=== PATIENT | female | born 1940 | race Caucasian/White ===

== ENCOUNTER 2017-12-12 12:18 | Emergency (ER) | payer MEDICARE, SELFPAY ==
[2017-12-12 12:20] VITALS: BP 191/78; PULSE 60; RESP 16; TEMP 36.7; O2SAT 98; BMI 26.1
--- NOTE | 2017-12-12 13:05 | EKG12_ITS ---
Test Reason : SOB Blood Pressure : / mmHG Vent. Rate : 060 BPM Atrial Rate : 051 BPM P-R Int : 000 ms QRS Dur : 158 ms QT Int : 474 ms P-R-T Axes : 000 -68 101 degrees QTc Int : 474 ms Ventricular-paced rhythm Abnormal ECG Confirmed by STEFANIE MOHR, SERGIO ([id number]), business editor PUSHPA MONTANO ([id number] on 12/14/2017 10:36:29 AM Referred By: VERONIKA Confirmed By:SERGIO WATTS MD
[2017-12-12 13:44] VITALS: BP 165/81; PULSE 60; RESP 16; O2SAT 96
[2017-12-12 13:48] LABS: Prothrombin Time (Protime)PT. 22.2 SECONDS (11.7-14.9)
--- NOTE | 2017-12-12 14:05 | RAD_ITS ---
STUDY: X-RAY CHEST REASON FOR EXAM: Female, 77 years old. Chest pain. Dyspnea on extrusion. TECHNIQUE: PA and lateral views of the chest. COMPARISON: None. FINDINGS: The lungs are clear and expanded. There is no demonstrated pleural abnormality. There is moderate cardiac enlargement. A left-sided dual-chamber pacemaker is seen. Normal mediastinum and luis. Normal visualized pulmonary arteries. There is atherosclerotic calcification of the aortic arch with tortuosity. There are diffuse degenerative changes of the visualized thoracic spine. There is degenerative osteoarthritis of the bilateral shoulders. There is no demonstrated abnormality of the visualized soft tissue structures of the upper abdomen. RAD/Chest PA and Lateral IMPRESSION: Moderate cardiomegaly. Electronically Signed: Trevin Montalvo MD at 14:27 EST Tel [phone], Service support ,
[2017-12-12 14:16] VITALS: BP 136/73; PULSE 60; RESP 16; O2SAT 96
[2017-12-12 15:05] VITALS: BP 163/67; PULSE 60; RESP 16; O2SAT 96
[2017-12-12 15:34] LABS: Anion Gap 10 (5-15); BUN 20 mg/dL (7-18); BUN/Creat Ratio 20.6 RATIO (10-20); Calcium,Total 9.4 mg/dL (8.5-10.1); Chloride 97 mmol/L (98-107); Creatinine, Serum 0.97 mg/dL (0.55-1.02); EST Glomerular Filtration Rate 59 mL/min (>60); Est Glom Filt Rate - Afr Amer 71 mL/min (>60); Estimated Creatinine Clearance 38.41 ml/min; Glucose 126 mg/dL (74-106); Potassium 4.2 mmol/L (3.5-5.1); Sodium Level 132 mmol/L (136-145)
[2017-12-12 15:36] LABS: BNP,B-Type NATRIURETIC PEPTIDE 225.5 pg/mL (0-100)
[2017-12-12 16:04] VITALS: BP 171/62; PULSE 60; RESP 16; O2SAT 96
--- NOTE | 2017-12-12 16:46 | ED.DCSUM_ITS ---
- ER Visit Summary Date of Service: 12/12/17 Chief Complaint: Increased shortness of breath, orthopnea and dyspnea on exertion History of Present Illness: The patient is a 77 F who has history of CHF, chronic atrial fibrillation on Coumadin, who presents with increasing dyspnea and orthopnea. She has chronic dyspnea on exertion. She also reported burning sensation in her chest since early this morning. The burning sensation was not made worse with walking or activity. She admits that she is not compliant with her diet and specifically salt. She states she is compliant with her medication , however. She was admitted to [facility] the end of last year and had 2 L of brown murky fluid drained from her pericardium. The fluid apparently was misplaced according to the patient and her granddaughter. She denies any fever, chills night sweats. She denies any visual, ocular or auditory symptoms. She denies any nausea, vomiting or diarrhea. She denies any urologic symptoms. She denies headache or weakness. She is on Coumadin but does not report bruising easily. Physical Examination: Vital signs are remarkable elevated blood pressure 191/ 78. Heart rate is 60 and paced on the rhythm, respiratory rate 16 and pulse ox 98% on room air. Head is atraumatic normocephalic. Pupils are equal round reactive. Extraocular muscles are intact. TMs are pearly white with landmarks noted. Nares patent with no drainage. Posterior pharynx without erythema or exudate. Uvula is midline. There is no dysphonia or dysphasia. Trachea is midline. There is no stridor with auscultation of the neck. Heart is regular without murmur, gallop or rub. S1 and S2 are normal. Lungs are clear to auscultation with good movement of air bilaterally. Abdomen soft nontender with no palpable subtle mass abdominal bruit. She has no reproducible chest pain. There is 2+ pitting edema of the lower extremities. Neuro exam is nonfocal. Test Results: She reveals a ventricular paced rhythm with a rate of 60. The underlying rhythm is a bed. Chest x-ray reveals cardiomegaly and mild CHF. Electrode panel is unremarkable. Troponin is less than 0.02 with hours of pain. BNP is 225. Emergency Department Course and Treatment: Will increase Lasix for the next 3-5 days and have her follow-up with her primary care physician Dr. Peñaloza. Stressed the importance of compliance with her diet. Treatment Plan: Diuresis as an outpatient with outpatient follow-up Disposition: Discharge to home Impression: 1. Exacerbation of CHF 2. History of atrial fibrillation on Coumadin 3. History of pericardial effusion secondary to pericarditis This note was generated with [employer] software. It may contain incorrect words, spelling, and punctuation that were not noted in review of the chart prior to signing ED Disposition - Plan for ED Patient: Disposition: Home or Assisted Living Chief Complaint: Shortness of Breath Instructions: ED CHF General Referrals: Rashad Peñaloza [Primary Care Provider] - 3-5 Days Additional Instructions: Take an additional Lasix pill at 3:00 for the next 3 days
[2017-12-12] MEDS: Furosemide 40 MG Tablet 80 MG PO (17:07)
[2017-12-12 17:10] VITALS: BP 178/90; PULSE 62; RESP 16; O2SAT 97
== END 2017-12-12 17:11 | disposition home or self-care (01) ==
PROVIDERS: Emergency Provider Emergency Medicine; Family Provider Family Medicine; PCP Family Medicine
DX: I50.9 Heart failure, unspecified (principal); I48.91 Unspecified atrial fibrillation; Z79.01 Long term (current) use of anticoagulants; I31.9 Disease of pericardium, unspecified; Z79.899 Other long term (current) drug therapy
CPT/HCPCS: 36415; 71046; 80048; 83880; 84484; 85610; 93005; 99283

== ENCOUNTER → 2020-06-02 12:55 | Outpatient (CLI) | payer MEDICARE, SELFPAY ==
[2020-01-20 14:40] VITALS: BMI 26.5
--- NOTE | 2020-06-02 12:58 | ECHOD_ITS ---
Reason For Study: PHTN Procedure This was a 2D Doppler, Color Flow transthoracic echocardiogram. The study was technically difficult. Exam performed in department. Left Ventricle Normal size and thickness. The estimated ejection fraction is 65 %. Unable to assess diastolic dysfunction due to arrhythmia. No regional wall motion abnormalities noted. Right Ventricle Normal size and thickness. ICD or pacer leads identified within the right ventricle. A moderator band is seen in the right ventricle. Normal systolic function. Atria The left atrium is moderately enlarged. Normal right atrium. Normal atrial septum. Mitral Valve Anterior leaflet diffuse mitral valve thickening. There is no mitral valve stenosis. Mild (1+) posteriorly directed mitral valve insufficiency. Tricuspid Valve Normal tricuspid valve. Mild (1+) tricuspid valve insufficiency. Right ventricular systolic pressure estimated to be 43 mmHg. Mild pulmonary hypertension. Aortic Valve Trisinus/trileaflet aortic valve. Moderate diffuse aortic valve thickening. Trivial aortic valve insufficiency. Pulmonic Valve Normal pulmonic valve. Trivial pulmonic valve insufficiency. Great Vessels Normal aortic root. Normal arch. The inferior vena cava is dilated. No collapse of the inferior vena cava. Pericardium/Pleural No pericardial effusion. MMode/2D Measurements & Calculations LVIDd: 4.4 cm IVSd: 1.3 cm LVOT diam: 2.1 cm LVIDs: 2.6 cm LVPWd: 0.96 cm LVOT area: 3.6 cm2 RVDd: 3.5 cm FS: 40.7 % Ao root diam: 3.2 cm LAV(MOD-bp): 103.6 ml LA A4 area: 29.3 cm2 LA dimension: 5.3 cm LAV(MOD-bp) Indexed: 61.8 ml/m2 LAV(MOD-sp2): 103.9 ml LAV(MOD-sp4): 100.4 ml RA A4 area: 18.2 cm2 Doppler Measurements & Calculations MV E max stephanie: 174.3 cm/sec Ao V2 max: 145.1 cm/sec AI max stephanie: 375.3 cm/sec Ao max P.5 mmHg AI max P.4 mmHg FRANCHESCA(V,D): 2.7 cm2 AI dec slope: 229.8 cm/sec2 AI P1/2t: 478.4 msec LV V1 max: 109.7 cm/sec MR max stephanie: 517.7 cm/sec PA V2 max: 75.8 cm/sec LV V1 max P.8 mmHg MR max P.2 mmHg TR max stephanie: 285.2 cm/sec TR max P.5 mmHg Interpretation Summary The estimated ejection fraction is 65 %. Unable to assess diastolic dysfunction due to arrhythmia. The left atrium is moderately enlarged. Mild (1+) posteriorly directed mitral valve insufficiency. Mild (1+) tricuspid valve insufficiency. Right ventricular systolic pressure estimated to be 43 mmHg. Mild pulmonary hypertension. Trivial aortic valve insufficiency. There is no comparison study available. Ordering Physician: Joseph Peterson Referring Physician: Rashad Peñaloza Performed By: Deborah Pandya RVT, RDCS and Student
== END ==
PROVIDERS: PCP Family Medicine; Referring Provider Internal Medicine Cardiovascular Disease; Visit Provider Internal Medicine Cardiovascular Disease
DX: I31.3 Pericardial effusion (noninflammatory) (principal)
CPT/HCPCS: 93306

== ENCOUNTER → 2021-01-04 09:36 | Outpatient (CLI) | payer MEDICARE, SELFPAY ==
[2020-12-15 15:11] VITALS: BMI 27.4
[2021-01-04 10:20] LABS: Absolute Lymphocyte Count 1.51 X10^3/uL (0.83-4.51); Absolute Neutrophil Count 5.5 X10^3/uL (2.0-7.7); Basophil# 0.06 X10^3/uL; Basophil% 0.8 % (0-1); Eosinophil# 0.17 X10^3/uL; Eosinophils% 2.2 % (0-5); Hematocrit 33.9 % (37-47); Hemoglobin 11.1 g/dL (12.0-15.0); Lymphocyte # 1.51 X10^3/ul (4.0); Lymphocyte % 19.1 % (19-41); Mean Corp Hgb Conc 32.7 g/dL (32-36); Mean Corpuscular Hgb 29.8 pg (27.0-32.0); Mean Corpuscular Volume 90.9 fL (81-99); Monocyte# 0.59 X10^3/uL; Monocyte% 7.5 % (0-10); NRBC Flagged by Analyzer 0 % (0-5); Neutrophil # 5.54 X10^3/uL (2.7-7.7); Neutrophil % 70.1 % (47-70); Platelet Count 326 K/mm3 (150-450); RBC Distribution Width CV 14.3 % (11.6-14.6); RBC Distribution Width SD 47.2 fl (35.1-43.9); Red Blood Count 3.73 M/mm3 (4.2-5.4); White Blood Count 7.9 K/mm3 (4.4-11.0)
[2021-01-04 10:44] LABS: BNP,B-Type NATRIURETIC PEPTIDE 411.5 pg/mL (0-100)
[2021-01-04 10:55] LABS: AST(SGOT) 26 U/L (15-37); Alanine Aminotransfer ALT/SGPT 29 U/L (13-56); Alkaline Phosphatase 106 U/L (45-117); Anion Gap 6 (5-15); BUN 12 mg/dL (7-18); BUN/Creat Ratio 14.4 RATIO (10-20); Calcium,Total 9.3 mg/dL (8.5-10.1); Chloride 98 mmol/L (98-107); Creatinine, Serum 0.83 mg/dL (0.55-1.02); EST Glomerular Filtration Rate 70 mL/min (>60); Est Glom Filt Rate - Afr Amer 85 mL/min (>60); Globulin 3.9 g/dL (2.2-4.2); Glucose 97 mg/dL (74-106); Potassium 3.4 mmol/L (3.5-5.1); Protein, Total 7.9 g/dL (6.4-8.2); Sodium Level 135 mmol/L (136-145); T4 Free Direct 1.45 ng/dL (0.76-1.46); Thyroid Stim Hormone (TSH) 0.29 uIU/mL (0.358-3.74)
== END ==
PROVIDERS: PCP Family Medicine; Referring Provider Nurse Practitioner Family; Visit Provider Nurse Practitioner Family
DX: I11.0 Hypertensive heart disease with heart failure (principal); I50.30 Unspecified diastolic (congestive) heart failure; I48.11 Longstanding persistent atrial fibrillation; R06.00 Dyspnea, unspecified; I31.3 Pericardial effusion (noninflammatory); Z95.0 Presence of cardiac pacemaker
CPT/HCPCS: 36415; 80053; 83880; 84439; 84443; 85025

== ENCOUNTER → 2021-01-06 12:51 | Outpatient (CLI) | payer MEDICARE, SELFPAY ==
[2020-12-15 15:11] VITALS: BMI 27.4
--- NOTE | 2021-01-06 13:18 | RAD_ITS ---
STUDY: X-RAY CHEST REASON FOR EXAM: Female, 80 years old. Shortness of breath, hx diastolic CHF -- Do prior to echo at 2pm today TECHNIQUE: 2 views COMPARISON: None. FINDINGS: Lung salsa are well-expanded without consolidation, focal atelectasis or a substantial pleural effusion. There is no demonstrated pleural abnormality. Cardiomegaly with right atrial pacemaker lead and 2 right ventricular pacemaker leads in good position. Normal mediastinum and luis. Normal visualized pulmonary arteries. There is atherosclerotic calcification of the aortic arch with tortuosity. Demineralized osseous structures with diffuse degenerative disc changes and a moderate increase in general kyphosis. Osteoarthritic changes of the glenohumeral joints and bilateral chronic rotator cuff changes, right greater than left. There is no demonstrated abnormality of the visualized soft tissue structures of the upper abdomen. RAD/Chest PA and Lateral IMPRESSION: Negative for consolidation, focal atelectasis or a substantial pleural effusion. Cardiomegaly. ICD in good position. Atherosclerotic changes in the aorta. Benign osseous findings as described above. Electronically Signed: Linh Castellanos MD at 16:34 EST , Service support ,
--- NOTE | 2021-01-06 13:35 | ECHOD_ITS ---
Reason For Study: MURMUR Procedure This was a 2D Doppler, Color Flow transthoracic echocardiogram. The study was technically difficult. Exam performed in department. Left Ventricle Normal LV size. Left ventricular systolic function is normal. The estimated ejection fraction is 65 %. Unable to assess diastolic dysfunction. No regional wall motion abnormalities noted. Right Ventricle Normal RV size. ICD or pacer leads identified within the right ventricle. Normal systolic function. Atria The left atrium is severely enlarged. Normal right atrium. ICD or pacer leads identified within the right atrium. No doppler evidence for ASD. Mitral Valve There is no mitral annular calcification. Moderate focal mitral valve calcification of the anterior leaflet. Moderately severe (3+) eccentric mitral valve insufficiency. Tricuspid Valve Normal tricuspid valve. Mild tricuspid valve insufficiency. Right ventricular systolic pressure estimated to be 42 mmHg. Aortic Valve Trisinus/trileaflet aortic valve. Mild diffuse aortic valve thickening. Mild focal aortic valve calcification. Mild (1+) aortic valve insufficiency. Pulmonic Valve The pulmonic valve is not well visualized. Trivial pulmonic valve insufficiency. Great Vessels Mildly dilated aortic root. Pericardium/Pleural No pericardial effusion. MMode/2D Measurements & Calculations LVIDd: 3.7 cm IVSd: 1.2 cm LVOT diam: 2.0 cm LVIDs: 2.2 cm LVPWd: 1.2 cm LVOT area: 3.3 cm2 RVDd: 3.1 cm FS: 39.3 % Ao root diam: 4.2 cm LAV(MOD-bp): 100.0 ml LVAd ap4: 24.1 cm2 LAV(MOD-bp) Indexed: 59.1 ml/m2 EDV(MOD-sp4): 66.2 ml LAV(MOD-sp2): 108.3 ml EDV(sp4-el): 68.2 ml LAV(MOD-sp4): 88.8 ml LVAs ap4: 13.9 cm2 ESV(MOD-sp4): 23.2 ml ESV(sp4-el): 24.3 ml EF(MOD-sp4): 64.9 % EF(sp4-el): 64.4 % SV(MOD-sp4): 43.0 ml SV(sp4-el): 43.9 ml LA A4 area: 28.0 cm2 LA dimension(2D): 4.8 cm RA A4 area: 11.0 cm2 Time Measurements MV dec time: 0.18 sec Doppler Measurements & Calculations MV E max stephanie: 156.5 cm/sec Ao V2 max: 199.8 cm/sec AI max stephanie: 488.4 cm/sec Ao max P.0 mmHg AI max P.6 mmHg Ao V2 mean: 137.1 cm/sec AI dec slope: 218.0 cm/sec2 Ao mean P.5 mmHg AI P1/2t: 656.2 msec Ao V2 VTI: 38.3 cm FRANCHESCA(I,D): 2.3 cm2 FRANCHESCA(V,D): 2.3 cm2 LV V1 max: 141.4 cm/sec SV(LVOT): 89.8 ml PA V2 max: 104.7 cm/sec LV V1 max P.0 mmHg LV V1 mean P.2 mmHg LV V1 mean: 95.9 cm/sec LV V1 VTI: 27.2 cm TR max stephanie: 301.6 cm/sec TR max P.8 mmHg Interpretation Summary The study was technically difficult. Left ventricular systolic function is normal. The estimated ejection fraction is 65 %. The left atrium is severely enlarged. Moderate focal mitral valve calcification of the anterior leaflet. Moderately severe (3+) eccentric mitral valve insufficiency. Mild tricuspid valve insufficiency. Mild diffuse aortic valve thickening. Mild focal aortic valve calcification. Mild (1+) aortic valve insufficiency. Trivial pulmonic valve insufficiency. Mildly dilated aortic root. Right ventricular systolic pressure estimated to be 42 mmHg. Unable to assess diastolic dysfunction. ICD or pacer leads identified within the right atrium ICD or pacer leads identified within the right ventricle. Ordering Physician: Anthony Donato Referring Physician: ANTHONY POWER Performed By: Basilia Dong, ALEXUS, RVT
[2021-01-06 15:29] LABS: Hemoglobin 10.4 g/dL (12.0-15.0); Mean Corp Hgb Conc 31.5 g/dL (32-36); Mean Corpuscular Volume 91.9 fL (81-99); Platelet Count 353 K/mm3 (150-450); RBC Distribution Width CV 14.3 % (11.6-14.6); RBC Distribution Width SD 48.2 fl (35.1-43.9); Red Blood Count 3.59 M/mm3 (4.2-5.4); White Blood Count 7.3 K/mm3 (4.4-11.0)
[2021-01-06 15:46] LABS: Anion Gap 8 (5-15); BUN 14 mg/dL (7-18); BUN/Creat Ratio 14.9 RATIO (10-20); Calcium,Total 9.3 mg/dL (8.5-10.1); Chloride 96 mmol/L (98-107); Creatinine, Serum 0.94 mg/dL (0.55-1.02); EST Glomerular Filtration Rate 61 mL/min (>60); Est Glom Filt Rate - Afr Amer 73 mL/min (>60); Glucose 99 mg/dL (74-106); Potassium 3.4 mmol/L (3.5-5.1); Sodium Level 135 mmol/L (136-145)
[2021-01-06 15:52] LABS: International Normalized Ratio 2.4; Prothrombin Time (Protime)PT. 25.4 SECONDS (11.7-14.9)
== END ==
PROVIDERS: PCP Family Medicine; Referring Provider Nurse Practitioner Family; Visit Provider Nurse Practitioner Family
DX: I50.32 Chronic diastolic (congestive) heart failure (principal); R06.02 Shortness of breath; E87.6 Hypokalemia; I48.11 Longstanding persistent atrial fibrillation; I31.3 Pericardial effusion (noninflammatory); I35.8 Other nonrheumatic aortic valve disorders; Z79.01 Long term (current) use of anticoagulants; Z95.0 Presence of cardiac pacemaker
CPT/HCPCS: 36415; 71046; 80048; 83880; 85027; 85610; 93306

== ENCOUNTER 2021-01-07 09:30 | Outpatient (RCR) | payer MEDICARE, SELFPAY ==
[2020-12-15 15:11] VITALS: BMI 27.4
--- NOTE | 2021-01-05 12:12 | HP.PTEVAL_ITS ---
Patient's Visit Information JEANINE JARAMILLO is a 80 year old F referred to Physical Therapy by Nilson Coleman PA-C with a diagnosis of BACK AND LEG PAIN. Date of Evaluation: 01/05/21 Physical Therapist: Nilda Ramirez PT, Cert MDT - Visit Plan Frequency: 2-3x /Week Duration: 4-6 Weeks Plan: *PACEMAKER*. NO ULTRASOUND OR E-STIM. POSTURE CORRECTION/STRENGTHENING, INSTRUCTION IN APPROPRIATE BODY MECHANICS AND ACTIVITY MODIFICATIONS. DLS STARTING WITH A NEUTRAL SPINE PROGRESSING ROM TOLERATED. YASMIN LE ROM, STRETCHING AND STRENGTHENING. HEP INSTRUCTION. - Subjective Work/Leisure: RETIRED. Present symptoms: YASMIN LOW BACK PAIN, YASMIN HIP PAIN, YASMIN THIGH PAIN, YASMIN LEG AND YASMIN FOOT PAIN. PATIENT DENIES YASMIN LE NUMBNESS AND TINGLING. Present since: CHRONIC LOW BACK PAIN BUT GOT WORSE LAST WEEK. Pain Scale: WORST 8/10, LEAST 6/10. Currently: 04/07. Commenced as a result of: NO APPARENT REASON. WOKE UP WITH IT AND COULDN'T STAND. Symptoms at onset: FROM THE WAIST DOWN. BUT RIGHT BUTTOCK STARTED HURTING MILDLY A FEW WEEKS AGO. THEN HAD THE SEVERE EPISODE LAST WEEK WHEN COULDN'T GET OUT OF BED. Worse: MVMT, TRYING TO GET OUT OF A CHAIR, BENDING OVER IS ALMOST IMPOSSIBLE, SITTING VERY LONG, LYING VERY LONG, STANDING, WALKING. REALLY SORE IN YASMIN BUTTOCK AREAS IN SITTING. Better: REST, FREQUENT CHANGE OF POSITION, LYING DOWN, ICE PACK, PROPPING LEGS UP WITH PILLOWS. Disturbed sleep: YES. Previous history/Previ ous treatment: NO BACK SURGERY, NO INJECTIONS. EPISODIC LOW BACK PAIN AND EPISODES OF BACK FREEZING UP FOR YEARS FOR NO APPARENT REASON AND TREATMENTS BY CHIROPRACTOR. PT OFF AND ON FOR 8-10 YEARS - SOMETIMES HELPS AND IT HAS BEEN PRETTY GOOD OVER-ALL UNTIL LAST WEEK. PATIENT REPORTS THAT AFTER SHE STARTED NOTICING INCREASED RIGHT BUTTOCK PAIN SHE WENT TO A MASSAGE THERPIST AND FELT BETTER DECEMBER 30 2019 BUT SHE THINKS IT WAS THE NEXT DAY THAT SHE COULDN'T GET OUT OF BED AND CANCELLED HER HEART ULTRASOUND. Treatment this episode: PT ORDER. Coughing/sneezing/straining: POSITIVE. Gait: PATIENT REPORTS SHE IS LIMPING AND IT IS VERY HARD TO WALK DUE TO THE PAIN SINCE LAST WEEK. GETTING A LITTLE BETTER. Difficulty initiating urinatin: NO. Accidents: NO. Unexplained weight loss: NO. Imaging: RECENT LOW BACK X-RAYS - PATIENT REPORTS RAY MAI REILLY TOLD HER IT IS BONE ON BONE IN HER BACK. PMH/Recent major surgery: H/O HAVING FLUID AROUND HEART. ARTHRITIS, CHRONIC PAIN PRETTY MUCH ALL OVER AND PAIN MEDICINE HELPS SOME. R TKR. YASMIN SHLD PAIN AND DYSFUNCTION - REVERSE TSR'S RECOMMENDED PER PATIENT REPORT. OTHER: HAVING US OF THE HEART TOMORROW FOR INCREASED LEG/FOOT SWELLING. HEART MEDICATION WAS INCREASED ABOUT 3 WEEKS AGO. INCREASED HER DIURETICS SUNDAY. *PACEMAKER* - Objective Sitting/Standing Posture: POOR. REDUCED LORDOSIS. SCOLIOSIS. INCREASED KYPHOSIS. Active Correction of posture: WORSE. Other Observations: SLOW ANTALGIC GAIT INTO PT WITHOUT ANY ASSISTIVE DEVICES AND STOPS OCCASSIONALLY TO CATCH HER BREATHE BUT REFUSES OFFERS TO SIT DOWN AND REST. PATIENT IS VERY UE DEPENDENT TO TRANSFER FROM SIT TO STAND AND HAS A HARD TIME TRYING TO GET ERECT (UNABLE TO STAND UP STRAIGHT) AND INITIATE GAIT. YASMIN LEG, ANKLE AND FOOT EDEMA L>R AND PATIENT REPORTS THIS IS NEW AND HER HEART DOCTOR IS AWARE. Motor deficit: YASMIN LE STRENGTH GROSSLY 4/5 WITH MMT'ING. Sensory deficit: YASMIN LE LIGHT TOUCH SENSATION INTACT AND SYMMETRICAL. ROM deficit: TIGHT YASMIN LE HIP FLEXORS, HS'S AND GASTROC-SOLEUS COMPLEX'S. Reflexes: NT. Dural Signs: POSITIVE YASMIN LE'S. Lumbar mvmt loss: flex - MOD. ext - ABA. R SG - ABA. L SG - ABA. Core strength: POOR. Palpation: TENDERNESS THROUGHOUT LOW BACK AND BUTTOCK AREAS WITH LIGHT PALPATION. TREATMENT: NEUROMUSCULAR REEDUCATION - RETRAINING OF MVMT AND POSTURE FOR SITTING, LYING AND STANDING ACTIVITIES. - Goals Goal 1:: DECREASE C/O LOW BACK AND YASMIN LE PAIN. Goal Time Frame: 4-6 Weeks Goal 2:: IMPROVE PERSONAL CARE, LIFTING, WALKING, SITTING, STANDING, SLEEP, SOCIAL LIFE, TRAVEL AND HOMEMAKING FUNCTION. Goal Time Frame: 4-6 Weeks Goal 3:: INSTRUCT IN PROPHYLAXIS Goal Time Frame: 4-6 Weeks - Anticipated Interventions Patient/Client Instruction: Educate patient on: Condition, Plan of Care, Risk Factors For the Purpose of:: To improve self management Therapeutic Exercise to Include: Strength training, Body mechanics, Postural training, Flexibilty training, Gait and locomotor training, Neuromotor development, Dynamic Lumbar Stabilization For the Purpose of:: To decrease pain, To improve muscle performance and motor function, To increase tolerance to activity/condition/position, To improve ability of physical actions for home/community/work/leisure, To improve gait and locomotor functions Thank you for the opportunity to evaluate your patient. For Medicare and Medicare HMO plans, please review the plan of care and approve it. It will need to be FAXED BACK to us at [phone] for Medicare purposes. For Medicare only, by signing this I certify the plan of care. Please let me know if there are questions or concerns regarding this plan of care. Physician S ignature: Date:
== END 2021-01-07 19:00 | disposition home or self-care (01) ==
LOC: PT 09:30
PROVIDERS: PCP Family Medicine; Referring Provider Physician Assistant Surgical; Visit Provider Physician Assistant Surgical
DX: M51.36 Other intervertebral disc degeneration, lumbar region (principal)
CPT/HCPCS: 97110; 97112; 97162

== ENCOUNTER → 2021-01-10 10:18 | Outpatient (CLI) | payer MEDICARE, SELFPAY ==
[2021-01-06 15:35] VITALS: BMI 26.2
[2021-01-10 11:43] LABS: Absolute Lymphocyte Count 1.58 X10^3/uL (0.83-4.51); Absolute Neutrophil Count 3.7 X10^3/uL (2.0-7.7); Basophil# 0.05 X10^3/uL; Basophil% 0.8 % (0-1); Eosinophil# 0.17 X10^3/uL; Eosinophils% 2.8 % (0-5); Hematocrit 34.1 % (37-47); Hemoglobin 10.7 g/dL (12.0-15.0); Lymphocyte # 1.58 X10^3/ul (4.0); Lymphocyte % 26.2 % (19-41); Mean Corp Hgb Conc 31.4 g/dL (32-36); Mean Corpuscular Hgb 28.7 pg (27.0-32.0); Mean Corpuscular Volume 91.4 fL (81-99); Mean Platelet Vol. 8.9 fl (6.2-12.0); Monocyte# 0.55 X10^3/uL; Monocyte% 9.1 % (0-10); NRBC Flagged by Analyzer 0 % (0-5); Neutrophil # 3.66 X10^3/uL (2.7-7.7); Neutrophil % 60.8 % (47-70); Platelet Count 321 K/mm3 (150-450); RBC Distribution Width CV 14.2 % (11.6-14.6); RBC Distribution Width SD 48.2 fl (35.1-43.9); Red Blood Count 3.73 M/mm3 (4.2-5.4)
[2021-01-10 12:01] LABS: Anion Gap 5 (5-15); BUN 21 mg/dL (7-18); Chloride 99 mmol/L (98-107); Creatinine, Serum 0.96 mg/dL (0.55-1.02); EST Glomerular Filtration Rate 60 mL/min (>60); Est Glom Filt Rate - Afr Amer 72 mL/min (>60); Glucose 81 mg/dL (74-106); Potassium 3.6 mmol/L (3.5-5.1); Sodium Level 135 mmol/L (136-145)
== END ==
PROVIDERS: PCP Family Medicine; Referring Provider Nurse Practitioner Family; Visit Provider Nurse Practitioner Family
DX: I11.0 Hypertensive heart disease with heart failure (principal); I50.32 Chronic diastolic (congestive) heart failure; I34.0 Nonrheumatic mitral (valve) insufficiency; I48.11 Longstanding persistent atrial fibrillation; I31.3 Pericardial effusion (noninflammatory); D64.9 Anemia, unspecified
CPT/HCPCS: 36415; 80048; 85025

== ENCOUNTER → 2021-06-22 14:52 | Outpatient (CLI) | payer MEDICARE, SELFPAY ==
[2021-06-03 13:13] VITALS: BMI 25.7
--- NOTE | 2021-06-22 14:55 | ECHOD_ITS ---
Reason For Study: Murmur Procedure This was a 2D Doppler, Color Flow transthoracic echocardiogram. Exam performed in department. Left Ventricle Normal LV size. Left ventricular systolic function is normal. The estimated ejection fraction is 65 %. Unable to assess diastolic dysfunction. No regional wall motion abnormalities noted. Right Ventricle Normal RV size. ICD or pacer leads identified within the right ventricle. Normal systolic function. Atria The left atrium is severely enlarged. The right atrium is mildly enlarged. ICD or pacer leads identified within the right atrium. No doppler evidence for ASD. Mitral Valve There is no mitral annular calcification. Moderate focal mitral valve calcification of the anterior leaflet. Moderate (2+) eccentric mitral valve insufficiency. Tricuspid Valve Normal tricuspid valve. Trivial tricuspid valve insufficiency. Right ventricular systolic pressure estimated to be 43 mmHg. Aortic Valve Trisinus/trileaflet aortic valve. Mild focal aortic valve calcification. Trivial aortic valve insufficiency. Pulmonic Valve The pulmonic valve is not well visualized. Trivial pulmonic valve insufficiency. Great Vessels Normal sized aortic root. Pericardium/Pleural No pericardial effusion. MMode/2D Measurements & Calculations LVIDd: 3.8 cm IVSd: 1.4 cm Ao root diam: 3.5 cm LVIDs: 2.1 cm LVPWd: 1.2 cm RVDd: 3.1 cm FS: 45.2 % LAV(MOD-bp): 134.6 ml LVAd ap4: 23.0 cm2 SV(MOD-sp4): 40.0 ml LAV(MOD-bp) Indexed: 83.2 ml/m2 LVLd ap4: 7.0 cm LAV(MOD-sp2): 118.1 ml EDV(MOD-sp4): 63.6 ml LAV(MOD-sp4): 153.6 ml EDV(sp4-el): 64.4 ml LVAs ap4: 13.1 cm2 LVLs ap4: 6.0 cm ESV(MOD-sp4): 23.7 ml ESV(sp4-el): 24.1 ml EF(MOD-sp4): 62.8 % EF(sp4-el): 62.6 % SV(sp4-el): 40.3 ml LA A4 area: 37.4 cm2 LA dimension(2D): 5.9 cm RA A4 area: 16.0 cm2 Doppler Measurements & Calculations MV E max stephanie: 173.6 cm/sec MV V2 max: 196.8 cm/sec Ao V2 max: 192.7 cm/sec MV max P.5 mmHg Ao max P.9 mmHg MV V2 mean: 74.5 cm/sec Ao V2 mean: 133.6 cm/sec MV mean P.5 mmHg Ao mean P.9 mmHg MV V2 VTI: 44.7 cm Ao V2 VTI: 39.0 cm AI max stephanie: 435.1 cm/sec LV V1 max: 144.5 cm/sec PA V2 max: 88.6 cm/sec AI max P.3 mmHg LV V1 max P.4 mmHg AI dec slope: 213.6 cm/sec2 AI P1/2t: 596.8 msec PI end-d stephanie: 107.9 cm/sec TR max stephanie: 317.3 cm/sec TR max P.3 mmHg ECHO/Echo Complete Interpretation Summary Left ventricular systolic function is normal. The estimated ejection fraction is 65 %. The left atrium is severely enlarged. The right atrium is mildly enlarged. Moderate focal mitral valve calcification of the anterior leaflet. Moderate (2+) eccentric mitral valve insufficiency. Trivial tricuspid valve insufficiency. Mild focal aortic valve calcification. Trivial aortic valve insufficiency. Trivial pulmonic valve insufficiency. Right ventricular systolic pressure estimated to be 43 mmHg. Unable to assess diastolic dysfunction. Ordering Physician: Garfield Purcell Referring Physician: Rashad Peñaloza Performed By: Nicole Donato, ALEXUS, RVT
== END ==
LOC: CVS 14:54
PROVIDERS: PCP Family Medicine; Referring Provider Internal Medicine Cardiovascular Disease; Visit Provider Internal Medicine Cardiovascular Disease
DX: I50.32 Chronic diastolic (congestive) heart failure (principal); I34.0 Nonrheumatic mitral (valve) insufficiency
CPT/HCPCS: 93306

== ENCOUNTER 2021-12-26 16:32 | Outpatient (CLI) | payer MEDICARE, SELFPAY ==
[2021-12-26 17:06] LABS: Absolute Lymphocyte Count 1.64 X10^3/uL (0.83-4.51); Absolute Neutrophil Count 4.4 X10^3/uL (2.0-7.7); Basophil# 0.05 X10^3/uL; Basophil% 0.7 % (0-1); Eosinophil# 0.37 X10^3/uL; Eosinophils% 5.1 % (0-5); Hematocrit 34.8 % (37-47); Hemoglobin 11.7 g/dL (12.0-15.0); Lymphocyte # 1.64 X10^3/ul (0.83-4.51); Lymphocyte % 22.5 % (19-41); Mean Corp Hgb Conc 33.6 g/dL (32-36); Mean Corpuscular Hgb 29.8 pg (27.0-32.0); Mean Corpuscular Volume 88.8 fL (81-99); Mean Platelet Vol. 9.1 fl (6.2-12.0); Monocyte# 0.76 X10^3/uL; Monocyte% 10.4 % (0-10); NRBC Flagged by Analyzer 0 % (0-5); Neutrophil # 4.44 X10^3/uL (2.7-7.7); Platelet Count 266 K/mm3 (150-450); RBC Distribution Width CV 14.3 % (11.6-14.6); RBC Distribution Width SD 46.3 fl (35.1-43.9); Red Blood Count 3.92 M/mm3 (4.2-5.4); White Blood Count 7.3 K/mm3 (4.4-11.0)
[2021-12-26 17:49] LABS: AST(SGOT) 23 U/L (15-37); Alanine Aminotransfer ALT/SGPT 22 U/L (13-56); Albumin, Serum 3.8 g/dL (3.2-5.0); Alkaline Phosphatase 91 U/L (45-117); Anion Gap 3 (5-15); BUN 15 mg/dL (7-18); BUN/Creat Ratio 16.5 RATIO (10-20); Bilirubin, Direct 0.12 mg/dL (0.00-0.30); Calcium,Total 9.4 mg/dL (8.5-10.1); Chloride 99 mmol/L (98-107); Cholesterol 203 mg/dL (200); Creatinine, Serum 0.91 mg/dL (0.55-1.02); EST Glomerular Filtration Rate 63 mL/min (>60); Est Glom Filt Rate - Afr Amer 76 mL/min (>60); Globulin 3.7 g/dL (2.2-4.2); Glucose 103 mg/dL (74-106); High Density Lipoprotein 79 mg/dL; Potassium 3.7 mmol/L (3.5-5.1); Protein, Total 7.5 g/dL (6.4-8.2); Sodium Level 134 mmol/L (136-145); T4 Free Direct 1.11 ng/dL (0.76-1.46); Thyroid Stim Hormone (TSH) 0.41 uIU/mL (0.358-3.74); Triglycerides 148 mg/dL; Very Low Density Lipoprotein 30 mg/dL (5-40)
== END 2021-12-26 23:59 | disposition home or self-care (01) ==
LOC: LAB 16:34
PROVIDERS: PCP Family Medicine; Visit Provider Nurse Practitioner Gerontology
DX: R53.83 Other fatigue (principal); E78.5 Hyperlipidemia, unspecified
CPT/HCPCS: 36415; 80048; 80061; 80076; 84439; 84443; 85025

== ENCOUNTER → 2022-02-17 | Outpatient (CLI) | payer MEDICARE, SELFPAY ==
--- NOTE | 2022-02-17 10:15 | RAD_ITS ---
INDICATION: SOB EXAMINATION/TECHNIQUE: X-RAY - XR Chest 2 Views COMPARISON: 01/06/2021. FINDINGS: LINES/DEVICES: AICD visualized in the left chest with leads in the heart. LUNGS: Peribronchial cuffing bilateral hilar prominence is seen that demonstrates no significant change in comparison to the prior study, calcification of ventricular infiltrate is seen. No consolidation, edema or effusion. No pneumothorax. MEDIASTINUM AND CARDIOVASCULAR STRUCTURES: Cardiac silhouette is unchanged in comparison to the prior study, tortuosity of the thoracic aorta is seen. BONES AND SOFT TISSUES: Degenerative bone changes.. RAD/Chest PA and Lateral IMPRESSION: Cardiomegaly and tortuosity of the thoracic aorta demonstrate no change.. No radiographic evidence of acute cardiopulmonary disease. Electronically Signed: Remberto Hernandez MD at 14:35 EDT ,
[2022-02-17 11:27] LABS: BNP,B-Type NATRIURETIC PEPTIDE 272.7 pg/mL (0-100)
[2022-02-17 11:32] LABS: Anion Gap 5 (5-15); BUN 19 mg/dL (7-18); BUN/Creat Ratio 22.4 RATIO (10-20); Chloride 98 mmol/L (98-107); Creatinine, Serum 0.85 mg/dL (0.55-1.02); EST Glomerular Filtration Rate 68 mL/min (>60); Est Glom Filt Rate - Afr Amer 82 mL/min (>60); Glucose 106 mg/dL (74-106); Potassium 4.1 mmol/L (3.5-5.1); Sodium Level 133 mmol/L (136-145)
== END | disposition home or self-care (01) ==
LOC: RAD 09:59
PROVIDERS: PCP Family Medicine; Referring Provider Nurse Practitioner Family; Visit Provider Nurse Practitioner Family
DX: I50.32 Chronic diastolic (congestive) heart failure (principal); R06.02 Shortness of breath
CPT/HCPCS: 36415; 71046; 80048; 83880

== ENCOUNTER → 2022-02-24 | Outpatient (CLI) | payer MEDICARE, SELFPAY ==
[2022-02-24 13:47] LABS: Anion Gap 4 (5-15); BUN 23 mg/dL (7-18); BUN/Creat Ratio 22.5 RATIO (10-20); Calcium,Total 9.2 mg/dL (8.5-10.1); Chloride 97 mmol/L (98-107); Creatinine, Serum 1.02 mg/dL (0.55-1.02); EST Glomerular Filtration Rate 55 mL/min (>60); Est Glom Filt Rate - Afr Amer 67 mL/min (>60); Glucose 129 mg/dL (74-106); Potassium 4.3 mmol/L (3.5-5.1); Sodium Level 131 mmol/L (136-145)
== END | disposition home or self-care (01) ==
LOC: LAB 12:18
PROVIDERS: PCP Family Medicine; Referring Provider Nurse Practitioner Family; Visit Provider Nurse Practitioner Family
DX: I11.0 Hypertensive heart disease with heart failure (principal); I50.32 Chronic diastolic (congestive) heart failure; R06.02 Shortness of breath; I34.0 Nonrheumatic mitral (valve) insufficiency
CPT/HCPCS: 36415; 80048

== ENCOUNTER → 2022-03-07 | Outpatient (CLI) | payer MEDICARE, SELFPAY ==
--- NOTE | 2022-03-07 13:12 | ECHOD_ITS ---
Reason For Study: Murmur Procedure This was a 2D Doppler, Color Flow transthoracic echocardiogram. Technically difficult study, patient refused to lay in the left lateral postion. Echo was done with patient sitting upright at an angle. After Definity was explained Contrast injection was deferred by patient for fear of allergic reaction . The study was technically difficult. Exam performed in department. Left Ventricle Normal LV size. Left ventricular systolic function is normal. The estimated ejection fraction is 60 %. Diastolic function is indeterminate. No regional wall motion abnormalities noted. Right Ventricle Normal RV size. ICD or pacer leads identified within the right ventricle. Normal systolic function. Atria The left atrium is severely enlarged. The right atrium is mildly enlarged. ICD or pacer leads identified within the right atrium. No doppler evidence for ASD. Mitral Valve There is no mitral annular calcification. Moderate focal mitral valve calcification of the anterior leaflet. Mild-Moderate (1-2+) eccentric mitral valve insufficiency. Tricuspid Valve Normal tricuspid valve. Mild tricuspid valve insufficiency. Unable to estimate RV systolic pressure/pulmonary artery pressure due to technically difficult study. Aortic Valve Trisinus/trileaflet aortic valve. Mild focal aortic valve calcification. Trivial aortic valve insufficiency. Pulmonic Valve The pulmonic valve is not well visualized. Great Vessels The aortic root is not well visualized. Pericardium/Pleural No pericardial effusion. MMode/2D Measurements & Calculations LVIDd: 4.2 cm IVSd: 1.1 cm LA dimension: 5.0 cm LVIDs: 2.3 cm LVPWd: 1.1 cm RVDd: 3.8 cm FS: 46.1 % LAV(MOD-bp): 69.2 ml LA A4 area: 28.6 cm2 LAV(MOD-bp) Indexed: 43.7 ml/m2 LAV(MOD-sp2): 31.1 ml LAV(MOD-sp4): 85.7 ml Time Measurements MV dec time: 0.20 sec Doppler Measurements & Calculations MV E max rojelio: 148.6 cm/sec Lat Peak E' Rojelio: 12.9 cm/sec Med Peak E' Rojelio: 8.8 cm/sec MV A max rojelio: 22.1 cm/sec E/E' lat: 11.5 E/E' med: 16.9 MV E/A: 6.7 MV V2 max: 162.6 cm/sec MV P1/2t max rojelio: 161.6 cm/sec Ao V2 max: 126.7 cm/sec MV max P.6 mmHg MV P1/2t: 98.3 msec Ao max P.4 mmHg MV V2 mean: 73.9 cm/sec MV dec slope: 481.5 cm/sec2 MV mean P.0 mmHg MVA(P1/2t): 2.2 cm2 MV V2 VTI: 44.9 cm LV V1 max: 122.0 cm/sec MR max rojelio: 514.2 cm/sec PA V2 max: 125.2 cm/sec LV V1 max P.0 mmHg MR max P.8 mmHg MR mean rojelio: 431.1 cm/sec MR mean P.7 mmHg MR VTI: 167.7 cm ECHO/Echo Complete Interpretation Summary The study was technically difficult. Left ventricular systolic function is normal. The estimated ejection fraction is 60 %. The left atrium is severely enlarged. The right atrium is mildly enlarged. Moderate focal mitral valve calcification of the anterior leaflet. Mild-Moderate (1-2+) eccentric mitral valve insufficiency. Mild tricuspid valve insufficiency. Mild focal aortic valve calcification. Trivial aortic valve insufficiency. Unable to estimate RV systolic pressure/pulmonary artery pressure due to techni gisel difficult study. Diastolic function is indeterminate. Ordering Physician: Orquidea Anderson Referring Physician: Rashad Peñaloza Performed By: Wilmer Travis RCS
[2022-03-07 15:17] LABS: Anion Gap 4 (5-15); BUN 19 mg/dL (7-18); Calcium,Total 9.1 mg/dL (8.5-10.1); Chloride 98 mmol/L (98-107); Creatinine, Serum 0.86 mg/dL (0.55-1.02); EST Glomerular Filtration Rate 67 mL/min (>60); Est Glom Filt Rate - Afr Amer 81 mL/min (>60); Glucose 97 mg/dL (74-106); Sodium Level 133 mmol/L (136-145)
== END | disposition home or self-care (01) ==
LOC: CVS 13:11
PROVIDERS: Nurse Practitioner Family; PCP Family Medicine; Referring Provider Physician Assistant Medical; Visit Provider Physician Assistant Medical
DX: E87.1 Hypo-osmolality and hyponatremia (principal); I50.32 Chronic diastolic (congestive) heart failure; I34.0 Nonrheumatic mitral (valve) insufficiency; I25.10 Atherosclerotic heart disease of native coronary artery without angina pectoris
CPT/HCPCS: 36415; 80048; 93306

== ENCOUNTER → 2022-05-31 | Outpatient (CLI) | payer MEDICARE, SELFPAY ==
[2022-05-31 13:43] LABS: PTHIN 63.9 pg/mL (18.4-80.1)
[2022-05-31 13:47] LABS: Vitamin D,25 Hydroxy 49.3 ng/mL
[2022-05-31 13:52] LABS: AST(SGOT) 23 U/L (15-37); Alanine Aminotransfer ALT/SGPT 23 U/L (13-56); Albumin, Serum 3.5 g/dL (3.2-5.0); Alkaline Phosphatase 87 U/L (45-117); Anion Gap 5 (5-15); BUN 12 mg/dL (7-18); BUN/Creat Ratio 14.3 RATIO (10-20); Calcium,Total 9.3 mg/dL (8.5-10.1); Chloride 99 mmol/L (98-107); Creatinine, Serum 0.84 mg/dL (0.55-1.02); EST Glomerular Filtration Rate 69 mL/min (>60); Est Glom Filt Rate - Afr Amer 83 mL/min (>60); Globulin 3.6 g/dL (2.2-4.2); Glucose 124 mg/dL (74-106); Potassium 4.2 mmol/L (3.5-5.1); Protein, Total 7.1 g/dL (6.4-8.2); Sodium Level 134 mmol/L (136-145)
== END | disposition home or self-care (01) ==
LOC: LAB 12:28
PROVIDERS: PCP Family Medicine; Referring Provider Nurse Practitioner Family; Visit Provider Nurse Practitioner Family
DX: E04.2 Nontoxic multinodular goiter (principal); N25.81 Secondary hyperparathyroidism of renal origin; E55.9 Vitamin D deficiency, unspecified
CPT/HCPCS: 36415; 80053; 82306; 83970; 84443

== ENCOUNTER → 2022-09-27 | Outpatient (CLI) | payer MEDICARE, SELFPAY ==
--- NOTE | 2022-09-27 13:00 | RAD_ITS ---
STUDY: X-RAY CHEST REASON FOR EXAM: Female, 82 years old. SOB, productive cough, ATB X 3 weeks TECHNIQUE: PA and lateral views of the chest. COMPARISON: 02/17/2022 FINDINGS: Left subclavian pacemaker which is unchanged. There is hyperinflation of the lungs consistent with chronic obstructive lung disease (COPD). There is no demonstrated pleural abnormality. There is moderate cardiac enlargement. Normal mediastinum and luis. Normal visualized pulmonary arteries. There is atherosclerotic tortuosity of the aortic arch and descending thoracic aorta. Normal visualized thoracic spine. Normal visualized ribs, clavicles, and shoulders. There is no demonstrated abnormality of the visualized soft tissue structures of the upper abdomen. RAD/Chest PA and Lateral IMPRESSION: Emphysema without pneumonia or atelectasis. Electronically Signed: Darius Perez MD at 18:05 EST ,
[2022-09-27 13:29] LABS: Hematocrit 34.9 % (37-47); Hemoglobin 11.2 g/dL (12.0-15.0); Mean Corp Hgb Conc 32.1 g/dL (32-36); Mean Corpuscular Hgb 29.6 pg (27.0-32.0); Mean Corpuscular Volume 92.1 fL (81-99); Mean Platelet Vol. 8.8 fl (6.2-12.0); Platelet Count 301 K/mm3 (150-450); RBC Distribution Width CV 15.5 % (11.6-14.6); RBC Distribution Width SD 52.3 fl (35.1-43.9); Red Blood Count 3.79 M/mm3 (4.2-5.4); White Blood Count 9.1 K/mm3 (4.4-11.0)
[2022-09-27 13:59] LABS: Anion Gap 6 (5-15); BUN 16 mg/dL (7-18); BUN/Creat Ratio 16.3 RATIO (10-20); Calcium,Total 9.1 mg/dL (8.5-10.1); Chloride 95 mmol/L (98-107); Creatinine, Serum 0.98 mg/dL (0.55-1.02); EST Glomerular Filtration Rate 58 mL/min (>60); Est Glom Filt Rate - Afr Amer 70 mL/min (>60); Glucose 92 mg/dL (74-106); Potassium 4.4 mmol/L (3.5-5.1); Sodium Level 132 mmol/L (136-145)
[2022-09-27 14:01] LABS: BNP,B-Type NATRIURETIC PEPTIDE 405.2 pg/mL (0-100)
== END | disposition home or self-care (01) ==
PROVIDERS: PCP Family Medicine; Referring Provider Nurse Practitioner Family; Visit Provider Nurse Practitioner Family
DX: R05.8 Other specified cough (principal); I50.32 Chronic diastolic (congestive) heart failure; R06.02 Shortness of breath
CPT/HCPCS: 36415; 71046; 80048; 83880; 85027

== ENCOUNTER → 2022-10-04 | Outpatient (CLI) | payer MEDICARE, SELFPAY ==
[2022-10-04 17:14] LABS: Absolute Lymphocyte Count 2.71 X10^3/uL (0.83-4.51); Absolute Neutrophil Count 4.8 X10^3/uL (2.0-7.7); Basophil# 0.04 X10^3/uL; Basophil% 0.5 % (0-1); Eosinophil# 0.27 X10^3/uL; Eosinophils% 3.1 % (0-5); Hematocrit 36.8 % (37-47); Hemoglobin 11.8 g/dL (12.0-15.0); Lymphocyte # 2.71 X10^3/ul (0.83-4.51); Lymphocyte % 31.4 % (19-41); Mean Corp Hgb Conc 32.1 g/dL (32-36); Mean Corpuscular Hgb 29.4 pg (27.0-32.0); Mean Corpuscular Volume 91.8 fL (81-99); Mean Platelet Vol. 8.6 fl (6.2-12.0); Monocyte# 0.76 X10^3/uL; Monocyte% 8.8 % (0-10); NRBC Flagged by Analyzer 0 % (0-5); Neutrophil # 4.82 X10^3/uL (2.7-7.7); Neutrophil % 55.9 % (47-70); Platelet Count 284 K/mm3 (150-450); RBC Distribution Width CV 15.2 % (11.6-14.6); RBC Distribution Width SD 50.5 fl (35.1-43.9); Red Blood Count 4.01 M/mm3 (4.2-5.4); White Blood Count 8.6 K/mm3 (4.4-11.0)
[2022-10-04 17:54] LABS: Anion Gap 5 (5-15); BUN 20 mg/dL (7-18); BUN/Creat Ratio 20.7 RATIO (10-20); Calcium,Total 9.5 mg/dL (8.5-10.1); Chloride 96 mmol/L (98-107); Creatinine, Serum 0.97 mg/dL (0.55-1.02); EST Glomerular Filtration Rate 59 mL/min (>60); Est Glom Filt Rate - Afr Amer 71 mL/min (>60); Glucose 97 mg/dL (74-106); Magnesium 2.2 mg/dL (1.6-2.6); Potassium 3.9 mmol/L (3.5-5.1); Sodium Level 132 mmol/L (136-145)
[2022-10-04 17:58] LABS: BNP,B-Type NATRIURETIC PEPTIDE 323.3 pg/mL (0-100)
== END | disposition home or self-care (01) ==
LOC: LAB 16:51
PROVIDERS: PCP Family Medicine; Visit Provider Nurse Practitioner Gerontology
DX: I50.32 Chronic diastolic (congestive) heart failure (principal); R53.83 Other fatigue
CPT/HCPCS: 36415; 80048; 83735; 83880; 85025

== ENCOUNTER → 2022-10-09 | Outpatient (CLI) | payer MEDICARE, SELFPAY ==
--- NOTE | 2022-10-09 14:15 | CDU_ITS ---
Reason For Study: DIZZINESS Rt. Velocities/BP Lt. Velocities/BP Prox CCA 56.0/10.7 cm/sec. Prox CCA 87.2/14.5 cm/sec. Mid CCA 69.2/13.5 cm/sec. Mid CCA 89.4/19.0 cm/sec. Dist CCA 60.7/9.7 cm/sec. Dist CCA 71.8/15.7 cm/sec. Prox ICA 47.6/8.9 cm/sec. Prox ICA 71.2/15.4 cm/sec. Mid ICA 81.5/18.2 cm/sec. Mid ICA 87.5/24.8 cm/sec. Dist ICA 62.6/15.4 cm/sec. Dist ICA 89.7/28.1 cm/sec. Rt. ICA/CCA = 1.2. Lt. ICA/CCA = 1.0. Prox ECA 64.5/4.1 cm/sec. Prox ECA 76.5/6.2 cm/sec. Rt. Vert. 42.8/6.0 cm/sec. Lt. Vert. 50.1/10.6 cm/sec. Right Extracranial There is intimal thickening but no significant atherosclerotic plaque noted in the right common carotid artery. There is heterogeneous, irregular atherosclerotic plaque noted in the right internal carotid artery. There is heterogeneous, irregular atherosclerotic plaque noted in the right external carotid artery. Antegrade flow is noted in the right vertebral artery. Left Extracranial There is intimal thickening but no significant atherosclerotic plaque noted in the left common carotid artery. There is heterogeneous, irregular atherosclerotic plaque noted in the left internal carotid artery. There is heterogeneous, irregular atherosclerotic plaque noted in the left external carotid artery. Antegrade flow is noted in the left vertebral artery. Procedure Carotid Duplex [id number]. This is a Carotid Duplex examination using B-mode, color flow and specral Doppler. The exam was diagnostic. Exam performed in department. VL/Carotid Duplex Ultrasound Interpretation Summary Irregular calcific plaque with some shadowing at the proximal right internal ca rotid artery with less than 50% stenosis Less than 50% stenosis right external carotid artery Irregular calcific plaque with shadowing at the proximal left internal carotid artery with less than 50% stenosis Less than 50% stenosis left external carotid artery Patent and antegrade vertebral arteries bilaterally Ordering Physician: Anastasiia Rubio Referring Physician: Rashad Peñaloza Performed By: Bret Fairbanks RVT
== END | disposition home or self-care (01) ==
LOC: CVS 14:13
PROVIDERS: PCP Family Medicine; Visit Provider Nurse Practitioner Gerontology
DX: R42 Dizziness and giddiness (principal)
CPT/HCPCS: 93880

== ENCOUNTER → 2022-10-16 | Outpatient (CLI) | payer MEDICARE, SELFPAY ==
[2022-10-16 18:06] LABS: Anion Gap 6 (5-15); BUN 20 mg/dL (7-18); BUN/Creat Ratio 24.5 RATIO (10-20); Calcium,Total 9.1 mg/dL (8.5-10.1); Chloride 95 mmol/L (98-107); Creatinine, Serum 0.82 mg/dL (0.55-1.02); EST Glomerular Filtration Rate 71 mL/min (>60); Est Glom Filt Rate - Afr Amer 86 mL/min (>60); Glucose 98 mg/dL (74-106); Potassium 3.5 mmol/L (3.5-5.1); Sodium Level 134 mmol/L (136-145)
== END | disposition home or self-care (01) ==
LOC: LAB 16:25
PROVIDERS: PCP Family Medicine; Visit Provider Nurse Practitioner Gerontology
DX: R06.02 Shortness of breath (principal)
CPT/HCPCS: 36415; 80048

== ENCOUNTER → 2023-04-27 | Outpatient (CLI) | payer MEDICARE, SELFPAY ==
[2023-04-27 11:22] LABS: Hematocrit 34.2 % (37-47); Hemoglobin 11.2 g/dL (12.0-15.0); Mean Corp Hgb Conc 32.7 g/dL (32-36); Mean Corpuscular Hgb 29.3 pg (27.0-32.0); Mean Corpuscular Volume 89.5 fL (81-99); Mean Platelet Vol. 8.5 fl (6.2-12.0); Platelet Count 273 K/mm3 (150-450); RBC Distribution Width CV 13.9 % (11.6-14.6); RBC Distribution Width SD 45.3 fl (35.1-43.9); Red Blood Count 3.82 M/mm3 (4.2-5.4); White Blood Count 6.7 K/mm3 (4.4-11.0)
[2023-04-27 12:01] LABS: International Normalized Ratio 1.9
== END | disposition home or self-care (01) ==
LOC: LAB 10:49
PROVIDERS: PCP Family Medicine; Referring Provider Nurse Practitioner Family; Visit Provider Nurse Practitioner Family
DX: I48.11 Longstanding persistent atrial fibrillation (principal); R23.3 Spontaneous ecchymoses; Z79.01 Long term (current) use of anticoagulants
CPT/HCPCS: 36415; 85027; 85610

== ENCOUNTER → 2023-05-25 | Outpatient (CLI) | payer MEDICARE, SELFPAY ==
--- NOTE | 2023-05-25 15:18 | RAD_ITS ---
STUDY: X-RAY CHEST REASON FOR EXAM: Female, 82 years old. evaluate recenting injury and device placement TECHNIQUE: PA and lateral views of the chest. COMPARISON: 09/27/2022 FINDINGS: Left subclavian pacemaker which is unchanged. The lungs are clear and expanded. There is no demonstrated pleural abnormality. There is moderate cardiac enlargement. Normal mediastinum and luis. Normal visualized pulmonary arteries. Normal visualized aortic arch and descending thoracic aorta. Normal visualized thoracic spine. There is degenerative osteoarthritis of the bilateral shoulders. There is no demonstrated abnormality of the visualized soft tissue structures of the upper abdomen. RAD/Chest PA and Lateral IMPRESSION: No active disease. Cardiomegaly. Electronically Signed: Darius Perez MD at 23:16 EDT ,
[2023-05-25 15:36] LABS: Absolute Lymphocyte Count 2.14 X10^3/uL (0.83-4.51); Absolute Neutrophil Count 4.9 X10^3/uL (2.0-7.7); Basophil# 0.04 X10^3/uL; Basophil% 0.5 % (0-1); Eosinophil# 0.15 X10^3/uL; Eosinophils% 1.9 % (0-5); Hematocrit 35.5 % (37-47); Hemoglobin 11.9 g/dL (12.0-15.0); Lymphocyte # 2.14 X10^3/ul (0.83-4.51); Lymphocyte % 27.1 % (19-41); Mean Corp Hgb Conc 33.5 g/dL (32-36); Mean Corpuscular Hgb 29.9 pg (27.0-32.0); Mean Corpuscular Volume 89.2 fL (81-99); Mean Platelet Vol. 8.5 fl (6.2-12.0); Monocyte# 0.65 X10^3/uL; Monocyte% 8.2 % (0-10); NRBC Flagged by Analyzer 0 % (0-5); Neutrophil # 4.91 X10^3/uL (2.7-7.7); Neutrophil % 62.2 % (47-70); Platelet Count 297 K/mm3 (150-450); RBC Distribution Width CV 13.9 % (11.6-14.6); RBC Distribution Width SD 45.3 fl (35.1-43.9); Red Blood Count 3.98 M/mm3 (4.2-5.4); White Blood Count 7.9 K/mm3 (4.4-11.0)
== END | disposition home or self-care (01) ==
PROVIDERS: PCP Family Medicine; Referring Provider Nurse Practitioner Family; Visit Provider Nurse Practitioner Family
DX: R23.3 Spontaneous ecchymoses (principal); S49.90XA Unspecified injury of shoulder and upper arm, unspecified arm, initial encounter
CPT/HCPCS: 36415; 71046; 85025

== ENCOUNTER → 2023-07-04 | Outpatient (CLI) | payer MEDICARE, SELFPAY ==
--- NOTE | 2023-07-04 15:52 | RAD_ITS ---
INDICATION: Shortness of breath, cough EXAMINATION/TECHNIQUE: X-RAY - XR Chest 2 Views COMPARISON: Prior study dated: 05/25/2023 FINDINGS: LINES/DEVICES: Left chest wall pacer is unchanged. LUNGS: The lungs are well expanded. Central vascular prominence without overt edema. No consolidation or effusion. No pneumothorax. MEDIASTINUM AND CARDIOVASCULAR STRUCTURES: Cardiac silhouette remains prominent, unchanged. Central airways and mediastinal contour are unremarkable. BONES AND SOFT TISSUES: Degenerative changes of both shoulders. Evidence of chronic rotator cuff disease. RAD/Chest PA and Lateral IMPRESSION: No consolidation. Central vascular prominence without overt edema. Electronically Signed: Adán Montes MD at 1:30 EDT ,
[2023-07-04 17:01] LABS: Hematocrit 35.5 % (37-47); Hemoglobin 11.4 g/dL (12.0-15.0); Mean Corp Hgb Conc 32.1 g/dL (32-36); Mean Corpuscular Volume 90.3 fL (81-99); Mean Platelet Vol. 8.7 fl (6.2-12.0); Platelet Count 321 K/mm3 (150-450); RBC Distribution Width CV 13.8 % (11.6-14.6); Red Blood Count 3.93 M/mm3 (4.2-5.4); White Blood Count 8.1 K/mm3 (4.4-11.0)
[2023-07-04 17:26] LABS: Anion Gap 7 (5-15); BUN 21 mg/dL (7-18); BUN/Creat Ratio 17.6 RATIO (10-20); Calcium,Total 9.3 mg/dL (8.5-10.1); Chloride 90 mmol/L (98-107); Creatinine, Serum 1.19 mg/dL (0.55-1.02); EST Glomerular Filtration Rate 46 mL/min (>60); Est Glom Filt Rate - Afr Amer 56 mL/min (>60); Glucose 135 mg/dL (74-106); Potassium 4.1 mmol/L (3.5-5.1); Sodium Level 126 mmol/L (136-145)
[2023-07-04 17:27] LABS: BNP,B-Type NATRIURETIC PEPTIDE 236.6 pg/mL (0-100)
== END | disposition home or self-care (01) ==
LOC: LAB 15:38
PROVIDERS: PCP Family Medicine; Referring Provider Nurse Practitioner Family; Visit Provider Nurse Practitioner Family
DX: R06.02 Shortness of breath (principal); I50.32 Chronic diastolic (congestive) heart failure; R05.8 Other specified cough
CPT/HCPCS: 36415; 71046; 80048; 83880; 85027

== ENCOUNTER → 2023-07-18 | Outpatient (CLI) | payer MEDICARE, SELFPAY ==
--- NOTE | 2023-07-18 14:04 | ECHOD_ITS ---
Reason For Study: SHORTNESS OF BREATH Procedure This was a 2D Doppler, Color Flow transthoracic echocardiogram. Exam performed in department. Left Ventricle Normal LV size. The estimated ejection fraction is 70 %. Unable to assess diastolic dysfunction. No regional wall motion abnormalities noted. Right Ventricle Normal RV size. ICD or pacer leads identified within the right ventricle. Normal systolic function. Atria The left atrium is severely enlarged. Normal right atrium. ICD or pacer leads identified within the right atrium. No doppler evidence for ASD. Mitral Valve There is no mitral valve stenosis. Mild (1+) mitral valve insufficiency. Tricuspid Valve There is no tricuspid stenosis. Mild tricuspid valve insufficiency. Pulmonary artery systolic pressure is 50-55 mmHg. Aortic Valve There is no aortic stenosis. Mild (1+) aortic valve insufficiency. Pulmonic Valve There is no pulmonic valvular stenosis. Trivial pulmonic valve insufficiency. Great Vessels Normal aortic root. Pericardium/Pleural No pericardial effusion. MMode/2D Measurements & Calculations LVIDd: 4.0 cm IVSd: 1.1 cm Ao root diam: 2.9 cm LVIDs: 2.7 cm LVPWd: 1.2 cm RVDd: 3.5 cm FS: 31.9 % LAV(MOD-bp): 116.7 ml LVAd ap2: 28.6 cm2 SV(MOD-sp2): 58.0 ml LAV(MOD-bp) Indexed: 72.6 ml/m2 LVLd ap2: 7.1 cm LAV(MOD-sp2): 113.4 ml EDV(MOD-sp2): 90.3 ml LAV(MOD-sp4): 116.9 ml EDV(sp2-el): 97.5 ml LVAs ap2: 15.8 cm2 LVLs ap2: 6.2 cm ESV(MOD-sp2): 32.2 ml ESV(sp2-el): 33.8 ml EF(MOD-sp2): 64.3 % LA A4 area: 33.8 cm2 LA dimension(2D): 5.0 cm RA A4 area: 23.3 cm2 Time Measurements MV dec time: 0.16 sec Doppler Measurements & Calculations MV E max rojelio: 179.7 cm/sec Lat Peak E' Rojelio: 7.4 cm/sec Med Peak E' Rojelio: 7.7 cm/sec MV A max rojelio: 22.8 cm/sec E/E' lat: 24.1 E/E' med: 23.3 MV E/A: 7.9 Ao V2 max: 182.3 cm/sec AI max rojelio: 466.0 cm/sec LV V1 max: 140.6 cm/sec Ao max P.3 mmHg AI max P.8 mmHg LV V1 max P.9 mmHg AI dec slope: 256.9 cm/sec2 AI P1/2t: 531.2 msec PA V2 max: 90.2 cm/sec TR max rojelio: 341.5 cm/sec TR max P.6 mmHg ECHO/Echo Complete Interpretation Summary The estimated ejection fraction is 70 %. Unable to assess diastolic dysfunction. The left atrium is severely enlarged. Mild (1+) mitral valve insufficiency. Mild (1+) aortic valve insufficiency. Ordering Physician: Terence Donato Referring Physician: ZOHRA SANTOS Performed By: Michelle Chvaira RDCS
== END | disposition home or self-care (01) ==
LOC: CVS 14:02
PROVIDERS: PCP Family Medicine; Referring Provider Nurse Practitioner Family; Visit Provider Nurse Practitioner Family
DX: R06.02 Shortness of breath (principal); I50.32 Chronic diastolic (congestive) heart failure
CPT/HCPCS: 93306

== ENCOUNTER 2023-08-11 16:52 | Emergency (ER) | payer MEDICARE, SELFPAY ==
[2023-08-11 16:56] VITALS: BP 127/112; PULSE 74; RESP 18; TEMP 36.5; O2SAT 91
[2023-08-11 17:12] VITALS: BMI 25.2
--- NOTE | 2023-08-11 17:28 | RAD_ITS ---
STUDY: X-RAY - PELVIS REASON FOR EXAM: Female, 83 years old. pelvic pain TECHNIQUE: One view of the pelvis was obtained. COMPARISON: None. FINDINGS: There is a non-specific bowel gas pattern. Normal visualized soft tissue structures. Normal bilateral iliac wings, sacroiliac joints and visualized sacrum. Normal visualized bilateral superior and inferior pubic rami. Normal pubic symphysis. Normal ischial tuberosities. Normal visualized right femoral head. Normal right acetabulum. Normal right hip joint. Normal visualized left femoral head. Normal left acetabulum. Normal left hip joint. RAD/Pelvis 1 or 2 Views IMPRESSION: Normal x-ray examination of the pelvis. Electronically Signed: Darius Perez MD at 18:19 EDT ,
--- NOTE | 2023-08-11 17:39 | EX.ED.GENINJ ---
HPI <MELBA Palomares - Last Filed: 08/11/23 21:00> History of Present Illness Chief Complaint: Fall Narrative Narrative: Patient presenting today due to mechanical fall that occurred this afternoon. She reports that she was bent over trying to pick something up off the floor when she fell forward onto her knees. She did hit her upper lip on her left hand but denies hitting her head on the ground. She reports pain and a laceration to her right knee, bilateral hip pain, and an abrasion to her left ring finger. She is on warfarin and last had her INR level checked on which was 3.1. She denies any headache, neck pain, nausea, vomiting. There was no loss of consciousness. Tetanus is up-to-date. She is able to ambulate. 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 Longstanding persistent atrial fibrillation Nonrheumatic mitral valve regurgitation Osteoarthrosis Pericardial effusion Pulmonary hypertension Tear of biceps muscle Home Medications cetirizine 10 mg capsule (Zyrtec) 10 mg PO DAILY PRN 06/08/20 [History Last Taken Unknown] calcium carb,cit ER 600 mg-vit D3 12.5 mcg (500 unit) tablet,ext.rel (Citracal-D3 Slow Release) 1 tab PO BID 06/03/21 [History Last Taken Unknown] docusate sodium 100 mg capsule (Stool Softener) 100 mg PO BID 06/03/21 [History Last Taken Unknown] albuterol sulfate 90 mcg/actuation aerosol inhaler 2 puff inhalation Q6H PRN 03/22/22 [History Last Taken Unknown] warfarin 1 mg tablet 1 mg PO .COMPLEX 03/22/22 [History Last Taken Unknown] warfarin 5 mg tablet 5 mg PO .COMPLEX 03/22/22 [History Last Taken Unknown] calcitriol 0.25 mcg capsule 0.25 mcg PO DAILY 06/05/22 [History Last Taken Unknown] Lactobacillus rhamnosus GG 5 billion cell chewable tablet ([employer] Probiotics) 1 tab PO DAILY PRN 02/20/23 [History Last Taken Unknown] carvedilol 6.25 mg tablet 6.25 mg PO BID #180 tabs 02/20/23 [Rx Last Taken Unknown] hydrocodone-acetaminophen 5-325mg 5mg-325mg 1 tab PO 4X/DAY PRN PRN Pain 02/20/23 [History Last Taken Unknown] hdqdlhqo-ktlp-rolw 8 mg-folic 400 mcg-K 50 mcg-lutein 300 mcg tablet 1 tab PO DAILY 02/20/23 [History Last Taken Unknown] gabapentin 100 mg capsule 200 mg PO TID for neuropathy 07/04/23 [History Last Taken Unknown] levomefolate Ca 3 mg-B6 35 mg-meB12 2 mg-algal oil 90.314 mg capsule (Metanx (algal oil)) 1 cap PO DAILY from [facility] 07/04/23 [History Last Taken Unknown] spironolactone 50 mg tablet 50 mg PO DAILY OK to take with Furosemide, dose increased today #90 tabs 07/04/23 [Rx Last Taken Unknown] amlodipine 5 mg tablet 5 mg PO BID #180 tabs 07/05/23 [Rx Last Taken Unknown] dapagliflozin propanediol 10 mg tablet (Farxiga) 10 mg PO DAILY #90 tabs 07/05/23 [Rx Last Taken Unknown] furosemide 40 mg tablet 40 mg PO DAILY edema, shortness of breath #90 tabs 07/05/23 [Rx Last Taken Unknown] Allergy/AdvReac Type Severity Reaction Status Date / Time Iodinated Contrast Media Allergy Rash Verified 08/11/23 16:55 [Iodinated Contrast- Oral and IV Dye] iodine Allergy Rash Verified 08/11/23 16:55 Penicillins [PCN] Allergy Rash Verified 08/11/23 16:55 ciprofloxacin [From Cipro] AdvReac Intermediate dizziness Verified 08/11/23 16:55 clindamycin AdvReac Intermediate nausea Verified 08/11/23 16:55 levofloxacin [From Levaquin] AdvReac Intermediate abdominal Verified 08/11/23 16:55 pain, nausea simvastatin AdvReac Intermediate Myalgias Verified 08/11/23 16:55 Family History Father , Age 82 CAD (coronary artery disease) Myocardial infarction CVA (cerebral vascular accident) Hypertension Mother , Age 94 Hypertension CVA (cerebral vascular accident) Sister Cancer Brother , Age 13 months from congenital heart defect Congenital heart defect Surgical History Cardiac pacemaker in situ History of appendectomy History of cardioversion (07/12/05) History of hysterectomy (1990) History of knee replacement (05/2018) History of left heart catheterization (09/09/03) History of radiofrequency ablation procedure for cardiac arrhythmia History of tilt table evaluation (06/02/04) Hx of atrioventricular node ablation Social History Smoking Status: Never smoker alcohol intake: never substance use type: does not use caffeine: No ROS <MELBA Palomares - Last Filed: 08/11/23 21:00> ROS ED Constitutional Constitutional ED: Denies chills or fever(s) Cardiovascular Cardiovascular: Denies chest pain Respiratory/Chest Respiratory/Chest: Denies cough or dyspnea Gastrointestinal Gastrointestinal: Denies abdominal pain, nausea or vomiting Musculoskeletal Musculoskeletal: Reports arthralgias; Denies myalgias Integumentary Reports laceration Neurologic Neurologic: Denies headache(s), paresthesias or weakness Hematologic/Lymphatic Hematologic/Lymphatic: Reports easy bleeding EXAM <MELBA Palomares - Last Filed: 08/11/23 21:00> Physical Exam Const Vital Signs: 08/11/23 16:56 08/11/23 17:12 08/11/23 20:02 Temperature 97.7 F L Temperature Source Temporal Pulse Rate 74 Respiratory Rate 18 18 Respiratory Effort Normal Respiratory Depth Normal Respiratory Pattern Normal Blood Pressure 127/112 H Blood Pressure Mean 117 Pulse Ox 91 Oxygen Delivery Method Room Air Room Air Positive well nourished, well developed and no apparent distress General Appearance ED: well developed HEENT Reports normocephalic and head/scalp atraumatic Mouth ED: Yes moist mucous membranes normal Eyes PERRL and EOMs intact bilaterally Neck full ROM and supple Chest Wall inspection of chest normal Resp normal respiratory effort and clear to auscultation bilaterally Cardio regular rate and regular rhythm GI soft to palpation, non-tender, non-distended and no masses Back/Spine normal ROM and normal to inspection Extremity normal to inspection and full ROM Extremity Narrative: Small abrasion over the MCP joints on the dorsal aspect of the left fourth finger, gaping laceration to the right knee that is about 15 cm in length and full-thickness. Extensor mechanism intact in the right knee. pain to palpation to the bilateral hips with negative logroll bilaterally, no length deformity, patient is able to bear weight onto her legs. No ecchymosis to the hips bilaterally. Neuro oriented x3, CN's II-XII intact bilaterally, moves all extremities, no focal motor deficits and no sensory deficits noted Sensorium / Orientation: awake and alert Psych mental status grossly normal and thought process normal <Dr. Goran Beatty MD - Last Filed: 08/11/23 22:04> Physical Exam Const Vital Signs: 08/11/23 16:56 08/11/23 17:12 08/11/23 20:02 Temperature 97.7 F L Temperature Source Temporal Pulse Rate 74 Respiratory Rate 18 18 Respiratory Effort Normal Respiratory Depth Normal Respiratory Pattern Normal Blood Pressure 127/112 H Blood Pressure Mean 117 Pulse Ox 91 Oxygen Delivery Method Room Air Room Air PROC <MELBA Palomares - Last Filed: 08/11/23 21:00> Procedures Lacerations Laceration: Length: 15 cm Depth: Sub Q Shape: Linear Prep: Chlorhexadine Laceration repair: Irrigated, Lidocaine with epi and Wound explored Irrigated (ml): 500 Number of Sutures/Guille: 16 Suture Information: Ethilon (4-0), Simple, Horizontal and Mattress MDM <MELBA Palomares - Last Filed: 08/11/23 21:00> [facility] MDM Narrative Medical decision making narrative: Patient presenting today due to a mechanical fall that occurred this evening. She is well-appearing and in no acute distress. 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 She had her right knee on the ground causing a laceration, she also reports having bilateral hip pain but did not think that she hit her hips on anything. She was able to ambulate in here without difficulty so I do have low suspicion for fracture, however pelvis x-ray will be obtained to rule out fracture and is negative. Knee x-ray hand does show the laceration without any fracture or dislocation, impression suspects that it could involve the patellar tendon, however patient does have intact extension and flexion to her right knee. Laceration was copiously irrigated with normal saline and cleaned with chlorhexidine. It was anesthetized with lidocaine and sutures were placed. Patient was then bandaged and put in a knee immobilizer. She is to have stitches removed in 7 to 10 days and has been given signs of infection to look out for and reasons to return. She was given a [place] here for pain. She will be discharged home in stable condition and is comfortable with plan. She can take Tylenol for her pain as needed. Radiography X-Ray: Read by ED Physician and Read by Radiologist Diagnostic Testing: Clinical Impression(s) from Imaging Studies Pelvis X-Ray 08/11/23 17:28 IMPRESSION: Normal x-ray examination of the pelvis. Electronically Signed: Darius Perez MD at 18:19 EDT , Knee X-Ray 08/11/23 17:50 IMPRESSION: 1. Suspect deep laceration of the anterior knee possibly involving the patellar tendon just inferior to the patella. 2. No acute fracture or dislocation. 3. Status post knee arthroplasty which is intact. Electronically Signed: Darius Perez MD at 18:10 EDT , <Dr. Goran Beatty MD - Last Filed: 08/11/23 22:04> MDM Radiography Diagnostic Testing: Clinical Impression(s) from Imaging Studies Pelvis X-Ray 08/11/23 17:28 IMPRESSION: Normal x-ray examination of the pelvis. Electronically Signed: Darius Perez MD at 18:19 EDT , Knee X-Ray 08/11/23 17:50 IMPRESSION: 1. Suspect deep laceration of the anterior knee possibly involving the patellar tendon just inferior to the patella. 2. No acute fracture or dislocation. 3. Status post knee arthroplasty which is intact. Electronically Signed: Darius Perez MD at 18:10 EDT , Treatment and Re-Evaluation Narrative: I have personally performed a face to face assessment of the patient and have reviewed the CINTHIA Note. I performed a substantive portion of the visit including all aspects of the following. 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 She landed on her right knee mostly. She has a little bit of discomfort in the right knee. She has some soreness in the hips. No back pain. But she has been up walking around. She did get a bruise on her lip but states she did not hit her head. She states this was from the ring of her left hand that hit her face. She is on Coumadin. But her INR was just checked about 2 days ago. Exam: Patient is awake alert and appropriate. There is a tiny area of hematoma about 3 mm round on the left lower lip but no overall swelling. No other sign of any trauma on the head or face. There is slight abrasion near the left hand and a little bit of blood near the ring on that hand. But no tenderness or pain. No pain with motion of the hips. Laceration rather large on the right anterior knee. Medical Decision Making: Patient will have imaging of her knees and hip. We will anesthetize and suture this area over her knee. My independent interpretation of the three-view x-ray of the right knee shows no acute fracture. She has had prior knee replacement. Final reading is similar. My independent interpretation the AP pelvis single view is negative for acute process. There is some arthritic changes. Final reading is similar. Patient will be placed in a knee immobilizer. The reason for this is not so much the knee discomfort or injury but its risk of the laceration. This is a transverse 15 cm laceration that is almost a skin tear. It is deep enough that suturing is appropriate but her thin skin would not hold back under tension if she accidentally bends the knee a lot. Because she has an artificial knee I do not think this knee immobilizer will promote stiffness. But I think she has a high chance of opening up this laceration if she accidentally bends that leg to any significant degree. Discharge Plan Triage Chief Complaint: Fall ED Midlevel Provider: Chanelle Adams ED Provider: Goran Beatty Dx/Rx/DC Orders Clinical Impression: Hip strain, Laceration, Abrasion of finger, Fall, Contusion of knee, right Instructions: ED Hip Strain, ED Laceration: All Closures Prescriptions: No Action Zyrtec 10 mg capsule 10 mg PO DAILY PRN warfarin 1 mg tablet 1 mg PO .COMPLEX Rx Instructions: 1 mg PO Daily or as directed; Current dose 9 mg on Mondays and Fridays, 6 mg all other days. Managed by [facility] calcium carb and citrate-vitD3 [Citracal-D3 Slow Release] 600 mg-12.5 mcg (500 unit) tablet extended release 1 tab PO BID docusate sodium [Stool Softener] 100 mg capsule 100 mg PO BID calcitriol 0.25 mcg capsule 0.25 mcg PO DAILY warfarin 5 mg tablet 5 mg PO .COMPLEX Rx Instructions: 5 mg PO daily or as directed; Current dose 9 mg on Mondays and Fridays, 6 mg all other days. Managed by [facility] albuterol sulfate 90 mcg/actuation HFA aerosol inhaler 2 puff inhalation Q6H PRN Patient Comments: inhale 2 puffs by mouth and INTO THE LUNGS every 6 hours if needed for wheezing [employer] Probiotics 5 billion cell tablet,chewable 1 tab PO DAILY PRN carvedilol 6.25 mg tablet 6.25 mg PO BID Qty: 180 3RF Rx Instructions: must administer with a meal/food amlodipine 5 mg tablet 5 mg PO BID Qty: 180 3RF furosemide 40 mg tablet 40 mg PO DAILY Qty: 90 3RF Farxiga 10 mg tablet 10 mg PO DAILY Qty: 90 3RF hydrocodone-acetaminophen 5-325 mg tablet 1 tab PO 4X/DAY PRN PRN (Reason: Pain) hfddzjtm-hdr-dtdu-FA-vit K-lut 8 mg iron-400 mcg-300 mcg tablet 1 tab PO DAILY spironolactone 50 mg tablet 50 mg PO DAILY Qty: 90 3RF gabapentin 100 mg capsule 200 mg PO TID [id number]-algal oil [Metanx (algal oil)] 3 mg-35 mg-2 mg -90.314 mg capsule 1 cap PO DAILY Primary Care Provider: Rashad Peñaloza Referrals: Rashad Peñaloza MD [Primary Care Provider] - 10 Day for suture removal Activity Restrictions/Additional Instructions: Please follow-up with your PCP to have stitches removed in 7 to 10 days. Return for any signs of infection, keep area clean and bandaged. Disposition Disposition: Home, Self Care Discharge Date/Time: 08/11/23 20:49
--- NOTE | 2023-08-11 17:50 | RAD_ITS ---
STUDY: X-RAY - RIGHT KNEE REASON FOR EXAM: Female, 83 years old. fall TECHNIQUE: 3 view(s) of the knee. COMPARISON: None. FINDINGS: Normal visualized distal femur. Normal visualized proximal tibia and fibula. Normal proximal tibiofibular articulation. Status post total knee arthroplasty. The prosthesis appears located. No ostial lysis to suggest loosening.. Radiolucency of the anterior soft tissues of the knee just inferior to the patella worrisome for a deep laceration possibly involving the patellar tendon. RAD/Knee 3 Views IMPRESSION: 1. Suspect deep laceration of the anterior knee possibly involving the patellar tendon just inferior to the patella. 2. No acute fracture or dislocation. 3. Status post knee arthroplasty which is intact. Electronically Signed: Darius Perez MD at 18:10 EDT ,
[2023-08-11 20:02] VITALS: RESP 18
[2023-08-11] MEDS: HYDROcodone Bitartrate/Apap 5/325 Tablet PO (20:43)
[2023-08-11] MEDS: Lidocaine 1% /Epi 1:100 (20ml) 20 ML Vial 10 ML INFILT (20:43)
== END 2023-08-11 20:49 | disposition home or self-care (01) ==
PROVIDERS: Emergency Provider Emergency Medicine; PCP Family Medicine; Visit Provider Emergency Medicine
DX: S81.011A Laceration without foreign body, right knee, initial encounter (principal); I50.32 Chronic diastolic (congestive) heart failure; S60.512A Abrasion of left hand, initial encounter; S76.011A Strain of muscle, fascia and tendon of right hip, initial encounter; S76.012A Strain of muscle, fascia and tendon of left hip, initial encounter; I25.10 Atherosclerotic heart disease of native coronary artery without angina pectoris; Z95.0 Presence of cardiac pacemaker; W19.XXXA Unspecified fall, initial encounter
CPT/HCPCS: 12005; 72170; 73562; 99283

== ENCOUNTER 2023-08-15 13:00 | Outpatient (RCR) | payer MEDICARE, SELFPAY ==
[2023-08-01 15:29] VITALS: BP 173/68; PULSE 82; RESP 18; TEMP 36; BMI 23.8
--- NOTE | 2023-08-01 16:42 | PCM.WC.HP ---
History of Present Illness Date of Service: 08/01/23 Chief Complaint: Right leg ulceration History of Wound: Right leg ulceration Progress of Wound: Mrs. Collazo is a 83-year-old female presenting to the wound care center today for second opinion to full-thickness ulceration to the right leg proximally. Patient was seen at [facility] [place] wound care center for a distal ulceration that is now healed. The patient and her were frustrated with the wound care center at [facility] [place] and are looking for a second opinion and treatment secondary to delayed healing of the right leg. Patient states that the new proximal ulceration is fairly new and has no real treatment at this time. She denies any trauma. She does wear compression wraps. She denies constitutional symptoms. No other pedal complaints at this time. 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 Longstanding persistent atrial fibrillation Nonrheumatic mitral valve regurgitation Osteoarthrosis Pericardial effusion Pulmonary hypertension Tear of biceps muscle Home Medications cetirizine 10 mg capsule (Zyrtec) 10 mg PO DAILY PRN 06/08/20 [History Last Taken Unknown] calcium carb,cit ER 600 mg-vit D3 12.5 mcg (500 unit) tablet,ext.rel (Citracal-D3 Slow Release) 1 tab PO BID 06/03/21 [History Last Taken Unknown] docusate sodium 100 mg capsule (Stool Softener) 100 mg PO BID 06/03/21 [History Last Taken Unknown] albuterol sulfate 90 mcg/actuation aerosol inhaler 2 puff inhalation Q6H PRN 03/22/22 [History Last Taken Unknown] warfarin 1 mg tablet 1 mg PO .COMPLEX 03/22/22 [History Last Taken Unknown] warfarin 5 mg tablet 5 mg PO .COMPLEX 03/22/22 [History Last Taken Unknown] calcitriol 0.25 mcg capsule 0.25 mcg PO DAILY 06/05/22 [History Last Taken Unknown] Lactobacillus rhamnosus GG 5 billion cell chewable tablet (Culturelle Kids Probiotics) 1 tab PO DAILY PRN 02/20/23 [History Last Taken Unknown] carvedilol 6.25 mg tablet 6.25 mg PO BID #180 tabs 02/20/23 [Rx Last Taken Unknown] hydrocodone-acetaminophen 5-325mg 5mg-325mg 1 tab PO 4X/DAY PRN PRN Pain 02/20/23 [History Last Taken Unknown] jwweylyc-pmyz-eeiu 8 mg-folic 400 mcg-K 50 mcg-lutein 300 mcg tablet 1 tab PO DAILY 02/20/23 [History Last Taken Unknown] gabapentin 100 mg capsule 100 mg PO TID for neuropathy 07/04/23 [History Last Taken Unknown] levomefolate Ca 3 mg-B6 35 mg-meB12 2 mg-algal oil 90.314 mg capsule (Metanx (algal oil)) 1 cap PO DAILY from Wound Center 07/04/23 [History Last Taken Unknown] spironolactone 50 mg tablet 50 mg PO DAILY OK to take with Furosemide, dose increased today #90 tabs 07/04/23 [Rx Last Taken Unknown] amlodipine 5 mg tablet 5 mg PO BID #180 tabs 07/05/23 [Rx Last Taken Unknown] dapagliflozin propanediol 10 mg tablet (Farxiga) 10 mg PO DAILY #90 tabs 07/05/23 [Rx Last Taken Unknown] furosemide 40 mg tablet 40 mg PO DAILY edema, shortness of breath #90 tabs 07/05/23 [Rx Last Taken Unknown] Allergy/AdvReac Type Severity Reaction Status Date / Time Iodinated Contrast Media Allergy Rash Verified 07/05/23 14:20 [Iodinated Contrast- Oral and IV Dye] iodine Allergy Rash Verified 07/05/23 14:20 Penicillins [PCN] Allergy Rash Verified 07/05/23 14:20 ciprofloxacin [From Cipro] AdvReac Intermediate dizziness Verified 07/05/23 14:20 clindamycin AdvReac Intermediate nausea Verified 07/05/23 14:20 levofloxacin [From Levaquin] AdvReac Intermediate abdominal Verified 07/05/23 14:20 pain, nausea simvastatin AdvReac Intermediate Myalgias Verified 07/05/23 14:20 Family History Father , Age 82 CAD (coronary artery disease) Myocardial infarction CVA (cerebral vascular accident) Hypertension Mother , Age 94 Hypertension CVA (cerebral vascular accident) Sister Cancer Brother , Age 13 months from congenital heart defect Congenital heart defect Surgical History Cardiac pacemaker in situ History of appendectomy History of cardioversion (07/12/05) History of hysterectomy (1990) History of knee replacement (05/2018) History of left heart catheterization (09/09/03) History of radiofrequency ablation procedure for cardiac arrhythmia History of tilt table evaluation (06/02/04) Hx of atrioventricular node ablation Social History Smoking Status: Never smoker alcohol intake: never substance use type: does not use caffeine: No Vital Signs Vital Signs Vital Signs: 08/01/23 15:29 Temperature 96.8 F L Temperature Source Temporal Pulse Rate 82 Respiratory Rate 18 Blood Pressure 173/68 H Blood Pressure Mean 103 Blood Pressure Source Monitor Blood Pressure Position Semi-Fowlers Blood Pressure Location Left Arm Oxygen Delivery Method Room Air Weight Weight: 58.967 kg Body Mass Index (BMI) 23.8 Physical Exam Narrative Vascular: DP and PT pulses are palpable. CFT is brisk. Skin temperature gradient is warm to warm from proximal ankle to distal digits bilateral. Nonpitting edema appreciated bilateral lower extremity with hemosiderin deposits. Neurological: Light touch and epicritic station is intact. Dermatological: Evidence of healed ulceration to the distal aspect of the right leg. Evidence of full-thickness ulceration to the proximal right leg measuring 0.9 x 0.6 x 0.2 cm. Wound base is 100% granular nature with no sign of infection. No drainage. No probe to bone. No erythema or proximal streaking. Excisional debridement down to and including subcutaneous tissue of the full-thickness ulceration to the proximal aspect of the right leg with a number 5 mm dermal curette without incident. Predebridement measurements were 0.8 x 0.5 x 0.1 cm. Postdebridement measurements are 0.9 x 0.6 x 0.2 cm. Musculoskeletal: Muscle strength 5 and 5 in all quadrants bilateral. Mild palpatory tenderness appreciated full-thickness ulceration to the proximal aspect of the right leg. Evidence of severe crossing over toe to the second digit right foot. No pain with calf compression. Debridement Note Debridement Note Debridement Free Text: Excisional debridement down to and including subcutaneous tissue of the full-thickness ulceration to the proximal aspect of the right leg with a number 5 mm dermal curette without incident. Predebridement measurements were 0.8 x 0.5 x 0.1 cm. Postdebridement measurements are 0.9 x 0.6 x 0.2 cm. Post-Debridement Measurements and Additional Note: Post-Debridement Measurements/Treatment WC - Nurse 1 - General Ulcer Assessment Start: 08/01/23 15:27 Freq: Status: Active Protocol: PAULETTE.LOWEXT Activity Type Activity Date Activity User E-sign Co-sign Detail Recorded Client Recorded Date Recorded By Document 08/01/23 15:29 KW Desktop 08/01/23 15:45 KW 08/01/23 15:29 - Today's Visit Information Type of service Initial Visit Arrival Mode Ambulatory Accompanied by Patient Identification Verified (Name & Yes ) Height and Weight Height 5 ft 2 in Weight 58.967 kg Weight in Pounds 130.0 lbs Weight Measurement Method Estimated by Patient Body Mass Index (BMI) 23.8 BMI Classification Normal BSA - [place]alry 1.59 Vital Signs Temperature (97.8 F-99.1 F) 96.8 F L Temperature Source Temporal Pulse Rate (60-100) 82 Pulse Location Monitor Respiratory Rate (12-18) 18 Respiratory rate source Observation Oxygen Delivery Method Room Air Blood Pressure (90/60-120/80) 173/68 H Blood Pressure Mean 103 Source Monitor Position Semi-Fowlers Blood Pressure Location Left Arm History Since Last Visit- (Skip if this is Patient's initial visit) Left Footwear Regular Shoe Right Footwear Regular Shoe Pain Scale: 0-10 Numeric Is Patient Pain Free? No RLE -Intensity 5 -Alleviating Factors/Interventions Medication Lower Extremity Assessment/ Foot Assessment/ Toe Nail Assessment Right -Posterior Tibial Palpable Yes -Posterior Tibial Doppler Monophasic -Dorsalis Pedis Palpable Yes -Dorsalis Pedis Doppler Multiphasic -Hair Growth on Legs No -Hair Growth on Toes No -Temperature of Extremity Cool -Capillary Refill Less than 3 Seconds -Thick Yes -Discolored Yes Communication Assessment Preferred language Italian Able to Read Yes Able to Write Yes Communication Tools None Right Hearing Abillity Normal Left Hearing Abillity Normal Visual Assistive Devices Glasses Teaching Assessment Preferences Verbal,Written, Demonstration Barriers to Learning None Readiness To Learn Excellent Willingness to Engage in Self Management High Activies Readiness to Engage in Self Management High Activities Anxiety Level Calm Cooperation Cooperative Perception Coherent Interest in Health Problem Asks Questions Education Importance Acknowledges Need Does Patient Smoke tobacco or other No substances Is Patient Diabetic No Functional Assessment Recent Decline in Ability to Perform Denies Any Declines Culture/Roman Catholic/Client Application Support Engineer Cultural/Roman Catholic Needs that may affect No Treatment Plan Would you allow our hospital stripper black and white to No meet you for the purpose of spiritual/ emotional support? Client Application Support Engineer to contact place of adventism No WC - Nurse 1 - General Ulcer Measurement Start: 08/01/23 15:27 Freq: Status: Active Protocol: Activity Type Activity Date Activity User E-sign Co-sign Detail Recorded Client Recorded Date Recorded By Document 08/01/23 15:29 KW Desktop 08/01/23 15:45 KW 08/01/23 15:29 Wound Center Nurse 1 #1 RT LE -Current Size (cm) - Length 1.2 -Current Size (cm) - Width 0.8 -Current Size (cm) - Depth 0.1 -Total Square Cm 0.96 -Tunneling No -Circular Undermining No -Exudate Amt Small -Exudate Type Serosanguineous -Wound Margin Distinct, Outline Attached -Granulation Amt Small (1-33%) -Granulation Quality Red -Texture (Nhung-wound Skin Appearance) Assessed -Moisture (Nhung-wound Skin Appearance) Assessed -Color (Nhung-wound Skin Appearance) Assessed -Temperature (Nhung-wound Skin No Abnormality Appearance) (Pt Warm) -Ulcer Cleansing Soap and Water -Foul Odor after Cleansing No -Anesthetic Used 5% Lidocaine Gel Right Calf (cm) 34.4 Right Ankle (cm) 21.7 WC - Nurse 2 - General Ulcer CM Notes Start: 08/01/23 15:27 Freq: Status: Active Protocol: Activity Type Activity Date Activity User E-sign Co-sign Detail Recorded Client Recorded Date Recorded By Document 08/01/23 16:19 JF Laptop 08/01/23 16:22 JF 08/01/23 16:19 Wound Center Nurse 2 #1 RT LE -Time 16:19 -Correct Patient Yes -Correct Side, Site, Position Yes -Correct Procedure Yes -Procedure Performed Yes -Type of Procedure Debridement -Clinical Debridement Subcutaneous -Tissue Removed Subcutaneous -Post Debridement (cm) - Length 0.9 -Post Debridement (cm) - Width 0.6 -Post Debridement (cm) - Depth 0.1 -Total Square (Post) (cm) 0.54 -Area of Debridement (cm) - Length 0.9 -Area of Debridement (cm) - Width 0.6 -Total Square (Area) (cm) 0.54 -Tunneling No -Undermining/Tunneling No -Circular Undermining No -Wound/Ulcer Outcome Not Healed -Ulcer Cleansing Rinsed/ Irrigated with Saline -Foul Odor after Cleansing No -Bioengineered Tissue No -Bleeding Controlled with Pressure -Treatment Response Procedure Tolerated Well -Offloading No -Debridement - Subq, 1st 20sq cm Yes Pain Scale: 0-10 Numeric Is Patient Pain Free? Yes WC - Nurse 3 - General Ulcer D/C NN Start: 08/01/23 15:27 Freq: Status: Active Protocol: Activity Type Activity Date Activity User E-sign Co-sign Detail Recorded Client Recorded Date Recorded By Document 08/01/23 16:35 KW Desktop 08/01/23 16:36 KW 08/01/23 16:35 Wound Care Center Nurse 3 #1 RT LE -Ulcer Cleansing Rinsed/ Irrigated with Saline -Primary Dressing Applied Mepilex Border, Promogran [place] Matter -Mepilex Border 3 -Promogran [place] Matter 1 RLE -Tubular Bandage Double Layer -Size of Tubigrip Used Size D -Size D ($) 2 Pain Scale: 0-10 Numeric Is Patient Pain Free? Yes WC - Visit Discharge Discharge Condition Stable Ambulatory Status Ambulatory Transportation Private Auto Medication Reconcilliation completed & No provided to patient/care provider Clinical Summary of Care Provided Yes Assessment/Plan Assessment/Plan (1) Ulcer of right lower extremity with fat layer exposed: CODE(S): L97.912 - Non-pressure chronic ulcer of unspecified part of right 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 PLAN: Patient was examined and evaluated. All findings were discussed with the patient. All the patient's satisfaction. Excisional debridement down to and including subcutaneous tissue of the full-thickness ulceration to the proximal aspect of the right leg with a number 5 mm dermal curette without incident. Predebridement measurements were 0.8 x 0.5 x 0.1 cm. Postdebridement measurements are 0.9 x 0.6 x 0.2 cm. Ulceration was dressed with [place], Betadine paint and border foam. Patient is to change dressing daily. She is given the okay to shower and wash the ulceration and making sure to dry and then repeat dressing changes as instructed. Follow-up in 1 week. (2) Venous (peripheral) insufficiency: CODE(S): I87.2 - Venous insufficiency (chronic) (peripheral) (3) Pain in right leg: CODE(S): M79.604 - Pain in right leg (4) Hammer toe of right foot: CODE(S): M20.41 - Other hammer toe(s) (acquired), right foot PLAN: Patient's show evidence of severe crossing over toe to the second digit right foot. Due to the patient's age it would be my recommendation for the patient to undergo right second digit amputation versus reconstruction.
[2023-08-08 15:27] VITALS: BP 166/69; PULSE 64; RESP 16; TEMP 36.3; BMI 23.8
--- NOTE | 2023-08-08 17:26 | PN.PCM_ITS ---
History of Present Illness Date of Service: 08/08/23 Chief Complaint: Right leg ulceration History of Wound: Right leg ulceration Progress of Wound: Mrs. Collazo is a 83-year-old female presenting to the wound care center today for second opinion to full-thickness ulceration to the right leg proximally. Patient was seen at [facility] for a distal ulceration that is now healed. The patient and her were frustrated with the wound care center at [facility] and are looking for a second opinion and treatment secondary to delayed healing of the right leg. Patient states that the new proximal ulceration is fairly new and has no real treatment at this time. She denies any trauma. She does wear compression wraps. She denies constitutional symptoms. No other pedal complaints at this time. Subjective Subjective Mrs. Aguirre is an 83-year-old female presenting to clinic today for follow-up of full-thickness ulceration to left anterior leg. She has released her medical information from [facility]. We will continue to review. She has been compliant with the wrappings. She admits to redness to the leg. She denies trauma. Denies constitutional symptoms. No other pedal complaints at this time. Objective Data Objective Data Vital Signs: Vital Signs Temp Pulse Resp BP O2 Del Method 97.4 F L 64 16 166/69 H Room Air 08/08/23 15:27 08/08/23 15:27 08/08/23 15:27 08/08/23 15:27 08/08/23 15:27 Oxygen Delivery Method Room Air Weight: 58.967 kg Body Mass Index (BMI) 23.8 Physical Exam Narrative Vascular: DP and PT pulses are palpable. CFT is brisk. Skin temperature gradient is warm to warm from proximal ankle to distal digits bilateral. Nonpitting edema appreciated bilateral lower extremity with hemosiderin deposits. Neurological: Light touch and epicritic station is intact. Dermatological: Evidence of healed ulceration to the distal aspect of the right leg. Evidence of full-thickness ulceration to the proximal right leg measuring 0.9 x 0.8 x 0.1 cm. Wound base is 100% granular nature with no sign of infection. No drainage. No probe to bone. No erythema or proximal streaking. Excisional debridement down to and including subcutaneous tissue of the full- thickness ulceration to the proximal aspect of the right leg with a number 5 mm dermal curette without incident. Predebridement measurements were 0.8 x 0.7 x 0.1 cm. Postdebridement measurements are 0.9 x 0.8 x 0.1 cm. Musculoskeletal: Muscle strength 5 and 5 in all quadrants bilateral. Mild palpatory tenderness appreciated full-thickness ulceration to the proximal aspect of the right leg. Evidence of severe crossing over toe to the second digit right foot. No pain with calf compression. Debridement Note Debridement Note Debridement Free Text: Excisional debridement down to and including subcutaneous tissue of the full-thickness ulceration to the proximal aspect of the right leg with a number 5 mm dermal curette without incident. Predebridement measurements were 0.8 x 0.7 x 0.1 cm. Postdebridement measurements are 0.9 x 0.8 x 0.1 cm Post-Debridement Measurements and Additional Note: Post-Debridement Measurements/Treatment - Nurse 1 - General Ulcer Assessment Start: 08/01/23 15:27 Freq: Status: Active Protocol: JAVAN Activity Type Activity Date Activity User E-sign Co-sign Detail Recorded Client Recorded Date Recorded By Document 08/01/23 15:29 [facility] Desktop 08/01/23 15:45 [facility] Document 08/08/23 15:27 [facility] Desktop 08/08/23 15:38 BMF 08/01/23 08/08/23 15:29 15:27 - Today's Visit Information Type of service Initial Visit Follow-up Visit (Physician/PERSONAL CARE SERVICE PROVIDER ) Arrival Mode Ambulatory Ambulatory Transfer Assistance None Accompanied by Patient Identification Verified (Name & Yes Yes ) Patient Requires Transmission-Based No Precautions Height and Weight Height 5 ft 2 in Weight 58.967 kg Weight in Pounds 130.0 lbs Weight Measurement Method Estimated by Patient Body Mass Index (BMI) 23.8 23.8 BMI Classification Normal Normal BSA - Charly 1.59 Vital Signs Temperature (97.8 F-99.1 F) 96.8 F L 97.4 F L Temperature Source Temporal Temporal Pulse Rate (60-100) 82 64 Pulse Location Monitor Monitor Respiratory Rate (12-18) 18 16 Respiratory rate source Observation Observation Oxygen Delivery Method Room Air Room Air Blood Pressure (90/60-120/80) 173/68 H 166/69 H Blood Pressure Mean (mm Hg) 103 101 Source Monitor Monitor Position Semi-Fowlers Sitting Blood Pressure Location Left Arm Left Arm History Since Last Visit- (Skip if this is Patient's initial visit) Have you changed medications since your Yes last visit? Any new allergies or adverse reactions No Had a fall/change in ADL's that may No increase risk of falls Signs or symptoms of abuse and/or No neglect since last visit Have you been in the hospital since your No last visit? Left Footwear Regular Shoe Regular Shoe Right Footwear Regular Shoe Regular Shoe Pain Scale: 0-10 Numeric Is Patient Pain Free? No Yes RLE -Intensity 5 -Alleviating Factors/Interventions Medication Lower Extremity Assessment/ Foot Assessment/ Toe Nail Assessment Right -Posterior Tibial Palpable Yes -Posterior Tibial Doppler Monophasic -Dorsalis Pedis Palpable Yes -Dorsalis Pedis Doppler Multiphasic -Hair Growth on Legs No -Hair Growth on Toes No -Temperature of Extremity Cool -Capillary Refill Less than 3 Seconds -Thick Yes -Discolored Yes Communication Assessment Preferred language [place] Able to Read Yes Able to Write Yes Communication Tools None Right Hearing Abillity Normal Left Hearing Abillity Normal Visual Assistive Devices Glasses Teaching Assessment Preferences Verbal,Written, Demonstration Barriers to Learning None Readiness To Learn Excellent Willingness to Engage in Self Management High Activies Readiness to Engage in Self Management High Activities Anxiety Level Calm Cooperation Cooperative Perception Coherent Interest in Health Problem Asks Questions Education Importance Acknowledges Need Does Patient Smoke tobacco or other No substances Is Patient Diabetic No Functional Assessment Recent Decline in Ability to Perform Denies Any Declines 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 Vulcanizer Operator to contact place of jehovah's witness No WC - Nurse 1 - General Ulcer Measurement Start: 08/01/23 15:27 Freq: Status: Active Protocol: Activity Type Activity Date Activity User E-sign Co-sign Detail Recorded Client Recorded Date Recorded By Document 08/01/23 15:29 KW Desktop 08/01/23 15:45 KW Document 08/08/23 15:27 [facility] Desktop 08/08/23 15:38 BMF 08/01/23 08/08/23 15:29 15:27 Wound Center Nurse 1 #1 RT LE -Combined with other wound No -Current Size (cm) - Length 1.2 0.9 -Current Size (cm) - Width 0.8 0.8 -Current Size (cm) - Depth 0.1 0.3 -Total Square Cm 0.96 0.72 -Date of Last Picture (Recall this 08/08/23 field) -Photo Taken Yes -Epithelialization Small 1-33% -Tunneling No No -Undermining/Tunneling No -Circular Undermining No No -Exudate Amt Small Medium -Exudate Type Serosanguineous Serosanguineous -Wound Margin Distinct, Distinct, Outline Outline Attached Attached -Granulation Amt Small (1-33%) Large (67-100%) -Granulation Quality Red Red -Slough/Fibrin No -Necrosis Amt None Present (0 %) -Texture (Nhung-wound Skin Appearance) Assessed Assessed, Scarring -Moisture ([place]-wound Skin Appearance) Assessed Assessed,Dry/ Scaly -Color ([place]-wound Skin Appearance) Assessed Assessed -Temperature ([place]-wound Skin No Abnormality No Abnormality Appearance) (Pt Warm) (Pt Warm) -Tenderness on Palpation (Nhung-wound No Skin Appearance) -Ulcer Cleansing Soap and Water Soap and Water -Foul Odor after Cleansing No No -Anesthetic Used 5% Lidocaine 5% Lidocaine Gel Gel Lower Limb Edema Present Yes Right Calf (cm) 34.4 33.3 Right Ankle (cm) 21.7 21.5 WC - Nurse 2 - General Ulcer CM Notes Start: 08/01/23 15:27 Freq: Status: Active Protocol: Activity Type Activity Date Activity User E-sign Co-sign Detail Recorded Client Recorded Date Recorded By Document 08/01/23 16:19 Laptop 08/01/23 16:22 Document 08/08/23 16:23 Laptop 08/08/23 16:28 08/01/23 08/08/23 16:19 16:23 Wound Center Nurse 2 #1 RT LE -Time 16:19 16:24 -Correct Patient Yes Yes -Correct Side, Site, Position Yes Yes -Correct Procedure Yes Yes -Procedure Performed Yes Yes -Type of Procedure Debridement Debridement -Clinical Debridement Subcutaneous Subcutaneous -Tissue Removed Subcutaneous Subcutaneous -Post Debridement (cm) - Length 0.9 0.9 -Post Debridement (cm) - Width 0.6 0.8 -Post Debridement (cm) - Depth 0.1 0.1 -Total Square (Post) (cm) 0.54 0.72 -Area of Debridement (cm) - Length 0.9 0.9 -Area of Debridement (cm) - Width 0.6 0.8 -Total Square (Area) (cm) 0.54 0.72 -Tunneling No No -Undermining/Tunneling No No -Circular Undermining No No -Wound/Ulcer Outcome Not Healed Not Healed -Ulcer Cleansing Rinsed/ Rinsed/ Irrigated with Irrigated with Saline Saline -Foul Odor after Cleansing No No -Bioengineered Tissue No No -Bleeding Controlled with Pressure Pressure -Treatment Response Procedure Procedure Tolerated Well Tolerated Well -Offloading No No -Debridement - Subq, 1st 20sq cm Yes Yes Pain Scale: 0-10 Numeric Is Patient Pain Free? Yes Yes - Nurse 3 - General Ulcer D/C NN Start: 08/01/23 15:27 Freq: Status: Active Protocol: Activity Type Activity Date Activity User E-sign Co-sign Detail Recorded Client Recorded Date Recorded By Document 08/01/23 16:35 KW Desktop 08/01/23 16:36 KW Document 08/08/23 16:40 KW Desktop 08/08/23 16:41 KW 08/01/23 08/08/23 16:35 16:40 Wound Care Center Nurse 3 #1 RT LE -Ulcer Cleansing Rinsed/ Rinsed/ Irrigated with Irrigated with Saline Saline -Primary Dressing Applied Mepilex Border, Mepilex Border, Promogran Promogran [place] Matter [place] Matter -Mepilex Border 3 1 -Promogran [place] Matter 1 1 RLE -Tubular Bandage Double Layer Double Layer -Size of Tubigrip Used Size D Size D -Size D ($) 2 2 Pain Scale: 0-10 Numeric Is Patient Pain Free? Yes Yes - Visit Discharge Discharge Condition Stable Stable Ambulatory Status Ambulatory Ambulatory Transportation Private Auto Private Auto Medication Reconcilliation completed & No No provided to patient/care provider Clinical Summary of Care Provided Yes Yes Assessment/Plan Assessment/Plan (1) Ulcer of right lower extremity with fat layer exposed: CODE(S): L97.912 - Non-pressure chronic ulcer of unspecified part of right 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 PLAN: Patient was examined evaluated. All findings were discussed with the patient. All questions were answered to the patient satisfaction. Excisional debridement down to and including subcutaneous tissue of the full- thickness ulceration to the proximal aspect of the right leg with a number 5 mm dermal curette without incident. Predebridement measurements were 0.8 x 0.7 x 0.1 cm. Postdebridement measurements are 0.9 x 0.8 x 0.1 cm. Ulceration was dressed with [place], Betadine paint, dry sterile dressing and a Tubigrip. Follow-up 1 week (2) Venous (peripheral) insufficiency: CODE(S): I87.2 - Venous insufficiency (chronic) (peripheral) (3) Pain in right leg: CODE(S): M79.604 - Pain in right leg
[2023-08-15 13:22] VITALS: BP 128/53; PULSE 60; RESP 18; TEMP 36.2; BMI 23.8
--- NOTE | 2023-08-15 15:16 | PCM.WC.PN ---
History of Present Illness Date of Service: 08/15/23 Chief Complaint: Right leg ulceration History of Wound: Right leg ulceration Progress of Wound: Mrs. Collazo is a 83-year-old female presenting to the wound care center today for second opinion to full-thickness ulceration to the right leg proximally. Patient was seen at [place] wound care center for a distal ulceration that is now healed. The patient and her were frustrated with the wound care center at [place] and are looking for a second opinion and treatment secondary to delayed healing of the right leg. Patient states that the new proximal ulceration is fairly new and has no real treatment at this time. She denies any trauma. She does wear compression wraps. She denies constitutional symptoms. No other pedal complaints at this time. Subjective Subjective Mrs. Collazo is a 83-year-old female presenting to the wound care center today [facility] for full-thickness ulceration to the right leg proximally. Patient states that she fell while at home and was seen at the emergency room and stitched up due to a laceration to her left knee. She was unable to wear compression secondary to pain. Overall she has been doing her wound care dressing changes every other day with [place], moist saline and a Band-Aid. She states the wound is granular with no sign of infection. She denies constitutional symptoms. Other pedal complaints at this time. Objective Data Objective Data Vital Signs: Vital Signs Temp Pulse Resp BP O2 Del Method 97.2 F L 60 18 128/53 H Room Air 08/15/23 13:22 08/15/23 13:22 08/15/23 13:22 08/15/23 13:22 08/15/23 13:22 Oxygen Delivery Method Room Air Weight: 58.967 kg Body Mass Index (BMI) 23.8 Physical Exam Narrative Vascular: DP and PT pulses are palpable. CFT is brisk. Skin temperature gradient is warm to warm from proximal ankle to distal digits bilateral. Nonpitting edema appreciated bilateral lower extremity with hemosiderin deposits. Neurological: Light touch and epicritic station is intact. Dermatological: Evidence of healed ulceration to the distal aspect of the right leg. Evidence of full-thickness ulceration to the proximal right leg measuring 1.0 x 1.0 x 0.1 cm. Wound base is 100% granular nature with no sign of infection. No drainage. No probe to bone. No erythema or proximal streaking. Ecchymosis appreciated to the proximal right leg. Excisional debridement down to and including subcutaneous tissue of the full-thickness ulceration to the proximal aspect of the right leg with a number 5 mm dermal curette without incident. Predebridement measurements were 0.9 x 0.9 x 0.1 cm. Postdebridement measurements are 1.0 x 1.0 x 0.1 cm. Musculoskeletal: Muscle strength 5 and 5 in all quadrants bilateral. Mild palpatory tenderness appreciated full-thickness ulceration to the proximal aspect of the right leg. Evidence of severe crossing over toe to the second digit right foot. No pain with calf compression. Debridement Note Debridement Note Debridement Free Text: Excisional debridement down to and including subcutaneous tissue of the full-thickness ulceration to the proximal aspect of the right leg with a number 5 mm dermal curette without incident. Predebridement measurements were 0.9 x 0.9 x 0.1 cm. Postdebridement measurements are 1.0 x 1.0 x 0.1 cm. Post-Debridement Measurements and Additional Note: Post-Debridement Measurements/Treatment - Nurse 1 - General Ulcer Assessment Start: 08/01/23 15:27 Freq: Status: Active Protocol: .LOWEXT Activity Type Activity Date Activity User E-sign Co-sign Detail Recorded Client Recorded Date Recorded By Document 08/01/23 15:29 KW Desktop 08/01/23 15:45 KW Document 08/08/23 15:27 [facility] Desktop 08/08/23 15:38 [facility] Document 08/15/23 13:22 KW Desktop 08/15/23 13:30 KW 08/01/23 08/08/23 08/15/23 15:29 15:27 13:22 - Today's Visit Information Type of service Initial Visit Follow-up Visit Follow-up Visit (Physician/PATTERN CUTTER (Physician/PATTERN CUTTER ) ) Arrival Mode Ambulatory Ambulatory Wheelchair Transfer Assistance None Accompanied by Patient Identification Verified (Name & Yes Yes Yes ) Patient Requires Transmission-Based No Precautions Height and Weight Height 5 ft 2 in Weight 58.967 kg Weight in Pounds 130.0 lbs Weight Measurement Method Estimated by Patient Body Mass Index (BMI) 23.8 23.8 23.8 BMI Classification Normal Normal Normal BSA - Charly 1.59 Vital Signs Temperature (97.8 F-99.1 F) 96.8 F L 97.4 F L 97.2 F L Temperature Source Temporal Temporal Temporal Pulse Rate (60-100) 82 64 60 Pulse Location Monitor Monitor Monitor Respiratory Rate (12-18) 18 16 18 Respiratory rate source Observation Observation Observation Oxygen Delivery Method Room Air Room Air Room Air Blood Pressure (90/60-120/80) 173/68 H 166/69 H 128/53 H Blood Pressure Mean (mm Hg) 103 101 78 Source Monitor Monitor Monitor Position Semi-Fowlers Sitting Sitting Blood Pressure Location Left Arm Left Arm Right Arm History Since Last Visit- (Skip if this is Patient's initial visit) Have you changed medications since your Yes No last visit? Any new allergies or adverse reactions No No Had a fall/change in ADL's that may No No increase risk of falls Signs or symptoms of abuse and/or No No neglect since last visit Have you been in the hospital since your No Yes last visit? Has dressing in place as prescribed Yes Left Footwear Regular Shoe Regular Shoe Regular Shoe Right Footwear Regular Shoe Regular Shoe Regular Shoe Pain Scale: 0-10 Numeric Is Patient Pain Free? No Yes Yes RLE -Intensity 5 -Alleviating Factors/Interventions Medication Lower Extremity Assessment/ Foot Assessment/ Toe Nail Assessment Right -Posterior Tibial Palpable Yes -Posterior Tibial Doppler Monophasic -Dorsalis Pedis Palpable Yes -Dorsalis Pedis Doppler Multiphasic -Hair Growth on Legs No -Hair Growth on Toes No -Temperature of Extremity Cool -Capillary Refill Less than 3 Seconds -Thick Yes -Discolored Yes Communication Assessment Preferred language Citizen Of [place] Able to Read Yes Able to Write Yes Communication Tools None Right Hearing Abillity Normal Left Hearing Abillity Normal Visual Assistive Devices Glasses Teaching Assessment Preferences Verbal,Written, Demonstration Barriers to Learning None Readiness To Learn Excellent Willingness to Engage in Self Management High Activies Readiness to Engage in Self Management High Activities Anxiety Level Calm Cooperation Cooperative Perception Coherent Interest in Health Problem Asks Questions Education Importance Acknowledges Need Does Patient Smoke tobacco or other No substances Is Patient Diabetic No Functional Assessment Recent Decline in Ability to Perform Denies Any Declines Culture/Scientology/Travel Clerk Cultural/Scientology Needs that may affect No Treatment Plan Would you allow our hospital general house worker to No meet you for the purpose of spiritual/ emotional support? Travel Clerk to contact place of gnosticism No WC - Nurse 1 - General Ulcer Measurement Start: 08/01/23 15:27 Freq: Status: Active Protocol: Activity Type Activity Date Activity User E-sign Co-sign Detail Recorded Client Recorded Date Recorded By Document 08/01/23 15:29 KW Desktop 08/01/23 15:45 KW Document 08/08/23 15:27 BM Desktop 08/08/23 15:38 BM[facility] Document 08/15/23 13:22 KW Desktop 08/15/23 13:30 KW 08/01/23 08/08/23 08/15/23 15:29 15:27 13:22 Wound Center Nurse 1 #1 RT LE -Combined with other wound No -Current Size (cm) - Length 1.2 0.9 0.8 -Current Size (cm) - Width 0.8 0.8 1.1 -Current Size (cm) - Depth 0.1 0.3 0.1 -Total Square Cm 0.96 0.72 0.88 -Date of Last Picture (Recall this 08/08/23 field) -Photo Taken Yes -Epithelialization Small 1-33% -Tunneling No No -Undermining/Tunneling No -Circular Undermining No No -Exudate Amt Small Medium Small -Exudate Type Serosanguineous Serosanguineous Serosanguineous -Wound Margin Distinct, Distinct, Distinct, Outline Outline Outline Attached Attached Attached -Granulation Amt Small (1-33%) Large (67-100%) Large (67-100%) -Granulation Quality Red Red Red -Slough/Fibrin No -Necrosis Amt None Present (0 %) -Texture (Nhung-wound Skin Appearance) Assessed Assessed, Assessed Scarring -Moisture (Nhung-wound Skin Appearance) Assessed Assessed,Dry/ Assessed Scaly -Color (Nhung-wound Skin Appearance) Assessed Assessed Assessed -Temperature ([place]-wound Skin No Abnormality No Abnormality No Abnormality Appearance) (Pt Warm) (Pt Warm) (Pt Warm) -Tenderness on Palpation (Nhung-wound No Skin Appearance) -Ulcer Cleansing Soap and Water Soap and Water Rinsed/ Irrigated with Saline -Foul Odor after Cleansing No No No -Anesthetic Used 5% Lidocaine 5% Lidocaine 5% Lidocaine Gel Gel Gel -Wound Comment(s) unable to measure calf d/ t brace. pt fell over weekend and has knee with sutures and brace. Lower Limb Edema Present Yes Right Calf (cm) 34.4 33.3 Right Ankle (cm) 21.7 21.5 22.8 - Nurse 2 - General Ulcer CM Notes Start: 08/01/23 15:27 Freq: Status: Active Protocol: Activity Type Activity Date Activity User E-sign Co-sign Detail Recorded Client Recorded Date Recorded By Document 08/01/23 16:19 Laptop 08/01/23 16:22 Document 08/08/23 16:23 Laptop 08/08/23 16:28 Document 08/15/23 13:47 Laptop 08/15/23 13:54 08/01/23 08/08/23 08/15/23 16:19 16:23 13:47 Wound Center Nurse 2 #1 RT LE -Time 16:19 16:24 13:47 -Correct Patient Yes Yes Yes -Correct Side, Site, Position Yes Yes Yes -Correct Procedure Yes Yes Yes -Procedure Performed Yes Yes Yes -Type of Procedure Debridement Debridement Debridement -Clinical Debridement Subcutaneous Subcutaneous Subcutaneous -Tissue Removed Subcutaneous Subcutaneous Subcutaneous -Post Debridement (cm) - Length 0.9 0.9 1.0 -Post Debridement (cm) - Width 0.6 0.8 1.0 -Post Debridement (cm) - Depth 0.1 0.1 0.1 -Total Square (Post) (cm) 0.54 0.72 1.00 -Area of Debridement (cm) - Length 0.9 0.9 1.0 -Area of Debridement (cm) - Width 0.6 0.8 1.0 -Total Square (Area) (cm) 0.54 0.72 1.00 -Tunneling No No No -Undermining/Tunneling No No No -Circular Undermining No No No -Wound/Ulcer Outcome Not Healed Not Healed Not Healed -Ulcer Cleansing Rinsed/ Rinsed/ Rinsed/ Irrigated with Irrigated with Irrigated with Saline Saline Saline -Foul Odor after Cleansing No No No -Bioengineered Tissue No No No -Bleeding Controlled with Pressure Pressure Pressure -Treatment Response Procedure Procedure Procedure Tolerated Well Tolerated Well Tolerated Well -Offloading No No No -Debridement - Subq, 1st 20sq cm Yes Yes Yes Pain Scale: 0-10 Numeric Is Patient Pain Free? Yes Yes Yes PAULETTE - Nurse 3 - General Ulcer D/C NN Start: 10/04/23 15:27 Freq: Status: Active Protocol: Activity Type Activity Date Activity User E-sign Co-sign Detail Recorded Client Recorded Date Recorded By Document 08/01/23 16:35 KW Desktop 08/01/23 16:36 KW Document 08/08/23 16:40 KW Desktop 08/08/23 16:41 KW Document 08/15/23 14:09 KW Desktop 08/15/23 14:10 KW 08/01/23 08/08/23 08/15/23 16:35 16:40 14:09 Wound Care Center Nurse 3 #1 RT LE -Ulcer Cleansing Rinsed/ Rinsed/ Rinsed/ Irrigated with Irrigated with Irrigated with Saline Saline Saline -Primary Dressing Applied Mepilex Border, Mepilex Border, Mepilex Border, Promogran Promogran Promogran [place] Matter [place] Matter [place] Matter -Mepilex Border 3 1 1 -Promogran [place] Matter 1 1 1 RLE -Compression Wrap Chriss Wrap -Tubular Bandage Double Layer Double Layer -Size of Tubigrip Used Size D Size D -Size D ($) 2 2 Pain Scale: 0-10 Numeric Is Patient Pain Free? Yes Yes Yes WC - Visit Discharge Discharge Condition Stable Stable Stable Ambulatory Status Ambulatory Ambulatory Wheelchair Transportation Private Auto Private Auto Private Auto Medication Reconcilliation completed & No No No provided to patient/care provider Clinical Summary of Care Provided Yes Yes Yes Assessment/Plan Assessment/Plan (1) Ulcer of right lower extremity with fat layer exposed: CODE(S): L97.912 - Non-pressure chronic ulcer of unspecified part of right 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 PLAN: Patient was examined evaluated. All findings were discussed with the patient. All questions were answered to the patient's satisfaction. Excisional debridement down to and including subcutaneous tissue of the full-thickness ulceration to the proximal aspect of the right leg with a number 5 mm dermal curette without incident. Predebridement measurements were 0.9 x 0.9 x 0.1 cm. Postdebridement measurements are 1.0 x 1.0 x 0.1 cm. Wound was dressed with [place] moist saline and a Band-Aid. Patient will continue to do dressing changes every 3 days at home. We will begin authorization for EpiFix due to the chronicity of the patient's wound. Patient was very understanding. Follow-up in 1 week. Patient will be following up with her primary care physician regarding the fall and laceration which was sutured together in the emergency department [facility] for evaluation. (2) Pain in right leg: CODE(S): M79.604 - Pain in right leg (3) Venous (peripheral) insufficiency: CODE(S): I87.2 - Venous insufficiency (chronic) (peripheral)
== END 2023-08-28 23:59 | disposition home or self-care (01) ==
LOC: WC 13:00
PROVIDERS: PCP Family Medicine; Referring Provider Family Medicine; Visit Provider Podiatrist Foot & Ankle Surgery
DX: I87.2 Venous insufficiency (chronic) (peripheral) (principal); L97.812 Non-pressure chronic ulcer of other part of right 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; I11.0 Hypertensive heart disease with heart failure; I50.32 Chronic diastolic (congestive) heart failure; I48.11 Longstanding persistent atrial fibrillation; I25.10 Atherosclerotic heart disease of native coronary artery without angina pectoris; Z79.01 Long term (current) use of anticoagulants; E78.5 Hyperlipidemia, unspecified; Z79.899 Other long term (current) drug therapy; M20.41 Other hammer toe(s) (acquired), right foot
CPT/HCPCS: 11042; 99213; G0463

== ENCOUNTER 2023-08-17 12:20 | Emergency (ER) | payer MEDICARE, SELFPAY ==
[2023-08-17 12:21] VITALS: BP 154/112; PULSE 64; RESP 18; TEMP 35.7; O2SAT 98
[2023-08-17 12:37] VITALS: BMI 25.0
--- NOTE | 2023-08-17 13:12 | EDS_ITS ---
HPI History of Present Illness Chief Complaint: Wound Check Informant: patient and spouse/S.O. Narrative Narrative: 83-year-old female presenting to the emergency room for wound check of the right leg. Patient states that she fell last week and sustained a laceration across her knee. According to the chart she is on Coumadin for atrial fibrillation. She tells me I am on it because I am on my fourth pacemaker. She tells me that she had stitches placed was placed in a knee immobilizer. She states the knee immobilizer was rubbing the sides of her knee and she was concerned that it may break the skin. She saw her doctor who gave her a neoprene sleeve but she did not like that because it was irritating the skin on the upper tibial region. She states that she has been in wound care for almost a year. She states that I was disgusted with the care she was receiving another hospital so she came to [facility] and is healed up but now when they took the dressing off another wound has opened up. She notes that she has very thin sk in. She states that her doctor put her on an antibiotic 2 days ago but is for make her nauseated and she does not want to take it. Patient denies any swelling of the foot but notes bruising around the knee and distal to it. She denies any pain in the calf. [facility] Medical History AV block, complete CAD (coronary artery disease) Diastolic congestive heart failure Diverticulitis Essential hypertension Hyperlipidemia senior care current use of anticoagulant Longstanding persistent atrial fibrillation Nonrheumatic mitral valve regurgitation Osteoarthrosis Pericardial effusion Pulmonary hypertension Tear of biceps muscle Home Medications cetirizine 10 mg capsule (Zyrtec) 10 mg PO DAILY PRN allergy symptoms 06/08/20 [History Last Taken Unknown] calcium carb,cit ER 600 mg-vit D3 12.5 mcg (500 unit) tablet,ext.rel (Citracal- D3 Slow Release) 1 tab PO BID 06/03/21 [History Last Taken Unknown] docusate sodium 100 mg capsule (Stool Softener) 100 mg PO BID 06/03/21 [History Last Taken Unknown] albuterol sulfate 90 mcg/actuation aerosol inhaler 2 puff inhalation Q6H PRN shortness of breath or wheezing 03/22/22 [History Last Taken Unknown] warfarin 1 mg tablet 1 mg PO .COMPLEX 03/22/22 [History Last Taken Unknown] warfarin 5 mg tablet 5 mg PO .COMPLEX 03/22/22 [History Last Taken Unknown] calcitriol 0.25 mcg capsule 0.25 mcg PO DAILY 06/05/22 [History Last Taken Unknown] Lactobacillus rhamnosus GG 5 billion cell chewable tablet ([employer] Probiotics) 1 tab PO DAILY PRN probiotic 02/20/23 [History Last Taken Unknown] carvedilol 6.25 mg tablet 6.25 mg PO BID #180 tabs 02/20/23 [Rx Last Taken Unkno wn] hydrocodone-acetaminophen 5-325mg 5mg-325mg 1 tab PO 4X/DAY PRN PRN Pain 02/20/23 [History Last Taken Unknown] dcafnjiu-tqdm-zbgh 8 mg-folic 400 mcg-K 50 mcg-lutein 300 mcg tablet 1 tab PO DAILY 02/20/23 [History Last Taken Unknown] levomefolate Ca 3 mg-B6 35 mg-meB12 2 mg-algal oil 90.314 mg capsule (Metanx (algal oil)) 1 cap PO DAILY from [facility] Center 07/04/23 [History Last Taken Unknown] spironolactone 50 mg tablet 50 mg PO DAILY OK to take with Furosemide, dose increased today #90 tabs 07/04/23 [Rx Last Taken Unknown] amlodipine 5 mg tablet 5 mg PO BID #180 tabs 07/05/23 [Rx Last Taken Unknown] dapagliflozin propanediol 10 mg tablet (Farxiga) 10 mg PO DAILY #90 tabs 07/05/23 [Rx Last Taken Unknown] furosemide 40 mg tablet 40 mg PO DAILY edema, shortness of breath #90 tabs 07/05/23 [Rx Last Taken Unknown] ondansetron 4 mg disintegrating tablet 4 mg PO Q6H PRN PRN Nausea #10 tabs 08/17/23 [Rx Last Taken Unknown] Allergy/AdvReac Type Severity Reaction Status Date / Time Iodinated Contrast Media Allergy Rash Verified 08/17/23 12:21 [Iodinated Contrast- Oral and IV Dye] iodine Allergy Rash Verified 08/17/23 12:21 Penicillins [PCN] Allergy Rash Verified 08/17/23 12:21 ciprofloxacin [From Cipro] AdvReac Intermediate dizziness Verified 08/17/23 12:21 clindamycin AdvReac Intermediate nausea Verified 08/17/23 12:21 levofloxacin [From Levaquin] AdvReac Intermediate abdominal Verified 08/17/23 12:21 pain, nausea simvastatin AdvReac Intermediate Myalgias Verified 08/17/23 12:21 Family History Father , Age 82 CAD (coronary artery disease) Myocardial infarction CVA (cerebral vascular accident) Hypertension Mother , Age 94 Hypertension CVA (cerebral vascular accident) Sister Cancer Brother , Age 13 months from congenital heart defect Congenital heart defect Surgical History Cardiac pacemaker in situ History of appendectomy History of cardioversion (07/12/05) History of hysterectomy (1990) History of knee replacement (05/2018) History of left heart catheterization (09/09/03) History of radiofrequency ablation procedure for cardiac arrhythmia History of tilt table evaluation (06/02/04) Hx of atrioventricular node ablation Social History household members: spouse Smoking Status: Never smoker alcohol intake: never substance use type: does not use caffeine: No ROS ROS ED Constitutional Constitutional ED: Denies chills or weight loss Eyes Eyes: Denies change in vision or diplopia ENT ENT ED: Denies ear pain, rhinorrhea or sore throat Cardiovascular Cardiovascular: Denies chest pain, orthopnea, palpitations or racing heartbeat Respiratory/Chest Respiratory/Chest: Denies cough, dyspnea or orthopnea Gastrointestinal Gastrointestinal: Denies abdominal pain, diarrhea, nausea or vomiting Genitourinary Genitourinary ED: Denies dysuria, hematuria or urinary frequency Musculoskeletal Musculoskeletal: Denies arthralgias or myalgias Integumentary Reports other Details: See history of present illness ; Denies abscess or rash Neurologic Neurologic: Denies headache(s) or weakness Psychiatric Psychiatric: Denies anxiety, depression, suicidal ideation or suicidal thoughts Endocrine Endocrinology: Denies polydipsia, polyphagia or polyuria Allergic/Immunologic Allergic/Immunologic ED: Denies mouth swelling, tongue swelling or urticaria EXAM Physical Exam Const Vital Signs: 08/17/23 12:21 Temperature 96.2 F L Temperature Source Temporal Pulse Rate 64 Respiratory Rate 18 Blood Pressure 154/112 H Blood Pressure Mean 126 Pulse Ox 98 Oxygen Delivery Method Room Air Positive well nourished and well developed General Appearance ED: well developed HEENT Reports normocephalic, head/scalp atraumatic and moist mucous membranes Eyes PERRL and EOMs intact bilaterally Neck no lymphadenopathy, supple and no JVD Resp normal respiratory effort and clear to auscultation bilaterally Cardio regular rate, regular rhythm and no murmurs GI normal to inspection, nondistended, normoactive bowel sounds and non-tender Palpation: soft Back/Spine no CVA tenderness and normal ROM Extremity Extremity Narrative: The patient has extensive ecchymosis around the knee and onto the posterior aspect of the thigh and circumferential on the upper leg. Anterior lower leg demonstrates a superficial wound where the skin appears to have been removed. Is maybe a dime in size. The anterior aspect of the left knee demonstrates laceration that is sutured. Laterally there is 1/2 cm area where there is a dark blood oozing from. There is a hematoma over the patellar region. Extensor mechanism is intact. There is a well-healed surgical incision from knee replacement present. General Extremety ED: Negative for edema General Extremity: Negative for edema Neuro oriented x3 and CN's II-XII intact bilaterally Sensorium / Orientation: alert Motor Exam: strength 5/5 throughout Psych mental status grossly normal Mood & Affect: Negative for depressed or tearful Skin no rashes or lesions noted and no wounds MDM MDM MDM Narrative Medical decision making narrative: Patient has very strong feelings about any type of suggestive treatment. She does not want to wear a neoprene sleeve. She does not wish to have a knee immobilizer. She does not want her antibiotic and is not sure what antibiotic she can take because all those medicines cause me problems. I explained to her sometimes the simplest treatment is the best. I think we should simply wrap the leg with a Telfa pad. She was given instructions on how to remove the Telfa if it appears coagulated to the wound. We can use simple gauze to wrap it. She was advised then then the skin to be up to her to remember not to do deeply/greatly bend the knee. I do not believe there is DVT present. She is on Coumadin and the foot itself is not swollen and the calf is nontender. I do not see evidence of infection at this time and I am worried that if I try to put her on antibiotic she will be unable to tolerate it as she is unable to tolerate that when she is on currently. wonders if there is any long-term sequela to this and I stated that it is hard to say. She certainly will have very delayed wound healing. She has very thin skin and from all evidence it takes months for her to heal a wound on the lower extremity due to her vascular insufficiency/thin skin. Nursing spoke with me and stated that the patient and her would be interested in going to a intermediate if she is unsure if she can take care of herself with this. Case management visited with the patient. She states she can definitely cook for herself but is just looking for some help around the house and changes her dressings and stuff. I do not think she needs admitted for the hospital for that and I do not think she needs to go to a intermediate. We consider up with resources for in-home care. Discharge Plan Triage Chief Complaint: Wound Check Other Complaint: Lower Extremity Injury ED Provider: Joseph Mackenzie Dx/Rx/DC Orders Clinical Impression: Hematoma of right knee region, Encounter for post-traumatic wound check, Anticoagulated on Coumadin, Nausea Instructions: ED Wound Check (No Infection) Prescriptions: New ondansetron [ondansetron] 4 mg tablet,disintegrating 4 mg PO Q6H PRN PRN (Reason: Nausea) Qty: 10 0RF No Action Zyrtec 10 mg capsule 10 mg PO DAILY PRN (Reason: allergy symptoms) warfarin 1 mg tablet 1 mg PO .COMPLEX Rx Instructions: 1 mg PO Daily or as directed; Current dose 9 mg on Mondays and Fridays, 6 mg all other days. Managed by [facility] calcium carb and citrate-vitD3 [Citracal-D3 Slow Release] 600 mg-12.5 mcg (500 unit) tablet extended release 1 tab PO BID docusate sodium [Stool Softener] 100 mg capsule 100 mg PO BID calcitriol 0.25 mcg capsule 0.25 mcg PO DAILY warfarin 5 mg tablet 5 mg PO .COMPLEX Rx Instructions: 5 mg PO daily or as directed; Current dose 9 mg on Mondays and Fridays, 6 mg all other days. Managed by [facility] albuterol sulfate 90 mcg/actuation HFA aerosol inhaler 2 puff inhalation Q6H PRN (Reason: shortness of breath or wheezing) Patient Comments: inhale 2 puffs by mouth and INTO THE LUNGS every 6 hours if needed for wheezing [employer] Probiotics 5 billion cell tablet,chewable 1 tab PO DAILY PRN (Reason: probiotic) carvedilol 6.25 mg tablet 6.25 mg PO BID Qty: 180 3RF Rx Instructions: must administer with a meal/food amlodipine 5 mg tablet 5 mg PO BID Qty: 180 3RF furosemide 40 mg tablet 40 mg PO DAILY Qty: 90 3RF Farxiga 10 mg tablet 10 mg PO DAILY Qty: 90 3RF hydrocodone-acetaminophen 5-325 mg tablet 1 tab PO 4X/DAY PRN PRN (Reason: Pain) tutvnquu-nlr-[id number]-FA-vit K-lut 8 mg iron-400 mcg-300 mcg tablet 1 tab PO DAILY spironolactone 50 mg tablet 50 mg PO DAILY Qty: 90 3RF [id number]-algal oil [Metanx (algal oil)] 3 mg-35 mg-2 mg -90.314 mg capsule 1 cap PO DAILY Primary Care Provider: Rashad Peñaloza Referrals: Rashad Peñaloza MD [Primary Care Provider] - 1 Week Activity Restrictions/Additional Instructions: I certainly would recommend following up with the wound care clinic. If you do not already have an appointment with them I would call them. Disposition Disposition: Home, Self Care
--- NOTE | 2023-08-17 14:15 | CM.ED ---
Social Work SW received referral due to patient asking about detention placement. SW introduced self and role to patient. SW reviewed patient's needs and concerns with being in the home. Pt reports she has been using a bedside commode because it has been really hard to get to the bathroom. Pt reports she can cook but she shouldn't stand that long. Pt reports it is too much for her spouse to help her. Pt reports when she had her knee replacement she went somewhere and it would just be easier if she could go to a detention. SW explained that physician did not find any medical necessity to admit pt. SW reviewed the ability to private pay and patient denies ability. Pt encouraged to get support from children who are local. Pt given private duty [facility] information, direction home info, and a place for mom information. Pt also encouraged to talk to primary care doctor for a home health order if she feels it is needed. Pt reports it would just be easier if she went somewhere and had people to care for her. Pt is ambulating but with some pain and does not present as needing skilled care. Pt denies any further SW needs at this time. Pt reports she needs something for nausea. SW notified medical staff. Abimbola Correia PHP PROGRAMMER, [employer]
[2023-08-17] MEDS: Ondansetron ODT 4 MG Tablet PO (15:32)
== END 2023-08-17 15:41 | disposition home or self-care (01) ==
PROVIDERS: Emergency Provider Emergency Medicine; PCP Family Medicine; Visit Provider Emergency Medicine
DX: S80.01XA Contusion of right knee, initial encounter (principal); I11.0 Hypertensive heart disease with heart failure; I50.32 Chronic diastolic (congestive) heart failure; I48.11 Longstanding persistent atrial fibrillation; Z51.89 Encounter for other specified aftercare; R11.0 Nausea; I25.10 Atherosclerotic heart disease of native coronary artery without angina pectoris; Z79.899 Other long term (current) drug therapy; Z79.01 Long term (current) use of anticoagulants; Z95.0 Presence of cardiac pacemaker; X58.XXXA Exposure to other specified factors, initial encounter
CPT/HCPCS: 99283

== ENCOUNTER 2023-12-07 15:13 | Emergency (ER) | payer MEDICARE, SELFPAY ==
[2023-12-07 15:14] VITALS: BP 149/79; PULSE 64; RESP 18; TEMP 36.9; O2SAT 97; BMI 24.1
--- NOTE | 2023-12-07 16:24 | EX.ED.DYSGE1 ---
HPI <MELBA Arteaga - Last Filed: 12/07/23 18:15> History of Present Illness Chief Complaint: Abn Labs Narrative Narrative: 83-year-old female with PMH of A-fib, SVT, pacemaker, mitral valve regurgitation, CHF, pulmonary hypertension, remote pericardial effusion s/p pericardiocentesis states her doctor told her to come in due to abnormal labs. About 2 weeks ago she was admitted [facility] for influenza and pneumonia. At discharge her sodium was 131. She had a follow-up with her PCP and repeat blood work showed sodium of 126. Her PCP told her to stop her diuretics (furosemide and Aldactone) and then she developed orthopnea and bilateral ankle swelling. She restarted the furosemide 40 mg once daily on 12/03 but still has persistent orthopnea and not much improvement in her ankle swelling. This afternoon she also restarted Aldactone. Her primary care said her labs showed signs of CHF and to go to the ED. She states she is still congested with a cough since having the flu. No recent fever or chills. No chest pain. PFSH <MELBA Arteaga - Last Filed: 12/07/23 18:15> PFSH Medical History AV block, complete CAD (coronary artery disease) Diastolic congestive heart failure Diverticulitis Essential hypertension Hyperlipidemia half-way current use of anticoagulant Longstanding persistent atrial fibrillation Nonrheumatic mitral valve regurgitation Osteoarthrosis Pericardial effusion Pulmonary hypertension Tear of biceps muscle Home Medications cetirizine 10 mg capsule (Zyrtec) 10 mg PO DAILY PRN allergy symptoms 06/08/20 [History Last Taken Unknown] calcium carb,cit ER 600 mg-vit D3 12.5 mcg (500 unit) tablet,ext.rel (Citracal-D3 Slow Release) 1 tab PO BID 06/03/21 [History Last Taken Unknown] docusate sodium 100 mg capsule (Stool Softener) 100 mg PO BID 06/03/21 [History Last Taken Unknown] albuterol sulfate 90 mcg/actuation aerosol inhaler 2 puff inhalation Q6H PRN shortness of breath or wheezing 03/22/22 [History Last Taken Unknown] warfarin 1 mg tablet 1 mg PO .COMPLEX 03/22/22 [History Last Taken Unknown] calcitriol 0.25 mcg capsule 0.25 mcg PO DAILY 06/05/22 [History Last Taken Unknown] Lactobacillus rhamnosus GG 5 billion cell chewable tablet ([employer] Probiotics) 1 tab PO DAILY PRN probiotic 02/20/23 [History Last Taken Unknown] carvedilol 6.25 mg tablet 6.25 mg PO BID #180 tabs 02/20/23 [Rx Last Taken Unknown] hydrocodone-acetaminophen 5-325mg 5mg-325mg 1 tab PO 4X/DAY PRN PRN Pain 02/20/23 [History Last Taken Unknown] ecptnpyt-oruc-bgeu 8 mg-folic 400 mcg-K 50 mcg-lutein 300 mcg tablet 1 tab PO DAILY 02/20/23 [History Last Taken Unknown] levomefolate Ca 3 mg-B6 35 mg-meB12 2 mg-algal oil 90.314 mg capsule (Metanx (algal oil)) 1 cap PO DAILY [facility] 07/04/23 [History Last Taken Unknown] spironolactone 50 mg tablet 50 mg PO DAILY OK to take with Furosemide, dose increased today #90 tabs 07/04/23 [Rx Last Taken Unknown] amlodipine 5 mg tablet 5 mg PO BID #180 tabs 07/05/23 [Rx Last Taken Unknown] furosemide 40 mg tablet 40 mg PO DAILY edema, shortness of breath #90 tabs 07/05/23 [Rx Last Taken Unknown] ondansetron 4 mg disintegrating tablet 4 mg PO Q6H PRN PRN Nausea #10 tabs 08/17/23 [Rx Last Taken Unknown] Allergy/AdvReac Type Severity Reaction Status Date / Time Iodinated Contrast Media Allergy Rash Verified 12/07/23 15:14 [Iodinated Contrast- Oral and IV Dye] iodine Allergy Rash Verified 12/07/23 15:14 Penicillins [PCN] Allergy Rash Verified 12/07/23 15:14 ciprofloxacin [From Cipro] AdvReac Intermediate dizziness Verified 12/07/23 15:14 clindamycin AdvReac Intermediate nausea Verified 12/07/23 15:14 levofloxacin [From Levaquin] AdvReac Intermediate abdominal Verified 12/07/23 15:14 pain, nausea simvastatin AdvReac Intermediate Myalgias Verified 12/07/23 15:14 Family History Father , Age 82 CAD (coronary artery disease) Myocardial infarction CVA (cerebral vascular accident) Hypertension Mother , Age 94 Hypertension CVA (cerebral vascular accident) Sister Cancer Brother , Age 13 months from congenital heart defect Congenital heart defect Surgical History Cardiac pacemaker in situ History of appendectomy History of cardioversion (07/12/05) History of hysterectomy (1990) History of knee replacement (05/2018) History of left heart catheterization (09/09/03) History of radiofrequency ablation procedure for cardiac arrhythmia History of tilt table evaluation (06/02/04) Hx of atrioventricular node ablation Social History household members: spouse Smoking Status: Never smoker alcohol intake: never substance use type: does not use caffeine: No ROS <MELBA Arteaga - Last Filed: 12/07/23 18:15> ROS ED ROS Narrative Constitutional: Negative for fever, chills, malaise. CVS: Negative for chest pain, syncope. Respiratory: Positive for cough, orthopnea. GI: Negative for abdominal pain, nausea, vomiting. Musc: Negative for joint pain. EXAM <MELBA Arteaga - Last Filed: 12/07/23 18:15> Physical Exam Narrative Exam Narrative: CONST: Patient sitting in no acute distress. EYES: Normal inspection. NECK: Normal inspection. RESP: No respiratory distress, CTAB. CVS: Regular rate and rhythm, no murmur, no gallop. ABD: Soft and nontender, no guarding or rebound, nondistended. SKIN: Color normal, no rash, warm, dry, intact. EXTREMITIES: Normal appearance, +1 bilateral ankle edema. NEURO: Alert and answering questions appropriately. PSYCH: Normal affect. Const Vital Signs: 12/07/23 15:14 12/07/23 16:43 12/07/23 18:32 Temperature 98.5 F Temperature Source Temporal Pulse Rate 64 64 Respiratory Rate 18 16 Respiratory Effort Short of Breath Blood Pressure 149/79 H 128/63 H Blood Pressure Mean 102 84 Pulse Ox 97 94 Oxygen Delivery Method Room Air Room Air 12/07/23 18:32 Temperature Temperature Source Pulse Rate 64 Respiratory Rate 16 Respiratory Effort Blood Pressure 128/63 H Blood Pressure Mean 84 Pulse Ox 94 Oxygen Delivery Method <Dr. Rios Del Valle, - Last Filed: 12/07/23 19:07> Physical Exam Const Vital Signs: 12/07/23 15:14 12/07/23 16:43 12/07/23 18:32 Temperature 98.5 F Temperature Source Temporal Pulse Rate 64 64 Respiratory Rate 18 16 Respiratory Effort Short of Breath Blood Pressure 149/79 H 128/63 H Blood Pressure Mean 102 84 Pulse Ox 97 94 Oxygen Delivery Method Room Air Room Air 12/07/23 18:32 Temperature Temperature Source Pulse Rate 64 Respiratory Rate 16 Respiratory Effort Blood Pressure 128/63 H Blood Pressure Mean 84 Pulse Ox 94 Oxygen Delivery Method MDM <MELBA Arteaga - Last Filed: 12/07/23 18:15> MDM MDM Narrative Medical decision making narrative: History gathered from: Patient and spouse Patient had recent downtrending hyponatremia and was told to discontinue her diuretics, then developed orthopnea and bilateral lower extremity swelling. She has history of CHF. She has restarted her diuretics but was told to come in due to abnormal outpatient labs showing CHF. She appears well and nontoxic. Vital signs stable. She is 97% on room air and speaking in full sentences in no distress. She has no evidence of JVD, lung sounds are clear, 1+ bilateral ankle edema. EKG shows ventricular paced rhythm. CBC is unremarkable. She has chronic anemia at 11.1. Sodium is 132. I do not have access to her outside records at [facility] but she states it was 126 earlier this week so it is trending up. Her renal function is normal. BNP is 287.9 and CXR shows no acute process. Ambulatory pulse ox is 92% or above so I feel she is appropriate for discharge home. She can continue furosemide and Aldactone. I recommended she see her PCP or document advisor within 1 week for further management and to recheck blood work. She was comfortable with this plan and discharged in stable condition. Differential: Hyponatremia, CHF exacerbation, residual pneumonia Lab Data Attestation: I reviewed the patient's lab results. Labs: Laboratory Results - last 24 hr 12/07/23 16:20 WBC 10.1 RBC 3.92 L Hgb 11.1 L Hct 34.2 L MCV 87.2 MCH 28.3 MCHC 32.5 RDW Std Deviation 50.2 H RDW Coeff of Donn 16.1 H Plt Count 252 MPV 8.8 Immature Gran % (Auto) 0.300 Neut % (Auto) 56.2 Lymph % (Auto) 30.7 Coke % (Auto) 8.7 Eos % (Auto) 3.6 Baso % (Auto) 0.5 Absolute Neuts (auto) 5.7 Absolute Lymphs (auto) 3.09 Nucleated RBC % 0 Sodium 132 L Potassium 4.0 Chloride 99 Carbon Dioxide 28.0 Anion Gap 5 BUN 20 H Creatinine 0.82 Estim Creat Clear Calc 41.11 Est GFR (MDRD) Af Amer 85 Est GFR (MDRD) Non-Af 71 BUN/Creatinine Ratio 24.3 H Glucose 102 Calcium 9.2 B-Natriuretic Peptide 287.9 H Radiography Diagnostic Testing: Clinical Impression(s) from Imaging Studies Chest X-Ray 12/07/23 17:38 IMPRESSION: No acute radiographic abnormalities. Electronically Signed: Garcia Magana MD at 17:54 EST , ED attending interpretation of 2-view chest x-ray shows normal heart size with pacemaker, no acute infiltrate, edema, or effusion. EKG Initial EKG: Attestation: I personally reviewed and interpreted this EKG as follows: Comments: Ventricular paced rhythm at 64 bpm with occasional PVCs <Dr. Rios Del Valle, DO - Last Filed: 12/07/23 19:07> [facility] Lab Data Labs: Laboratory Results - last 24 hr 12/07/23 16:20 WBC 10.1 RBC 3.92 L Hgb 11.1 L Hct 34.2 L MCV 87.2 MCH 28.3 MCHC 32.5 RDW Std Deviation 50.2 H RDW Coeff of Donn 16.1 H Plt Count 252 MPV 8.8 Immature Gran % (Auto) 0.300 Neut % (Auto) 56.2 Lymph % (Auto) 30.7 Coke % (Auto) 8.7 Eos % (Auto) 3.6 Baso % (Auto) 0.5 Absolute Neuts (auto) 5.7 Absolute Lymphs (auto) 3.09 Nucleated RBC % 0 Sodium 132 L Potassium 4.0 Chloride 99 Carbon Dioxide 28.0 Anion Gap 5 BUN 20 H Creatinine 0.82 Estim Creat Clear Calc 41.11 Est GFR (MDRD) Af Amer 85 Est GFR (MDRD) Non-Af 71 BUN/Creatinine Ratio 24.3 H Glucose 102 Calcium 9.2 B-Natriuretic Peptide 287.9 H Radiography Diagnostic Testing: Clinical Impression(s) from Imaging Studies Chest X-Ray 12/07/23 17:38 IMPRESSION: No acute radiographic abnormalities. Electronically Signed: Garcia Magana MD at 17:54 EST , Treatment and Re-Evaluation :: I have personally performed a face to face assessment of the patient and have reviewed the CINTHIA Note. I performed a substantive portion of the visit including all aspects of the following. My puentes findings include: History: Patient presents with congestive heart failure. Patient states that she was told to stop her diuretics recently. Patient states she started having more shortness of breath. Patient had outpatient labs and chest x-ray by her primary care physician. Patient states she was called today and told to come to the emergency department because her labs showed she was having some congestive heart failure. Patient restarted her diuretics recently. Patient denies any fevers or chills. Patient denies any chest pain. Patient states he has to sleep on 2 or 3 pillows. Exam: Vital signs are stable. Patient is afebrile. Patient is in no acute distress. Oral mucosa is pink and moist. Neck is supple. Trachea is midline. There is no JVD. Heart was regular rate and rhythm. There is a grade 2/6 systolic ejection murmur at the lower left sternal border. Lungs show few rales in the bases bilaterally. There is good respiratory effort noted. Abdomen is soft. Bowel sounds are normal. There is no tenderness. Cranial nerves II through XII are intact. There are no focal motor or sensory deficits noted. Remedies are intact. There is 2+ edema of the lower extremities bilaterally. Medical Decision Making: Differential diagnosis includes congestive heart failure, electrolyte abnormality, cardiac dysrhythmia, cardiac ischemia, and pneumonia. EKG will be obtained to assess for cardiac dysrhythmia and cardiac ischemia. Chest x-ray will be obtained to assess for congestive heart failure, pneumonia, pneumothorax. CBC will be obtained to assess for leukocytosis and anemia. Basic metabolic profile will be obtained to assess for electrolyte abnormality and renal function. BNP will be obtained to assess for congestive heart failure. EKG was obtained. On my interpretation, it shows a ventricular paced rhythm with occasional PVCs. There is a left bundle branch block pattern noted. There are no acute ST or T wave changes noted. CBC was reviewed. There is a mild anemia with a hemoglobin of 11.1 and hematocrit 34.2. Basic metabolic profile was reviewed. Sodium was slightly low at 132. BUN was 20. BNP was reviewed and was elevated at 287.9. PA and lateral chest x-ray was obtained. There are 2 views. On my independent interpretation, lung salas are clear. There is normal cardiac silhouette. Bony thorax is normal. There is no acute process noted. Radiologist also interpreted the x-ray and agrees. Patient was able to ambulate here in the emergency department on room air. Patient's oxygenation stayed at 92 or above. Patient feels better and wants to go home. Patient was instructed to follow-up with her primary care physician in 5 to 7 days. Patient was instructed return if worse in any way. Patient understood and was agreeable with the plan. All questions were answered. Discharge Plan Triage Chief Complaint: Abn Labs ED Midlevel Provider: Vicky Vieyra ED Provider: Rios Del Valle Dx/Rx/DC Orders Clinical Impression: History of chronic CHF, Acute hyponatremia Instructions: ED Hyponatremia Prescriptions: No Action Zyrtec 10 mg capsule 10 mg PO DAILY PRN (Reason: allergy symptoms) warfarin 1 mg tablet 1 mg PO .COMPLEX Rx Instructions: coumadin 4mg on sunday & , 6mg on sunday, sunday, sunday,sunday, sunday calcium carb and citrate-vitD3 [Citracal-D3 Slow Release] 600 mg-12.5 mcg (500 unit) tablet extended release 1 tab PO BID docusate sodium [Stool Softener] 100 mg capsule 100 mg PO BID calcitriol 0.25 mcg capsule 0.25 mcg PO DAILY albuterol sulfate 90 mcg/actuation HFA aerosol inhaler 2 puff inhalation Q6H PRN (Reason: shortness of breath or wheezing) Patient Comments: inhale 2 puffs by mouth and INTO THE LUNGS every 6 hours if needed for wheezing [employer] Pro[employer]otics 5 billion cell tablet,chewable 1 tab PO DAILY PRN (Reason: probiotic) carvedilol 6.25 mg tablet 6.25 mg PO BID Qty: 180 3RF Rx Instructions: must administer with a meal/food amlodipine 5 mg tablet 5 mg PO BID Qty: 180 3RF furosemide 40 mg tablet 40 mg PO DAILY Qty: 90 3RF hydrocodone-acetaminophen 5-325 mg tablet 1 tab PO 4X/DAY PRN PRN (Reason: Pain) [id number]-yol-[id number]-FA-vit K-lut 8 mg iron-400 mcg-300 mcg tablet 1 tab PO DAILY ondansetron [ondansetron] 4 mg tablet,disintegrating 4 mg PO Q6H PRN PRN (Reason: Nausea) Qty: 10 0RF spironolactone 50 mg tablet 50 mg PO DAILY Qty: 90 3RF [id number]-algal oil [Metanx (algal oil)] 3 mg-35 mg-2 mg -90.314 mg capsule 1 cap PO DAILY Primary Care Provider: Rashad Peñaloza Referrals: Rashad Peñaloza MD [Primary Care Provider] - Activity Restrictions/Additional Instructions: Today your sodium is 132. There is no signs of acute congestive heart failure. I think you can take your furosemide and Aldactone but it is very important that you follow-up with your PCP or document advisor within a week. Disposition Disposition: Home, Self Care Discharge Date/Time: 12/07/23 18:43
[2023-12-07 16:52] LABS: Absolute Lymphocyte Count 3.09 X10^3/uL (0.83-4.51); Absolute Neutrophil Count 5.7 X10^3/uL (2.0-7.7); Basophil# 0.05 X10^3/uL; Basophil% 0.5 % (0-1); Eosinophil# 0.36 X10^3/uL; Eosinophils% 3.6 % (0-5); Hematocrit 34.2 % (37-47); Hemoglobin 11.1 g/dL (12.0-15.0); Lymphocyte # 3.09 X10^3/ul (0.83-4.51); Lymphocyte % 30.7 % (19-41); Mean Corp Hgb Conc 32.5 g/dL (32-36); Mean Corpuscular Hgb 28.3 pg (27.0-32.0); Mean Corpuscular Volume 87.2 fL (81-99); Mean Platelet Vol. 8.8 fl (6.2-12.0); Monocyte# 0.88 X10^3/uL; Monocyte% 8.7 % (0-10); NRBC Flagged by Analyzer 0 % (0-5); Neutrophil # 5.66 X10^3/uL (2.7-7.7); Neutrophil % 56.2 % (47-70); Platelet Count 252 K/mm3 (150-450); RBC Distribution Width CV 16.1 % (11.6-14.6); RBC Distribution Width SD 50.2 fl (35.1-43.9); Red Blood Count 3.92 M/mm3 (4.2-5.4); White Blood Count 10.1 K/mm3 (4.4-11.0)
[2023-12-07 17:07] LABS: Anion Gap 5 (5-15); BUN 20 mg/dL (7-18); BUN/Creat Ratio 24.3 RATIO (10-20); Calcium,Total 9.2 mg/dL (8.5-10.1); Chloride 99 mmol/L (98-107); Creatinine, Serum 0.82 mg/dL (0.55-1.02); EST Glomerular Filtration Rate 71 mL/min (>60); Est Glom Filt Rate - Afr Amer 85 mL/min (>60); Estimated Creatinine Clearance 41.11 ml/min; Glucose 102 mg/dL (74-106); Sodium Level 132 mmol/L (136-145)
[2023-12-07 17:08] LABS: BNP,B-Type NATRIURETIC PEPTIDE 287.9 pg/mL (0-100)
--- NOTE | 2023-12-07 17:38 | RAD_ITS ---
INDICATION: cough EXAMINATION/TECHNIQUE: X-RAY - XR Chest 2 Views COMPARISON: 07/04/2023 FINDINGS: The lungs are clear. Tortuous and calcified thoracic aorta. The heart is mildly enlarged. Left-sided cardiac device. No pleural effusion or pneumothorax. Degenerative changes of both shoulders. Evidence of chronic rotator cuff disease. RAD/Chest PA and Lateral IMPRESSION: No acute radiographic abnormalities. Electronically Signed: Garcia Magana MD at 17:54 EST ,
[2023-12-07 17:48] VITALS: O2SAT 92
--- OUTSIDE RECORDS SUMMARY | 2023-12-07 18:11 | XMS RPT_ITS | CCD ---
Author Name Unknown Address [address] [place] [address] Organization [facility] Care Team Providers Care Frozen Pie Maker Name Role Phone KHETARPAL, RICHARD Unavailable Unavailable KHETARPAL, RICHARD Unavailable Unavailable ZOHRA PEÑALOZA Unavailable Unavailable ERNIE HARRIS Unavailable Unavailable ERNIE HARRIS Unavailable Unavailable ZOHRA PEÑALOZA Unavailable Unavailable Nehemias Bhandari Unavailable Unavailable Zohra Peñaloza Unavailable Unavailable Nehemias Bhandari Unavailable Unavailable Zohra Peñaloza Unavailable Unavailable ZOHRA PEÑALOZA MD Primary Care Physician Denita Menjivar Unavailable Unavailable Samples Green Plumber, Amy Unavailable Unavailable EmilyLorin L Unavailable Unavailable Na PT, Vicky Unavailable Unavailable Karen Orozco Unavailable Unavailable Yari Conley Unavailable Unavailable Kay Vogel Primary Care Provider KAY VOGEL Primary Care NICOLE Sargent Attending Unavailable ZOHRA PEÑALOZA MD Primary Care Unavailable CHERELLE BECERRA, GUERDA Pham Attending ZOHRA Samayoa MD Primary Care Unavailable CHERELLE BECERRA, GUERDA Pham Attending UnavailZOHRA Haider MD Primary Care Unavailable ASHLEY CROSS MD Attending Unavailable ZOHRA PEÑALOZA MD Primary Care Unavailable HALEY BECERRA, DR BRITTNY Infante Attending ZOHRA Wood MD Primary Care Unavailable CHERELLE BECERRA, GUERDA Pham Attending Unavailab jackie VILLARREAL DPM, GUERDA Pham Attending ZOHRA Samayoa MD Primary Care Unavailable CHERELLE BECERRA, GUERDA Pham Attending UnavailZOHRA Haider MD Primary Care Unavailable ZOHRA PEÑALOZA MD Primary Care Unavailable LASCOLA DPM, GUERDA Pham Attending Unavailab jackie RODRIGUEZ DO, DR AVERY Attending Unavailable DANIELLE MOHR, ZOHRA Oneil Primary Care Unavailable DANIELLE MOHR, ZOHRA Oneil Primary Care Unavailable MICHAEL MENJIVAR, DR AVERY Attending Unavailable DANIELLE MOHR, ZOHRA Oneil Primary Care Unavailable LASCOLA DPM, GUERDA Pham Attending Unavailab jackie PEÑALOZA MD, ZOHRA Oneil Primary Care Unavailable LASCOLA DPM, GUERDA Pahm Attending Unavailab jackie PEÑALOZA MD, ZOHRA Oneil Primary Care Unavailable LASCOLA DPM, GUERDA Pham Attending Unavailab jackie PEÑALOZA MD, ZOHRA Oneil Primary Care Unavailable LASCOLA DPM, GUERDA Pham Attending Unavailab jackie PEÑALOZA MD, ZOHRA Oneil Primary Care Unavailable LASCOLA DPM, GUERDA Pham Attending Unavailab jackie PEÑALOZA MD, ZOHRA Oneil Primary Care Unavailable NAFZIGER DPNils, DR BRITTNY Infante Attending Hans PEÑALOZA MD, ZOHRA Oneil Primary Care Unavailable ASHLEY CROSS MD Attending Unavailable DANIELLE MOHR, ZOHRA Oneil Primary Care Unavailable ASHLEY CROSS MD Attending Unavailable DANIELLE MOHR, ZOHRA Oneil Primary Care Unavailable LASCOLA DPM, GUERDA Pham Attending Unavailab jackie PEÑALOZA MD, ZOHRA Oneil Primary Care Unavailable NAFZIGER MARIAM, DR BRITTNY Infante Attending Unav eloise PEÑALOZA MD, ZOHRA Oneil Primary Care Unavailable ASHLEY CROSS MD Attending Unavailable DANIELLE MOHR, ZOHRA Oneil Primary Care Unavailable ASHLEY CROSS MD Attending Unavailable DANIELLE MOHR, ZOHRA Oneil Primary Care Unavailable ASHLEY CROSS MD Attending Unavailable ZOHRA PEÑALOZA MD Primary Care Unavailable ASHLEY CROSS MD Attending Unavailable DANIELLE MOHR, ZOHRA Oneil Primary Care Unavailable ASHLEY CROSS MD Attending Unavailable DANIELLE MOHR, ZOHRA Oneil Primary Care Unavailable ASHLEY CROSS MD Attending Unavailable DANIELLE MOHR, ZOHRA Oneil Primary Care Unavailable ASHLEY CROSS MD Attending Unavailable DANIELLE MOHR, ZOHRA Oneil Primary Care Unavailable ASHLEY CROSS MD Attending Unavailable CHERELLE MACIASM, GUERDA Pham Attending Unavailab jackie PEÑALOZA MD, ZOHRA Oneil Primary Care Unavailable ZOHRA PEÑALOZA MD Primary Care Unavailable MICHAEL MENJIVAR, DR AVERY Attending Unavailable ZOHRA PEÑALOZA MD Primary Care Unavailable DIDIERCOYORDY DPM, GUERDA Pham Attending Unavailab jackie PEÑALOZA MD, ZOHRA Oneil Primary Care Unavailable LASCOLA DPM, GUERDA Pham Attending UnavailZOHRA Haider MD Primary Care Unavailable ZOHRA PEÑALOZA MD Attending Unavailable DIDIERCOLA DPM, GUERDA Pham Attending Unavailab Karla MOHR, ZOHRA Oneil Primary Care Unavailable ZOHRA PEÑALOZA MD Primary Care Unavailable LASCOLA DPM, GUERDA Pham Attending Unavailab le LASCOLA DPM, GUERDA Pham Attending UnavailZOHRA Haider MD Primary Care Unavailable MICHAEL MENJIVAR, DR AVERY Attending Unavailable ZOHRA PEÑALOZA MD Primary Care Unavailable LASCOLA DPM, GUERDA Pham Attending Unavailab jackie PEÑALOZA MD, ZOHRA Oneil Primary Care Unavailable LASCOLA DPM, GUERDA Pham Attending Unavailab jackie PEÑALOZA MD, ZOHRA Oneil Primary Care Unavailable LASCOLA DPM, GUERDA Pham Attending Unavailab jackie PEÑALOZA MD, ZOHRA Oneil Primary Care Unavailable ZOHRA PEÑALOZA MD Primary Care Unavailable LASCOLA DPM, GUERDA Pham Attending Unavailab le LASCOLA DPM, GUERDA Pham Attending Unavailab jackie PEÑALOZA MD, ZOHRA Oneil Primary Care Unavailable LASCOLA DPM, GUERDA Pham Attending Unavailab jackie PEÑALOZA MD, ZOHRA Oneil Primary Care Unavailable LASCOLA DPM, GUERDA Pham Attending Unavailab jackie PEÑALOZA MD, ZOHRA Oneil Primary Care Unavailable ZOHRA PEÑALOZA MD Primary Care Unavailable STEPHON MOHR FACTu, GLORIA Lopez Consulting Unavail able ZOHRA PEÑALOZA MD Attending Unavailable ZOHRA PEÑALOZA MD Primary Care Unavailable LASCOLA DPM, GUERDA Pham Attending Unavailab Karla MOHR, ZOHRA Oneil Primary Care Unavailable ZOHRA PEÑALOZA MD Attending Unavailable ZOHRA PEÑALOZA MD Primary Care Unavailable ZOHRA PEÑALOZA MD Attending Unavailable ZOHRA PEÑALOZA MD Primary Care Unavailable TANESHA MENJIVAR, LETHA Attending Unavailable FOITH 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SHERRELL Referring Unavailab LETHA Balderrama DO Consulting Unavailable FOTIFFANY 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SHERRELL Admitting UnavailZOHRA Haider MD Primary Care Unavailable ANTHONY KANG CNP Attending Unavailable LACY MOHR, MANUEL Foley Attending Unavailable ZOHRA PEÑALOZA MD Primary Care Unavailable ZOHRA PEÑALOZA MD Primary Care Unavailable LACY MOHR, MANUEL Foley Attending Unavailable ZOHRA PEÑALOZA MD Primary Care Unavailable BRANDON MENJIVAR, DR KRYS Walton Attending Unavailalba PEÑALOZA MD, ZOHRA Oneil Primary Care Unavailable ZOHRA PEAÑLOZA MD Attending Unavailable ZOHRA PEÑALOZA MD Attending Unavailable ZOHRA PEÑALOZA MD Primary Care Unavailable GABY SR MD Attending Unavailable ZOHRA PEÑALOZA MD Primary Care Unavailable CHERELLE BECERRA, GUERDA Pham Attending Unavailab Karla MOHR, ZOHRA Oneil Primary Care Unavailable DANIELLE MOHR, ZOHRA Oneil Primary Care Unavailable DIDIERCOYORDY BECERRA, GUERDA Pham Attending Unavailab jackie PEÑALOZA MD, ZOHRA Oneil Primary Care Unavailable DIDIERCOYORDY BECERRA, GUERDA Pham Attending Unavailab Karla MOHR, ZOHRA Oneil Primary Care Unavailable ASHLEY CROSS MD Attending Unavailable CHERELLE BECERRA, GUERDA Pham Attending Unavailab Karla MOHR, ZOHRA Oneil Primary Care Unavailable DANIELLE MOHR, ZOHRA Oneil Primary Care Unavailable MICHAEL MENJIVAR, DR AVERY Attending Unavailable MICHAEL MENJIVAR, DR AVERY Attending Unavailable DANIELLE MOHR, ZOHRA Oneil Primary Care Unavailable DANIELLE MOHR, ZOHRA Oneil Primary Care Unavailable DIDIERCOYORDY BECERRA, GUERDA Pham Attending Unavailab Karla MOHR, ZOHRA Oneil Primary Care Unavailable ASHLEY CROSS MD Attending Unavailable DANIELLE MOHR, ZOHRA Oneil Primary Care Unavailable ASHLEY CROSS MD Attending Unavailable DANIELLE MOHR, ZOHRA Oneil Primary Care Unavailable ASHLEY CROSS MD Attending Unavailable Allergies Allergy Classification Reported Allergen(s) Allergy Type Date of Onset Reaction(s) Facility (20 sources) Ciprofloxacin; Translations: [ciprofloxacin] Drug Allergy 01-20-20 20 Dizziness (finding), GI Upset, Other: See Comments, Intolerance [facility] (20 sources) Clindamycin; Translations: [clindamycin] Drug Allergy 01-20-20 20 Nausea (finding), GI Upset [facility] (20 sources) Dicloxacillin; Translations: [dicloxacillin] Drug Allergy [facility] (20 sources) Iodine; Translations: [iodine topical] Drug Allergy 03-29-20 09 Eruption of skin (disorder), Rash, Hives [facility] (20 sources) levoFLOXacin; Translations: [levofloxacin] Drug Allergy 01-20-20 20 Insomnia (disorder), Nausea (finding), Abdominal pain (finding), GI Upset, Intolerance [facility] (20 sources) Penicillin; Translations: [penicillins] Drug Allergy 03-29-20 09 hives [facility] (20 sources) Penicillin V; Translations: [penicillin V potassium] Drug Allergy Eruption of skin (disorder) [facility] (20 sources) Simvastatin; Translations: [simvastatin] Drug Allergy 01-20-20 20 Muscle pain (finding), Myalgia [facility] (2 sources) Erythromycin Drug Allergy 08-21-19 98 [facility] Work Phone: (2 sources) Iodine Drug Allergy 08-21-19 98 [facility] Work Phone: (2 sources) Penicillin Drug Allergy 08-21-19 98 [facility] Work Phone: (2 sources) Vancomycin Drug Allergy 08-21-19 98 [facility] Work Phone: (2 sources) Dicoxacillin [Other] Propensity to adverse reactions 08-21-19 98 [facility] Work Phone: (1 source) OTHER; Translations: [OTHER] Propensity to adverse reactions (disorder) 08-21-19 98 [facility] (1 source) Penicillins Drug Allergy 05-08-20 18 [facility] Iodinated Contrast Media Drug Allergy 01-20-20 20 Rash [facility] (7 sources) Sulfamethoxazole / Trimethoprim; Translations: [sulfamethoxazole-t rimethoprim] Drug Allergy Nausea (finding) [facility] Medications Current Medications Medication Drug Class(es) Dates Sig (Normalized) Sig (Original) acetaminophen 325 mg / HYDROcodone bitartrate 5 mg oral tablet (20 sources) Opioid Agonist Start: 11-14-2023 End: 12-14-2023 take 1 tablet by mouth four times daily as needed for pain Pengilly 325- 5 mg oral tablet Dose = 1 tab(s), Oral, QID, PRN for pain, # 12 tab(s), 0 Refill(s), 57.1 Start Date: 11/24/23 Status: Ordered Completed/Discontinued Medications Medication Drug Class(es) Dates Sig (Normalized) Sig (Original) bacitracin 0.5 unt/mg topical ointment (6 sources) Start: 08-23-2023 bacitracin topical ointment Apply 1 aruna, Topical, Daily, 0 Refill(s), Ointment, 59.5 Start Date: 08/23/23 Status: Ordered calcium polycarbophil 625 mg oral tablet (2 sources) Start: 08-27-2002 FIBERCON 625MG TABLET take 1 tablet daily 30 0 08/27/2002 Active Problems Active Problems Problem Classification Problem Date Documented Date Episodic/Chronic Abdominal hernia (20 sources) Hernia of anterior abdominal wall 01-12-2022 Episodic Acquired foot deformities (20 sources) Hammer toe; Translations: [Other hammer toe(s) (acquired), unspecified foot] Onset: 03-21-2022 03-21-2022 Chronic Acute and unspecified renal failure (1 source) Acute renal failure syndrome; Translations: [Acute kidney failure, unspecified] Onset: 08-21-2023 Episodic Acute bronchitis (3 sources) Acute bronchitis; Translations: [Acute bronchitis, unspecified] Onset: 08-21-2023 Episodic Cardiac dysrhythmias (20 sources) Atrial fibrillation; Translations: [Permanent atrial fibrillation] Onset: 09-02-2003 10-07-2019 Chronic Cataract (20 sources) Cataract; Translations: [Cataract of left eye] Onset: 10-29-2020 01-12-2022 Chronic Chronic ulcer of skin (1 source) 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; Translations: [Non-pressure chronic ulcer of other part of right 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] Chronic Complications of surgical procedures or medical care (2 sources) Disruption of wound, unspecified, initial encounter; Translations: [Disruption of wound, unspecified, initial encounter] Onset: 09-28-2023 Episodic Conditions associated with dizziness or vertigo (20 sources) Labyrinthitis; Translations: [Vertigo] 09-08-2022 Episodic Conduction disorders (20 sources) Cardiac pacemaker in situ; 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] Onset: 09-02-2003 09-02-2021 Chronic Past or Other Problems Problem Classification Problem Date Documented Da te Episodic/Chronic Other connective tissue disease (2 sources) Other specified soft tissue disorders; Translations: [Other specified soft tissue disorders] Onset: 08-21-2023 Episodic Other infections; including parasitic (1 source) Disorder due to infection; Translations: [Unspecified infectious disease] Onset: 12-06-2021 Episodic Residual codes; unclassified (1 source) History of drug therapy; Translations: [Personal history of other drug therapy] Onset: 12-06-2021 Episodic Unclassified (1 source) [place]ON [place] Onset: 04-27-2017 Results Test Name Value Interpretation Reference Range Facil ity Vital Signs Date Time Vital Sign Value Performing Clinician Facility 11-26-2023 15:45-0500 Body temperature 97.52 [degF] SHERRELL SHAH 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 [facility] 11-26-2023 15:45-0500 Diastolic Blood Pressure Non-Invasive 85 mm[Hg] SHERRELL SHAH 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 [facility] 11-26-2023 15:45-0500 Heart rate 76 /min SHERRELL SHAH 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 [facility] 11-26-2023 15:45-0500 Reason For Taking VItal Signs SHERRELL SHAH APRN-YARDAGE CONTROL OPERATOR [employer] [facility] 11-26-2023 15:45-0500 Respiratory rate 18 /min SHERRELL SHAH 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 [facility] 11-26-2023 15:45-0500 Systolic Blood Pressure Non-Invasive 136 mm[Hg] SHERRELL SHAH 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 [facility] 11-26-2023 11:12-0500 Body temperature 97.34 [degF] SHERRELL SHAH 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 [facility] 11-26-2023 11:12-0500 Diastolic Blood Pressure Non-Invasive 85 mm[Hg] SHERRELL SHAH 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 [facility] 11-26-2023 11:12-0500 Heart rate 67 /min SHERRELL SHAH 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 [facility] 11-26-2023 11:12-0500 Reason For Taking VItal Signs SHERRELL SHAH 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 [facility] 11-26-2023 11:12-0500 Respiratory rate 18 /min SHERRELL SHAH 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 [facility] 11-26-2023 11:12-0500 Systolic Blood Pressure Non-Invasive 141 mm[Hg] SHERRELL SHAH 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 [facility] 11-26-2023 07:18-0500 Body temperature 98.24 [degF] SHERRELL SHAH 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 [facility] 11-26-2023 07:18-0500 Diastolic Blood Pressure Non-Invasive 75 mm[Hg] SHERRELL SHAH 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 [facility] 11-26-2023 07:18-0500 Heart rate 56 /min SHERRELL SHAH 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 [facility] 11-26-2023 07:18-0500 Reason For Taking VItal Signs SHERRELL SHAH 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 [facility] 11-26-2023 07:18-0500 Respiratory rate 16 /min SHERRELL SHAH 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 [facility] 11-26-2023 07:18-0500 Systolic Blood Pressure Non-Invasive 131 mm[Hg] SHERRELL SHAH 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 [facility] 11-26-2023 04:50-0500 Heart rate 65 /min SHERRELL SHAH 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 [facility] 11-26-2023 01:37-0500 Heart rate 66 /min SHERRELL SHAH 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 [facility] 11-25-2023 23:06-0500 Heart rate 64 /min SHERRELL SHAH 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 [facility] 11-24-2023 06:18-0500 Body height 157.5 cm SHERRELL SHAH 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 [facility] 11-24-2023 06:18-0500 Body weight 57.1 kg SHERRELL SHAH 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 [facility] 11-24-2023 06:18-0500 Body weight 23.02 kg/m2 SHERRELL SHAH 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 [facility] 08-23-2023 12:09-0400 Body temperature 98.06 [degF] SHERRELL SHAH 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 [facility] 08-23-2023 12:09-0400 Diastolic Blood Pressure Non-Invasive 78 1 SHERRELL SHAH 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 [facility] 08-23-2023 12:09-0400 Heart rate 65 /min SHERRELL SHAH 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 [facility] 08-23-2023 12:09-0400 Reason For Taking VItal Signs SHERRELL SHAH APRN-YARDAGE CONTROL OPERATOR [employer]MING [facility] 08-23-2023 12:09-0400 Respiratory rate 20 /min SHERRELL SHAH 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 [facility] 08-23-2023 12:09-0400 Systolic Blood Pressure Non-Invasive 143 1 SHERRELL SHAH 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 [facility] 08-23-2023 06:23-0400 Body temperature 98.06 [degF] SHERRELL SHAH 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 [facility] 08-23-2023 06:23-0400 Diastolic Blood Pressure Non-Invasive 64 1 SHERRELL SHAH 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 [facility] 08-23-2023 06:23-0400 Heart rate 56 /min SHERRELL SHAH 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 [facility] 08-23-2023 06:23-0400 Respiratory rate 20 /min SHERRELL SHAH 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 [facility] 08-23-2023 06:23-0400 Systolic Blood Pressure Non-Invasive 148 1 SHERRELL SHAH 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 [facility] 08-23-2023 02:49-0400 Body temperature 97.34 [degF] SHERRELL SHAH 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 [facility] 08-23-2023 02:49-0400 Diastolic Blood Pressure Non-Invasive 64 1 SHERRELL SHAH 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 [facility] 08-23-2023 02:49-0400 Heart rate 60 /min SHERRELL SHAH 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 [facility] 08-23-2023 02:49-0400 Reason For Taking VItal Signs SHERRELL SHAH 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 [facility] 08-23-2023 02:49-0400 Respiratory rate 18 /min SHERRELL FOITH 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 [facility] 08-23-2023 02:49-0400 Systolic Blood Pressure Non-Invasive 141 1 SHERRELL ALYSSA 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 [facility] 08-22-2023 23:41-0400 Heart rate 56 /min SHERRELL ALYSSA 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 [facility] 08-22-2023 23:41-0400 Reason For Taking VItal Signs SHERRELL SHAH 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 [facility] 08-22-2023 19:53-0400 Heart rate 61 /min SHERRELL YOSSIITH 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 [facility] 08-22-2023 16:07-0400 Heart rate 74 /min SHERRELL ALYSSA 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 [facility] 08-22-2023 12:03-0400 Heart rate 67 /min SHERRELL YOSSIITH 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 [facility] 08-21-2023 16:15-0400 Heart rate 59 /min SHERRELL YOSSIITH 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 [facility] 08-21-2023 11:30-0400 Heart rate 59 /min SHERRELL YOSSIITH 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 [facility] 08-21-2023 04:02-0400 Body height 157 cm SHERRELL YOSSIITH 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 [facility] 08-21-2023 04:02-0400 Body weight 59.5 kg SHERRELL YOSSIITH 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 [facility] 08-21-2023 04:02-0400 Body weight 24.14 kg/m2 SHERRELL ALYSSA 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 [facility] 08-21-2023 03:34-0400 Blood Pressure Cuff Size SHERRELL SYTIFFANY 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 [facility] 08-21-2023 03:34-0400 Blood Pressure Location SHERRELL ALYSSA 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 [facility] 08-21-2023 03:34-0400 Blood Pressure Method SHERRELL SHAH 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 [facility] 08-21-2023 00:01-0400 Body height 157 cm SHERRELL ALYSSA 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 [facility] 08-21-2023 00:01-0400 Body weight 59 kg SHERRELL ALYSSA 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 [facility] 11-18-2022 18:27-0500 Diastolic Blood Pressure Non-Invasive 77 1 ROSENDO REICHFIELD DO [facility] 11-18-2022 18:27-0500 Heart rate 59 /min ROSENDO REICHFIELD DO [facility] 11-18-2022 18:27-0500 Respiratory rate 19 /min ROSENDO REICHFIELD DO [facility] 11-18-2022 18:27-0500 Systolic Blood Pressure Non-Invasive 157 1 ROSENDO REICHFIELD DO [facility] 11-18-2022 16:57-0500 Blood Pressure Location ROSENDO REICHFIELD DO [facility] 11-18-2022 16:57-0500 Blood Pressure Method ROSENDO REICHFIELD D O [facility] 11-18-2022 16:57-0500 Body temperature 97.7 [degF] ROSENDO REICHFIELD DO [facility] 11-18-2022 16:57-0500 Diastolic Blood Pressure Non-Invasive 79 1 ROSENDO REICHFIELD DO [facility] 11-18-2022 16:57-0500 Heart rate 64 /min ROSENDO REICHFIELD DO [facility] 11-18-2022 16:57-0500 Respiratory rate 20 /min ROSENDO REICHFIELD DO [facility] 11-18-2022 16:57-0500 Systolic Blood Pressure Non-Invasive 154 1 ROSENDO REICHFIELD DO [facility] 08-08-2022 16:25-0400 Body temperature 97.5 [degF] Vicky Chisholm DO Work Phone: [facility] 08-08-2022 16:25-0400 Body weight 58.97 kg Vicky Chisholm DO Work Phone: [facility] 08-08-2022 16:25-0400 Diastolic blood pressure 82 mm[Hg] Vicky Chisholm DO Work Phone: [facility] 08-08-2022 16:25-0400 Heart rate 86 /min Vicky Chisholm DO Work Phone: [facility] 08-08-2022 16:25-0400 Respiratory rate 18 /min Vicky Chisholm DO Work Phone: [facility] 08-08-2022 16:25-0400 SaO2% (BldA) [Mass fraction] 97 % Vicky Chisholm DO Work Phone: [facility] 08-08-2022 16:25-0400 Systolic blood pressure 152 mm[Hg] Vicky Chisholm DO Work Phone: [facility] 08-03-2022 17:01-0400 Body weight 59.42 kg Nicole Link MD Work Phone: [facility] 08-03-2022 17:01-0400 Diastolic blood pressure 90 mm[Hg] Nicole Link MD Work Phone: [facility] 08-03-2022 17:01-0400 Heart rate 60 /min Nicole Link MD Work Phone: [facility] 08-03-2022 17:01-0400 Respiratory rate 16 /min Nicole Link MD Work Phone: [facility] 08-03-2022 17:01-0400 SaO2% (BldA) [Mass fraction] 96 % Nicole Link MD Work Phone: [facility] 08-03-2022 17:01-0400 Systolic blood pressure 130 mm[Hg] Nicole Link MD Work Phone: [facility] 04-03-2022 11:50-0400 Body temperature 98.42 [degF] RAYNE SALAS MD [facility] 04-03-2022 11:50-0400 Diastolic blood pressure 77 mm[Hg] RAYNE SALAS MD [facility] 04-03-2022 11:50-0400 Heart rate 61 /min RAYNE SALAS MD [facility] 04-03-2022 11:50-0400 Respiratory rate 18 /min RAYNE SALAS MD [facility] 04-03-2022 11:50-0400 Systolic blood pressure 160 mm[Hg] RAYNE SALAS MD [facility] 10-31-2021 18:38-0500 Diastolic blood pressure 52 mm[Hg] KURT BANEGAS MD [facility] 10-31-2021 18:38-0500 Heart rate 85 /min KURT BANEGAS MD [facility] 10-31-2021 18:38-0500 Respiratory rate 16 /min KURT BANEGAS MD [facility] 10-31-2021 18:38-0500 Systolic blood pressure 155 mm[Hg] KURT BANEGAS MD [facility] 10-31-2021 16:23-0500 Body temperature 98.78 [degF] KURT BANEGAS MD [facility] 10-31-2021 16:23-0500 Body weight 63.7 kg KURT BANEGAS MD [facility] 10-31-2021 16:23-0500 Diastolic blood pressure 98 mm[Hg] KURT BANEGAS MD [facility] 10-31-2021 16:23-0500 Heart rate 84 /min KURT BANEGAS MD [facility] 10-31-2021 16:23-0500 Respiratory rate 16 /min KURT BANEGAS MD [facility] 10-31-2021 16:23-0500 Systolic blood pressure 163 mm[Hg] KURT BANEGAS MD [facility] 10-18-2021 06:14-0500 Body temperature 98.78 [degF] DR RYAN MOYA MD [facility] 10-18-2021 06:14-0500 Diastolic blood pressure 86 mm[Hg] DR RYAN MOYA MD [facility] 10-18-2021 06:14-0500 Heart rate 77 /min DR RYAN MOYA MD [facility] 10-18-2021 06:14-0500 Respiratory rate 16 /min DR RYAN MOYA MD [facility] 10-18-2021 06:14-0500 Systolic blood pressure 177 mm[Hg] DR RYAN MOYA MD [facility] 09-12-2021 19:49-0500 Body height 157.5 cm PRABHU LINDSAY MD [facility] 09-12-2021 19:49-0500 Body temperature 98.42 [degF] PRABHU LINDSAY MD [facility] 09-12-2021 19:49-0500 Body weight 60.5 kg PRABHU LINDSAY MD [facility] 09-12-2021 19:49-0500 Diastolic blood pressure 90 mm[Hg] PRABHU LINDSAY MD [facility] 09-12-2021 19:49-0500 Heart rate 62 /min PRABHU LINDSAY MD [facility] 09-12-2021 19:49-0500 Mean blood pressure 110 mm[Hg] PRABHU LINDSAY MD [facility] 09-12-2021 19:49-0500 Respiratory rate 18 /min PRABHU LINDSAY MD [facility] 09-12-2021 19:49-0500 Systolic blood pressure 151 mm[Hg] PRABHU LINDSAY MD [facility] Encounters Encounter Date Encounter Type Care Provider Facility Start: 11-24-2023 End: 11-26-2023 Evaluation and management of inpatient SHERRELL SHAH 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 [facility] Start: 11-21-2023 ambulatory ZOHRA PEÑALOZA MD Faci lity:B Start: 11-21-2023 End: 11-25-2023 Outreach Lab ZOHRA PEÑALOZA MD [facility] Start: 11-21-2023 End: 11-22-2023 ambulatory ZOHRA PEÑALOZA MD Facility:A Start: 11-12-2023 End: 11-17-2023 ambulatory ZOHRA PEÑALOZA MD Facility:B Start: 11-12-2023 End: 11-16-[address] KRYS TAYLOR DO [facility] Start: 11-07-2023 End: 11-08-2023 ambulatory ZOHRA PEÑALOZA MD Facility:A Start: 11-07-2023 End: 11-07-2023 Wound Care Center ASHLEY CROSS MD [facility] Start: 11-06-2023 ambulatory ZOHRA PEÑALOZA MD Faci lity:B Start: 10-31-2023 End: 11-01-2023 ambulatory ZOHRA PEÑALOZA MD Facility:A Start: 10-24-2023 End: 10-25-2023 ambulatory ZOHRA PEÑALOZA MD Facility:A Start: 10-19-2023 End: 10-20-2023 ambulatory ZOHRA PEÑALOZA MD Facility:A Start: 10-19-2023 End: 10-19-2023 Wound Care Center ASHLEY CROSS MD [facility] Start: 10-16-2023 End: 10-17-2023 ambulatory ZOHRA PEÑALOZA MD Facility:A Start: 10-12-2023 End: 10-13-2023 ambulatory ZOHRA PEÑALOZA MD Facility:A Start: 10-10-2023 End: 10-11-2023 ambulatory ZOHRA PEÑALOZA MD Facility:B Start: 10-09-2023 End: 10-10-2023 ambulatory ZOHRA PEÑALOZA MD Facility:A Start: 10-08-2023 End: 11-08-2023 ambulatory ZOHRA PEÑALOZA MD Facility:A Start: 10-05-2023 End: 10-06-2023 ambulatory ZOHRA PEÑALOZA MD Facility:A Start: 10-02-2023 End: 10-03-2023 ambulatory ZOHRA PEÑALOZA MD Facility:A Start: 10-02-2023 End: 10-02-2023 Wound Care Center ASHLEY CROSS MD [facility] Start: 09-28-2023 End: 10-03-2023 ambulatory ZOHRA PEÑALOZA MD Facility:A Start: 09-28-2023 End: 09-29-2023 ambulatory ZOHRA PEÑALOZA MD Facility:A Start: 09-28-2023 End: 09-28-2023 Wound Care Center ASHLEY CROSS MD [facility] Start: 09-25-2023 End: 09-26-2023 ambulatory ZOHRA PEÑALOZA MD Facility:A Start: 09-19-2023 End: 09-20-2023 ambulatory ZOHRA PEÑALOZA MD Facility:A Start: 09-18-2023 End: 09-19-2023 ambulatory ZOHRA PEÑALOZA MD Facility:B Start: 09-12-2023 End: 09-13-2023 ambulatory ZOHRA PEÑALOZA MD Facility:A Start: 08-23-2023 ambulatory ZOHRA PEÑALOZA MD Faci lity:A Start: 08-21-2023 End: 08-23-2023 ambulatory ZOHRA PEÑALOZA MD Facility:B Start: 08-20-2023 End: 08-23-2023 Observation SHERRELL ALYSSA [facility] Start: 07-31-2023 End: 08-01-2023 ambulatory ZOHRA PEÑALOZA MD Facility:A Start: 07-31-2023 End: 07-31-2023 Wound Care Center GUERDA VELÁSQUEZCOLA DPM [facility] Start: 07-19-2023 End: 07-20-2023 ambulatory ZOHRA PEÑALOZA MD Facility:A Start: 07-19-2023 End: 07-19-2023 Wound Care Center GUERDA VELÁSQUEZCOLA DPM [facility] Start: 07-13-2023 End: 07-14-2023 ambulatory ZOHRA PEÑALOZA MD Facility:A Start: 07-13-2023 End: 07-13-2023 Wound Care Center GUERDA VELÁSQUEZCOLA DPM [facility] Start: 07-12-2023 End: 07-13-2023 ambulatory ZOHRA PEÑALOZA MD Facility:A Start: 07-12-2023 End: 07-12-2023 Wound Care Center GUERDA VELÁSQUEZCOLA DPM [facility] Start: 07-06-2023 End: 07-07-2023 ambulatory ZOHRA PEÑALOZA MD Facility:A Start: 07-06-2023 End: 07-06-[address] BRITTNY DE LEON [facility] Start: 07-03-2023 ambulatory ZOHRA PEÑALOZA MD Faci lity:A Start: 06-28-2023 End: 06-29-2023 ambulatory ZOHRA PEÑALOZA MD Facility:A Start: 06-28-2023 End: 06-28-2023 Wound Care Center GUERDA K DIDIERCOLA DPM [facility] Start: 06-21-2023 End: 06-22-2023 ambulatory ZOHRA PEÑALOZA MD Facility:A Start: 06-21-2023 End: 06-21-2023 Wound Care Center GUERDA K LASCOLA DPM [facility] Start: 06-14-2023 End: 06-15-2023 ambulatory ZOHRA PEÑALOZA MD Facility:A Start: 06-14-2023 End: 06-14-2023 Wound Care Center GUERDA K LASCOLA DPM [facility] Start: 06-07-2023 End: 06-07-2023 Patient encounter procedure GUERDA K LASCOLA DPM [facility] Start: 06-07-2023 End: 06-08-2023 ambulatory GUERDA K LASCOLA DPM Facility:A Start: 05-31-2023 End: 06-01-2023 ambulatory GUERDA K LASCOLA DPM Facility:A Start: 05-24-2023 End: 05-25-2023 ambulatory GUERDA K LASCOLA DPM Facility:A Start: 05-24-2023 End: 05-24-2023 Wound Care Center GUERDA K LASCOLA DPM [facility] Start: 05-18-2023 End: 05-19-2023 ambulatory GUERDA VILLARREAL DPM Facility:A Start: 05-15-2023 End: 05-16-2023 ambulatory GABY SR MD Facility:B Start: 05-15-2023 End: 05-15-2023 Patient encounter procedure GAYB SR MD [facility] Start: 05-14-2023 ambulatory GUERDA K DIDIERCOLA DPM F acility:A Start: 05-10-2023 End: 05-11-2023 ambulatory GUERDA Vero DIDIERCOYORDY DPM Facility:A Start: 05-07-2023 End: 06-15-2023 ambulatory ZOHRA PEÑALOZA MD Facility:A Start: 05-03-2023 End: 05-04-2023 ambulatory GUERDA VELÁSQUEZCOYORDY DPM Facility:A Start: 05-03-2023 End: 05-03-2023 Wound Care Center GUERDA CHILDERSYORDY DPM [facility] Start: 04-26-2023 End: 04-27-[address] BENNIE RODRIGUEZ DO Facility:A Start: 04-26-2023 End: 04-26-[address] BENNIE RODRIGUEZ DO [facility] Start: 04-25-2023 ambulatory GUERDA Vero DIDIERCOYORDY DPM F acility:A Start: 04-24-2023 End: 04-25-2023 ambulatory ZOHRA PEÑALOZA MD Facility:B Start: 04-24-2023 End: 04-24-2023 Patient encounter procedure ZOHRA PEÑALOZA MD [facility] Start: 04-19-2023 End: 04-20-2023 ambulatory GUERDA VELÁSQUEZCOLA DPM Facility:A Start: 04-19-2023 End: 04-19-2023 Wound Care Center GUERDA VELÁSQUEZCOLA DPM [facility] Start: 04-10-2023 End: 04-11-2023 ambulatory GUERDA VILLARREAL DPM Facility:A Start: 04-10-2023 End: 04-10-2023 Wound Care Center GUERDA VILLARREAL DPM [facility] Start: 04-09-2023 ambulatory GUERDA VILLARREAL DPM F acility:A Start: 04-04-2023 End: 04-05-2023 ambulatory ZOHRA PEÑALOZA MD Facility:A Start: 04-04-2023 End: 04-04-2023 Wound Care Center GUERDA VILLARREAL DPM [facility] Start: 03-30-2023 ambulatory ZHORA PÑEALOZA MD Faci lity:A Start: 03-29-2023 End: 03-30-2023 ambulatory ZOHRA PEÑALOZA MD Facility:A Start: 03-29-2023 End: 03-29-[address] BENNIE RODRIGUEZ DO [facility] Start: 03-23-2023 ambulatory GUERDA VELÁSQUEZCOYORDY DPM F acility:A Start: 03-22-2023 End: 03-23-2023 ambulatory GUERDA VILLARREAL DPM Facility:A Start: 03-16-[address] BENNIE RODRIGUEZ DO Faci lity:A Start: 03-15-2023 End: 03-16-[address] BENNIE RODRIGUEZ DO Facility:A Start: 03-09-2023 ambulatory ZOHRA PEÑALOZA MD Faci lity:A Start: 03-08-2023 End: 03-09-2023 ambulatory ZOHRA PEÑALOZA MD Facility:A Start: 03-08-2023 End: 03-08-[address] BENNIE RODRIGUEZ DO [facility] Start: 03-02-2023 ambulatory ZOHRA PEÑALOZA MD Faci lity:A Start: 03-01-2023 End: 03-02-2023 ambulatory ZOHRA PEÑALOZA MD Facility:A Start: 03-01-2023 End: 03-01-2023 Wound Care Center GUERDA VILLARREAL DPM [employer] [facility] Start: 02-28-2023 End: 03-01-2023 ambulatory MANUEL HOUSE MD Facility:B Start: 02-28-2023 End: 02-28-2023 Patient encounter procedure ANTHONY KANG YARDAGE CONTROL OPERATOR FORMING [facility] Start: 02-22-2023 End: 02-23-2023 ambulatory ZOHRA PEÑALOZA MD Facility:A Start: 02-22-2023 End: 02-22-2023 Wound Care Center GUERDA CHILDERSLA DPM [facility] Start: 02-15-2023 End: 02-16-2023 ambulatory ZOHRA PEÑALOZA MD Facility:A Start: 02-15-2023 End: 02-15-2023 Wound Care Center GUERDA VILLARREAL DPM [facility] Start: 02-08-2023 End: 02-09-2023 ambulatory ZOHRA PEÑALOZA MD Facility:A Start: 02-08-2023 End: 02-08-2023 Wound Care Center GUERDA VILLARREAL DPM [facility] Start: 02-01-2023 End: 02-02-2023 ambulatory ZOHRA PEÑALOZA MD Facility:A Start: 02-01-2023 End: 02-01-2023 Wound Care Center [facility]AL [facility] Start: 11-23-2022 End: 11-27-2022 Outreach Lab ZOHRA PEÑALOZA MD [facility] Start: 11-23-2022 End: 01-26-2023 Wound Care GUERDA VILLARREAL DPM [facility] Start: 11-18-2022 End: 11-18-2022 Emergency department patient visit ROSENDO OLIVARES DO [facility] Start: 09-16-2022 End: 09-16-2022 Patient encounter procedure SUJEY CURIEL 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 [facility] Start: 08-18-2022 End: 10-04-2022 Nutrition therapy DAYSI TRUONG 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 [facility] Start: 08-08-2022 End: 08-08-2022 Patient encounter procedure Vicky Maranda Chisholm DO Work Phone: [facility] [place] Procedures Date Procedure Procedure Detail Performing Clinician Start: 05-29-2018 Arthroplasty of knee ROSALIE LINDSAY MD Plan of Treatment Date Care Activity Detail Author Start: 11-10-2026 Urine microalbumin profile DTA P,TDAP,TD (2 - Td or Tdap) [facility] Start: 07-17-2022 COVID-19 VACCINE (5 - Booster for Moderna series) COVID-19 VACCINE (5 - Booster for Moderna series) [facility] Start: 10-29-2021 ADVANCE DIRECTIVE DISCUSSION ADVANCE DIRECTIVE DISCUSSION [facility] Start: 10-29-2021 DEPRESSION ASSESSMENT DEPRESSION ASS ESSMENT [facility] Start: 09-08-2006 DIABETES SCREEN DIABETES SCREEN [facility] Start: 2005 BONE DENSITY BONE DENSITY [facility] Start: 2005 PNEUMOCOCCAL: 65+ (1 - PCV) PNEUMOCOCCAL: 65+ (1 - PCV) [facility] Start: 1990 SHINGRIX VACCINE (1 of 2) LOPEZ GRIX VACCINE (1 of 2) [facility] Start: 1959 Urine microalbumin profile DTAP,TDAP ,TD (1 - Tdap) [facility] Immunizations Immunization Date Immunization Notes Care Provider Purnima matute 07-14-2023 influenza virus vaccine, unspecified formulation SHERRELL SHAH 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 [facility] 07-14-2023 RSV vaccine preF3, recombinant SHERRELL SHAH 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 [facility] 11-18-2022 tetanus toxoid, redu anita diphtheria toxoid, and acellular pertussis vaccine, adsorbed ROSENDO REICHFIELD DO [facility] 07-26-2022 influenza virus vaccine, unspecified formulation SUJEY CURIEL 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 [facility] 05-22-2022 COVID-19, mRNA, LNP- S, PF, 100 mcg or 50 mcg dose; Translations: [Moderna COVID-19 Vaccine] ZOHRA PEÑALOZA MD [facility] 09-30-2021 zoster vaccine recombinant MANFRED ROBLES 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 [facility] 09-07-2021 COVID-19, mRNA, LNP- S, PF, 100 mcg/ 0.5 mL dose; Translations: [Moderna COVID-19 Vaccine] PRABHU LINDSAY MD [facility] 08-16-2021 influenza virus vaccine, unspecified formulation RISHI SALES DO [facility] 04-08-2021 zoster vaccine recombinant RISHI SALES DO [facility] 12-31-2020 COVID-19, mRNA, LNP- S, PF, 100 mcg/ 0.5 mL dose; Translations: [Moderna COVID-19 Vaccine] PRABHU LINDSAY MD [facility] 12-03-2020 SARS-CoV-2 (COVID-19 ) mRNA-1273 vaccine PRABHU LINDSAY MD [facility] 07-05-2020 influenza virus vaccine, unspecified formulation PRABHU LINDSAY MD [facility] 07-08-2019 pneumococcal polysaccharide vaccine, 23 valent; Translations: [Pneumovax 23] PRABHU LINDSAY MD [facility] 07-08-2019 influenza, injectabl e, quadrivalent, preservative free; Translations: [Fluarix PF Quadrivalent ] PRABHU LINDSAY MD [facility] 07-25-2018 influenza virus vaccine, unspecified formulation PRABHU LINDSAY MD [facility] 08-20-2017 influenza virus vaccine, unspecified formulation PRABHU LINDSAY MD [facility] 08-20-2017 pneumococcal conjuga te vaccine, 13 valent PRABHU LINDSAY MD [facility] 11-10-2016 tetanus toxoid, redu anita diphtheria toxoid, and acellular pertussis vaccine, adsorbed PRABHU LINDSAY MD [facility] 07-26-2016 influenza virus vaccine, unspecified formulation PRABHU LINDSAY MD [facility] 08-17-2015 influenza virus vaccine, unspecified formulation PRABHU LINDSAY MD [facility] 08-11-2015 influenza virus vaccine, unspecified formulation PRABHU LINDSAY MD [facility] 07-29-2014 influenza virus vaccine, unspecified formulation PRABHU LINDSAY MD [facility] 08-15-2013 influenza virus vaccine, unspecified formulation PRABHU LINDSAY MD [facility] 10-29-2012 zoster vaccine, live PRABHU LINDSAY MD [facility] 09-27-2012 zoster vaccine, live PRABHU LINDSAY MD [facility] Payers Date Payer Category Payer Medicare AETNA MEDICARE A ETNA MEDICARE PPO [id number] 2021-Present [phone] [address] [place] [address] PPO [id number] 2020 Private Health Insurance [id number] 2014 Medicare [id number] 1940 Unknown [id number] 2..840.1.838157.3.579.2.6 1940 Unknown [id number] 2.16.840.1.329893.3.579.2.6 1940 Unknown [id number] 2.16.840.1.825509.3.579.2.6 1940 Unknown [id number] 2.16.840.1.065318.3.579.2.6 1940 Unknown [id number] 2.16.840.1.102414.3.579.2.6 1940 Unknown [id number] 2.16.840.1.704621.3.579.2.6 1940 Unknown [id number] 2.16.840.1.766680.3.579.2.6 1940 Unknown [id number] 2.16.840.1.681493.3.579.2.6 1940 Unknown [id number] 2.16.840.1.668094.3.579.2.6 1940 Unknown [id number] 2.16.840.1.950353.3.579.2.6 1940 Unknown [id number] 2.16.840.1.057376.3.579.2.6 1940 Unknown [id number] 2.16.840.1.445402.3.579.2.6 1940 Unknown [id number] 2.16.840.1.857345.3.579.2.6 1940 Unknown [id number] 2.16.840.1.329990.3.579.2.6 1940 Unknown [id number] 2.16.840.1.081004.3.579.2.6 1940 Unknown [id number] 2.16.840.1.311178.3.579.2.6 1940 Unknown [id number] 2.16.840.1.522722.3.579.2.6 1940 Unknown [id number] 2.16.840.1.925513.3.579.2.6 1940 Unknown [id number] 2.16.840.1.511309.3.579.2.6 1940 Unknown [id number] 2.16.840.1.641407.3.579.2.6 1940 Unknown [id number] 2.16.840.1.022778.3.579.2.6 1940 Unknown [id number] 2.16.840.1.755463.3.579.2.6 1940 Unknown [id number] 2.16.840.1.354064.3.579.2.6 1940 Unknown [id number] 2.16.840.1.014500.3.579.2.6 1940 Unknown [id number] 2.16.840.1.929011.3.579.2.6 1940 Unknown [id number] 2.16.840.1.348037.3.579.2.6 1940 Unknown [id number] 2.16.840.1.892946.3.579.2.6 1940 Unknown [id number] 2.16.840.1.106117.3.579.2.6 1940 Unknown [id number] 2.16.840.1.673806.3.579.2.6 1940 Unknown [id number] 2.16.840.1.392977.3.579.2.6 1940 Unknown [id number] 2.16.840.1.468528.3.579.2.6 1940 Unknown [id number] 2.16.840.1.914901.3.579.2.6 1940 Unknown [id number] 2.16.840.1.874676.3.579.2.6 1940 Unknown [id number] 2.16.840.1.952808.3.579.2.6 1940 Unknown [id number] 2.16.840.1.616634.3.579.2.6 1940 Unknown [id number] 2.16.840.1.657279.3.579.2.6 1940 Unknown [id number] 2.16.840.1.169420.3.579.2.6 1940 Unknown [id number] 2.16.840.1.762750.3.579.2.6 1940 Unknown [id number] 2.16.840.1.739728.3.579.2.6 1940 Unknown [id number] 2.16.840.1.212551.3.579.2.6 1940 Unknown [id number] 2.16.840.1.322105.3.579.2.6 1940 Unknown [id number] 2.16.840.1.334512.3.579.2.6 1940 Unknown [id number] 2.16.840.1.338976.3.579.2.6 1940 Unknown [id number] 2.16.840.1.640002.3.579.2.6 1940 Unknown [id number] 2.16.840.1.746512.3.579.2.6 1940 Unknown [id number] 2.16.840.1.494757.3.579.2.6 1940 Unknown [id number] 2.16.840.1.100469.3.579.2.6 1940 Unknown [id number] 2.16.840.1.241167.3.579.2.6 1940 Unknown [id number] 2.16.840.1.448239.3.579.2.6 1940 Unknown [id number] 2.16.840.1.105074.3.579.2.6 1940 Unknown [id number] 2.16.840.1.894929.3.579.2.6 1940 Unknown [id number] 2.16.840.1.774063.3.579.2.6 1940 Unknown [id number] 2.16.840.1.599065.3.579.2.6 1940 Unknown [id number] 2.16.840.1.475044.3.579.2.6 1940 Unknown [id number] 2.16.840.1.432011.3.579.2.6 1940 Unknown [id number] 2.16.840.1.150517.3.579.2.6 1940 Unknown [id number] 2.16.840.1.373493.3.579.2.6 1940 Unknown [id number] 2.16.840.1.960260.3.579.2.6 1940 Unknown [id number] 2.16.840.1.114645.3.579.2.6 1940 Unknown [id number] 2.16.840.1.757427.3.579.2.6 1940 Unknown [id number] 2.16.840.1.898176.3.579.2.6 1940 Unknown [id number] 2.16.840.1.477102.3.579.2.6 1940 Unknown [id number] 2.16.840.1.852232.3.579.2.6 1940 Unknown [id number] 2.16.840.1.751279.3.579.2.6 1940 Unknown [id number] 2.16.840.1.126730.3.579.2.6 1940 Unknown [id number] 2.16.840.1.424162.3.579.2.6 1940 Unknown [id number] 2.16.840.1.839806.3.579.2.6 27 Unknown [id number] 2.16.840.1.963794.3.579.2.2 73 Unknown [id number] 2.16.840.1.697520.3.579.2.2 73 Social History Date Type Detail Facility Start: 05-30-2019 End: 08-03-2022 Never smoked tobacco (finding) [facility] Sex Assigned At Female [facility] Start: 08-03-2022 Tobacco use and exposure Smokeless tobacco non-user [facility] Start: 1940 Sex Assigned At Not on file C [facility] Start: 07-24-2022 End: 08-08-2022 Exposure to SARS-CoV-2 (event) Not sure [facility] Functional Status Date Assessment Result Facility 11-26-2023 Functional Status Nurse Adair talavera q2hrs Performed Other: 7a-3pm [facility] 11-26-2023 Functional Status Lunch Percent 50 [facility] 11-26-2023 Functional Status Independent [facility] 11-26-2023 Functional Status [address] [facility] 11-26-2023 Functional Status Repositions self [facility] 11-26-2023 Functional Status Sequential Com pression Device bilateral knee high applied/on [facility] 11-26-[address] [facility] 11-26-[address] [facility] 11-25-[address]23 [address] [facility] 11-25-[address] [facility] 11-25-2023 Functional Status Multilevel home [facility] 11-25-2023 Functional Status Room check performed [facility] 11-25-[address] [facility] 11-24-2023 Functional Status Activity Dion tance Supervision [facility] 11-24-2023 Functional Status [facility] Kwan [facility] 11-24-2023 Functional Status Sensory Deficits None A [facility] 08-23-2023 Functional Status Nurse Adair talavera q2hrs Performed Other: 7AM-130PM [facility] 08-23-2023 Functional Status Refused [facility] 08-23-2023 Functional Status Min A [facility] 08-23-2023 Functional Status Identified as high risk, Fall ID band on, Door open, Non-Slip footwear, Room check performed [facility] 08-23-2023 Functional Status [facility] 08-23-2023 Functional Status [facility] 08-22-2023 Functional Status Up to Chair Returned to bed [facility] 08-22-2023 Functional Status [facility] 08-22-2023 Functional Status [facility] 08-22-2023 Functional Status [facility] 08-22-2023 Functional Status Breakfast Percent 50 [facility] 08-21-2023 Functional Status [facility]-21-2023 [facility] Status Lunch Percent 50 [facility] 08-21-2023 Functional Status Ambulation in Room, Up with assistance [facility] 08-21-2023 Functional Status Multilevel leydi e, 2nd floor bedroom, 2nd floor bathroom [facility] 08-21-2023 Functional Status Sensory Defici ts Hearing deficit, left ear, Hearing deficit, right ear [facility] 11-18-2022 [facility] Functional Status Standard Safet y ID band on, Call device within reach, Bed in low position, Wheels locked, Visitor at bedside, Safety level maintained [facility] 04-03-2022 Functional Status Assistive Device Cane [facility] 04-03-2022 Functional Status Standard Safet y ID band on, Call device within reach, Bed in low position, Wheels locked, Upper/Half-Length side-rails up, Bedside Cart Locked, Safety level maintained [facility] Mental Status Date Assessment Result Facility 11-26-2023 Mental Status Oriented x 4 [facility] 11-26-2023 Mental Status [facility] 11-25-2023 Mental Status [facility] 08-23-2023 Mental Status Oriented x 4 [facility] 08-22-2023 Mental Status [facility] 08-22-2023 Mental Status [facility] 08-21-2023 Mental Status [facility] 11-18-2022 Mental Status Orientation Oriented x 4 [facility] 11-18-2022 Mental Status [facility] 04-03-2022 Mental Status Orientation Oriented x 4 [facility] Clinical Notes 02-21-2021 to 11-26-2023 Note Date & Type Note Facility 11-26-2023 Hospital Discharg e instructions Patient Education 11/26/2023 12:30:02 Influenza, Adult, [id number] Influenza, Adult Influenza is also called the flu. It is an infection in the lungs, nose, and throat (respiratory tract). It is caused by a virus. The flu causes symptoms that are similar to symptoms of a cold. It also causes a high fever and body aches. The flu spreads easily from person to person (is contagious). Getting a flu shot (influenza vaccination) every year is the best way to prevent the flu. What are the causes? This condition is caused by the influenza virus. You can get the virus by: Breathing in droplets that are in the air from the cough or sneeze of a person who has the virus. Touching something that has the virus on it (is contaminated) and then touching your mouth, nose, or eyes. What increases the risk? Certain things may make you more likely to get the flu. These include: Not washing your hands often. Having close contact with many people during cold and flu season. Touching your mouth, eyes, or nose without first washing your hands. Not getting a flu shot every year. You may have a higher risk for the flu, along with serious problems such as a lung infection (pneumonia), if you: Are older than 65. Are . Have a weakened disease-fighting system (immune system) because of a disease or taking certain medicines. Have a long-term (chronic) illness, such as: ?Heart, kidney, or lung disease. ?Diabetes. ?Asthma. Have a liver disorder. Are very overweight (morbidly obese). Have anemia. This is a condition that affects your red blood cells. What are the signs or symptoms? Symptoms usually begin suddenly and last 4 14 days. They may include: Fever and chills. Headaches, body aches, or muscle aches. Sore throat. Cough. Runny or stuffy (congested) nose. Chest discomfort. Not wanting to eat as much as normal (poor appetite). Weakness or feeling tired (fatigue). Dizziness. Feeling sick to your stomach (nauseous) or throwing up (vomiting). How is this treated? If the flu is found early, you can be treated with medicine that can help reduce how bad the illness is and how long it lasts (antiviral medicine). This may be given by mouth (orally) or through an IV tube. Taking care of yourself at home can help your symptoms get better. Your doctor may suggest: Taking dvab-nvi-phtzcqk medicines. Drinking plenty of fluids. The flu often goes away on its own. If you have very bad symptoms or other problems, you may be treated in a hospital. Follow these instructions at home: Activity Rest as needed. Get plenty of sleep. Stay home from work or school as told by your doctor. ?Do not leave home until you do not have a fever for 24 hours without taking medicine. ?Leave home only to visit your doctor. Eating and drinking Take an ORS (oral rehydration solution). This is a drink that is sold at pharmacies and stores. Drink enough fluid to keep your pee (urine) pale yellow. Drink clear fluids in small amounts as you are able. Clear fluids include: ?Water. ?Ice chips. ?Fruit juice that has water added (diluted fruit juice). ?Low-calorie sports drinks. Eat bland, cdei-mg-nzrdaj foods in small amounts as you are able. These foods include: ?Bananas. ?Applesauce. ?Rice. ?Lean meats. ?[place]. ?Crackers. Do not eat or drink: ?Fluids that have a lot of sugar or caffeine. ?Alcohol. ?Spicy or fatty foods. General instructions Take wsim-lcb-rhlqsmf and prescription medicines only as told by your doctor. Use a cool mist humidifier to add moisture to the air in your home. This can make it easier for you to breathe. Cover your mouth and nose when you cough or sneeze. Wash your hands with soap and water often, especially after you cough or sneeze. If you cannot use soap and water, use alcohol-based hand kindergarten classroom teacher. Keep all follow-up visits as told by your doctor. This is important. How is this prevented? Get a flu shot every year. You may get the flu shot in late summer, fall, or winter. Ask your doctor when you should get your flu shot. Avoid contact with people who are sick during fall and winter (cold and flu season). Contact a doctor if: You get new symptoms. You have: ?Chest pain. ?Watery poop (diarrhea). ?A fever. Your cough gets worse. You start to have more mucus. You feel sick to your stomach. You throw up. Get help right away if you: Have shortness of breath. Have trouble breathing. Have skin or nails that turn a bluish color. Have very bad pain or stiffness in your neck. Get a sudden headache. Get sudden pain in your face or ear. Cannot eat or drink without throwing up. Summary Influenza ( the flu ) is an infection in the lungs, nose, and throat. It is caused by a virus. Take liah-jls-ekewngy and prescription medicines only as told by your doctor. Getting a flu shot every year is the best way to avoid getting the flu. This information is not intended to replace advice given to you by your health care provider. Make sure you discuss any questions you have with your health care provider. Document Released: 07/24/2009 Document Revised: 04/02/2019 Document Reviewed: 04/02/2019 [employer] Patient Education 2020 [employer]. 11/24/2023 04:31:59 Bronchitis, Antibiotic Treatment (Adult) Bronchitis, Antibiotic Treatment (Adult) Bronchitis is an infection of the air passages (bronchial tubes) in your lungs. It often occurs when you have a cold. This illness is contagious during the first few days and is spread through the air by coughing and sneezing, or by direct contact (touching the sick person and then touching your own eyes, nose, or mouth). Symptoms of bronchitis include cough with mucus (phlegm) and low-grade fever. Bronchitis usually lasts 7 to 14 days. Mild cases can be treated with simple home remedies. More severe infection is treated with an antibiotic. Home care Follow these guidelines when caring for yourself at home: If your symptoms are severe, rest at home for the first 2 to 3 days. When you go back to your usual activities, don't let yourself get too tired. Don't smoke. Also stay away from secondhand smoke. You may use uhct-onl-qwomhnv medicines to control fever or pain, unless another medicine was prescribed. If you have chronic liver or kidney disease or have ever had a stomach ulcer or gastrointestinal bleeding, talk with your healthcare provider before using these medicines. Also talk to your provider if you are taking medicine to prevent blood clots. Aspirin should never be given to anyone younger than 18 who is ill with a viral infection or fever. It may cause severe liver or brain damage. Your appetite may be low, so a light diet is fine. Stay well hydrated by drinking 6 to 8 glasses of fluids per day. This includes water, soft drinks, sports drinks, juices, tea, or soup. Extra fluids will help loosen mucus in your nose and lungs. Dtgf-gxv-ezmzryf cough, cold, and sore-throat medicines will not shorten the length of the illness, but they may be helpful to reduce your symptoms. Don't use decongestants if you have high blood pressure. Finish all antibiotic medicine. Do this even if you are feeling better after only a few days. Follow-up care Follow up with your healthcare provider, or as advised. If you had an X-ray or ECG (electrocardiogram), a specialist will review it. You will be told of any new test results that may affect your care. If you are age 65 or older, if you smoke, or if you have a chronic lung disease or condition that affects your immune system, ask your healthcare provider about getting a pneumococcal vaccine and a yearly flu shot (influenza vaccine). When to seek medical advice Call your healthcare provider right away if any of these occur: Fever of 100.4 F (38 C) or higher, or as directed by your healthcare provider Coughing up more sputum Weakness, drowsiness, headache, facial pain, ear pain, or a stiff neck Call 911 Call 911 if any of these occur. Coughing up blood Weakness, drowsiness, headache, or stiff neck that get worse Trouble breathing, wheezing, or pain with breathing [id number] [employer]. [address] [place] [address]. All rights reserved. This information is not intended as a substitute for professional medical care. Always follow your healthcare professional's instructions. Follow Up Care 11/24/2023 04:12:51 With:ZOHRA PEÑALOZA MD Address: [address] [place] [address]- When: Unknown With:ZOHRA PEÑALOZA MD Address: [address] [place] [address]- When:2-4 days Comments:Please call to schedule your post-hospital follow-up appointment. [facility] 11-26-2023 Note Discharge Instructions Thank you for allowing [facility] to assist you with your healthcare needs. The following is important discharge information regarding your hospital visit. Your Care Team Vicky Velasquez CNP Your Diagnosis Atrial fibrillation Hyperkalemia Hyponatremia Influenza A Pneumonia Weakness What to do next Instructions From Your Doctor You were admitted due to hyponatremia with a sodium of 126 on admission. You state that you have had low sodium for a while. It has improved today to 131. As we discussed, your medications can cause hyponatremia especially your diuretic. Low sodium can also make you feel weak. You were also diagnosed with influenza A in the ED. This diagnosis is mostly likely causing you to feel weak and tired. We started you on Tamiflu but it will just take time to get over the symptoms of influenza. You have had excellent oxygen saturations while you have been hospitalized so will be discharged home today. Please follow-up with Dr. Peñaloza in the next week or so for post-hospitalization visit. As we discussed, your urine culture (done at Dr. Peñaloza's office) does not show any sign of infection. I am unsure whether you were on the antibiotic for that or your sinus infection. You can call Dr. Peñaloza's office and ask if he wants you to continue the Cefdinir on discharge. Your INR has also been elevated. It was 3.9 today on labs. We have been holding your warfarin the last 2 days. We recommend that you hold it again today and ask the [facility] for further direction and when you need to get rechecked. It is fine to eat small, frequent meals while you are not feeling well. Make sure you are staying hydrated though. We suggest taking your water pitcher home with you so you can monitor your intake. Feel better soon! I sent in a prescription for tessalon perles. These help to control your cough. You can also buy Mucinex over the counter that helps to break up any secretions. Scheduled Follow-Up Appointments Appointment Type When With Where Contact InformationACC POC Established Patient 11/26/2023 02:30 PM [facility] [phone] ACC POC Established Patient 11/27/2023 02:00 PM [facility] [phone] PC OV Controlled Medication 02/05/2024 02:00 PM EDT ZOHRA PEÑALOZA MD [facility] Follow Up Appointments Follow Up with ZOHRA PEÑALOZA MD When Where: [address] [place] [address]- Follow Up with ZOHRA PEÑALOZA MD When Within 2-4 days Why: Please call to schedule your post-hospital follow-up appointment. Where: [address] [address]- The Following Activity and Diet Have Been Ordered for You Discharge Activity - Ordered -- Resume your pre-hospitalization activity, 11/26/23 12:25:00 EST Discharge Diet - Ordered -- No changes were made to your diet during your hospital stay. Please resume your pre hospitalization diet on discharge., 11/26/23 12:25:00 EST The Following Treatments Have Been Ordered for You Discharge Labs No qualifying data available. Discharge Radiology No qualifying data available. Other Therapies No qualifying data available. Post Acute Orders No qualifying data available. Allergies Bactrim (Nausea) Cipro (Dizziness) Dicloxacillin Sodium Iodine (hives) Levaquin (Insomnia, Nausea, Abdominal pain) ciprofloxacin (Dizziness) clindamycin (Nausea) iodine topical (Eruption) levoFLOXacin (Nausea, Abdominal pain) penicillin (hives) penicillin V potassium (Eruption) simvastatin (Muscle ache) Medications Please ask your primary doctor or pharmacist before taking any other medication not listed, including over the counter drugs, herbal medications, vitamins and or supplements as they may interact with your home medications. What How Much When Why Instructions Last Dose New oseltamivir (Tamiflu 30 mg oral capsule) 1 cap by mouth Once a day Pickup at [id number] Unchanged acetaminophen-hydrocodone (Pengilly 325- 5 mg oral tablet) 1 tab(s) by mouth Four (4) times a day as needed for for pain Unchanged amLODIPine (amLODIPine 5 mg oral tablet) 1 tab(s) by mouth Two (2) times a day Unchanged calcitriol (calcitriol 0.25 mcg oral capsule) 2 cap by mouth Sunday / Sunday / Sunday Unchanged carvedilol (carvedilol 6.25 mg oral tablet) take 1 tablet by mouth twice a day with food Unchanged docusate (Colace 100 mg oral capsule) 1 cap by mouth Two (2) times a day Unchanged fluticasone nasal (Flonase 50 mcg/ inh nasal spray) 1 spray(s) each nostril Two (2) times a day as needed for Congestion Unchanged furosemide (Lasix 40 mg oral tablet) 1 tab(s) by mouth Once a day Unchanged multivitamin with minerals (Centrum Silver oral tablet) 1 tab(s) by mouth Every day Unchanged warfarin (warfarin 5 mg oral tablet) 1 tab(s) by mouth Once a day Open knee wound Atrial fibrillation Pharmacy Information [id number]: [address] [place], [place] [id number] [phone] Please take this list to your next doctor s visit. Bring all medications you take, including over the counter medications, herbals and other supplements with you to your doctor s visit. Patients and families are reminded to discard old lists and to update any records with all medication providers or retail pharmacies. Medication Leaflets oseltamivir (os el SMITH ih veer) Tamiflu What is the most important information I should know about oseltamivir? Some people using oseltamivir have had sudden unusual changes in mood or behavior, most often in children. It is not certain that oseltamivir is the exact cause. Even without using oseltamivir, anyone with influenza can have neurologic or behavioral effects that may lead to confusion or hallucinations. Call your doctor right away if the person using this medicine has any signs of unusual thoughts or behavior. What is oseltamivir? Oseltamivir is an antiviral medication that blocks the actions of influenza virus types A and B in your body. Oseltamivir is used to treat flu symptoms caused by influenza virus in people who have had symptoms for less than 2 days. Oseltamivir may also be given to prevent influenza in people who may be exposed but do not yet have symptoms. Oseltamivir will not treat the common cold. Oseltamivir should not be used in place of getting a yearly flu shot. The Centers for Disease Control recommends an annual flu shot to help protect you each year from new strains of influenza virus. Oseltamivir may also be used for purposes not listed in this medication guide. What should I discuss with my healthcare provider before using oseltamivir? You should not use oseltamivir if you are allergic to it. Do not use oseltamivir to treat flu symptoms in a child younger than 2 weeks old. Children as young as 1 year old may use zanamivir to prevent flu symptoms. Tell your doctor if you have ever had: kidney disease (or if you are on dialysis); heart disease or chronic lung disease; a condition causing swelling or disorder of the brain; a weak immune system (caused by disease or by using certain medicine); hereditary fructose intolerance; or if you have used a nasal flu vaccine (FluMist) within the past 2 weeks. It is not known whether this medicine will harm an unborn baby. However, getting sick with influenza during can cause complications leading to defects, low weight, delivery, or stillbirth. Your doctor will decide whether you should receive oseltamivir if you are . The Centers for Disease Control and Prevention (CDC) recommends that women may receive a yearly flu vaccine to prevent influenza. Oseltamivir is not to be used in place of the yearly flu shot. It may not be safe to breast-feed while using this medicine. Ask your doctor about any risk. How should I take oseltamivir? Follow all directions on your prescription label and read all medication guides or instruction sheets. Use the medicine exactly as directed. Start taking oseltamivir as soon as possible after flu symptoms appear, such as fever, chills, muscle aches, sore throat, and runny or stuffy nose. Take the oseltamivir capsule with a full glass of water. Shake the oral suspension (liquid) before you measure a dose. Use the dosing syringe provided, or use a medicine dose-measuring device (not a kitchen spoon). Oseltamivir may be taken with food if it upsets your stomach. To treat flu symptoms: Take oseltamivir every 12 hours for 5 days. To prevent flu symptoms: Take oseltamivir every 24 hours for 10 days or as prescribed. Follow your doctor's instructions. Read and carefully follow any Instructions for Use provided with your medicine. Ask your doctor or pharmacist if you do not understand these instructions. Use this medicine for the full prescribed length of time, even if your symptoms quickly improve. Tell your doctor if your symptoms do not improve, or if they get worse. Store oseltamivir capsules at room temperature away from moisture and heat. Store oseltamivir liquid in the refrigerator but do not freeze. Throw away any unused liquid after 17 days. The liquid may also be stored at cool room temperature for up to 10 days What happens if I miss a dose? Use the medicine as soon as you can, but skip the missed dose if your next dose is due in less than 2 hours. Do not use two doses at one time. What happens if I overdose? Seek emergency medical attention or call the Poison Help line at . What should I avoid while taking oseltamivir? Do not use a nasal flu vaccine (FluMist) within 48 hours after taking oseltamivir. Oseltamivir may interfere with the drug action of FluMist, making the vaccine less effective. Follow your doctor's instructions. What are the possible side effects of oseltamivir? Get emergency medical help if you have signs of an allergic reaction (hives, difficult breathing, swelling in your face or throat) or a severe skin reaction (fever, sore throat, burning eyes, skin pain, red or purple skin rash with blistering and peeling). Some people using oseltamivir (especially children) have had sudden unusual changes in mood or behavior. It is not certain that oseltamivir is the exact cause of these symptoms. Even without using oseltamivir, anyone with influenza can have neurologic or behavioral symptoms. Call your doctor right away if the person using this medicine has: sudden confusion; tremors or shaking; unusual behavior; or hallucinations (hearing or seeing things that are not there). Common side effects may include: nausea, vomiting; headache; or pain. This is not a complete list of side effects and others may occur. Call your doctor for medical advice about side effects. You may report side effects to FDA at 1-339-ZAQ-6699. What other drugs will affect oseltamivir? Other drugs may affect oseltamivir, including prescription and whkq-ffo-cfczskt medicines, vitamins, and herbal products. Tell your doctor about all your current medicines and any medicine you start or stop using. Where can I get more information? Your pharmacist can provide more information about oseltamivir. Remember, keep this and all other medicines out of the reach of children, never share your medicines with others, and use this medication only for the indication prescribed. Every effort has been made to ensure that the information provided by [employer]. [employer]') is accurate, up-to-date, and complete, but no guarantee is made to that effect. Drug information contained herein may be time sensitive. [employer] information has been compiled for use by healthcare practitioners and consumers in the [place] and therefore [employer] does not warrant that uses outside of the [place] are appropriate, unless specifically indicated otherwise. [employer] drug information does not endorse drugs, diagnose patients or recommend therapy. [employer] drug information is an informational resource designed to assist licensed healthcare practitioners in caring for their patients and/or to serve consumers viewing this service as a supplement to, and not a substitute for, the expertise, skill, knowledge and judgment of healthcare practitioners. The absence of a warning for a given drug or drug combination in no way should be construed to indicate that the drug or drug combination is safe, effective or appropriate for any given patient. [facility] does not assume any responsibility for any aspect of healthcare administered with the aid of information [facility] provides. The information contained herein is not intended to cover all possible uses, directions, precautions, warnings, drug interactions, allergic reactions, or adverse effects. If you have questions about the drugs you are taking, check with your doctor, nurse or pharmacist. Copyright 6500-9327 [facility]. Version: 09.29. Revision Date: 07/23/2018. benzonatate (baljinder milton) What is the most important information I should know about benzonatate? Never suck or chew on a benzonatate capsule. Swallow the pill whole. Sucking or chewing the capsule may cause serious side effects. Benzonatate is not approved for use by anyone younger than 10 years old. An overdose of benzonatate can be fatal to a young child. What is benzonatate? Benzonatate is used to relieve coughing. Benzonatate is a non-narcotic cough medicine that numbs the throat and lungs, making the cough reflex less active. Benzonatate may also be used for purposes not listed in this medication guide. What should I discuss with my healthcare provider before taking benzonatate? You should not use this medicine if you are allergic to benzonatate or topical numbing medicines such as tetracaine or procaine (found in some insect bite and sunburn creams). Tell your doctor if you are or . Benzonatate is not approved for use by anyone younger than 10 years old. An overdose of benzonatate can be fatal, especially to a young child who has accidentally swallowed the medicine. How should I take benzonatate? Follow all directions on your prescription label and read all medication guides or instruction sheets. Use the medicine exactly as directed. Never suck or chew on a benzonatate capsule. Swallow the pill whole. Sucking or chewing the capsule may cause serious side effects. Store at room temperature away from moisture, heat, and light. What happens if I miss a dose? Skip the missed dose and use your next dose at the regular time. Do not use two doses at one time. What happens if I overdose? Seek emergency medical attention or call the Poison Help line at . An overdose of benzonatate can be fatal, especially to a child. Accidental has occurred in children under 10 years old. Overdose symptoms may include tremors, feeling restless, seizure (convulsions), slow heart rate, weak pulse, fainting, and slow breathing (breathing may stop). What should I avoid while taking benzonatate? Avoid eating or drinking anything while you feel numbness or tingling in your mouth or throat. What are the possible side effects of benzonatate? Stop taking this medicine and get emergency medical help if you have signs of an allergic reaction: hives; difficult breathing; swelling of your face, lips, tongue, or throat. Call your doctor at once if you have: severe drowsiness or dizziness; confusion, hallucinations. ongoing numbness or tingling in your mouth, throat, or face; numbness in your chest; a choking feeling; chills; or burning in your eyes. Some of these side effects may result from chewing or sucking on a benzonatate capsule. Common side effects may include: headache, dizziness; nausea, upset stomach; constipation; itching, rash; or stuffy nose. This is not a complete list of side effects and others may occur. Call your doctor for medical advice about side effects. You may report side effects to FDA at 6-153-TZE-8500. What other drugs will affect benzonatate? Using benzonatate with other drugs that make you drowsy can worsen this effect. Ask your doctor before using opioid medication, a sleeping pill, a muscle relaxer, or medicine for anxiety or seizures. Other drugs may affect benzonatate, including prescription and npqq-kuq-qkgpatp medicines, vitamins, and herbal products. Tell your doctor about all your current medicines and any medicine you start or stop using. Where can I get more information? Your pharmacist can provide more information about benzonatate. Remember, keep this and all other medicines out of the reach of children, never share your medicines with others, and use this medication only for the indication prescribed. Every effort has been made to ensure that the information provided by [employer]. ('[employer]') is accurate, up-to-date, and complete, but no guarantee is made to that effect. Drug information contained herein may be time sensitive. [employer] information has been compiled for use by healthcare practitioners and consumers in the [place] and therefore AKT does not warrant that uses outside of the [place] are appropriate, unless specifically indicated otherwise. Disconnect[employer] drug information does not endorse drugs, diagnose patients or recommend therapy. [employer] drug information is an informational resource designed to assist licensed healthcare practitioners in caring for their patients and/or to serve consumers viewing this service as a supplement to, and not a substitute for, the expertise, skill, knowledge and judgment of healthcare practitioners. The absence of a warning for a given drug or drug combination in no way should be construed to indicate that the drug or drug combination is safe, effective or appropriate for any given patient. [employer] does not assume any responsibility for any aspect of healthcare administered with the aid of information [employer] provides. The information contained herein is not intended to cover all possible uses, directions, precautions, warnings, drug interactions, allergic reactions, or adverse effects. If you have questions about the drugs you are taking, check with your doctor, nurse or pharmacist. Copyright 7460-2059 [facility] [employer]. Version: 08.29. Revision Date: 05/31/2023. Education Materials Influenza, Adult Influenza is also called the flu. It is an infection in the lungs, nose, and throat (respiratory tract). It is caused by a virus. The flu causes symptoms that are similar to symptoms of a cold. It also causes a high fever and body aches. The flu spreads easily from person to person (is contagious). Getting a flu shot (influenza vaccination) every year is the best way to prevent the flu. What are the causes? This condition is caused by the influenza virus. You can get the virus by: Breathing in droplets that are in the air from the cough or sneeze of a person who has the virus. Touching something that has the virus on it (is contaminated) and then touching your mouth, nose, or eyes. What increases the risk? Certain things may make you more likely to get the flu. These include: Not washing your hands often. Having close contact with many people during cold and flu season. Touching your mouth, eyes, or nose without first washing your hands. Not getting a flu shot every year. You may have a higher risk for the flu, along with serious problems such as a lung infection (pneumonia), if you: Are older than 65. Are . Have a weakened disease-fighting system (immune system) because of a disease or taking certain medicines. Have a long-term (chronic) illness, such as: ? Heart, kidney, or lung disease. ? Diabetes. ? Asthma. Have a liver disorder. Are very overweight (morbidly obese). Have anemia. This is a condition that affects your red blood cells. What are the signs or symptoms? Symptoms usually begin suddenly and last 4 14 days. They may include: Fever and chills. Headaches, body aches, or muscle aches. Sore throat. Cough. Runny or stuffy (congested) nose. Chest discomfort. Not wanting to eat as much as normal (poor appetite). Weakness or feeling tired (fatigue). Dizziness. Feeling sick to your stomach (nauseous) or throwing up (vomiting). How is this treated? If the flu is found early, you can be treated with medicine that can help reduce how bad the illness is and how long it lasts (antiviral medicine). This may be given by mouth (orally) or through an IV tube. Taking care of yourself at home can help your symptoms get better. Your doctor may suggest: Taking flkj-ydc-zlvuwdb medicines. Drinking plenty of fluids. The flu often goes away on its own. If you have very bad symptoms or other problems, you may be treated in a hospital. Follow these instructions at home: Activity Rest as needed. Get plenty of sleep. Stay home from work or school as told by your doctor. ? Do not leave home until you do not have a fever for 24 hours without taking medicine. ? Leave home only to visit your doctor. Eating and drinking Take an ORS (oral rehydration solution). This is a drink that is sold at pharmacies and stores. Drink enough fluid to keep your pee (urine) pale yellow. Drink clear fluids in small amounts as you are able. Clear fluids include: ? Water. ? Ice chips. ? Fruit juice that has water added (diluted fruit juice). ? Low-calorie sports drinks. Eat bland, elny-dh-zqjoso foods in small amounts as you are able. These foods include: ? Bananas. ? Applesauce. ? Rice. ? Lean meats. ? [place]. ? Crackers. Do not eat or drink: ? Fluids that have a lot of sugar or caffeine. ? Alcohol. ? Spicy or fatty foods. General instructions Take dtnn-kzx-ashppxx and prescription medicines only as told by your doctor. Use a cool mist humidifier to add moisture to the air in your home. This can make it easier for you to breathe. Cover your mouth and nose when you cough or sneeze. Wash your hands with soap and water often, especially after you cough or sneeze. If you cannot use soap and water, use alcohol-based hand kindergarten classroom teacher. Keep all follow-up visits as told by your doctor. This is important. How is this prevented? Get a flu shot every year. You may get the flu shot in late summer, fall, or winter. Ask your doctor when you should get your flu shot. Avoid contact with people who are sick during fall and winter (cold and flu season). Contact a doctor if: You get new symptoms. You have: ? Chest pain. ? Watery poop (diarrhea). ? A fever. Your cough gets worse. You start to have more mucus. You feel sick to your stomach. You throw up. Get help right away if you: Have shortness of breath. Have trouble breathing. Have skin or nails that turn a bluish color. Have very bad pain or stiffness in your neck. Get a sudden headache. Get sudden pain in your face or ear. Cannot eat or drink without throwing up. Summary Influenza ( the flu ) is an infection in the lungs, nose, and throat. It is caused by a virus. Take vyoy-trl-fgepahl and prescription medicines only as told by your doctor. Getting a flu shot every year is the best way to avoid getting the flu. This information is not intended to replace advice given to you by your health care provider. Make sure you discuss any questions you have with your health care provider. Document Released: 07/24/2009 Document Revised: 04/02/2019 Document Reviewed: 04/02/2019 [employer] Patient Education 2020 [employer] Bronchitis, Antibiotic Treatment (Adult) Bronchitis is an infection of the air passages (bronchial tubes) in your lungs. It often occurs when you have a cold. This illness is contagious during the first few days and is spread through the air by coughing and sneezing, or by direct contact (touching the sick person and then touching your own eyes, nose, or mouth). Symptoms of bronchitis include cough with mucus (phlegm) and low-grade fever. Bronchitis usually lasts 7 to 14 days. Mild cases can be treated with simple home remedies. More severe infection is treated with an antibiotic. Home care Follow these guidelines when caring for yourself at home: If your symptoms are severe, rest at home for the first 2 to 3 days. When you go back to your usual activities, don't let yourself get too tired. Don't smoke. Also stay away from secondhand smoke. You may use yjms-eub-fafnovy medicines to control fever or pain, unless another medicine was prescribed. If you have chronic liver or kidney disease or have ever had a stomach ulcer or gastrointestinal bleeding, talk with your healthcare provider before using these medicines. Also talk to your provider if you are taking medicine to prevent blood clots. Aspirin should never be given to anyone younger than 18 who is ill with a viral infection or fever. It may cause severe liver or brain damage. Your appetite may be low, so a light diet is fine. Stay well hydrated by drinking 6 to 8 glasses of fluids per day. This includes water, soft drinks, sports drinks, juices, tea, or soup. Extra fluids will help loosen mucus in your nose and lungs. Xmgt-ftj-aoyhwwr cough, cold, and sore-throat medicines will not shorten the length of the illness, but they may be helpful to reduce your symptoms. Don't use decongestants if you have high blood pressure. Finish all antibiotic medicine. Do this even if you are feeling better after only a few days. Follow-up care Follow up with your healthcare provider, or as advised. If you had an X-ray or ECG (electrocardiogram), a specialist will review it. You will be told of any new test results that may affect your care. If you are age 65 or older, if you smoke, or if you have a chronic lung disease or condition that affects your immune system, ask your healthcare provider about getting a pneumococcal vaccine and a yearly flu shot (influenza vaccine). When to seek medical advice Call your healthcare provider right away if any of these occur: Fever of 100.4 F (38 C) or higher, or as directed by your healthcare provider Coughing up more sputum Weakness, drowsiness, headache, facial pain, ear pain, or a stiff neck Call 911 Call 911 if any of these occur. Coughing up blood Weakness, drowsiness, headache, or stiff neck that get worse Trouble breathing, wheezing, or pain with breathing [id number] [employer]. [address] [place] [id number]. All rights reserved. This information is not intended as a substitute for professional medical care. Always follow your healthcare professional's instructions. Additional Information VACCINATE! IT SAVES LIVES! Members of the community who have not yet received the COVID-19 vaccine and would like to receive it can visit one of [facility] vaccine clinics. There are many vaccine clinic locations within the [facility]. For locations and available times, please visit https://gettheshot.coronavirus.[place].gov/. It is important to note that some COVID mobile vaccine clinics are held outdoors and may be canceled in rainy or stormy conditions. To learn more about pediatric vaccinations (ages 5-11), we invite you to visit the [facility] webpage. [email or web address].cns.org/p [email or web address]-Amosv-Ltgjefgjzac-Freq kidyjn-Ntqqk-Zfogbpiot.html To learn more about the COVID-19 vaccine, we invite you to visit the CDC website for a list of frequently asked questions.https://www.cdc.gov/co ronavirus/2019-ncov/vaccines/faq .html [employer] Patient Portal Access Instructions: Stay connected with your healthcare team and access your personal medical information anytime with the [employer] Patient Portal. Please follow the directions below to create your [employer] account: 1.Access the email account you provided upon registration to the hospital/physician office.2.Look for an invitation email from [facility].3.Open the email and access the invitation link: Accept Invitation to [employer].4.Fill in the required salas to create your account. To access your account, visit [email or web address]. Click the blue button labeled Access Patient Portal and then log in with the username and password that you created in the steps above. You will be able to view your test results, lab results, a summary of your visits, upcoming appointments and more. There is also a convenient messaging option where you can send secure messages to your provider. In addition, you will have the ability to download any documents or summaries to your computer and/or send the information securely to a physician. Remember that your healthcare information is confidential, so carefully consider who you will allow to register on the [facility] for access to your information. You can also access the [facility] on the [place] [employer] aruna. Simply click on Patient Portal and then log into your account. If you would like to receive a full copy of your medical records, please contact the [facility] Medical Records Department by calling [phone], Sunday through Sunday between 8 a.m. and 4:30 p.m. HOW TO SAFELY DISPOSE OF PRESCRIPTION MEDICATIONS Please use one of the following methods to safely dispose of your unused medications. 1.Use a drug disposal kit: the drug disposal pouch allows you to safely discard your old and unused drugs. Ask your nurse to give you one when you are discharged.2.Visit a local take-back location: Many local pharmacies and police departments have programs that collect old and unwanted prescription drugs. Call your local pharmacy or go to http://VitalsGuard.Hailo/3Y4Ps8z to find one close to you.3.Make use of household items: Use cat litter or old coffee grounds to dispose medications if other options are not available. Mix your drugs with these household products, seal them in an airtight container and throw it into the garbage. Call [facility]: [phone] to be sure your drugs can be disposed of in this way. Some medicines may require a different approach.4.Never flush your medications down the toilet. IF YOU HAVE BEEN PRESCRIBED AN OPIOID FOR PAIN If you have been prescribed an opioid (such as hydrocodone, oxycodone or morphine), it is critical to understand the possible side effects and risks of opioid pain medications. Even when taken as directed, opioids can have several side effects including: Tolerance, meaning you might need to take more of a medication for the same pain relief. Nausea, vomiting and/or constipation. Sleepiness, dizziness, dry mouth, confusion, depression or itching. Physical dependence, meaning you have withdrawal symptoms when a medication is stopped, can develop within a few days. KNOW YOUR RESPONSIBILITIES It is important to know exactly how much and how often to take the opioid pain medications you are prescribed. Never take opioids in higher amounts or more often than prescribed. Do not combine opioids with alcohol or other drugs that cause drowsiness, such as benzodiazepines, also known as benzos, including diazepam and alprazolam, muscle relaxants or sleep aids. Never sell or share prescription opioids. This is illegal. Store opioids in a secure place and out of reach of others (including children, family, friends and visitors). The last page of this document has been signed and retained as a CHART COPY. Signatures Patient Education Materials Influenza, Adult, Yhbv-gl-Bxys Bronchitis, Antibiotic Treatment (Adult) Medication Leaflets oseltamivir, benzonatate My discharge plan and instructions have been reviewed and explained to me and I,JEANINE COLLAZO understand my current condition and have read and understand these discharge instructions. I have received a written copy of the plan/instructions. If I have questions, I am aware that I should contact my doctor. Patient/Translator Interpreter Signature: Date/Time: Relationship to Patient: Witness Name/Signature: Date/Time: [facility] 11-25-2023 Note Date of Service 11/25/2023 Chief Complaint weakness, fatigue Subjective Patient seen and evaluated while sitting on the side of the bed. She states that she is feeling a little better today but reports that she feels very weak and tired. Patient reiterates that she is surprised how exhausted she feels. Patient updated that her sodium was much better today, 132. Low sodium can certainly contribute to a feeling of weakness added to influenza A infection. Patient states that her sodium always runs low but she does not remember feeling like this. Patient reminded that she has Flu A too so that is certainly contributing to the weakness. We will have PT and OT evaluate patient tomorrow. Anticipate patient will be ready for discharge home tomorrow. She denies any fever, chills, cough, shortness of breath, chest pain, abdominal pain, nausea or dysuria. All questions answered. Objective Vitals and Measurements T: 36.7 C (Oral) TMIN: 36.3 C (Oral) TMAX: 36.9 C (Oral) HR: 65 RR: 20 BP: 122/79 SpO2: 94% WT: 54.5 kg Intake and Output 7AM Yesterday to 7AM Today Intake and Output (Last 24 hours) Intake Oral Intake 840.00 Output Urine Count 6.00 Total Summary Total Intake 840.00 Total Output 0.00 Fluid Balance 840.00 Physical Exam General: No acute distress. Patient is alert, chronically ill-appearing. Skin: No rash. Skin is warm, dry and intact. HEENT: Head is normocephalic, atraumatic. Pupils are equal, round and reactive. Neck: Supple. No lymphadenopathy, thyromegaly. Lungs: Bilaterally clear but diminished without crepitation or wheeze. Unlabored. Heart: Heart is regular rhythm, S1, S2. No murmurs, gallops or rubs. Abdomen: Abdomen is soft, nontender. Bowels sounds present in all quadrants. Extremities: No clubbing, cyanosis, or edema. Peripheral pulses palpable. No calf tenderness. Neurological: Patient is awake and alert to person, place and time. Following simple commands, moving all extremities. Weight Current Weight Dosing Weight: 57.1 kg (11/24/23) Current Weight: 54.5 kg (11/25/23) Medications Medications (15) Active Scheduled: (6) amLODIPine 5 mg tablet 5 mg 1 tab(s), Oral, BID carvedilol 3.125 mg tablet 6.25 mg 2 tab(s), Oral, BIDM cefdinir 300 mg Capsule 300 mg 1 cap(s), Oral, q24h docusate sodium 100 mg Capsule 100 mg 1 cap(s), Oral, BID guaifenesin 600 mg ER 1,200 mg 2 tab(s), Oral, BID oseltamivir 30 mg capsule 30 mg 1 cap(s), Oral, qDay Continuous: (0) PRN: (9) acetaminophen 325 mg Tablet 650 mg 2 tab(s), Oral, q4h acetaminophen 325 mg Tablet 650 mg 2 tab(s), Oral, q4h acetaminophen-HYDROcodone 325-5 mg tablet 1 tab(s), Oral, QID albuterol - ipratropium 2.5 mg-0.5 mg/3 mL Inhal Loren UD 3 mL, Inhalation, q4hRT benzocaine-menthol (Cepacol Sore Throat) 15 mg-3.6mg lozenge 1 lozenge(s), Oral, q2h benzonatate 100 mg Capsule 100 mg 1 cap(s), Oral, TID calcium carbonate 500 mg Chewable 500 mg 1 tab(s), Chewed, TID melatonin 3 mg tablet 6 mg 2 tab(s), Oral, qHS ondansetron 2 mg/ 1 mL 2 mL INJ 4 mg 2 mL, IV Push, q4h Lab Results 11/25 06:00 WBC: 8.4 Hgb: 12.3 Hct: 36.4 L Platelet: 213 Neutrophil %: 64.0 Protime: 54.9 H PT International Ratio: 4.7 Glucose Level: 87 Sodium Level: 132 L Potassium Level: 4.9 BUN: 23 H Creatinine Lvl (s): 1.10 H 11/24 12:02 Protime: 55.4 H PT International Ratio: 4.7 11/24 04:37 WBC: 9.7 Hgb: 12.9 Hct: 37.3 Platelet: 259 Neutrophil %: 66.1 Glucose Level: 127 H Sodium Level: 126 L Potassium Level: 5.3 H BUN: 37 H Creatinine Lvl (s): 1.19 H Imaging Results and Diagnostics XR Chest 2 Views Result Date: November 24, 2023 Verified By: TRINITY REY MD CLINICAL STATEMENT: IMPRESSION: Mild bilateral interstitial prominence. Consider pulmonary edema versus infection/inflammation. I have personally reviewed the images of this examination and agree with the resident's findings and interpretation. EKG No qualifying data available. Assessment/Plan 1. Hyponatremia Acute, likely secondary to dehydration from poor intake, improved to 132 from 126. Patient states this is chronic. Will continue to hold diuretic. Patient administered 500 cc NS in the ED. Encourage fluid intake. Urine sodium (90) and urine osmolality (291). Serum osmolality (275). Repeat BMP in the am. 2. Weakness Acute, new onset, secondary to hyponatremia +/- Flu A. Consult placed to PT and OT to evaluate and treat. director client services following for discharge planning. 3. Hyperkalemia Acute, new onset, possibly secondary to dehydration - resolved. Repeat BMP in am. 4. Influenza A Acute, new onset. Start Tamiflu 30 mg PO qday - renally adjusted - for 5 days. Continue supportive care. 5. Pneumonia Ruled out. Patient without any leukocytosis. Fever likely secondary to influenza A. Will hold off on additional antibiotics at this point. Urine culture showing insignificant growth. Will d/c cefdinir. 6. Atrial fibrillation Chronic, persistent. Continue current home medications. Warfarin on hold due to INR 4.7. Repeat INR in am. Anticipate discharge tomorrow after PT/OT consult. DVT prophylaxis with warfarin (on hold due to INR 4.7). INR check daily. Labs, diagnostic test and progress notes reviewed as noted in HPI. Plan of care discussed with patient. All questions answered. Patient verbalizes understanding and is agreeable with plan of care. This case was discussed with collaborating physician, Dr. Amandeep Fonseca. Time Spent 35 minutes spent reviewing past diagnostic tests, reviewing lab results, vital sign trends, medical history, reviewing medications and ordering home medications, examining patient, discussed plan of care with nursing, collaborating with physician, and documenting in chart. Digitally Signed by VICKY VELASQUEZ on 11/25/2023 01:55 PM [facility] 1. Hyponatremia Acute, likely secondary to dehydration from poor intake. Patient administered 500 cc NS in the ED. Will hold off on additional IV fluids for now. Encourage PO intake. Check urine sodium and urine osmolality. Check serum osmolality. Repeat BMP in the am. 2. Hyperkalemia Acute, new onset, possibly secondary to dehydration. Repeat BMP in am. 3. Influenza A Acute, new onset. Start Tamiflu 30 mg PO BID - renally adjusted - for 5 days. Continue supportive care. 4. Pneumonia Ruled out. Patient without any leukocytosis. Fever likely secondary to influenza A. Will hold off on additional antibiotics at this point other than home Cefdinir. 5. Atrial fibrillation Chronic, persistent. Continue current home medications. Warfarin on hold due to INR 4.7. Repeat INR in am. DVT prophylaxis with warfarin. INR check daily. Code status: Full Code. Labs, diagnostic test and progress notes reviewed as noted in HPI. Plan of care discussed with patient. All questions answered. Patient verbalizes understanding and is agreeable with plan of care. This case was discussed with collaborating physician, Dr. Amandeep Fonseca. 75 minutes spent reviewing past diagnostic tests, reviewing lab results, vital sign trends, medical history, reviewing medications and ordering home medications, examining patient, discussed plan of care with nursing, collaborating with physician, and documenting in chart. Future Appointments Appointment Date:11/28/2023 02:00:00 PM Scheduled Provider: Location:[facility] Appointment Type:ACC POC Established Patient Appointment Date:02/05/2024 02:00:00 PM Scheduled Provider:ZOHRA PEÑALOZA MD Location:[facility] Appointment Type:PC OV Controlled Medication Future Scheduled Tests Radiology* CT Shoulder w/o Contrast Left 04/24/23 [facility] 01-27-2024 Note Date of Service 11/24/2023 Chief Complaint states being treated for sinus infection and bladder infectdion. last 2 evenings she cant sleep well due to excessive drainage and congestion when she lays down. She called her pcp this am and they toldher to go to the ER History of Present Illness Patient is an 83-year-old female, who follows with Dr. Zohra Peñaloza with a past medical history significant for atrial fibrillation, coronary artery disease, hypertension, pulmonary hypertension, diastolic heart failure and vertigo, presented to [facility] emergency department with the chief complaint of congestion, cough and throat pain. Patient states that she has been feeling unwell for about a week and has been on antibiotics from her PCP for about 5 days. Over the last few nights, patient has increased postnasal drip and cough productive of yellow sputum. She has been tired and has had a very poor intake. Yesterday, patient reports that she had a fever yesterday. Her PCP felt that she may have a UTI and started her on another antibiotic yesterday to cover UTI. Patientdenies any chills, shortness of breath, chest pain, abdominal pain, constipation and dysuria. In the emergency department, chest x-ray revealed mild bilateral interstitial prominence. Consider pulmonary edema versus infection/inflammation. EKG demonstrated ventricular-paced rhythm. CBC was unremarkable. BMP significant for glucose 127, sodium 126, potassium 5.3, BUN 37 and creatinine 1.19. BNP 843. Troponin negative. COVID-19, RSV and Flu B negative. Flu A positive. Patient was administered 500 cc NS, 1 gram Ceftriaxone IV and 500 mg Azithromycin IV in the ED. The case was discussed with the ED physician who recommended admission for hyponatremia and questionable pneumonia. Patient was transferred to telemetry for further evaluation and treatment. We will start Tamiflu 30 mg PO BID for 5 days to treat influenza A. We will hold off on further antibiotics for the time being as patient has no leukocytosis and is likely febrile from the Flu A. We will encourage fluid intake. Check urine sodium and urine osmolality. Check serum osmolality. Repeat CBC and BMP in the am. Patient seen and evaluated this morning while resting in bed. She states that she is very tired butcontinues to deny any shortness of breath. She is on room air this morning. Physical exam was unremarkable. She is agreeable with the current plan of care. All questions answered. Review of Systems Review of Systems: Reviewed in detail, including general health, HEENT, cardiovascular, respiratory, gastrointestinal, genitourinary, endocrine, musculoskeletal, neurologic, vascular, skin, and psychiatric. All are negative except for those listed in the History of Present Illness. Physical Exam Vitals and Measurements T: 37.1 C (Oral) TMIN: 36.3 C (Oral) TMAX: 37.9 C (Oral) HR: 76 RR: 20 BP: 142/73 SpO2: 93% HT: 157.5 cm WT: 57.1 kg BMI: 23.02 Weight Dosing Weight: 57.1 kg (11/24/23) General: No acute distress. Patient is alert, chronically ill-appearing. Skin: No rash. Skin is warm, dry and intact. HEENT: Head is normocephalic, atraumatic. Pupils are equal, round and reactive. Neck: Supple. No lymphadenopathy, thyromegaly. Lungs: Bilaterally clear but diminished without crepitation or wheeze. Unlabored. Heart: Heart is regular rhythm, S1, S2. No murmurs, gallops or rubs. Abdomen: Abdomen is soft, nontender. Bowels sounds present in all quadrants. Extremities: No clubbing, cyanosis; generalized edema noted in bilateral lower extremities. Peripheral pulses palpable. No calf tenderness. Neurological: Patient is awake and alert to person, place and time. Following simple commands, moving all extremities. Lab Results 11/24 12:02 Protime: 55.4 H PT International Ratio: 4.7 11/24 04:37 WBC: 9.7 Hgb: 12.9 Hct: 37.3 Platelet: 259 Neutrophil %: 66.1 Glucose Level: 127 H Sodium Level: 126 L Potassium Level: 5.3 H BUN: 37 H Creatinine Lvl (s): 1.19 H Imaging Results and Diagnostics XR Chest 2 Views Result Date: November 24, 2023 Verified By: TRINITY REY MD CLINICAL STATEMENT: IMPRESSION: Mild bilateral interstitial prominence. Consider pulmonary edema versus infection/inflammation. I have personally reviewed the images of this examination and agree with the resident's findings and interpretation. EKG EC11/24/23: Afib/flutter and ventricular-paced rhythm No further analysis attempted due to paced rhythm Electronic Signature: ROSENDO OLIVARES 11/24/2023 04:38:34 Assessment/Plan 1. Hyponatremia Acute, likely secondary to dehydration from poor intake. Patient administered 500 cc NS in the ED. Will hold off on additional IV fluids for now. Encourage PO intake. Check urine sodium and urine osmolality. Check serum osmolality. Repeat BMP in the am. 2. Hyperkalemia Acute, new onset, possibly secondary to dehydration. Repeat BMP in am. 3. Influenza A Acute, new onset. Start Tamiflu 30 mg PO BID - renally adjusted - for 5 days. Continue supportive care. 4. Pneumonia Ruled out. Patient without any leukocytosis. Fever likely secondary to influenza A. Will hold off on additional antibiotics at this point other than home Cefdinir. 5. Atrial fibrillation Chronic, persistent. Continue current home medications. Warfarin on hold due to INR 4.7. Repeat INRin am. DVT prophylaxis with warfarin. INR check daily. Code status: Full Code. Labs, diagnostic test and progress notes reviewed as noted in HPI. Plan of care discussed with patient. All questions answered. Patient verbalizes understanding and is agreeable with plan of care. This case was discussed with collaborating physician, Dr. Amandeep Fonseca. 75 minutes spent reviewing past diagnostic tests, reviewing lab results, vital sign trends, medicalhistory, reviewing medications and ordering home medications, examining patient, discussed plan of care with nursing, collaborating with physician, and documenting in chart. Problem List/Past Medical History Ongoing Acute bronchitis Acute sinusitis Age-related osteoporosis without current pathological fracture Anticoagulant long-term use Anticoagulated on Coumadin Arthralgia Arthralgia of multiple joints Atrial fibrillation CAD (coronary artery disease) CAD IN [place] ARTERY Cataract Cataract of left eye Cerumen impaction CHRONIC ANEMIA Chronic diastolic congestive heart failure COMPLETE HEART BLOCK Conjunctivitis DEGENERATIVE CERVICAL DISC DEGENERATIVE JOINT DISEASE DIASTOLIC HEART FAILURE OF UNKNOWN ETIOLOGY Difficulty bending to reach feet Diverticulitis DYSLIPIDEMIA Dysuria GERD (gastroesophageal reflux disease) Hammer toe Hematoma of right lower leg History of anticoagulant therapy HYPERTENSION, UNSPECIFIED (Renamed from ESSENTIAL (PRIMARY) HYPERTENSION) Hypocalcemia Infected skin tear Insomnia Knee laceration Labyrinthitis Left 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 Lower back pain Mixed hyperlipidemia Moderate mitral regurgitation Neuropathy OA (osteoarthritis) of knee Onychomycosis of toenails Open knee wound Osteoporosis PACEMAKER PARTIAL BOWEL OBSTRUCTION PERICARDITIS PERMANENT ATRIAL FIBRILLATION Post-traumatic wound infection PULMONARY HYPERTENSION Rheumatoid arthritis SHORTNESS OF BREATH Shoulder pain, right Sinusitis Skin tear of right lower leg without complication Skin tear of upper extremity SVT (supraventricular tachycardia) TEAR OF BICEPS MUSCLE (Renamed from BICEPS MUSCLE TEAR) Traumatic ecchymosis of left shoulder UNSTEADY GAIT QUESTIONABLE ETIOLOGY Upper back pain UTI (urinary tract infection) Vaginal candidiasis Valvular heart disease Ventral hernia Vertigo Historical Anemia Procedure/Surgical History Knee replacement: 05/2018 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 Hysterectomy: 1990 Pericardial effusion Insertion of programmable cardiac pacemaker Cardioversion Appendectomy Cardiac ablation using fluoroscopy guidance Medications Home Medications (9) Active amLODIPine 5 mg oral tablet 5 mg = 1 tab(s), Oral, BID calcitriol 0.25 mcg oral capsule 0.5 mcg = 2 cap(s), Oral, Sun/Sun/Sun carvedilol 6.25 mg oral tablet Centrum Silver oral tablet 1 tab(s), PO, Daily Colace 100 mg oral capsule 100 mg = 1 cap(s), Oral, BID Flonase 50 mcg/inh nasal spray 50 mcg = 1 spray(s), PRN, Nostril, each, BID Lasix 40 mg oral tablet 40 mg = 1 tab(s), Oral, qDay [place] 325- 5 mg oral tablet 1 tab(s), PRN, Oral, QID warfarin 5 mg oral tablet 5 mg = 1 tab(s), Oral, qDay Allergies Bactrim (Nausea) Cipro (Dizziness) Dicloxacillin Sodium Iodine (hives) Levaquin (Insomnia, Nausea, Abdominal pain) ciprofloxacin (Dizziness) clindamycin (Nausea) iodine topical (Eruption) levoFLOXacin (Nausea, Abdominal pain) penicillin (hives) penicillin V potassium (Eruption) simvastatin (Muscle ache) Social History Smoking Status - 12/21/2017 Never smoker Alcohol - Denies Alcohol Use, 09/06/2017 Use: Never., 03/13/2019 Employment/School Status: Retired., 07/08/2019 Home/Environment Domestic Concerns: Denies. Living situation: Home with assistance. 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 Lives In: Multilevel home. Current Home Treatments None. [facility] Financial concerns: No. Spouse Name: Michael. Marital Status: ., 01/11/2021 Nutrition/Health Type of diet: Low sodium. Appetite Good. Eating Difficulties Chewing. Enteral Feedings No. TPN Feedings No. Skin Breakdown No. Caffeine intake amount: Decaf only., 01/11/2021 Substance Abuse - Denies Substance Abuse, 09/06/2017 Use: Never., 03/13/2019 Tobacco - Denies Tobacco Use, 10/24/2018 Tobacco Use: Never (less than 100 in lifetime), Tobacco/Smoke Exposure., 05/30/2019 Family History Cancer: Mother. HTN - Hypertension: Mother and Father. Heart disease: Father. Stroke: Father. Immunizations pneumococcal 13-valent conjugate vaccine: 0 unknown unit (08/20/17) pneumococcal 23-valent vaccine(Pneumovax: 0.5 mL (07/08/19) SARS-CoV-2 (COVID-19) mRNA-1273 vaccine: 50 mcg (05/22/22) SARS-CoV-2 (COVID-19) mRNA-1273 vaccine: 50 mcg (09/07/21) SARS-CoV-2 (COVID-19) mRNA-1273 vaccine: 100 mcg (12/31/20) SARS-CoV-2 (COVID-19) mRNA-1273 vaccine: 0 unknown unit (12/03/20) tetanus/diphth/pertuss (Tdap) adult/adol: 0.5 mL (11/18/22) tetanus/diphth/pertuss (Tdap) adult/adol: 0 unknown unit (11/10/16) zoster vaccine live: 0 unknown unit (10/29/12) zoster vaccine live: 0 unknown unit (10/29/12) zoster vaccine live: 0 unknown unit (09/27/12) zoster vaccine, inactivated: 1 unknown unit (09/30/21) zoster vaccine, inactivated: 1 unknown unit (04/08/21) Code Status Code Status - Ordered -- 11/24/23 5:34:00 EST, Full Code, Constant Order Digitally Signed by VICKY VELASQUEZ on 11/24/2023 01:49 PM [facility]01-27-2024 Note ORIGINAL EXAMINATION: TWO XRAY VIEWS OF THE CHEST11/24/2023 5:04 am COMPARISON: 03/14/2022 HISTORY: ORDERING SYSTEM PROVIDED HISTORY: Reason for Exam: cough FINDINGS: Unchanged cardiac management device. Mild cardiomegaly, similar to before. No visible pneumothorax or significant pleural fluid. There is mild bilateral interstitial prominence. No large focal pulmonary consolidation. No acute osseous findings. A linear density on lateral view which extends beyond the patient is presumably external in location. IMPRESSION: Mild bilateral interstitial prominence. Consider pulmonary edema versus infection/inflammation. I have personally reviewed the images of this examination and agree with the resident's findings and interpretation. Interpreted by: Trinity Rey MD Preliminary Report By: Zelalem Ennis Electronically signed By Trinity Rey MD Dictated Date: 11/24/2023 5:07:28 AM Prelim Date: 11/24/2023 5:11:52 AM Sign Date: 11/24/2023 6:31:36 AM Ordering Provider[facility] NoteAfib/flutter and ventricular-paced rhythm No further analysis attempted due to paced rhythm Electronic Signature: ROSENDO OLIVARES DO 11/24/2023 04:38:[address] [place] [address] 01-25-2024 Note. MICRO - Microbiology PROCEDURE: Urine Culture [*1] SOURCE: Urine, Clean Catch BODY SITE: COLLECTED DATE/TIME: 11/21/2023 16:42 EST RECEIVED DATE/TIME: 11/21/2023 19:33 EST START DATE/TIME: 11/21/2023 19:33 EST FREE TEXT SOURCE: FINAL REPORTS Final Report [] Verified Date/Time/Personnel: 11/22/2023 16:05 EST <10,000 cfu/ml. No Significant growth. Sensitivity not indicated. Performing Locations *1: This test was performed at: [address], [facility] , [facility] ([place])11-14-2023 Note. MICRO - Microbiology PROCEDURE: Urine Culture [*1] SOURCE: Urine, Clean Catch BODY SITE: COLLECTED DATE/TIME: 11/12/2023 16:35 EST RECEIVED DATE/TIME: 11/12/2023 21:01 EST START DATE/TIME: 11/12/2023 21:01 EST FREE TEXT SOURCE: FINAL REPORTS Final Report [] Verified Date/Time/Personnel: 11/14/2023 07:39 EST <10,000 cfu/ml. No Significant growth. Sensitivity not indicated. PRELIMINARY REPORTS Preliminary Report [] Verified Date/Time/Personnel: 11/13/2023 09:05 EST No growth to date Performing Locations *1: This test was performed at: [address] ([place])09-30-2023 Note. MICRO - Microbiology PROCEDURE: Culture Wound Aerobic with Gram Stain [*1] SOURCE: Wound (surface) BODY SITE: Knee R COLLECTED DATE/TIME: 09/28/2023 14:20 EST RECEIVED DATE/TIME: 09/28/2023 17:33 EST START DATE/TIME: 09/28/2023 17:34 EST FREE TEXT SOURCE: FINAL REPORTS Final Report [] Verified Date/Time/Personnel: 09/30/2023 09:01 EST Moderate Staphylococcus aureus PRELIMINARY REPORTS Preliminary Report [] Verified Date/Time/Personnel: 09/29/2023 09:49 EST Moderate Staphylococcus aureus NICK to follow Final report to follow. STAINS GS [] Verified Date/Time/Personnel: 09/28/2023 18:21 EST Rare Epithelial cells 1+ Gram Positive Cocci SUSCEPTIBILITY RESULTS Staphylococcus aureus Antibiotic NICK Dilut NICK Inter Ampicillin >8 Beta Lactamase Positive Ampicillin/ <=8/4 Susceptible Sulbactam Azithromycin <=2 Susceptible Cefepime <=4 Susceptible Cefotaxime <=8 Susceptible Ceftaroline <=0.5 Susceptible Ceftriaxone <=4 Susceptible Ciprofloxacin <=1 Susceptible Clindamycin <=0.25 Susceptible Erythromycin <=0.25 Susceptible Imipenem <=4 Susceptible Levofloxacin <=1 Susceptible Meropenem <=2 Susceptible Oxacillin <=0.25 Susceptible Penicillin >2 Beta Lactamase Positive Piperacillin/ <=8 Susceptible Tazobactam Tetracycline <=4 Susceptible Trimethoprim/ <=0.5/9.5 Susceptible Sulfa Vancomycin 0.5 Susceptible Performing Locations *1: This test was performed at: [address], [facility] , [facility] ([place])08-23-2023 Hospital Discharge instructions Patient Education 08/23/2023 12:26:12 Cellulitis, Adult, [id number] Cellulitis, Adult Cellulitis is a skin infection. The infected area is often warm, red, swollen, and sore. It occurs most often in the arms and lower legs. It is very important to get treated for this condition. What are the causes? This condition is caused by bacteria. The bacteria enter through a break in the skin, such as a cut, burn, insect bite, open sore, or crack. What increases the risk? This condition is more likely to occur in people who: Have a weak body defense system (immune system). Have open cuts, hoang, bites, or scrapes on the skin. Are older than 60 years of age. Have a blood sugar problem (diabetes). Have a long-lasting (chronic) liver disease (cirrhosis) or kidney disease. Are very overweight (obese). Have a skin problem, such as: ?Itchy rash (eczema). ?Slow movement of blood in the veins (venous stasis). ?Fluid buildup below the skin (edema). Have been treated with high-energy rays (radiation). Use IV drugs. What are the signs or symptoms? Symptoms of this condition include: Skin that is: ?Red. ?Streaking. ?Spotting. ?Swollen. ?Sore or painful when you touch it. ?Warm. A fever. Chills. Blisters. How is this diagnosed? This condition is diagnosed based on: Medical history. Physical exam. Blood tests. Imaging tests. How is this treated? Treatment for this condition may include: Medicines to treat infections or allergies. Home care, such as: ?Rest. ?Placing cold or warm cloths (compresses) on the skin. Hospital care, if the condition is very bad. Follow these instructions at home: Medicines Take radb-cap-bcrkumt and prescription medicines only as told by your doctor. If you were prescribed an antibiotic medicine, take it as told by your doctor. Do not stop taking it even if you start to feel better. General instructions Drink enough fluid to keep your pee (urine) pale yellow. Do not touch or rub the infected area. Raise (elevate) the infected area above the level of your heart while you are sitting or lying down. Place cold or warm cloths on the area as told by your doctor. Keep all follow-up visits as told by your doctor. This is important. Contact a doctor if: You have a fever. You do not start to get better after 1 2 days of treatment. Your bone or joint under the infected area starts to hurt after the skin has healed. Your infection comes back. This can happen in the same area or another area. You have a swollen bump in the area. You have new symptoms. You feel ill and have muscle aches and pains. Get help right away if: Your symptoms get worse. You feel very sleepy. You throw up (vomit) or have watery poop (diarrhea) for a long time. You see red streaks coming from the area. Your red area gets larger. Your red area turns dark in color. These symptoms may represent a serious problem that is an emergency. Do not wait to see if the symptoms will go away. Get medical help right away. Call your local emergency services (911 in the [place] Do not drive yourself to the hospital. Summary Cellulitis is a skin infection. The area is often warm, red, swollen, and sore. This condition is treated with medicines, rest, and cold and warm cloths. Take all medicines only as told by your doctor. Tell your doctor if symptoms do not start to get better after 1 2 days of treatment. This information is not intended to replace advice given to you by your health care provider. Make sure you discuss any questions you have with your health care provider. Document Released: 04/02/2009 Document Revised: 03/06/2019 Document Reviewed: 03/06/2019 [employer] Patient Education 2020 [employer] TEAM. Follow Up Care 08/20/2023 23:47:23 With:ASHLEY CROSS MD, [facility], Wound Care, Wound Care Service Address: [address] [place] [phone] When: Unknown Comments:Please call to schedule patient for wound care. His office was closed and I wasn't able to schedulethis appointment for patient. [facility] 10-26-2023 Note Discharge Instructions Thank you for allowing [facility] to assist you with your healthcare needs. The following is importantdischarge information regarding your hospital visit. Your Care Team [facility] Your Diagnosis Acute bronchitis CHRIS (acute kidney injury) Chronic pain Hyponatremia Lower extremity cellulitis Wound reevaluation with or without suture removal What to do next Scheduled Follow-Up Appointments Appointment Type When Where Contact InformationACC POC Established Patient 08/24/2023 02:30 PM EDT [facility] [phone] Follow Up Appointments Follow Up with ASHLEY CROSS MD, [facility], Wound Care, Wound Care Service When Why: Please call to schedule patient for wound care. His office was closed and I wasn't able to schedule this appointment for patient. Where: [address] [place] [phone] The Following Activity and Diet Have Been Ordered for You Transfer of Care Activity - Ordered -- As instructed by therapy, 08/23/23 11:42:00 EDT Transfer of Care Diet - Ordered -- Type of Diet: Regular Diet, 08/23/23 11:42:00 EDT The Following Equipment Has Been Ordered for You Discharge Home Equipment Transfer of Care Wound Care - Ordered -- Knee, right, daily dressing changes with bacitracin and Adaptic., 08/23/23 11:42:00 EDT The Following Treatments Have Been Ordered for You Discharge Labs No qualifying data available. Discharge Radiology No qualifying data available. Other Therapies Transfer of Care OT - Ordered -- Reason for therapy: weakness, 08/23/23 11:42:00 EDT Transfer of Care PT - Ordered -- Reason for therapy: Weakness, 08/23/23 11:42:00 EDT Post Acute Orders Transfer of Care Admission Level of Care - Ordered -- Level of Care SNF, 08/23/23 11:42:40 EDT Transfer of Care Code Status - Ordered -- Full Code, Constant Order Transfer of Care Orders Electronically Signed By - Ordered -- 08/23/23 11:42:00 EDT, CORINA DELUNA APRN-ZURI Transfer of Care Prognosis - Ordered -- Fair, Patient Aware: Yes Transfer of Care Rehab Potential - Ordered -- Rehab potential fair, 08/23/23 11:42:40 EDT Allergies Cipro (Dizziness) Dicloxacillin Sodium Iodine (hives) Levaquin (Insomnia, Nausea, Abdominal pain) ciprofloxacin (Dizziness) clindamycin (Nausea) iodine topical (Eruption) levoFLOXacin (Nausea, Abdominal pain) penicillin (hives) penicillin V potassium (Eruption) simvastatin (Muscle ache) Medications Please ask your primary doctor or pharmacist before taking any other medication not listed, including over the counter drugs, herbal medications, vitamins and or supplements as they may interact withyour home medications. What How Much When Why Instructions Last Dose New bacitracin topical (bacitracin topical ointment) 1 application Topical Every day New cefuroxime (cefuroxime 500 mg oral tablet) 1 tab(s) by mouth Two (2) times a day Duration: 7 Days New loratadine (Claritin 10 mg oral tablet) 1 tab(s) by mouth Once a day Changed acetaminophen-hydrocodone (acetaminophen-hydrocodone 325 mg-5 mg oral tablet) 1 tab(s) by mouth Three (3) times a day Chronic pain Duration: 2 Days take 1 tablet by mouth every 6 hours Printed Prescription Changed amLODIPine (amLODIPine 5 mg oral tablet) 1 tab(s) by mouth Two (2) times a day Changed multivitamin (Metanx oral capsule) 1 tab(s) by mouth Every day Changed spironolactone (spironolactone 50 mg oral tablet) 1 tab(s) by mouth Once a day with a meal Changed warfarin (warfarin 3 mg oral tablet) 3 tab(s) by mouth Every Sunday Changed warfarin (warfarin 6 mg oral tablet) 1 tab(s) by mouth Every Sun/Sun//Sun//Sun Unchanged albuterol (albuterol MDI (90 mcg/ inh) CFC free inhalation aerosol) 2 puff(s) by inhalation Every 6 hours as needed for as needed for wheezing Unchanged calcitriol (calcitriol 0.25 mcg oral capsule) 1 cap by mouth Every Sun / / / Sun Unchanged calcitriol (calcitriol 0.25 mcg oral capsule) 2 cap by mouth Sunday / Sunday / Sunday Unchanged carvedilol (carvedilol 6.25 mg oral tablet) take 1 tablet by mouth twice a day with food Unchanged dapagliflozin (Farxiga 10 mg oral tablet) 1 tab(s) by mouth Once a day Unchanged docusate (Colace 100 mg oral capsule) 1 cap by mouth Two (2) times a day Unchanged fluticasone nasal (Flonase 50 mcg/ inh nasal spray) 2 spray(s) each nostril Two (2) times a day Acute bronchitis Unchanged furosemide (Lasix 40 mg oral tablet) 1 tab(s) by mouth Once a day Unchanged multivitamin with minerals (Centrum Silver oral tablet) 1 tab(s) by mouth Every day Unchanged ondansetron (Zofran 4 mg oral tablet) 1 tab(s) by mouth Every 6 hours as needed for Nausea/Vomiting What How Much When Why Comments Stop Taking diclofenac topical (Voltaren 1% topical gel) 4 gram(s) Topical Four (4) times a day as needed for Pain Osteoarthritis Duration: 30 Days Stop Taking sulfamethoxazole-trimethoprim (Bactrim DS 800 mg-160 mg oral tablet) 1 tab(s) by mouth Two (2) times a day Knee laceration Atrial fibrillation Arthralgia of multiple joints Duration: 10 Days Please take this list to your next doctor s visit. Bring all medications you take, including over the counter medications, herbals and other supplements with you to your doctor s visit. Patients and families are reminded to discard old lists and to update any records with all medication providers or retail pharmacies. Education Materials Cellulitis, Adult Cellulitis is a skin infection. The infected area is often warm, red, swollen, and sore. It occurs most often in the arms and lower legs. It is very important to get treated for this condition. What are the causes? This condition is caused by bacteria. The bacteria enter through a break in the skin, such as a cut, burn, insect bite, open sore, or crack. What increases the risk? This condition is more likely to occur in people who: Have a weak body defense system (immune system). Have open cuts, hoang, bites, or scrapes on the skin. Are older than 60 years of age. Have a blood sugar problem (diabetes). Have a long-lasting (chronic) liver disease (cirrhosis) or kidney disease. Are very overweight (obese). Have a skin problem, such as: ? Itchy rash (eczema). ? Slow movement of blood in the veins (venous stasis). ? Fluid buildup below the skin (edema). Have been treated with high-energy rays (radiation). Use IV drugs. What are the signs or symptoms? Symptoms of this condition include: Skin that is: ? Red. ? Streaking. ? Spotting. ? Swollen. ? Sore or painful when you touch it. ? Warm. A fever. Chills. Blisters. How is this diagnosed? This condition is diagnosed based on: Medical history. Physical exam. Blood tests. Imaging tests. How is this treated? Treatment for this condition may include: Medicines to treat infections or allergies. Home care, such as: ? Rest. ? Placing cold or warm cloths (compresses) on the skin. Hospital care, if the condition is very bad. Follow these instructions at home: Medicines Take czmj-bmy-[id number] and prescription medicines only as told by your doctor. If you were prescribed an antibiotic medicine, take it as told by your doctor. Do not stop taking it even if you start to feel better. General instructions Drink enough fluid to keep your pee (urine) pale yellow. Do not touch or rub the infected area. Raise (elevate) the infected area above the level of your heart while you are sitting or lying down. Place cold or warm cloths on the area as told by your doctor. Keep all follow-up visits as told by your doctor. This is important. Contact a doctor if: You have a fever. You do not start to get better after 1 2 days of treatment. Your bone or joint under the infected area starts to hurt after the skin has healed. Your infection comes back. This can happen in the same area or another area. You have a swollen bump in the area. You have new symptoms. You feel ill and have muscle aches and pains. Get help right away if: Your symptoms get worse. You feel very sleepy. You throw up (vomit) or have watery poop (diarrhea) for a long time. You see red streaks coming from the area. Your red area gets larger. Your red area turns dark in color. These symptoms may represent a serious problem that is an emergency. Do not wait to see if the symptoms will go away. Get medical help right away. Call your local emergency services (911 in the [place] Do not drive yourself to the hospital. Summary Cellulitis is a skin infection. The area is often warm, red, swollen, and sore. This condition is treated with medicines, rest, and cold and warm cloths. Take all medicines only as told by your doctor. Tell your doctor if symptoms do not start to get better after 1 2 days of treatment. This information is not intended to replace advice given to you by your health care provider. Make sure you discuss any questions you have with your health care provider. Document Released: 04/02/2009 Document Revised: 03/06/2019 Document Reviewed: 03/06/2019 [employer] Patient Education 2020 [employer] Additional Information VACCINATE! IT SAVES LIVES! Members of the community who have not yet received the COVID-19 vaccine and would like to receive it can visit one of [facility] vaccine clinics. There are many vaccine clinic locations within the [facility]. For locations and available times, please visit [email or web address] It is important to note that some COVID mobile vaccine clinics are held outdoors and may be canceled in rainy or stormy conditions. To learn more about pediatric vaccinations (ages 5-11), we invite you to visit the [facility] webpage. [email or web address] learn more about the COVID-19 vaccine, we invite you to visit the CDC website for a list of frequently asked questions.https://www.cdc.gov/coronavirus/2019-ncov/vaccines/faq.html [facility] Patient Portal Access Instructions: Stay connected with your healthcare team and access your personal medical information anytime with the [facility] Patient Portal. Please follow the directions below to create your [employer] account: 1.Access the email account you provided upon registration to the hospital/physician office.2.Look for an invitation email from [facility].3.Open the email and access the invitation link: AcceptInvitation to [employer].4.Fill in the required salas to create your account. To access your account, visit [email or web address]. Click the blue button labeled Access Patient Portal and then log in with the username and password that you created in the steps above. You will be able to view your test results, lab results, a summary of your visits, upcoming appointments and more. There is also a convenient messaging option where you can send secure messages to your p BTC Chinavider. In addition, you will have the ability to download any documents or summaries to your computer and/or send the information securely to a physician. Remember that your healthcare information is confidential, so carefully consider who you will allowto register on the [facility] Patient Portal for access to your information. You can also access the [facility] Patient Portal on the [facility] aruna. Simply click on Patient Portal and then log into your account. If you would like to receive a full copy of your medical records, please contact the [facility] Medical Records Department by calling [phone], Sunday through Sunday between 8 a.m. and 4:30 p.m. HOW TO SAFELY DISPOSE OF PRESCRIPTION MEDICATIONS Please use one of the following methods to safely dispose of your unused medications. 1.Use a drug disposal kit: the drug disposal pouch allows you to safely discard your old and unuseddrugs. Ask your nurse to give you one when you are discharged.2.Visit a local take-back location: Many local pharmacies and police departments have programs that collect old and unwanted prescriptiondrugs. Call your local pharmacy or go to http://VitalsGuard.Hailo/1V3De5s to find one close to you.3.Make use of household items: Use cat litter or old coffee grounds to dispose medications if other options arenot available. Mix your drugs with these household products, seal them in an airtight container andthrow it into the garbage. Call [facility]: [phone] to be sure your drugs can be disposed of in this way. Some medicines may require a different approach.4.Never flush your medications down the toilet. IF YOU HAVE BEEN PRESCRIBED AN OPIOID FOR PAIN If you have been prescribed an opioid (such as hydrocodone, oxycodone or morphine), it is critical to understand the possible side effects and risks of opioid pain medications. Even when taken as directed, opioids can have several side effects including: Tolerance, meaning you might need to take more of a medication for the same pain relief. Nausea, vomiting and/or constipation. Sleepiness, dizziness, dry mouth, confusion, depression or itching. Physical dependence, meaning you have withdrawal symptoms when a medication is stopped, can develop within a few days. KNOW YOUR RESPONSIBILITIES It is important to know exactly how much and how often to take the opioid pain medications you are prescribed. Never take opioids in higher amounts or more often than prescribed. Do not combine opioids with alcohol or other drugs that cause drowsiness, such as benzodiazepines, also known as benzos, including diazepam and alprazolam, muscle relaxants or sleep aids. Never sell or share prescription opioids. This is illegal. Store opioids in a secure place and out of reach of others (including children, family, friends and visitors). The last page of this document has been signed and retained as a CHART COPY. Signatures Patient Education Materials Cellulitis, Adult, Mycw-tg-Pexv Medication Leaflets My discharge plan and instructions have been reviewed and explained to me and ICLINT VELDA F understand my current condition and have read and understand these discharge instructions. I have received a written copy of the plan/instructions. If I have questions, I am aware that I should contact my doctor. 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 Presented to [facility] on 08/21/2023 with complaints of right knee swelling and pain. Approximately 10 days prior to admission, did have a mechanical fall landing on her knees. Did result in a right knee laceration, went to [facility] where several stitches were placed by the ER physician. Was offered antibiotics at that time but patient declined. Did follow-up with her PCP a few days after which she was placed on Bactrim, patient states she took this for approximately a day and a half but stopped due to nausea and vomiting. On presentation, CBC demonstrated hemoglobin of 10.3, INR 4.2, hyponatremia with sodium of 127, creatinine 1.33. Noted be hemodynamically stable tolerating room air. Knee/pelvis x-ray reviewed from [facility] done on 08/11/2023 that demonstrated no fracture. Was noted to have erythema and edema surrounding right lower extremity wound. Wound was approximated, however the surface was noted to be black. Placed on IV antibiotics for treatment of cellulitis. Coumadin held due to elevated INR. Case was discussed with wound care physician at [facility] who recommended bacitracin and Adaptic with outpatient follow-up with wound care. On exam, patient is sitting up in her chair. No chest pain or shortness of breath. Does endorse right lower extremity pain, however this is improved. No nausea, vomiting, diarrhea. Objective Vitals and Measurements T: 36.7 C (Oral) TMIN: 36.5 C (Oral) TMAX: 36.7 C (Oral) HR: 80(Apical) RR: 20 BP: 184/86 SpO2: 95%WT: 60.9 kg Intake and Output 7AM Yesterday to 7AM Today Intake and Output (Last 24 hours) Intake Output Stool Count 1.00 Urine Count 6.00 Total Summary Total Intake 0.00 Total Output 0.00 Fluid Balance 0.00 Physical Exam Physical Exam General: Alert, appropriate and awake, oriented to time, people and place Skin: No rash. Warm, Dry, Intact HEENT: Head is normocephalic and atraumatic. No lesions. Pupils equal in size. Extraocular movements within normal limits. Nose: No septal deviation. Mouth: Oropharynx mucosa is without lesion. Neck: Supple. No lymphadenopathy, thyromegaly noted. Lungs: Bilaterally clear/diminished breath sounds with no crepitation or wheeze. Unlabored Cardiovascular: Heart is regular rhythm, S1S2, No extra-audible heart tones Abdomen: Abdomen is soft, nontender. Bowel sounds positive all four quadrants. Extremities: Right lower extremity wound noted with black, dry wound bed. No drainage. Erythema andedema noted. Neurological: Following simple commands, moving all extremities. Weight Current Weight Dosing Weight: 59.5 kg (08/21/23) Current Weight: 60.9 kg (08/22/23) Dosing Weight: 59 kg (08/21/23) Medications Medications (20) Active Scheduled: (11) amLODIPine 5 mg tablet 5 mg 1 tab(s), Oral, BID bacitracin topical 500 units/g Ointment TUBE 1 aruna, Topical, Daily calcitriol 0.25 mcg Capsule 0.5 mcg 2 cap(s), Oral, Mon/Sun/Fri calcitriol 0.25 mcg Capsule 0.25 mcg 1 cap(s), Oral, Sun/Tues/Thurs/Sat carvedilol 3.125 mg tablet 6.25 mg 2 tab(s), Oral, BID cefTRIAXone 2 gram(s), IV Piggyback, qDay fluticasone nasal 0.05 mg/inh [place] 100 mcg 2 spray(s), Nostril, each, BID gabapentin 100 mg Capsule 200 mg 2 cap(s), Oral, TID loratadine 10 mg Tablet 10 mg 1 tab(s), Oral, qDay multivitamin (Myadec) with minerals Therapeutic Multiple Vitamins with Minerals Tablet 1 tab(s), Oral, Daily pantoprazole 20 mg EC tablet 40 mg 2 tab(s), Oral, BIDAC Continuous: (0) PRN: (9) acetaminophen 325 mg Tablet 650 mg 2 tab(s), Oral, q4h acetaminophen 325 mg Tablet 650 mg 2 tab(s), Oral, q4h acetaminophen-HYDROcodone 325-5 mg tablet 1 tab(s), Oral, q4h Al hydrox/Mg hydrox/simethicone 200-200-20 mg/5 mL Susp UD 15 mL, Oral, q4h albuterol - ipratropium 2.5 mg-0.5 mg/3 mL Inhal Loren UD 3 mL, Inhalation, q4hRT calcium carbonate 500 mg Chewable 500 mg 1 tab(s), Chewed, TID docusate sodium 100 mg Capsule 100 mg 1 cap(s), Oral, BID melatonin 3 mg tablet 6 mg 2 tab(s), Oral, qHS ondansetron 2 mg/ 1 mL 2 mL INJ 4 mg 2 mL, IV Push, q4h Lab Results 08/22 05:44 WBC: 6.1 Hgb: 9.8 L Hct: 28.7 L Platelet: 322 Neutrophil %: 59.8 Protime: 46.8 H PT International Ratio: 4.0 Glucose Level: 91 Sodium Level: 134 L Potassium Level: 4.2 BUN: 15 Creatinine Lvl (s): 0.98 08/21 06:21 Protime: 55.3 H PT International Ratio: 4.7 08/21 05:33 WBC: 8.2 Hgb: 10.2 L Hct: 29.8 L Platelet: 357 Neutrophil %: 59.1 Glucose Level: 98 Sodium Level: 129 L Potassium Level: 4.1 BUN: 24 H Creatinine Lvl (s): 1.22 H 08/21 00:26 WBC: 10.1 Hgb: 10.3 L Hct: 30.2 L Platelet: 376 Neutrophil %: 67.1 Protime: 48.8 H PT International Ratio: 4.2 Glucose Level: 121 H Sodium Level: 127 L Potassium Level: 4.7 BUN: 29 H Creatinine Lvl (s): 1.33 H EKG No qualifying data available. Assessment/Plan 1. Right lower extremity cellulitis 2. CHRIS 3. Hyponatremia 4. History of heart failure with preserved ejection fraction 5. History of AV block status post pacemaker 6. Hyperlipidemia 7. HTN Right lower extremity cellulitis status post fall and laceration. Continue daily dressing changes with bacitracin and Adaptic. Continue IV antibiotics with Rocephin. Wound is improved today but stillvery tender to touch with erythema and edema. CHRIS, resolved with IV fluids. Hyponatremia, resolved with IV fluids. History of heart failure with preserved ejection fraction, hold diuretics for today, stop IV fluids. History of AV block status post pacemaker, stable. Hyperlipidemia, continue statin. Hypertension, continue medications. Disposition: Anticipate discharge in the next 24 to 48 hours. Pre-CERT started, plan for discharge to [facility]. CODE STATUS: Full code Discussed with patient family at the bedside, discussed with Dr. Aguilar. Time Spent Total time spent reviewing labs, diagnostics, evaluating the patient, and medical decision makin minutes Digitally Signed by RISHI ALVARENGA on 08/22/2023 10:23 AM [facility]10-24-2023 Evaluation + Plan noteExtracted from: Title:History and Physical Author:ARABELLA ALVARENGA Date:08/21/23 1. Right lower extremity rajwinder lulitis 2. CHRIS 3. Hyponatremia 4. History of heart failure with preserved ejection fraction 5. History of AV block status post pacemaker 6. Hyperlipidemia 7. HTN Right lower extremity cellulitis status post fall and laceration. Has been sutured. Noted to be black, possibly necrotic tissue over the right knee. Discussed with wound care physician at [facility] who recommended outpatient follow-up with wound clinic. Continue Rocephin for treatment of cellulitis. Doppler pending. CHRIS, creatinine 1.33 on admission, baseline around 0.9. Continue IV fluids. Hyponatremia, patient did have some nausea/vomiting outpatient related to Bactrim. Appears to be hypovolemic. Sodium improved to 129 today, was 127 on admission. Continue IV fluids, BMP in the morning. History of heart failure with preserved ejection fraction, hold diuretics in the setting of CHRIS. History of AV block status post pacemaker, stable. Hyperlipidemia, continue statin. Hypertension, continue medications. CODE STATUS: Full code Discussed with patient family at the bedside, discussed with Dr. Aguilar. Future Appointments Appointment Date:08/24/2023 02:30:00 PM Scheduled Provider: Location:[facility] Appointment Type:ACC POC Established Patient Future Scheduled Tests Radiology* CT Shoulder w/o Contrast Left 04/24/23 [facility] 10-24-2023 Note ORIGINAL HISTORY: Fall, laceration, discoloration and swelling COMPARISON: 16 September 2022 FINDINGS: There are no acute fractures or dislocations. There is an arthroplasty in near anatomic alignment. There is no radiographic evidence of loosening or failure hardware. There is prominent soft tissue swelling below the patella. IMPRESSION: Interval arthroplasty. Soft tissue swelling. Interpreted by: Juma Dick MD Preliminary Report By: Juma Dick MD Electronically signed By Juma Dick MD Dictated Date: 08/21/2023 1:08:04 PM Prelim Date: 08/21/2023 1:09:44 PM Sign Date: 08/21/2023 1:09:44 PM [facility] Exam Date Time Procedure Performing Provider Status 08/21/23 10:57 AM VL Venous US/Doppler One Leg (DVT) AOH Auth (Verified) [facility] 10-24-2023 Note Date of Service 08/21/2023 Chief Complaint fell 10 days ago, has been to [facility] and family provider, was unable to take bactrim due to vomiting. History of Present Illness 83-year-old female with past medical history of heart failure with preserved ejection fraction, A-fib on Coumadin, AV block status post pacemaker, pulmonary hypertension, hyperlipidemia, pericardial effusion in the past status post pericardiocentesis. Presented to [facility] on 08/21/2023 with complaints of right knee swelling and pain. Approximately 10 days prior to admission, did have a mechanical fall landing on her knees. Did result in a right knee laceration, went to [facility] where several stitches were placed by the ER physician. Was offered antibiotics at that time but patient declined. Did follow-up with her PCP a few days after which she was placed on Bactrim, patient states she took this for approximately a day and a half but stopped due to nausea and vomiting. On presentation, CBC demonstrated hemoglobin of 10.3, INR 4.2, hyponatremia with sodium of 127, creatinine 1.33. Noted be hemodynamically stable tolerating room air. Knee/pelvis x-ray reviewed from [facility] done on 08/11/2023 that demonstrated no fracture. Was noted to have erythema and edema surrounding right lower extremity wound. Wound was approximated, however the surface was noted to be black. Placed on IV antibiotics for treatment of cellulitis. Coumadin held due to elevated INR. On exam, patient is sitting up in bed. Endorses right knee pain. No chest pain, shortness of breath, nausea, vomiting, diarrhea. Does endorse weakness at home and difficulty ambulating due to knee pain. No other complaints. Review of Systems Review of Systems: Reviewed in detail, including general health, HEENT, cardiovascular, respiratory, gastrointestinal, genitourinary, endocrine, musculoskeletal, neurologic, vascular, skin, and psychiatric. All are negative except for those listed in the History of Present Illness Physical Exam Vitals and Measurements T: 36.8 C (Oral) TMIN: 36.5 C (Oral) TMAX: 36.8 C (Oral) HR: 81(Monitored) RR: 18 BP: 122/59 SpO2: 97% HT: 157 cm WT: 59.5 kg BMI: 24.14 Weight Dosing Weight: 59.5 kg (08/21/23) Dosing Weight: 59 kg (08/21/23) Physical Exam General: Alert, appropriate and awake, oriented to time, people and place Skin: No rash. Warm, Dry, Intact HEENT: Head is normocephalic and atraumatic. No lesions. Pupils equal in size. Extraocular movements within normal limits. Nose: No septal deviation. Mouth: Oropharynx mucosa is without lesion. Neck: Supple. No lymphadenopathy, thyromegaly noted. Lungs: Bilaterally clear/diminished breath sounds with no crepitation or wheeze. Unlabored Cardiovascular: Heart is regular rhythm, S1S2, No extra-audible heart tones Abdomen: Abdomen is soft, nontender. Bowel sounds positive all four quadrants. Extremities: Right lower extremity wound noted, noted to be approximated. Skin overlying the wound noted to be black. Erythema and edema surrounding the right lower extremity. Neurological: Following simple commands, moving all extremities. Lab Results 08/21 06:21 Protime: 55.3 H PT International Ratio: 4.7 08/21 05:33 WBC: 8.2 Hgb: 10.2 L Hct: 29.8 L Platelet: 357 Neutrophil %: 59.1 Glucose Level: 98 Sodium Level: 129 L Potassium Level: 4.1 BUN: 24 H Creatinine Lvl (s): 1.22 H 08/21 00:26 WBC: 10.1 Hgb: 10.3 L Hct: 30.2 L Platelet: 376 Neutrophil %: 67.1 Protime: 48.8 H PT International Ratio: 4.2 Glucose Level: 121 H Sodium Level: 127 L Potassium Level: 4.7 BUN: 29 H Creatinine Lvl (s): 1.33 H Assessment/Plan 1. Right lower extremity cellulitis 2. CHRIS 3. Hyponatremia 4. History of heart failure with preserved ejection fraction 5. History of AV block status post pacemaker 6. Hyperlipidemia 7. HTN Right lower extremity cellulitis status post fall and laceration. Has been sutured. Noted to be black, possibly necrotic tissue over the right knee. Discussed with wound care physician at [facility] who recommended outpatient follow-up with wound clinic. Continue Rocephin for treatment of cell ulitis. Doppler pending. CHRIS, creatinine 1.33 on admission, baseline around 0.9. Continue IV fluids. Hyponatremia, patient did have some nausea/vomiting outpatient related to Bactrim. Appears to be hypovolemic. Sodium improved to 129 today, was 127 on admission. Continue IV fluids, BMP in the morning. History of heart failure with preserved ejection fraction, hold diuretics in the setting of CHRIS. History of AV block status post pacemaker, stable. Hyperlipidemia, continue statin. Hypertension, continue medications. CODE STATUS: Full code Discussed with patient family at the bedside, discussed with Dr. Aguilar. Problem List/Past Medical History Ongoing Age-related osteoporosis without current pathological fracture Anticoagulant long-term use Anticoagulated on Coumadin Arthralgia Arthralgia of multiple joints Atrial fibrillation CAD (coronary artery disease) CAD IN [place] ARTERY Cataract Cataract of left eye Cerumen impaction CHRONIC ANEMIA Chronic diastolic congestive heart failure COMPLETE HEART BLOCK Conjunctivitis DEGENERATIVE CERVICAL DISC DEGENERATIVE JOINT DISEASE DIASTOLIC HEART FAILURE OF UNKNOWN ETIOLOGY Difficulty bending to reach feet Diverticulitis DYSLIPIDEMIA GERD (gastroesophageal reflux disease) Hammer toe Hematoma of right lower leg History of anticoagulant therapy HYPERTENSION, UNSPECIFIED (Renamed from ESSENTIAL (PRIMARY) HYPERTENSION) Hypocalcemia Infected skin tear Insomnia Knee laceration Labyrinthitis Left 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 Lower back pain Mixed hyperlipidemia Moderate mitral regurgitation Neuropathy OA (osteoarthritis) of knee Onychomycosis of toenails Osteoporosis PACEMAKER PARTIAL BOWEL OBSTRUCTION PERICARDITIS PERMANENT ATRIAL FIBRILLATION Post-traumatic wound infection PULMONARY HYPERTENSION SHORTNESS OF BREATH Shoulder pain, right Sinusitis Skin tear of right lower leg without complication Skin tear of upper extremity SVT (supraventricular tachycardia) TEAR OF BICEPS MUSCLE (Renamed from BICEPS MUSCLE TEAR) Traumatic ecchymosis of left shoulder UNSTEADY GAIT QUESTIONABLE ETIOLOGY Upper back pain UTI (urinary tract infection) Valvular heart disease Ventral hernia Vertigo Historical Anemia Procedure/Surgical History Knee replacement: 05/2018 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 Hysterectomy: 1990 Pericardial effusion Insertion of programmable cardiac pacemaker Cardioversion Appendectomy Cardiac ablation using fluoroscopy guidance Medications Home Medications (19) Active acetaminophen-hydrocodone 325 mg-5 mg oral tablet 1 tab(s), Oral, q6hr albuterol MDI (90 mcg/inh) CFC free inhalation aerosol 2 puff(s), PRN, Inhalation, q6h amLODIPine 5 mg oral tablet 5 mg = 1 tab(s), Oral, BID Bactrim DS 800 mg-160 mg oral tablet 1 tab(s), Oral, BID calcitriol 0.25 mcg oral capsule 0.25 mcg = 1 cap(s), Oral, Sun///Sat calcitriol 0.25 mcg oral capsule 0.5 mcg = 2 cap(s), Oral, Sun/Sun/Fri carvedilol 6.25 mg oral tablet Centrum Silver oral tablet 1 tab(s), PO, Daily Colace 100 mg oral capsule 100 mg = 1 cap(s), Oral, BID Farxiga 10 mg oral tablet 10 mg = 1 tab(s), Oral, qDay Flonase 50 mcg/inh nasal spray 2 spray(s), Nostril, each, BID gabapentin 100 mg oral capsule 200 mg = 2 cap(s), Oral, TID Lasix 40 mg oral tablet 40 mg = 1 tab(s), Oral, qDay Metanx oral capsule 1 tab(s), Oral, Daily spironolactone 50 mg oral tablet 50 mg = 1 tab(s), Oral, qDayM Voltaren 1% topical gel 4 gram(s), PRN, Topical, QID warfarin 3 mg oral tablet 9 mg = 3 tab(s), Oral, Sunday warfarin 6 mg oral tablet 6 mg = 1 tab(s), Oral, Sun/Sun//Wed/urs/Sat Zofran 4 mg oral tablet 4 mg = 1 tab(s), PRN, Oral, q6h Allergies Cipro (Dizziness) Dicloxacillin Sodium Iodine (hives) Levaquin (Insomnia, Nausea, Abdominal pain) ciprofloxacin (Dizziness) clindamycin (Nausea) iodine topical (Eruption) levoFLOXacin (Nausea, Abdominal pain) penicillin (hives) penicillin V potassium (Eruption) simvastatin (Muscle ache) Social History Smoking Status - 12/21/2017 Never smoker Alcohol - Denies Alcohol Use, 09/06/2017 Use: Never., 03/13/2019 Employment/School Status: Retired., 07/08/2019 Home/Environment Domestic Concerns: Denies. Living situation: Home with assistance. 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 Lives In: Multilevel home. Current Home Treatments None. Professional Skilled [facility] Financial concerns: No. Spouse Name: Michael. Marital Status: ., 01/11/2021 Nutrition/Health Type of diet: Low sodium. Appetite Good. Eating Difficulties Chewing. Enteral Feedings No. TPN Feedings No. Skin Breakdown No. Caffeine intake amount: Decaf only., 01/11/2021 Substance Abuse - Denies Substance Abuse, 09/06/2017 Use: Never., 03/13/2019 Tobacco - Denies Tobacco Use, 10/24/2018 Tobacco Use: Never (less than 100 in lifetime), Tobacco/Smoke Exposure., 05/30/2019 Family History Cancer: Mother. HTN - Hypertension: Mother and Father. Heart disease: Father. Stroke: Father. Immunizations pneumococcal 13-valent conjugate vaccine: 0 unknown unit (08/20/17) pneumococcal 23-valent vaccine(Pneumovax: 0.5 mL (07/08/19) SARS-CoV-2 (COVID-19) mRNA-1273 vaccine: 50 mcg (05/22/22) SARS-CoV-2 (COVID-19) mRNA-1273 vaccine: 50 mcg (09/07/21) SARS-CoV-2 (COVID-19) mRNA-1273 vaccine: 100 mcg (12/31/20) SARS-CoV-2 (COVID-19) mRNA-1273 vaccine: 0 unknown unit (12/03/20) tetanus/diphth/pertuss (Tdap) adult/adol: 0.5 mL (11/18/22) tetanus/diphth/pertuss (Tdap) adult/adol: 0 unknown unit (11/10/16) zoster vaccine live: 0 unknown unit (10/29/12) zoster vaccine live: 0 unknown unit (10/29/12) zoster vaccine live: 0 unknown unit (09/27/12) zoster vaccine, inactivated: 1 unknown unit (09/30/21) zoster vaccine, inactivated: 1 unknown unit (04/08/21) Code Status Code Status - Ordered -- 08/21/23 1:58:00 EDT, Full Code, Constant Order Digitally Signed by RISHI ALVARENGA APRN-ZURI on 08/21/2023 11:56 AM [facility]08-10-2023 Note* Exam Date Time Procedure Performing Provider Status 06/07/23 10:13 AM VL - ABIs (ankles only) - CV Auth (Verified) [facility] 04-16-2023 Note. MICRO - Microbiology PROCEDURE: Culture Wound Aerobic with Gram Stain [*1] SOURCE: Wound (surface) BODY SITE: Leg R COLLECTED DATE/TIME: 02/08/2023 15:08 EDT RECEIVED DATE/TIME: 02/08/2023 16:21 EDT START DATE/TIME: 02/08/2023 16:21 EDT FREE TEXT SOURCE: Right Lower Extremity FINAL REPORTS Final Report [] Verified Date/Time/Personnel: 02/11/2023 09:02 EDT Few Staphylococcus aureus This staphylococci is presumed to be resistant to clindamycin based on the detection of inducible clindamycin resistance. Clindamycin may still be effective in some patients. PRELIMINARY REPORTS Preliminary Report [] Verified Date/Time/Personnel: 02/10/2023 09:06 EDT Few Staphylococcus aureus NICK to follow Preliminary Report [] Verified Date/Time/Personnel: 02/09/2023 14:05 EDT Culture results pending. STAINS GS [] Verified Date/Time/Personnel: 02/08/2023 17:01 EDT Rare Polymorphonuclear cells Rare Gram Positive Cocci SUSCEPTIBILITY RESULTS Staphylococcus aureus Antibiotic NICK Dilut NICK Inter Ampicillin >8 Beta Lactamase Positive Ampicillin/ <=8/4 Susceptible Sulbactam Azithromycin >4 Resistant Cefepime <=4 Susceptible Cefotaxime <=8 Susceptible Ceftaroline <=0.5 Susceptible Ceftriaxone <=4 Susceptible Ciprofloxacin <=1 Susceptible Clindamycin Resistant Erythromycin >4 Resistant Imipenem <=4 Susceptible Levofloxacin <=1 Susceptible Meropenem <=2 Susceptible Oxacillin 0.5 Susceptible Penicillin >2 Beta Lactamase Positive Piperacillin/ <=8 Susceptible Tazobactam Tetracycline <=4 Susceptible Trimethoprim/ <=0.5/9.5 Susceptible Sulfa Vancomycin 0.5 Susceptible Performing Locations *1: This test was performed at: [address], [facility] , [facility] ([place])12-14-2022 Note. MICRO - Microbiology PROCEDURE: Culture Wound Aerobic with Gram Stain [*1] SOURCE: Wound (surface) BODY SITE: Leg R COLLECTED DATE/TIME: 12/11/2022 16:11 EST RECEIVED DATE/TIME: 12/11/2022 16:54 EST START DATE/TIME: 12/11/2022 16:54 EST FREE TEXT SOURCE: FINAL REPORTS Final Report [] Verified Date/Time/Personnel: 12/14/2022 08:18 EST Heavy Staphylococcus aureus This staphylococci is presumed to be resistant to clindamycin based on the detection of inducible clindamycin resistance. Clindamycin may still be effective in some patients. Moderate normal skin marcela present. Sensitivity testing not indicated. PRELIMINARY REPORTS Preliminary Report [] Verified Date/Time/Personnel: 12/13/2022 08:29 EST Heavy Staphylococcus aureus NICK to follow Moderate normal skin marcela present. Sensitivity testing not indicated. Preliminary Report [] Verified Date/Time/Personnel: 12/12/2022 09:35 EST Culture results pending. STAINS GS [] Verified Date/Time/Personnel: 12/12/2022 00:24 EST 3+ Gram Positive Cocci SUSCEPTIBILITY RESULTS Staphylococcus aureus Antibiotic NICK Dilut NICK Inter Ampicillin >8 Beta Lactamase Positive Ampicillin/ <=8/4 Susceptible Sulbactam Azithromycin >4 Resistant Cefepime <=4 Susceptible Cefotaxime <=8 Susceptible Ceftaroline <=0.5 Susceptible Ceftriaxone <=4 Susceptible Ciprofloxacin <=1 Susceptible Clindamycin Resistant Erythromycin >4 Resistant Imipenem <=4 Susceptible Levofloxacin <=1 Susceptible Meropenem <=2 Susceptible Oxacillin 0.5 Susceptible Penicillin >2 Beta Lactamase Positive Piperacillin/ <=8 Susceptible Tazobactam Tetracycline <=4 Susceptible MICRO - Microbiology SUSCEPTIBILITY RESULTS Staphylococcus aureus Antibiotic NICK Dilut NICK Inter Trimethoprim/ <=0.5/9.5 Susceptible Sulfa Vancomycin 0.5 Susceptible Performing Locations *1: This test was performed at: [facility], [address] [place] [address], [id number] , [facility] ([place])11-18-2022 Hospital Discharge instructions Patient Education 11/18/2022 17:06:43 LACERATION, All Laceration (All Closures) A laceration is a cut through the skin. This will usually require stitches (sutures) or enid if it is deep. Minor cuts may be treated with a surgical tape closure or skin glue. Home care The following guidelines will help you care for your laceration at home: Extremity, face, or trunk wounds Keep the wound clean and dry. If a bandage was applied and it becomes wet or dirty, replace it. Otherwise, leave it in place for the first 24 hours. If stitches or enid were used, clean the wound daily. After removing the bandage, wash the area with soap and water. Use a wet cotton swab to loosen and remove any blood or crust that forms. The doctor may prescribe an antibiotic cream or ointment to prevent infection. Do not stop taking this medication until you have finished the prescribed course or the doctor tells you to stop. The doctor may also prescribe medications for pain. Follow the doctor s instructions for taking these medications. You may remove the bandage to shower as usual after the first 24 hours, but do not soak the area inwater (no swimming) until the stitches or enid are removed. If surgical tape was used, keep the area clean and dry. If it becomes wet, blot it dry with a towel. If skin glue was used, do not scratch, rub, or pick at the adhesive film. Do not place tape directly over the film. Do not apply liquid, ointment, or creams to the wound while the film is in place. Do not clean the wound with peroxide and do not apply ointments. Avoid activities that cause heavy sweating until the film has fallen off. Protect the wound from prolonged exposure to sunlight or tanning lamps. You may shower as usual but do not soak the wound in water (no baths or swimming). The film will fall off by itself in 5 10 days. Scalp wounds During the first two days, you may carefully rinse your hair in the shower to remove blood, glass or dirt particles. After two days, you may shower and shampoo your hair normally. Do not soak your scalp in the tub or go swimming until the stitches or enid have been removed. Talk with your doctorbefore applying any antibiotic ointment to the wound. Mouth wounds Eat soft foods to reduce pain. If the cut is inside of your mouth, clean by rinsing after each mealand at bedtime with a mixture of equal parts water and hydrogen peroxide (do not swallow!). Or, youcan use a cotton swab to directly apply hydrogen peroxide onto the cut. Mouth wounds can be painfulwhen eating. You may use an [id number] local numbing solution for pain relief. If this is notavailable, you may use any numbing solution for teething babies. You may apply this directly to thesores with a cotton-tip swab or with your finger. Follow-up care Follow up with your health care provider. Most skin wounds heal within ten days. Mouth and facial wounds heal within five days. However, even with proper treatment, a wound infection may sometimes occur. Therefore, you should check the wound daily for signs of infection listed below. Stitches should be removed from the face within five days; stitches and enid should be removed from other parts of the body within 7 14 days. If dissolving stitches were used in the mouth, these will fall out or dissolve without the need for removal. If tape closures were used, remove them yourself if they have not fallen off after 7 days. If skin glue was used, the film will fall off by itself in 5 10 days. When to seek medical advice Call your health care provider right away if any of these occur: Bleeding not controlled by direct pressure Signs of infection, including increasing pain in the wound, increasing wound redness or swelling, or pus coming from the wound Fever of 100.4 F (38 C) or higher, or as directed by your health care provider Stitches or enid come apart or fall out or surgical tape falls off before 7 days Wound edges re-open [id number] [employer]. [address] [place] [address], [place] [address]. All rights reserved. This information is not intended as a substitute for professional medical care. Always follow yourhealthcare professional's instructions. Follow Up Care 11/18/2022 16:43:38 With:Go to emergency room if symptoms worsen Address:Unknown When:2-4 days With:ZOHRA PEÑALOZA MD Address: [address] [place] [address]- When:2-4 days [facility] 01-21-2023 Note Discharge Instructions Thank you for allowing [facility] to assist you with your healthcare needs. The following is importantdischarge information regarding your hospital visit. Diagnosis from Today's Visit Laceration of leg Leg laceration What to Do Next Instructions from Your Care Team Follow-up with your primary care provider or return the emergency department in 8 to 10 days for possible suture removal. Take Keflex as prescribed. Keep wound clean and dry. Return emergency department immediately if you develop increased redness around wound, drainage, bleeding, fevers, or any other care concern. Your INR was 3.3 here follow-up with your primary care provider and Coumadin clinic. No qualifying data available. Post Acute Orders No qualifying data available. You Need to Schedule the Following Appointments Follow Up with Go to emergency room if symptoms worsen When Within 2-4 days Follow Up with ZOHRA PEÑALOZA MD When Within 2-4 days Where: [address] [place] [address]- Allergies Cipro (Dizziness) Dicloxacillin Sodium Iodine (hives) Levaquin (Insomnia, Nausea, Abdominal pain) ciprofloxacin (Dizziness) clindamycin (Nausea) iodine topical (Eruption) levoFLOXacin (Nausea, Abdominal pain) penicillin (hives) penicillin V potassium (Eruption) simvastatin (Muscle ache) Immunizations This Visit Given Vaccine Datetetanus/diphth/pertuss (Tdap) adult/adol 11/18/2022 Medications Please ask your primary doctor or pharmacist before taking any other medication not listed, including over the counter drugs, herbal medications, vitamins and or supplements as they may interact withyour home medications. What How Much When Why Instructions Last Dose New cephalexin (cephalexin 500 mg oral capsule) 1 cap by mouth Four (4) times a day Laceration of leg Duration: 7 Days Printed Prescription Unchanged acetaminophen-hydrocodone (acetaminophen-hydrocodone 325 mg-5 mg oral tablet) 1 tab(s) by mouth Every 6 hours Arthralgia of multiple joints OA (osteoarthritis) of knee Duration: 30 Days take 1 tablet by mouth every 6 hours Unchanged albuterol (albuterol MDI (90 mcg/ inh) CFC free inhalation aerosol) 2 puff(s) by inhalation Every 6 hours as needed for as needed for wheezing Unchanged amLODIPine (amLODIPine 5 mg oral tablet) 1 tab(s) by mouth Daily at bedtime Unchanged ammonium lactate topical (ammonium lactate 12% topical cream) Unchanged calcitriol (calcitriol 0.25 mcg oral capsule) 2 cap by mouth Sunday / Sunday / Sunday Unchanged calcitriol (calcitriol 0.25 mcg oral capsule) 1 cap by mouth Every Sun / / / Sun Unchanged carvedilol (carvedilol 12.5 mg oral tablet) 1 tab(s) by mouth Twice daily with meals Unchanged diclofenac topical (Voltaren 1% topical gel) 4 gram(s) Topical Four (4) times a day as needed for Pain Osteoarthritis Duration: 30 Days Unchanged DME (Spacer, inhaler) See instructions 1 spacer for inhaler Unchanged docusate (Colace 100 mg oral capsule) 1 cap by mouth Two (2) times a day Unchanged fluticasone nasal (Flonase 50 mcg/ inh nasal spray) 2 spray(s) each nostril Two (2) times a day Acute bronchitis Unchanged furosemide (Lasix 40 mg oral tablet) 1 tab(s) by mouth Once a day Unchanged ibandronate (ibandronate 150 mg oral tablet) by mouth Every Sunday and Unchanged loratadine (Claritin 10 mg oral tablet) 1 tab(s) by mouth Once a day Unchanged multivitamin with minerals (Centrum Silver oral tablet) 1 tab(s) by mouth Every day Unchanged warfarin (warfarin 1 mg oral tablet) 1 tab(s) by mouth As Directed as needed for Other (see order comments) Duration: 90 Days 1-4 pills daily as directed Unchanged warfarin (warfarin 5 mg oral tablet) 1 tab(s) by mouth Once a day Please take this list to your next doctor s visit. Bring all medications you take, including over the counter medications, herbals and other supplements with you to your doctor s visit. Patients and families are reminded to discard old lists and to update any records with all medication providers or retail pharmacies. Medication Leaflets cephalexin (sef a MICK in) Keflex What is the most important information I should know about cephalexin? You should not use this medicine if you are allergic to cephalexin or to similar antibiotics, such as Ceftin, Cefzil, Omnicef, and others. Tell your doctor if you are allergic to any drugs, especially penicillins or other antibiotics. What is cephalexin? Cephalexin is a cephalosporin (SEF a low spor in) antibiotic that is used to treat bacterial infections of the lungs, ear, skin, bones, bladder, and kidneys. Cephalexin is used to treat infections in adults and children who are at least 1 year old. Cephalexin may also be used for purposes not listed in this medication guide. What should I discuss with my healthcare provider before taking cephalexin? You should not use this medicine if you are allergic to cephalexin or any other cephalosporin antibiotic (cefdinir, cefadroxil, cefoxitin, cefprozil, ceftriaxone, cefuroxime, Omnicef, and others). Tell your doctor if you have ever had: an allergy to any drug (especially penicillin); liver or kidney disease; or intestinal problems, such as colitis. The liquid form of cephalexin may contain sugar. This may affect you if you have diabetes. Tell your doctor if you are or breast-feeding. How should I take cephalexin? Follow all directions on your prescription label and read all medication guides or instruction sheets. Use the medicine exactly as directed. Do not use cephalexin to treat any condition that has not been checked by your doctor. Measure liquid medicine carefully. Use the dosing syringe provided, or use a medicine dose-measuring device (not a kitchen spoon). Use this medicine for the full prescribed length of time, even if your symptoms quickly improve. Skipping doses can increase your risk of infection that is resistant to medication. Cephalexin will not treat a viral infection such as the flu or a common cold. Do not share cephalexin with another person, even if they have the same symptoms you have. This medicine can affect the results of certain medical tests. Tell any doctor who treats you that you are using cephalexin. Store the tablets and capsules at room temperature away from moisture, heat, and light. Store the liquid medicine in the refrigerator. Throw away any unused liquid after 14 days. What happens if I miss a dose? Take the medicine as soon as you can, but skip the missed dose if it is almost time for your next dose. Do not take two doses at one time. What happens if I overdose? Seek emergency medical attention or call the Poison Help line at . Overdose symptoms may include nausea, vomiting, stomach pain, diarrhea, and blood in your urine. What should I avoid while taking cephalexin? Antibiotic medicines can cause diarrhea, which may be a sign of a new infection. If you have diarrhea that is watery or bloody, call your doctor before using anti-diarrhea medicine. What are the possible side effects of cephalexin? Get emergency medical help if you have signs of an allergic reaction (hives, difficult breathing, swelling in your face or throat) or a severe skin reaction (fever, sore throat, burning eyes, skin pain, red or purple skin rash with blistering and peeling). Call your doctor at once if you have: severe stomach pain, diarrhea that is watery or bloody (even if it occurs months after your last dose); unusual tiredness, feeling light-headed or short of breath; easy bruising, unusual bleeding, purple or red spots under your skin; a seizure; pale skin, cold hands and feet; yellowed skin, dark colored urine; fever, weakness; or pain in your side or lower back, painful urination. Common side effects may include: diarrhea; nausea, vomiting; indigestion, stomach pain; or vaginal itching or discharge. This is not a complete list of side effects and others may occur. Call your doctor for medical advice about side effects. You may report side effects to FDA at 4-535-SCI-1670. What other drugs will affect cephalexin? Tell your doctor about all your other medicines, especially: metformin; or probenecid. This list is not complete. Other drugs may affect cephalexin, including prescription and pmid-ejb-dsxcswf medicines, vitamins, and herbal products. Not all possible drug interactions are listed here. Where can I get more information? Your pharmacist can provide more information about cephalexin. Remember, keep this and all other medicines out of the reach of children, never share your medicines with others, and use this medication only for the indication prescribed. Every effort has been made to ensure that the information provided by [employer]. ('[employer]') is accurate, up-to-date, and complete, but no guarantee is made to that effect. Drug information contained herein may be time sensitive. [employer] information has been compiled for use by healthcare practitioners and consumers in the [place] and therefore [employer] does not warrant that uses outside of the [place] are appropriate, unless specifically indicated otherwise. [employer] drug information does not endorse drugs, diagnose patients or recommend therapy. [employer] drug information isan informational resource designed to assist licensed healthcare practitioners in caring for their p atients and/or to serve consumers viewing this service as a supplement to, and not a substitute for, the expertise, skill, knowledge and judgment of healthcare practitioners. The absence of a warningfor a given drug or drug combination in no way should be construed to indicate that the drug or drug combination is safe, effective or appropriate for any given patient. [employer] does not assume any responsibility for any aspect of healthcare administered with the aid of information [employer] provides. The information contained herein is not intended to cover all possible uses, directions, precautions, warnings, drug interactions, allergic reactions, or adverse effects. If you have questions about the drugs you are taking, check with your doctor, nurse or pharmacist. Copyright 5982-8135 [employer]. Version: 10.03. Revision Date: 11/01/2020. Education Materials Laceration (All Closures) A laceration is a cut through the skin. This will usually require stitches (sutures) or enid if it is deep. Minor cuts may be treated with a surgical tape closure or skin glue. Home care The following guidelines will help you care for your laceration at home: Extremity, face, or trunk wounds Keep the wound clean and dry. If a bandage was applied and it becomes wet or dirty, replace it. Otherwise, leave it in place for the first 24 hours. If stitches or enid were used, clean the wound daily. After removing the bandage, wash the area with soap and water. Use a wet cotton swab to loosen and remove any blood or crust that forms. The doctor may prescribe an antibiotic cream or ointment to prevent infection. Do not stop taking this medication until you have finished the prescribed course or the doctor tells you to stop. The doctor may also prescribe medications for pain. Follow the doctor s instructions for taking these medications. You may remove the bandage to shower as usual after the first 24 hours, but do not soak the area inwater (no swimming) until the stitches or enid are removed. If surgical tape was used, keep the area clean and dry. If it becomes wet, blot it dry with a towel. If skin glue was used, do not scratch, rub, or pick at the adhesive film. Do not place tape directly over the film. Do not apply liquid, ointment, or creams to the wound while the film is in place. Do not clean the wound with peroxide and do not apply ointments. Avoid activities that cause heavy sweating until the film has fallen off. Protect the wound from prolonged exposure to sunlight or tanning lamps. You may shower as usual but do not soak the wound in water (no baths or swimming). The film will fall off by itself in 5 10 days. Scalp wounds During the first two days, you may carefully rinse your hair in the shower to remove blood, glass or dirt particles. After two days, you may shower and shampoo your hair normally. Do not soak your scalp in the tub or go swimming until the stitches or enid have been removed. Talk with your doctorbefore applying any antibiotic ointment to the wound. Mouth wounds Eat soft foods to reduce pain. If the cut is inside of your mouth, clean by rinsing after each mealand at bedtime with a mixture of equal parts water and hydrogen peroxide (do not swallow!). Or, youcan use a cotton swab to directly apply hydrogen peroxide onto the cut. Mouth wounds can be painfulwhen eating. You may use an [id number] local numbing solution for pain relief. If this is notavailable, you may use any numbing solution for teething babies. You may apply this directly to thesores with a cotton-tip swab or with your finger. Follow-up care Follow up with your health care provider. Most skin wounds heal within ten days. Mouth and facial wounds heal within five days. However, even with proper treatment, a wound infection may sometimes occur. Therefore, you should check the wound daily for signs of infection listed below. Stitches should be removed from the face within five days; stitches and enid should be removed from other parts of the body within 7 14 days. If dissolving stitches were used in the mouth, these will fall out or dissolve without the need for removal. If tape closures were used, remove them yourself if they have not fallen off after 7 days. If skin glue was used, the film will fall off by itself in 5 10 days. When to seek medical advice Call your health care provider right away if any of these occur: Bleeding not controlled by direct pressure Signs of infection, including increasing pain in the wound, increasing wound redness or swelling, or pus coming from the wound Fever of 100.4 F (38 C) or higher, or as directed by your health care provider Stitches or enid come apart or fall out or surgical tape falls off before 7 days Wound edges re-open [id number] [employer]. [address] [place] [address]. All rights reserved. This information is not intended as a substitute for professional medical care. Always follow yourhealthcare professional's instructions. Additional Information VACCINATE! IT SAVES LIVES! Members of the community who have not yet received the COVID-19 vaccine and would like to receive it can visit one of [facility] vaccine clinics. There are many vaccine clinic locations within the [facility]. For locations and available times, please visit [email or web address]. It is important to note that some COVID mobile vaccine clinics are held outdoors and may be canceled in rainy orstormy conditions. To learn more about pediatric vaccinations (ages 5-11), we invite you to visit the [facility] webpage. [email or web address] learn more about the COVID-19 vaccine, we invite you to visit the [employer] website for a list of frequently asked questions. [email or web address] [facility] Patient Portal Access Instructions: Stay connected with your healthcare team and access your personal medical information anytime with the [facility] Patient Portal. If you would like a full copy of your medical records please contact the [facility] Medical Records Department Sunday through Sunday between 8a.m. and 4:30p.m. Please follow the directions below to access the portal: 1.Access the email account you provided upon registration to the [facility].2.Look for an invitation email from [facility].3.Open the email and access the invitation link: Accept Invitation to [facility]4.Fill in the required salas to create your account. Sign into [email or web address] with your username and password that you created in the above steps to stay up to date. You can then view a summary of results, a summary of your visits, and the ability to download your summaries to your computer or send the information securely to a physician. Remember that your healthcare information is confidential, so carefully consider who you will allow to register on the [facility] Patient Portal for access to your information. You can also access the [facility] Patient Portal on the [employer] aruna. Simply click on Health Records under [email or web address] and then click on the Lucinda logo. HOW TO SAFELY DISPOSE OF PRESCRIPTION MEDICATIONS Please use one of the following methods to safely dispose of your unused medications. 1.Use a drug disposal kit: the drug disposal pouch allows you to safely discard your old and unuseddrugs. Ask your nurse to give you one when you are discharged.2.Visit a local take-back location: Many local pharmacies and police departments have programs that collect old and unwanted prescriptiondrugs. Call your local pharmacy or go to http://bit.Hailo/0H5Ms5e to find one close to you.3.Make use of household items: Use cat litter or old coffee grounds to dispose medications if other options arenot available. Mix your drugs with these household products, seal them in an airtight container andthrow it into the garbage. Call [facility]: [phone] to be sure your drugs can be disposed of in this way. Some medicines may require a different approach.4.Never flush your medications down the toilet. IF YOU HAVE BEEN PRESCRIBED AN OPIOIDS FOR PAIN If you have been prescribed an opioid (such as hydrocodone, oxycodone or morphine), it is critical to understand the possible side effects and risks of opioid pain medications. Even when taken as directed, opioids can have several side effects including: Tolerance, meaning you might need to take more of a medication for the same pain relief. Nausea, vomiting and/or constipation. Sleepiness, dizziness, dry mouth, confusion, depression or itching. Physical dependence, meaning you have withdrawal symptoms when a medication is stopped ? this can develop within a few days. KNOW YOUR RESPONSIBILITIES It is important to know exactly how much and how often to take the opioid pain medications you are prescribed. Never take opioids in higher amounts or more often than prescribed. Do not combine opioids with alcohol or other drugs that cause drowsiness, such as benzodiazepines, also known as benzos,including diazepam and alprazolam, muscle relaxants or sleep aids. Never sell or share prescriptionopioids. This is illegal. Store opioids in a secure place and out of reach of others (including children, family, friends and visitors). The last page(s) of this document has been signed and retained as a CHART COPY Signatures Patient Education Materials LACERATION, All Medication Leaflets cephalexin My discharge plan and instructions have been reviewed and explained to me and I,JEANINE COLLAZO understand my current condition and have read and understand these discharge instructions. I have received a written copy of the plan/instructions. If I have questions, I am aware that I should contact my doctor. 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 Right knee prosthesis appears unchanged. No acute fracture or dislocation. Superficial soft tissue density or edema measuring proximally 2 cm in craniocaudal dimension is seen anterior to the mid to distal tibia. There are vascular calcifications. No unexpected radiopaque foreign body. IMPRESSION: No acute fracture or dislocation. Superficial edema/soft tissue density, possibly hematoma, anterior to the mid to distal tibia. I have personally reviewed the images of this examination and agree with the resident's findings and interpretation. Interpreted by: Tea Marr MD Preliminary Report By: Zelalem Ennis Electronically signed By Tea Marr MD Dictated Date: 11/18/2022 5:43:29 PM Prelim Date: 11/18/2022 5:47:49 PM Sign Date: 11/18/2022 5:52:22 PM Ordering Provider: [facility]01-21-2023 Note ORIGINAL EXAMINATION: TWO XRAY VIEWS OF THE RIGHT TIBIA/FIBULA11/18/2022 5:40 pm COMPARISON: 10/31/2021 HISTORY: ORDERING SYSTEM PROVIDED HISTORY: Reason for Exam: laceration FINDINGS: Bones are demineralized. Right knee prosthesis appears unchanged. No acute fracture or dislocation. Superficial soft tissue density or edema measuring proximally 2 cm in craniocaudal dimension is seen anterior to the mid to distal tibia. There are vascular calcifications. No unexpected radiopaque foreign body. IMPRESSION: No acute fracture or dislocation. Superficial edema/soft tissue density, possibly hematoma, anterior to the mid to distal tibia. I have personally reviewed the images of this examination and agree with the resident's findings and interpretation. Interpreted by: Tea Marr MD Preliminary Report By: Zelalem Ennis Electronically signed By Tea Marr MD Dictated Date: 11/18/2022 5:43:29 PM Prelim Date: 11/18/2022 5:47:49 PM Sign Date: 11/18/2022 5:52:22 PM Ordering Provider: [facility]11-19-2022 Note ORIGINAL EXAMINATION: THREE XRAY VIEWS OF THE LEFT KNEE09/16/2022 12:13 pm COMPARISON: August 20, 2020 radiograph HISTORY: ORDERING SYSTEM PROVIDED HISTORY: Reason for Exam: left knee pain/swelling no known injury FINDINGS: No acute fracture or dislocation. There are minor arthritic changes throughout the knee with slight spurring. Possible small knee effusion. No aggressive osseous lesion. No radiopaque foreign body. IMPRESSION: No acute fracture or dislocation. Possible small knee effusion. Interpreted by: Michael Schulte DO Preliminary Report By: Michael Schulte DO Electronically signed By Michael Schulte DO Dictated Date: 09/16/2022 12:17:22 PM Prelim Date: 09/16/2022 12:19:25 PM Sign Date: 09/16/2022 12:19:25 PM Ordering Provider: [facility]11-19-2022 Note ORIGINAL EXAMINATION: THREE XRAY VIEWS OF THE LEFT KNEE09/16/2022 12:13 pm COMPARISON: August 20, 2020 radiograph HISTORY: ORDERING SYSTEM PROVIDED HISTORY: Reason for Exam: left knee pain/swelling no known injury FINDINGS: No acute fracture or dislocation. There are minor arthritic changes throughout the knee with slight spurring. Possible small knee effusion. No aggressive osseous lesion. No radiopaque foreign body. IMPRESSION: No acute fracture or dislocation. Possible small knee effusion. Interpreted by: Michael Schulte DO Preliminary Report By: Michael Schulte DO Electronically signed By Michael Schulte DO Dictated Date: 09/16/2022 12:17:22 PM Prelim Date: 09/16/2022 12:19:25 PM Sign Date: 09/16/2022 12:19:25 PM Ordering Provider: [facility]10-11-2022 History of Present illness Narrative* Vicky Chisholm DO - 08/08/2022 9:30 PM EDT Images from the original note were not included. Jeanine Collazo is a 82 year old FEMALE who presents with Derm Problem (Skin tear left arm hit shopping cart 8cm) HPI History reviewed. No pertinent past medical history. ACTIVE PROBLEM LIST Cardiac Pacemaker in Situ Atrioventricular Block, Unspecified Atrial Fibrillation (Hcc) Current Outpatient Medications Medication Sig Dispense Refill amLODIPine (NORVASC) 5 mg tablet 5 mg. calcitriol (ROCALTROL) 0.25 mcg capsule Take by mouth. clonazePAM (KLONOPIN) 0.5 mg tablet Take by mouth. colchicine 0.6 mg capsule Take by mouth. cyclobenzaprine (FLEXERIL) 5 mg tablet take 1 tablet by mouth three times a day for 7 days docusate sodium (COLACE) 100 mg capsule 100 mg. ergocalciferol, vitamin D2, 50 mcg (2,000 unit) tab Take by mouth. fluticasone (FLONASE) 50 mcg/actuation nasal spray Use in the nose. HYDROcodone-acetaminophen (NORCO) 5-325 mg per tablet Take 1 tablet by mouth. Ibandronate 150 mg tablet Take by mouth. Lactobacillus rhamnosus GG 5 billion cell chew Take by mouth. spironolactone (ALDACTONE) 25 mg tablet 25 mg. warfarin (COUMADIN) 6 mg tablet Take by mouth. warfarin (COUMADIN) 5 mg tablet Take 5 mg by mouth once daily. tiZANidine (ZANAFLEX) 4 mg tablet Take by mouth. carvedilol (COREG) 6.25 mg tablet Take by mouth. NADOLOL 20MG TABLET qd 0 AVAPRO 150MG TABLET qd 0 TAMBOCOR 150MG TABLET 1/2 tab bid 0 FISH OIL 1000MG CAPSULE qd 0 AUDIE 500MG CAPSULE qd 0 LASIX 40MG TABLET Take one(1) tablet twice daily. 30 0 FIBERCON 625MG TABLET take 1 tablet daily 30 0 CENTRUM SILVER TABLET take 1 tablet daily 30 0 MOBIC TABLET 7.5MG PO 1 QD 0 azithromycin (ZITHROMAX) 250 mg tablet Take two pills day one then one pill days 2-5. Take with food. 6 tablet 0 [] Estratest 1 milligram PO 1.0 tablet PO qd 0.0 0 No current facility-administered medications for this visit. Social History Tobacco Use Smoking status: Never Smokeless tobacco: Never Vaping Use Vaping Use: Never used Alcohol Use: Not on file Tobacco Use: Never History reviewed. No pertinent family history. Review of Systems Skin: Patient has a skin tear on her left forearm she was in a store and hit it against a coat metal ceiling hanger. This caused a skin tear and they bring her in for evaluation. Apparently she just had a skin tear the other day and had to have that repaired and she was hoping that this 1 could be fixed as easily as that 1 but it is a pretty torn up area of skin. The skin tear is approximately 8 cm long and approximately 6 cm wide. There are 2 strands of skin that are left it tore some of the skin off. All other systems reviewed and are negative. BP 152/82 Pulse 86 Temp 97.5 Resp 18 Wt 130 lb (59.0kg) SpO2 97% Physical Exam Vitals and nursing note reviewed. Constitutional: Appearance: Normal appearance. HENT: Head: Normocephalic. Skin: General: Skin is warm. Comments: There is an 8 cm x 6 cm skin tear on the left forearm. The skin left to cover this is notsufficient it is rolled dried and pulled away and is not going to be sufficient to cover this wound. Leaving the skin flap on is going to be a site or nidus for infection. So we need to actually remove the skin flap it did not go very deep it is right in the upper layers but that flap is not viable. The patient is not very happy with my choice but I think that we do need to remove these flaps. Thewound was properly cleansed with a little bit of baby shampoo and saline which the patient stated really burned and it was cleansed off and I clipped of the skin and patient tolerated that fairly well. The wound is now just open is very superficial. We did place a Xeroform gauze on it impregnated with the Vaseline and then wrapped and put a little bit of compression bandage on that she is on blood thinners were try to get this to stop bleeding the patient was advised to wash this wound twice daily. She is to use a gentle soap pat it dry and then apply her dressing. She is to follow with her family doctor. She is already updated on her tetanus which was in 2017. I did [address] the patient on anantibiotic. Patient's daughter was present in the room and I gave instruction to her as well. Neurological: Mental Status: She is alert. ASSESSMENT/PLAN: 1. Skin tear of forearm without complication, left, initial encounter - ICD9: 881.00, ICD10: S51.812A - AZITHROMYCIN 250 MG TABLET Vicky Chisholm [facility] NoteHNO ID: [id number] Author: Heather Lei LPN Service: ? Author Type: LICENSED NURSE Type: Progress Notes Filed: 08/03/2022 7:02 PM Note Text: Non adherant dressing applied, patient tolerated well.Heather Lei [facility]10-06-2022 NoteHNO ID: [id number] Author: Nicole Link MD Service: ? Author Type: Physician Type: Progress Notes Filed: 08/03/2022 5:17 PM Note Text: Jeanine Collazo is a 82 year old FEMALE who presents with Laceration (Cut to right arm, cut by metal door about 2 hours ago, 4.0cm , tetnus up to date) Hit by a heavy door on the right forearm at a restaurant She had a skin tear on the upper part of her right forearm Mild blood oozing Can move her elbow normally No other injury or the problem at this visit Patient stated that her tetanus vaccination status is up-to-date History reviewed. No pertinent past medical history. ACTIVE PROBLEM LIST Cardiac Pacemaker in Situ Atrioventricular Block, Unspecified Atrial Fibrillation (Hcc) Current Outpatient Medications Medication Sig Dispense Refill warfarin (COUMADIN) 5 mg tablet Take 5 mg by mouth once daily. tiZANidine (ZANAFLEX) 4 mg tablet Take by mouth. carvedilol (COREG) 6.25 mg tablet Take by mouth. NADOLOL 20MG TABLET qd 0 AVAPRO 150MG TABLET qd 0 TAMBOCOR 150MG TABLET 1/2 tab bid 0 FISH OIL 1000MG CAPSULE qd 0 AUDIE 500MG CAPSULE qd 0 LASIX 40MG TABLET Take one(1) tablet twice daily. 30 0 FIBERCON 625MG TABLET take 1 tablet daily 30 0 CENTRUM SILVER TABLET take 1 tablet daily 30 0 MOBIC TABLET 7.5MG PO 1 QD 0 [] Estratest 1 milligram PO 1.0 tablet PO qd 0.0 0 No current facility-administered medications for this visit. Social History Tobacco Use Smoking status: Never Smokeless tobacco: Never Vaping Use Vaping Use: Never used Alcohol Use: Not on file Tobacco Use: Never History reviewed. No pertinent family history. Review of Systems Musculoskeletal: Negative. Skin: Skin tear right forearm Neurological: Negative. All other systems reviewed and are negative. BP 130/90 Pulse 60 Resp 16 Wt 131 lb (59.4kg) SpO2 96% Physical Exam Vitals reviewed. Constitutional: General: She is not in acute distress. Appearance: Normal appearance. She is not ill-appearing or toxic-appearing. Cardiovascular: Rate and Rhythm: Normal rate and regular rhythm. Heart sounds: Normal heart sounds. Pulmonary: Effort: Pulmonary effort is normal. Breath sounds: Normal breath sounds. Musculoskeletal: General: No swelling or tenderness. Normal range of motion. Skin: Comments: She has 4 cm long superficial skin tear on the proximal part of the right forearm extensor area, very mild blood oozing no significant bleeding. The skin appears to rolled up. I gently used a Q-tip and put the skin back into its place and close the bed of the wound quite well, the skin approximation was back to its skin tear line. Wound cleaning and dressing was done Neurological: Mental Status: She is alert. ASSESSMENT/PLAN: 1. Skin tear of right forearm without complication, initial encounter - ICD9: 881.00, ICD10: S51.811A Explained to patient that this is a superficial skin tear and I have placed the skin back to its position and dressing has been applied. She has multiple antibiotic allergies so I decided not to prescribe her any the antibiotic right now, but if it is infected then in that case she will need antibiotic treatment return as needed or follow-up with her doctor. Patient understood - APPLICATION, RIGID DRESSING Home wound care as explained F/u PCP for further care recheck if any problem Patient has multiple antibiotic allergies So I decided not to give antibiotic right now He may return if there is any sign of inflammation or infection as I explained to her Nicole Link [facility]10-06-2022 History of Present illness Narrative* Heather Lei LPN - 08/03/2022 7:01 PM EDT Non adherant dressing applied, patient tolerated well.Heather Lei LPN * Nicole Link MD - 08/03/2022 5:09 PM EDT Jeanine Collazo is a 82 year old FEMALE who presents with Laceration (Cut to right arm, cut by metal door about 2 hours ago, 4.0cm , tetnus up to date) Hit by a heavy door on the right forearm at a restaurant She had a skin tear on the upper part of her right forearm Mild blood oozing Can move her elbow normally No other injury or the problem at this visit Patient stated that her tetanus vaccination status is up-to-date History reviewed. No pertinent past medical history. ACTIVE PROBLEM LIST Cardiac Pacemaker in Situ Atrioventricular Block, Unspecified Atrial Fibrillation (Hcc) Current Outpatient Medications Medication Sig Dispense Refill warfarin (COUMADIN) 5 mg tablet Take 5 mg by mouth once daily. tiZANidine (ZANAFLEX) 4 mg tablet Take by mouth. carvedilol (COREG) 6.25 mg tablet Take by mouth. NADOLOL 20MG TABLET qd 0 AVAPRO 150MG TABLET qd 0 TAMBOCOR 150MG TABLET 1/2 tab bid 0 FISH OIL 1000MG CAPSULE qd 0 AUDIE 500MG CAPSULE qd 0 LASIX 40MG TABLET Take one(1) tablet twice daily. 30 0 FIBERCON 625MG TABLET take 1 tablet daily 30 0 CENTRUM SILVER TABLET take 1 tablet daily 30 0 MOBIC TABLET 7.5MG PO 1 QD 0 [] Estratest 1 milligram PO 1.0 tablet PO qd 0.0 0 No current facility-administered medications for this visit. Social History Tobacco Use Smoking status: Never Smokeless tobacco: Never Vaping Use Vaping Use: Never used Alcohol Use: Not on file Tobacco Use: Never History reviewed. No pertinent family history. Review of Systems Musculoskeletal: Negative. Skin: Skin tear right forearm Neurological: Negative. All other systems reviewed and are negative. BP 130/90 Pulse 60 Resp 16 Wt 131 lb (59.4kg) SpO2 96% Physical Exam Vitals reviewed. Constitutional: General: She is not in acute distress. Appearance: Normal appearance. She is not ill-appearing or toxic-appearing. Cardiovascular: Rate and Rhythm: Normal rate and regular rhythm. Heart sounds: Normal heart sounds. Pulmonary: Effort: Pulmonary effort is normal. Breath sounds: Normal breath sounds. Musculoskeletal: General: No swelling or tenderness. Normal range of motion. Skin: Comments: She has 4 cm long superficial skin tear on the proximal part of the right forearm extensor area, very mild blood oozing no significant bleeding. The skin appears to rolled up. I gently useda Q-tip and put the skin back into its place and close the bed of the wound quite well, the skin approximation was back to its skin tear line. Wound cleaning and dressing was done Neurological: Mental Status: She is alert. ASSESSMENT/PLAN: 1. Skin tear of right forearm without complication, initial encounter - ICD9: 881.00, ICD10: S51.811A Explained to patient that this is a superficial skin tear and I have placed the skin back to its position and dressing has been applied. She has multiple antibiotic allergies so I decided not to prescribe her any the antibiotic right now, but if it is infected then in that case she will need antibiotic treatment return as needed or follow-up with her doctor. Patient understood - APPLICATION, RIGID DRESSING Home wound care as explained F/u PCP for further care recheck if any problem Patient has multiple antibiotic allergies So I decided not to give antibiotic right now He may return if there is any sign of inflammation or infection as I explained to her Nicole Link MD [facility] Instructions* Patient Instructions* Nicole Link MD - 08/03/2022 5:13 PM EDT Home wound care as explained F/u PCP for further care recheck if any problem Patient has multiple antibiotic allergies So I decided not to give antibiotic right now He may return if there is any sign of inflammation or infection as I explained to her documented [facility] SARS-CoV-2 (COVID-19) RNA NERY+probe Ql (Nph)Negative *NA* (07/06/22 3:42 PM)AO Auto Urine [id number] Hospital Discharge instructions Patient Education 04/03/2022 12:55:14 Hip Contusion Hip Contusion A contusion is another word for a bruise. It happens when small blood vessels break open and leak blood into the nearby area. A hip contusion can result from a bump, hit, or fall. Symptoms of a contusion often include changes in skin color (bruising), swelling, and pain. It may take several hours for a deep bruise to show up. If the injury is severe, you may need an X-ray to check for broken bones. Swelling should decrease in a few days. Bruising and pain may take several weeks to go away. Home care Unless another medicine was prescribed, you may take acetaminophen, ibuprofen, or naproxen to help relieve pain and swelling. If needed, stronger pain medicines may be prescribed. Take all medicines as directed. Ice the bruised area to help reduce pain and swelling. Wrap a cold source (ice pack or ice cubes amrit plastic bag) in a thin towel. Apply the cold source to the bruised area for 20 minutes every 1 to2 hours the first day. Continue this 3 to 4 times a day until the pain and swelling goes away. If walking causes pain, use crutches or a walker until you can walk without pain. These items can be rented at most pharmacies and orthopedic supply stores. If your injury is keeping you from moving around or caring for yourself properly, you may qualify for services such as home healthcare. Check with your doctor and insurance company to see if this type of care is covered. Follow-up Follow up with your healthcare provider as advised. When to seek medical advice Call your healthcare provider right away if any of these occur: Increased pain, bruising, or swelling near the injured area Decreased ability to bear weight on the injured side Pain or swelling develops below the knee Chest pain or shortness of breath [id number] [employer]. [address] [place] [address]. All rights reserved. This information is not intended as a substitute for professional medical care. Always follow yourhealthcare professional's instructions. Follow Up Care 04/03/2022 11:43:03 With:ZOHRA PEÑALOZA MD Address: [address] [facility] [place] [address]- When:2-4 days [facility] 01-03-2022 Hospital Discharge instructions Patient Education 10/31/2021 18:35:13 RAMA Wrap RAMA Wrap Minor muscle or joint injuries are often treated with an elastic bandage. The bandage provides support and compression to the injured area. An elastic bandage is a stretchy, rolled bandage. Elastic bandages range in width from 2 to 6 inches. They can be used for a variety of injuries. The bandages are often called RAMA bandages, after the most common brand name. If used correctly, elastic bandages help control swelling and ease pain. An elastic bandage is alsoa good reminder not to overuse the injured area. However, elastic bandages do not provide a lot of support and will not prevent reinjury. Home care To apply an elastic bandage: Check the skin before wrapping the injury. It should be clean, dry, and free of drainage. Start wrapping below the injury and work your way toward the body. For an ankle sprain, start wrapping around the foot and work up toward the calf. This will help control swelling. Overlap the edges of the bandage so it stays snuggly in place. Wrap the bandage firmly, but not too tightly. A tight bandage can increase swelling on either end of the bandage. Make sure the bandage is wrinkle free. Leave fingers and toes exposed. Secure ends of the bandage (even self-sticking ones) with clips or tape. Check often to be sure there is good circulation, especially in the fingers and toes. Loosen the bandage if there is local swelling, numbness, tingling, discomfort, coldness, or discoloration (skin pale or bluish in color). Rewrap the bandage as needed during the day. Reroll the bandage as you unwind it. Continue using the elastic bandage until the pain and swelling are gone or as your healthcare provider advises. If you have been told to ice the area, the ice can be secured in place with the elastic bandage. Wrap the ice pack with a thin towel to protect the skin. Don't put ice or an ice pack directly on the skin. Ice the area for no more than 20 minutes at a time. Follow-up care Follow up with your healthcare provider, or as advised. When to seek medical advice Call your healthcare provider for any of the following: Pain and swelling that doesn't get better or gets worse Trouble moving injured area Skin discoloration, numbness, or tingling that doesn t go away after bandage is removed [id number] [employer]. [address] [place] [address], [place] [address]. All rights reserved. This information is not intended as a substitute for professional medical care. Always follow [place] professional's instructions. 10/31/2021 18:18:01 Hematoma Hematoma A hematoma is a collection of blood trapped outside of a blood vessel. It is what we think of as a bruise or a contusion. It is usually seen under the skin as a black and blue spot on your arm or leg, or a bump on your head after an injury. It can be almost anywhere on or in your body. It can also occur in an internal organ where it can be more serious. A hematoma is caused by an injury with damage to small blood vessels. This causes blood to leak into the tissues. Blood forms a pocket under the skin that swells and looks like a purplish patch. Hematomas sometimes form under the skin from bleeding during childbirth and can be particularly serious.Another serious form of hematoma forms after a fall on the head, called a subdural hematoma. Gradually the blood in the hematoma is absorbed back into the body. The swelling and pain of the hematoma will go away. This takes from 1 to 4 weeks, depending on the size of the hematoma. The skin over the hematoma may turn bluish then brown and yellow as the blood is dissolved and absorbed. Usually, this only takes a couple of weeks but can last months. Home care Limit motion of the joints near the hematoma. If the hematoma is large and painful, avoid sports and other vigorous physical activity until the swelling and pain goes away. Apply an ice pack (ice cubes in a plastic bag, or a frozen bag of peas, wrapped in a thin towel) over the injured area for 20 minutes every 1 to 2 hours the first day. Continue with ice packs 3 to 4 times a day for the next 2 days. Continue the use of ice packs for relief of pain and swelling as needed. If you need anything for pain, you can take acetaminophen, unless you were given a different pain medicine to use. Talk with your healthcare provider before using this medicine if you have chronic liver or kidney disease. Also talk with your healthcare provider if you have had a stomach ulcer or digestive tract bleeding, or are taking blood-thinner medicines. Follow-up care Follow up with your healthcare provider, or as advised. If X-rays or a CT scan were done, you will be notified if there is a change in the reading, especially if it affects treatment. When to seek medical advice Call your healthcare provider right away if any of the following occur: Redness around the hematoma Increase in pain or warmth in the hematoma Increase in size of the hematoma Fever of 100.4 F (38 C) or higher, or as directed by your healthcare provider If the hematoma is on the arm or leg, watch for: oIncreased swelling or pain in the extremity oNumbness or tingling or blue color of the hand or foot [id number] [employer] [address] [place] [address]. All rights reserved. This information is not intended as a substitute for professional medical care. Always follow yourhealthcare professional's instructions. Follow Up Care 10/31/2021 16:09:50 With:ZOHRA PEÑALOZA MD Address: [address] [facility] [place] [address]- When:2-4 days With:Go to emergency room if symptoms worsen Address:Unknown When:2-4 days [facility] 12-21-2021 Hospital Discharge instructions Patient Education 10/18/2021 06:16:03 Self-Care for Sore Throats Self-Care for Sore Throats Sore throats happen for many reasons, such as colds, allergies, and infections caused by viruses orbacteria. In any case, your throat becomes red and sore. Your goal for self-care is to reduce your discomfort while giving your throat a chance to heal. Moisten and soothe your throat Tips include the following: Try a sip of water first thing after waking up. Keep your throat moist by drinking 6 or more glasses of clear liquids every day. Run a cool-air humidifier in your room overnight. Avoid cigarette smoke. Suck on throat lozenges, cough drops, hard candy, ice chips, or frozen fruit- juice bars. Use the sugar-free versions if your diet or medical condition requires them. Gargle to ease irritation Gargling every hour or 2 can ease irritation. Try gargling with 1 of these solutions: 1/4 teaspoon of salt in 1/2 cup of warm water An lwtm-ayy-tsomxxl anesthetic gargle Use medicine for more relief Izun-syy-pzxbmsd medicine can reduce sore throat symptoms. Ask your pharmacist if you have questions about which medicine to use: Ease pain with anesthetic sprays. Aspirin or an aspirin substitute also helps. Remember, never giveaspirin to anyone 18 or younger, or if you are already taking blood thinners. For sore throats caused by allergies, try antihistamines to block the allergic reaction. Remember: unless a sore throat is caused by a bacterial infection, antibiotics won t help you. Prevent future sore throats Prevention tips include the following: Stop smoking or reduce contact with secondhand smoke. Smoke irritates the tender throat lining. Limit contact with pets and with allergy-causing substances, such as pollen and mold. When you re around someone with a sore throat or cold, wash your hands often to keep viruses or bacteria from spreading. Don t strain your vocal cords. Contact your healthcare provider if you have: A temperature over 101 F (38.3 C) White spots on the throat Great difficulty swallowing Trouble breathing A skin rash Recent exposure to someone else with strep bacteria Severe hoarseness and swollen glands in the neck or jaw [id number] [employer] [place] [address]. All rights reserved. This information is not intended as a substitute for professional medical care. Always follow yourhealthcare professional's instructions. 10/18/2021 06:16:02 Laryngitis Laryngitis Laryngitis is a swelling of the tissues around the vocal cords. Symptoms include a hoarse (scratchy) voice. Or your voice may be gone for a few days or longer. This may be caused by a viral illness, such as a head or chest cold. It may also be due to overuse and strain of your voice. Smoking, drinking alcohol, acid reflux, allergies, or inhaling harsh chemicals may also lead to symptoms. This condition will usually go away in 1-2 weeks. Home care Rest your voice until it recovers. Talk as little as possible. If your symptoms are severe, rest athome for a day or so. Moist air may help your symptoms. Try breathing cool steam from a humidifier or vaporizer. Or breathe air from a steamy shower. Drink plenty of fluids to stay well hydrated. Do not smoke Follow-up care Follow up with your healthcare provider or this facility if you are not better after 1 week. If your hoarse voice lasts more than 2 weeks, you may need to see an partnership manager. This is a doctor who treats diseases and disorders of the ear, nose, and throat (ENT). Seeing this doctor is especiallyimportant if you have a history of alcohol or tobacco use. When to seek medical advice Contact your healthcare provider if you have any of the following: Symptoms that get worse Severe pain with swallowing Trouble opening your mouth Neck swelling, neck pain, or trouble moving your neck Noisy breathing or trouble breathing Fever of 100.4 F (38. C) or higher, or as directed by your healthcare provider Drooling Symptoms do not go away in 2 weeks [id number] [employer]. [address] [place] [address], [place] [address]. All rights reserved. This information is not intended as a substitute for professional medical care. Always follow yourhealthcare professional's instructions. Follow Up Care 10/18/2021 06:06:32 With:ZOHRA PEÑALOZA MD Address: When:2-4 days [facility] 11-22-2021 Evaluation + Plan note Diagnostic Tests Pending * Antinuclear Antibody Screen, Serum 09/19/21 * Rheumatoid Factor 09/19/21 * [facility] Lab Send out (Blood Specimens) 09/19/21 Future Scheduled Tests Radiology* CT Spine Lumbar w/o Contrast 02/21/21 [facility] 11-15-2021 Hospital Discharge instructions Patient Education 09/12/2021 20:29:03 Bladder Infection, Female (Adult) Bladder Infection, Female (Adult) Urine is normally doesn't have any bacteria in it. But bacteria can get into the urinary tract fromthe skin around the rectum. Or they can travel in the blood from elsewhere in the body. Once they are in your urinary tract, they can cause infection in the urethra (urethritis), the bladder (cystitis), or the kidneys (pyelonephritis). The most common place for an infection is in the bladder. This is called a bladder infection. This is one of the most common infections in women. Most bladder infections are easily treated. They are not serious unless the infection spreads to the kidney. The phrases bladder infection, UTI, and cystitis are often used to describe the same thing. But they are not always the same. Cystitis is an inflammation of the bladder. The most common cause of cystitis is an infection. Symptoms The infection causes inflammation in the urethra and bladder. This causes many of the symptoms. Themost common symptoms of a bladder infection are: Pain or burning when urinating Having to urinate more often than usual Urgent need to urinate Only a small amount of urine comes out Blood in urine Abdominal discomfort. This is usually in the lower abdomen above the pubic bone. Cloudy urine Strong- or bad-smelling urine Unable to urinate (urinary retention) Unable to hold urine in (urinary incontinence) Fever Loss of appetite Confusion (in older adults) Causes Bladder infections are not contagious. You can't get one from someone else, from a toilet seat, or from sharing a bath. The most common cause of bladder infections is bacteria from the bowels. The bacteria get onto the skin around the opening of the urethra. From there, they can get into the urine and travel up to thebladder, causing inflammation and infection. This usually happens because of: Wiping improperly after urinating. Always wipe from front to back. Bowel incontinence Procedures such as having a catheter inserted Older age Not emptying your bladder. This can allow bacteria a chance to grow in your urine. Dehydration Constipation Sex Use of a diaphragm for control Treatment Bladder infections are diagnosed by a urine test. They are treated with antibiotics and usually clear up quickly without complications. Treatment helps prevent a more serious kidney infection. Medicines Medicines can help in the treatment of a bladder infection: Take antibiotics until they are used up, even if you feel better. It is important to finish them tomake sure the infection has cleared. You can use acetaminophen or ibuprofen for pain, fever, or discomfort, unless another medicine was prescribed. If you have chronic liver or kidney disease, talk with your healthcare provider before using these medicines. Also talk with your provider if you've ever had a stomach ulcer or gastrointestinal bleeding, or are taking blood-thinner medicines. If you are given phenazopydridine to reduce burning with urination, it will cause your urine to become a bright orange color. This can stain clothing. Care and prevention These self-care steps can help prevent future infections: Drink plenty of fluids to prevent dehydration and flush out your bladder. Do this unless you must restrict fluids for other health reasons, or your doctor told you not to. Proper cleaning after going to the bathroom is important. Wipe from front to back after using the toilet to prevent the spread of bacteria. Urinate more often. Don't try to hold urine in for a long time. Wear loose-fitting clothes and cotton underwear. Avoid tight-fitting pants. Improve your diet and prevent constipation. Eat more fresh fruit and vegetables, and fiber, and less junk and fatty foods. Avoid sex until your symptoms are gone. Avoid caffeine, alcohol, and spicy foods. These can irritate your bladder. Urinate right after intercourse to flush out your bladder. If you use control pills and have frequent bladder infections, discuss it with your doctor. Follow-up care Call your healthcare provider if all symptoms are not gone after 3 days of treatment. This is especially important if you have repeat infections. If a culture was done, you will be told if your treatment needs to be changed. If directed, you cancall to find out the results. If X-rays were done, you will be told if the results will affect your treatment. Call 911 Call 911 if any of the following occur: Trouble breathing Hard to wake up or confusion Fainting or loss of consciousness Rapid heart rate When to seek medical advice Call your healthcare provider right away if any of these occur: Fever of 100.4 F (38.0 C) or higher, or as directed by your healthcare provider Symptoms are not better by the third day of treatment Back or belly (abdominal) pain that gets worse Repeated vomiting, or unable to keep medicine down Weakness or dizziness Vaginal discharge Pain, redness, or swelling in the outer vaginal area (labia) [id number] [employer] [address] [place] [address]. All rights reserved. This information is not intended as a substitute for professional medical care. Always follow yourhealthcare professional's instructions. Follow Up Care 09/12/2021 19:39:58 With:ZOHRA PEÑALOZA MD Address: When:2-4 days [facility] 11-15-2021 Evaluation + Plan note Diagnostic Tests Pending * Urine Culture 09/12/21 Future Scheduled Tests Radiology* CT Spine Lumbar w/o Contrast 02/21/21 [facility] 04-26-2021 Evaluation + Plan note Future Scheduled Tests Radiology* CT Spine Lumbar w/o Contrast 02/21/21 [facility] Evaluation + Plan note Future Appointments Appointment Date:10/19/2021 02:45:00 PM Scheduled Provider:ZOHRA PEÑALOZA MD Location:[facility] Appointment Type:PC OV Future Scheduled Tests Radiology* CT Spine Lumbar w/o Contrast 02/21/21 [facility] Evaluation + Plan note Future Appointments Appointment Date:11/03/2021 01:15:00 PM Scheduled Provider:ZOHRA PEÑALOZA MD Location:[facility] Appointment Type:PC OV ED Follow Up Diagnostic Tests Pending * PTH, Intact 10/31/21 Future Scheduled Tests Radiology* CT Spine Lumbar w/o Contrast 02/21/21 [facility] Evaluation + Plan note Future Appointments Appointment Date:11/03/2021 01:15:00 PM Scheduled Provider:ZOHRA PEÑALOZA MD Location:[facility] Appointment Type:PC OV ED Follow Up Future Scheduled Tests Radiology* CT Spine Lumbar w/o Contrast 02/21/21 [facility] evaluation + Plan note Future Appointments Appointment Date:03/29/2022 02:30:00 PM Scheduled Provider: Location:[facility] Appointment Type:ACC POC Established Patient Appointment Date:05/12/2022 02:30:00 PM Scheduled Provider:ZOHRA PEÑALOZA MD Location:[facility] Appointment Type:PC OV Controlled Medication Future Scheduled Tests Radiology* CT Abdomen/Pelvis w/Oral Contrast Only 01/12/22 * XR Chest 2 Views (PA & Lateral) 03/13/22 * XR Chest 2 Views (PA & Lateral) 03/08/22 * CT Abdomen and Pelvis w/ contrast 01/18/22 [facility] Evaluation + Plan note Future Appointments Appointment Date:04/17/2022 02:30:00 PM Scheduled Provider: Location:[facility] Appointment Type:ACC POC Established Patient Appointment Date:05/12/2022 02:30:00 PM Scheduled Provider:ZOHRA PEÑALOZA MD Location:[facility] Appointment Type:PC OV Controlled Medication Future Scheduled Tests Radiology* CT Abdomen/Pelvis w/Oral Contrast Only 01/12/22 * XR Chest 2 Views (PA & Lateral) 03/13/22 * XR Chest 2 Views (PA & Lateral) 03/08/22 * CT Abdomen and Pelvis w/ contrast 01/18/22 [facility] Evaluation + Plan note Future Appointments Appointment Date:05/05/2022 01:45:00 PM Scheduled Provider:[place] [id number] Location:[facility] Appointment Type:PT Outpatient Evaluation Appointment Date:05/12/2022 02:30:00 PM Scheduled Provider:ZOHRA PEÑALOZA MD Location:[facility] Appointment Type:PC OV Controlled Medication Future Scheduled Tests Radiology* XR Chest 2 Views (PA & Lateral) 03/13/22 * XR Chest 2 Views (PA & Lateral) 03/08/22 [facility] Evaluation + Plan note Future Appointments Appointment Date:07/12/2022 10:45:00 AM Scheduled Provider: Location:[facility] Appointment Type:PT Treatment - [place] Appointment Date:07/17/2022 11:00:00 AM Scheduled Provider: Location:[facility] Appointment Type:PT Treatment - [place] Appointment Date:07/18/2022 02:30:00 PM Scheduled Provider: Location:[facility] Appointment Type:ACC POC Established Patient Future Scheduled Tests Radiology* XR Chest 2 Views (PA & Lateral) 03/13/22 * XR Chest 2 Views (PA & Lateral) 03/08/22 [facility] Evaluation + Plan note Future Appointments Appointment Date:09/22/2022 02:45:00 PM Scheduled Provider: Location:[facility] Appointment Type:PC Nurse Protime Appointment Date:09/27/2022 02:30:00 PM Scheduled Provider: Location:[facility] Appointment Type:ACC POC Established Patient Future Scheduled Tests Radiology* XR Chest 2 Views (PA & Lateral) 03/13/22 * XR Chest 2 Views (PA & Lateral) 03/08/22 [facility] evaluation + Plan note Future Appointments Appointment Date:10/17/2022 02:30:00 PM Scheduled Provider: Location:[facility] Appointment Type:ACC POC Established Patient Future Scheduled Tests Radiology* XR Chest 2 Views (PA & Lateral) 03/13/22 * XR Chest 2 Views (PA & Lateral) 03/08/22 [facility] evaluation + Plan note Future Appointments Appointment Date:11/24/2022 02:00:00 PM Scheduled Provider: Location:[facility] Appointment Type:ACC POC Established Patient Future Scheduled Tests Radiology* XR Chest 2 Views (PA & Lateral) 03/13/22 * XR Chest 2 Views (PA & Lateral) 03/08/22 [facility] evaluation + Plan note Future Appointments Appointment Date:12/21/2022 02:30:00 PM Scheduled Provider: Location:[facility] Appointment Type:ACC POC Established Patient Future Scheduled Tests Radiology* XR Chest 2 Views (PA & Lateral) 03/13/22 * XR Chest 2 Views (PA & Lateral) 03/08/22 [facility] evalukwooh + Plan note Future Appointments Appointment Date:02/01/2023 01:30:00 PM Scheduled Provider: Location:[facility] Appointment Type:ACC POC Established Patient Future Scheduled Tests Radiology* XR Chest 2 Views (PA & Lateral) 03/13/22 * XR Chest 2 Views (PA & Lateral) 03/08/22 [facility] evaluation + Plan note Future Appointments Appointment Date:02/02/2023 02:30:00 PM Scheduled Provider: Location:[facility] Appointment Type:ACC POC Established Patient Future Scheduled Tests Radiology* XR Chest 2 Views (PA & Lateral) 03/13/22 * XR Chest 2 Views (PA & Lateral) 03/08/22 [facility] evaluation + Plan note Future Appointments Appointment Date:02/09/2023 03:30:00 PM Scheduled Provider:ZOHRA PEÑALOZA MD Location:[facility] Appointment Type:PC OV Controlled Medication Appointment Date:03/02/2023 01:00:00 PM Scheduled Provider: Location:[facility] Appointment Type:ACC POC Established Patient Future Scheduled Tests Radiology* XR Chest 2 Views (PA & Lateral) 03/13/22 * XR Chest 2 Views (PA & Lateral) 03/08/22 [facility] Evaluation + Plan note Future Appointments Appointment Date:03/02/2023 01:00:00 PM Scheduled Provider: Location:[facility] Appointment Type:ACC POC Established Patient Appointment Date:03/29/2023 02:30:00 PM Scheduled Provider:ZOHRA PEÑALOZA MD Location:[facility] Appointment Type:PC OV Future Scheduled Tests Laboratory* C-Reactive Protein 02/09/23 * Magnesium Level 02/09/23 * Thyroid Stimulating Hormone 02/09/23 * Free T4 02/09/23 * Uric Acid 02/09/23 * Complete Blood Count 02/09/23 * Lipid Profile 02/09/23 * Vitamin D Level 02/09/23 * Complete Metabolic Panel 02/09/23 * N-Terminal proBNP 02/09/23 Radiology* XR Chest 2 Views (PA & Lateral) 03/13/22 * XR Chest 2 Views (PA & Lateral) 03/08/22 [facility] Evaluation + Plan note Future Appointments Appointment Date:02/27/2023 03:00:00 PM Scheduled Provider: Location:[facility] Appointment Type:ACC POC Established Patient Appointment Date:03/29/2023 02:30:00 PM Scheduled Provider:ZOHRA PEÑALOZA MD Location:[facility] Appointment Type:PC OV Future Scheduled Tests Laboratory* C-Reactive Protein 02/09/23 * Magnesium Level 02/09/23 * Thyroid Stimulating Hormone 02/09/23 * Free T4 02/09/23 * Uric Acid 02/09/23 * Complete Blood Count 02/09/23 * Lipid Profile 02/09/23 * Vitamin D Level 02/09/23 * Complete Metabolic Panel 02/09/23 * N-Terminal proBNP 02/09/23 Radiology* XR Chest 2 Views (PA & Lateral) 03/13/22 * XR Chest 2 Views (PA & Lateral) 03/08/22 [facility] evaluation + Plan note Future Appointments Appointment Date:03/28/2023 02:00:00 PM Scheduled Provider: Location:[facility] Appointment Type:ACC POC Established Patient Appointment Date:03/29/2023 02:30:00 PM Scheduled Provider:ZOHRA PEÑALOZA MD Location:[facility] Appointment Type:PC OV Future Scheduled Tests Radiology* XR Chest 2 Views (PA & Lateral) 03/13/22 * XR Chest 2 Views (PA & Lateral) 03/08/22 [facility] evaluiqcim + Plan note Future Appointments Appointment Date:03/28/2023 02:00:00 PM Scheduled Provider: Location:[facility] Appointment Type:ACC POC Established Patient Appointment Date:03/29/2023 02:30:00 PM Scheduled Provider:ZOHRA PEÑALOZA MD Location:[facility] Appointment Type:PC OV Future Scheduled Tests Radiology* XR Chest 2 Views (PA & Lateral) 03/13/22 [facility] evaluation + Plan note Future Appointments Appointment Date:04/25/2023 02:30:00 PM Scheduled Provider: Location:[facility] Appointment Type:ACC POC Established Patient [facility] evaluation + Plan note Future Appointments Appointment Date:04/13/2023 01:00:00 PM Scheduled Provider:[place] [id number] Location:[facility] Appointment Type:PT Outpatient Evaluation Appointment Date:04/25/2023 02:30:00 PM Scheduled Provider: Location:[facility] Appointment Type:ACC POC Established Patient [facility] Evaluation + Plan note Future Appointments Appointment Date:04/24/2023 02:00:00 PM Scheduled Provider:ZOHRA PEÑALOZA MD Location:[facility] Appointment Type:PC OV Appointment Date:04/25/2023 02:30:00 PM Scheduled Provider: Location:[facility] Appointment Type:ACC POC Established Patient [facility] Evaluation + Plan note Future Appointments Appointment Date:05/22/2023 02:30:00 PM Scheduled Provider: Location:[facility] Appointment Type:ACC POC Established Patient Diagnostic Tests Pending * Rheumatoid Factor 04/24/23 * Antinuclear Antibody Screen, Serum 04/24/23 * Vitamin B12 Level 04/24/23 Future Scheduled Tests Radiology* CT Shoulder w/o Contrast Left 04/24/23 [facility] Evaluation + Plan note Future Appointments Appointment Date:05/07/2023 03:30:00 PM Scheduled Provider:[place] [id number] Location:[facility] Appointment Type:PT Outpatient Evaluation Appointment Date:05/22/2023 02:30:00 PM Scheduled Provider: Location:[facility] Appointment Type:ACC POC Established Patient Future Scheduled Tests Radiology* CT Shoulder w/o Contrast Left 04/24/23 [facility] Evaluation + Plan note Future Appointments Appointment Date:05/17/2023 03:00:00 PM Scheduled Provider: Location:[facility] Appointment Type:PT Treatment - [place] Appointment Date:05/22/2023 02:30:00 PM Scheduled Provider: Location:[facility] Appointment Type:ACC POC Established Patient Appointment Date:05/22/2023 03:45:00 PM Scheduled Provider: Location:[facility] Appointment Type:PT Treatment - [place] Appointment Date:05/24/2023 02:15:00 PM Scheduled Provider: Location:[facility] Appointment Type:PT Treatment - [place] Diagnostic Tests Pending * TOMA (serum) 05/15/23 * Methylmalonic Acid 05/15/23 * Rheumatoid Factor 05/15/23 * Cyclic Citrullinated Peptide 05/15/23 Future Scheduled Tests Radiology* CT Shoulder w/o Contrast Left 04/24/23 [facility] Evaluation + Plan note Future Appointments Appointment Date:05/28/2023 02:30:00 PM Scheduled Provider: Location:[facility] Appointment Type:PT Treatment - [place] Appointment Date:05/31/2023 11:30:00 AM Scheduled Provider: Location:[facility] Appointment Type:PT Treatment - [place] Appointment Date:06/06/2023 02:00:00 PM Scheduled Provider: Location:[facility] Appointment Type:ACC POC Established Patient Future Scheduled Tests Radiology* CT Shoulder w/o Contrast Left 04/24/23 [facility] evaluation + Plan note Future Appointments Appointment Date:06/13/2023 02:30:00 PM Scheduled Provider: Location:[facility] Appointment Type:PT Treatment - [place] Appointment Date:06/15/2023 01:45:00 PM Scheduled Provider:[place] [id number] Location:[facility] Appointment Type:PT Outpatient Re-Evaluation Appointment Date:06/28/2023 10:00:00 AM Scheduled Provider: Location:[facility] Appointment Type:ACC POC Established Patient Future Scheduled Tests Radiology* CT Shoulder w/o Contrast Left 04/24/23 [facility] evaluation + Plan note Future Appointments Appointment Date:06/15/2023 01:45:00 PM Scheduled Provider:[place] [id number] Location:[facility] Appointment Type:PT Outpatient Re-Evaluation Appointment Date:06/28/2023 10:00:00 AM Scheduled Provider: Location:[facility] Appointment Type:ACC POC Established Patient Future Scheduled Tests Radiology* CT Shoulder w/o Contrast Left 04/24/23 [facility] evaluation + Plan note Future Appointments Appointment Date:06/28/2023 10:00:00 AM Scheduled Provider: Location:[facility] Appointment Type:ACC POC Established Patient Future Scheduled Tests Radiology* CT Shoulder w/o Contrast Left 04/24/23 [facility] evaluation + Plan note Future Appointments Appointment Date:07/24/2023 02:00:00 PM Scheduled Provider: Location:[facility] Appointment Type:ACC POC Established Patient Future Scheduled Tests Radiology* CT Shoulder w/o Contrast Left 04/24/23 [facility] evaluation + Plan note Future Appointments Appointment Date:08/03/2023 03:00:00 PM Scheduled Provider: Location:[facility] Appointment Type:ACC POC Established Patient Future Scheduled Tests Radiology* CT Shoulder w/o Contrast Left 04/24/23 [facility] Evaluation + Plan note Future Appointments Appointment Date:10/05/2023 02:45:00 PM Scheduled Provider: Location:[facility] Appointment Type:ACC POC Established Patient Appointment Date:10/08/2023 03:30:00 PM Scheduled Provider:[place] [id number] Location:[facility] Appointment Type:PT Outpatient Evaluation Appointment Date:11/06/2023 02:00:00 PM Scheduled Provider:ZOHRA PEÑALOZA MD Location:[facility] Appointment Type:PC OV Controlled Medication Diagnostic Tests Pending * Culture Wound Aerobic with Gram Stain 09/28/23 Future Scheduled Tests Radiology* CT Shoulder w/o Contrast Left 04/24/23 [facility] Evaluation + Plan note Future Appointments Appointment Date:10/05/2023 02:45:00 PM Scheduled Provider: Location:[facility] Appointment Type:ACC POC Established Patient Appointment Date:10/08/2023 03:30:00 PM Scheduled Provider:[place] [id number] Location:[facility] Appointment Type:PT Outpatient Evaluation Appointment Date:11/06/2023 02:00:00 PM Scheduled Provider:ZOHRA PEÑALOZA MD Location:[facility] Appointment Type:PC OV Controlled Medication Future Scheduled Tests Radiology* CT Shoulder w/o Contrast Left 04/24/23 [facility] ev1-4 Allation + Plan note Future Appointments Appointment Date:10/24/2023 02:00:00 PM Scheduled Provider: Location:[facility] Appointment Type:ACC POC Established Patient Appointment Date:11/06/2023 02:00:00 PM Scheduled Provider:ZOHRA PEÑALOZA MD Location:[facility] Appointment Type:PC OV Controlled Medication Future Scheduled Tests Radiology* CT Shoulder w/o Contrast Left 04/24/23 [facility] evaluation + Plan note Future Appointments Appointment Date:11/27/2023 02:00:00 PM Scheduled Provider: Location:[facility] Appointment Type:ACC POC Established Patient Appointment Date:02/05/2024 02:00:00 PM Scheduled Provider:ZOHRA PEÑALOZA MD Location:[facility] Appointment Type:PC OV Controlled Medication Future Scheduled Tests Radiology* CT Shoulder w/o Contrast Left 04/24/23 [facility] Evaluation + Plan note Future Appointments Appointment Date:11/26/2023 02:30:00 PM Scheduled Provider: Location:[facility] Appointment Type:ACC POC Established Patient Appointment Date:11/27/2023 02:00:00 PM Scheduled Provider: Location:[facility] Appointment Type:ACC POC Established Patient Appointment Date:02/05/2024 02:00:00 PM Scheduled Provider:ZOHRA PEÑALOZA MD Location:[facility] Appointment Type:PC OV Controlled Medication Future Scheduled Tests Radiology* CT Shoulder w/o Contrast Left 04/24/23 [facility] Evaluation note* Diagnosis Skin tear of right forearm without complication, initial encounter- Primary documented in this encounter [facility] note* Diagnosis Skin tear of forearm without complication, left, initial encounter- Primary documented in this encounter [facility] course Narrative No data available for this section [facility] Discharge instructions No data available for this section [facility] Progress note No data available for this section [facility] Summary Purpose Family History No Family History Records FoundNo Family History Records FoundNo Family History Records Found No data available for this section No data available for this section No data available for this section No data available for this section No data available for this section No data available for this section No data available for this section No data available for this section No data available for this section No data available for this section No data available for this section No data available for this section No data available for this section No data available for this section No data available for this section No data available for this section No data available for this section No Family History Records Found No data available for this section No data available for this section Advance Directives No Advanced Directives Records FoundNo Advanced Directives Records FoundNo Advanced Directives Records FoundNo Advanced Directives Records Found Additional Source Comments INFORMATION SOURCE (unrecogn ized section and content) DATE CREATED AUTHOR AUTHOR'S ORGANIZ ATION 10/31/2018 [facility] Rena Salazar DATE CREATED AUTHOR AUTHOR'S ORGANIZ ATION 08/04/2022 [facility] Ce nter DATE CREATED AUTHOR AUTHOR'S ORGANIZ ATION 11/23/2023 [facility] ([place]) Care Team (unrecognized sect ion and content) Care Team Personnel Name: Holly Monzon PT Position: P3 Scheduling - Sorter/Assay Tech Advanced Member Role: Other Name: Yari Conley Position: P3 Scheduling - Sorter/Assay Tech Advanced Member Role: Other Name: ZOHRA PEÑALOZA MD Position: P4 Physician - Primary Care Member Role: Primary Care Physician Address: Address: [address] [facility] [address] Name: Sonam Andrade Green Plumber Position: P3 Scheduling - Sorter/Assay Tech Advanced Member Role: Other Care Team Related Persons Name: MICHAEL COLLAZO Address: Home [id number] [place] [phone] [employer]zen [employer] Relationship Specialty Start Date End Date Kay Vogel [address] [place] [address] [phone] PCP - General 02/05/01 Care Team (unrecognized sect ion and content) Care Team Personnel Name: Holly Monzon PT Position: P3 Scheduling - Sorter/Assay Tech Advanced Member Role: Other Name: Fam Orozco Sorter/Assay Techvero Jones Position: P3 Scheduling - Sorter/Assay Tech Advanced Member Role: Other Name: Yari Conley Position: P3 Scheduling - Sorter/Assay Tech Advanced Member Role: Other Name: Lorin Diaz Position: P3 Scheduling - Sorter/Assay Tech Advanced Member Role: Other Name: ZOHRA PEÑALOZA MD Position: P4 Physician - Primary Care Med Service: Active Provider Member Role: Primary Care Physician Address: Address: [address] [facility] [address] [place], [place] [id number] [place] [address] Name: Sonam Andrade Green Plumber Position: P3 Scheduling - Sorter/Assay Tech Advanced Member Role: Other Name: Fam Menjivar Sorter/Assay Techvero Arreaga Position: P3 Scheduling - Sorter/Assay Tech Advanced Member Role: Other Care Team Related Persons Name: MICHAEL COLLAZO Address: Home [address] [place], [place] [phone] [place] Care Team Personnel Name: [employer] Supervisor Vicky PT Position: P3 Scheduling - Sorter/Assay Tech Advanced Member Role: Other Name: Ernesto Therapy Sorter/Assay Tech Karen Position: P3 Scheduling - Sorter/Assay Tech Advanced Member Role: Other Name: Yari Conley Position: P3 Scheduling - Sorter/Assay Tech Advanced Member Role: Other Name: Lorin Diaz Position: P3 Scheduling - Sorter/Assay Tech Advanced Member Role: Other Name: ZOHRA PEÑALOZA MD Position: P4 Physician - Primary Care Med Service: Active Provider Member Role: Primary Care Physician Address: Address: [address] [place] [address] Name: Sonam Andrade Green Plumber Position: P3 Scheduling - Sorter/Assay Tech Advanced Member Role: Other Name: Otto Therapy Sorter/Assay Tech Denita Gibson Position: P3 Scheduling - Sorter/Assay Tech Advanced Member Role: Other Care Team Related Persons Name: MICHAEL COLLAZO Address: [id number] [place] [address] Care Team Personnel Name: Na [employer] Supervisor Vicky PT Position: P3 Scheduling - Sorter/Assay Tech Advanced Member Role: Other Name: Fam Orozco Sorter/Assay Tech Karen Position: P3 Scheduling - Sorter/Assay Tech Advanced Member Role: Other Name: Yari Conley Position: P3 Scheduling - Sorter/Assay Tech Advanced Member Role: Other Name: Lorin Diaz Position: P3 Scheduling - Sorter/Assay Tech Advanced Member Role: Other Name: ZOHRA PEÑALOZA MD Position: P4 Physician - Primary Care Member Role: Primary Care Physician Address: Address: [address] [place] [address] Name: Sonam Andrade Green Plumber Position: P3 Scheduling - Sorter/Assay Tech Advanced Member Role: Other Name: Otto Therapy Sorter/Assay Tech Denita L Position: P3 Scheduling - Sorter/Assay Tech Advanced Member Role: Other Care Team Related Persons Name: MICHAEL COLLAZO Address: Home [id number] [place] [address] Care Team Personnel Name: Na [employer] Supervisor Vicky PT Position: P3 Scheduling - Sorter/Assay Tech Advanced Member Role: Other Name: Yari Conley Position: P3 Scheduling - Sorter/Assay Tech Advanced Member Role: Other Name: Lorin Diaz Position: P3 Scheduling - Sorter/Assay Tech Advanced Member Role: Other Name: ZOHRA PEÑALOZA MD Position: P4 Physician - Primary Care Member Role: Primary Care Physician Address: Address: [address] [place] [address] Name: Sonam Andrade Green Plumber Position: P3 Scheduling - Sorter/Assay Tech Advanced Member Role: Other Name: Otto Therapy Sorter/Assay Tech Denita L Position: P3 Scheduling - Sorter/Assay Tech Advanced Member Role: Other Care Team Related Persons Name: MICHAEL COLLAZO Address: Home [id number] [place], [place] [id number] Care Team Personnel Name: Na, [employer] Supervisor Vicky PT Position: P3 Scheduling - Sorter/Assay Tech Advanced Member Role: Other Name: Yari Conley Position: P3 Scheduling - Sorter/Assay Tech Advanced Member Role: Other Name: Lorin Diaz Position: P3 Scheduling - Sorter/Assay Tech Advanced Member Role: Other Name: ZOHRA PEÑALOZA MD Position: P4 Physician - Primary Care Member Role: Primary Care Physician Address: Address: [address] [place] [address] Name: Sonam Andrade Green Plumber Position: P3 Scheduling - Sorter/Assay Tech Advanced Member Role: Other Name: Otto Therapy Sorter/Assay Tech Denita Gibson Position: P3 Scheduling - Sorter/Assay Tech Advanced Member Role: Other Name: ROSENDO OLIVARES DO Position: ED Physician Member Role: Attending Physician Address: Address: [address] [place] [id number] Care Team Related Persons Name: MICHAEL COLLAZO Address: Home [id number] [place], [place] [id number] Care Team Personnel Name: Na, [employer] Supervisor Vicky PT Position: P3 Scheduling - Sorter/Assay Tech Advanced Member Role: Other Name: Yari Conley Position: P3 Scheduling - Sorter/Assay Tech Advanced Member Role: Other Name: Lorin Diaz Position: P3 Scheduling - Sorter/Assay Tech Advanced Member Role: Other Name: ZOHRA PEÑALOZA MD Position: P4 Physician - Primary Care Member Role: Primary Care Physician Address: Address: [address] [place] [address] Name: Samples, Sonam Green Plumber Position: P3 Scheduling - Sorter/Assay Tech Advanced Member Role: Other Name: Fam Menjivar Sorter/Assay Tech Denita Arreaga Position: P3 Scheduling - Sorter/Assay Tech Advanced Member Role: Other Care Team Related Persons Name: MICHAEL COLLAZO Address: Home [address] [place], [place] [phone] Source Comments (unrecognize d section and content) In the event this informatio n is protected by the Federal Confidentiality of Alcohol and Drug Abuse Patient Records regulations: The Federal rules restrict any use of the information to criminally investigate or prosecute any alcohol or drug abuse patient.[facility] the event this information is protected by the Federal Confidentiality of Alcohol and Drug Abuse Patient Records regulations: The Federal rules restrict any use of the information to criminally investigate or prosecute any alcohol or drug abuse patient.[facility] Reason for Visit (unrecogniz ed section and content) Reason Comments Derm Problem Skin tear left arm h it shopping cart 8cm FOR RECORDS PERTAINING TO PATIENTS WHO ARE OR HAVE BEEN ENROLLED IN A CHEMICAL DEPENDENCY/SUBSTANCEABUSE PROGRAM, SOME INFORMATION MAY BE OMITTED. This clinical summary was aggregated from multiple sources. Caution should be exercised in using it in the provision of clinical care. This summary normalizes information from multiple sources, and as a consequence, information in this document may materially change the coding, format and clinical context of patient data. In addition, data may be omitted in some cases. CLINICAL DECISIONS SHOULD BE BASED ON THE PRIMARY CLINICAL RECORDS. [employer] [facility]. provides no warranty or guarantee of the accuracy or completeness of information in this document.
[2023-12-07 18:32] VITALS: BP 128/63; PULSE 64; RESP 16; O2SAT 94
== END 2023-12-07 18:43 | disposition home or self-care (01) ==
PROVIDERS: Physician Assistant; Emergency Provider Emergency Medicine; PCP Family Medicine; Visit Provider Emergency Medicine
DX: E87.1 Hypo-osmolality and hyponatremia (principal); I11.0 Hypertensive heart disease with heart failure; I50.9 Heart failure, unspecified; I25.10 Atherosclerotic heart disease of native coronary artery without angina pectoris; Z79.899 Other long term (current) drug therapy; Z79.51 Long term (current) use of inhaled steroids; Z79.01 Long term (current) use of anticoagulants; Z95.0 Presence of cardiac pacemaker
CPT/HCPCS: 71046; 80048; 83880; 85025; 93005; 99283

== ENCOUNTER 2023-12-17 05:34 | Inpatient (IN) | payer MEDICARE, SELFPAY ==
[2023-12-17] VITALS (7 sets, daily range): BP systolic 104–158; BP diastolic 66–96; PULSE 60–91; RESP 16–20; TEMP 36.3–36.7; O2SAT 93–98; BMI 24.5; BMI 23.5
--- NOTE | 2023-12-17 06:20 | EX.ED.DYSGE1 ---
HPI History of Present Illness Chief Complaint: Edema Onset/Context/Timing Onset: Yesterday Context: Gradual Onset Timing: Continuous Quality: Edema Location: Lower extremities Worsened by: Nothing Relieved by: Nothing Narrative Narrative: Patient presents with lower extremity edema that has been getting worse since yesterday. Patient states she had her diuretics discontinued recently. Patient states her legs started to swell up shortly after that. Patient was restarted on her Lasix and Aldactone. Patient states that she is still having some swelling in her feet and ankles. Patient admits to some 3 pillow orthopnea. Patient states this is typical for her. Patient states nothing makes her swelling better or worse. Patient is concerned that she may have some fluid around her heart which is causing her to have shortness of breath. [facility] Medical History AV block, complete CAD (coronary artery disease) Diastolic congestive heart failure Diverticulitis Essential hypertension Hyperlipidemia penitentiary current use of anticoagulant Longstanding persistent atrial fibrillation Nonrheumatic mitral valve regurgitation Osteoarthrosis Pericardial effusion Pneumonia Pulmonary hypertension Tear of biceps muscle Home Medications cetirizine 10 mg capsule (Zyrtec) 10 mg PO DAILY PRN allergy symptoms 06/08/20 [History Last Taken Unknown] docusate sodium 100 mg capsule (Stool Softener) 100 mg PO BID 06/03/21 [History Last Taken Unknown] albuterol sulfate 90 mcg/actuation aerosol inhaler 2 puff inhalation Q6H PRN shortness of breath or wheezing 03/22/22 [History Last Taken Unknown] warfarin 1 mg tablet 1 mg PO .COMPLEX 03/22/22 [History Last Taken Unknown] calcitriol 0.25 mcg capsule 0.25 mcg PO DAILY 06/05/22 [History Last Taken Unknown] Lactobacillus rhamnosus GG 5 billion cell chewable tablet ([employer]s Probiotics) 1 tab PO DAILY PRN probiotic 02/20/23 [History Last Taken Unknown] carvedilol 6.25 mg tablet 6.25 mg PO BID #180 tabs 02/20/23 [Rx Last Taken Unknown] hydrocodone-acetaminophen 5-325mg 5mg-325mg 1 tab PO 4X/DAY PRN PRN Pain 02/20/23 [History Last Taken Unknown] pclxbgly-vtxc-khzy 8 mg-folic 400 mcg-K 50 mcg-lutein 300 mcg tablet 1 tab PO DAILY 02/20/23 [History Last Taken Unknown] levomefolate Ca 3 mg-B6 35 mg-meB12 2 mg-algal oil 90.314 mg capsule (Metanx (algal oil)) 1 cap PO DAILY from [facility] 07/04/23 [History Last Taken Unknown] spironolactone 50 mg tablet 50 mg PO DAILY #90 tabs 07/04/23 [Rx Last Taken Unknown] amlodipine 5 mg tablet 5 mg PO BID #180 tabs 07/05/23 [Rx Last Taken Unknown] furosemide 40 mg tablet 40 mg PO DAILY edema, shortness of breath #90 tabs 07/05/23 [Rx Last Taken Unknown] ondansetron 4 mg disintegrating tablet 4 mg PO Q6H PRN PRN Nausea #10 tabs 08/17/23 [Rx Last Taken Unknown] polyethylene glycol 3350 17 gram/dose oral powder (Miralax) 17 g PO DAILY 12/10/23 [History Last Taken Unknown] Allergy/AdvReac Type Severity Reaction Status Date / Time Iodinated Contrast Media Allergy Rash Verified 12/17/23 05:36 [Iodinated Contrast- Oral and IV Dye] iodine Allergy Rash Verified 12/17/23 05:36 Penicillins [PCN] Allergy Rash Verified 12/17/23 05:36 ciprofloxacin [From Cipro] AdvReac Intermediate dizziness Verified 12/17/23 05:36 clindamycin AdvReac Intermediate nausea Verified 12/17/23 05:36 levofloxacin [From Levaquin] AdvReac Intermediate abdominal Verified 12/17/23 05:36 pain, nausea simvastatin AdvReac Intermediate Myalgias Verified 12/17/23 05:36 Family History Father , Age 82 CAD (coronary artery disease) Myocardial infarction CVA (cerebral vascular accident) Hypertension Mother , Age 94 Hypertension CVA (cerebral vascular accident) Sister Cancer Brother , Age 13 months from congenital heart defect Congenital heart defect Surgical History Cardiac pacemaker in situ History of appendectomy History of cardioversion (07/12/05) History of hysterectomy (1990) History of knee replacement (05/2018) History of left heart catheterization (09/09/03) History of radiofrequency ablation procedure for cardiac arrhythmia History of tilt table evaluation (06/02/04) Hx of atrioventricular node ablation Social History household members: spouse Smoking Status: Never smoker alcohol intake: never substance use type: does not use caffeine: No ROS ROS ED Constitutional Constitutional ED: Denies chills or fever(s) Eyes Eyes: Denies blurry vision or change in vision ENT ENT ED: Denies rhinorrhea or sore throat Cardiovascular Cardiovascular: Denies chest pain or palpitations Respiratory/Chest Respiratory/Chest: Reports dyspnea; Denies cough Gastrointestinal Gastrointestinal: Reports nausea; Denies vomiting Genitourinary Genitourinary ED: Denies dysuria or hematuria Musculoskeletal Musculoskeletal: Denies back pain or neck pain Integumentary Denies abscess or rash Neurologic Neurologic: Denies headache(s) or weakness Allergic/Immunologic Allergic/Immunologic ED: Denies mouth swelling or urticaria EXAM Physical Exam Const Vital Signs: 12/17/23 05:35 12/17/23 05:35 Temperature 97.4 F L Temperature Source Temporal Pulse Rate 66 Respiratory Rate 18 Respiratory Effort Normal Non-Labored Respiratory Pattern Normal Blood Pressure 121/96 H Blood Pressure Mean 104 Pulse Ox 94 Oxygen Delivery Method Room Air Positive well nourished and well developed General Appearance ED: well developed and NAD HEENT Reports moist mucous membranes Neck supple and no JVD Resp normal respiratory effort and clear to auscultation bilaterally Cardio regular rate and regular rhythm GI non-tender and non-distended Palpation: soft Extremity Extremity Narrative: There is 2+ edema of the lower legs and ankles bilaterally. There is no calf tenderness noted. General Extremety ED: Yes edema General Extremity: edema Neuro oriented x3, CN's II-XII intact bilaterally and no sensory deficits noted Sensorium / Orientation: alert Motor Exam: strength 5/5 throughout Psych mental status grossly normal MDM MDM MDM Narrative Medical decision making narrative: Differential diagnosis includes congestive heart failure, peripheral edema, cardiac dysrhythmia, cardiac ischemia, pleural effusion, and electrolyte abnormality. CBC will be obtained to assess for leukocytosis and anemia. Basic metabolic profile will be obtained to assess for electrolyte abnormality and renal function. High-sensitivity troponin will be obtained to assess for cardiac ischemia. Chest x-ray will be obtained to assess for congestive heart failure, pleural effusion, and pneumonia. EKG will be obtained to assess for cardiac dysrhythmia and cardiac ischemia. Lab Data Attestation: I reviewed the patient's lab results. Lab results narrative: CBC was reviewed. There is a mild anemia with a hemoglobin of 11.3 and hematocrit 34.6. Basic metabolic profile was reviewed. Sodium was low at 126. Chloride was low at 95. The remainder is within normal limits. BNP was reviewed and was 255.7. This is consistent with prior results. Urinalysis was reviewed. There is no evidence of urinary tract infection. Labs: Laboratory Results - last 24 hr 12/17/23 12/17/23 06:09 06:34 WBC 9.8 RBC 3.93 L Hgb 11.3 L Hct 34.6 L MCV 88.0 MCH 28.8 MCHC 32.7 RDW Std Deviation 52.4 H RDW Coeff of Donn 16.5 H Plt Count 293 MPV 8.5 Immature Gran % (Auto) 0.200 Neut % (Auto) 55.1 Lymph % (Auto) 34.5 [place] % (Auto) 7.6 Eos % (Auto) 2.1 Baso % (Auto) 0.5 Absolute Neuts (auto) 5.4 Absolute Lymphs (auto) 3.39 Nucleated RBC % 0 Sodium 126 L Potassium 4.8 Chloride 95 L Carbon Dioxide 24.0 Anion Gap 7 BUN 25 H Creatinine 0.83 Estim Creat Clear Calc 44.06 Est GFR (MDRD) Af Amer 84 Est GFR (MDRD) Non-Af 70 BUN/Creatinine Ratio 30.1 H Glucose 117 H Calcium 9.5 Troponin I High Sens 12 B-Natriuretic Peptide 255.7 H Urine Color Yellow Urine Clarity Clear Urine pH 6.5 Ur Specific [place] 1.010 Urine Protein 30 H Urine Glucose (UA) Normal Urine Ketones Negative Urine Occult Blood 10 H Urine Nitrite Negative Urine Bilirubin Negative Urine Urobilinogen Normal Ur Leukocyte Esterase Negative Radiography Chest X-Ray - ED: 1 View, Read by ED Physician, Read by Radiologist and No Acute Disease Diagnostic Testing: Clinical Impression(s) from Imaging Studies Chest X-Ray 12/17/23 06:26 IMPRESSION: No acute findings in the chest. Electronically Signed: Davey Dominguez MD at 6:47 EST , Portable 1 view chest x-ray was obtained. On my independent interpretation, lung salas are clear. There is cardiomegaly noted. Bony thorax is normal. There is no acute process noted. Radiologist also interpreted the x-ray and agrees. EKG Initial EKG: Attestation: I personally reviewed and interpreted this EKG as follows: Interpretation: Paced (60) and LBBB Comments: EKG was obtained. On my independent interpretation, it shows a paced rhythm with a rate of 60. QRS interval was prolonged at 156 ms. QTc interval was 432 ms. There is left axis deviation at -65. There is a left bundle branch block pattern noted. Prior EKG tracings: available for review Prior: Unchanged (12/07/2023) Management Discussion w/another healthcare provider: Hospitalist Additional Tests and Interventions Additional Tests or Interventions: Patient was concerned about her INR. Therefore PT with INR will be added on. Treatment and Re-Evaluation :: Patient was advised of her findings. Patient is concerned about her hyponatremia and if her diuretics are going to be worsening her hyponatremia. When patient sodium was 126 in the past they stopped her diuretics and that her legs began to become more edematous. Patient is agreeable to stay in the hospital to have further testing done to see if her diuretics can be adjusted. Case will be discussed with the hospitalist. He will admit the patient to his service. Patient and understood and were agreeable with the plan. All questions were answered. Discharge Plan Triage Chief Complaint: Edema ED Provider: Rios Del Valle Dx/Rx/DC Orders Clinical Impression: Shortness of breath, Hyponatremia Prescriptions: No Action Zyrtec 10 mg capsule 10 mg PO DAILY PRN (Reason: allergy symptoms) warfarin 1 mg tablet 1 mg PO .COMPLEX Rx Instructions: coumadin 4mg on sunday & , 6mg on sunday, sunday, sunday,sunday, sunday docusate sodium [Stool Softener] 100 mg capsule 100 mg PO BID calcitriol 0.25 mcg capsule 0.25 mcg PO DAILY albuterol sulfate 90 mcg/actuation HFA aerosol inhaler 2 puff inhalation Q6H PRN (Reason: shortness of breath or wheezing) Patient Comments: inhale 2 puffs by mouth and INTO THE LUNGS every 6 hours if needed for wheezing [employer] Probiotics 5 billion cell tablet,chewable 1 tab PO DAILY PRN (Reason: probiotic) carvedilol 6.25 mg tablet 6.25 mg PO BID Qty: 180 3RF Rx Instructions: must administer with a meal/food amlodipine 5 mg tablet 5 mg PO BID Qty: 180 3RF furosemide 40 mg tablet 40 mg PO DAILY Qty: 90 3RF polyethylene glycol 3350 [Miralax] 17 gram/dose powder 17 g PO DAILY hydrocodone-acetaminophen 5-325 mg tablet 1 tab PO 4X/DAY PRN PRN (Reason: Pain) [id number]-FA-vit K-lut 8 mg iron-400 mcg-300 mcg tablet 1 tab PO DAILY ondansetron [ondansetron] 4 mg tablet,disintegrating 4 mg PO Q6H PRN PRN (Reason: Nausea) Qty: 10 0RF spironolactone 50 mg tablet 50 mg PO DAILY Qty: 90 3RF [id number]-algal oil [Metanx (algal oil)] 3 mg-35 mg-2 mg -90.314 mg capsule 1 cap PO DAILY Primary Care Provider: Rashad Peñaloza Referrals: Rashad Peñaloza MD [Primary Care Provider] - Disposition Disposition: Acute Care [facility]
--- NOTE | 2023-12-17 06:26 | EKG12_ITS ---
Test Reason : Blood Pressure : / mmHG Vent. Rate : 060 BPM Atrial Rate : 300 BPM P-R Int : 000 ms QRS Dur : 156 ms QT Int : 432 ms P-R-T Axes : 000 -65 102 degrees QTc Int : 432 ms Ventricular-paced rhythm Abnormal ECG Confirmed by JEREMIAS MOHR, TASHI ([id number]), editor trade journal CLAIRE QUEEN ([id number]) on 12/18/2023 9:41:47 AM Referred By: Confirmed By:TASHI MCDOWELL MD
--- NOTE | 2023-12-17 06:26 | RAD_ITS ---
EXAM: XR CHEST, 1 VIEW CLINICAL INDICATION: Dyspnea TECHNIQUE: Frontal view of the chest. COMPARISON: Two-view chest 12/07/2023 FINDINGS: LUNGS AND PLEURAL SPACES: Unremarkable. No consolidation or edema. No pneumothorax. No effusion. HEART: Moderate enlargement of the cardiac silhouette. MEDIASTINUM: Central airways and mediastinal contour are unremarkable. BONES/JOINTS: Degenerative changes of the spine and shoulders. No acute fracture. SOFT TISSUES: Unremarkable. TUBES, LINES AND DEVICES: Left chest pacer. RAD/Chest 1 View (Portable) IMPRESSION: No acute findings in the chest. Electronically Signed: Davey Dominguez MD at 6:47 EST ,
[2023-12-17 06:38] LABS: Absolute Lymphocyte Count 3.39 X10^3/uL (0.83-4.51); Absolute Neutrophil Count 5.4 X10^3/uL (2.0-7.7); Basophil# 0.05 X10^3/uL; Basophil% 0.5 % (0-1); Eosinophil# 0.21 X10^3/uL; Eosinophils% 2.1 % (0-5); Hematocrit 34.6 % (37-47); Hemoglobin 11.3 g/dL (12.0-15.0); Lymphocyte # 3.39 X10^3/ul (0.83-4.51); Lymphocyte % 34.5 % (19-41); Mean Corp Hgb Conc 32.7 g/dL (32-36); Mean Corpuscular Hgb 28.8 pg (27.0-32.0); Mean Platelet Vol. 8.5 fl (6.2-12.0); Monocyte# 0.75 X10^3/uL; Monocyte% 7.6 % (0-10); NRBC Flagged by Analyzer 0 % (0-5); Neutrophil % 55.1 % (47-70); Platelet Count 293 K/mm3 (150-450); RBC Distribution Width CV 16.5 % (11.6-14.6); RBC Distribution Width SD 52.4 fl (35.1-43.9); Red Blood Count 3.93 M/mm3 (4.2-5.4); White Blood Count 9.8 K/mm3 (4.4-11.0)
[2023-12-17 06:54] LABS: Color, Urine Yellow (Yellow); Glucose, Dipstick Normal (Normal); Ketone-Dipstick Negative (Negative); Leukocyte Esterase-Dipstick Negative /ul (Negative); Nitrite-Dipstick Negative (Negative); Occult Blood-Urine 10 /ul (Negative); Protein-Dipstick 30 mg/dl (Negative); Urine Bilirubin Dipstick Negative (Negative); Urine Clarity Clear (Clear); Urine Urobilinogen Normal (Normal); Urine pH 6.5 (5.0 - 8.0)
[2023-12-17 06:54] LABS: Anion Gap 7 (5-15); BUN 25 mg/dL (7-18); BUN/Creat Ratio 30.1 RATIO (10-20); Calcium,Total 9.5 mg/dL (8.5-10.1); Chloride 95 mmol/L (98-107); Creatinine, Serum 0.83 mg/dL (0.55-1.02); EST Glomerular Filtration Rate 70 mL/min (>60); Est Glom Filt Rate - Afr Amer 84 mL/min (>60); Estimated Creatinine Clearance 44.06 ml/min; Glucose 117 mg/dL (74-106); Potassium 4.8 mmol/L (3.5-5.1); Sodium Level 126 mmol/L (136-145); Troponin-I HS 12 pg/mL (3.0-54.0)
--- OUTSIDE RECORDS SUMMARY | 2023-12-17 06:55 | XMS RPT_ITS | CCD ---
Author Name Unknown Address [address] [place] [address] Organization [facility] Care Team Providers Care Costumed Character Entertainer Name Role Phone LILIANA, RICHARD Unavailable Unavailable LILIANA, RICHARD Unavailable Unavailable ZOHRA PEÑALOZA Unavailable Unavailable ERNIE HARRIS Unavailable Unavailable ERNIE HARRIS Unavailable Unavailable ZOHRA PEÑALOZA Unavailable Unavailable Nehemias Bhandari Unavailable Unavailable Zohra Peñaloza Unavailable Unavailable Nehemias Bhandari Unavailable Unavailable Zohra Peñaloza Unavailable Unavailable ZOHRA PEÑALOZA MD Primary Care Physician Denita Menjivar Unavailable Unavailable Samples [employer] Bookkeeper, Sonam Unavailable Unavailable EmilyVerónicay L Unavailable Unavailable Na PT, Vicky Unavailable Unavailable Karen Orozco Unavailable Unavailable Yari Conley Unavailable Unavailable Kay Vogel Primary Care Provider KAY VOGEL Primary Care NICOLE Sargent Attending Unavailable DR BENNIE RODRIGUEZ DO Attending Unavailable ZOHRA PEÑALOZA MD Primary Care Unavailable GUERDA VILLARREAL Attending Unavailable ZOHRA PEÑALOZA MD Primary Care Unavailable GUERDA VILLARREAL Attending Unavailable ZOHRA PEÑALOZA MD Primary Care Unavailable ZOHAR PEÑALOZA MD Primary Care Unavailable GUERDA VILLARREAL Attending Unavailable ZOHRA PEÑALOZA MD Primary Care Unavailable ASHLEY CROSS MD Attending Unavailable DR BENNIE RODRIGUEZ DO Attending Unavailable ZOHRA PEÑALOZA MD Primary Care Unavailable ZOHRA PEÑALOZA MD Primary Care Unavailable ASHLEY CROSS MD Attending Unavailable GUERDA VILLARREAL Attending Unavailable ZOHRA PEÑALOZA MD Primary Care Unavailable ZOHRA PEÑALOZA MD Primary Care Unavailable ASHLEY CROSS MD Attending Unavailable ZOHRA PEÑALOZA MD Primary Care Unavailable HALEY BECERRA, DR BRITTNY Infante Attending ZOHRA Wood MD Primary Care Unavailable HALEY BECERRA, DR BRITTNY Infante Attending UnaZOHRA Berumen MD Primary Care Unavailable ASHLEY CROSS MD Attending Unavailable ZOHRA PEÑALOZA MD Primary Care Unavailable ASHLEY CROSS MD Attending Unavailable ZOHRA PEÑALOZA MD Primary Care Unavailable ASHLEY CROSS MD Attending Unavailable ZOHRA PEÑALOZA MD Primary Care Unavailable CHERELLE, GUERDA Attending Unavailable ZOHRA PEÑALOZA MD Primary Care Unavailable MICHAEL MENJIVAR, DR AVERY Attending Unavailable ZOHRA PEÑALOZA MD Primary Care Unavailable CHERELLE, GUERDA Attending Unavailable CHERELLE, GUERDA Attending Unavailable ZOHRA PEÑALOZA MD Primary Care Unavailable CHERELLE, GUERDA Attending Unavailable ZOHRA PEÑALOZA MD Primary Care Unavailable CHERELLE, GUERDA Attending Unavailable ZOHRA PEÑALOZA MD Primary Care Unavailable CHERELLE, GUERDA Attending Unavailable ZOHRA PEÑALOZA MD Primary Care Unavailable ALVARADOLA, GUERDA Attending Unavailable ZOHRA PEÑALOZA MD Primary Care Unavailable ALVARADOLA, GUERDA Attending Unavailable ZOHRA PEÑALOZA MD Primary Care Unavailable CHERELLE, GUERDA Attending Unavailable ZOHRA PEÑALOZA MD Primary Care Unavailable MICHAEL MENJIVAR, DR AVERY Attending Unavailable ZOHRA PEÑALOZA MD Primary Care Unavailable ALVARADOLA, GUERDA Attending Unavailable ZOHRA PEÑALOZA MD Primary Care Unavailable CHERELLE, GUERDA Attending Unavailable ZOHRA PEÑALOZA MD Primary Care Unavailable ZOHRA PEÑALOZA MD Attending Unavailable ZOHRA PEÑALOZA MD Primary Care Unavailable CHERELLE, GUERDA Attending Unavailable ZOHRA PEÑALOZA MD Primary Care Unavailable ZOHRA PEÑALOZA MD Primary Care Unavailable GUERDA VILLARREAL Attending Unavailable ZOHRA PEÑALOZA MD Primary Care Unavailable GUERDA VILLARREAL Attending Unavailable ZOHRA PEÑALOZA MD Primary Care Unavailable HALEY BECERRA, DR BRITTNY Infante Attending ZOHRA Wood MD Primary Care Unavailable ASHLEY CROSS MD [...] Unavailable MICHAEL MENJIVAR, DR AVERY Attending Unavailable GUERDA VILLARREAL Attending Unavailable ZOHRA PEÑALOZA MD Primary Care Unavailable GUERDA VILLARREAL Attending Unavailable ZOHRA PEÑALOZA MD Primary Care Unavailable ZOHRA PEÑALOZA MD Primary Care Unavailable ASHLEY CROSS MD Attending Unavailable ZOHRA PEÑALOZA MD Primary Care Unavailable ZOHRA PEÑALOZA MD Attending Unavailable GUERDA VILLARREAL Attending Unavailable ZOHRA PEÑALOZA MD Primary Care Unavailable MANUEL HOUSE MD Attending Unavailable ZOHRA PEÑALOZA MD Primary Care Unavailable JORGE LUIS KEATING, ANTHONY Attending Unavailable ZOHRA PEÑALOZA MD Primary Care Unavailable ZOHRA PEÑALOZA MD Attending Unavailable ZOHRA PEÑALOZA MD Primary Care Unavailable ZOHRA PEÑALOZA MD Primary Care Unavailable FOITH SPACER TYPE BAR AND SEGMENT-PENCIL SORTER, SHERRELL Admitting Unavailab jackie FONSECA DO, DR HERCULES Attending Unavailable ZOHRA PEÑALOZA MD Primary Care Unavailable TANESHA MENJIVAR, LETHA Attending Unavailable FOITH SPACER TYPE BAR AND SEGMENT-PENCIL SORTER, SHERRELL Referring Unavailab le FOITH SPACER TYPE BAR AND SEGMENT-PENCIL SORTER, SHERRELL Admitting Unavailab LETHA Balderrama DO Consulting Unavailable ZOHRA PEÑALOZA MD Primary Care Unavailable ZOHRA PEÑALOZA MD Attending Unavailable GABY SR MD Attending Unavailable ZOHRA PEÑALOZA MD Primary Care Unavailable ZOHRA PEÑALOZA MD Attending Unavailable ZOHRA PEÑALOZA MD Primary Care Unavailable ZOHRA PEÑALOZA MD Primary Care Unavailable ZOHRA PEÑALOZA MD Attending Unavailable ZOHRA PEÑALOZA MD Primary Care Unavailable MANUEL HOUSE MD Attending Unavailable ZOHRA PEÑALOZA MD Primary Care Unavailable GLORIA SZYMANSKI MD, FACP Consulting Unavail able ZOHRA PEÑALOZA MD Attending Unavailable ZOHRA PEÑALOZA MD Primary Care Unavailable BRANDON MENJIVAR, DR KRYS Walton Attending UnavailZOHRA New MD Primary Care Unavailable GUERDA VILLARREAL Attending Unavailable ZOHRA PEÑALOZA MD Primary Care Unavailable ASHLEY CROSS MD Attending Unavailable GUERDA VILLARREAL Attending Unavailable ZOHRA PEÑALOZA MD Primary Care Unavailable GUERDA VILLARREAL Attending Unavailable ZOHRA PEÑALOZA MD Primary Care Unavailable GUERDA VILLARREAL Attending Unavailable ZOHRA PEÑALOZA MD Primary Care Unavailable GUERDA VILLARREAL Attending Unavailable ZOHRA PEÑALOZA MD Primary Care Unavailable ZOHRA PEÑALOZA MD Primary Care Unavailable DR BENNIE RODRIGUEZ DO Attending Unavailable ZOHRA PEÑALOZA MD Primary Care Unavailable GUERDA VILLARREAL Attending Unavailable ZOHRA PEÑALOZA MD Primary Care Unavailable GUERDA VILLARREAL Attending Unavailable ZOHRA PEÑALOZA MD Primary Care Unavailable ASHLEY CROSS MD Attending Unavailable ZOHRA PEÑALOZA MD Primary Care Unavailable ASHLEY CROSS MD Attending Unavailable ZOHRA PEÑALOZA MD Primary Care Unavailable GUERDA VILLARREAL Attending Unavailable GUERDA VILLARREAL Attending Unavailable ZOHRA PEÑALOZA MD Primary Care Unavailable ZOHRA PEÑALOZA MD Primary Care Unavailable GUERDA VILLARREAL Attending Unavailable Allergies Allergy Classification Reported Allergen(s) Allergy Type Date of Onset Reaction(s) Facility (20 sources) Ciprofloxacin; Translations: [ciprofloxacin] Drug Allergy 01-20-20 Dizziness (finding), GI Upset, Other: See Comments, Intolerance [facility] (20 sources) Clindamycin; Translations: [clindamycin] Drug Allergy 01-20-20 Nausea (finding), GI Upset [facility] (20 sources) Dicloxacillin; Translations: [dicloxacillin] Drug Allergy [facility] (20 sources) Iodine; Translations: [iodine topical] Drug Allergy 03-29-20 09 Eruption of skin (disorder), Rash, [facility] (20 sources) levoFLOXacin; Translations: [levofloxacin] Drug Allergy 01-20-20 20 Insomnia (disorder), Nausea (finding), Abdominal pain (finding), GI Upset, Intolerance [facility] (20 sources) Penicillin; Translations: [penicillins] Drug Allergy 03-29-20 09 [facility] (20 sources) Penicillin V; Translations: [penicillin V potassium] Drug Allergy Eruption of skin (disorder) [facility] (20 sources) Simvastatin; Translations: [simvastatin] Drug Allergy 01-20-20 20 Muscle pain (finding), Myalgia [facility] (2 sources) Erythromycin Drug Allergy 08-21-19 98 [facility] Work Phone: (2 sources) Iodine Drug Allergy 08-21-19 98 [facility] Work Phone: (2 sources) Penicillin Drug Allergy 08-21-19 98 [facility] Work Phone: (2 sources) Vancomycin Drug Allergy 08-21-19 98 [facility] Work Phone: (2 sources) Dicoxacillin [Other] Propensity to adverse reactions 08-21-19 98 [facility] Work Phone: (1 source) OTHER; Translations: [OTHER] Propensity to adverse reactions (disorder) 08-21-[address] [facility] (1 source) Penicillins Drug Allergy 05-08-20 18 Rash, Hives [facility] (1 source) Iodinated Contrast Media Drug Allergy 01-20-20 20 Rash [facility] (7 sources) Sulfamethoxazole / Trimethoprim; Translations: [sulfamethoxazole-t rimethoprim] Drug Allergy Nausea (finding) [facility] Medications Current Medications Medication Drug Class(es) Dates Sig (Normalized) Sig (Original) acetaminophen 325 mg / HYDROcodone bitartrate 5 mg oral tablet (20 sources) Opioid Agonist Start: 11-14-2023 End: 12-14-2023 take 1 tablet by mouth four times daily as needed for pain [place] 325- 5 mg oral tablet Dose = [...] 15:45-0500 Body temperature 97.52 [degF] SHERRELL SHAH SPACER TYPE BAR AND SEGMENT-PENCIL SORTER [facility] 11-26-2023 15:45-0500 Diastolic Blood Pressure Non-Invasive 85 mm[Hg] SHERRELL SHAH SPACER TYPE BAR AND SEGMENT-PENCIL SORTER [facility] 11-26-2023 15:45-0500 Heart rate 76 /min SHERRELL SHAH SPACER TYPE BAR AND SEGMENT-PENCIL SORTER [facility] 11-26-2023 15:45-0500 Reason For Taking VItal Signs SHERRELL SHAH SPACER TYPE BAR AND SEGMENT-PENCIL SORTER [facility] 11-26-2023 15:45-0500 Respiratory rate 18 /min SHERRELL SHAH SPACER TYPE BAR AND SEGMENT-PENCIL SORTER [facility] 11-26-2023 15:45-0500 Systolic Blood Pressure Non-Invasive 136 mm[Hg] SHERRELL SHAH SPACER TYPE BAR AND SEGMENT-PENCIL SORTER [facility] 11-26-2023 11:12-0500 Body temperature 97.34 [degF] SHERRELL SHAH SPACER TYPE BAR AND SEGMENT-PENCIL SORTER [facility] 11-26-2023 11:12-0500 Diastolic Blood Pressure Non-Invasive 85 mm[Hg] SHERRELL SHAH SPACER TYPE BAR AND SEGMENT-PENCIL SORTER [facility] 11-26-2023 11:12-0500 Heart rate 67 /min SHERRELL SHAH SPACER TYPE BAR AND SEGMENT-PENCIL SORTER [facility] 11-26-2023 11:12-0500 Reason For Taking VItal Signs SHERRELL SHAH SPACER TYPE BAR AND SEGMENT-PENCIL SORTER [facility] 11-26-2023 11:12-0500 Respiratory rate 18 /min SHERRELL SHAH SPACER TYPE BAR AND SEGMENT-PENCIL SORTER [facility] 11-26-2023 11:12-0500 Systolic Blood Pressure Non-Invasive 141 mm[Hg] SHERRELL SHAH SPACER TYPE BAR AND SEGMENT-PENCIL SORTER [facility] 11-26-2023 07:18-0500 Body temperature 98.24 [degF] SHERRELL SHAH SPACER TYPE BAR AND SEGMENT-PENCIL SORTER [facility] 11-26-2023 07:18-0500 Diastolic Blood Pressure Non-Invasive 75 mm[Hg] SHRERELL SHAH SPACER TYPE BAR AND SEGMENT-PENCIL SORTER [facility] 11-26-2023 07:18-0500 Heart rate 56 /min SHERRELL SHAH SPACER TYPE BAR AND SEGMENT-PENCIL SORTER [facility] 11-26-2023 07:18-0500 Reason For Taking VItal Signs SHERRELL SHAH SPACER TYPE BAR AND SEGMENT-PENCIL SORTER [facility] 11-26-2023 07:18-0500 Respiratory rate 16 /min SHERRELL SHAH SPACER TYPE BAR AND SEGMENT-PENCIL SORTER [facility] 11-26-2023 07:18-0500 Systolic Blood Pressure Non-Invasive 131 mm[Hg] SHERRELL SHAH SPACER TYPE BAR AND SEGMENT-PENCIL SORTER [facility] 11-26-2023 04:50-0500 Heart rate 65 /min SHERRELL SHAH SPACER TYPE BAR AND SEGMENT-PENCIL SORTER [facility] 11-26-2023 01:37-0500 Heart rate 66 /min SHERRELL SHAH SPACER TYPE BAR AND SEGMENT-PENCIL SORTER [facility] 11-25-2023 23:06-0500 Heart rate 64 /min SHERRELL ALYSSA SPACER TYPE BAR AND SEGMENT-PENCIL SORTER [facility] 11-24-2023 06:18-0500 Body height 157.5 cm SHERRELL ALYSSA SPACER TYPE BAR AND SEGMENT-PENCIL SORTER [facility] 11-24-2023 06:18-0500 Body weight 57.1 kg SHERRELL SHAH SPACER TYPE BAR AND SEGMENT-PENCIL SORTER [facility] 11-24-2023 06:18-0500 Body weight 23.02 kg/m2 SHERRELL ALYSSA SPACER TYPE BAR AND SEGMENT-PENCIL SORTER [facility] 08-23-2023 12:09-0400 Body temperature 98.06 [degF] SHERRELL ALYSSA SPACER TYPE BAR AND SEGMENT-PENCIL SORTER [facility] 08-23-2023 12:09-0400 Diastolic Blood Pressure Non-Invasive 78 1 SHERRELL ALYSSA SPACER TYPE BAR AND SEGMENT-PENCIL SORTER [facility] 08-23-2023 12:09-0400 Heart rate 65 /min SHERRELL ALYSSA SPACER TYPE BAR AND SEGMENT-PENCIL SORTER [facility] 08-23-2023 12:09-0400 Reason For Taking VItal Signs SHERRELL SHAH SPACER TYPE BAR AND SEGMENT-PENCIL SORTER [facility] 08-23-2023 12:09-0400 Respiratory rate 20 /min SHERRELL SHAH SPACER TYPE BAR AND SEGMENT-PENCIL SORTER [facility] 08-23-2023 12:09-0400 Systolic Blood Pressure Non-Invasive 143 1 SHERRELL ALYSSA SPACER TYPE BAR AND SEGMENT-PENCIL SORTER [facility] 08-23-2023 06:23-0400 Body temperature 98.06 [degF] SHERRELL SHAH SPACER TYPE BAR AND SEGMENT-PENCIL SORTER [facility] 08-23-2023 06:23-0400 Diastolic Blood Pressure Non-Invasive 64 1 SHERRELL ALYSSA SPACER TYPE BAR AND SEGMENT-PENCIL SORTER [facility] 08-23-2023 06:23-0400 Heart rate 56 /min SHERRELL SHAH SPACER TYPE BAR AND SEGMENT-PENCIL SORTER [facility] 08-23-2023 06:23-0400 Respiratory rate 20 /min SHERRELL SHAH SPACER TYPE BAR AND SEGMENT-PENCIL SORTER [facility] 08-23-2023 06:23-0400 Systolic Blood Pressure Non-Invasive 148 1 SHERRELLRENATO SHAH SPACER TYPE BAR AND SEGMENT-PENCIL SORTER [facility] 08-23-2023 02:49-0400 Body temperature 97.34 [degF] SHERRELL SHAH SPACER TYPE BAR AND SEGMENT-PENCIL SORTER [facility] 08-23-2023 02:49-0400 Diastolic Blood Pressure Non-Invasive 64 1 SHERRELL SHAH SPACER TYPE BAR AND SEGMENT-PENCIL SORTER [facility] 08-23-2023 02:49-0400 Heart rate 60 /min SHERRELL SHAH SPACER TYPE BAR AND SEGMENT-PENCIL SORTER [facility] 08-23-2023 02:49-0400 Reason For Taking VItal Signs SHERRELL SHAH SPACER TYPE BAR AND SEGMENT-PENCIL SORTER [facility] 08-23-2023 02:49-0400 Respiratory rate 18 /min SHERRELL SHAH SPACER TYPE BAR AND SEGMENT-PENCIL SORTER [facility] 08-23-2023 02:49-0400 Systolic Blood Pressure Non-Invasive 141 1 SHERRELL SHAH SPACER TYPE BAR AND SEGMENT-PENCIL SORTER [facility] 08-22-2023 23:41-0400 Heart rate 56 /min SHERRELL SHAH SPACER TYPE BAR AND SEGMENT-PENCIL SORTER [facility] 08-22-2023 23:41-0400 Reason For Taking VItal Signs SHERRELL SHAH SPACER TYPE BAR AND SEGMENT-PENCIL SORTER [facility] 08-22-2023 19:53-0400 Heart rate 61 /min SHERRELLRENATO SYITH SPACER TYPE BAR AND SEGMENT-PENCIL SORTER [facility] 08-22-2023 16:07-0400 Heart rate 74 /min SHERRELL SYITH SPACER TYPE BAR AND SEGMENT-PENCIL SORTER [facility] 08-22-2023 12:03-0400 Heart rate 67 /min SHERRELLRENATO SYITH SPACER TYPE BAR AND SEGMENT-PENCIL SORTER [facility] 08-21-2023 16:15-0400 Heart rate 59 /min SHERRELL SYITH SPACER TYPE BAR AND SEGMENT-PENCIL SORTER [facility] 08-21-2023 11:30-0400 Heart rate 59 /min SHERRELL SHAH SPACER TYPE BAR AND SEGMENT-PENCIL SORTER [facility] 08-21-2023 04:02-0400 Body height 157 cm SHERRELL SHAH SPACER TYPE BAR AND SEGMENT-PENCIL SORTER [facility] 08-21-2023 04:02-0400 Body weight 59.5 kg SHERRELL SYITH SPACER TYPE BAR AND SEGMENT-PENCIL SORTER [facility] 08-21-2023 04:02-0400 Body weight 24.14 kg/m2 SHERRELLRENATO SYITH SPACER TYPE BAR AND SEGMENT-PENCIL SORTER [facility] 08-21-2023 03:34-0400 Blood Pressure Cuff Size SHERRELL SHAH SPACER TYPE BAR AND SEGMENT-PENCIL SORTER [facility] 08-21-2023 03:34-0400 Blood Pressure Location SHERRELL SHAH SPACER TYPE BAR AND SEGMENT-PENCIL SORTER [facility] 08-21-2023 03:34-0400 Blood Pressure Method SHERRELL SHAH SPACER TYPE BAR AND SEGMENT-PENCIL SORTER [facility] 08-21-2023 00:01-0400 Body height 157 cm SHERRELL SHAH SPACER TYPE BAR AND SEGMENT-PENCIL SORTER [facility] 08-21-2023 00:01-0400 Body weight 59 kg SHERRELL SHAH SPACER TYPE BAR AND SEGMENT-PENCIL SORTER [facility] 11-18-2022 18:27-0500 Diastolic Blood Pressure Non-Invasive 77 1 ROSENDO REICHFIELD DO [facility] 11-18-2022 18:27-0500 Heart rate 59 /min ROSENDO REICHFIELD DO [facility] 11-18-2022 18:27-0500 Respiratory rate 19 /min ROSENDO REICHFIELD DO [facility] 11-18-2022 18:27-0500 Systolic Blood Pressure Non-Invasive 157 1 ROSENDO REICHFIELD DO [facility] 11-18-2022 16:57-0500 Blood Pressure Location ROSENDO REICHFIELD DO [facility] 11-18-2022 16:57-0500 Blood Pressure Method ROSENDO REICHFIELD D O [facility] 11-18-2022 16:57-0500 Body temperature 97.7 [degF] ROSENDO REICHFIELD DO [facility] 11-18-2022 16:57-0500 Diastolic Blood Pressure Non-Invasive 79 1 ROSENDO REICHFIELD DO [facility] 11-18-2022 16:57-0500 Heart rate 64 /min ROSENDO OLIVARES DO [facility] 11-18-2022 16:57-0500 Respiratory rate 20 /min ROSENDO OLIVARES DO [facility] 11-18-2022 16:57-0500 Systolic Blood Pressure Non-Invasive 154 1 ROSENDO OLIVARES DO [facility] 08-08-2022 16:25-0400 Body temperature 97.5 [degF] Vicky Chisholm DO Work Phone: [facility] 08-08-2022 16:25-0400 Body weight 58.97 kg Vicky Chisholm DO Work Phone: [facility] 08-08-2022 16:25-0400 Diastolic blood pressure 82 mm[Hg] Vicky Chisholm DO Work Phone: [facility] 08-08-2022 16:25-0400 Heart rate 86 /min Vicky Chisholm DO Work Phone: [facility] 08-08-2022 16:25-0400 Respiratory rate 18 /min Vicky Chisholm DO Work Phone: [facility] 08-08-2022 16:25-0400 SaO2% (BldA) [Mass fraction] 97 % Vicky Chisholm DO Work Phone: [facility] 08-08-2022 16:25-0400 Systolic blood pressure 152 mm[Hg] Vicky Chisholm DO Work Phone: [facility] 08-03-2022 17:01-0400 Body weight 59.42 kg Nicole Link MD Work Phone: [facility] 08-03-2022 17:01-0400 Diastolic blood pressure 90 mm[Hg] Nicole Link MD Work Phone: [facility] 08-03-2022 17:01-0400 Heart rate 60 /min Nicole Link MD Work Phone: [facility] 08-03-2022 17:01-0400 Respiratory rate 16 /min Nicole Link MD Work Phone: [facility] 08-03-2022 17:01-0400 SaO2% (BldA) [Mass fraction] 96 % Nicole Link MD Work Phone: [facility] 08-03-2022 17:01-0400 Systolic blood pressure 130 mm[Hg] Nicole Link MD Work Phone: [facility] 04-03-2022 11:50-0400 Body temperature 98.42 [degF] RAYNE SALAS MD [facility] 04-03-2022 11:50-0400 Diastolic blood pressure 77 mm[Hg] RAYNE SALAS MD [facility] 04-03-2022 11:50-0400 Heart rate 61 /min RAYNE SALAS MD [facility] 04-03-2022 11:50-0400 Respiratory rate 18 /min RAYNE SALAS MD [facility] 04-03-2022 11:50-0400 Systolic blood pressure 160 mm[Hg] RAYNE SALAS MD [facility] 10-31-2021 18:38-0500 Diastolic blood pressure 52 mm[Hg] KURT BANEGAS MD [facility] 10-31-2021 18:38-0500 Heart rate 85 /min KURT BANEGAS MD [facility] 10-31-2021 18:38-0500 Respiratory rate 16 /min KURT BANEGAS MD [facility] 10-31-2021 18:38-0500 Systolic blood pressure 155 mm[Hg] KURT BANEGAS MD [facility] 10-31-2021 16:23-0500 Body temperature 98.78 [degF] KURT BANEGAS MD [facility] 10-31-2021 16:23-0500 Body weight 63.7 kg KURT BANEGAS MD [facility] 10-31-2021 16:23-0500 Diastolic blood pressure 98 mm[Hg] KURT BANEGAS MD [facility] 10-31-2021 16:23-0500 Heart rate 84 /min KURT BANEGAS MD [facility] 10-31-2021 16:23-0500 Respiratory rate 16 /min KURT BANEGAS MD [facility] 10-31-2021 16:23-0500 Systolic blood pressure 163 mm[Hg] KURT BANEGAS MD [facility] 10-18-2021 06:14-0500 Body temperature 98.78 [degF] DR RYAN MOYA MD [facility] 10-18-2021 06:14-0500 Diastolic blood pressure 86 mm[Hg] DR RYAN MOYA MD [facility] 10-18-2021 06:14-0500 Heart rate 77 /min DR RYAN MOYA MD [facility] 10-18-2021 06:14-0500 Respiratory rate 16 /min DR RYAN MOYA MD [facility] 10-18-2021 06:14-0500 Systolic blood pressure 177 mm[Hg] DR RYAN MOYA MD [facility] 09-12-2021 19:49-0500 Body height 157.5 cm PRABHU LINDSAY MD [facility] 09-12-2021 19:49-0500 Body temperature 98.42 [degF] PRABHU LINDSAY MD [facility] 09-12-2021 19:49-0500 Body weight 60.5 kg PRABHU LINDSAY MD [facility] 09-12-2021 19:49-0500 Diastolic blood pressure 90 mm[Hg] PRABHU LINDSAY MD [facility] 09-12-2021 19:49-0500 Heart rate 62 /min PRABHU LINDSAY MD [facility] 09-12-2021 19:49-0500 Mean blood pressure 110 mm[Hg] PRABHU LINDSAY MD [facility] 09-12-2021 19:49-0500 Respiratory rate 18 /min PRABHU LINDSAY MD [facility] 09-12-2021 19:49-0500 Systolic blood pressure 151 mm[Hg] PRABHU LINDSAY MD [facility] Encounters Encounter Date Encounter Type Care Provider Facility Start: 12-12-2023 ambulatory ZOHRA PEÑALOZA MD Faci lity:B Start: 12-06-2023 End: 12-07-2023 ambulatory ZOHRA PEÑALOZA MD Facility:B Start: 12-05-2023 End: 12-06-2023 ambulatory ZOHRA PEÑALOZA MD Facility:A Start: 11-24-2023 End: 11-26-2023 Evaluation and management of inpatient ZOHRA PEÑALOZA MD Facility:B Start: 11-24-2023 End: 11-26-2023 Evaluation and management of inpatient SHERRELL SHAH SPACER TYPE BAR AND SEGMENT-PENCIL SORTER [facility] Start: 11-21-2023 End: 11-26-2023 ambulatory ZOHRA PEÑALOZA MD Facility:B Start: 11-21-2023 End: 11-25-2023 Outreach Lab ZOHRA PEÑALOZA MD [facility] Start: 11-21-2023 End: 11-22-2023 ambulatory ZOHRA PEÑALOZA MD Facility:A Start: 11-12-2023 End: 11-17-2023 ambulatory ZOHRA PEÑALOZA MD Facility:B Start: 11-12-2023 End: 11-16-[address] KRYS TAYLOR DO [facility] Start: 11-07-2023 End: 11-08-2023 ambulatory ZOHRA PEÑALOZA MD Facility:A Start: 11-07-2023 End: 11-07-2023 Wound Care Center ASHLEY CROSS MD [facility] Start: 10-31-2023 End: 11-01-2023 ambulatory ZOHRA PEÑALOZA MD Facility:A Start: 10-24-2023 End: 10-25-2023 ambulatory ZOHRA PEÑALOZA MD Facility:A Start: 10-19-2023 End: 10-20-2023 ambulatory ZOHRA PEÑALOZA MD Facility:A Start: 10-19-2023 End: 10-19-2023 Wound Care Center ASHLEY CROSS MD [facility] Start: 10-16-2023 End: 10-17-2023 ambulatory ZOHRA PEÑALOZA [...] 10-02-2023 Wound Care Center ASHLEY CROSS MD [facility] Start: 09-28-2023 End: 10-03-2023 ambulatory ZOHRA PEÑALOZA MD Facility:A Start: 09-28-2023 End: 09-29-2023 ambulatory ZOHRA PEÑALOZA MD Facility:A Start: 09-28-2023 End: 09-28-2023 Wound Care Center ASHLEY CROSS MD [facility] Start: 09-25-2023 End: 09-26-2023 ambulatory ZOHRA PEÑALOZA MD Facility:A Start: 09-19-2023 End: 09-20-2023 ambulatory ZOHRA PEÑALOZA MD Facility:A Start: 09-18-2023 End: 09-19-2023 ambulatory ZOHRA PEÑALOZA MD Facility:B Start: 09-12-2023 End: 09-13-2023 ambulatory ZOHRA PEÑALOZA MD Facility:A Start: 08-23-2023 ambulatory ZOHRA PEÑALOZA MD Faci lity:A Start: 08-21-2023 End: 08-23-2023 ambulatory ZOHRA PEÑALOZA MD Facility:B Start: 08-20-2023 End: 08-23-2023 Observation SHERRELL SHAH [facility] Start: 07-31-2023 End: 08-01-2023 ambulatory ZHORA PEÑALOZA MD Facility:A Start: 07-31-2023 End: 07-31-2023 Wound Care Center GUERDA VELÁSQUEZCOLA DPM [facility] Start: 07-19-2023 End: 07-20-2023 ambulatory ZOHRA PEÑALOZA MD Facility:A Start: 07-19-2023 End: 07-19-2023 Wound Care Center GUERDA VELÁSQUEZCOLA DPM [facility] Start: 07-13-2023 End: 07-14-2023 ambulatory ZOHRA PEÑALOZA MD Facility:A Start: 07-13-2023 End: 07-13-2023 Wound Care Center GUERDA VELÁSQUEZCOLA DPM [facility] Start: 07-12-2023 End: 07-13-2023 ambulatory ZOHRA PEÑALOZA MD Facility:A Start: 07-12-2023 End: 07-12-2023 Wound Care Center GUERDA VELÁSQUEZCOLA DPM [facility] Start: 07-06-2023 End: 07-07-2023 ambulatory ZOHRA PEÑALOZA MD Facility:A Start: 07-06-2023 End: 07-06-[address] BRITTNY DE LEON DPM [facility] Start: 07-03-2023 ambulatory ZOHRA PEÑALOZA MD Faci lity:A Start: 06-28-2023 End: 06-29-2023 ambulatory ZOHRA PEÑALOZA MD Facility:A Start: 06-28-2023 End: 06-28-2023 Wound Care Center GUERDA VELÁSQUEZCOLA DPM [facility] Start: 06-21-2023 End: 06-22-2023 ambulatory ZOHRA PEÑALOZA MD Facility:A Start: 06-21-2023 End: 06-21-2023 Wound Care Center GUERDA VELÁSQUEZCOLA DPM [facility] Start: 06-14-2023 End: 06-15-2023 ambulatory GUERDA VELÁSQUEZCOLA Facility:A Start: 06-14-2023 End: 06-14-2023 Wound Care Center GUERDA VELÁSQUEZCOLA DPM [facility] Start: 06-07-2023 End: 06-07-2023 Patient encounter procedure GUERDA VELÁSQUEZCOLA DPM [facility] Start: 06-07-2023 End: 06-08-2023 ambulatory GUERDA LASCOLA Facility:A Start: 05-31-2023 End: 06-01-2023 ambulatory GUERDA LASCOLA Facility:A Start: 05-24-2023 End: 05-25-2023 ambulatory GUERDA LASCOLA Facility:A Start: 05-24-2023 End: 05-24-2023 Wound Care Center GUERDA K LASCOLA DPM [facility] Start: 05-18-2023 End: 05-19-2023 ambulatory GUERDA VILLARREAL Facility:A Start: 05-15-2023 End: 05-16-2023 ambulatory GABY SR MD Facility:B Start: 05-15-2023 End: 05-15-2023 Patient encounter procedure GABY SR MD [facility] Start: 05-14-2023 ambulatory GUERDA VELÁSQUEZCOLA Facilit y:A Start: 05-10-2023 End: 05-11-2023 ambulatory GUERDA VELÁSQUEZROBERTO Facility:A Start: 05-07-2023 End: 06-15-2023 ambulatory ZOHRA PEÑALOZA MD Facility:A Start: 05-03-2023 End: 05-04-2023 ambulatory GUERDA VELÁSQUEZROBERTO Facility:A Start: 05-03-2023 End: 05-03-2023 Wound Care Center GUERDA VILLARREAL DPM [facility] Start: 04-26-2023 End: 04-27-[address] BENNIE RODRIGUEZ DO Facility:A Start: 04-26-2023 End: 04-26-[address] BENNIE RODRIGUEZ DO [facility] Start: 04-25-2023 ambulatory GUERDA VELÁSQUEZROBERTO Facilit y:A Start: 04-24-2023 End: 04-25-2023 ambulatory ZOHRA PEÑALOZA MD Facility:B Start: 04-24-2023 End: 04-24-2023 Patient encounter procedure ZOHRA PEÑALOZA MD [facility] Start: 04-19-2023 End: 04-20-2023 ambulatory GUERDA VELÁSQUEZROBERTO Facility:A Start: 04-19-2023 End: 04-19-2023 Wound Care Center GUERDA VILLARREAL DPM [facility] Start: 04-10-2023 End: 04-11-2023 ambulatory GUERDA VELÁSQUEZCOYORDY Facility:A Start: 04-10-2023 End: 04-10-2023 Wound Care Center GUERDA VILLARREAL DPM [facility] Start: 04-09-2023 ambulatory GUERDA LASCOLA Facilit y:A Start: 04-04-2023 End: 04-05-2023 ambulatory GUERDA LASCOLA Facility:A Start: 04-04-2023 End: 04-04-2023 Wound Care Center GUERDA VILLARREAL DPM [facility] Start: 03-30-2023 ambulatory GUERDA VELÁSQUEZCOLA Facilit y:A Start: 03-29-2023 End: 03-30-2023 ambulatory ZOHRA PEÑALOZA MD Facility:A Start: 03-29-2023 End: 03-29-[address] BENNIE RODRIGUEZ DO [facility] Start: 03-23-2023 ambulatory GUERDA LASCOLA Facilit y:A Start: 03-22-2023 End: 03-23-2023 ambulatory GUERDA LASCOLA Facility:A Start: 03-16-[address] BENNIE RODRIGUEZ DO Faci lity:A Start: 03-15-2023 End: 03-16-[address] BENNIE RODRIGUEZ DO Facility:A Start: 03-09-2023 ambulatory GUERDA LASCOLA Facilit y:A Start: 03-08-2023 End: 03-09-2023 ambulatory ZOHRA PEÑALOZA MD Facility:A Start: 03-08-2023 End: 03-08-[address] BENNIE RODRIGUEZ DO [facility] Start: 03-02-2023 ambulatory GUERDA LASCOLA Facilit y:A Start: 03-01-2023 End: 03-02-2023 ambulatory GUERDA LASCOLA Facility:A Start: 03-01-2023 End: 03-01-2023 Wound Care Center GUERDA VELÁSQUEZCOLA DPM [facility] Start: 02-28-2023 End: 03-01-2023 ambulatory MANUEL HOUSE MD Facility:B Start: 02-28-2023 End: 02-28-2023 Patient encounter procedure ANTHONY KANG PENCIL SORTER [facility] Start: 02-22-2023 End: 02-23-2023 ambulatory GUERDA VILLARREAL Facility:A Start: 02-22-2023 End: 02-22-2023 Wound Care Center GUERDA VELÁSQUEZCOLA DPM [facility] Start: 02-15-2023 End: 02-16-2023 ambulatory ZOHRA PEÑALOZA MD Facility:A Start: 02-15-2023 End: 02-15-2023 Wound Care Center GUERDA VELÁSQUEZCOLA DPM [facility] Start: 02-08-2023 End: 02-09-2023 ambulatory ZOHRA PEÑALOZA MD Facility:A Start: 02-08-2023 End: 02-08-2023 Wound Care Center GUERDA VELÁSQUEZCOLA DPM [facility] Start: 02-01-2023 End: 02-02-2023 ambulatory ZOHRA PEÑALOZA MD Facility:A Start: 02-01-2023 End: 02-01-2023 Wound Care Center GUERDA VELÁSQUEZCOLA DPM [facility] Start: 11-23-2022 End: 11-27-2022 Outreach Lab ZOHRA PEÑALOZA MD [facility] Start: 11-23-2022 End: 01-26-2023 Wound Care GUERDA VILLARREAL DPM [facility] Start: 11-18-2022 End: 11-18-2022 Emergency department patient visit ROSENDO OLIVARES DO [facility] Start: 09-16-2022 End: 09-16-2022 Patient encounter procedure SUJEY CURIEL SPACER TYPE BAR AND SEGMENT-PENCIL SORTER [facility] Start: 08-18-2022 End: 10-04-2022 Nutrition therapy DAYSI ALEXI SPACER TYPE BAR AND SEGMENT-PENCIL SORTER [facility] Start: 08-08-2022 End: 08-08-2022 Patient encounter procedure Vicky Maranda Chisholm DO Work Phone: [facility] [place] Procedures Date Procedure Procedure Detail Performing Clinician Start: 05-29-2018 Arthroplasty of knee ROSALIE LINDSAY MD Plan of Treatment Date Care Activity Detail Author Start: 11-10-2026 Urine microalbumin profile DTA P,TDAP,TD (2 - Td or Tdap) [facility] Start: 07-17-2022 COVID-19 VACCINE (5 - Booster for Moderna series) COVID-19 VACCINE (5 - Booster for Moderna series) [facility] Start: 10-29-2021 ADVANCE DIRECTIVE DISCUSSION ADVANCE DIRECTIVE DISCUSSION [facility] Start: 10-29-2021 DEPRESSION ASSESSMENT DEPRESSION ASS ESSMENT [facility] Start: 09-08-2006 DIABETES SCREEN [facility]ABET[facility] SCREEN [facility] Start: 2005 BONE DENSITY BONE DENSITY [facility] Start: 2005 PNEUMOCOCCAL: 65+ (1 - PCV) PNEUMOCOCCAL: 65+ (1 - PCV) [facility] Start: 1990 SHINGRIX VACCINE (1 of 2) LOPEZ GRIX VACCINE (1 of 2) [facility] Start: 1959 Urine microalbumin profile DTAP,TDAP ,TD (1 - Tdap) [facility] Immunizations Immunization Date Immunization Notes Care Provider Fa juju 07-14-2023 influenza virus vaccine, unspecified formulation SHERRELL SHAH SPACER TYPE BAR AND SEGMENT-PENCIL SORTER [facility] 07-14-2023 RSV vaccine preF3, recombinant SHERRELL SHAH SPACER TYPE BAR AND SEGMENT-PENCIL SORTER [facility] 11-18-2022 tetanus toxoid, redu anita diphtheria toxoid, and acellular pertussis vaccine, adsorbed ROSENDO [facility] DO [facility] 07-26-2022 influenza virus vaccine, unspecified formulation SUJEYMelvi CURIEL SPACER TYPE BAR AND SEGMENT-PENCIL SORTER [facility] 05-22-2022 COVID-19, mRNA, LNP- S, PF, 100 mcg or 50 mcg dose; Translations: [Moderna COVID-19 Vaccine] ZOHRA PEÑALOZA MD [facility] 09-30-2021 zoster vaccine recombinant MANFRED ROBLES SPACER TYPE BAR AND SEGMENT-PENCIL SORTER [facility] 09-07-2021 COVID-19, mRNA, LNP- S, PF, 100 mcg/ 0.5 mL dose; Translations: [Moderna COVID-19 Vaccine] PRABHU LINDSAY MD [facility] 08-16-2021 influenza virus vaccine, unspecified formulation RISHI SALES DO [facility] 04-08-2021 zoster vaccine recombinant RISHI SALES DO [facility] 12-31-2020 COVID-19, mRNA, LNP- S, PF, 100 mcg/ 0.5 mL dose; Translations: [Moderna COVID-19 Vaccine] PRABHU LINDSAY MD [facility] 12-03-2020 SARS-CoV-2 (COVID-19 ) [id number] vaccine PRABHU LINDSAY MD [facility] 07-05-2020 influenza virus vaccine, unspecified formulation PRABHU LINDSAY MD [facility] 07-08-2019 pneumococcal polysaccharide vaccine, 23 valent; Translations: [Pneumovax 23] PRABHU LINDSAY MD [facility] 07-08-2019 influenza, injectabl e, quadrivalent, preservative free; Translations: [Fluarix PF Quadrivalent ] PRABHU LINDSAY MD [facility] 07-25-2018 influenza virus vaccine, unspecified formulation PRABHU LINDSAY MD [facility] 08-20-2017 influenza virus vaccine, unspecified formulation PRABHU LINDSAY MD [facility] 08-20-2017 pneumococcal conjuga te vaccine, 13 valent PRABHU LINDSAY MD [facility] 11-10-2016 tetanus toxoid, redu anita diphtheria toxoid, and acellular pertussis vaccine, adsorbed PRABHU LINDSAY MD [facility] 07-26-2016 influenza virus vaccine, unspecified formulation PRABHU LINDSAY MD [facility] 08-17-2015 influenza virus vaccine, unspecified formulation PRABHU LINDSAY MD [facility] 08-11-2015 influenza virus vaccine, unspecified formulation PRABHU LINDSAY MD [facility] 07-29-2014 influenza virus vaccine, unspecified formulation PRABHU LINDSAY MD [facility] 08-15-2013 influenza virus vaccine, unspecified formulation PRABHU LINDSAY MD [facility] 10-29-2012 zoster vaccine, live PRABHU LINDSAY MD [facility] 09-27-2012 zoster vaccine, live PRABHU LINDSAY MD [facility] Payers Date Payer Category Payer Medicare [id number] 2021 Medicare AETNA MEDICARE A ETNA MEDICARE PPO [id number] 2021-Present [phone] [address] [place] [address] PPO [id number] 2020 Private Health Insurance [id number] 2014 Medicare [id number] 1940 Unknown [id number] 2.16.840.1.195883.3.579.2.6 1940 Unknown [id number] 2.16.840.1.808475.3.579.2.6 1940 Unknown [id number] 2.16.840.1.098698.3.579.2.6 1940 Unknown [id number] 2.16.840.1.799432.3.579.2.6 1940 Unknown [id number] 2.16.840.1.801241.3.579.2.6 1940 Unknown [id number] 2.16.840.1.418915.3.579.2.6 1940 Unknown [id number] 2.16.840.1.459032.3.579.2.6 1940 Unknown [id number] 2.16.840.1.959400.3.579.2.6 1940 Unknown [id number] 2.16.840.1.109499.3.579.2.6 1940 Unknown [id number] 2.16.840.1.537971.3.579.2.6 1940 Unknown [id number] 2.16.840.1.719272.3.579.2.6 1940 Unknown [id number] 2.16.840.1.631117.3.579.2.6 1940 Unknown [id number] 2.16.840.1.395172.3.579.2.6 1940 Unknown [id number] 2.16.840.1.086761.3.579.2.6 1940 Unknown [id number] 2.16.840.1.428091.3.579.2.6 1940 Unknown [id number] 2.16.840.1.818374.3.579.2.6 1940 Unknown [id number] 2.16.840.1.084585.3.579.2.6 1940 Unknown [id number] 2.16.840.1.725446.3.579.2.6 1940 Unknown [id number] 2.16.840.1.782334.3.579.2.6 1940 Unknown [id number] 2.16.840.1.666520.3.579.2.6 1940 Unknown [id number] 2.16.840.1.749911.3.579.2.6 1940 Unknown [id number] 2.16.840.1.078161.3.579.2.6 1940 Unknown [id number] 2.16.840.1.074481.3.579.2.6 1940 Unknown [id number] 2.16.840.1.466565.3.579.2.6 1940 Unknown [id number] 2.16.840.1.635287.3.579.2.6 1940 Unknown [id number] 2.16.840.1.460678.3.579.2.6 1940 Unknown [id number] 2.16.840.1.329470.3.579.2.6 1940 Unknown [id number] 2.16.840.1.453241.3.579.2.6 1940 Unknown [id number] 2.16.840.1.506141.3.579.2.6 1940 Unknown [id number] 2.16.840.1.402489.3.579.2.6 1940 Unknown [id number] 2.16.840.1.891851.3.579.2.6 1940 Unknown [id number] 2.16.840.1.227488.3.579.2.6 1940 Unknown [id number] 2.16.840.1.117043.3.579.2.6 1940 Unknown [id number] 2.16.840.1.068256.3.579.2.6 1940 Unknown [id number] 2.16.840.1.094693.3.579.2.6 1940 Unknown [id number] 2.16.840.1.091172.3.579.2.6 1940 Unknown [id number] 2.16.840.1.918401.3.579.2.6 1940 Unknown [id number] 2.16.840.1.774395.3.579.2.6 1940 Unknown [id number] 2.16.840.1.205068.3.579.2.6 1940 Unknown [id number] 2.16.840.1.111040.3.579.2.6 1940 Unknown [id number] 2.16.840.1.951902.3.579.2.6 1940 Unknown [id number] 2.16.840.1.129728.3.579.2.6 1940 Unknown [id number] 2.16.840.1.272021.3.579.2.6 1940 Unknown [id number] 2.16.840.1.988488.3.579.2.6 1940 Unknown [id number] 2.16.840.1.102077.3.579.2.6 1940 Unknown [id number] 2.16.840.1.364710.3.579.2.6 1940 Unknown [id number] 2.16.840.1.818102.3.579.2.6 1940 Unknown [id number] 2.16.840.1.768443.3.579.2.6 1940 Unknown [id number] 2.16.840.1.589754.3.579.2.6 1940 Unknown [id number] 2.16.840.1.682505.3.579.2.6 1940 Unknown [id number] 2.16.840.1.610743.3.579.2.6 1940 Unknown [id number] 2.16.840.1.427709.3.579.2.6 1940 Unknown [id number] 2.16.840.1.933996.3.579.2.6 1940 Unknown [id number] 2.16.840.1.859291.3.579.2.6 1940 Unknown [id number] 2.16.840.1.898750.3.579.2.6 1940 Unknown [id number] 2.16.840.1.832207.3.579.2.6 1940 Unknown [id number] 2.16.840.1.007069.3.579.2.6 1940 Unknown [id number] 2.16.840.1.135477.3.579.2.6 1940 Unknown [id number] 2.16.840.1.327985.3.579.2.6 1940 Unknown [id number] 2.16.840.1.315138.3.579.2.6 1940 Unknown [id number] 2.16.840.1.204704.3.579.2.6 1940 Unknown [id number] 2.16.840.1.160482.3.579.2.6 1940 Unknown [id number] 2.16.840.1.134560.3.579.2.6 1940 Unknown [id number] 2.16.840.1.731858.3.579.2.6 1940 Unknown [id number] 2.16.840.1.459358.3.579.2.6 1940 Unknown [id number] 2.16.840.1.497405.3.579.2.6 1940 Unknown [id number] 2.16.840.1.762103.3.579.2.6 1940 Unknown [id number] 2.16.840.1.764513.3.579.2.6 1940 Unknown [id number] 2.16.840.1.728402.3.579.2.6 27 1940 Unknown [id number] 2.16.840.1.997478.3.579.2.6 27 Unknown [id number] 2.16.840.1.518524.3.579.2.2 73 Unknown [id number] 2.16.840.1.652834.3.579.2.2 73 Social History Date Type Detail Facility Start: 05-30-2019 End: 08-03-2022 Never smoked tobacco (finding) [facility] Sex Assigned At Female [facility] Start: 08-03-2022 Tobacco use and exposure Smokeless tobacco non-user [facility] Start: 1940 Sex Assigned At Not on file [facility] Start: 07-24-2022 End: 08-08-2022 Exposure to SARS-CoV-2 (event) Not sure [facility] Functional Status Date Assessment Result Facility 11-26-2023 Functional Status Nurse Adair talavera q2hrs Performed Other: 7a-3pm [facility] 11-26-2023 Functional Status Lunch Percent 50 [facility] 11-26-2023 Functional Status Independent [facility] 11-26-2023 Functional Status 35 [facility] 11-26-2023 Functional Status Repositions self [facility] 11-26-2023 Functional Status Sequential Com pression Device bilateral knee high applied/on [facility] 11-26-2023 Functional Status [facility] 11-26-2023 Functional Status [facility] 11-25-2023 Functional Status [facility] 11-25-2023 Functional Status [facility] 11-25-2023 Functional Status Multilevel home [facility] 11-25-2023 Functional Status Room check performed [facility] 11-25-2023 Functional Status Diane Kwan [facility] 11-24-2023 Functional Status Activity Dion tance Supervision [facility] 11-24-2023 Functional Status Diane Kwan [facility] 11-24-2023 Functional Status Sensory Deficits None [facility] 08-23-2023 Functional Status Nurse Adair talavera q2hrs Performed Other: 7AM-130PM [facility] 08-23-2023 Functional Status Refused Diane Kwan [facility] 08-23-2023 Functional Status Min A Diane [facility] 08-23-2023 Functional Status Identified as high risk, Fall ID band on, Door open, Non-Slip footwear, Room check performed [facility] 08-23-2023 Functional Status Diane Kwan [facility] 08-23-2023 Functional Status Diane Kwan [facility] 08-22-2023 Functional Status Up to Chair Returned to bed [facility] 08-22-2023 Functional Status Diane Kwan [facility] 08-22-2023 Functional Status Diane Kwan [facility] 08-22-2023 Functional Status Diane Kwan [facility] 08-22-2023 Functional Status Breakfast Percent 50 [facility] 08-21-2023 Functional Status Diane Kwan [facility] 08-21-2023 Functional Status Diane Kwan [facility] 08-21-2023 Functional Status Lunch Percent 50 [facility] 08-21-2023 Functional Status Ambulation in Room, Up with assistance [facility] 08-21-2023 Functional Status Multilevel leydi e, 2nd floor bedroom, 2nd floor bathroom [facility] 08-21-2023 Functional Status Sensory Defici ts Hearing deficit, left ear, Hearing deficit, right ear [facility] 11-18-2022 Functional Status Independent [facility] 11-18-2022 Functional Status Standard Safet y ID band on, Call device within reach, Bed in low position, Wheels locked, Visitor at bedside, Safety level maintained [facility] 04-03-2022 Functional Status Assistive Device Cane A [facility] 04-03-2022 Functional Status Standard Safet y ID band on, Call device within reach, Bed in low position, Wheels locked, Upper/Half-Length side-rails up, Bedside Cart Locked, Safety level maintained [facility] Mental Status Date Assessment Result Facility 11-26-2023 Mental Status Oriented x 4 [facility] 11-26-2023 Mental Status [facility] 11-25-2023 Mental Status [facility] 08-23-2023 Mental Status Oriented x 4 [facility] 08-22-2023 Mental Status [facility] 08-22-2023 Mental Status [facility] 08-21-2023 Mental Status [facility] 11-18-2022 Mental Status Orientation Oriented x 4 [facility] 11-18-2022 Mental Status [facility] 04-03-2022 Mental Status Orientation Oriented x 4 [facility] Clinical Notes 02-21-2021 to 11-26-2023 Note Date & Type Note Facility 11-26-2023 Hospital Discharg e instructions Patient Education 11/26/2023 12:30:02 Influenza, Adult, Tluh-nm-Spin Influenza, Adult Influenza is also called the [...] get better. Your doctor may suggest: Taking btyx-err-ciqkzqi medicines. Drinking plenty of fluids. The flu [...] fruit juice). ?Low-calorie sports drinks. Eat bland, rmub-nf-oapebl foods in small amounts as you are able. These foods include: ?Bananas. ?Applesauce. ?Rice. ?Lean meats. ?Heber-Overgaard. ?Crackers. Do not eat or drink: ?Fluids that have a lot of sugar or caffeine. ?Alcohol. ?Spicy or fatty foods. General instructions Take fkqe-ise-iwwoupg and prescription medicines only as told by [...] use soap and water, use alcohol-based hand foundation digger. Keep all follow-up visits as told by [...] It is caused by a virus. Take fvwl-hqd-eleyftf and prescription medicines only as told by your doctor. Getting a flu shot every year is the best way to avoid getting the flu. This information is not intended to replace advice given to you by your health care provider. Make sure you discuss any questions you have with your health care provider. Document Released: 07/24/2009 Document Revised: 04/02/2019 Document Reviewed: 04/02/2019 [employer] Patient Education 2020 [employer] [place] [employer]. 11/24/2023 04:31:59 Bronchitis, Antibiotic Treatment (Adult) Bronchitis, [...] away from secondhand smoke. You may use djej-njz-utmnczr medicines to control fever or pain, unless [...] loosen mucus in your nose and lungs. Zgil-rwr-qbzdsxt cough, cold, and sore-throat medicines will not [...] Trouble breathing, wheezing, or pain with breathing 1973-1870 [employer]. [address] [place] [address]. All rights reserved. This information is not intended as a substitute for professional medical care. Always follow your healthcare professional's instructions. Follow Up Care 11/24/2023 04:12:51 With:ZOHRA PEÑALOZA MD Address: [address] [place] [address]- When: Unknown With:ZOHRA PEÑALOZA MD Address: [address] [place] [address]- When:2-4 days Comments:Please call to schedule your post-hospital follow-up appointment. [facility] 11-26-2023 Note Discharge Instructions Thank you for allowing [facility] to assist you with your healthcare needs. The following is important discharge information regarding your hospital visit. Your Care Team Vicky Velasquez PENCIL SORTER Your Diagnosis Atrial fibrillation Hyperkalemia Hyponatremia Influenza [...] InformationACC POC Established Patient 11/26/2023 02:30 PM [facility] [phone] ACC POC Established Patient 11/27/2023 02:00 PM [facility] [phone] PC OV Controlled Medication 02/05/2024 02:00 PM EDT ZOHRA PEÑALOZA MD [facility] Follow Up Appointments Follow Up with ZORHA PEÑALOZA MD When Where: [address] [place] [address]- Follow Up with ZOHRA PEÑALOZA MD When Within 2-4 days Why: Please call to schedule your post-hospital follow-up appointment. Where: [place] [place] [address]- The Following Activity and Diet Have Been [...] by mouth Once a day Pickup at [id number] Unchanged acetaminophen-hydrocodone ([place] 325- 5 mg oral tablet) 1 tab(s) [...] wound Atrial fibrillation Pharmacy Information [id number]: [address] [place], [place] [id number] [phone] Please take this list to your next [...] may report side effects to FDA at 1-464-BOE-0005. What other drugs will affect oseltamivir? Other drugs may affect oseltamivir, including prescription and ytza-shu-fjkopvf medicines, vitamins, and herbal products. Tell your [...] to ensure that the information provided by [employer] ('[employer]') is accurate, up-to-date, and complete, but no guarantee is made to that effect. Drug information contained herein may be time sensitive. [employer] information has been compiled for use by healthcare practitioners and consumers in the [place] and therefore [employer] does not warrant that uses outside of the [place] are appropriate, unless specifically indicated otherwise. [employer]'s drug information does not endorse drugs, diagnose patients or recommend therapy. [employer] drug information is an informational resource designed [...] effective or appropriate for any given patient. [facility] does not assume any responsibility for any aspect of healthcare administered with the aid of information [facility] provides. The information contained herein is not intended to cover all possible uses, directions, precautions, warnings, drug interactions, allergic reactions, or adverse effects. If you have questions about the drugs you are taking, check with your doctor, nurse or pharmacist. Copyright 0656-6074 6sicuro.it. Version: 12.. Revision Date: 07/23/2018. benzonatate (baljinder milton) What [...] may report side effects to FDA at 4-884-TSP-5778. What other drugs will affect benzonatate? Using benzonatate with other drugs that make you drowsy can worsen this effect. Ask your doctor before using opioid medication, a sleeping pill, a muscle relaxer, or medicine for anxiety or seizures. Other drugs may affect benzonatate, including prescription and ptay-lfa-bxvccrk medicines, vitamins, and herbal products. Tell your [...] to ensure that the information provided by 6sicuro.it. ('Multum') is accurate, up-to-date, and complete, but no guarantee is made to that effect. Drug information contained herein may be time sensitive. Parkya information has been compiled for use by healthcare practitioners and consumers in the [place] and therefore Parkya does not warrant that uses outside of the [place] are appropriate, unless specifically indicated otherwise. Interactivos drug information does not endorse drugs, diagnose patients or recommend therapy. Internet Gold - Golden Lines drug information is an informational resource designed [...] effective or appropriate for any given patient. Parkya does not assume any responsibility for any aspect of healthcare administered with the aid of information Parkya provides. The information contained herein is not intended to cover all possible uses, directions, precautions, warnings, drug interactions, allergic reactions, or adverse effects. If you have questions about the drugs you are taking, check with your doctor, nurse or pharmacist. Copyright 5543-3386 6sicuro.it. Version: 08.29. Revision Date: 05/31/2023. Education Materials [...] get better. Your doctor may suggest: Taking anpp-mne-lnxlxjf medicines. Drinking plenty of fluids. The flu [...] juice). ? Low-calorie sports drinks. Eat bland, mwnv-ru-bflbjm foods in small amounts as you are able. These foods include: ? Bananas. ? Applesauce. ? Rice. ? Lean meats. ? Heber-Overgaard. ? Crackers. Do not eat or drink: ? Fluids that have a lot of sugar or caffeine. ? Alcohol. ? Spicy or fatty foods. General instructions Take vrdx-ezw-fadqipd and prescription medicines only as told by [...] use soap and water, use alcohol-based hand foundation digger. Keep all follow-up visits as told by [...] It is caused by a virus. Take zcru-adw-vfwtvue and prescription medicines only as told by your doctor. Getting a flu shot every year is the best way to avoid getting the flu. This information is not intended to replace advice given to you by your health care provider. Make sure you discuss any questions you have with your health care provider. Document Released: 07/24/2009 Document Revised: 04/02/2019 Document Reviewed: 04/02/2019 [employer] Patient Education 2020 Elsevier Inc. Bronchitis, Antibiotic Treatment (Adult) Bronchitis is [...] away from secondhand smoke. You may use ujne-qvy-zvieoec medicines to control fever or pain, unless [...] loosen mucus in your nose and lungs. Scnp-ahh-nnulmce cough, cold, and sore-throat medicines will not [...] Trouble breathing, wheezing, or pain with breathing 5571-6912 [employer]. [address] [place] [address] 07483. All rights reserved. This information is not intended as a substitute for professional medical care. Always follow your healthcare professional's instructions. Additional Information VACCINATE! IT SAVES LIVES! Members of the community who have not yet received the COVID-19 vaccine and would like to receive it can visit one of [facility] vaccine clinics. There are many vaccine clinic locations within the [facility]. For locations and available times, please visit https://gettheshot.coronavirus.[place].gov/. It is important to note that some COVID mobile vaccine clinics are held outdoors and may be canceled in rainy or stormy conditions. To learn more about pediatric vaccinations (ages 5-11), we invite you to visit the [facility] webpage. https://www.[facility].org/p ages/3800-Pfgiw-Fqjjscbgwai-Freq pofphw-Npipi-Lvcbipcsu.html To learn more about the COVID-19 vaccine, we invite you to visit the CDC website for a list of frequently asked questions.https://www.cdc.gov/co ronavirus/2019-ncov/vaccines/faq .html [facility] Patient Portal Access Instructions: Stay connected with your healthcare team and access your personal medical information anytime with the [facility] Patient Portal. Please follow the directions below to create your [facility] account: 1.Access the email account you provided upon registration to the hospital/physician office.2.Look for an invitation email from [facility].3.Open the email and access the invitation link: Accept Invitation to [facility].4.Fill in the required salas to create your account. To access your account, visit [email or web address]. Click the blue button labeled Access Patient [...] you will allow to register on the [facility] Patient Portal for access to your information. You can also access the [facility] Patient Portal on the [facility] aruna. Simply click on Patient Portal and then log into your account. If you would like to receive a full copy of your medical records, please contact the [facility] Medical Records Department by calling [phone], Sunday through Sunday between 8 a.m. and [...] Call your local pharmacy or go to [email or web address] [email or web address] to find one close to you.3.Make use of household items: Use cat litter or old coffee grounds to dispose medications if other options are not available. Mix your drugs with these household products, seal them in an airtight container and throw it into the garbage. Call [facility]: [phone] to be sure your drugs can be [...] COPY. Signatures Patient Education Materials Influenza, Adult, Sfbu-oq-Gpfp Bronchitis, Antibiotic Treatment (Adult) Medication Leaflets oseltamivir, benzonatate My discharge plan and instructions have been reviewed and explained to me and I,JEANINE COLLAZO understand my current condition and have read and understand these discharge instructions. I have received a written copy of the plan/instructions. If I have questions, I am aware that I should contact my doctor. Patient/Clinical Trial Data Manager Signature: Date/Time: Relationship to Patient: Witness Name/Signature: Date/Time: [facility] 11-25-2023 Note Date of Service 11/25/2023 Chief [...] PT and OT to evaluate and treat. environmental services associate following for discharge planning. 3. Hyperkalemia Acute, [...] by VICKY VELASQUEZ on 11/25/2023 01:55 PM [facility] 1. Hyponatremia Acute, likely secondary to dehydration [...] Appointments Appointment Date:11/28/2023 02:00:00 PM Scheduled Provider: Location:[facility] Appointment Type:ACC POC Established Patient Appointment Date:02/05/2024 02:00:00 PM Scheduled Provider:ZOHRA PEÑALOZA MD Location:[facility] Appointment Type:PC OV Controlled Medication Future Scheduled Tests Radiology* CT Shoulder w/o Contrast Left 04/24/23 [facility] 01-27-2024 Note Date of Service 11/24/2023 Chief [...] diastolic heart failure and vertigo, presented to [facility] emergency department with the chief complaint [...] 126, potassium 5.3, BUN 37 and creatinine 1.19.BNP 843. Troponin negative. COVID-19, RSV and Flu B negative. Flu A positive. Patient was administered 500 cc NS, 1 gram Ceftriaxone IV and 500 mg Azithromycin IV in the ED. The case was discussed with the ED physician who recommended admission for hyponatremia and questionable pneumonia. Patient was transferred to telemetry for further evaluation and treatment. We will start Tamiflu 30 mg PO BIDfor 5 days to treat influenza A. We [...] attempted due to paced rhythm Electronic Signature: MARSHALL ROSENDO DO 11/24/2023 04:38:34 Assessment/Plan 1. Hyponatremia Acute, likely [...] fibrillation CAD (coronary artery disease) CAD IN [place] Cataract Cataract of left eye Cerumen [...] Insomnia Knee laceration Labyrinthitis Left shoulder pain shelter prescription opiate use Lower back pain Mixed [...] capsule 0.5 mcg = 2 cap(s), Oral, Mon/Sun/Sun carvedilol 6.25 mg oral tablet Centrum Silver oral tablet 1 tab(s), PO, Daily Colace 100 mg oral capsule 100 mg = 1 cap(s), Oral, BID Flonase 50 mcg/inh nasal spray 50 mcg = 1 spray(s), PRN, Nostril, each, BID Lasix 40 mg oral tablet 40 mg = 1 tab(s), Oral, qDay Harlem 325- 5 mg oral tablet 1 tab(s), [...] Denies. Living situation: Home with assistance. Primary Supervisor Unloading: Self, . Lives In: [facility] home. Current Home Treatments None. Professional Skilled [...] by VICKY VELASQUEZ on 11/24/2023 01:49 PM [facility]01-27-2024 Note ORIGINAL EXAMINATION: TWO XRAY VIEWS OF [...] Date: 11/24/2023 6:31:36 AM Ordering Provider: [facility] NoteAfib/flutter and ventricular-paced rhythm No further analysis attempted due to paced rhythm Electronic Signature: ROSENDO OLIVARES DO 11/24/2023 04:38:[address] [place] [address] [facility] 10-26-2023 Hospital Discharge instructions Patient Education 08/23/2023 12:26:12 Cellulitis, Adult, Ceqc-jp-Jaad Cellulitis, Adult Cellulitis is a skin infection. [...] Follow these instructions at home: Medicines Take imox-quc-zeflznj and prescription medicines only as told by [...] 04/02/2009 Document Revised: 03/06/2019 Document Reviewed: 03/06/2019 [employer] Patient Education 2020 [employer]. Follow Up Care 08/20/2023 23:47:23 With:ASHLEY CROSS MD, [facility], Wound Care, Wound Care Service Address: [address] [place] [phone] When: Unknown Comments:Please call to schedule patient for wound care. His office was closed and I wasn't able to schedulethis appointment for patient. [facility] 10-26-2023 Note Discharge Instructions Thank you for allowing [facility] to assist you with your healthcare needs. The following is importantdischarge information regarding your hospital visit. Your Care Team [facility] Your Diagnosis Acute bronchitis CHRIS (acute kidney injury) Chronic pain Hyponatremia Lower extremity cellulitis Wound reevaluation with or without suture removal What to do next Scheduled Follow-Up Appointments Appointment Type When Where Contact InformationACC POC Established Patient 08/24/2023 02:30 PM [phone] Follow Up Appointments Follow Up with ASHLEY CROSS MD, [facility], Wound Care, Wound Care Service When Why: Please call to schedule patient for wound care. His office was closed and I wasn't able to schedule this appointment for patient. Where: [address] [place] [phone] The Following Activity and Diet Have Been [...] Signed By - Ordered -- 08/23/23 11:42:00 EDTMIKIE RACHEL L APRN-ZURI Transfer of Care Prognosis - Ordered [...] oral tablet) 1 tab(s) by mouth Every Sun/Sun//Sun//Sat Unchanged albuterol (albuterol MDI (90 mcg/ inh) CFC free inhalation aerosol) 2 puff(s) by inhalation Every 6 hours as needed for as needed for wheezing Unchanged calcitriol (calcitriol 0.25 mcg oral capsule) 1 cap by mouth Every Sun / / / Sat Unchanged calcitriol (calcitriol 0.25 mcg oral capsule) [...] Follow these instructions at home: Medicines Take rhus-cpf-jkczsxl and prescription medicines only as told by [...] 04/02/2009 Document Revised: 03/06/2019 Document Reviewed: 03/06/2019 [employer] Patient Education 2020 [employer] [place] [employer]. Additional Information VACCINATE! IT SAVES LIVES! Members of the community who have not yet received the COVID-19 vaccine and would like to receive it can visit one of [facility] vaccine clinics. There are many vaccine clinic locations within the [facility]. For locations and available times, please visit https://[email or web address]/. It is important to note that some COVID mobile vaccine clinics are held outdoors and may be canceled in rainy or stormy conditions. To learn more about pediatric vaccinations (ages 5-11), we invite you to visit the [facility] webpage. https://www.[employer].org/pages/6976-Pgadl-Ahwfpoqzank-Rkkqvppkfh-Xzesk-Kko stions.htmlTo learn more about the COVID-19 vaccine, we invite you to visit the CDC website for a list of frequently asked questions.https://www.cdc.gov/coronavirus/2019-ncov/vaccines/faq.html [facility] Patient Portal Access Instructions: Stay connected with your healthcare team and access your personal medical information anytime with the [facility] Patient Portal. Please follow the directions below to create your [facility] account: 1.Access the email account you provided upon registration to the hospital/physician office.2.Look for an invitation email from [facility].3.Open the email and access the invitation link: AcceptInvitation to [facility].4.Fill in the required salas to create your account. To access your account, visit [employer]/[email or web address]. Click the blue button labeled Access Patient Portal and then log in with the username and password that you created in the steps above. You will be able to view your test results, lab results, a summary of your visits, upcoming appointments and more. There is also a convenient messaging option where you can send secure messages to your p rovider. In addition, you will have the ability to download any documents or summaries to your computer and/or send the information securely to a physician. Remember that your healthcare information is confidential, so carefully consider who you will allowto register on the [facility] for access to your information. You can also access the [facility] on the [facility] aruna. Simply click on Patient Portal and then log into your account. If you would like to receive a full copy of your medical records, please contact the [facility] Medical Records Department by calling [phone], Sunday through Sunday between 8 a.m. and [...] Call your local pharmacy or go to [email or web address] Therapeutics/[email or web address] to find one close to you.3.Make use of household items: Use cat litter or old coffee grounds to dispose medications if other options arenot available. Mix your drugs with these household products, seal them in an airtight container andthrow it into the garbage. Call [facility]: [phone] to be sure your drugs can be [...] COPY. Signatures Patient Education Materials Cellulitis, Adult, Cbcg-fy-Asyd Medication Leaflets My discharge plan and instructions have been reviewed and explained to me and I,JEANINE COLLAZO understand my current condition and have read and understand these discharge instructions. I have received a written copy of the plan/instructions. If I have questions, I am aware that I should contact my doctor. Patient/Clinical Trial Data Manager Signature: Date/Time: Relationship to Patient: Witness Name/Signature: Date/Time: [facility]10-25-2023 Note Date of Service 08/22/2023 Chief Complaint Right knee pain Subjective 83-year-old female with past medical history of heart failure with preserved ejection fraction, A-fib on Coumadin, AV block status post pacemaker, pulmonary hypertension, hyperlipidemia, pericardial effusion in the past status post pericardiocentesis. Presented to [facility] on 08/21/2023 with complaints of right knee swelling and pain. Approximately 10 days prior to admission, did have a mechanical fall landing on her knees. Did result in a right knee laceration, went to [facility] where several stitches were placed by [...] tolerating room air. Knee/pelvis x-ray reviewed from [facility] done on 08/11/2023 that demonstrated no fracture. Was noted to have erythema and edema surrounding right lower extremity wound. Wound was approximated, however the surface was noted to be black. Placed on IV antibiotics for treatment of cellulitis. Coumadin held due to elevated INR. Case was discussed with wound care physician at [facility] who recommended bacitracin and Adaptic with outpatient [...] mcg Capsule 0.5 mcg 2 cap(s), Oral, Sun/Sun/Sun calcitriol 0.25 mcg Capsule 0.25 mcg 1 cap(s), Oral, Sun/Tues/Thurs/Sat carvedilol 3.125 mg tablet 6.25 mg 2 tab(s), Oral, BID cefTRIAXone 2 gram(s), IV Piggyback, qDay fluticasone nasal 0.05 mg/inh Crescent 100 mcg 2 spray(s), Nostril, each, BID [...] hours. Pre-CERT started, plan for discharge to [facility]. CODE STATUS: Full code Discussed with patient family at the bedside, discussed with Dr. Aguilar. Time Spent Total time spent reviewing labs, diagnostics, evaluating the patient, and medical decision makin minutes Digitally Signed by RISHI ALVARENGA on 08/22/2023 10:23 AM [facility]10-24-2023 Evaluation + Plan noteExtracted from: Title:History and [...] knee. Discussed with wound care physician at [facility] who recommended outpatient follow-up with wound clinic. [...] Appointments Appointment Date:08/24/2023 02:30:00 PM Scheduled Provider: Location:[facility] Appointment Type:ACC POC Established Patient Future Scheduled Tests Radiology* CT Shoulder w/o Contrast Left 04/24/23 [facility] 10-24-2023 Note ORIGINAL HISTORY: Fall, laceration, discoloration [...] Date: 08/21/2023 1:09:44 PM Ordering Provider[facility]* Exam Date Time Procedure Performing Provider Status 08/21/23 10:57 AM VL Venous US/Doppler One Leg (DVT) AOH Auth (Verified) [facility] 10-24-2023 Note Date of Service 08/21/2023 Chief Complaint fell 10 days ago, has been to [facility] and family provider, was unable to take bactrim due to vomiting. History of Present Illness 83-year-old female with past medical history of heart failure with preserved ejection fraction, A-fib on Coumadin, AV block status post pacemaker, pulmonary hypertension, hyperlipidemia, pericardial effusion in the past status post pericardiocentesis. Presented to [facility] on 08/21/2023 with complaints of right knee swelling and pain. Approximately 10 days prior to admission, did have a mechanical fall landing on her knees. Did result in a right knee laceration, went to [facility] where several stitches were placed by [...] tolerating room air. Knee/pelvis x-ray reviewed from [facility] done on 08/11/2023 that demonstrated no fracture. [...] knee. Discussed with wound care physician at [facility] who recommended outpatient follow-up with wound clinic. [...] fibrillation CAD (coronary artery disease) CAD IN [place] Cataract Cataract of left eye Cerumen [...] Insomnia Knee laceration Labyrinthitis Left shoulder pain shelter prescription opiate use Lower back pain Mixed [...] tablet 6 mg = 1 tab(s), Oral, Sun/Sun//Sun//Sat Zofran 4 mg oral tablet 4 mg [...] Denies. Living situation: Home with assistance. Primary Supervisor Unloading: Self, . Lives In: Multilevel home. Current [...] RISHI ALVARENGA APRN-ZURI on 08/21/2023 11:56 AM [facility]08-10-2023 Note* Exam Date Time Procedure Performing Provider Status 06/07/23 10:13 AM VL - ABIs (ankles only) - CV Auth (Verified) [facility] 01-21-2023 Hospital Discharge instructions Patient Education 11/18/2022 17:06:43 [...] be painfulwhen eating. You may use an zvek-suw-ufhefua local numbing solution for pain relief. If [...] off before 7 days Wound edges re-open [phone] [employer]. [address] [place] [address], [place] [id number]. All rights reserved. This information is not intended as a substitute for professional medical care. Always follow yourhealthcare professional's instructions. Follow Up Care 11/18/2022 16:43:38 With:Go to emergency room if symptoms worsen Address:Unknown When:2-4 days With:ZOHRA PEÑALOZA MD Address: [address] [place] [address] [place] [address]- When:2-4 days [facility] 01-21-2023 Note Discharge Instructions Thank you for allowing [facility] to assist you with your healthcare needs. [...] When Within 2-4 days Where: [address] [facility] [place] [address]- Allergies Cipro (Dizziness) Dicloxacillin Sodium Iodine (hives) [...] may report side effects to FDA at 1-852-KEX-8335. What other drugs will affect cephalexin? Tell your doctor about all your other medicines, especially: metformin; or probenecid. This list is not complete. Other drugs may affect cephalexin, including prescription and iayg-oxy-tjywjze medicines, vitamins, and herbal products. Not all [...] to ensure that the information provided by 6sicuro.it. ('Multum') is accurate, up-to-date, and complete, but no guarantee is made to that effect. Drug information contained herein may be time sensitive. Parkya information has been compiled for use by healthcare practitioners and consumers in the [place] and therefore Parkya does not warrant that uses outside of the [place] are appropriate, unless specifically indicated otherwise. Interactivos drug information does not endorse drugs, diagnose patients or recommend therapy. Interactivos drug information isan informational resource designed to [...] effective or appropriate for any given patient. Parkya does not assume any responsibility for any aspect of healthcare administered with the aid of information Parkya provides. The information contained herein is not intended to cover all possible uses, directions, precautions, warnings, drug interactions, allergic reactions, or adverse effects. If you have questions about the drugs you are taking, check with your doctor, nurse or pharmacist. Copyright 3476-0219 [facility] [employer]. Version: 10.03. Revision Date: 11/01/2020. Education Materials [...] be painfulwhen eating. You may use an wqsc-asi-hetogrw local numbing solution for pain relief. If [...] off before 7 days Wound edges re-open [phone] [employer]. [address] [place] [address]. All rights reserved. This information is not intended as a substitute for professional medical care. Always follow yourhealthcare professional's instructions. Additional Information VACCINATE! IT SAVES LIVES! Members of the community who have not yet received the COVID-19 vaccine and would like to receive it can visit one of [facility] vaccine clinics. There are many vaccine clinic locations within the [facility]. For locations and available times, please visit www.gettheshot.coronavirus.[place].org. It is important to note that some COVID mobile vaccine clinics are held outdoors and may be canceled in rainy orstormy conditions. To learn more about pediatric vaccinations (ages 5-11), we invite you to visit the [facility] webpage. https://www.[facility].org/pages/4483-Ffpbj-Lgejnqonahd-Ewseilokcq-Cmekl-Tlp stions.htmlTo learn more about the COVID-19 vaccine, we invite you to visit the [facility] website for a list of frequently asked questions. https://arp.[facility]/assets/Ltkovdtb-lkv-Irlrgfgf/qbbkr-Zbpsfgf-Cexcucrapu _Asked-Questions.pdf [facility] Patient Portal Access Instructions: Stay connected with your healthcare team and access your personal medical information anytime with the [facility] Patient Portal. If you would like a full copy of your medical records please contact the [facility] Medical Records Department Sunday through Sunday between 8a.m. and 4:30p.m. Please follow the directions below to access the portal: 1.Access the email account you provided upon registration to the [facility].2.Look for an invitation email from [facility].3.Open the email and access the invitation link: Accept Invitation to [employer]4.Fill in the required salas to create your account. Sign into [email or web address].[email or web address] with your username and password that you [...] you will allow to register on the [employer] Patient Portal for access to your information. You can also access the [employer] Patient Portal on the [employer]. Simply click on Health Records under [employer] and then click on the [employer] logo. HOW TO SAFELY DISPOSE OF PRESCRIPTION [...] Call your local pharmacy or go to [email or web address] to find one close to you.3.Make use of household items: Use cat litter or old coffee grounds to dispose medications if other options arenot available. Mix your drugs with these household products, seal them in an airtight container andthrow it into the garbage. Call [facility]: [phone] to be sure your drugs can be [...] aware that I should contact my doctor. Patient/Clinical Trial Data Manager Signature: Date/Time: Relationship to Patient: Witness Name/Signature: Date/Time: [facility]01-21-2023 Note ORIGINAL EXAMINATION: TWO XRAY VIEWS OF [...] Sign Date: 11/18/2022 5:52:22 PM Ordering Provider: [facility]01-21-2023 Note ORIGINAL EXAMINATION: TWO XRAY VIEWS [...] Sign Date: 11/18/2022 5:52:22 PM Ordering Provider: [facility]11-19-2022 Note ORIGINAL EXAMINATION: THREE XRAY VIEWS OF [...] Sign Date: 09/16/2022 12:19:25 PM Ordering Provider: SUJEY [facility]11-19-2022 Note ORIGINAL EXAMINATION: THREE XRAY VIEWS OF [...] Sign Date: 09/16/2022 12:19:25 PM Ordering Provider: SUJEY [facility]10-11-2022 History of Present illness Narrative* Vicky Chisholm [...] store and hit it against a coat gutter hanger. This caused a skin tear and [...] MG TABLET Vicky Chisholm [facility]22 NoteHNO ID: [id number] Author: Heather Lei LPN Service: ? Author Type: LICENSED NURSE Type: Progress Notes Filed: 08/03/2022 7:02 PM Note Text: Non adherant dressing applied, patient tolerated well.Heather Lei [facility]10-06-2022 NoteHNO ID: [id number] Author: Nicole Link MD Service: ? Author [...] as I explained to her Nicole Link [facility]10-06-2022 History of Present illness Narrative* [...] her Nicole Link MD [facility] in [facility]22 Instructions* Patient Instructions* Nicole Link MD - 08/03/2022 5:13 PM EDT Home wound care as explained F/u PCP for further care recheck if any problem Patient has multiple antibiotic allergies So I decided not to give antibiotic right now He may return if there is any sign of inflammation or infection as I explained to her documented in this [facility]White [facility]09-08-2022 SARS-CoV-2 (COVID-19) RNA NERY+probe Ql (Nph)Negative *NA* (07/06/22 3:42 PM)AO Auto Urine [id number] Hospital Discharge instructions Patient Education 04/03/2022 12:55:14 [...] knee Chest pain or shortness of breath [phone] [employer]. [address] [place] [address]. All rights reserved. This information is not intended as a substitute for professional medical care. Always follow yourhealthcare professional's instructions. Follow Up Care 04/03/2022 11:43:03 With:ZOHRA PEÑALOZA MD Address: [address] [facility] [place] [address]- When:2-4 days [facility] 01-03-2022 Hospital Discharge instructions Patient Education 10/31/2021 [...] t go away after bandage is removed [phone] [employer]. [address] [place] [address]. All rights reserved. This information is not intended as a substitute for professional medical care. Always follow yourhealthcare professional's instructions. 10/31/2021 18:18:01 Hematoma Hematoma A [...] blue color of the hand or foot [phone] [employer]. [address] [place] [address], [place] [address]. All rights reserved. This information is not intended as a substitute for professional medical care. Always follow yourhealthcare professional's instructions. Follow Up Care 10/31/2021 16:09:50 With:ZOHRA PEÑALOZA MD Address: [address] [facility] [place] [address]- When:2-4 days With:Go to emergency room if symptoms worsen Address:Unknown When:2-4 days [facility] 12-21-2021 Hospital Discharge instructions Patient Education 10/18/2021 [...] in 1/2 cup of warm water An bvti-rci-ffsgcqi anesthetic gargle Use medicine for more relief Kqgw-zpn-beyiuug medicine can reduce sore throat symptoms. Ask [...] swollen glands in the neck or jaw [phone] [employer]. [address] [place] [address]. All rights reserved. This information is not [...] weeks, you may need to see an roll sheeting cutter. This is a doctor who treats diseases [...] do not go away in 2 weeks [phone] [employer]. [address] [place] [address], [place] [address]. All rights reserved. This information is not intended as a substitute for professional medical care. Always follow yourhealthcare professional's instructions. Follow Up Care 10/18/2021 06:06:32 With:ZOHRA PEÑALOZA MD Address: When:2-4 days [facility] 11-22-2021 Evaluation + Plan note Diagnostic Tests Pending * Antinuclear Antibody Screen, Serum 09/19/21 * Rheumatoid Factor 09/19/21 * [facility] Send out (Blood Specimens) 09/19/21 Future Scheduled Tests Radiology* CT Spine Lumbar w/o Contrast 02/21/21 [facility] 11-15-2021 Hospital Discharge instructions Patient Education 09/12/2021 [...] swelling in the outer vaginal area (labia) [phone] [employer]. [address] [place] [address]. All rights reserved. This information is not intended as a substitute for professional medical care. Always follow yourhealthcare professional's instructions. Follow Up Care 09/12/2021 19:39:58 With:ZOHRA PEÑALOZA MD Address: When:2-4 days [facility] 11-15-2021 Evaluation + Plan note Diagnostic Tests Pending * Urine Culture 09/12/21 Future Scheduled Tests Radiology* CT Spine Lumbar w/o Contrast 02/21/21 [facility] 04-26-2021 Evaluation + Plan note Future Scheduled Tests Radiology* CT Spine Lumbar w/o Contrast 02/21/21 [facility] Evaluation + Plan note Future Appointments Appointment Date:10/19/2021 02:45:00 PM Scheduled Provider:ZOHRA PEÑALOZA MD Location:[facility] Appointment Type:PC OV Future Scheduled Tests Radiology* CT Spine Lumbar w/o Contrast 02/21/21 [facility] Evaluation + Plan note Future Appointments Appointment Date:11/03/2021 01:15:00 PM Scheduled Provider:ZOHRA PEÑALOZA MD Location:[facility] Appointment Type:PC OV ED Follow Up Diagnostic Tests Pending * PTH, Intact 10/31/21 Future Scheduled Tests Radiology* CT Spine Lumbar w/o Contrast 02/21/21 [facility] Evaluation + Plan note Future Appointments Appointment Date:11/03/2021 01:15:00 PM Scheduled Provider:ZOHRA PEÑALOZA MD Location:[facility] Appointment Type:PC OV ED Follow Up Future Scheduled Tests Radiology* CT Spine Lumbar w/o Contrast 02/21/21 [facility] [employer]aluation + Plan note Future Appointments Appointment Date:03/29/2022 02:30:00 PM Scheduled Provider: Location:[facility] Appointment Type:ACC POC Established Patient Appointment Date:05/12/2022 02:30:00 PM Scheduled Provider:ZOHRA PEÑALOZA MD Location:[facility] Appointment Type:PC OV Controlled Medication Future Scheduled Tests Radiology* CT Abdomen/Pelvis w/Oral Contrast Only 01/12/22 * XR Chest 2 Views (PA & Lateral) 03/13/22 * XR Chest 2 Views (PA & Lateral) 03/08/22 * CT Abdomen and Pelvis w/ contrast 01/18/22 [facility] Evaluation + Plan note Future Appointments Appointment Date:04/17/2022 02:30:00 PM Scheduled Provider: Location:[facility] Appointment Type:ACC POC Established Patient Appointment Date:05/12/2022 02:30:00 PM Scheduled Provider:ZOHRA PEÑALOZA MD Location:[facility] Appointment Type:PC OV Controlled Medication Future Scheduled Tests Radiology* CT Abdomen/Pelvis w/Oral Contrast Only 01/12/22 * XR Chest 2 Views (PA & Lateral) 03/13/22 * XR Chest 2 Views (PA & Lateral) 03/08/22 * CT Abdomen and Pelvis w/ contrast 01/18/22 [facility] Evaluation + Plan note Future Appointments Appointment Date:05/05/2022 01:45:00 PM Scheduled Provider:[place] [id number] Location:[facility] Appointment Type:PT Outpatient Evaluation Appointment Date:05/12/2022 02:30:00 PM Scheduled Provider:ZOHRA PEÑALOZA MD Location:[facility] Appointment Type:PC OV Controlled Medication Future Scheduled Tests Radiology* XR Chest 2 Views (PA & Lateral) 03/13/22 * XR Chest 2 Views (PA & Lateral) 03/08/22 [facility] evaluation + Plan note Future Appointments Appointment Date:07/12/2022 10:45:00 AM Scheduled Provider: Location:[facility] Appointment Type:PT Treatment - [place] Appointment Date:07/17/2022 11:00:00 AM Scheduled Provider: Location:[facility] Appointment Type:PT Treatment - [place] Appointment Date:07/18/2022 02:30:00 PM Scheduled Provider: Location:[facility] Appointment Type:ACC POC Established Patient Future Scheduled Tests Radiology* XR Chest 2 Views (PA & Lateral) 03/13/22 * XR Chest 2 Views (PA & Lateral) 03/08/22 [facility] Evaluation + Plan note Future Appointments Appointment Date:09/22/2022 02:45:00 PM Scheduled Provider: Location:[facility] Appointment Type:PC Nurse Protime Appointment Date:09/27/2022 02:30:00 PM Scheduled Provider: Location:[facility] Appointment Type:ACC POC Established Patient Future Scheduled Tests Radiology* XR Chest 2 Views (PA & Lateral) 03/13/22 * XR Chest 2 Views (PA & Lateral) 03/08/22 [facility] evaluation + Plan note Future Appointments Appointment Date:10/17/2022 02:30:00 PM Scheduled Provider: Location:[facility] Appointment Type:ACC POC Established Patient Future Scheduled Tests Radiology* XR Chest 2 Views (PA & Lateral) 03/13/22 * XR Chest 2 Views (PA & Lateral) 03/08/22 [facility] evaluation + Plan note Future Appointments Appointment Date:11/24/2022 02:00:00 PM Scheduled Provider: Location:[facility] Appointment Type:ACC POC Established Patient Future Scheduled Tests Radiology* XR Chest 2 Views (PA & Lateral) 03/13/22 * XR Chest 2 Views (PA & Lateral) 03/08/22 [facility] evaluation + Plan note Future Appointments Appointment Date:12/21/2022 02:30:00 PM Scheduled Provider: Location:[facility] Appointment Type:ACC POC Established Patient Future Scheduled Tests Radiology* XR Chest 2 Views (PA & Lateral) 03/13/22 * XR Chest 2 Views (PA & Lateral) 03/08/22 [facility] evaluation + Plan note Future Appointments Appointment Date:02/01/2023 01:30:00 PM Scheduled Provider: Location:[facility] Appointment Type:ACC POC Established Patient Future Scheduled Tests Radiology* XR Chest 2 Views (PA & Lateral) 03/13/22 * XR Chest 2 Views (PA & Lateral) 03/08/22 [facility] evaluation + Plan note Future Appointments Appointment Date:02/02/2023 02:30:00 PM Scheduled Provider: Location:[facility] Appointment Type:ACC POC Established Patient Future Scheduled Tests Radiology* XR Chest 2 Views (PA & Lateral) 03/13/22 * XR Chest 2 Views (PA & Lateral) 03/08/22 [facility] evaluation + Plan note Future Appointments Appointment Date:02/09/2023 03:30:00 PM Scheduled Provider:ZOHRA PEÑALOZA MD Location:[facility] Appointment Type:PC OV Controlled Medication Appointment Date:03/02/2023 01:00:00 PM Scheduled Provider: Location:[facility] Appointment Type:ACC POC Established Patient Future Scheduled Tests Radiology* XR Chest 2 Views (PA & Lateral) 03/13/22 * XR Chest 2 Views (PA & Lateral) 03/08/22 [facility] evaluation + Plan note Future Appointments Appointment Date:03/02/2023 01:00:00 PM Scheduled Provider: Location:[facility] Appointment Type:ACC POC Established Patient Appointment Date:03/29/2023 02:30:00 PM Scheduled Provider:ZOHRA PEÑALOZA MD Location:[facility] Appointment Type:PC OV Future Scheduled Tests Laboratory* [...] Chest 2 Views (PA & Lateral) 03/08/22 [facility] Evaluation + Plan note Future Appointments Appointment Date:02/27/2023 03:00:00 PM Scheduled Provider: Location:[facility] Appointment Type:ACC POC Established Patient Appointment Date:03/29/2023 02:30:00 PM Scheduled Provider:ZOHRA PEÑALOZA MD Location:[facility] Appointment Type: OV Future Scheduled Tests Laboratory* C-Reactive Protein [...] Chest 2 Views (PA & Lateral) 03/08/22 [facility] Evaluation + Plan note Future Appointments Appointment Date:03/28/2023 02:00:00 PM Scheduled Provider: Location:[facility] Appointment Type:ACC POC Established Patient Appointment Date:03/29/2023 02:30:00 PM Scheduled Provider:ZOHRA PEÑALOZA MD Location:[facility] Appointment Type:PC OV Future Scheduled Tests Radiology* XR Chest 2 Views (PA & Lateral) 03/13/22 * XR Chest 2 Views (PA & Lateral) 03/08/22 [facility] Evaluation + Plan note Future Appointments Appointment Date:03/28/2023 02:00:00 PM Scheduled Provider: Location:[facility] Appointment Type:ACC POC Established Patient Appointment Date:03/29/2023 02:30:00 PM Scheduled Provider:ZOHRA PEÑALOZA MD Location:[facility] Appointment Type:PC OV Future Scheduled Tests Radiology* XR Chest 2 Views (PA & Lateral) 03/13/22 [facility] Evaluation + Plan note Future Appointments Appointment Date:04/25/2023 02:30:00 PM Scheduled Provider: Location:[facility] Appointment Type:ACC POC Established Patient [facility] [employer]aluation + Plan note Future Appointments Appointment Date:04/13/2023 01:00:00 PM Scheduled Provider:[place] [id number] Location:[facility] Appointment Type:PT Outpatient Evaluation Appointment Date:04/25/2023 02:30:00 PM Scheduled Provider: Location:[facility] Appointment Type:ACC POC Established Patient [facility] Evaluation + Plan note Future Appointments Appointment Date:04/24/2023 02:00:00 PM Scheduled Provider:ZOHRA PEÑALOZA MD Location:[facility] Appointment Type:PC OV Appointment Date:04/25/2023 02:30:00 PM Scheduled Provider: Location:[facility] Appointment Type:ACC POC Established Patient [facility] Evaluation + Plan note Future Appointments Appointment Date:05/22/2023 02:30:00 PM Scheduled Provider: Location:[facility] Appointment Type:ACC POC Established Patient Diagnostic Tests Pending * Rheumatoid Factor 04/24/23 * Antinuclear Antibody Screen, Serum 04/24/23 * Vitamin B12 Level 04/24/23 Future Scheduled Tests Radiology* CT Shoulder w/o Contrast Left 04/24/23 [facility] Evaluation + Plan note Future Appointments Appointment Date:05/07/2023 03:30:00 PM Scheduled Provider:[place] [id number] Location:[facility] Appointment Type:PT Outpatient Evaluation Appointment Date:05/22/2023 02:30:00 PM Scheduled Provider: Location:[facility] Appointment Type:ACC POC Established Patient Future Scheduled Tests Radiology* CT Shoulder w/o Contrast Left 04/24/23 [facility] Evaluation + Plan note Future Appointments Appointment Date:05/17/2023 03:00:00 PM Scheduled Provider: Location:[facility] Appointment Type:PT Treatment - [place] Appointment Date:05/22/2023 02:30:00 PM Scheduled Provider: Location:[facility] Appointment Type:ACC POC Established Patient Appointment Date:05/22/2023 03:45:00 PM Scheduled Provider: Location:[facility] Appointment Type:PT Treatment - [place] Appointment Date:05/24/2023 02:15:00 PM Scheduled Provider: Location:[facility] Appointment Type:PT Treatment - [place] Diagnostic Tests Pending * TOMA (serum) 05/15/23 * Methylmalonic Acid 05/15/23 * Rheumatoid Factor 05/15/23 * Cyclic Citrullinated Peptide 05/15/23 Future Scheduled Tests Radiology* CT Shoulder w/o Contrast Left 04/24/23 [facility] Evaluation + Plan note Future Appointments Appointment Date:05/28/2023 02:30:00 PM Scheduled Provider: Location:[facility] Appointment Type:PT Treatment - [place] Appointment Date:05/31/2023 11:30:00 AM Scheduled Provider: Location:[facility] Appointment Type:PT Treatment - [place] Appointment Date:06/06/2023 02:00:00 PM Scheduled Provider: Location:[facility] Appointment Type:ACC POC Established Patient Future Scheduled Tests Radiology* CT Shoulder w/o Contrast Left 04/24/23 [facility] Evaluation + Plan note Future Appointments Appointment Date:06/13/2023 02:30:00 PM Scheduled Provider: Location:[facility] Appointment Type:PT Treatment - [place] Appointment Date:06/15/2023 01:45:00 PM Scheduled Provider:[place] [id number] Location:[facility] Appointment Type:PT Outpatient Re-Evaluation Appointment Date:06/28/2023 10:00:00 AM Scheduled Provider: Location:[facility] Appointment Type:ACC POC Established Patient Future Scheduled Tests Radiology* CT Shoulder w/o Contrast Left 04/24/23 [facility] evaluation + Plan note Future Appointments Appointment Date:06/15/2023 01:45:00 PM Scheduled Provider:[place] [id number] Location:[facility] Appointment Type:PT Outpatient Re-Evaluation Appointment Date:06/28/2023 10:00:00 AM Scheduled Provider: Location:[facility] Appointment Type:ACC POC Established Patient Future Scheduled Tests Radiology* CT Shoulder w/o Contrast Left 04/24/23 [facility] evaluation + Plan note Future Appointments Appointment Date:06/28/2023 10:00:00 AM Scheduled Provider: Location:[facility] Appointment Type:ACC POC Established Patient Future Scheduled Tests Radiology* CT Shoulder w/o Contrast Left 04/24/23 [facility] evaluation + Plan note Future Appointments Appointment Date:07/24/2023 02:00:00 PM Scheduled Provider: Location:[facility] Appointment Type:ACC POC Established Patient Future Scheduled Tests Radiology* CT Shoulder w/o Contrast Left 04/24/23 [facility] evaluation + Plan note Future Appointments Appointment Date:08/03/2023 03:00:00 PM Scheduled Provider: Location:[facility] Appointment Type:ACC POC Established Patient Future Scheduled Tests Radiology* CT Shoulder w/o Contrast Left 04/24/23 [facility] evaluation + Plan note Future Appointments Appointment Date:10/05/2023 02:45:00 PM Scheduled Provider: Location:[facility] Appointment Type:ACC POC Established Patient Appointment Date:10/08/2023 03:30:00 PM Scheduled Provider:[place] [id number] Location:[facility] Appointment Type:PT Outpatient Evaluation Appointment Date:11/06/2023 02:00:00 PM Scheduled Provider:ZOHRA PEÑALOZA MD Location:[facility] Appointment Type: OV Controlled Medication Diagnostic Tests Pending * Culture Wound Aerobic with Gram Stain 09/28/23 Future Scheduled Tests Radiology* CT Shoulder w/o Contrast Left 04/24/23 [facility] evaluation + Plan note Future Appointments Appointment Date:10/05/2023 02:45:00 PM Scheduled Provider: Location:[facility] Appointment Type:ACC POC Established Patient Appointment Date:10/08/2023 03:30:00 PM Scheduled Provider:[place] [id number] Location:[facility] Appointment Type:PT Outpatient Evaluation Appointment Date:11/06/2023 02:00:00 PM Scheduled Provider:ZOHRA PEÑALOZA MD Location:[facility] Appointment Type:PC OV Controlled Medication Future Scheduled Tests Radiology* CT Shoulder w/o Contrast Left 04/24/23 [facility] [employer]vWise + Plan note Future Appointments Appointment Date:10/24/2023 02:00:00 PM Scheduled Provider: Location:[facility] Appointment Type:ACC POC Established Patient Appointment Date:11/06/2023 02:00:00 PM Scheduled Provider:ZOHRA PEÑALOZA MD Location:[facility] Appointment Type:PC OV Controlled Medication Future Scheduled Tests Radiology* CT Shoulder w/o Contrast Left 04/24/23 [facility] [employer] + Plan note Future Appointments Appointment Date:11/27/2023 02:00:00 PM Scheduled Provider: Location:[facility] Appointment Type:ACC POC Established Patient Appointment Date:02/05/2024 02:00:00 PM Scheduled Provider:ZOHRA PEÑALOZA MD Location:[facility] Appointment Type:PC OV Controlled Medication Future Scheduled Tests Radiology* CT Shoulder w/o Contrast Left 04/24/23 [facility] evaluation + Plan note Future Appointments Appointment Date:11/26/2023 02:30:00 PM Scheduled Provider: Location:[facility] Appointment Type:ACC POC Established Patient Appointment Date:11/27/2023 02:00:00 PM Scheduled Provider: Location:[facility] Appointment Type:ACC POC Established Patient Appointment Date:02/05/2024 02:00:00 PM Scheduled Provider:ZOHRA PEÑALOZA MD Location:[facility] Appointment Type:PC OV Controlled Medication Future Scheduled Tests Radiology* CT Shoulder w/o Contrast Left 04/24/23 [facility] Evaluation note* Diagnosis Skin tear of right forearm without complication, initial encounter- Primary [facility] Diagnosis Skin tear of forearm without complication, left, initial encounter- Primary [facility] Narrative No data available for this section [facility] Hospital Discharge instructions No data available for this section [facility] Progress note No data available for this section [facility] Summary Purpose Family History No Family History [...] this section No Family History Records Found Advance Directives No Advanced Directives Records FoundNo Advanced Directives Records FoundNo Advanced Directives Records FoundNo Advanced Directives Records Found Additional Source Comments INFORMATION SOURCE (unrecogn ized section and content) DATE CREATED AUTHOR AUTHOR'S ORGANIZ ATION 10/31/2018 [facility] [place] DATE CREATED AUTHOR AUTHOR'S ORGANIZ ATION 08/04/2022 [facility] DATE CREATED AUTHOR AUTHOR'S ORGANIZ ATION 12/13/2023 [facility] ([place]) Care Team (unrecognized sect ion and content) Costumed Character Entertainer Relationship Specialty Start Date End Date Kay Vogel [address] [employer] [place] [phone] PCP - General 02/05/01 Care Team (unrecognized sect ion and content) Care Team Personnel Name: [employer] Director Vicky PT Position: P3 Scheduling - Engineering Design Manager Advanced Member Role: Other Name: Fam Orozco Engineering Design Manager Karen Position: P3 Scheduling - Engineering Design Manager Advanced Member Role: Other Name: Yari Conley Position: P3 Scheduling - Engineering Design Manager Advanced Member Role: Other Name: Lorin Diaz Position: P3 Scheduling - Engineering Design Manager Advanced Member Role: Other Name: ZOHRA PEÑALOZA MD Position: P4 Physician - Primary Care Med Service: Active Provider Member Role: Primary Care Physician Address: Address: [address] [place] [address] Name: Sonam Andrade [employer] Bookkeeper Position: P3 Scheduling - Engineering Design Manager Advanced Member Role: Other Name: Fam Menjivar Engineering Design Manager Denita Gibson Position: P3 Scheduling - Engineering Design Manager Advanced Member Role: Other Care Team Related Persons Name: MICHAEL COLLAZO Address: Home [id number] [place] [address] Care Team Personnel Name: Holly Monzon Clerk Vicky PT Position: P3 Scheduling - Engineering Design Manager Advanced Member Role: Other Name: Fam Orozco Engineering Design Managergardenia Jones Position: P3 Scheduling - Engineering Design Manager Advanced Member Role: Other Name: Yari Conley Position: P3 Scheduling - Engineering Design Manager Advanced Member Role: Other Name: Lorin Diaz Position: P3 Scheduling - Engineering Design Manager Advanced Member Role: Other Name: ZOHRA PEÑALOZA MD Position: P4 Physician - Primary Care Med Service: Active Provider Member Role: Primary Care Physician Address: Address: [address] [place] [address] Name: Sonam Andrade Quick[employer] Bookkeeper Position: P3 Scheduling - Engineering Design Manager Advanced Member Role: Other Name: [facility] Engineering Design Manager Denita L Position: P3 Scheduling - Engineering Design Manager Advanced Member Role: Other Care Team Related Persons Name: MICHAEL COLLAZO Address: Home [id number] Care Team Personnel Name: Na Funeral Home Director Vicky PT Position: P3 Scheduling - Engineering Design Manager Advanced Member Role: Other Name: Fam Orozco Engineering Design Manager Karen Position: P3 Scheduling - Engineering Design Manager Advanced Member Role: Other Name: Yari Conley Position: P3 Scheduling - Engineering Design Manager Advanced Member Role: Other Name: Lorin Diaz Position: P3 Scheduling - Engineering Design Manager Advanced Member Role: Other Name: ZOHRA PEÑALOZA MD Position: P4 Physician - Primary Care Member Role: Primary Care Physician Address: Address: [address] [place] [address] Name: Sonam Andrade [employer] Bookkeeper Position: P3 Scheduling - Engineering Design Manager Advanced Member Role: Other Name: [facility] Engineering Design Manager Denita L Position: P3 Scheduling - Engineering Design Manager Advanced Member Role: Other Care Team Related Persons Name: MICHAEL COLLAZO Address: Home [id number] [place] [address] Care Team Personnel Name: Na [employer] Home Director Vicky PT Position: P3 Scheduling - Engineering Design Manager Advanced Member Role: Other Name: Yari Conley Position: P3 Scheduling - Engineering Design Manager Advanced Member Role: Other Name: Lorin Diaz Position: P3 Scheduling - Engineering Design Manager Advanced Member Role: Other Name: ZOHRA PEÑALOZA MD Position: P4 Physician - Primary Care Member Role: Primary Care Physician Address: Address: [address] [place] [address] Name: Sonam Andrade Clerk Position: P3 Scheduling - Engineering Design Manager Advanced Member Role: Other Name: [facility] Engineering Design Manager Denita L Position: P3 Scheduling - Engineering Design Manager Advanced Member Role: Other Care Team Related Persons Name: MICHAEL COLLAZO Address: Home [id number] [place] [address] Care Team Personnel Name: Na [employer] Home Director Vicky PT Position: P3 Scheduling - Engineering Design Manager Advanced Member Role: Other Name: Yari Conley Position: P3 Scheduling - Engineering Design Manager Advanced Member Role: Other Name: Lorin Diaz Position: P3 Scheduling - Engineering Design Manager Advanced Member Role: Other Name: ZOHRA PEÑALOZA MD Position: P4 Physician - Primary Care Member Role: Primary Care Physician Address: Address: [address] Name: Sonam Andrade [employer] Bookkeeper Position: P3 Scheduling - Engineering Design Manager Advanced Member Role: Other Name: [facility] Engineering Design Manager Denita L Position: P3 Scheduling - Engineering Design Manager Advanced Member Role: Other Name: ROSENDO OLIVARES DO Position: ED Physician Member Role: Attending Physician Address: Address: [address] [place] [id number] Care Team Related Persons Name: MICHAEL COLLAZO Address: Home [address] [place], [place] [id number] Care Team Personnel Name: Holly Monzon Clergardenia Perry PT Position: P3 Scheduling - Engineering Design Manager Advanced Member Role: Other Name: Yari Conley Position: P3 Scheduling - Engineering Design Manager Advanced Member Role: Other Name: Lorin Diaz Position: P3 Scheduling - Engineering Design Manager Advanced Member Role: Other Name: ZOHRA PEÑALOZA MD Position: P4 Physician - Primary Care Member Role: Primary Care Physician Address: Address: [address] [place] [address] Name: Sonam Andrade Clerk Position: P3 Scheduling - Engineering Design Manager Advanced Member Role: Other Name: [facility] Engineering Design Manager Denita L Position: P3 Scheduling - Engineering Design Manager Advanced Member Role: Other Care Team Related Persons Name: MICHAEL COLLAZO Address: Home [id number] [place] [phone] [place] Source Comments (unrecognize d section and content) In the event this informatio n is protected by the Federal Confidentiality of Alcohol and Drug Abuse Patient Records regulations: The Federal rules restrict any use of the information to criminally investigate or prosecute any alcohol or drug abuse patient.[facility] the event this information is protected by the Federal Confidentiality of Alcohol and Drug Abuse Patient Records regulations: The Federal rules restrict any use of the information to criminally investigate or prosecute any alcohol or drug abuse patient.[facility] Reason for Visit (unrecogniz ed section and [...] BE BASED ON THE PRIMARY CLINICAL RECORDS. [facility]. provides no warranty or guarantee of the accuracy or completeness of information in this document.
[2023-12-17 07:19] LABS: BNP,B-Type NATRIURETIC PEPTIDE 255.7 pg/mL (0-100)
--- NOTE | 2023-12-17 08:11 | PCM.HP.STD ---
[facility] - General General Date of Admission: 12/17/23 Date of Service: 12/17/23 Chief Complaint: Leg swelling worse for 3 to 4 days, dyspnea on exertion/orthopnea for 1 day prior to admission HPI Kuldeep COLLAZO, is a 83 F with multiple cardiac conditions including chronic HFpEF on Lasix came to ED patient not able to breathe or sleep even with 3-4 pillows yesterday. Prior to that, she had low sodium to about 126 and she was told to hold the spironolactone and furosemide for 1 week but she had to start it 4 days ago as her leg swelling was getting worse. Leg swelling did not improve much. Patient also has wound on the right leg near calf region and foot area. Denies chest pain pressure or tightness. Patient also has history of chronic A-fib and had ablation twice. She has a pacemaker which has been changed 4 times. She also complains of mild cough with sputum production and completed 4 days of Zithromax as an outpatient from 12/12 to 12/16. Denies fever or chills. Mild nasal congestion URI symptoms. Chest x-ray did not reviewed and does not show acute abnormality of consolation/infiltrate or pulmonary edema. Twelve-lead EKG shows a paced rhythm with rate of 60 pulmonate. QRS 156 milliseconds, prolonged from pacemaker, LAD and LBBB pattern. Previous EKG of 07 December 2023 shows ventricular paced rhythm with occasional PVC and A-fib. 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 Longstanding persistent atrial fibrillation Nonrheumatic mitral valve regurgitation Osteoarthrosis Pericardial effusion Pneumonia Pulmonary hypertension Tear of biceps muscle Home Medications cetirizine 10 mg capsule (Zyrtec) 10 mg PO DAILY PRN allergy symptoms 06/08/20 [History Last Taken 12/15/23] docusate sodium 100 mg capsule (Stool Softener) 100 mg PO BID constipation 06/03/21 [History Last Taken 12/16/23] albuterol sulfate 90 mcg/actuation aerosol inhaler 2 puff inhalation Q6H PRN shortness of breath or wheezing 03/22/22 [History Last Taken Unknown] warfarin 1 mg tablet 1 mg PO .COMPLEX anticoagulation 03/22/22 [History Last Taken 12/16/23] calcitriol 0.25 mcg capsule 0.25 mcg PO DAILY see mar 06/05/22 [History Last Taken 12/16/23] Lactobacillus rhamnosus GG 5 billion cell chewable tablet ([employer]otics) 1 tab PO DAILY PRN probiotic 02/20/23 [History Last Taken Unknown] carvedilol 6.25 mg tablet 6.25 mg PO BID htn #180 tabs 02/20/23 [Rx Last Taken 12/16/23] hydrocodone-acetaminophen 5-325mg 5mg-325mg 1 tab PO 4X/DAY PRN PRN Pain 02/20/23 [History Last Taken Unknown] kmdsnlkz-xqso-arhm 8 mg-folic 400 mcg-K 50 mcg-lutein 300 mcg tablet 1 tab PO DAILY health maintenance 02/20/23 [History Last Taken 12/16/23] spironolactone 50 mg tablet 50 mg PO DAILY #90 tabs 07/04/23 [Rx Last Taken 12/16/23] amlodipine 5 mg tablet 5 mg PO BID hypertension #180 tabs 07/05/23 [Rx Last Taken 12/16/23] furosemide 40 mg tablet 40 mg PO DAILY edema, shortness of breath #90 tabs 07/05/23 [Rx Last Taken 12/16/23] ondansetron 4 mg disintegrating tablet 4 mg PO Q6H PRN PRN Nausea #10 tabs 08/17/23 [Rx Last Taken 12/16/23] polyethylene glycol 3350 17 gram/dose oral powder (Miralax) 17 g PO DAILY constipation 12/10/23 [History Last Taken Unknown] azithromycin 500 mg tablet 500 mg PO DAILY cough 12/17/23 [History Last Taken 12/16/23] nitrofurantoin macrocrystal 100 mg capsule 100 mg PO Q12H uti 12/17/23 [History Last Taken 12/16/23] Allergy/AdvReac Type Severity Reaction Status Date / Time Iodinated Contrast Media Allergy Rash Verified 12/17/23 05:36 [Iodinated Contrast- Oral and IV Dye] iodine Allergy Rash Verified 12/17/23 05:36 Penicillins [PCN] Allergy Rash Verified 12/17/23 05:36 ciprofloxacin [From Cipro] AdvReac Intermediate dizziness Verified 12/17/23 05:36 clindamycin AdvReac Intermediate nausea Verified 12/17/23 05:36 levofloxacin [From Levaquin] AdvReac Intermediate abdominal Verified 12/17/23 05:36 pain, nausea simvastatin AdvReac Intermediate Myalgias Verified 12/17/23 05:36 Family History Father , Age 82 CAD (coronary artery disease) Myocardial infarction CVA (cerebral vascular accident) Hypertension Mother , Age 94 Hypertension CVA (cerebral vascular accident) Sister Cancer Brother , Age 13 months from congenital heart defect Congenital heart defect Surgical History Cardiac pacemaker in situ H/O colectomy History of appendectomy History of bunionectomy History of cardioversion (07/12/05) History of hysterectomy (1990) History of knee replacement (05/2018) History of left heart catheterization (09/09/03) History of radiofrequency ablation procedure for cardiac arrhythmia History of tilt table evaluation (06/02/04) Hx of atrioventricular node ablation Social History household members: spouse Smoking Status: Never smoker alcohol intake: never substance use type: does not use caffeine: No ROS ROS Narrative Constitutional: Reports fatigue and weakness. No fever. HEENT: Mild URI symptoms. Reports systems reviewed and no addt'l complaints, except as documented Respiratory/Chest: Dyspnea on exertion and orthopnea. CVS: History of cardiac ablation for A-fib. Pacemaker. Cardiac murmur. No chest pressure. Gastrointestinal: Denies coffee ground emesis, hematemesis or vomiting Genitourinary: Denies burning urination or new urinary tract symptoms Musculoskeletal: Leg swelling. Denies acute joint pain or limited range of motion. No acute injury Neurologic: Denies seizure-like symptoms. skin: Wound on the right lower leg. Endocrinology: Reports systems reviewed and no addt'l complaints, except as documented Hematologic/Lymphatic: Reports systems reviewed and no addt'l complaints, except as documented Rest 14 ROS are negative except as mentioned in HPI Vital Signs Vital Signs Vital Signs: 12/17/23 05:35 12/17/23 05:35 12/17/23 07:54 Temperature 97.4 F L Temperature Source Temporal Pulse Rate 66 64 Respiratory Rate 18 20 H Respiratory Effort Normal Non-Labored Respiratory Pattern Normal Blood Pressure 121/96 H 158/78 H Blood Pressure Mean 104 104 Pulse Ox 94 94 Oxygen Delivery Method Room Air Room Air Weight Weight: 133 lb 13.129 oz Body Mass Index (BMI) 24.5 Physical Exam Narrative General: Alert, Oriented x3, Cooperative HEENT: Atraumatic, PERRLA, EOMI, Normocephalic Oral: No Gingival or Mucosal Lesions/ Ulcerations Neck: Supple, No JVD, Negative Carotid Bruits Chest wall/Lungs: Air entry diminished in bilateral lung bases. No crepitation/rhonchi Cardiovascular: Paced rhythm, r Normal S1, Normal S2, loud 4/6, early diastolic murmur over right second ICS with no carotid radiation. Apical systolic murmur present. Abdomen: Bowel Sounds Present, Soft, Non Tender, Non-Distended : No dysuria. No renal angle tenderness. No suprapubic tenderness. Extremities: Bilateral legedema, Capillary Refill Less than 3 Seconds Skin: Chronic dry, open wound over right leg and foot region. No significant discharge. Musculoskeletal: No Tenderness to Palpation of Joints or Extremities. ROM restricted. Neurological: Cranial nerves II-XII grossly intact, DTR 2+/4. No acute focal neurological deficit. Psych/Mental Status: Flat affect. Results Lab / Micro Data 12/17/23 06:09 12/17/23 06:09 Labs: Laboratory Results - last 24 hr 12/17/23 06:09: WBC 9.8, RBC 3.93 L, Hgb 11.3 L, Hct 34.6 L, MCV 88.0, MCH 28.8, MCHC 32.7, RDW Std Deviation 52.4 H, RDW Coeff of Donn 16.5 H, Plt Count 293, MPV 8.5, Immature Gran % (Auto) 0.200, Neut % (Auto) 55.1, Lymph % (Auto) 34.5, [place] % (Auto) 7.6, Eos % (Auto) 2.1, Baso % (Auto) 0.5, Absolute Neuts (auto) 5.4, Absolute Lymphs (auto) 3.39, Nucleated RBC % 0, Sodium 126 L, Potassium 4.8, Chloride 95 L, Carbon Dioxide 24.0, Anion Gap 7, BUN 25 H, Creatinine 0.83, Estim Creat Clear Calc 44.06, Est GFR (MDRD) Af Amer 84, Est GFR (MDRD) Non-Af 70, BUN/Creatinine Ratio 30.1 H, Glucose 117 H, Calcium 9.5, Troponin I High Sens 12, B-Natriuretic Peptide 255.7 H 12/17/23 06:34: Urine Color Yellow, Urine Clarity Clear, Urine pH 6.5, Ur Specific [employer] 1.010, Urine Protein 30 H, Urine Glucose (UA) Normal, Urine Ketones Negative, Urine Occult Blood 10 H, Urine Nitrite Negative, Urine Bilirubin Negative, Urine Urobilinogen Normal, Ur Leukocyte Esterase Negative Imaging Radiology Impression Chest X-Ray 12/17/23 06:26 IMPRESSION: No acute findings in the chest. Electronically Signed: Davey Dominguez MD at 6:47 EST , Assessment & Plan Assessment/Plan (1) Hyponatremia: (2) Acute on chronic heart failure with preserved ejection fraction (HFpEF): PLAN: Plan This is a 83-year-old female being admitted for acute on chronic shortness of breath, orthopnea and bilateral leg swelling consistent with acute on chronic HFpEF. 1. Acute on chronic HFpEF: Chest x-ray initially read ingestional also acute finding but BNP elevated and patient has dyspnea on exertion and orthopnea consistent with heart failure exacerbation. 2D echo from June 2023 reviewed shows EF 70% with mild MR and mild AI. Furosemide 40 mg IV daily. Heart failure core measures including intake and output, fluid restriction less than 1500 mL, daily weight monitoring, kidney and electrolytes monitoring. Will treat URI with a Mucinex DM and loratadine. She completed antibiotic for bronchitis and chest x-ray does not show acute finding/pneumonia. Does not have chest pain and to serial troponins are negative. 2. Subacute/chronic hyponatremia due to furosemide/hypotonic, hypervolemic hyponatremia: Discussed with the certified surgical technologist and same is consulted. Serum sodium is 126. Urine studies including urine electrolytes ordered. Restaurant Line Server will discuss forms for tolvaptan. No indication for IV fluid. 3. Mild CAD, chronic A-fib status post ablation, AV block complete status post pacemaker, MR, aortic incompetence and pulmonary hypertension: Patient was seen in cardiology clinic on 12/10/2023. She has mild coronary artery disease with LAD 20% and did not require PCI, EF 60% in 08/2003. On carvedilol and warfarin resumed. 4. Chronic wound in the right leg status post debridement on 08/15/2023. Patient follows with Dr. Wild Gallego, materials development engineer last seen in wound center on 08/15/2023. Wound nurse consulted. Wound is dry. 5. Other comorbidities include essential hypertension, dyslipidemia, degenerative osteoarthritis: Blood pressure in ED is controlled heart rate controlled. Home medication reconciliation done. Living will/advanced directive/end of life care: Patient does have living will or advanced directive. Her power of chief revenue officer for health is her Mr. Gabriel Collazo. After discussion of benefits/risks procedures involved with full code, DNR CC arrest and DNR CC, the patient opted for full code. Patient does want artificial life support including intubation, tube feed, ventilator and/chest compression, central venous catheter, vasopressor and DC shock if needed Total time spent in [id number] encounter in discussion of advanced directive 17 minutes. Laboratory Results 12/17/23 06:09: WBC 9.8, RBC 3.93 L, Hgb 11.3 L, Hct 34.6 L, MCV 88.0, MCH 28.8, MCHC 32.7, RDW Std Deviation 52.4 H, RDW Coeff of Donn 16.5 H, Plt Count 293, MPV 8.5, Immature Gran % (Auto) 0.200, Neut % (Auto) 55.1, Lymph % (Auto) 34.5, [place] % (Auto) 7.6, Eos % (Auto) 2.1, Baso % (Auto) 0.5, Absolute Neuts (auto) 5.4, Absolute Lymphs (auto) 3.39, Nucleated RBC % 0, PT 26.5 H, INR 2.4, Sodium 126 L, Potassium 4.8, Chloride 95 L, Carbon Dioxide 24.0, Anion Gap 7, BUN 25 H, Creatinine 0.83, Estim Creat Clear Calc 44.06, Est GFR (MDRD) Af Amer 84, Est GFR (MDRD) Non-Af 70, BUN/Creatinine Ratio 30.1 H, Glucose 117 H, Calcium 9.5, Phosphorus 2.8, Magnesium 2.4, Troponin I High Sens 12, B-Natriuretic Peptide 255.7 H 12/17/23 06:34: Urine Color Yellow, Urine Clarity Clear, Urine pH 6.5, Ur Specific [employer] 1.010, Urine Protein 30 H, Urine Glucose (UA) Normal, Urine Ketones Negative, Urine Occult Blood 10 H, Urine Nitrite Negative, Urine Bilirubin Negative, Urine Urobilinogen Normal, Ur Leukocyte Esterase Negative 12/17/23 09:27: Troponin I High Sens 14 Clinical Impression(s) from Imaging Studies Chest X-Ray 12/17/23 06:26 IMPRESSION: No acute findings in the chest. 2D echo June 2023 Interpretation Summary The estimated ejection fraction is 70 %. Unable to assess diastolic dysfunction. The left atrium is severely enlarged. Mild (1+) mitral valve insufficiency. Mild (1+) aortic valve insufficiency. Charges/Coding Visit Charges Inpatient E&M: 69233 Init Hosp L3 Procedures Hospitalists Procedures: 24977 Advncd Care Plan 30 Min
[2023-12-17 08:55] LABS: Magnesium 2.4 mg/dL (1.6-2.6); Phosphorus 2.8 mg/dL (2.5-4.9)
[2023-12-17 09:58] LABS: Troponin-I HS 14 pg/mL (3.0-54.0)
[2023-12-17 10:07] LABS: International Normalized Ratio 2.4; Prothrombin Time (Protime)PT. 26.5 SECONDS (11.7-14.9)
[2023-12-17] MEDS: Carvedilol 6.25 MG Tablet PO ×2 (11:42→22:36)
[2023-12-17] MEDS: Polyethylene Glycol 3350 17 GM PACKET PO (11:42)
[2023-12-17] MEDS: Spironolactone 50 MG Tablet PO (11:42)
[2023-12-17] MEDS: Calcitriol 0.25 MCG Capsule PO (11:43)
--- NOTE | 2023-12-17 11:47 | WOUNDNOTE ---
wound photo: right leg
[2023-12-17] MEDS: Furosemide 40 MG/4 ML Vial IV (11:51)
[2023-12-17] MEDS: Loratadine 10 MG Tablet PO (11:52)
[2023-12-17] MEDS: guaiFENesin/D-Methorphan TAB.SR.12H 2 TABLET PO ×2 (11:52→22:36)
--- NOTE | 2023-12-17 15:54 | PCM.CONS.R ---
Assessment & Plan Assessment/Plan (1) Hyponatremia: PLAN: sodium of 126. Hypervolemic hyponatremia. echo reviewed from before. BNP elevated. continue lasix. will give a dose of samsca. HPI Consult Data Date of Consult: 12/17/23 HPI Narrative Reason for Consultation: Hyponatremia HPI Narrative: JEANINE JARAMILLO, is a 83 F who presents to the hospital with worsening shortness of breath and extremity edema. Nephrology on consultation for hyponatremia. She was recently admitted at [facility] with similar complaints. She was told her sodium was low, improved by the time of discharge. She was supposed to be on Lasix and spironolactone. Diuretics were held due to hyponatremia. With swelling, she was asked to start back Lasix. She had worsening lower extremity edema. 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 Longstanding persistent atrial fibrillation Nonrheumatic mitral valve regurgitation Osteoarthrosis Pericardial effusion Pneumonia Pulmonary hypertension Tear of biceps muscle Home Medications cetirizine 10 mg capsule (Zyrtec) 10 mg PO DAILY PRN allergy symptoms 06/08/20 [History Last Taken 12/15/23] docusate sodium 100 mg capsule (Stool Softener) 100 mg PO BID constipation 06/03/21 [History Last Taken 12/16/23] albuterol sulfate 90 mcg/actuation aerosol inhaler 2 puff inhalation Q6H PRN shortness of breath or wheezing 03/22/22 [History Last Taken Unknown] warfarin 1 mg tablet 1 mg PO .COMPLEX anticoagulation 03/22/22 [History Last Taken 12/16/23] calcitriol 0.25 mcg capsule 0.25 mcg PO DAILY see mar 06/05/22 [History Last Taken 12/16/23] Lactobacillus rhamnosus GG 5 billion cell chewable tablet ([employer] Probiotics) 1 tab PO DAILY PRN probiotic 02/20/23 [History Last Taken Unknown] carvedilol 6.25 mg tablet 6.25 mg PO BID htn #180 tabs 02/20/23 [Rx Last Taken 12/16/23] hydrocodone-acetaminophen 5-325mg 5mg-325mg 1 tab PO 4X/DAY PRN PRN Pain 02/20/23 [History Last Taken Unknown] qnlljxjf-ahwd-gaqv 8 mg-folic 400 mcg-K 50 mcg-lutein 300 mcg tablet 1 tab PO DAILY health maintenance 02/20/23 [History Last Taken 12/16/23] spironolactone 50 mg tablet 50 mg PO DAILY #90 tabs 07/04/23 [Rx Last Taken 12/16/23] amlodipine 5 mg tablet 5 mg PO BID hypertension #180 tabs 07/05/23 [Rx Last Taken 12/16/23] furosemide 40 mg tablet 40 mg PO DAILY edema, shortness of breath #90 tabs 07/05/23 [Rx Last Taken 12/16/23] ondansetron 4 mg disintegrating tablet 4 mg PO Q6H PRN PRN Nausea #10 tabs 08/17/23 [Rx Last Taken 12/16/23] polyethylene glycol 3350 17 gram/dose oral powder (Miralax) 17 g PO DAILY constipation 12/10/23 [History Last Taken Unknown] azithromycin 500 mg tablet 500 mg PO DAILY cough 12/17/23 [History Last Taken 12/16/23] nitrofurantoin macrocrystal 100 mg capsule 100 mg PO Q12H uti 12/17/23 [History Last Taken 12/16/23] Allergy/AdvReac Type Severity Reaction Status Date / Time Iodinated Contrast Media Allergy Rash Verified 12/17/23 05:36 [Iodinated Contrast- Oral and IV Dye] iodine Allergy Rash Verified 12/17/23 05:36 Penicillins [PCN] Allergy Rash Verified 12/17/23 05:36 ciprofloxacin [From Cipro] AdvReac Intermediate dizziness Verified 12/17/23 05:36 clindamycin AdvReac Intermediate nausea Verified 12/17/23 05:36 levofloxacin [From Levaquin] AdvReac Intermediate abdominal Verified 12/17/23 05:36 pain, nausea simvastatin AdvReac Intermediate Myalgias Verified 12/17/23 05:36 Family History Father , Age 82 CAD (coronary artery disease) Myocardial infarction CVA (cerebral vascular accident) Hypertension Mother , Age 94 Hypertension CVA (cerebral vascular accident) Sister Cancer Brother , Age 13 months from congenital heart defect Congenital heart defect Surgical History Cardiac pacemaker in situ H/O colectomy History of appendectomy History of bunionectomy History of cardioversion (07/12/05) History of hysterectomy (1990) History of knee replacement (05/2018) History of left heart catheterization (09/09/03) History of radiofrequency ablation procedure for cardiac arrhythmia History of tilt table evaluation (06/02/04) Hx of atrioventricular node ablation Social History household members: spouse Smoking Status: Never smoker alcohol intake: never substance use type: does not use caffeine: No ROS ROS Narrative Negative except above Physical Exam Narrative Alert awake oriented x 3 no obvious distress no pallor no icterus no JVD s1s2 no murmurs lungs clear abdomen soft no organomegaly no edema no cyanosis Lab / Micro Data 12/17/23 06:09 12/17/23 06:09 Labs: Laboratory Results - last 24 hr 12/17/23 06:09: WBC 9.8, RBC 3.93 L, Hgb 11.3 L, Hct 34.6 L, MCV 88.0, MCH 28.8, MCHC 32.7, RDW Std Deviation 52.4 H, RDW Coeff of Donn 16.5 H, Plt Count 293, MPV 8.5, Immature Gran % (Auto) 0.200, Neut % (Auto) 55.1, Lymph % (Auto) 34.5, [place] % (Auto) 7.6, Eos % (Auto) 2.1, Baso % (Auto) 0.5, Absolute Neuts (auto) 5.4, Absolute Lymphs (auto) 3.39, Nucleated RBC % 0, PT 26.5 H, INR 2.4, Sodium 126 L, Potassium 4.8, Chloride 95 L, Carbon Dioxide 24.0, Anion Gap 7, BUN 25 H, Creatinine 0.83, Estim Creat Clear Calc 44.06, Est GFR (MDRD) Af Amer 84, Est GFR (MDRD) Non-Af 70, BUN/Creatinine Ratio 30.1 H, Glucose 117 H, Calcium 9.5, Phosphorus 2.8, Magnesium 2.4, Troponin I High Sens 12, B-Natriuretic Peptide 255.7 H 12/17/23 06:34: Urine Color Yellow, Urine Clarity Clear, Urine pH 6.5, Ur Specific [place] 1.010, Urine Protein 30 H, Urine Glucose (UA) Normal, Urine Ketones Negative, Urine Occult Blood 10 H, Urine Nitrite Negative, Urine Bilirubin Negative, Urine Urobilinogen Normal, Ur Leukocyte Esterase Negative 12/17/23 09:27: Troponin I High Sens 14 Imaging Radiology Impression Chest X-Ray 12/17/23 06:26 IMPRESSION: No acute findings in the chest. Electronically Signed: Davey Dominguez MD at 6:47 EST ,
--- NOTE | 2023-12-17 17:17 | CHAPLAIN ---
Type of Pastoral Visit ___ Initial Visit ___ Follow-up Visit ___ On-call Visit ___ General Patient Visit ___ Spiritual Assessment ___ Family Conference ___ Bereavement ___ Rapid Response ___ Code Blue ___ Other (describe below) Pastoral Care Referral From ___ Patient ___ Family ___ Nurse ___ Physician ___ Refinery Operator Vapor Recovery Unit ___ Department Helper ___ Other (describe below) Sacrament/Intervention ___ Active listening ___ Anointing ___ Rastafarian ___ Bereavement ___ Communion ___ Lily exploration ___ ___ Life review ___ Prayer ___ Reconciliation ___ Sacrament of Sick ___ Supportive presence ___ Wedding ___ Other (describe below) Pastoral Comments door is closed, curtains are pulled shut, and room is dark; gently announced presence and offer to come in but to no response
[2023-12-17] MEDS: TOLVAPTAN 15 MG TABLET PO (17:59)
[2023-12-17] MEDS: Nitrofurantoin Macrocrystals 100 MG Capsule PO (22:35)
[2023-12-17] MEDS: Acetaminophen 325 MG Tablet 650 MG PO (22:37)
[2023-12-17] MEDS: oxyCODONE 5 MG Tablet PO (22:37)
[2023-12-18] VITALS (8 sets, daily range): BP systolic 106–145; BP diastolic 67–76; PULSE 60–78; RESP 16; TEMP 36.4–36.8; O2SAT 94–99; BMI 22.8
[2023-12-18 07:08] LABS: Absolute Lymphocyte Count 3.18 X10^3/uL (0.83-4.51); Basophil# 0.05 X10^3/uL; Basophil% 0.6 % (0-1); Eosinophil# 0.21 X10^3/uL; Eosinophils% 2.6 % (0-5); Hematocrit 33.9 % (37-47); Hemoglobin 11.4 g/dL (12.0-15.0); Lymphocyte # 3.18 X10^3/ul (0.83-4.51); Lymphocyte % 38.9 % (19-41); Mean Corp Hgb Conc 33.6 g/dL (32-36); Mean Corpuscular Hgb 29.5 pg (27.0-32.0); Mean Corpuscular Volume 87.8 fL (81-99); Mean Platelet Vol. 8.3 fl (6.2-12.0); Monocyte# 0.72 X10^3/uL; Monocyte% 8.8 % (0-10); NRBC Flagged by Analyzer 0 % (0-5); Platelet Count 270 K/mm3 (150-450); RBC Distribution Width CV 17.1 % (11.6-14.6); RBC Distribution Width SD 53.5 fl (35.1-43.9); Red Blood Count 3.86 M/mm3 (4.2-5.4); White Blood Count 8.2 K/mm3 (4.4-11.0)
[2023-12-18 07:18] LABS: International Normalized Ratio 2.5; Prothrombin Time (Protime)PT. 26.9 SECONDS (11.7-14.9)
[2023-12-18 07:46] LABS: Anion Gap 4 (5-15); BUN 19 mg/dL (7-18); BUN/Creat Ratio 21.8 RATIO (10-20); Calcium,Total 9.2 mg/dL (8.5-10.1); Chloride 102 mmol/L (98-107); Creatinine, Serum 0.87 mg/dL (0.55-1.02); EST Glomerular Filtration Rate 66 mL/min (>60); Est Glom Filt Rate - Afr Amer 80 mL/min (>60); Estimated Creatinine Clearance 38.75 ml/min; Glucose 94 mg/dL (74-106); Potassium 4.4 mmol/L (3.5-5.1); Sodium Level 134 mmol/L (136-145); Thyroid Stim Hormone (TSH) 0.37 uIU/mL (0.358-3.74)
--- NOTE | 2023-12-18 08:12 | PCM.PN.HOSP ---
Reason for Visit Reason for Visit: Diagnoses Hypo-osmolality and hyponatremia (12/17/23) Acute on chronic diastolic (congestive) heart failure (12/17/23) Objective Data Objective Data Vital Signs: Vital Signs Temp Pulse Resp BP Pulse Ox O2 Del Method 97.9 F 60 16 133/76 H 94 Room Air 12/18/23 07:35 12/18/23 07:35 12/18/23 07:35 12/18/23 07:35 12/18/23 07:35 12/18/23 08:04 Oxygen Delivery Method Room Air Weight: 125 lb 3.561 oz Body Mass Index (BMI) 22.8 Intake & Output: Intake and Output for Last 24 Hours 12/16/23 12/17/23 12/18/23 23:59 23:59 23:59 Intake Total 100 / 100 Output Total 0 / 0 Balance 100 / 100 Lab / Micro Data 12/18/23 06:50 12/18/23 06:50 Labs: Laboratory Results - last 24 hr 12/17/23 06:09: PT 26.5 H, INR 2.4, Phosphorus 2.8, Magnesium 2.4 12/17/23 09:27: Troponin I High Sens 14 12/18/23 06:50: WBC 8.2, RBC 3.86 L, Hgb 11.4 L, Hct 33.9 L, MCV 87.8, MCH 29.5, MCHC 33.6, RDW Std Deviation 53.5 H, RDW Coeff of Donn 17.1 H, Plt Count 270, MPV 8.3, Immature Gran % (Auto) 0.100, Neut % (Auto) 49.0, Lymph % (Auto) 38.9, [place] % (Auto) 8.8, Eos % (Auto) 2.6, Baso % (Auto) 0.6, Absolute Neuts (auto) 4.0, Absolute Lymphs (auto) 3.18, Nucleated RBC % 0, PT 26.9 H, INR 2.5, Sodium 134 L, Potassium 4.4, Chloride 102, Carbon Dioxide 28.0, Anion Gap 4 L, BUN 19 H, Creatinine 0.87, Estim Creat Clear Calc 38.75, Est GFR (MDRD) Af Amer 80, Est GFR (MDRD) Non-Af 66, BUN/Creatinine Ratio 21.8 H, Glucose 94, Calcium 9.2, TSH 0.37 Physical Exam Narrative Seen and examined. Patient leg swelling is better. Sodium also improved. No chest pain. General: Alert, Oriented x3, Cooperative HEENT: Atraumatic, PERRLA, EOMI, Normocephalic Oral: Oral mucosa moist. No Gingival or Mucosal Lesions/ Ulcerations Neck: Supple, No JVD, Negative Carotid Bruits Chest wall/Lungs: Air entry diminished in bilateral lung bases. No crepitation/rhonchi Cardiovascular: Paced rhythm, r Normal S1, Normal S2, loud 4/6, early diastolic murmur over right second ICS with no carotid radiation. Apical systolic murmur present. Abdomen: Bowel Sounds Present, Soft, Non Tender, Non-Distended : No dysuria. No renal angle tenderness. No suprapubic tenderness. Extremities: Bilateral legedema, Capillary Refill Less than 3 Seconds Skin: Chronic dry, open wound over right leg and foot region. No significant discharge. Musculoskeletal: No Tenderness to Palpation of Joints or Extremities. ROM restricted. Neurological: Cranial nerves II-XII grossly intact, DTR 2+/4. No acute focal neurological deficit. Psych/Mental Status: Flat affect. Assessment & Plan Assessment/Plan (1) Hyponatremia: (2) Acute on chronic heart failure with preserved ejection fraction (HFpEF): PLAN: Plan This is a 83-year-old female being admitted for acute on chronic shortness of breath, orthopnea and bilateral leg swelling consistent with acute on chronic HFpEF. 1. Acute on chronic HFpEF: Chest x-ray individually read which shows no acute finding like pulmonary edema but BNP elevated and patient has dyspnea on exertion and orthopnea consistent with heart failure exacerbation. 2D echo from June 2023 reviewed shows EF 70% with mild MR and mild AI. Furosemide 40 mg IV daily. Heart failure core measures including intake and output, fluid restriction less than 1500 mL, daily weight monitoring, kidney and electrolytes monitoring. Conservative management of URI with a Mucinex DM and loratadine. She completed antibiotic for bronchitis and chest x-ray does not show acute finding/pneumonia. Does not have chest pain and to serial troponins are negative. 2. Subacute/chronic hyponatremia due to furosemide/hypotonic, hypervolemic hyponatremia: Discussed with the first assistant manager and same is consulted. Serum sodium is 126. Urine studies including urine electrolytes ordered. Tolvaptan 15 mg, 1 dose was given. No indication for IV fluid. 12/18: The first assistant manager discussed with the pharmacist and patient was given the dose of tolvaptan.Serum sodium increased to 134. Continue fluid restriction. 3. Mild CAD, chronic A-fib status post ablation, AV block complete status post pacemaker, MR, aortic incompetence and pulmonary hypertension: Patient was seen in cardiology clinic on 12/10/2023. She has mild coronary artery disease with LAD 20% and did not require PCI, EF 60% in 08/2003. On carvedilol and warfarin resumed. 4. Chronic wound in the right leg status post debridement on 08/15/2023. Patient follows with Dr. Wild Gallego, hygiene coordinator last seen in wound center on 08/15/2023. Wound nurse consulted. Wound is dry. 12/18 patient was evaluated by wound nurse. 5. Other comorbidities include essential hypertension, dyslipidemia, degenerative osteoarthritis: Blood pressure in ED is controlled heart rate controlled. Home medication reconciliation done. Living will/advanced directive/end of life care: Patient does have living will or advanced directive. Her power of can top setter for health is her Mr. Gabriel Collazo. After discussion of benefits/risks procedures involved with full code, DNR CC arrest and DNR CC, the patient opted for full code. Patient does want artificial life support including intubation, tube feed, ventilator and/chest compression, central venous catheter, vasopressor and DC shock if needed Total time spent in [id number] encounter in discussion of advanced directive 17 minutes. Laboratory Results 12/17/23 06:09: WBC 9.8, RBC 3.93 L, Hgb 11.3 L, Hct 34.6 L, MCV 88.0, MCH 28.8, MCHC 32.7, RDW Std Deviation 52.4 H, RDW Coeff of Donn 16.5 H, Plt Count 293, MPV 8.5, Immature Gran % (Auto) 0.200, Neut % (Auto) 55.1, Lymph % (Auto) 34.5, [place] % (Auto) 7.6, Eos % (Auto) 2.1, Baso % (Auto) 0.5, Absolute Neuts (auto) 5.4, Absolute Lymphs (auto) 3.39, Nucleated RBC % 0, PT 26.5 H, INR 2.4, Sodium 126 L, Potassium 4.8, Chloride 95 L, Carbon Dioxide 24.0, Anion Gap 7, BUN 25 H, Creatinine 0.83, Estim Creat Clear Calc 44.06, Est GFR (MDRD) Af Amer 84, Est GFR (MDRD) Non-Af 70, BUN/Creatinine Ratio 30.1 H, Glucose 117 H, Calcium 9.5, Phosphorus 2.8, Magnesium 2.4, Troponin I High Sens 12, B-Natriuretic Peptide 255.7 H 12/17/23 06:34: Urine Color Yellow, Urine Clarity Clear, Urine pH 6.5, Ur Specific [place] 1.010, Urine Protein 30 H, Urine Glucose (UA) Normal, Urine Ketones Negative, Urine Occult Blood 10 H, Urine Nitrite Negative, Urine Bilirubin Negative, Urine Urobilinogen Normal, Ur Leukocyte Esterase Negative 12/17/23 09:27: Troponin I High Sens 14 Clinical Impression(s) from Imaging Studies Chest X-Ray 12/17/23 06:26 IMPRESSION: No acute findings in the chest. 2D echo June 2023 Interpretation Summary The estimated ejection fraction is 70 %. Unable to assess diastolic dysfunction. The left atrium is severely enlarged. Mild (1+) mitral valve insufficiency. Mild (1+) aortic valve insufficiency. Charges/Coding Visit Charges Inpatient E&M: 52717 Subs Hosp L2
[2023-12-18] MEDS: Calcitriol 0.25 MCG Capsule PO (08:44)
[2023-12-18] MEDS: Furosemide 40 MG/4 ML Vial IV (08:44)
[2023-12-18] MEDS: Loratadine 10 MG Tablet PO (08:44)
[2023-12-18] MEDS: Polyethylene Glycol 3350 17 GM PACKET PO (08:45)
[2023-12-18] MEDS: guaiFENesin/D-Methorphan TAB.SR.12H 2 TABLET PO ×2 (08:45→22:48)
[2023-12-18] MEDS: Carvedilol 6.25 MG Tablet PO ×2 (08:45→22:47)
[2023-12-18] MEDS: Nitrofurantoin Macrocrystals 100 MG Capsule PO ×2 (08:45→22:48)
[2023-12-18] MEDS: Sodium Chloride 0.65% 1 SPRAY SPRAY.BTL 2 SPRAY NASAL (08:45)
[2023-12-18] MEDS: Spironolactone 50 MG Tablet PO (08:45)
[2023-12-18] MEDS: oxyCODONE 5 MG Tablet PO ×2 (08:49→22:48)
[2023-12-18] MEDS: Acetaminophen 325 MG Tablet 650 MG PO ×2 (08:49→22:48)
--- NOTE | 2023-12-18 11:18 | PCM.PN.REN ---
Subjective Subjective Sitting in chair. No overnight events. Denies any complaints. Denies any headaches, vision changes or feeling thirsty. Objective Data Objective Data Vital Signs: Vital Signs Temp Pulse Resp BP Pulse Ox O2 Del Method 97.7 F L 63 16 128/69 H 97 Room Air 12/18/23 11:00 12/18/23 11:00 12/18/23 11:00 12/18/23 11:00 12/18/23 11:00 12/18/23 11:00 Oxygen Delivery Method Room Air Weight: 56.8 kg Body Mass Index (BMI) 22.8 Intake & Output: Intake and Output for Last 24 Hours 12/16/23 12/17/23 12/18/23 23:59 23:59 23:59 Intake Total 580 / 580 Output Total 0 / 0 Balance 580 / 580 Lab / Micro Data 12/18/23 06:50 12/18/23 06:50 Labs: Laboratory Results - last 24 hr 12/18/23 06:50: WBC 8.2, RBC 3.86 L, Hgb 11.4 L, Hct 33.9 L, MCV 87.8, MCH 29.5, MCHC 33.6, RDW Std Deviation 53.5 H, RDW Coeff of Donn 17.1 H, Plt Count 270, MPV 8.3, Immature Gran % (Auto) 0.100, Neut % (Auto) 49.0, Lymph % (Auto) 38.9, [place] % (Auto) 8.8, Eos % (Auto) 2.6, Baso % (Auto) 0.6, Absolute Neuts (auto) 4.0, Absolute Lymphs (auto) 3.18, Nucleated RBC % 0, PT 26.9 H, INR 2.5, Sodium 134 L, Potassium 4.4, Chloride 102, Carbon Dioxide 28.0, Anion Gap 4 L, BUN 19 H, Creatinine 0.87, Estim Creat Clear Calc 38.75, Est GFR (MDRD) Af Amer 80, Est GFR (MDRD) Non-Af 66, BUN/Creatinine Ratio 21.8 H, Glucose 94, Calcium 9.2, TSH 0.37 Physical Exam Narrative Alert awake oriented x 3 no obvious distress s1s2 no murmurs lungs clear abdomen soft, nontender Bilateral Chriss wraps intact in legs from feet to knees. Assessment & Plan Assessment/Plan (1) Hyponatremia: PLAN: Acute on chronic hyponatremia. Chronic hyponatremia dating back to at least 2018 with Baseline sodium is ranging around 132-134. On admission sodium was 126. Hypervolemic hyponatremia. BNP elevated. Echo from 06/2023 EF 70%, Mild Mitral valve and aortic valve insufficiency. Continue lasix 40mg IV daily. Patient received Samsca 15mg yesterday, will hold off on Samsca for today. Today sodium is 134, near patient's baseline. Will continue on fluid restriction. Reviewed home-going fluid restriction with patient.
--- NOTE | 2023-12-18 12:09 | CASEMGMT ---
OR[place]O REYES Assessment Face to Face with patient for initial transition planning/care coordination assessment. ORLANDO REYES introduced self and role at [facility], pt voices understanding. Pt is A&Ox4 and is resting comfortably in bed and is calm. Care providers, pharmacy, and demographics verified. Admitting dx: BL LE Edema with Hyponatremia, CHF Exacerbation PCP: Rashad Peñaloza Specialists: [facility]. Pt states she sees an Dehydrogenation Converter Operator in [facility] Pharmacy:Miriam Lambert Insurance: [employer] [facility] Prescription Benefit: Yes LNOK: Gabriel Collazo (H). Calista Rhoades (CAT) Living Arrangements: Pt lives with her in a 2 story home with a BM and HR throughout. Pt states there are 2 steps to enter the home with HR. Pt states that she bent over to pick something up off the stair and fell about 3 months ago and injured her Rt knee. See below for further details. ADLs/IADLs: Ind Transportation: Pt drives. Py drives and will be the pt ride home from the hospital. DME: Cane and walker at home. Pt states she uses these occasionally. Walk-in shower with GB and seat. Raised toilet seat with GB. HHC/SNF: Pt states that she had a knee replacement 3 years ago and was sent to [facility] for further rehab. Pt states that after her recent fall she was sent to [facility] again. Pt denies C history or needs but states she is active with wound care at [facility]. Pt states she is seen once per week for her wound to her Rt knee. Pt states that she has a history at [facility] and would like to receive therapy there after DC. Pt?s goal: Home with OP Therapy Plan: PT/OT eval pending. Pt denies the need for SNF or HHC at this time. Pt states that she would like a new order for OP therapy and that she will set this up on her own time once DC from the hospital. Denies further needs. Win Bond RN, CM
--- NOTE | 2023-12-18 15:18 | CHAPLAIN ---
Type of Pastoral Visit _x__ Initial Visit ___ Follow-up Visit ___ On-call Visit ___ General Patient Visit ___ Spiritual Assessment ___ Family Conference ___ Bereavement ___ Rapid Response ___ Code Blue ___ Other (describe below) Pastoral Care Referral From _x__ Patient ___ Family ___ Nurse ___ Physician ___ Manual Tester ___ Bonding Molder ___ Other (describe below) Sacrament/Intervention _x__ Active listening ___ Anointing ___ Mormonism ___ Bereavement ___ Communion ___ Lily exploration ___ _x__ Life review _x__ Prayer ___ Reconciliation ___ Sacrament of Sick _x__ Supportive presence ___ Wedding ___ Other (describe below) Pastoral Comments patient is given time to explain her health concerns and that she is frustrated and that she is looking for better answers; pt gives lots of life review with specifics on her family and their needs; pt feels like she is still being an active parent to her adult children and her grandchildren; pt is given supportive listening and prayer
[2023-12-19 02:14] VITALS: BP 140/90; PULSE 60; RESP 16; TEMP 36.4; O2SAT 96
[2023-12-19 02:23] VITALS: BMI 22.6
[2023-12-19 07:50] LABS: Absolute Neutrophil Count 4.1 X10^3/uL (2.0-7.7); Basophil# 0.06 X10^3/uL; Basophil% 0.7 % (0-1); Eosinophil# 0.31 X10^3/uL; Eosinophils% 3.6 % (0-5); Hematocrit 37.1 % (37-47); Hemoglobin 11.9 g/dL (12.0-15.0); Lymphocyte % 37.3 % (19-41); Mean Corp Hgb Conc 32.1 g/dL (32-36); Mean Corpuscular Hgb 28.6 pg (27.0-32.0); Mean Corpuscular Volume 89.2 fL (81-99); Mean Platelet Vol. 8.3 fl (6.2-12.0); Monocyte# 0.84 X10^3/uL; Monocyte% 9.8 % (0-10); NRBC Flagged by Analyzer 0 % (0-5); Neutrophil # 4.13 X10^3/uL (2.7-7.7); Neutrophil % 48.2 % (47-70); Platelet Count 268 K/mm3 (150-450); RBC Distribution Width CV 17.2 % (11.6-14.6); RBC Distribution Width SD 55.5 fl (35.1-43.9); Red Blood Count 4.16 M/mm3 (4.2-5.4); White Blood Count 8.6 K/mm3 (4.4-11.0)
[2023-12-19 08:06] LABS: Anion Gap 3 (5-15); BUN 19 mg/dL (7-18); BUN/Creat Ratio 20.5 RATIO (10-20); Chloride 101 mmol/L (98-107); Creatinine, Serum 0.93 mg/dL (0.55-1.02); EST Glomerular Filtration Rate 61 mL/min (>60); Est Glom Filt Rate - Afr Amer 74 mL/min (>60); Estimated Creatinine Clearance 36.25 ml/min; Glucose 96 mg/dL (74-106); International Normalized Ratio 2.9; Potassium 4.5 mmol/L (3.5-5.1); Prothrombin Time (Protime)PT. 30.5 SECONDS (11.7-14.9); Sodium Level 132 mmol/L (136-145)
[2023-12-19 08:56] VITALS: BP 130/77; PULSE 97; RESP 18; TEMP 36.3; O2SAT 96
[2023-12-19] MEDS: Loratadine 10 MG Tablet PO (09:17)
[2023-12-19] MEDS: Spironolactone 50 MG Tablet PO (09:17)
[2023-12-19] MEDS: Nitrofurantoin Macrocrystals 100 MG Capsule PO (09:17)
[2023-12-19] MEDS: Calcitriol 0.25 MCG Capsule PO (09:17)
[2023-12-19] MEDS: Carvedilol 6.25 MG Tablet PO (09:18)
[2023-12-19] MEDS: guaiFENesin/D-Methorphan TAB.SR.12H 2 TABLET PO (09:18)
[2023-12-19] MEDS: Polyethylene Glycol 3350 17 GM PACKET PO (09:18)
[2023-12-19] MEDS: Furosemide 40 MG/4 ML Vial IV (09:19)
[2023-12-19 09:30] VITALS: PULSE 97; RESP 18; O2SAT 96
[2023-12-19 09:47] VITALS: O2SAT 96; O2SAT 97
--- NOTE | 2023-12-19 11:04 | DCINST_ITS ---
Discharge Instructions Diet Discharge Diet: Low fat / Low cholesterol, 6 Cup Fluid Restriction and 2000 mg Sodium Diet Activity Discharge Activity: Return to Normal Activity Weight Bearing Status: Weight bearing as tolerated Dressing / Incision Call your doctor if you observe: Fever of 101 or Higher, Coldness, Increased Pain, Numbness or Tingling, Change in Color, Inability to urinate, Inability to have a bowel movement, Shortness of breath, Dizziness, Fainting spells, Swelling in the ankles, Chest pain, Prolonged hiccupping, Increased palpitations (irregular heartbeat) and Calf discomfort Follow Up Care When: IN 2 WEEKS Test Results: Test results from this visit will be discussed in further detail at your follow- up appointment, if applicable. Discharge Plan Admission Admit Date/Time: 12/17/23 08:02 Primary Reason for Your Visit: Acute on chronic HFpEF, hyponatremia Attending Provider: James John Primary Care Provider: Rashad Peñaloza Consulting Providers: Sharri Major Instructions Additional Instructions / Restrictions: Advised repeat BMP in 1 week and follow-up with PCP. Discharge Orders/Prescriptions Prescriptions: Continued Zyrtec 10 mg capsule 10 mg PO DAILY PRN (Reason: allergy symptoms) docusate sodium [Stool Softener] 100 mg capsule 100 mg PO BID calcitriol 0.25 mcg capsule 0.25 mcg PO DAILY albuterol sulfate 90 mcg/actuation HFA aerosol inhaler 2 puff inhalation Q6H PRN (Reason: shortness of breath or wheezing) Patient Comments: inhale 2 puffs by mouth and INTO THE LUNGS every 6 hours if needed for wheezing [employer] Probiotics 5 billion cell tablet,chewable 1 tab PO DAILY PRN (Reason: probiotic) carvedilol 6.25 mg tablet 6.25 mg PO BID Qty: 180 3RF Rx Instructions: must administer with a meal/food amlodipine 5 mg tablet 5 mg PO BID Qty: 180 3RF furosemide 40 mg tablet 40 mg PO DAILY Qty: 90 3RF polyethylene glycol 3350 [Miralax] 17 gram/dose powder 17 g PO DAILY hydrocodone-acetaminophen 5-325 mg tablet 1 tab PO 4X/DAY PRN PRN (Reason: Pain) gdpblocp-tum-afxs-FA-vit K-lut 8 mg iron-400 mcg-300 mcg tablet 1 tab PO DAILY ondansetron 4 mg tablet,disintegrating 4 mg PO Q6H PRN PRN (Reason: Nausea) Qty: 10 0RF nitrofurantoin macrocrystal 100 mg capsule 100 mg PO Q12H Patient Comments: take 1 capsule by mouth twice a day for 10 days spironolactone 50 mg tablet 50 mg PO DAILY Qty: 90 3RF Changed warfarin 1 mg tablet 1 mg PO .COMPLEX 30 Days Qty: 0 0RF Rx Instructions: coumadin 4mg on sunday & , 5 mg on sunday, sunday, sunday, sunday, sunday Start warfarin from tomorrow, 12/20/2023 Discontinued azithromycin 500 mg tablet 500 mg PO DAILY Patient Comments: take 1 tablet by mouth once daily for 10 days Referrals / Follow Up: Sharri Major MD [Med Staff - Consulting] - Within 1 Month Paulo Carrasco MD [Med Staff - Active Staff] - 01/07/24 2:00 pm Rashad Peñaloza MD [Primary Care Provider] - Disposition Disposition (needs filled in before D/C Order can be placed): Home, Self Care
--- NOTE | 2023-12-19 11:10 | DS.PCM_ITS ---
Providers Date of Admission: 12/17/23 Date of Discharge: 12/19/23 Primary Care Physician: Dr. Rashad Peñaloza MD Consultations 12/17/23 08:11 Consult: Nephrology Routine Consulting Provider: Sharri Major Reason for Consult: Hyponatremia with CHF exa EMERGENT Consult: No MD Notified: Yes Date Notified: 12/17/23 Time Notified: 08:11 Method of Notification: ED Physician Initiated 12/17/23 11:33 Consult: Onc/Wound/mothers helper Routine Comment: Reason for Consult:: right leg wounds Reason For Visit: B/L LE EDEMA W/ HYPONATREMIA, CHFEXA Diagnosis Discharge Diagnosis (1) Hyponatremia: Status: Acute Code(s): E87.1 - Hypo-osmolality and hyponatremia (2) Acute on chronic heart failure with preserved ejection fraction (HFpEF): Status: Acute Code(s): I50.33 - Acute on chronic diastolic (congestive) heart failure Plan This is a 83-year-old female being admitted for acute on chronic shortness of breath, orthopnea and bilateral leg swelling consistent with acute on chronic HFpEF. 1. Acute on chronic HFpEF: Chest x-ray individually read which shows no acute finding like pulmonary edema but BNP elevated and patient has dyspnea on exertion and orthopnea consistent with heart failure exacerbation. 2D echo from June 2023 reviewed shows EF 70% with mild MR and mild AI. Furosemide 40 mg IV daily. Heart failure core measures including intake and output, fluid restriction less than 1500 mL, daily weight monitoring, kidney and electrolytes monitoring. Conservative management of URI with a Mucinex DM and loratadine. She completed antibiotic for bronchitis and chest x-ray does not show acute finding/pneumonia. Does not have chest pain and to serial troponins are negative. 12/19: Patient overall doing good. Advised fluid restriction 1500 mill per day, Chriss wrap bandage and other conservative methods to restrict swelling. I think patient might have varicose vein too. Discharge on furosemide 40 mg daily and spironolactone 50 mg daily. 2. Subacute/chronic hyponatremia due to furosemide/hypotonic, hypervolemic hyponatremia: Discussed with the manager retail store and same is consulted. Serum sodium is 126. Urine studies including urine electrolytes ordered. Tolvaptan 15 mg, 1 dose was given. No indication for IV fluid. 12/18: The manager retail store discussed with the pharmacist and patient was given the dose of tolvaptan.Serum sodium increased to 134. Continue fluid restriction. 12/19: [employer] Treat[employer] okay with discharge. Fluid restriction 1500 mill per day including all beverages. 3. Mild CAD, chronic A-fib status post ablation, AV block complete status post pacemaker, MR, aortic incompetence and pulmonary hypertension: Patient was seen in cardiology clinic on 12/10/2023. She has mild coronary artery disease with LAD 20% and did not require PCI, EF 60% in 08/2003. On carvedilol and warfarin resumed. 12/19 INR 2.9 high normal. Skip the dose today and start lower dose from tomorrow AM as described in discharge instruction. 4. Chronic wound in the right leg status post debridement on 08/15/2023. Patient follows with Dr. Wild Gallego, online marketing analyst last seen in wound center on 08/15/2023. Wound nurse consulted. Wound is dry. 12/18 patient was evaluated by wound nurse. 5. Other comorbidities include essential hypertension, dyslipidemia, degenerative osteoarthritis: Blood pressure in ED is controlled heart rate controlled. Home medication reconciliation done. Living will/advanced directive/end of life care: Patient does have living will or advanced directive. Her power of attorney law clerk for health is her Mr. Gabriel Collazo. After discussion of benefits/risks procedures involved with full code, DNR CC arrest and DNR CC, the patient opted for full code. Patient does want artificial life support including intubation, tube feed, ventilator and/chest compression, central venous catheter, vasopressor and DC shock if needed Discharge medication reconciliation done. Discharge follow-up instructions completed. Discharge process discussed with the patient and all questions were answered to patient's satisfaction. Follow with PCP in 1 to 2 weeks Total time spent, exact 35 minutes on discharge meds reconciliation, examination, coordination of care with nurses and ancillary staff, review of imaging and blood test and discussion with the patient on follow-up instructions. Laboratory Results 12/19/23 07:20: WBC 8.6, RBC 4.16 L, Hgb 11.9 L, Hct 37.1, MCV 89.2, MCH 28.6, MCHC 32.1, RDW Std Deviation 55.5 H, RDW Coeff of Donn 17.2 H, Plt Count 268, MPV 8.3, Immature Gran % (Auto) 0.400, Neut % (Auto) 48.2, Lymph % (Auto) 37.3, Lynn % (Auto) 9.8, Eos % (Auto) 3.6, Baso % (Auto) 0.7, Absolute Neuts (auto) 4.1, Absolute Lymphs (auto) 3.20, Nucleated RBC % 0, PT 30.5 H, INR 2.9, Sodium 132 L , Potassium 4.5, Chloride 101, Carbon Dioxide 28.0, Anion Gap 3 L, BUN 19 H, Creatinine 0.93, Estim Creat Clear Calc 36.25, Est GFR (MDRD) Af Amer 74, Est GFR (MDRD) Non-Af 61, BUN/Creatinine Ratio 20.5 H, Glucose 96, Calcium 9.0 Clinical Impression(s) from Imaging Studies Chest X-Ray 12/17/23 06:26 IMPRESSION: No acute findings in the chest. Electronically Signed: Davey Dominguez MD at 6:47 EST , Clinical Impression(s) from Imaging Studies Chest X-Ray 12/17/23 06:26 IMPRESSION: No acute findings in the chest. 2D echo June 2023 Interpretation Summary The estimated ejection fraction is 70 %. Unable to assess diastolic dysfunction. The left atrium is severely enlarged. Mild (1+) mitral valve insufficiency. Mild (1+) aortic valve insufficiency. Medications at Discharge Home Medications cetirizine 10 mg capsule (Zyrtec) 10 mg PO DAILY PRN allergy symptoms 06/08/20 docusate sodium 100 mg capsule (Stool Softener) 100 mg PO BID constipation 06/03/21 albuterol sulfate 90 mcg/actuation aerosol inhaler 2 puff inhalation Q6H PRN shortness of breath or wheezing 03/22/22 calcitriol 0.25 mcg capsule 0.25 mcg PO DAILY see 06/05/22 Lactobacillus rhamnosus GG 5 billion cell chewable tablet ([employer]) 1 tab PO DAILY PRN probiotic 02/20/23 carvedilol 6.25 mg tablet 6.25 mg PO BID htn #180 tabs 02/20/23 hydrocodone-acetaminophen 5-325mg 5mg-325mg 1 tab PO 4X/DAY PRN PRN Pain 02/20/23 hukuezdo-hoab-jzib 8 mg-folic 400 mcg-K 50 mcg-lutein 300 mcg tablet 1 tab PO D AILY health maintenance 02/20/23 spironolactone 50 mg tablet 50 mg PO DAILY #90 tabs 07/04/23 amlodipine 5 mg tablet 5 mg PO BID hypertension #180 tabs 07/05/23 furosemide 40 mg tablet 40 mg PO DAILY edema, shortness of breath #90 tabs 07/05/23 ondansetron 4 mg disintegrating tablet 4 mg PO Q6H PRN PRN Nausea #10 tabs 08/17/23 polyethylene glycol 3350 17 gram/dose oral powder (Miralax) 17 g PO DAILY constipation 12/10/23 nitrofurantoin macrocrystal 100 mg capsule 100 mg PO Q12H uti 12/17/23 warfarin 1 mg tablet 1 mg PO .COMPLEX anticoagulation 30 days #0 tabs 12/19/23 Physical Exam Narrative Seen and examined. Patient leg swelling has much better. She states she was using SADIE hose before and not helping Advised Chriss wrap bandage at home during daytime. Sodium also improved. No chest pain. General: Alert, Oriented x3, Cooperative HEENT: Atraumatic, PERRLA, EOMI, Normocephalic Oral: Oral mucosa moist. No Gingival or Mucosal Lesions/ Ulcerations Neck: Supple, No JVD, Negative Carotid Bruits Chest wall/Lungs: Air entry diminished in bilateral lung bases. No crepitation/rhonchi Cardiovascular: Paced rhythm, Normal S1, Normal S2, loud 4/6, early diastolic murmur over right second ICS with no carotid radiation. Apical systolic murmur present. Abdomen: Bowel Sounds Present, Soft, Non Tender, Non-Distended : No dysuria. No renal angle tenderness. No suprapubic tenderness. Extremities: Leg edema is improved. Capillary Refill Less than 3 Seconds Skin: Chronic dry, open wound over right leg and foot region. No significant discharge. Dressing completed by wound nurse. Musculoskeletal: No Tenderness to Palpation of Joints or Extremities. ROM restricted. Neurological: Cranial nerves II-XII grossly intact, DTR 2+/4. No acute focal neurological deficit. Psych/Mental Status: Flat affect. Weight / BMI Weight Weight: 123 lb 7.342 oz Body Mass Index (BMI) 22.6 ABG / Lab / Microbiology Data 12/19/23 07:20 12/19/23 07:20 Laboratory: Laboratory Results - last 24 hr 12/19/23 07:20: WBC 8.6, RBC 4.16 L, Hgb 11.9 L, Hct 37.1, MCV 89.2, MCH 28.6, MCHC 32.1, RDW Std Deviation 55.5 H, RDW Coeff of Donn 17.2 H, Plt Count 268, MPV 8.3, Immature Gran % (Auto) 0.400, Neut % (Auto) 48.2, Lymph % (Auto) 37.3, Lynn % (Auto) 9.8, Eos % (Auto) 3.6, Baso % (Auto) 0.7, Absolute Neuts (auto) 4.1, Absolute Lymphs (auto) 3.20, Nucleated RBC % 0, PT 30.5 H, INR 2.9, Sodium 132 L , Potassium 4.5, Chloride 101, Carbon Dioxide 28.0, Anion Gap 3 L, BUN 19 H, Creatinine 0.93, Estim Creat Clear Calc 36.25, Est GFR (MDRD) Af Amer 74, Est GFR (MDRD) Non-Af 61, BUN/Creatinine Ratio 20.5 H, Glucose 96, Calcium 9.0 D/C Instructions Discharge Diet: Low fat / Low cholesterol, 6 Cup Fluid Restriction and 2000 mg Sodium Diet Weight Bearing Status: Weight bearing as tolerated Call your doctor if you observe: Fever of 101 or Higher, Coldness, Increased Pain, Numbness or Tingling, Change in Color, Inability to urinate, Inability to have a bowel movement, Shortness of breath, Dizziness, Fainting spells, Swelling in the ankles, Chest pain, Prolonged hiccupping, Increased palpitations (irregular heartbeat) and Calf discomfort When: IN 2 WEEKS Meaningful Use Info Meaningful Use Diagnoses (Choose all that apply): None applicable Discharge Plan Admission Admit Date/Time: 12/17/23 08:02 Primary Reason for Your Visit: Acute on chronic HFpEF, hyponatremia Attending Provider: James John Primary Care Provider: Rashad Peñaloza Consulting Providers: Sharri Major Instructions Additional Instructions / Restrictions: Advised repeat BMP in 1 week and follow-up with PCP. Discharge Orders/Prescriptions Prescriptions: Continued Zyrtec 10 mg capsule 10 mg PO DAILY PRN (Reason: allergy symptoms) docusate sodium [Stool Softener] 100 mg capsule 100 mg PO BID calcitriol 0.25 mcg capsule 0.25 mcg PO DAILY albuterol sulfate 90 mcg/actuation HFA aerosol inhaler 2 puff inhalation Q6H PRN (Reason: shortness of breath or wheezing) Patient Comments: inhale 2 puffs by mouth and INTO THE LUNGS every 6 hours if needed for wheezing [employer] 5 billion cell tablet,chewable 1 tab PO DAILY PRN (Reason: probiotic) carvedilol 6.25 mg tablet 6.25 mg PO BID Qty: 180 3RF Rx Instructions: must administer with a meal/food amlodipine 5 mg tablet 5 mg PO BID Qty: 180 3RF furosemide 40 mg tablet 40 mg PO DAILY Qty: 90 3RF polyethylene glycol 3350 [Miralax] 17 gram/dose powder 17 g PO DAILY hydrocodone-acetaminophen 5-325 mg tablet 1 tab PO 4X/DAY PRN PRN (Reason: Pain) cpdvtzpy-jrt-egzw-FA-vit K-lut 8 mg iron-400 mcg-300 mcg tablet 1 tab PO DAILY ondansetron 4 mg tablet,disintegrating 4 mg PO Q6H PRN PRN (Reason: Nausea) Qty: 10 0RF nitrofurantoin macrocrystal 100 mg capsule 100 mg PO Q12H Patient Comments: take 1 capsule by mouth twice a day for 10 days spironolactone 50 mg tablet 50 mg PO DAILY Qty: 90 3RF Changed warfarin 1 mg tablet 1 mg PO .COMPLEX 30 Days Qty: 0 0RF Rx Instructions: coumadin 4mg on sunday & , 5 mg on sunday, sunday, sunday, sunday, sunday Start warfarin from tomorrow, 12/20/2023 Discontinued azithromycin 500 mg tablet 500 mg PO DAILY Patient Comments: take 1 tablet by mouth once daily for 10 days Referrals / Follow Up: Sharri Major MD [Med Staff - Consulting] - Within 1 Month Paulo Carrasco MD [Med Staff - Active Staff] - 01/07/24 2:00 pm Rashad Peñaloza MD [Primary Care Provider] - Disposition Disposition (needs filled in before D/C Order can be placed): Home, Self Care Charges/Coding Visit Charges Inpatient E&M: 83822 Disch Hosp >30min
--- NOTE | 2023-12-19 11:39 | PCM.PN.REN ---
Documented by User: CHARISSE Dos Santos 12/19/23 11:47 Subjective Subjective Sitting in chair. No overnight events. Denies any complaints. Objective Data Objective Data Vital Signs: Vital Signs Temp Pulse Resp BP Pulse Ox O2 Del Method O2 Flow Rate 97.4 F L 97 18 130/77 H 97 Room Air 0 12/19/23 08:56 12/19/23 09:30 12/19/23 09:30 12/19/23 08:56 12/19/23 09:47 12/19/23 09:30 12/19/23 09:47 Oxygen Flow Rate (L/min) [ 0 AMBULATING on Room Air] Oxygen Flow Rate (L/min) [At 0 REST on Room Air] Oxygen Delivery Method Room Air Weight: 56 kg Body Mass Index (BMI) 22.6 Intake & Output: Intake and Output for Last 24 Hours 12/17/23 12/18/23 12/19/23 23:59 23:59 23:59 Intake Total 1160 / 1160 0 / 0 Output Total 0 / 0 0 / 0 Balance 1160 / 1160 0 / 0 Lab / Micro Data 12/19/23 07:20 12/19/23 07:20 Labs: Laboratory Results - last 24 hr 12/19/23 07:20: WBC 8.6, RBC 4.16 L, Hgb 11.9 L, Hct 37.1, MCV 89.2, MCH 28.6, MCHC 32.1, RDW Std Deviation 55.5 H, RDW Coeff of Donn 17.2 H, Plt Count 268, MPV 8.3, Immature Gran % (Auto) 0.400, Neut % (Auto) 48.2, Lymph % (Auto) 37.3, [place] % (Auto) 9.8, Eos % (Auto) 3.6, Baso % (Auto) 0.7, Absolute Neuts (auto) 4.1, Absolute Lymphs (auto) 3.20, Nucleated RBC % 0, PT 30.5 H, INR 2.9, Sodium 132 L, Potassium 4.5, Chloride 101, Carbon Dioxide 28.0, Anion Gap 3 L, BUN 19 H, Creatinine 0.93, Estim Creat Clear Calc 36.25, Est GFR (MDRD) Af Amer 74, Est GFR (MDRD) Non-Af 61, BUN/Creatinine Ratio 20.5 H, Glucose 96, Calcium 9.0 Physical Exam Narrative Alert awake oriented x 3 no obvious distress s1s2 no murmurs lungs clear abdomen soft, nontender Bilateral Chriss wraps intact in legs from feet to knees. Assessment & Plan Assessment/Plan (1) Hyponatremia: PLAN: Acute on chronic hyponatremia. Chronic hyponatremia dating back to at least 2018 with baseline sodium is ranging around 132-134. On admission sodium was 126 (received Samsca x1)--> sodium 134 and today sodium 132. Hypervolemic hyponatremia. BNP elevated. Echo from 06/2023 EF 70%, Mild Mitral valve and aortic valve insufficiency. Currently on lasix 40mg IV daily. Patient received Samsca 15mg 12/17, will hold off on Samsca for today. Today sodium near patient's baseline. Will continue on fluid restriction. Reviewed home-going fluid restriction with patient again today. Discussed with Dr. Chand. Chin for discharge per renal when cleared by primary team and to continue lasix 40mg daily, aldactone 50mg daily. Will arrange for hospital follow up in [place]. Documented by User: Dr. Sharri Major MD 12/19/23 14:57 Objective Data Lab / Micro Data 12/19/23 07:20 12/19/23 07:20 Assessment & Plan Assessment/Plan (1) Hyponatremia: PLAN: Acute on chronic hyponatremia. Chronic hyponatremia dating back to at least 2018 with baseline sodium is ranging around 132-134. On admission sodium was 126 (received Samsca x1)--> sodium 134 and today sodium 132. Hypervolemic hyponatremia. BNP elevated. Echo from 06/2023 EF 70%, Mild Mitral valve and aortic valve insufficiency. Currently on lasix 40mg IV daily. Patient received Samsca 15mg 12/17, will hold off on Samsca for today. Today sodium near patient's baseline. Will continue on fluid restriction. Reviewed home-going fluid restriction with patient again today. Discussed with Dr. Alvaro. Ok for discharge per renal when cleared by primary team and to continue lasix 40mg daily, aldactone 50mg daily. Will arrange for hospital follow up in [place]. Agree with above. Discussed with hospitalist. Discharge today. We will arrange follow-up
--- NOTE | 2023-12-19 14:27 | PHA.DC.MR.R ---
Pharmacy [place] Med Reconciliation Pharmacy Service has performed discharge medication reconciliation for this patient. Macrobid filled 12/14, written for 10 days The patient's discharge medication list was reviewed for discrepancies and discrepancies were resolved. Medications at Discharge Home Medications cetirizine 10 mg capsule (Zyrtec) 10 mg PO DAILY PRN allergy symptoms 06/08/20 docusate sodium 100 mg capsule (Stool Softener) 100 mg PO BID constipation 06/03/21 albuterol sulfate 90 mcg/actuation aerosol inhaler 2 puff inhalation Q6H PRN shortness of breath or wheezing 03/22/22 calcitriol 0.25 mcg capsule 0.25 mcg PO DAILY see mar 06/05/22 Lactobacillus rhamnosus GG 5 billion cell chewable tablet ([employer]) 1 tab PO DAILY PRN probiotic 02/20/23 carvedilol 6.25 mg tablet 6.25 mg PO BID htn #180 tabs 02/20/23 hydrocodone-acetaminophen 5-325mg 5mg-325mg 1 tab PO 4X/DAY PRN PRN Pain 02/20/23 irwocdlt-dlqk-hxkn 8 mg-folic 400 mcg-K 50 mcg-lutein 300 mcg tablet 1 tab PO DAILY health maintenance 02/20/23 spironolactone 50 mg tablet 50 mg PO DAILY #90 tabs 07/04/23 amlodipine 5 mg tablet 5 mg PO BID hypertension #180 tabs 07/05/23 furosemide 40 mg tablet 40 mg PO DAILY edema, shortness of breath #90 tabs 07/05/23 ondansetron 4 mg disintegrating tablet 4 mg PO Q6H PRN PRN Nausea #10 tabs 08/17/23 polyethylene glycol 3350 17 gram/dose oral powder (Miralax) 17 g PO DAILY constipation 12/10/23 nitrofurantoin macrocrystal 100 mg capsule 100 mg PO Q12H uti 12/17/23 warfarin 1 mg tablet 1 mg PO .COMPLEX anticoagulation 30 days #0 tabs 12/19/23
[2023-12-19 14:29] VITALS: BP 122/79; PULSE 67; RESP 16; TEMP 36.7; O2SAT 99
[2023-12-19] MEDS: oxyCODONE 5 MG Tablet PO (14:38)
[2023-12-19] MEDS: Acetaminophen 325 MG Tablet 650 MG PO (14:40)
--- NOTE | 2023-12-19 15:00 | CASEMGMT ---
Patient has order for discharge. RN CM in to discuss needs. Patient wishes to discharge home with outpatient therapy. Patient wishes to schedule therapy herself. Patient had no further questions or concerns. Hospitalist udpated and script received and provided in discharge packet.
== END 2023-12-19 16:26 | disposition home or self-care (01) | DRG 291 ==
LOC: ED 08:04 → PCU 08:15
PROVIDERS: Admitting Provider Internal Medicine; Emergency Provider Emergency Medicine; PCP Family Medicine; Visit Provider Internal Medicine
DX: I11.0 Hypertensive heart disease with heart failure (principal); I50.33 Acute on chronic diastolic (congestive) heart failure; I44.2 Atrioventricular block, complete; E87.1 Hypo-osmolality and hyponatremia; I48.11 Longstanding persistent atrial fibrillation; I27.20 Pulmonary hypertension, unspecified; Z79.01 Long term (current) use of anticoagulants; E78.5 Hyperlipidemia, unspecified; I25.10 Atherosclerotic heart disease of native coronary artery without angina pectoris; M19.90 Unspecified osteoarthritis, unspecified site; T50.1X5A Adverse effect of loop [high-ceiling] diuretics, initial encounter; Z79.51 Long term (current) use of inhaled steroids; Z79.899 Other long term (current) drug therapy; Z95.0 Presence of cardiac pacemaker
CPT/HCPCS: 36415; 71045; 80048; 81002; 83735; 83880; 84100; 84443; 84484; 85025; 85610; 93005; 94668; 97161; 97166; 99252; 99284; A4216; G0463; J1940

== ENCOUNTER → 2024-01-21 | Outpatient (CLI) | payer MEDICARE, SELFPAY ==
[2024-01-21 16:01] LABS: Anion Gap 6 (5-15); BUN 25 mg/dL (7-18); BUN/Creat Ratio 22.1 RATIO (10-20); Calcium,Total 9.4 mg/dL (8.5-10.1); Chloride 92 mmol/L (98-107); Creatinine, Serum 1.13 mg/dL (0.55-1.02); EST Glomerular Filtration Rate 49 mL/min (>60); Est Glom Filt Rate - Afr Amer 59 mL/min (>60); Glucose 103 mg/dL (74-106); Potassium 5.1 mmol/L (3.5-5.1); Sodium Level 125 mmol/L (136-145)
[2024-01-21 16:04] LABS: BNP,B-Type NATRIURETIC PEPTIDE 204.1 pg/mL (0-100)
== END | disposition home or self-care (01) ==
LOC: LAB 14:45
PROVIDERS: PCP Family Medicine; Referring Provider Internal Medicine Cardiovascular Disease; Visit Provider Internal Medicine Cardiovascular Disease
DX: R06.02 Shortness of breath (principal)
CPT/HCPCS: 36415; 80048; 83880

== ENCOUNTER → 2024-01-25 | Outpatient (CLI) | payer MEDICARE, SELFPAY ==
[2024-01-25 14:13] LABS: Anion Gap 6 (5-15); BUN 23 mg/dL (7-18); BUN/Creat Ratio 27.3 RATIO (10-20); Calcium,Total 9.5 mg/dL (8.5-10.1); Chloride 93 mmol/L (98-107); Creatinine, Serum 0.84 mg/dL (0.55-1.02); EST Glomerular Filtration Rate 68 mL/min (>60); Est Glom Filt Rate - Afr Amer 83 mL/min (>60); Glucose 126 mg/dL (74-106); Potassium 4.7 mmol/L (3.5-5.1); Sodium Level 126 mmol/L (136-145)
== END | disposition home or self-care (01) ==
LOC: LAB 12:35
PROVIDERS: PCP Family Medicine; Referring Provider Physician Assistant Medical; Visit Provider Physician Assistant Medical
DX: E87.1 Hypo-osmolality and hyponatremia (principal)
CPT/HCPCS: 36415; 80048

== ENCOUNTER → 2024-02-06 | Outpatient (CLI) | payer MEDICARE, SELFPAY ==
[2024-02-06 11:42] LABS: Absolute Neutrophil Count 4.5 X10^3/uL (2.0-7.7); Basophil# 0.04 X10^3/uL; Basophil% 0.6 % (0-1); Eosinophil# 0.23 X10^3/uL; Eosinophils% 3.4 % (0-5); Hematocrit 32.6 % (37-47); Hemoglobin 10.8 g/dL (12.0-15.0); Mean Corp Hgb Conc 33.1 g/dL (32-36); Mean Corpuscular Hgb 30.9 pg (27.0-32.0); Mean Corpuscular Volume 93.1 fL (81-99); Mean Platelet Vol. 8.6 fl (6.2-12.0); Monocyte# 0.51 X10^3/uL; Monocyte% 7.5 % (0-10); NRBC Flagged by Analyzer 0 % (0-5); Neutrophil # 4.54 X10^3/uL (2.7-7.7); Neutrophil % 66.4 % (47-70); Platelet Count 255 K/mm3 (150-450); RBC Distribution Width CV 15.5 % (11.6-14.6); White Blood Count 6.8 K/mm3 (4.4-11.0)
[2024-02-06 11:55] LABS: Anion Gap 5 (5-15); BUN 20 mg/dL (7-18); BUN/Creat Ratio 24.8 RATIO (10-20); Calcium,Total 8.8 mg/dL (8.5-10.1); Chloride 98 mmol/L (98-107); Creatinine, Serum 0.81 mg/dL (0.55-1.02); EST Glomerular Filtration Rate 72 mL/min (>60); Est Glom Filt Rate - Afr Amer 87 mL/min (>60); Glucose 99 mg/dL (74-106); Potassium 3.7 mmol/L (3.5-5.1); Sodium Level 132 mmol/L (136-145)
[2024-02-06 11:56] LABS: BNP,B-Type NATRIURETIC PEPTIDE 387.9 pg/mL (0-100)
== END | disposition home or self-care (01) ==
PROVIDERS: PCP Family Medicine; Referring Provider Nurse Practitioner Family; Visit Provider Nurse Practitioner Family
DX: E87.1 Hypo-osmolality and hyponatremia (principal); R42 Dizziness and giddiness; R06.02 Shortness of breath; I25.10 Atherosclerotic heart disease of native coronary artery without angina pectoris; Z79.01 Long term (current) use of anticoagulants
CPT/HCPCS: 36415; 80048; 83880; 85025

== ENCOUNTER → 2024-02-18 | Outpatient (CLI) | payer MEDICARE, SELFPAY ==
[2024-02-18 13:47] LABS: Absolute Lymphocyte Count 2.42 X10^3/uL (0.83-4.51); Absolute Neutrophil Count 5.1 X10^3/uL (2.0-7.7); Basophil# 0.07 X10^3/uL; Basophil% 0.8 % (0-1); Eosinophil# 0.24 X10^3/uL; Eosinophils% 2.8 % (0-5); Hematocrit 34.3 % (37-47); Lymphocyte # 2.42 X10^3/ul (0.83-4.51); Lymphocyte % 28.6 % (19-41); Mean Corp Hgb Conc 32.1 g/dL (32-36); Mean Corpuscular Hgb 29.8 pg (27.0-32.0); Monocyte# 0.65 X10^3/uL; Monocyte% 7.7 % (0-10); NRBC Flagged by Analyzer 0 % (0-5); Neutrophil # 5.06 X10^3/uL (2.7-7.7); Neutrophil % 59.9 % (47-70); Platelet Count 350 K/mm3 (150-450); RBC Distribution Width CV 14.6 % (11.6-14.6); RBC Distribution Width SD 49.4 fl (35.1-43.9); Red Blood Count 3.69 M/mm3 (4.2-5.4); White Blood Count 8.5 K/mm3 (4.4-11.0)
[2024-02-18 14:07] LABS: BNP,B-Type NATRIURETIC PEPTIDE 268.4 pg/mL (0-100)
[2024-02-18 14:09] LABS: AST(SGOT) 29 U/L (15-37); Alanine Aminotransfer ALT/SGPT 27 U/L (13-56); Albumin, Serum 3.8 g/dL (3.2-5.0); Alkaline Phosphatase 120 U/L (45-117); Anion Gap 7 (5-15); BUN 21 mg/dL (7-18); BUN/Creat Ratio 24.3 RATIO (10-20); Calcium,Total 9.5 mg/dL (8.5-10.1); Chloride 96 mmol/L (98-107); Creatinine, Serum 0.86 mg/dL (0.55-1.02); EST Glomerular Filtration Rate 66 mL/min (>60); Est Glom Filt Rate - Afr Amer 80 mL/min (>60); Globulin 3.9 g/dL (2.2-4.2); Glucose 116 mg/dL (74-106); Magnesium 2.3 mg/dL (1.6-2.6); Potassium 4.2 mmol/L (3.5-5.1); Protein, Total 7.7 g/dL (6.4-8.2); Sodium Level 132 mmol/L (136-145)
== END | disposition home or self-care (01) ==
LOC: LAB 13:09
PROVIDERS: PCP Family Medicine; Referring Provider Nurse Practitioner Family; Visit Provider Nurse Practitioner Family
DX: E87.1 Hypo-osmolality and hyponatremia (principal); I48.11 Longstanding persistent atrial fibrillation; R06.02 Shortness of breath; I10 Essential (primary) hypertension
CPT/HCPCS: 36415; 80053; 83735; 83880; 85025

== ENCOUNTER → 2024-03-10 | Outpatient (CLI) | payer MEDICARE, SELFPAY ==
[2024-03-10 16:27] LABS: Anion Gap 7 (5-15); BUN 31 mg/dL (7-18); BUN/Creat Ratio 25.2 RATIO (10-20); Calcium,Total 8.7 mg/dL (8.5-10.1); Chloride 93 mmol/L (98-107); Creatinine, Serum 1.23 mg/dL (0.55-1.02); EST Glomerular Filtration Rate 44 mL/min (>60); Est Glom Filt Rate - Afr Amer 54 mL/min (>60); Glucose 129 mg/dL (74-106); Potassium 4.5 mmol/L (3.5-5.1); Sodium Level 129 mmol/L (136-145)
== END | disposition home or self-care (01) ==
LOC: LAB 15:35
PROVIDERS: PCP Family Medicine; Referring Provider Nurse Practitioner Family; Visit Provider Nurse Practitioner Family
DX: E87.1 Hypo-osmolality and hyponatremia (principal); I11.0 Hypertensive heart disease with heart failure; I50.32 Chronic diastolic (congestive) heart failure; I27.20 Pulmonary hypertension, unspecified
CPT/HCPCS: 36415; 80048

== ENCOUNTER → 2024-03-27 | Outpatient (CLI) | payer MEDICARE, SELFPAY ==
[2024-03-27 09:54] LABS: Absolute Neutrophil Count 3.2 X10^3/uL (2.0-7.7); Basophil# 0.04 X10^3/uL; Basophil% 0.7 % (0-1); Eosinophil# 0.22 X10^3/uL; Eosinophils% 3.6 % (0-5); Hematocrit 33.3 % (37-47); Hemoglobin 10.5 g/dL (12.0-15.0); Lymphocyte % 32.9 % (19-41); Mean Corp Hgb Conc 31.5 g/dL (32-36); Mean Corpuscular Hgb 28.8 pg (27.0-32.0); Mean Corpuscular Volume 91.5 fL (81-99); Mean Platelet Vol. 8.9 fl (6.2-12.0); Monocyte# 0.58 X10^3/uL; Monocyte% 9.5 % (0-10); NRBC Flagged by Analyzer 0 % (0-5); Neutrophil # 3.23 X10^3/uL (2.7-7.7); Neutrophil % 53.1 % (47-70); Platelet Count 255 K/mm3 (150-450); RBC Distribution Width CV 13.8 % (11.6-14.6); RBC Distribution Width SD 46.6 fl (35.1-43.9); Red Blood Count 3.64 M/mm3 (4.2-5.4); White Blood Count 6.1 K/mm3 (4.4-11.0)
[2024-03-27 10:40] LABS: BNP,B-Type NATRIURETIC PEPTIDE 387.2 pg/mL (0-100)
[2024-03-27 11:13] LABS: Anion Gap 5 (5-15); BUN 23 mg/dL (7-18); BUN/Creat Ratio 25.2 RATIO (10-20); Calcium,Total 9.6 mg/dL (8.5-10.1); Chloride 93 mmol/L (98-107); Creatinine, Serum 0.91 mg/dL (0.55-1.02); EST Glomerular Filtration Rate 62 mL/min (>60); Est Glom Filt Rate - Afr Amer 76 mL/min (>60); Glucose 137 mg/dL (74-106); Potassium 4.7 mmol/L (3.5-5.1); Sodium Level 128 mmol/L (136-145); T4 Free Direct 1.16 ng/dL (0.76-1.46)
== END | disposition home or self-care (01) ==
PROVIDERS: PCP Family Medicine; Referring Provider Nurse Practitioner Family; Visit Provider Nurse Practitioner Family
DX: E87.1 Hypo-osmolality and hyponatremia (principal); I48.91 Unspecified atrial fibrillation; I10 Essential (primary) hypertension; R06.02 Shortness of breath
CPT/HCPCS: 36415; 80048; 83735; 83880; 84439; 84443; 85025

== ENCOUNTER 2024-04-23 11:00 | Outpatient (RCR) | payer MEDICARE, SELFPAY ==
[2024-04-09 10:25] VITALS: BP 204/112; PULSE 92; RESP 18; TEMP 36.2; BMI 24.8
--- NOTE | 2024-04-09 11:42 | WC ---
04/09/2024 (I) LT LATERAL LOWER EXT
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
[2024-04-16 10:28] VITALS: BMI 24.8
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
--- NOTE | 2024-04-21 12:08 | WC ---
CULTURE RESULTS REVIEWED BY RONNY REZA. N.O.'S RECEIVED FOR PT TO START METRONIDAZOLE AND LINEZOLID. CALLED PT W/ UPDATE, RX CALLED TO PHARMACY OF PREFERENCE ([place]ANTELL IN [place]), ALLERGIES REVIEWED.
[2024-04-23 11:33] VITALS: BP 171/89; PULSE 70; RESP 18; BMI 24.8
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
== END 2024-04-27 23:59 | disposition home or self-care (01) ==
LOC: WC 11:00
PROVIDERS: PCP Family Medicine; Referring Provider Nurse Practitioner Family; Visit Provider Nurse Practitioner
DX: S81.812A Laceration without foreign body, left lower leg, initial encounter (principal); I11.0 Hypertensive heart disease with heart failure; I50.32 Chronic diastolic (congestive) heart failure; I48.11 Longstanding persistent atrial fibrillation; I25.10 Atherosclerotic heart disease of native coronary artery without angina pectoris; Z79.01 Long term (current) use of anticoagulants; E78.5 Hyperlipidemia, unspecified; R41.0 Disorientation, unspecified; W22.8XXA Striking against or struck by other objects, initial encounter; Z79.899 Other long term (current) drug therapy
CPT/HCPCS: 11042; 87070; 87075; 87077; 87186; 87205; 99213; G0463

== ENCOUNTER 2024-04-28 21:27 | Emergency (ER) | payer MEDICARE, SELFPAY ==
[2024-04-28 21:27] VITALS: BP 162/81; PULSE 63; RESP 16; TEMP 36.1; O2SAT 99
--- NOTE | 2024-04-29 | RAD_ITS ---
EXAM: XR LEFT KNEE, 3 VIEWS CLINICAL INDICATION: INJURY TECHNIQUE: Three views of the left knee. COMPARISON: No relevant prior studies available. FINDINGS: BONES/JOINTS: Marked medial compartment joint space narrowing with marginal osteophytes. Marginal osteophytes and patellofemoral joint. Chondrocalcinosis involving the medial meniscus. No acute fracture. No subluxation. Normal alignment. No sclerotic or destructive changes observed. SOFT TISSUES: Unremarkable. No soft tissue swelling or gas. No radiopaque foreign body. RAD/Knee 3 Views IMPRESSION: Moderate arthrosis left knee. No fracture. Electronically Signed: Paulo Mazariegos MD at 1:25 EDT ,
--- NOTE | 2024-04-29 | RAD_ITS ---
EXAM: XR RIGHT KNEE, 3 VIEWS CLINICAL INDICATION: injury TECHNIQUE: Three views of the right knee. COMPARISON: No relevant prior studies available. FINDINGS: BONES/JOINTS: Right total knee arthroplasty. Components appear well seated. No acute fracture. No subluxation. Normal alignment. No sclerotic or destructive changes observed. SOFT TISSUES: Unremarkable. No soft tissue swelling or gas. No radiopaque foreign body. RAD/Knee 3 Views IMPRESSION: No acute fracture. Electronically Signed: Paulo Mazariegos MD at 1:04 EDT ,
--- NOTE | 2024-04-29 | RAD_ITS ---
EXAM: XR LEFT ELBOW COMPLETE, 3 OR MORE VIEWS CLINICAL INDICATION: injury TECHNIQUE: Frontal, lateral and oblique views of the left elbow. COMPARISON: No relevant prior studies available. FINDINGS: BONES/JOINTS: Unremarkable. There is no displacement of the anterior or posterior fat pads. No acute fracture. No subluxation. Normal alignment. Preservation of the joint space. No destructive or sclerotic lesions. SOFT TISSUES: Unremarkable. No soft tissue swelling or gas. No radiopaque foreign body. RAD/Elbow min 3 Views IMPRESSION: Negative left elbow. Electronically Signed: Paulo Mazariegos MD at 1:34 EDT ,
[2024-04-29 00:03] VITALS: BMI 26.8
[2024-04-29 01:27] VITALS: PULSE 87; RESP 18; O2SAT 98
--- NOTE | 2024-04-29 02:20 | EDS_ITS ---
HPI History of Present Illness Chief Complaint: Fall Informant: patient and spouse/S.O. Narrative Narrative: Patient is an 83-year-old female with past medical history of hypertension hyperlipidemia and persistent atrial fibrillation requiring pacemaker placement. She is on Coumadin secondary to the history of persistent A-fib. She reports she has a chronic wound to her left rizvi which she is seeing wound care for. She states that the wound culture recently grew out 2 different types of bacteria and therefore she is on antibiotics. She states antibiotics make her feel dizzy and that today she was bending down to grab something when she lost her balance and fell striking her left knee and left forearm. She denies hitting her head or any loss of consciousness but secondary to the trauma presents for evaluation [facility] Medical History Pneumonia Hyponatremia CAD (coronary artery disease) Pericardial effusion snf current use of anticoagulant Hyperlipidemia Tear of biceps muscle Osteoarthrosis Diverticulitis Essential hypertension Nonrheumatic mitral valve regurgitation Pulmonary hypertension Diastolic congestive heart failure Longstanding persistent atrial fibrillation AV block, complete Home Medications ?Medication ?Instructions ?Recorded ?Last Taken ?Type docusate sodium 100 mg capsule 100 mg PO BID constipation 06/03/21 12/16/23 History (Stool Softener) albuterol sulfate 90 mcg/actuation 2 puff inhalation Q6H PRN 03/22/22 Unknown History aerosol inhaler shortness of breath or wheezing Lactobacillus rhamnosus GG 5 1 tab PO DAILY PRN probiotic 02/20/23 Unknown History billion cell chewable tablet (Culturelle Kids Probiotics) ondansetron 4 mg disintegrating 4 mg PO Q6H PRN PRN Nausea #10 tabs 08/17/23 12/16/23 Rx tablet ibandronate 150 mg tablet 150 mg PO QMONTH 01/07/24 Unknown History potassium chloride 20 mEq 20 meq PO DAILY #90 tabs 02/06/24 Unknown Rx tablet,extended release polyethylene glycol 3350 17 17 g PO DAILY PRN constipation 02/07/24 Unknown History gram/dose oral powder (Miralax) warfarin 1 mg tablet 1 mg PO .COMPLEX anticoagulation 02/07/24 Unknown History naloxegol 25 mg tablet (Movantik) 25 mg PO QAM PRN 02/18/24 Unknown History losartan 100 mg tablet 100 mg PO DAILY #90 tabs 03/04/24 Unknown Rx calcitriol 0.25 mcg capsule 0.25 mcg PO DAILY see 04/07/24 Unknown History cephalexin 500 mg capsule 500 mg PO BID 04/07/24 Unknown History ergocalciferol (vitamin D2) 1,250 1,250 mcg PO QWEEK 04/07/24 Unknown History mcg (50,000 unit) capsule furosemide 40 mg tablet 40 mg PO BID edema, shortness of 04/07/24 Unknown History breath hydrocodone-acetaminophen 5-325mg 1 tab PO TID PRN Pain 04/07/24 Unknown History 5mg-325mg knnuzlqh-pkd-xhcuj acid 0.4 1 tab PO DAILY 04/07/24 Unknown History mg-lycopene 300 mcg-lutein 250 mcg tablet (Centrum Silver) carvedilol 12.5 mg tablet 12.5 mg PO BID htn #180 tabs 04/11/24 Unknown Rx Allergy/AdvReac Type Severity Reaction Status Date / Time Iodinated Contrast Media Allergy Rash Verified 04/28/24 21:28 (Iodinated Contrast- Oral and IV Dye) iodine Allergy Rash Verified 04/28/24 21:28 Penicillins (PCN) Allergy Rash Verified 04/28/24 21:28 ciprofloxacin (From Cipro) AdvReac Intermediate dizziness Verified 04/28/24 21:28 clindamycin AdvReac Intermediate nausea Verified 04/28/24 21:28 levofloxacin (From Levaquin) AdvReac Intermediate abdominal Verified 04/28/24 21:28 pain, nausea simvastatin AdvReac Intermediate Myalgias Verified 04/28/24 21:28 Family History Father , Age 82 CAD (coronary artery disease) Myocardial infarction CVA (cerebral vascular accident) Hypertension Mother , Age 94 Hypertension CVA (cerebral vascular accident) Sister Cancer Brother , Age 13 months from congenital heart defect Congenital heart defect Surgical History H/O colectomy History of bunionectomy History of appendectomy History of hysterectomy (1990) History of knee replacement (05/2018) History of tilt table evaluation (06/02/04) History of left heart catheterization (09/09/03) History of cardioversion (07/12/05) Hx of atrioventricular node ablation History of radiofrequency ablation procedure for cardiac arrhythmia Cardiac pacemaker in situ Social History household members: spouse Smoking Status: Never smoker alcohol intake: never substance use type: does not use caffeine: No ROS ROS ED Constitutional Constitutional ED: Denies chills or fever(s) Eyes Eyes: Denies blurry vision or change in vision ENT ENT ED: Denies sore throat Cardiovascular Cardiovascular: Denies chest pain Respiratory/Chest Respiratory/Chest: Denies cough or dyspnea Gastrointestinal Gastrointestinal: Denies abdominal pain, diarrhea, nausea or vomiting Genitourinary Genitourinary ED: Denies dysuria Musculoskeletal Musculoskeletal: Reports other Details: Positive left forearm as well as bilateral knee pain ; Denies back pain or neck pain Integumentary Reports other Details: Positive bruising right knee Positive laceration left knee and left forearm/elbow Neurologic Neurologic: Denies headache(s) Hematologic/Lymphatic Hematologic/Lymphatic: Reports easy bleeding and easy bruising EXAM Physical Exam Const Vital Signs: 04/28/24 21:27 04/29/24 00:05 04/29/24 01:27 Temperature 97 F L Temperature Source Temporal Pulse Rate 63 87 Respiratory Rate 16 18 Respiratory Effort Normal Non-Labored Respiratory Depth Normal Respiratory Pattern Normal Blood Pressure 162/81 H Blood Pressure Mean 108 Pulse Ox 99 98 Oxygen Delivery Method Room Air Room Air 04/29/24 02:21 Temperature 97.1 F L Temperature Source Pulse Rate 70 Respiratory Rate 18 Respiratory Effort Respiratory Depth Respiratory Pattern Blood Pressure 173/83 H Blood Pressure Mean 113 Pulse Ox 97 Oxygen Delivery Method Positive well nourished and well developed General Appearance ED: well developed HEENT HEENT Narrative: Normocephalic atraumatic No signs of depressed or basilar skull fracture Eyes PERRL and EOMs intact bilaterally General Eye ED: Negative for pale conjunctiva or scleral icterus Neck supple Neck Narrative: No bony deformity or step-off of the cervical spine no midline tenderness to palpation Chest Wall palpation of chest normal Chest Narrative: No bony deformity or crepitance noted Resp normal respiratory effort and clear to auscultation bilaterally Cardio regular rate and regular rhythm GI normal to inspection, nondistended, normoactive bowel sounds, non-tender, non- distended and no masses GI Narrative: Patient has a reducible ventral hernia otherwise there is no overlying ecchymosis or abrasions or pain with palpation Auscultation: normoactive bowel sounds Palpation: soft Back/Spine Back/Spine Narrative: No bony deformity or step-off of the thoracic or lumbar spine no midline tenderness to palpation Extremity Extremity Narrative: Pelvis is stable there is no shortening or external rotation of either lower extremity Patient has a superficial hematoma to the anterior medial aspect of the right knee There is a curvilinear subcutaneous layer deep skin tear over top the anterior aspect of the left knee is approximately 5 cm in length with minimal ooze of blood and no foreign body There is a subcutaneous layer deep jagged skin tear/avulsion to the anterior lateral aspect of the left forearm/elbow that is approximately 2.5 cm in length also minimal ooze of blood and no retained foreign body Otherwise no obvious bony deformity or joint effusion noted Neuro oriented x3, CN's II-XII intact bilaterally and no sensory deficits noted Sensorium / Orientation: alert Psych mental status grossly normal Skin Skin Narrative: Chronic wound to the left lower leg as well as the hematoma to the right knee and skin tear of the left knee/left elbow as documented above MDM MDM MDM Narrative Medical decision making narrative: Patient arrived to ER hypertensive but otherwise with stable vitals. She states ever since being on the antibiotic from care she is felt dizzy and fell when she was bending over. As the dizziness has been persistent so she started antibiotics and the fall was more mechanical in nature I do not feel need for cardiac or syncope workup. She did not strike her head or have loss of consciousness but with the fall and history of bleeding disorder/blood thinner use I did elect to perform a CT scan to rule out skull fracture versus subarachnoid subdural or epidural hematoma. Based on the patient's trauma there is concern for periprosthetic fracture versus tibial toe fracture versus patellar fracture or forearm fracture so x-rays were obtained. X-rays revealed no signs of bony injury and no signs of joint effusion. This indicates that the hematoma to the anterior knee is in the superficial tissue and not secondary to internal bleeding or joint hematoma. The patient's left elbow/forearm skin tear is more of an avulsion and there is no potential way to close this with sutures or Steri-Strips. However the left knee laceration caused the skin to roll up underneath the cut and this can be extended to loosely approximate the wound edges. Therefore both wounds were cleaned with chlorhexidine and then Steri- Strips were applied as documented below to bring the wound edges together good approximation of the left knee. At this time as there is no signs of underlying internal injury there is no need for further workup in the ER and she is otherwise safe for discharge Patient had her left knee laceration cleaned with chlorhexidine. The area was anesthetized with 5 mL of 2% lidocaine without epinephrine and local fashion. The skin edges were unrolled from underneath the cut and then Steri-Strips were used to bring the wound edges together good approximation. The wound was then bandaged and patient tolerated the procedure well without complication History & Record Review Discussion w/independent historian: Patient and Significant other Radiography Diagnostic Testing: Clinical Impression(s) from Imaging Studies Elbow X-Ray 04/29/24 00:00 IMPRESSION: Negative left elbow. Electronically Signed: Paulo Mazariegos MD at 1:34 EDT Reading Location ID and State: [email or web address] [facility] [employer] Tel , Service support , Knee X-Ray 04/29/24 00:00 IMPRESSION: No acute fracture. Electronically Signed: Paulo Mazariegos MD at 1:04 EDT Reading Location ID and State: [email or web address] [facility] [employer] Tel , Service support , Knee X-Ray 04/29/24 00:00 IMPRESSION: Moderate arthrosis left knee. No fracture. Electronically Signed: Paulo Mazariegos MD at 1:25 EDT Reading Location ID and State: [email or web address] [facility] [employer] Tel , Service support , Brain CT 04/29/24 23:48 IMPRESSION: Moderate generalized atrophy. Moderate low density bilaterally in the deep white matter. This likely represents chronic small vessel ischemic changes in the deep white matter. Electronically Signed: Paulo Mazariegos MD at 1:44 EDT Reading Location ID and State: [email or web address] Tel , Service support , X-ray of the left elbow as interpreted by the emergency medicine physician reveals no acute fracture dislocation or joint effusion X-ray of the right knee as interpreted by the emergency medicine physician reveals hardware to be intact and in place without acute fracture or dislocation or joint effusion X-ray of the left knee as interpreted by emergency medicine physician reveals no acute fracture dislocation or joint effusion Discharge Plan Triage Chief Complaint: Fall ED Provider: Vinicio Ramos Dx/Rx/DC Orders Clinical Impression: Skin tear of elbow without complication, Skin tear of left lower leg without complication, Traumatic hematoma of right knee, Cardiac pacemaker in situ, Current use of prison anticoagulation, Longstanding persistent atrial fibrillation, Essential hypertension Instructions: ED Hematoma, ED Skin Tear (Skin Avulsion) Prescriptions: No Action docusate sodium [Stool Softener] 100 mg capsule 100 mg PO BID calcitriol 0.25 mcg capsule 0.25 mcg PO DAILY Rx Instructions: Take 1 capsule BID on MWF, 1 capsule daily all other days albuterol sulfate 90 mcg/actuation HFA aerosol inhaler 2 puff inhalation Q6H PRN (Reason: shortness of breath or wheezing) Patient Comments: inhale 2 puffs by mouth and INTO THE LUNGS every 6 hours if needed for wheezing Culturelle Kids Probiotics 5 billion cell tablet,chewable 1 tab PO DAILY PRN (Reason: probiotic) polyethylene glycol 3350 [Miralax] 17 gram/dose powder 17 g PO DAILY PRN (Reason: constipation) ibandronate 150 mg tablet 150 mg PO QMONTH ergocalciferol (vitamin D2) 1,250 mcg (50,000 unit) capsule 1,250 mcg PO QWEEK Centrum Silver 0.4 mg-300 mcg- 250 mcg tablet 1 tab PO DAILY cephalexin 500 mg capsule 500 mg PO BID Rx Instructions: for 10 days furosemide 40 mg tablet 40 mg PO BID warfarin 1 mg tablet 1 mg PO .COMPLEX Rx Instructions: coumadin 9 mg on Sunday, 6 mg rest. Managed by PCP Movantik 25 mg tablet 25 mg PO QAM PRN Rx Instructions: must be taken on empty stomach; no food 1 hr after or 2-3 hrs before dose hydrocodone-acetaminophen 5-325 mg tablet 1 tab PO TID PRN (Reason: Pain) ondansetron 4 mg tablet,disintegrating 4 mg PO Q6H PRN PRN (Reason: Nausea) Qty: 10 0RF potassium chloride 20 mEq tablet extended release 20 meq PO DAILY Qty: 90 3RF losartan 100 mg tablet 100 mg PO DAILY Qty: 90 3RF carvedilol 12.5 mg tablet 12.5 mg PO BID Qty: 180 3RF Rx Instructions: must administer with a meal/food Primary Care Provider: Rashad Peñaloza Referrals: Rashad Peñaloza MD [Primary Care Provider] - Print Language: Chadian Disposition Disposition: Home, Self Care Discharge Date/Time: 04/29/24 02:32
[2024-04-29 02:21] VITALS: BP 173/83; PULSE 70; RESP 18; TEMP 36.2; O2SAT 97
--- NOTE | 2024-04-29 23:48 | CT_ITS ---
EXAM: CT HEAD WITHOUT INTRAVENOUS CONTRAST CLINICAL INDICATION: injury TECHNIQUE: Multiple axial images were obtained of the head without intravenous contrast. This CT exam was performed using one or more of the following dose reduction techniques: automated exposure control, adjustment of the mA and/or kV according to patient size, and/or use of iterative reconstruction technique. RADIATION DOSE: CTDIvol = 44.99 mGy, DLP = 829.85 mGy-cm COMPARISON: No relevant prior studies available. FINDINGS: BRAIN AND EXTRA-AXIAL SPACES: Moderate generalized atrophy. Moderate low density bilaterally in the deep white matter. No intra- or extra-axial hemorrhage. No evidence of acute infarct. No intracranial mass or mass effect. There is preservation of the wright/white matter interface. Posterior fossa structures are unremarkable. No hydrocephalus. Basal cisterns are patent. BONES/JOINTS: Unremarkable. No discrete lytic or blastic abnormalities. SINUSES: Unremarkable as visualized. Clear. MASTOID AIR CELLS: Unremarkable. Clear. ORBITS: Visualized globes, extraocular muscles, optic nerves and retrobulbar fat appear unremarkable. CT/Brain/Head without Contrast IMPRESSION: Moderate generalized atrophy. Moderate low density bilaterally in the deep white matter. This likely represents chronic small vessel ischemic changes in the deep white matter. Electronically Signed: Paulo Mazariegos MD at 1:44 EDT ,
== END 2024-04-29 02:32 | disposition home or self-care (01) ==
PROVIDERS: Emergency Provider Emergency Medicine; PCP Family Medicine; Visit Provider Emergency Medicine
DX: S51.012A Laceration without foreign body of left elbow, initial encounter (principal); I11.0 Hypertensive heart disease with heart failure; I50.32 Chronic diastolic (congestive) heart failure; I48.11 Longstanding persistent atrial fibrillation; S81.812A Laceration without foreign body, left lower leg, initial encounter; S89.91XA Unspecified injury of right lower leg, initial encounter; I25.10 Atherosclerotic heart disease of native coronary artery without angina pectoris; Z79.01 Long term (current) use of anticoagulants; Z95.0 Presence of cardiac pacemaker; W19.XXXA Unspecified fall, initial encounter
CPT/HCPCS: 70450; 73080; 73562; 99285; A4216

== ENCOUNTER 2024-05-05 13:28 | Emergency (ER) | payer MEDICARE, SELFPAY ==
[2024-05-05 13:30] VITALS: BP 112/94; PULSE 71; RESP 18; TEMP 36.4; O2SAT 98; BMI 25.2
[2024-05-05 15:10] LABS: Absolute Lymphocyte Count 1.26 X10^3/uL (0.83-4.51); Absolute Neutrophil Count 3.3 X10^3/uL (2.0-7.7); Basophil# 0.03 X10^3/uL; Basophil% 0.6 % (0-1); Eosinophils% 1.9 % (0-5); Hematocrit 31.6 % (37-47); Hemoglobin 10.2 g/dL (12.0-15.0); Lymphocyte # 1.26 X10^3/ul (0.83-4.51); Lymphocyte % 23.6 % (19-41); Mean Corp Hgb Conc 32.3 g/dL (32-36); Mean Corpuscular Hgb 28.1 pg (27.0-32.0); Mean Corpuscular Volume 87.1 fL (81-99); Mean Platelet Vol. 9.1 fl (6.2-12.0); Monocyte# 0.58 X10^3/uL; Monocyte% 10.9 % (0-10); NRBC Flagged by Analyzer 0 % (0-5); Neutrophil # 3.34 X10^3/uL (2.7-7.7); Neutrophil % 62.6 % (47-70); Platelet Count 146 K/mm3 (150-450); RBC Distribution Width CV 14.6 % (11.6-14.6); RBC Distribution Width SD 46.2 fl (35.1-43.9); Red Blood Count 3.63 M/mm3 (4.2-5.4); White Blood Count 5.3 K/mm3 (4.4-11.0)
[2024-05-05 15:20] LABS: Prothrombin Time (Protime)PT. 40.1 SECONDS (11.7-14.9)
[2024-05-05 15:22] LABS: International Normalized Ratio 4.2
[2024-05-05 15:29] VITALS: BP 115/87; PULSE 73; RESP 18; O2SAT 97
[2024-05-05 15:44] LABS: Anion Gap 6 (5-15); BUN 26 mg/dL (7-18); Calcium,Total 9.4 mg/dL (8.5-10.1); Chloride 95 mmol/L (98-107); EST Glomerular Filtration Rate 64 mL/min (>60); Est Glom Filt Rate - Afr Amer 77 mL/min (>60); Estimated Creatinine Clearance 41.24 ml/min; Glucose 107 mg/dL (74-106); Potassium 4.4 mmol/L (3.5-5.1); Sodium Level 129 mmol/L (136-145)
--- NOTE | 2024-05-05 16:02 | EDS_ITS ---
HPI History of Present Illness HPI Narrative: 83-year-old female history of CAD, CHF, A-fib on Coumadin. She also has a pacemaker. Fell around 2 weeks ago. Injured both knees. X-rays at that time were negative as was her CAT scan. She followed up with wound care center they placed her on 2 different antibiotics for abrasions and infections that she developed on the skin. She had been doing well. Recently she has developed more bruising in her lower extremities and some blood blisters underwent so valu ated today. She denies any new complaints. Does not feel ill. Had her INR checked the other day and it was 5.3. They had her hold her Coumadin. Chief Complaint: Wound Check Informant: patient and spouse/S.O. Occured/Mechanism Mechanism/Context: Yes injury and Yes blunt trauma Onset/Context/Timing Onset: Weeks Context: Sudden Onset Timing: Continuous Current Severity: Mild Maximum Severity: Mild Associated Symptoms Associated Symptoms: Negative for Parasthesia or Loss of Funtion Narrative Narrative: 83-year-old status post fall several weeks ago injury to both knees. Soft tissue injuries. X-rays were negative. Sent in today from the wound care c enter due to blistering. Prior similar symptoms: Yes Recent Illness/Hospitalization: No [facility] Medical History Non-pressure 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 layer exposed Open wound of knee Wound, open, elbow Traumatic open wound of left lower leg Osteoarthritis of both knees Chronic anemia GERD (gastroesophageal reflux disease) Atrial fibrillation Pneumonia Hyponatremia CAD (coronary artery disease) Pericardial effusion USP current use of anticoagulant Hyperlipidemia Tear of biceps muscle Osteoarthrosis Diverticulitis Essential hypertension Nonrheumatic mitral valve regurgitation Pulmonary hypertension Diastolic congestive heart failure Longstanding persistent atrial fibrillation AV block, complete Home Medications ?Medication ?Instructions ?Recorded ?Last Taken ?Type docusate sodium 100 mg capsule 100 mg PO BID constipation 06/03/21 12/16/23 History (Stool Softener) albuterol sulfate 90 mcg/actuation 2 puff inhalation Q6H PRN 03/22/22 Unknown History aerosol inhaler shortness of breath or wheezing Lactobacillus rhamnosus GG 5 1 tab PO DAILY PRN probiotic 02/20/23 Unknown History billion cell chewable tablet (Culturelle Kids Probiotics) ondansetron 4 mg disintegrating 4 mg PO Q6H PRN PRN Nausea #10 tabs 08/17/23 12/16/23 Rx tablet ibandronate 150 mg tablet 150 mg PO QMONTH 01/07/24 Unknown History potassium chloride 20 mEq 20 meq PO DAILY #90 tabs 02/06/24 Unknown Rx tablet,extended release polyethylene glycol 3350 17 17 g PO DAILY PRN constipation 02/07/24 Unknown History gram/dose oral powder (Miralax) warfarin 1 mg tablet 1 mg PO .COMPLEX anticoagulation 02/07/24 Unknown History naloxegol 25 mg tablet (Movantik) 25 mg PO QAM PRN 02/18/24 Unknown History losartan 100 mg tablet 100 mg PO DAILY #90 tabs 03/04/24 Unknown Rx calcitriol 0.25 mcg capsule 0.25 mcg PO DAILY see mar 04/07/24 Unknown History cephalexin 500 mg capsule 500 mg PO BID 04/07/24 Unknown History ergocalciferol (vitamin D2) 1,250 1,250 mcg PO QWEEK 04/07/24 Unknown History mcg (50,000 unit) capsule furosemide 40 mg tablet 40 mg PO BID edema, shortness of 04/07/24 Unknown History breath hydrocodone-acetaminophen 5-325mg 1 tab PO TID PRN Pain 04/07/24 Unknown History 5mg-325mg [id number]-[id number]-ctjuh acid 0.4 1 tab PO DAILY 04/07/24 Unknown History mg-lycopene 300 mcg-lutein 250 mcg tablet (Centrum Silver) carvedilol 12.5 mg tablet 12.5 mg PO BID htn #180 tabs 04/11/24 Unknown Rx Allergy/AdvReac Type Severity Reaction Status Date / Time Iodinated Contrast Media Allergy Rash Verified 05/05/24 13:29 (Iodinated Contrast- Oral and IV Dye) iodine Allergy Rash Verified 05/05/24 13:29 Penicillins (PCN) Allergy Rash Verified 05/05/24 13:29 ciprofloxacin (From Cipro) AdvReac Intermediate dizziness Verified 05/05/24 13:29 clindamycin AdvReac Intermediate nausea Verified 05/05/24 13:29 levofloxacin (From Levaquin) AdvReac Intermediate abdominal Verified 05/05/24 13:29 pain, nausea simvastatin AdvReac Intermediate Myalgias Verified 05/05/24 13:29 Family History Father , Age 82 CAD (coronary artery disease) Myocardial infarction CVA (cerebral vascular accident) Hypertension Mother , Age 94 Hypertension CVA (cerebral vascular accident) Sister Cancer Brother , Age 13 months from congenital heart defect Congenital heart defect Surgical History History of left heart catheterization (09/09/03) History of cardioversion (07/12/05) H/O colectomy History of bunionectomy History of appendectomy History of hysterectomy (1990) History of knee replacement (05/2018) History of tilt table evaluation (06/02/04) Hx of atrioventricular node ablation History of radiofrequency ablation procedure for cardiac arrhythmia Cardiac pacemaker in situ Social History household members: spouse Smoking Status: Never smoker alcohol intake: never substance use type: does not use caffeine: No ROS ROS ED ROS Narrative Denies recent illness. Review of Systems ROS Unobtainable: Denies due to encephalopathy Constitutional Constitutional ED: Denies chills or fever(s) Eyes Eyes: Denies blurry vision ENT ENT ED: Denies ear pain Cardiovascular Cardiovascular: Denies chest pain Respiratory/Chest Respiratory/Chest: Denies cough or dyspnea Gastrointestinal Gastrointestinal: Denies abdominal pain Genitourinary Genitourinary ED: Denies dysuria or hematuria Musculoskeletal Musculoskeletal: Denies arthralgias or back pain Integumentary Denies abscess or Abrasions Neurologic Neurologic: Denies headache(s) or paresthesias Endocrine Endocrinology: Denies polydipsia or polyphagia Hematologic/Lymphatic Hematologic/Lymphatic: Denies easy bleeding or easy bruising Allergic/Immunologic Allergic/Immunologic ED: Denies mouth swelling or tongue swelling EXAM Physical Exam Narrative Exam Narrative: Well-appearing 83-year-old female. Vital signs stable afebrile. H EENT exam unremarkable atraumatic. Pupils round react light. Neck nontender. Lungs clear to auscultation. Heart rate about 70 no murmur. Chest wall and ribs nontender. Abdomen soft nontender. Moving all 4 extremities. She is a dressing on her left knee and lower leg. She has bruising and several blood blisters on her right knee. She has normal flexion extension. There is no significant tenderness. There is no signs of infection. She has bruising from her right knee down her right ankle. She is able to move all 4 extremities. There is no deformity or significant tenderness. Back nontender. Neurologically she is awake and alert no focal motor loss. Benign exam. Const Vital Signs: 05/05/24 13:30 05/05/24 15:29 Temperature 97.6 F L Temperature Source Temporal Pulse Rate 71 73 Respiratory Rate 18 18 Blood Pressure 112/94 H 115/87 H Blood Pressure Mean 100 96 Pulse Ox 98 97 Oxygen Delivery Method Room Air Room Air Positive well nourished and well developed; Negative for cachectic, contractures or unkempt General Appearance ED: well developed and NAD; Negative for unkempt, cachectic or contractures Nutritional Appearance: Negative for cachectic HEENT Reports moist mucous membranes normocephalic and atraumatic; Negative for trauma or tenderness Eyes PERRL General Eye ED: Negative for other Neck full ROM and supple Thyroid: Negative for tender Lymph Lymphatic: Negative for other Chest Wall inspection of chest normal and palpation of chest normal Chest: Negative for other Resp normal respiratory effort, no retractions and clear to auscultation bilaterally Effort and Inspection: Negative for pain with movement Auscultation: Negative for rales, rhonchi or wheezes Cardio regular rate, regular rhythm, S1 normal heart sound, S2 normal heart sound and no murmurs Rate: Negative for bradycardia or tachycardic Rhythm: Negative for abnormal rhythm GI non-tender, non-distended and no masses Inspection: Negative for abdominal distention Auscultation: normoactive bowel sounds Palpation: soft; Negative for tender, guarding or rebound tenderness present Back/Spine no CVA tenderness General Back: Negative for CVA tenderness Cervical Spine: Negative for cervical spine tenderness Thoracic Spine / Upper Back: Negative for thoracic spinal tenderness Lumbar Spine / Lower Back: Negative for lumbar spinal tenderness Extremity Negative for normal to inspection or full ROM Extremity Narrative: Bilateral lower extremity contusions. Bruising from her right knee to her ankle. She is able to flex extend the knee. No gross bony deformity. She has some blood blisters on the right knee there is no signs of infection. No pus. No redness or warmth. No tenderness to the skin. She is able to flex extend both knees. She has a dressing on the left knee. Neuro oriented x3 and CN's II-XII intact bilaterally Sensorium / Orientation: alert, oriented to person, oriented to place and oriented to time; Negative for orientation impaired, confused, lethargic or stuporous Motor Exam: strength 5/5 throughout Psych mental status grossly normal Appearance: Negative for unkempt Speech: No other Mood & Affect: Negative for anxious Skin no wounds Skin Narrative: Bruising both lower extremities. Lesions: no lesions Rashes: no rashes MDM MDM MDM Narrative Medical decision making narrative: 83-year-old female lying Coumadin secondary to having A-fib. She fell about 2 weeks ago. And has bruising on the lower extremities. She was seen at the wound care center due to blood blisters on her right knee they wanted her eval uated. There is no signs of infection. She was x-rayed on the initial fall the knee x-rays were negative as was a CAT scan of her head. Screening labs will be obtained. Repeat exam patient doing well at 4:15 PM. We went over her test results. Her INR is actually coming down it was 5.3 the other day is 4.2 today. She is hold her Coumadin today and tomorrow I will have it rechecked. Repeat exam of her legs is unchanged. We also discussed her platelet count is just below normal. And her sodium is where she normally runs. She will follow-up as needed. History & Record Review Discussion w/independent historian: Patient and Family Additional record(s) reviewed:: Prior inpatient record, Prior outpatient record and Prior ED visit Lab Data Attestation: I reviewed the patient's lab results. Lab results narrative: CBC shows a white count of 5. H&H of 10.2 and 31.6 consistent with her baseline anemia. Platelets 146. She is on Coumadin her PTT is 40 her INR is 4.2. She had that another lab a day or 2 ago it was 5.3. She was recently on antibiotics. Electrolytes show sodium 129. Gap 6. BUN and creatinine 26 0.9. Glucose 107. I did review her most recent labs and imaging studies that were done here in the last several weeks. Labs: Laboratory Results - last 24 hr 05/05/24 14:55 WBC 5.3 RBC 3.63 L Hgb 10.2 L Hct 31.6 L MCV 87.1 MCH 28.1 MCHC 32.3 RDW Std Deviation 46.2 H RDW Coeff of Donn 14.6 Plt Count 146 L MPV 9.1 Immature Gran % (Auto) 0.400 Neut % (Auto) 62.6 Lymph % (Auto) 23.6 Weber % (Auto) 10.9 H Eos % (Auto) 1.9 Baso % (Auto) 0.6 Absolute Neuts (auto) 3.3 Absolute Lymphs (auto) 1.26 Nucleated RBC % 0 PT 40.1 H INR 4.2 H* Sodium 129 L Potassium 4.4 Chloride 95 L Carbon Dioxide 28.0 Anion Gap 6 BUN 26 H Creatinine 0.90 Estim Creat Clear Calc 41.24 Est GFR (MDRD) Af Amer 77 Est GFR (MDRD) Non-Af 64 BUN/Creatinine Ratio 29.0 H Glucose 107 H Calcium 9.4 Discharge Plan Triage Chief Complaint: Wound Check ED Provider: Satya Cruz Dx/Rx/DC Orders Clinical Impression: Hematoma, Chronic anticoagulation, History of atrial fibrillation, History of fall, Contusion of leg, right, Subtherapeutic anticoagulation, Chronic hyponatremia Instructions: ED Contusion, Lower Extremity Prescriptions: No Action docusate sodium [Stool Softener] 100 mg capsule 100 mg PO BID calcitriol 0.25 mcg capsule 0.25 mcg PO DAILY Rx Instructions: Take 1 capsule BID on MWF, 1 capsule daily all other days albuterol sulfate 90 mcg/actuation HFA aerosol inhaler 2 puff inhalation Q6H PRN (Reason: shortness of breath or wheezing) Patient Comments: inhale 2 puffs by mouth and INTO THE LUNGS every 6 hours if needed for wheezing Culturelle Kids Probiotics 5 billion cell tablet,chewable 1 tab PO DAILY PRN (Reason: probiotic) polyethylene glycol 3350 [Miralax] 17 gram/dose powder 17 g PO DAILY PRN (Reason: constipation) ibandronate 150 mg tablet 150 mg PO QMONTH ergocalciferol (vitamin D2) 1,250 mcg (50,000 unit) capsule 1,250 mcg PO QWEEK Centrum Silver 0.4 mg-300 mcg- 250 mcg tablet 1 tab PO DAILY cephalexin 500 mg capsule 500 mg PO BID Rx Instructions: for 10 days furosemide 40 mg tablet 40 mg PO BID warfarin 1 mg tablet 1 mg PO .COMPLEX Rx Instructions: coumadin 9 mg on Sunday, 6 mg rest. Managed by PCP Movantik 25 mg tablet 25 mg PO QAM PRN Rx Instructions: must be taken on empty stomach; no food 1 hr after or 2-3 hrs before dose hydrocodone-acetaminophen 5-325 mg tablet 1 tab PO TID PRN (Reason: Pain) ondansetron 4 mg tablet,disintegrating 4 mg PO Q6H PRN PRN (Reason: Nausea) Qty: 10 0RF potassium chloride 20 mEq tablet extended release 20 meq PO DAILY Qty: 90 3RF losartan 100 mg tablet 100 mg PO DAILY Qty: 90 3RF carvedilol 12.5 mg tablet 12.5 mg PO BID Qty: 180 3RF Rx Instructions: must administer with a meal/food Primary Care Provider: Rashad Peñaloza Referrals: Rashad Peñaloza MD [Primary Care Provider] - As Needed Activity Restrictions/Additional Instructions: The bruising and blistering of your legs will get better. This can take weeks or longer to resolve. There is nothing you need to do about the blistering. Your INR today your Coumadin level was still elevated 4.2 but is getting better. Hold your Coumadin today and tomorrow and have it rechecked on Sunday before you restart your Coumadin again. It needs to get back down around 2-2-1/2 to be restarted. Print Language: Lao Disposition Disposition: Home, Self Care
[2024-05-05 16:30] VITALS: BP 169/68; PULSE 62; RESP 18; TEMP 36.7; O2SAT 97
== END 2024-05-05 16:30 | disposition home or self-care (01) ==
PROVIDERS: Emergency Provider Emergency Medicine; PCP Family Medicine; Visit Provider Emergency Medicine
DX: S80.12XA Contusion of left lower leg, initial encounter (principal); I50.32 Chronic diastolic (congestive) heart failure; I48.91 Unspecified atrial fibrillation; I25.10 Atherosclerotic heart disease of native coronary artery without angina pectoris; E87.1 Hypo-osmolality and hyponatremia; Z79.01 Long term (current) use of anticoagulants; Z95.0 Presence of cardiac pacemaker; W19.XXXA Unspecified fall, initial encounter
CPT/HCPCS: 80048; 85025; 85610; 99283; A4216

== ENCOUNTER 2024-05-27 15:00 | Outpatient (RCR) | payer MEDICARE, SELFPAY ==
[2024-04-28 00:25] VITALS: BP 171/89; PULSE 70; RESP 18; TEMP 36.2; BMI 24.8
[2024-04-29 14:02] VITALS: BP 152/76; PULSE 78; RESP 16; TEMP 36.5; BMI 24.8
--- NOTE | 2024-04-29 17:51 | HP.PCM_ITS ---
History of Present Illness Date of Service: 04/29/24 Chief Complaint: Traumatic wound of the left lateral calf History of Wound: This is an 83-year-old female who has [facility] relative to a traumatic wound on the left lateral calf. The wound occurred as a result of an impact with an open car door. The wound occurred on April 04, 2024, and the patient was initially seen and evaluated in the emergency department at [facility] in [place], [place]. She was treated with a prescription for cephalexin 500 mg p.o. twice daily for total of 10 days, which was completed. She subsequently presented for evaluation and management at the [facility], where recent treatment has included the use of Aquacel, for protocol, and Tubigrips. The patient has multiple pre-existing medical problems, which are listed below. These include atrial fibrillation for which she is on systemic anticoagulation therapy with Coumadin. Approximately 12 hours prior to today's appointment, the patient experienced a fall, in which she sustained a traumatic wound to her left knee and left elbow. She presented to the emergency department at [facility] shortly thereafter, where the left elbow wound was bandaged, and a skin flap which was created by the trauma was secured over the wound using multiple Steri-Strips. It is also noted that a culture of the left lateral calf wound on April 16, 2024, was positive for Staphylococcus epidermidis, Corynebacterium amycolatum, Globacatella sulfidifaciens, and anaerobic cocci. As result, the patient was placed on oral linezolid and Flagyl, which she continues to take until the current time. She she remains on the oral courses of antibiotics, which are nearly completed. [facility] Medical History Non-pressure 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 layer exposed Open wound of knee Wound, open, elbow Traumatic open wound of left lower leg Osteoarthritis of both knees Chronic anemia GERD (gastroesophageal reflux disease) Atrial fibrillation Pneumonia Hyponatremia CAD (coronary artery disease) Pericardial effusion shelter current use of anticoagulant Hyperlipidemia Tear of biceps muscle Osteoarthrosis Diverticulitis Essential hypertension Nonrheumatic mitral valve regurgitation Pulmonary hypertension Diastolic congestive heart failure Longstanding persistent atrial fibrillation AV block, complete Home Medications ?Medication ?Instructions ?Recorded ?Last Taken ?Type docusate sodium 100 mg capsule 100 mg PO BID constipation 06/03/21 12/16/23 History (Stool Softener) albuterol sulfate 90 mcg/actuation 2 puff inhalation Q6H PRN 03/22/22 Unknown History aerosol inhaler shortness of breath or wheezing Lactobacillus rhamnosus GG 5 1 tab PO DAILY PRN probiotic 02/20/23 Unknown History billion cell chewable tablet (AM[employer] Food[employer] Probiotics) ondansetron 4 mg disintegrating 4 mg PO Q6H PRN PRN Nausea #10 tabs 08/17/23 12/16/23 Rx tablet ibandronate 150 mg tablet 150 mg PO QMONTH 01/07/24 Unknown History potassium chloride 20 mEq 20 meq PO DAILY #90 tabs 02/06/24 Unknown Rx tablet,extended release polyethylene glycol 3350 17 17 g PO DAILY PRN constipation 02/07/24 Unknown History gram/dose oral powder (Miralax) warfarin 1 mg tablet 1 mg PO .COMPLEX anticoagulation 02/07/24 Unknown History naloxegol 25 mg tablet (Movantik) 25 mg PO QAM PRN 02/18/24 Unknown History losartan 100 mg tablet 100 mg PO DAILY #90 tabs 03/04/24 Unknown Rx calcitriol 0.25 mcg capsule 0.25 mcg PO DAILY see mar 04/07/24 Unknown History cephalexin 500 mg capsule 500 mg PO BID 04/07/24 Unknown History ergocalciferol (vitamin D2) 1,250 1,250 mcg PO QWEEK 04/07/24 Unknown History mcg (50,000 unit) capsule furosemide 40 mg tablet 40 mg PO BID edema, shortness of 04/07/24 Unknown History breath hydrocodone-acetaminophen 5-325mg 1 tab PO TID PRN Pain 04/07/24 Unknown History 5mg-325mg sefyzvqk-owi-tsbpt acid 0.4 1 tab PO DAILY 04/07/24 Unknown History mg-lycopene 300 mcg-lutein 250 mcg tablet (Centrum Silver) carvedilol 12.5 mg tablet 12.5 mg PO BID htn #180 tabs 04/11/24 Unknown Rx Allergy/AdvReac Type Severity Reaction Status Date / Time Iodinated Contrast Media Allergy Rash Verified 04/28/24 21:28 (Iodinated Contrast- Oral and IV Dye) iodine Allergy Rash Verified 04/28/24 21:28 Penicillins (PCN) Allergy Rash Verified 04/28/24 21:28 ciprofloxacin (From Cipro) AdvReac Intermediate dizziness Verified 04/28/24 21:28 clindamycin AdvReac Intermediate nausea Verified 04/28/24 21:28 levofloxacin (From Levaquin) AdvReac Intermediate abdominal Verified 04/28/24 21:28 pain, nausea simvastatin AdvReac Intermediate Myalgias Verified 04/28/24 21:28 Family History Father , Age 82 CAD (coronary artery disease) Myocardial infarction CVA (cerebral vascular accident) Hypertension Mother , Age 94 Hypertension CVA (cerebral vascular accident) Sister Cancer Brother , Age 13 months from congenital heart defect Congenital heart defect Surgical History History of left heart catheterization (09/09/03) History of cardioversion (07/12/05) H/O colectomy History of bunionectomy History of appendectomy History of hysterectomy (1990) History of knee replacement (05/2018) History of tilt table evaluation (06/02/04) Hx of atrioventricular node ablation History of radiofrequency ablation procedure for cardiac arrhythmia Cardiac pacemaker in situ Social History household members: spouse Smoking Status: Never smoker alcohol intake: never substance use type: does not use caffeine: No Vital Signs Vital Signs Vital Signs: 04/29/24 14:02 Temperature 97.7 F L Temperature Source Temporal Pulse Rate 78 Respiratory Rate 16 Blood Pressure 152/76 H Blood Pressure Mean 101 Blood Pressure Source Monitor Blood Pressure Position Sitting Blood Pressure Location Right Arm Oxygen Delivery Method Room Air Weight Weight: 136 lb Body Mass Index (BMI) 24.8 Physical Exam Const alert, oriented x3, no apparent distress, average body habitus, no limitations and well nourished Constitutional Narrative: The patient's BMI is 24.9 General Appearance: cooperative, comfortable and well developed Orientation / Consciousness: awake, oriented to person, oriented to place and oriented to time Exam Limitations: no limitations HEENT normocephalic and head/scalp atraumatic Head and Scalp: normal to inspection, normocephalic and atraumatic Face and Sinus: normal facial exam Eyes EOMs intact bilaterally General Eye: normal appearance of both eyes Neck full ROM Resp normal respiratory effort, normal air movement, no retractions and no use of accessory muscles Effort and Inspection: able to speak in complete sentences Auscultation: clear to auscultation bilaterally Extremity General Extremity: normal exam except as noted Skin Wounds: wounds noted Wound Narrative: An open wound is noted on the left lateral calf. There is no obvious sign of infection or cellulitis. There is a moderate amount of bioburden and a small amount of nonviable tissue. Dimensions are documented elsewhere. There is also a new abrasion on the patient's left elbow. Dimensions are documented elsewhere. There appears to be an avulsion injury of the left knee, which was evaluated and treated in the emergency department approximately 10 hours ago. Multiple Steri-Strips are in place, reportedly in an effort to fix a dermal skin flap in place in anticipation that it will survive as a wound covering. A large ecchymosis is noted on the right knee, without a breach of skin integrity. Ecchymosis is also noted in the right pretibial area and on the left lateral calf. Neuro oriented x3, CN's II-XII intact bilaterally, moves all extremities, no focal motor deficits and no sensory deficits noted Sensorium / Orientation: awake, alert, oriented to person, oriented to place and oriented to time Psych Appearance: grossly normal Speech: normal speech Thought Content: normal thought content Judgement: judgement good Debridement Note Debridement Note Wound debrided: Left lateral calf wound Laterality: Left Type of Debridement: Excisional debridement Anesthesia Used: 5% Lidocaine Gel and Cetacaine Depth: Down to and including healthy tissue and in the subcutaneous layer Percentage of wound debrided: 100 Instrument Used: 5mm curette Tissue Removed: Bioburden and nonviable tissue Severity: Fat Layer Exposed Amount of bleeding with debridement: Mild Bleeding Controlled with: Compression and gauze Patient tolerated procedure: Patient tolerated procedure well Post-Debridement Measurements and Additional Note: Post-Debridement Measurements/Treatment - Nurse 1 - General Ulcer Assessment Start: 04/29/24 14:02 Freq: Status: Active Protocol: JAVAN Activity Type Activity Date Activity User E-sign Co-sign Detail Recorded Client Recorded Date Recorded By Document 04/29/24 14:02 [facility] 10.10.25.7 04/29/24 14:22 [facility] 04/29/24 14:02 - Today's Visit Information Type of service Follow-up Visit (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 ) Arrival Mode Ambulatory,Cane Transfer Assistance None Transfer Assist (Other) HUSB Patient Identification Verified (Name & Yes ) Height and Weight Body Mass Index (BMI) 24.8 BMI Classification Normal Vital Signs Temperature (97.8 F-99.1 F) 97.7 F L Temperature Source Temporal Pulse Rate (60-100) 78 Pulse Location Monitor Respiratory Rate (12-18) 16 Respiratory rate source Observation Oxygen Delivery Method Room Air Blood Pressure (90/60-120/80) 152/76 H Blood Pressure Mean 101 Source Monitor Position Sitting Blood Pressure Location Right Arm History Since Last Visit- (Skip if this is Patient's initial visit) Have you changed medications since your No last visit? Any new allergies or adverse reactions No Had a fall/change in ADL's that may No increase risk of falls Signs or symptoms of abuse and/or No neglect since last visit Have you been in the hospital since your Yes last visit? Has dressing in place as prescribed Yes Has compression in place as prescribed Yes Has offloadiing in place as prescribed N/A Experienced any changes in pain level or No management Left Footwear Diabetic Shoe Right Footwear Diabetic Shoe Pain Scale: 0-10 Numeric Is Patient Pain Free? Yes - Nurse 1 - General Ulcer Measurement Start: 04/29/24 14:02 Freq: Status: Active Protocol: Activity Type Activity Date Activity User E-sign Co-sign Detail Recorded Client Recorded Date Recorded By Document 04/29/24 14:02 [facility] 10.10.25.7 04/29/24 14:22 [facility] 04/29/24 14:02 Wound Center Nurse 1 #3- L KNEE SKIN TEAR POST FALL -Combined with other wound No -Current Size (cm) - Length 0.1 -Current Size (cm) - Width 0.1 -Current Size (cm) - Depth 0.1 -Total Square Cm 0.01 -Date of Last Picture (Recall this 04/29/24 field) -Photo Taken Yes -Exudate Amt Medium -Exudate Type Sanguineous -Texture ([place]-wound Skin Appearance) Assessed, Localized Edema -Moisture ([place]-wound Skin Appearance) Assessed -Color ([place]-wound Skin Appearance) Assessed, Ecchymosis, Erythema -Temperature ([place]-wound Skin No Abnormality Appearance) (Pt Warm) -Tenderness on Palpation ([place]-wound Yes Skin Appearance) -Wound Comment(s) STERIS LEFT INTACT. APPLIED PER ER LAST EVENING @ [facility] #3- LFA SKIN TEAR -Combined with other wound No -Current Size (cm) - Length 2.1 -Current Size (cm) - Width 2.5 -Current Size (cm) - Depth 0.1 -Total Square Cm 5.25 -Date of Last Picture (Recall this 04/29/24 field) -Photo Taken Yes -Epithelialization None Present -Tunneling No -Undermining/Tunneling No -Circular Undermining No -Exudate Amt Medium -Exudate Type Serosanguineous -Wound Margin Distinct, Outline Attached -Granulation Amt Large (67-100%) -Granulation Quality Red -Slough/Fibrin No -Necrosis Amt None Present (0 %) -Texture ([place]-wound Skin Appearance) Assessed -Moisture ([place]-wound Skin Appearance) Assessed -Color ([place]-wound Skin Appearance) Assessed, Ecchymosis, Erythema -Temperature ([place]-wound Skin No Abnormality Appearance) (Pt Warm) -Tenderness on Palpation ([place]-wound Yes Skin Appearance) -Ulcer Cleansing Soap and Water -Foul Odor after Cleansing No -Anesthetic Used 5% Lidocaine Gel #2 LT LAT LE -Combined with other wound No -Current Size (cm) - Length 4 -Current Size (cm) - Width 2.6 -Current Size (cm) - Depth 0.7 -Total Square Cm 10.4 -Date of Last Picture (Recall this 04/29/24 field) -Photo Taken Yes -Epithelialization Small 1-33% -Tunneling No -Undermining/Tunneling No -Circular Undermining No -Exudate Amt Large -Exudate Type Serosanguineous -Wound Margin Distinct, Outline Attached -Granulation Amt Medium (34-66%) -Granulation Quality Pale,[place] -Slough/Fibrin Yes -Necrosis Amt Medium (34-66%) -Necrotic Tissue Type Adherent Slough -Texture ([place]-wound Skin Appearance) Assessed, Localized Edema -Moisture ([place]-wound Skin Appearance) Assessed -Color ([place]-wound Skin Appearance) Assessed, Erythema -Temperature ([place]-wound Skin No Abnormality Appearance) (Pt Warm) -Tenderness on Palpation ([place]-wound Yes Skin Appearance) -Ulcer Cleansing Soap and Water -Foul Odor after Cleansing No -Anesthetic Used 5% Lidocaine Gel Left Calf (cm) 38.8 Left Ankle (cm) 21.9 WC - Nurse 2 - General Ulcer CM Notes Start: 04/29/24 14:02 Freq: Status: Active Protocol: Activity Type Activity Date Activity User E-sign Co-sign Detail Recorded Client Recorded Date Recorded By Document 04/29/24 14:34 [id number] [id number] 04/29/24 14:44 JF 04/29/24 14:34 Wound Center Nurse 2 #3- L KNEE SKIN TEAR POST FALL -Correct Patient No -Correct Side, Site, Position No -Correct Procedure No -Procedure Performed No -Wound/Ulcer Outcome Not Healed #3- LFA SKIN TEAR -Correct Patient No -Correct Side, Site, Position No -Correct Procedure No -Procedure Performed No -Wound/Ulcer Outcome Not Healed #2 LT LAT LE -Time 14:43 -Correct Patient Yes -Correct Side, Site, Position Yes -Correct Procedure Yes -Procedure Performed Yes -Type of Procedure Debridement -Clinical Debridement Subcutaneous -Tissue Removed Subcutaneous -Post Debridement (cm) - Length 4.1 -Post Debridement (cm) - Width 2.8 -Post Debridement (cm) - Depth 0.4 -Total Square (Post) (cm) 11.48 -Area of Debridement (cm) - Length 4.1 -Area of Debridement (cm) - Width 2.8 -Total Square (Area) (cm) 11.48 -Tunneling No -Undermining/Tunneling No -Circular Undermining No -Wound/Ulcer Outcome Not Healed -Ulcer Cleansing Rinsed/ Irrigated with Saline -Foul Odor after Cleansing No -Bioengineered Tissue No -Bleeding Controlled with Pressure -Treatment Response Procedure Tolerated Well -Offloading No -Debridement - Subq, 1st 20sq cm Yes Pain Scale: 0-10 Numeric Is Patient Pain Free? Yes WC - Nurse 3 - General Ulcer D/C NN Start: 04/29/24 14:02 Freq: Status: Active Protocol: Activity Type Activity Date Activity User E-sign Co-sign Detail Recorded Client Recorded Date Recorded By Document 04/29/24 14:59 KW z 04/29/24 15:01 KW Edit Result 04/29/24 14:59 KW (1) z 04/29/24 15:03 KW (1) #2 LT LAT LE - Aquacel Extra 1 => 2 04/29/24 14:59 Wound Care Center Nurse 3 #3- L KNEE SKIN TEAR POST FALL -Primary Dressing Covered/Secured with Dry Gauze & Roll Gauze, Secured with Tape #3- LFA SKIN TEAR -Primary Dressing Applied C Hydrogel ($), NonAdherent Contact Layer -Primary Dressing Covered/Secured with Dry Gauze & Roll Gauze, Secured with Tape #2 LT LAT LE -Primary Dressing Applied Aquacel Extra -Primary Dressing Covered/Secured with Dry Gauze & Roll Gauze, Secured with Tape -Aquacel Extra 2 Left -Tubular Bandage Single Layer -Size of Tubigrip Used Size E -Size E ($) 1 Pain Scale: 0-10 Numeric Is Patient Pain Free? Yes WC - Visit Discharge Discharge Condition Stable Ambulatory Status Ambulatory,Cane Transportation Private Auto Accompanied by Medication Reconcilliation completed & No provided to patient/care provider Clinical Summary of Care Provided Yes Charges/Coding Multi Select Codes Visit Charges Office Visit/Consults: 40075 OV L5 New 60min Integumentary Integumentary CPT Codes: 22670 Pili subq tissue 20 sq cm/< Assessment/Plan Assessment/Plan (1) Non-pressure 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 layer exposed: CODE(S): L97.222 - Non-pressure 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 layer exposed (2) Traumatic open wound of left lower leg: CODE(S): S81.802A - Unspecified open wound, left lower leg, initial encounter QUALIFIERS: Encounter type: initial encounter Qualified Code(s): S81.802A - Unspecified open wound, left lower leg, initial encounter (3) Wound, open, elbow: CODE(S): S51.009A - Unspecified open wound of unspecified elbow, initial encounter QUALIFIERS: Encounter type: initial encounter Laterality: left Qualified Code(s): S51.002A - Unspecified open wound of left elbow, initial encounter (4) Open wound of knee: CODE(S): S81.009A - Unspecified open wound, unspecified knee, initial encounter QUALIFIERS: Encounter type: initial encounter Laterality: left Qualified Code(s): S81.002A - Unspecified open wound, left knee, initial encounter (5) Current use of jail anticoagulation: CODE(S): Z79.01 - shelter (current) use of anticoagulants (6) Hammer toe of right foot: CODE(S): M20.41 - Other hammer toe(s) (acquired), right foot (7) Venous (peripheral) insufficiency: CODE(S): I87.2 - Venous insufficiency (chronic) (peripheral) (8) Atrial fibrillation: CODE(S): I48.91 - Unspecified atrial fibrillation (9) Shortness of breath: CODE(S): R06.02 - Shortness of breath (10) CAD (coronary artery disease): CODE(S): I25.10 - Atherosclerotic heart disease of [place] coronary artery without angina pectoris QUALIFIERS: Coronary Disease-Associated Artery/Lesion type: [place] artery [place] vs. transplanted heart: [place] heart Associated angina: without angina Qualified Code(s): I25.10 - Atherosclerotic heart disease of [place] coronary artery without angina pectoris (11) Essential hypertension: CODE(S): I10 - Essential (primary) hypertension (12) Cardiac pacemaker in situ: CODE(S): Z95.0 - Presence of cardiac pacemaker (13) AV block, complete: CODE(S): I44.2 - Atrioventricular block, complete (14) History of radiofrequency ablation procedure for cardiac arrhythmia: CODE(S): Z98.890 - Other specified postprocedural states (15) Hx of atrioventricular node ablation: CODE(S): Z98.890 - Other specified postprocedural states (16) Diastolic congestive heart failure: CODE(S): I50.30 - Unspecified diastolic (congestive) heart failure QUALIFIERS: Heart failure chronicity: chronic Qualified Code(s): I50.32 - Chronic diastolic (congestive) heart failure (17) Pulmonary hypertension: CODE(S): I27.20 - Pulmonary hypertension, unspecified (18) Nonrheumatic mitral valve regurgitation: CODE(S): I34.0 - Nonrheumatic mitral (valve) insufficiency (19) Hyperlipidemia: CODE(S): E78.5 - Hyperlipidemia, unspecified QUALIFIERS: Hyperlipidemia type: unspecified Qualified Code(s): E78.5 - Hyperlipidemia, unspecified (20) GERD (gastroesophageal reflux disease): CODE(S): K21.9 - Gastro-esophageal reflux disease without esophagitis (21) Chronic anemia: CODE(S): D64.9 - Anemia, unspecified (22) Osteoarthritis of both knees: CODE(S): M17.0 - Bilateral primary osteoarthritis of knee PLAN: Plan This is an 83-year-old female who has been recently prone to falls. She injured her left lateral calf on April 04, 2024, and has been recently managed in this regard at our facility. Debridement of the patient's left lateral calf wound has been performed today, and we are to continue the use of moistened Fibracol topically to this area on a daily basis. A Tubigrip is also to be applied daily to the left lower extremity. There has been recent injury to the left knee, with an apparent resulted large skin flap. Earlier today, while in the emergency department at [facility], Steri-Strips were used to secure the skin flap over the recent wound, in anticipation that the flap may provide suitable wound coverage. This is to be left in place until the patient's follow-up visit at the wound center, at which time this site will be reassessed. With respect to the abrasion of the left elbow, collagen hydrogel is to be provided to the patient and her , and is to be applied to the left elbow abrasion on a daily basis. The patient has been instructed to continue her course of oral antibiotics to completion. She is to follow-up in 1 week for reevaluation. Total time: 62 minutes
--- NOTE | 2024-04-30 09:53 | WC ---
PHOTO LEFT FOREARM 04/29/2024
--- NOTE | 2024-04-30 09:54 | WC ---
PHOTO LEFT LATERAL LE 04/29/2024
--- NOTE | 2024-04-30 09:56 | WC ---
PHOTO LEFT KNEE 04/29/2024
--- NOTE | 2024-05-02 11:58 | WC ---
Patient called with concerns with pain and blisters to her mouth and tongue. She is currently on [address] Casillas who ordered Clotrimazole 10mg PO dissolve in mouth 5x/day for 10 days. Patient was notified and order sent to [facility] in [place].
--- NOTE | 2024-05-05 08:38 | WC ---
Patient called this am concerned about her right knee having increased pain and has more blistering and feels like it has increase warmth to area. I advised patient to report to the ER since patient has had a change in status and this is a knee replacement area. Patient is scheduled to see Dr Casillas tomorrow on Sunday but she felt the pain was bad enough that she agreed to go to the ER.
[2024-05-06 14:57] VITALS: BP 172/91; PULSE 88; RESP 18; TEMP 36.3; BMI 24.8
--- NOTE | 2024-05-06 20:53 | PCM.WC.HP ---
History of Present Illness Date of Service: 05/06/24 Chief Complaint: Traumatic wound of the left lateral calf, left knee, and left elbow History of Wound: This is an 83-year-old female who has [facility] to a traumatic wound on the left lateral calf. The wound occurred as a result of an impact with an open car door. The wound occurred on April 04, 2024, and the patient was initially seen and evaluated in the emergency department at [facility] in [place], [place]. She was treated with a prescription for cephalexin 500 mg p.o. twice daily for total of 10 days, which was completed. She subsequently presented for evaluation and management at the [facility], where initial treatment included the use of Aquacel topically, and Tubigrips. The patient has multiple pre-existing medical problems, which are listed below. These include atrial fibrillation for which she is on systemic anticoagulation therapy with Coumadin. Once the patient at this facility, the patient subsequently experienced a fall on April 29, 2024, in which she sustained a traumatic wound to her left knee and left elbow. She presented to the emergency department at [facility] shortly thereafter, where the left elbow wound was bandaged, and a skin flap of the left knee was secured over the wound using multiple Steri-Strips. It is also noted that a culture of the left lateral calf wound on April 16, 2024, was positive for Staphylococcus epidermidis, Corynebacterium amycolatum, Globacatella sulfidifaciens, and anaerobic cocci. As result, the patient was placed on oral linezolid and Flagyl, which has been completed. [facility] Medical History Non-pressure 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 layer exposed Open wound of knee Wound, open, elbow Traumatic open wound of left lower leg Osteoarthritis of both knees Chronic anemia GERD (gastroesophageal reflux disease) Atrial fibrillation Pneumonia Hyponatremia CAD (coronary artery disease) Pericardial effusion skilled nursing current use of anticoagulant Hyperlipidemia Tear of biceps muscle Osteoarthrosis Diverticulitis Essential hypertension Nonrheumatic mitral valve regurgitation Pulmonary hypertension Diastolic congestive heart failure Longstanding persistent atrial fibrillation AV block, complete Home Medications ?Medication ?Instructions ?Recorded ?Last Taken ?Type docusate sodium 100 mg capsule 100 mg PO BID constipation 06/03/21 12/16/23 History (Stool Softener) albuterol sulfate 90 mcg/actuation 2 puff inhalation Q6H PRN 03/22/22 Unknown History aerosol inhaler shortness of breath or wheezing Lactobacillus rhamnosus GG 5 1 tab PO DAILY PRN probiotic 02/20/23 Unknown History billion cell chewable tablet ([employer] Probiotics) ondansetron 4 mg disintegrating 4 mg PO Q6H PRN PRN Nausea #10 tabs 08/17/23 12/16/23 Rx tablet ibandronate 150 mg tablet 150 mg PO QMONTH 01/07/24 Unknown History potassium chloride 20 mEq 20 meq PO DAILY #90 tabs 02/06/24 Unknown Rx tablet,extended release polyethylene glycol 3350 17 17 g PO DAILY PRN constipation 02/07/24 Unknown History gram/dose oral powder (Miralax) warfarin 1 mg tablet 1 mg PO .COMPLEX anticoagulation 02/07/24 Unknown History naloxegol 25 mg tablet (Movantik) 25 mg PO QAM PRN 02/18/24 Unknown History losartan 100 mg tablet 100 mg PO DAILY #90 tabs 03/04/24 Unknown Rx calcitriol 0.25 mcg capsule 0.25 mcg PO DAILY see mar 04/07/24 Unknown History cephalexin 500 mg capsule 500 mg PO BID 04/07/24 Unknown History ergocalciferol (vitamin D2) 1,250 1,250 mcg PO QWEEK 04/07/24 Unknown History mcg (50,000 unit) capsule furosemide 40 mg tablet 40 mg PO BID edema, shortness of 04/07/24 Unknown History breath hydrocodone-acetaminophen 5-325mg 1 tab PO TID PRN Pain 04/07/24 Unknown History 5mg-325mg knvvudeu-kzf-psspv acid 0.4 1 tab PO DAILY 04/07/24 Unknown History mg-lycopene 300 mcg-lutein 250 mcg tablet (Centrum Silver) carvedilol 12.5 mg tablet 12.5 mg PO BID htn #180 tabs 04/11/24 Unknown Rx Allergy/AdvReac Type Severity Reaction Status Date / Time Iodinated Contrast Media Allergy Rash Verified 05/05/24 13:29 (Iodinated Contrast- Oral and IV Dye) iodine Allergy Rash Verified 05/05/24 13:29 Penicillins (PCN) Allergy Rash Verified 05/05/24 13:29 ciprofloxacin (From Cipro) AdvReac Intermediate dizziness Verified 05/05/24 13:29 clindamycin AdvReac Intermediate nausea Verified 05/05/24 13:29 levofloxacin (From Levaquin) AdvReac Intermediate abdominal Verified 05/05/24 13:29 pain, nausea simvastatin AdvReac Intermediate Myalgias Verified 05/05/24 13:29 Family History Father , Age 82 CAD (coronary artery disease) Myocardial infarction CVA (cerebral vascular accident) Hypertension Mother , Age 94 Hypertension CVA (cerebral vascular accident) Sister Cancer Brother , Age 13 months from congenital heart defect Congenital heart defect Surgical History History of left heart catheterization (09/09/03) History of cardioversion (07/12/05) H/O colectomy History of bunionectomy History of appendectomy History of hysterectomy (1990) History of knee replacement (05/2018) History of tilt table evaluation (06/02/04) Hx of atrioventricular node ablation History of radiofrequency ablation procedure for cardiac arrhythmia Cardiac pacemaker in situ Social History household members: spouse Smoking Status: Never smoker alcohol intake: never substance use type: does not use caffeine: No Vital Signs Vital Signs Vital Signs: 05/06/24 14:57 Temperature 97.4 F L Temperature Source Temporal Pulse Rate 88 Respiratory Rate 18 Blood Pressure 172/91 H Blood Pressure Mean 118 Blood Pressure Source Monitor Blood Pressure Position Semi-Fowlers Blood Pressure Location Right Arm Oxygen Delivery Method Room Air Weight Weight: 136 lb Body Mass Index (BMI) 24.8 Physical Exam Const alert, oriented x3, no apparent distress, average body habitus, no limitations and well nourished Constitutional Narrative: The patient's BMI is 24.9 General Appearance: cooperative, comfortable and well developed Orientation / Consciousness: awake, oriented to person, oriented to place and oriented to time Exam Limitations: no limitations HEENT normocephalic and head/scalp atraumatic Head and Scalp: normal to inspection, normocephalic and atraumatic Face and Sinus: normal facial exam Eyes EOMs intact bilaterally General Eye: normal appearance of both eyes Neck full ROM Resp normal respiratory effort, normal air movement, no retractions and no use of accessory muscles Effort and Inspection: able to speak in complete sentences Auscultation: clear to auscultation bilaterally Extremity General Extremity: normal exam except as noted Skin Wounds: wounds noted Wound Narrative: An open wound is noted on the left lateral calf. There is no obvious sign of infection or cellulitis. There is a moderate amount of bioburden. Overall, this wound looks to be improving. Dimensions are documented elsewhere. There is also an abrasion on the patient's left elbow. Dimensions are documented elsewhere. There is no sign of infection or cellulitis. There appears to be an avulsion injury of the left knee, with a rather large skin flap at the site. A large number of Steri-Strips have been applied in the emergency department approximately 1 week ago, which had been left in place until today. Because the Steri-Strips obscured observation of the underlying wound, the Steri-Strips were gently removed today. It was seen that the skin flap remains, though darkened in color. There is uncertainty whether its appearance represents necrosis or simply a hematoma within the flap itself. The skin flap was left undisturbed, as it appears to be adherent, and may survive without necrosing. The site will be observed serially. Mild erythema is noted about the left knee wound, prompting a swab for aerobic and anaerobic bacterial culture. A large amount of ecchymosis is noted in the area of the right knee, without a breach of skin integrity. Three intact blisters are noted over the prepatellar area, which were left intact. Ecchymosis is also noted in the right pretibial area and on the left lateral calf. Neuro oriented x3, CN's II-XII intact bilaterally, moves all extremities, no focal motor deficits and no sensory deficits noted Sensorium / Orientation: awake, alert, oriented to person, oriented to place and oriented to time Psych Appearance: grossly normal Speech: normal speech Thought Content: normal thought content Judgement: judgement good Debridement Note Debridement Note Wound debrided: Left lateral calf wound Laterality: Left Type of Debridement: Excisional debridement Anesthesia Used: 5% Lidocaine Gel and Cetacaine Depth: Down to and including healthy tissue and in the subcutaneous layer Percentage of wound debrided: 100 Instrument Used: 5mm curette Tissue Removed: Bioburden and nonviable tissue Severity: Fat Layer Exposed Amount of bleeding with debridement: Mild Bleeding Controlled with: Compression and gauze Patient tolerated procedure: Patient tolerated procedure well Post-Debridement Measurements and Additional Note: Post-Debridement Measurements/Treatment - Nurse 1 - General Ulcer Assessment Start: 04/29/24 14:02 Freq: Status: Active Protocol: [email or web address].ENRIQUET Activity Type Activity Date Activity User E-sign Co-sign Detail Recorded Client Recorded Date Recorded By Document 04/29/24 14:02 [facility] [id number] 04/29/24 14:22 BM Document 05/06/24 14:57 KW l 05/06/24 15:14 KW 04/29/24 05/06/24 14:02 14:57 WC - Today's Visit Information Type of service Follow-up Visit Follow-up Visit (Physician/PARK WORKER (Physician/PARK WORKER ) ) Arrival Mode Ambulatory,Cane Ambulatory,Cane Transfer Assistance None Transfer Assist (Other) HUSB Accompanied by Patient Identification Verified (Name & Yes Yes ) Height and Weight Body Mass Index (BMI) 24.8 24.8 BMI Classification Normal Normal Vital Signs Temperature (97.8 F-99.1 F) 97.7 F L 97.4 F L Temperature Source Temporal Temporal Pulse Rate (60-100) 78 88 Pulse Location Monitor Monitor Respiratory Rate (12-18) 16 18 Respiratory rate source Observation Observation Oxygen Delivery Method Room Air Room Air Blood Pressure (90/60-120/80) 152/76 H 172/91 H Blood Pressure Mean 101 118 Source Monitor Monitor Position Sitting Semi-Fowlers Blood Pressure Location Right Arm Right Arm History Since Last Visit- (Skip if this is Patient's initial visit) Have you changed medications since your No No last visit? Any new allergies or adverse reactions No No Had a fall/change in ADL's that may No No increase risk of falls Signs or symptoms of abuse and/or No No neglect since last visit Have you been in the hospital since your Yes No last visit? Has dressing in place as prescribed Yes Yes Has compression in place as prescribed Yes Yes Has offloadiing in place as prescribed N/A N/A Experienced any changes in pain level or No No management Left Footwear Diabetic Shoe Regular Shoe Right Footwear Diabetic Shoe Regular Shoe Pain Scale: 0-10 Numeric Is Patient Pain Free? Yes Yes - Nurse 1 - General Ulcer Measurement Start: 04/29/24 14:02 Freq: Status: Active Protocol: Activity Type Activity Date Activity User E-sign Co-sign Detail Recorded Client Recorded Date Recorded By Document 04/29/24 14:02 [facility] [id number] 04/29/24 14:22 BM Document 05/06/24 14:57 KW l 05/06/24 15:14 KW 04/29/24 05/06/24 14:02 14:57 Wound Center Nurse 1 #3- L KNEE SKIN TEAR POST FALL -Combined with other wound No -Current Size (cm) - Length 0.1 0.1 -Current Size (cm) - Width 0.1 0.1 -Current Size (cm) - Depth 0.1 0.1 -Total Square Cm 0.01 0.01 -Date of Last Picture (Recall this 04/29/24 field) -Photo Taken Yes -Exudate Amt Medium None Present -Exudate Type Sanguineous -Texture (Nhung-wound Skin Appearance) Assessed, Assessed Localized Edema -Moisture ([place]-wound Skin Appearance) Assessed Assessed -Color ([place]-wound Skin Appearance) Assessed, Assessed Ecchymosis, Erythema -Temperature ([place]-wound Skin No Abnormality No Abnormality Appearance) (Pt Warm) (Pt Warm) -Tenderness on Palpation ([place]-wound Yes No Skin Appearance) -Ulcer Cleansing Rinsed/ Irrigated with Saline -Foul Odor after Cleansing No -Anesthetic Used 5% Lidocaine Gel -Wound Comment(s) STERIS LEFT STERI STRIPS INTACT. APPLIED INTACT PER ER LAST EVENING @ [facility] #3- LFA SKIN TEAR -Combined with other wound No -Current Size (cm) - Length 2.1 2 -Current Size (cm) - Width 2.5 2.5 -Current Size (cm) - Depth 0.1 0.1 -Total Square Cm 5.25 5.0 -Date of Last Picture (Recall this 04/29/24 field) -Photo Taken Yes -Epithelialization None Present -Tunneling No -Undermining/Tunneling No -Circular Undermining No -Exudate Amt Medium Small -Exudate Type Serosanguineous Serosanguineous -Wound Margin Distinct, Distinct, Outline Outline Attached Attached -Granulation Amt Large (67-100%) Large (67-100%) -Granulation Quality Red Red -Slough/Fibrin No -Necrosis Amt None Present (0 %) -Texture ([place]-wound Skin Appearance) Assessed Assessed -Moisture ([place]-wound Skin Appearance) Assessed Assessed -Color ([place]-wound Skin Appearance) Assessed, Assessed Ecchymosis, Erythema -Temperature ([place]-wound Skin No Abnormality No Abnormality Appearance) (Pt Warm) (Pt Warm) -Tenderness on Palpation ([place]-wound Yes No Skin Appearance) -Ulcer Cleansing Soap and Water Rinsed/ Irrigated with Saline -Foul Odor after Cleansing No No -Anesthetic Used 5% Lidocaine 5% Lidocaine Gel Gel #2 LT LAT LE -Combined with other wound No -Current Size (cm) - Length 4 4.2 -Current Size (cm) - Width 2.6 2.2 -Current Size (cm) - Depth 0.7 0.5 -Total Square Cm 10.4 9.24 -Date of Last Picture (Recall this 04/29/24 field) -Photo Taken Yes -Epithelialization Small 1-33% -Tunneling No -Undermining/Tunneling No -Circular Undermining No -Exudate Amt Large Medium -Exudate Type Serosanguineous Serosanguineous -Wound Margin Distinct, Distinct, Outline Outline Attached Attached -Granulation Amt Medium (34-66%) Small (1-33%) -Granulation Quality Pale,Blackey Red -Slough/Fibrin Yes -Necrosis Amt Medium (34-66%) Large (67-100%) -Necrotic Tissue Type Adherent Slough Adherent Slough -Texture ([place]hung-wound Skin Appearance) Assessed, Assessed Localized Edema -Moisture ([place]-wound Skin Appearance) Assessed Assessed -Color ([place]-wound Skin Appearance) Assessed, Assessed, Erythema Erythema -Temperature ([place]-wound Skin No Abnormality No Abnormality Appearance) (Pt Warm) (Pt Warm) -Tenderness on Palpation (Nhung-wound Yes No Skin Appearance) -Ulcer Cleansing Soap and Water Rinsed/ Irrigated with Saline -Foul Odor after Cleansing No No -Anesthetic Used 5% Lidocaine 5% Lidocaine Gel Gel Left Calf (cm) 38.8 Left Ankle (cm) 21.9 WC - Nurse 2 - General Ulcer CM Notes Start: 04/29/24 14:02 Freq: Status: Active Protocol: Activity Type Activity Date Activity User E-sign Co-sign Detail Recorded Client Recorded Date Recorded By Document 04/29/24 14:34 [id number] 04/29/24 14:44 Document 05/06/24 15:45 000 05/06/24 15:52 04/29/24 05/06/24 14:34 15:45 Wound Center Nurse 2 #3- L KNEE SKIN TEAR POST FALL -Time 15:48 -Correct Patient No Yes -Correct Side, Site, Position No Yes -Correct Procedure No Yes -Procedure Performed No Yes -Type of Procedure Debridement -Clinical Debridement Subcutaneous -Tissue Removed Subcutaneous -Post Debridement (cm) - Length 4.5 -Post Debridement (cm) - Width 3.5 -Post Debridement (cm) - Depth 0.1 -Total Square (Post) (cm) 15.75 -Area of Debridement (cm) - Length 4.5 -Area of Debridement (cm) - Width 3.5 -Total Square (Area) (cm) 15.75 -Tunneling No -Undermining/Tunneling No -Circular Undermining No -Wound/Ulcer Outcome Not Healed Not Healed -Ulcer Cleansing Rinsed/ Irrigated with Saline -Foul Odor after Cleansing No -Bioengineered Tissue No -Bleeding Controlled with Pressure -Treatment Response Procedure Tolerated Well -Offloading No -Debridement - Subq, 1st 20sq cm No #3- LFA SKIN TEAR -Time 15:46 -Correct Patient No Yes -Correct Side, Site, Position No Yes -Correct Procedure No Yes -Procedure Performed No Yes -Type of Procedure Debridement -Clinical Debridement Subcutaneous -Tissue Removed Subcutaneous -Post Debridement (cm) - Length 1.7 -Post Debridement (cm) - Width 2.2 -Post Debridement (cm) - Depth 0.1 -Total Square (Post) (cm) 3.74 -Area of Debridement (cm) - Length 1.7 -Area of Debridement (cm) - Width 2.2 -Total Square (Area) (cm) 3.74 -Tunneling No -Undermining/Tunneling No -Circular Undermining No -Wound/Ulcer Outcome Not Healed Not Healed -Bleeding Controlled with Pressure -Treatment Response Procedure Tolerated Well -Offloading No -Debridement - Subq, 1st 20sq cm No #2 LT LAT LE -Time 14:43 15:49 -Correct Patient Yes Yes -Correct Side, Site, Position Yes Yes -Correct Procedure Yes Yes -Procedure Performed Yes Yes -Type of Procedure Debridement Debridement -Clinical Debridement Subcutaneous Subcutaneous -Tissue Removed Subcutaneous Dermis -Post Debridement (cm) - Length 4.1 4 -Post Debridement (cm) - Width 2.8 2.4 -Post Debridement (cm) - Depth 0.4 0.3 -Total Square (Post) (cm) 11.48 9.6 -Area of Debridement (cm) - Length 4.1 4 -Area of Debridement (cm) - Width 2.8 2.4 -Total Square (Area) (cm) 11.48 9.6 -Tunneling No No -Undermining/Tunneling No No -Circular Undermining No No -Wound/Ulcer Outcome Not Healed Not Healed -Ulcer Cleansing Rinsed/ Rinsed/ Irrigated with Irrigated with Saline Saline -Foul Odor after Cleansing No No -Bioengineered Tissue No No -Bleeding Controlled with Pressure Pressure -Treatment Response Procedure Procedure Tolerated Well Tolerated Well -Offloading No No -Debridement - Subq, 1st 20sq cm Yes Yes -Debridement, SubQ, ea addt'l 20sq cm 1 or part thereof Pain Scale: 0-10 Numeric Is Patient Pain Free? Yes Yes WC - Nurse 3 - General Ulcer D/C NN Start: 04/29/24 14:02 Freq: Status: Active Protocol: Activity Type Activity Date Activity User E-sign Co-sign Detail Recorded Client Recorded Date Recorded By Document 04/29/24 14:59 KW z 04/29/24 15:01 KW Edit Result 04/29/24 14:59 KW (1) z 04/29/24 15:03 KW Document 05/06/24 16:18 DL 10.10.25.7 05/06/24 16:20 DL (1) #2 LT LAT LE - Aquacel Extra 1 => 2 04/29/24 05/06/24 14:59 16:18 Wound Care Center Nurse 3 #3- L KNEE SKIN TEAR POST FALL -Ulcer Cleansing Rinsed/ Irrigated with Saline -Foul Odor after Cleansing No -Primary Dressing Applied NonAdherent Contact Layer -Other Dressing ABD -Primary Dressing Covered/Secured with Dry Gauze & Dry Gauze,Dry Roll Gauze, Gauze & Roll Secured with Gauze Tape #3- LFA SKIN TEAR -Ulcer Cleansing Rinsed/ Irrigated with Saline -Foul Odor after Cleansing No -Primary Dressing Applied C Hydrogel ($), NonAdherent NonAdherent Contact Layer Contact Layer -Other Dressing hydrogel -Primary Dressing Covered/Secured with Dry Gauze & Dry Gauze & Roll Gauze, Roll Gauze, Secured with Secured with Tape Tape #2 LT LAT LE -Ulcer Cleansing Rinsed/ Irrigated with Saline -Foul Odor after Cleansing No -Primary Dressing Applied Aquacel Extra Aquacel Extra -Primary Dressing Covered/Secured with Dry Gauze & Dry Gauze & Roll Gauze, Roll Gauze, Secured with Secured with Tape Tape -Aquacel Extra 2 1 Left -Tubular Bandage Single Layer Single Layer -Size of Tubigrip Used Size E Size E -Size E ($) 1 2 Pain Scale: 0-10 Numeric Is Patient Pain Free? Yes Yes WC - Visit Discharge Discharge Condition Stable Stable Ambulatory Status Ambulatory,Cane Ambulatory, Walker Transportation Private Auto Private Auto Accompanied by Medication Reconcilliation completed & No provided to patient/care provider Clinical Summary of Care Provided Yes Additional Wound Wound debrided: Left knee wound Laterality: Left Type of Debridement: Excisional debridement Anesthesia Used: 5% Lidocaine Gel Depth: Down to and including healthy tissue and in the subcutaneous layer Percentage of wound debrided: 100 Instrument Used: 5mm curette Tissue Removed: Bioburden Severity: Fat Layer Exposed Amount of bleeding with debridement: Mild Bleeding Controlled with: Compression and gauze Patient tolerated procedure: Patient tolerated procedure well Additional Wound Wound debrided: Right elbow Laterality: Right Type of Debridement: Excisional debridement Anesthesia Used: 5% Lidocaine Gel Depth: Down to and including healthy tissue and in the subcutaneous layer Percentage of wound debrided: 100 Instrument Used: 5mm curette Tissue Removed: Bioburden Severity: Fat Layer Exposed Amount of bleeding with debridement: Mild Bleeding Controlled with: Compression and gauze Patient tolerated procedure: Patient tolerated procedure well Lab / Micro Data Labs: Laboratory Tests 05/05/24 14:55 WBC 5.3 Hgb 10.2 L Hct 31.6 L Plt Count 146 L INR 4.2 H* Sodium 129 L Potassium 4.4 Chloride 95 L BUN 26 H Creatinine 0.90 Glucose 107 H Calcium 9.4 Charges/Coding Procedures Integumentary 111xxx-113xx: [id number] Pili subq tissue 20 sq cm/< (14161) Assessment/Plan Assessment/Plan (1) Non-pressure 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 layer exposed: CODE(S): L97.222 - Non-pressure 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 layer exposed (2) Traumatic open wound of left lower leg: CODE(S): S81.802A - Unspecified open wound, left lower leg, initial encounter QUALIFIERS: Encounter type: subsequent encounter Qualified Code(s): S81.802D - Unspecified open wound, left lower leg, subsequent encounter (3) Wound, open, elbow: CODE(S): S51.009A - Unspecified open wound of unspecified elbow, initial encounter QUALIFIERS: Encounter type: subsequent encounter Laterality: left Qualified Code(s): S51.002D - Unspecified open wound of left elbow, subsequent encounter (4) Open wound of knee: CODE(S): S81.009A - Unspecified open wound, unspecified knee, initial encounter QUALIFIERS: Encounter type: initial encounter Laterality: left Qualified Code(s): S81.002A - Unspecified open wound, left knee, initial encounter (5) 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: CODE(S): Z79.01 - manager intermediate (current) use of anticoagulants (6) Hammer toe of right foot: CODE(S): M20.41 - Other hammer toe(s) (acquired), right foot (7) Venous (peripheral) insufficiency: CODE(S): I87.2 - Venous insufficiency (chronic) (peripheral) (8) Atrial fibrillation: CODE(S): I48.91 - Unspecified atrial fibrillation (9) Shortness of breath: CODE(S): R06.02 - Shortness of breath (10) CAD (coronary artery disease): CODE(S): I25.10 - Atherosclerotic heart disease of [place] coronary artery without angina pectoris QUALIFIERS: Coronary Disease-Associated Artery/Lesion type: [place] artery [place] vs. transplanted heart: [place] heart Associated angina: without angina Qualified Code(s): I25.10 - Atherosclerotic heart disease of [place] coronary artery without angina pectoris (11) Essential hypertension: CODE(S): I10 - Essential (primary) hypertension (12) Cardiac pacemaker in situ: CODE(S): Z95.0 - Presence of cardiac pacemaker (13) AV block, complete: CODE(S): I44.2 - Atrioventricular block, complete (14) History of radiofrequency ablation procedure for cardiac arrhythmia: CODE(S): Z98.890 - Other specified postprocedural states (15) Hx of atrioventricular node ablation: CODE(S): Z98.890 - Other specified postprocedural states (16) Diastolic congestive heart failure: CODE(S): I50.30 - Unspecified diastolic (congestive) heart failure QUALIFIERS: Heart failure chronicity: chronic Qualified Code(s): I50.32 - Chronic diastolic (congestive) heart failure (17) Pulmonary hypertension: CODE(S): I27.20 - Pulmonary hypertension, unspecified (18) Nonrheumatic mitral valve regurgitation: CODE(S): I34.0 - Nonrheumatic mitral (valve) insufficiency (19) Hyperlipidemia: CODE(S): E78.5 - Hyperlipidemia, unspecified QUALIFIERS: Hyperlipidemia type: unspecified Qualified Code(s): E78.5 - Hyperlipidemia, unspecified (20) GERD (gastroesophageal reflux disease): CODE(S): K21.9 - Gastro-esophageal reflux disease without esophagitis (21) Chronic anemia: CODE(S): D64.9 - Anemia, unspecified (22) Osteoarthritis of both knees: CODE(S): M17.0 - Bilateral primary osteoarthritis of knee PLAN: Plan This is an 83-year-old female who has been recently prone to falls. She injured her left lateral calf on April 04, 2024, and has been recently managed in this regard at our facility. Debridement of the patient's left lateral calf wound has been performed today, and we are to continue the use of moistened Aquacel Extra topically to this area on a daily basis. A Tubigrip is also to be applied daily to the left lower extremity. There has been recent injury to the left knee, with an apparent resulted large skin flap. The skin flap is darkened, though distinction between a hematoma and early necrosis is difficult. The area is to be left undisturbed, and dressed with Adaptic and dry gauze. With respect to the abrasion of the left elbow, collagen hydrogel has been provided to the patient and her , and is to be applied to the left elbow abrasion on a daily basis. She is to follow-up in 1 week for reevaluation. The results of the patient's left knee wound culture will be awaited. The patient is also aware of her elevated INR, and instructions as to Coumadin management has been provided to the patient by her other providers. In addition, the patient developed oral thrush, as result of her oral antibiotic regimen, and has been using clotrimazole losenges 10 mg 5 times a day for 10 days, with success. Total time: 28 minutes
--- NOTE | 2024-05-08 09:01 | WC ---
PHOTO 04/29/2024 LFA
--- NOTE | 2024-05-08 09:03 | WC ---
PHOTO 04/29/2024
--- NOTE | 2024-05-08 09:04 | WC ---
PHOTO 04/29/2024 LEFT LATERAL LE
--- NOTE | 2024-05-08 09:05 | WC ---
PHOTO 04/29/2024 LEFT KNEE
[2024-05-13 15:11] VITALS: BP 181/90; PULSE 85; RESP 18; TEMP 36.7; BMI 24.8
--- NOTE | 2024-05-14 18:25 | PCM.WC.HP ---
History of Present Illness Date of Service: 05/13/24 Chief Complaint: Traumatic wound of the left lateral calf, left knee, and left elbow History of Wound: This is an 83-year-old female who had [facility] to a traumatic wound on the left lateral calf. The wound occurred as a result of an impact with an open car door. The wound occurred on April 04, 2024, and the patient was initially seen and evaluated in the emergency department at [facility] in [place], [place]. She was treated with a prescription for cephalexin 500 mg p.o. twice daily for total of 10 days, which was completed. She subsequently presented for evaluation and management at the [facility], where initial treatment included the use of Aquacel topically, and Tubigrips. The patient has multiple pre-existing medical problems, which are listed below. These include atrial fibrillation for which she is on systemic anticoagulation therapy with Coumadin. During the course of the patient's treatment, the patient experienced a fall at home on April 29, 2024, in which she sustained a traumatic wound to her left knee and left elbow. She presented to the emergency department at [facility] shortly thereafter, where the left elbow wound was bandaged, and a skin flap of the left knee was secured over the wound using multiple Steri-Strips. It is also noted that a culture of the left lateral calf wound on April 16, 2024, was positive for Staphylococcus epidermidis, Corynebacterium amycolatum, Globacatella sulfidifaciens, and anaerobic cocci. As result, the patient was placed on oral linezolid and Flagyl, which has been completed. 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 Hyperlipidemia Tear of biceps muscle Osteoarthrosis Diverticulitis Essential hypertension Nonrheumatic mitral valve regurgitation Pulmonary hypertension Diastolic congestive heart failure Longstanding persistent atrial fibrillation AV block, complete Home Medications ?Medication ?Instructions ?Recorded ?Last Taken ?Type docusate sodium 100 mg capsule 100 mg PO BID constipation 06/03/21 12/16/23 History (Stool Softener) albuterol sulfate 90 mcg/actuation 2 puff inhalation Q6H PRN 03/22/22 Unknown History aerosol inhaler shortness of breath or wheezing Lactobacillus rhamnosus GG 5 1 tab PO DAILY PRN probiotic 02/20/23 Unknown History billion cell chewable tablet ([email or web address]) ondansetron 4 mg disintegrating 4 mg PO Q6H PRN PRN Nausea #10 tabs 08/17/23 12/16/23 Rx tablet ibandronate 150 mg tablet 150 mg PO QMONTH 01/07/24 Unknown History potassium chloride 20 mEq 20 meq PO DAILY #90 tabs 02/06/24 Unknown Rx tablet,extended release polyethylene glycol 3350 17 17 g PO DAILY PRN constipation 02/07/24 Unknown History gram/dose oral powder (Miralax) warfarin 1 mg tablet 1 mg PO .COMPLEX anticoagulation 02/07/24 Unknown History naloxegol 25 mg tablet (Movantik) 25 mg PO QAM PRN 02/18/24 Unknown History losartan 100 mg tablet 100 mg PO DAILY #90 tabs 03/04/24 Unknown Rx calcitriol 0.25 mcg capsule 0.25 mcg PO DAILY see mar 04/07/24 Unknown History cephalexin 500 mg capsule 500 mg PO BID 04/07/24 Unknown History ergocalciferol (vitamin D2) 1,250 1,250 mcg PO QWEEK 04/07/24 Unknown History mcg (50,000 unit) capsule furosemide 40 mg tablet 40 mg PO BID edema, shortness of 04/07/24 Unknown History breath hydrocodone-acetaminophen 5-325mg 1 tab PO TID PRN Pain 04/07/24 Unknown History 5mg-325mg ialgemcu-cfi-tlfei acid 0.4 1 tab PO DAILY 04/07/24 Unknown History mg-lycopene 300 mcg-lutein 250 mcg tablet (Centrum Silver) carvedilol 12.5 mg tablet 12.5 mg PO BID htn #180 tabs 04/11/24 Unknown Rx Allergy/AdvReac Type Severity Reaction Status Date / Time Iodinated Contrast Media Allergy Rash Verified 05/05/24 13:29 (Iodinated Contrast- Oral and IV Dye) iodine Allergy Rash Verified 05/05/24 13:29 Penicillins (PCN) Allergy Rash Verified 05/05/24 13:29 ciprofloxacin (From Cipro) AdvReac Intermediate dizziness Verified 05/05/24 13:29 clindamycin AdvReac Intermediate nausea Verified 05/05/24 13:29 levofloxacin (From Levaquin) AdvReac Intermediate abdominal Verified 05/05/24 13:29 pain, nausea simvastatin AdvReac Intermediate Myalgias Verified 05/05/24 13:29 Family History Father , Age 82 CAD (coronary artery disease) Myocardial infarction CVA (cerebral vascular accident) Hypertension Mother , Age 94 Hypertension CVA (cerebral vascular accident) Sister Cancer Brother , Age 13 months from congenital heart defect Congenital heart defect Surgical History History of left heart catheterization (09/09/03) History of cardioversion (07/12/05) H/O colectomy History of bunionectomy History of appendectomy History of hysterectomy (1990) History of knee replacement (05/2018) History of tilt table evaluation (06/02/04) Hx of atrioventricular node ablation History of radiofrequency ablation procedure for cardiac arrhythmia Cardiac pacemaker in situ Social History household members: spouse Smoking Status: Never smoker alcohol intake: never substance use type: does not use caffeine: No Vital Signs Vital Signs Vital Signs: Weight Weight: 136 lb Body Mass Index (BMI) 24.8 Physical Exam Const alert, oriented x3, no apparent distress, average body habitus, no limitations and well nourished Constitutional Narrative: The patient's BMI is 24.9 General Appearance: cooperative, comfortable and well developed Orientation / Consciousness: awake, oriented to person, oriented to place and oriented to time Exam Limitations: no limitations HEENT normocephalic and head/scalp atraumatic Head and Scalp: normal to inspection, normocephalic and atraumatic Face and Sinus: normal facial exam Eyes EOMs intact bilaterally General Eye: normal appearance of both eyes Neck full ROM Resp normal respiratory effort, normal air movement, no retractions and no use of accessory muscles Effort and Inspection: able to speak in complete sentences Auscultation: clear to auscultation bilaterally Extremity General Extremity: normal exam except as noted Skin Wounds: wounds noted Wound Narrative: An open wound is noted on the left lateral calf. There is no obvious sign of infection or cellulitis. There is a moderate amount of bioburden and nonviable tissue. Dimensions are documented elsewhere. There is also an abrasion on the patient's left elbow. Dimensions are documented elsewhere. There is no sign of infection or cellulitis. There is an avulsion injury on the left knee, which had been recently treated in the emergency department, at which time this skin flap had been repositioned over the wound with hope that the flap would remain viable. However, at this time, it is evident that the flap has necrosed, and the nonviable tissue remains atop the wound itself. Mild erythema had been noted at the site of this wound 1 week ago, and cultures obtained. The patient is to be treated with antibiotics appropriate to the recent culture results. A large amount of ecchymosis remains about the right knee, with several blisters, noticed last week, to have now ruptured. The nonviable epidermal remnants of these blisters remain. Hair: normal Neuro oriented x3, CN's II-XII intact bilaterally, moves all extremities, no focal motor deficits and no sensory deficits noted Sensorium / Orientation: awake, alert, oriented to person, oriented to place and oriented to time Psych Appearance: grossly normal Speech: normal speech Thought Content: normal thought content Judgement: judgement good Debridement Note Debridement Note Wound debrided: Left lateral calf wound Laterality: Left Type of Debridement: Excisional debridement Anesthesia Used: 5% Lidocaine Gel and Cetacaine Depth: Down to and including healthy tissue and in the subcutaneous layer Percentage of wound debrided: 100 Instrument Used: 5mm curette Tissue Removed: Bioburden and nonviable tissue Severity: Fat Layer Exposed Amount of bleeding with debridement: Mild Bleeding Controlled with: Compression and gauze Patient tolerated procedure: Patient tolerated procedure well Post-Debridement Measurements and Additional Note: Post-Debridement Measurements/Treatment PAULETTE - Nurse 1 - General Ulcer Assessment Start: 04/29/24 14:02 Freq: Status: Active Protocol: JAVAN Activity Type Activity Date Activity User E-sign Co-sign Detail Recorded Client Recorded Date Recorded By Document 04/29/24 14:02 [facility] [id number] 04/29/24 14:22 BM Document 07/09/24 14:57 KW l 05/06/24 15:14 KW Document 05/13/24 15:11 KW ; 05/13/24 15:28 KW 04/29/24 05/06/24 05/13/24 14:02 14:57 15:11 - Today's Visit Information Type of service Follow-up Visit Follow-up Visit Follow-up Visit (Physician/PHOTOGRAPHIC PROCESSOR (Physician/PHOTOGRAPHIC PROCESSOR (Physician/PHOTOGRAPHIC PROCESSOR ) ) ) Arrival Mode Ambulatory,Cane Ambulatory,Cane Ambulatory,Cane Transfer Assistance None Transfer Assist (Other) HUSB Accompanied by Patient Identification Verified (Name & Yes Yes Yes ) Height and Weight Body Mass Index (BMI) 24.8 24.8 24.8 BMI Classification Normal Normal Normal Vital Signs Temperature (97.8 F-99.1 F) 97.7 F L 97.4 F L 98.0 F Temperature Source Temporal Temporal Temporal Pulse Rate (60-100) 78 88 85 Pulse Location Monitor Monitor Monitor Respiratory Rate (12-18) 16 18 18 Respiratory rate source Observation Observation Observation Oxygen Delivery Method Room Air Room Air Room Air Blood Pressure (90/60-120/80) 152/76 H 172/91 H 181/90 H Blood Pressure Mean 101 118 120 Source Monitor Monitor Monitor Position Sitting Semi-Fowlers Semi-Fowlers Blood Pressure Location Right Arm Right Arm Left Arm History Since Last Visit- (Skip if this is Patient's initial visit) Have you changed medications since your No No No last visit? Any new allergies or adverse reactions No No No Had a fall/change in ADL's that may No No No increase risk of falls Signs or symptoms of abuse and/or No No No neglect since last visit Have you been in the hospital since your Yes No No last visit? Has dressing in place as prescribed Yes Yes Yes Has compression in place as prescribed Yes Yes Yes Has offloadiing in place as prescribed N/A N/A N/A Experienced any changes in pain level or No No No management Left Footwear Diabetic Shoe Regular Shoe Regular Shoe Right Footwear Diabetic Shoe Regular Shoe Regular Shoe Pain Scale: 0-10 Numeric Is Patient Pain Free? Yes Yes Yes - Nurse 1 - General Ulcer Measurement Start: 04/29/24 14:02 Freq: Status: Active Protocol: Activity Type Activity Date Activity User E-sign Co-sign Detail Recorded Client Recorded Date Recorded By Document 04/29/24 14:02 [facility] [id number] 04/29/24 14:22 BMF Document 05/06/24 14:57 KW l 05/06/24 15:14 KW Document 05/13/24 15:11 KW ; 05/13/24 15:28 KW 04/29/24 05/06/24 05/13/24 14:02 14:57 15:11 Wound Center Nurse 1 #3- L KNEE SKIN TEAR POST FALL -Combined with other wound No -Current Size (cm) - Length 0.1 0.1 6.3 -Current Size (cm) - Width 0.1 0.1 4.2 -Current Size (cm) - Depth 0.1 0.1 0.1 -Total Square Cm 0.01 0.01 26.46 -Date of Last Picture (Recall this 04/29/24 field) -Photo Taken Yes -Exudate Amt Medium None Present Small -Exudate Type Sanguineous Serosanguineous -Wound Margin Distinct, Outline Attached -Granulation Amt Small (1-33%) -Granulation Quality Red -Necrosis Amt Large (67-100%) -Necrotic Tissue Type Eschar -Texture (Nhung-wound Skin Appearance) Assessed, Assessed Assessed Localized Edema -Moisture (Nhung-wound Skin Appearance) Assessed Assessed Assessed -Color (Nhung-wound Skin Appearance) Assessed, Assessed Assessed Ecchymosis, Erythema -Temperature (Nhung-wound Skin No Abnormality No Abnormality No Abnormality Appearance) (Pt Warm) (Pt Warm) (Pt Warm) -Tenderness on Palpation (Nhung-wound Yes No Skin Appearance) -Ulcer Cleansing Rinsed/ Soap and Water Irrigated with Saline -Foul Odor after Cleansing No No -Anesthetic Used 5% Lidocaine 5% Lidocaine Gel Gel -Wound Comment(s) STERIS LEFT STERI STRIPS INTACT. APPLIED INTACT PER ER LAST EVENING @ [facility] #3- LFA SKIN TEAR -Combined with other wound No -Current Size (cm) - Length 2.1 2 2 -Current Size (cm) - Width 2.5 2.5 2.6 -Current Size (cm) - Depth 0.1 0.1 0.1 -Total Square Cm 5.25 5.0 5.2 -Date of Last Picture (Recall this 04/29/24 field) -Photo Taken Yes -Epithelialization None Present -Tunneling No -Undermining/Tunneling No -Circular Undermining No -Exudate Amt Medium Small Small -Exudate Type Serosanguineous Serosanguineous Serosanguineous -Wound Margin Distinct, Distinct, Distinct, Outline Outline Outline Attached Attached Attached -Granulation Amt Large (67-100%) Large (67-100%) Medium (34-66%) -Granulation Quality Red Red Red -Slough/Fibrin No -Necrosis Amt None Present (0 Medium (34-66%) %) -Necrotic Tissue Type Adherent Slough -Texture (Nhung-wound Skin Appearance) Assessed Assessed Assessed -Moisture (Nhung-wound Skin Appearance) Assessed Assessed Assessed -Color (Nhung-wound Skin Appearance) Assessed, Assessed Assessed, Ecchymosis, Erythema Erythema -Temperature (Nhung-wound Skin No Abnormality No Abnormality No Abnormality Appearance) (Pt Warm) (Pt Warm) (Pt Warm) -Tenderness on Palpation (Nhung-wound Yes No No Skin Appearance) -Ulcer Cleansing Soap and Water Rinsed/ Soap and Water Irrigated with Saline -Foul Odor after Cleansing No No No -Anesthetic Used 5% Lidocaine 5% Lidocaine 5% Lidocaine Gel Gel Gel #2 LT LAT LE -Combined with other wound No -Current Size (cm) - Length 4 4.2 3.6 -Current Size (cm) - Width 2.6 2.2 1.5 -Current Size (cm) - Depth 0.7 0.5 0.3 -Total Square Cm 10.4 9.24 5.40 -Date of Last Picture (Recall this 04/29/24 field) -Photo Taken Yes -Epithelialization Small 1-33% -Tunneling No -Undermining/Tunneling No -Circular Undermining No -Exudate Amt Large Medium Medium -Exudate Type Serosanguineous Serosanguineous Serosanguineous -Wound Margin Distinct, Distinct, Distinct, Outline Outline Outline Attached Attached Attached -Granulation Amt Medium (34-66%) Small (1-33%) Small (1-33%) -Granulation Quality Pale,[place] -Slough/Fibrin Yes -Necrosis Amt Medium (34-66%) Large (67-100%) Large (67-100%) -Necrotic Tissue Type Adherent Slough Adherent Slough Adherent Slough -Texture (Nhung-wound Skin Appearance) Assessed, Assessed Assessed Localized Edema -Moisture (Nhung-wound Skin Appearance) Assessed Assessed Assessed -Color (Nhung-wound Skin Appearance) Assessed, Assessed, Assessed Erythema Erythema -Temperature (Nhung-wound Skin No Abnormality No Abnormality No Abnormality Appearance) (Pt Warm) (Pt Warm) (Pt Warm) -Tenderness on Palpation (Nhung-wound Yes No No Skin Appearance) -Ulcer Cleansing Soap and Water Rinsed/ Soap and Water Irrigated with Saline -Foul Odor after Cleansing No No No -Anesthetic Used 5% Lidocaine 5% Lidocaine 5% Lidocaine Gel Gel Gel Right Calf (cm) 34 Right Ankle (cm) 21.6 Left Calf (cm) 38.8 Left Ankle (cm) 21.9 WC - Nurse 2 - General Ulcer CM Notes Start: 04/29/24 14:02 Freq: Status: Active Protocol: Activity Type Activity Date Activity User E-sign Co-sign Detail Recorded Client Recorded Date Recorded By Document 04/29/24 14:34 [id number] 04/29/24 14:44 Document 05/06/24 15:45 JF 000 05/06/24 15:52 Document 05/13/24 15:39 DS 1 05/13/24 15:54 DS Edit Result 05/13/24 15:39 DS (1) 1 05/13/24 15:57 DS (1) #4 right knee cluster - Correct Patient => No - Correct Side, Site, Position => No - Correct Procedure => No - Procedure Performed => No - Wound/Ulcer Outcome => Not Healed 04/29/24 05/06/24 05/13/24 14:34 15:45 15:39 Wound Center Nurse 2 #4 right knee cluster -Correct Patient No -Correct Side, Site, Position No -Correct Procedure No -Procedure Performed No -Wound/Ulcer Outcome Not Healed #3- L KNEE SKIN TEAR POST FALL -Time 15:48 15:39 -Correct Patient No Yes Yes -Correct Side, Site, Position No Yes Yes -Correct Procedure No Yes Yes -Procedure Performed No Yes Yes -Type of Procedure Debridement Debridement -Clinical Debridement Subcutaneous Subcutaneous -Tissue Removed Subcutaneous Subcutaneous -Post Debridement (cm) - Length 4.5 4.8 -Post Debridement (cm) - Width 3.5 3.2 -Post Debridement (cm) - Depth 0.1 0.1 -Total Square (Post) (cm) 15.75 15.36 -Area of Debridement (cm) - Length 4.5 4.8 -Area of Debridement (cm) - Width 3.5 3.2 -Total Square (Area) (cm) 15.75 15.36 -Tunneling No No -Undermining/Tunneling No No -Circular Undermining No No -Wound/Ulcer Outcome Not Healed Not Healed Not Healed -Ulcer Cleansing Rinsed/ Irrigated with Saline -Foul Odor after Cleansing No -Bioengineered Tissue No -Bleeding Controlled with Pressure Pressure -Treatment Response Procedure Procedure Tolerated Well Tolerated Well -Offloading No -Debridement - Subq, 1st 20sq cm No Yes #3- LFA SKIN TEAR -Time 15:46 15:39 -Correct Patient No Yes Yes -Correct Side, Site, Position No Yes Yes -Correct Procedure No Yes Yes -Procedure Performed No Yes Yes -Type of Procedure Debridement Debridement -Clinical Debridement Subcutaneous Subcutaneous -Tissue Removed Subcutaneous Subcutaneous -Post Debridement (cm) - Length 1.7 1.7 -Post Debridement (cm) - Width 2.2 1.5 -Post Debridement (cm) - Depth 0.1 0.1 -Total Square (Post) (cm) 3.74 2.55 -Area of Debridement (cm) - Length 1.7 1.7 -Area of Debridement (cm) - Width 2.2 1.5 -Total Square (Area) (cm) 3.74 2.55 -Tunneling No No -Undermining/Tunneling No No -Circular Undermining No No -Wound/Ulcer Outcome Not Healed Not Healed Not Healed -Bleeding Controlled with Pressure Pressure -Treatment Response Procedure Procedure Tolerated Well Tolerated Well -Offloading No -Debridement - Subq, 1st 20sq cm No No #2 LT LAT LE -Time 14:43 15:49 15:39 -Correct Patient Yes Yes Yes -Correct Side, Site, Position Yes Yes Yes -Correct Procedure Yes Yes Yes -Procedure Performed Yes Yes Yes -Type of Procedure Debridement Debridement Debridement -Clinical Debridement Subcutaneous Subcutaneous Subcutaneous -Tissue Removed Subcutaneous Dermis Subcutaneous -Post Debridement (cm) - Length 4.1 4 3.5 -Post Debridement (cm) - Width 2.8 2.4 1.6 -Post Debridement (cm) - Depth 0.4 0.3 0.7 -Total Square (Post) (cm) 11.48 9.6 5.60 -Area of Debridement (cm) - Length 4.1 4 3.5 -Area of Debridement (cm) - Width 2.8 2.4 1.6 -Total Square (Area) (cm) 11.48 9.6 5.60 -Tunneling No No No -Undermining/Tunneling No No No -Circular Undermining No No No -Wound/Ulcer Outcome Not Healed Not Healed Not Healed -Ulcer Cleansing Rinsed/ Rinsed/ Irrigated with Irrigated with Saline Saline -Foul Odor after Cleansing No No -Bioengineered Tissue No No -Bleeding Controlled with Pressure Pressure Pressure -Treatment Response Procedure Procedure Procedure Tolerated Well Tolerated Well Tolerated Well -Offloading No No -Debridement - Subq, 1st 20sq cm Yes Yes Yes -Debridement, SubQ, ea addt'l 20sq cm 1 or part thereof Pain Scale: 0-10 Numeric Is Patient Pain Free? Yes Yes No left knee -Description Sharp,Aching -Intensity 5 -Duration (hours) Acute -Pain Behavior Moaning -Pain Aggravating Factors Debridement -Alleviating Factors/Interventions Will continue to monitor, Emotional Support WC - Nurse 3 - General Ulcer D/C NN Start: 04/29/24 14:02 Freq: Status: Active Protocol: Activity Type Activity Date Activity User E-sign Co-sign Detail Recorded Client Recorded Date Recorded By Document 04/29/24 14:59 KW z 04/29/24 15:01 KW Edit Result 04/29/24 14:59 KW (1) z 04/29/24 15:03 KW Document 05/06/24 16:18 DL 10.10.25.7 05/06/24 16:20 DL Document 05/13/24 16:18 KW ; 05/13/24 16:20 KW (1) #2 LT LAT LE - Aquacel Extra 1 => 2 04/29/24 05/06/24 05/13/24 14:59 16:18 16:18 Wound Care Center Nurse 3 #4 right knee cluster -Ulcer Cleansing Rinsed/ Irrigated with Saline -Primary Dressing Applied C Hydrogel ($) -Primary Dressing Covered/Secured with Dry Gauze,Dry Gauze & Roll Gauze,Secured with Tape #3- L KNEE SKIN TEAR POST FALL -Ulcer Cleansing Rinsed/ Irrigated with Saline -Foul Odor after Cleansing No -Primary Dressing Applied NonAdherent Contact Layer -Other Dressing ABD HYDROGEL -Primary Dressing Covered/Secured with Dry Gauze & Dry Gauze,Dry Dry Gauze,Dry Roll Gauze, Gauze & Roll Gauze & Roll Secured with Gauze Gauze,Secured Tape with Tape #3- LFA SKIN TEAR -Ulcer Cleansing Rinsed/ Irrigated with Saline -Foul Odor after Cleansing No -Primary Dressing Applied C Hydrogel ($), NonAdherent NonAdherent Contact Layer Contact Layer -Other Dressing hydrogel HYDROGEL -Primary Dressing Covered/Secured with Dry Gauze & Dry Gauze & Dry Gauze,Dry Roll Gauze, Roll Gauze, Gauze & Roll Secured with Secured with Gauze,Secured Tape Tape with Tape #2 LT LAT LE -Ulcer Cleansing Rinsed/ Irrigated with Saline -Foul Odor after Cleansing No -Primary Dressing Applied Aquacel Extra Aquacel Extra -Other Dressing HYDROGEL -Primary Dressing Covered/Secured with Dry Gauze & Dry Gauze & Dry Gauze,Dry Roll Gauze, Roll Gauze, Gauze & Roll Secured with Secured with Gauze,Secured Tape Tape with Tape -Aquacel Extra 2 1 Left -Tubular Bandage Single Layer Single Layer -Size of Tubigrip Used Size E Size E -Size E ($) 1 2 -Other RAMA Treatment Response Procedure Tolerated Well Pain Scale: 0-10 Numeric Is Patient Pain Free? Yes Yes No left knee -Description Aching -Intensity 5 -Duration (hours) Chronic -Pain Behavior Guarding -Pain Aggravating Factors Exercise/ Activity -Alleviating Factors/Interventions Medication -Effectiveness of Alleviating Factor/ Moderately Intervention effective WC - Visit Discharge Discharge Condition Stable Stable Stable Ambulatory Status Ambulatory,Cane Ambulatory, Ambulatory,Cane Walker Transportation Private Auto Private Auto Private Auto Accompanied by Medication Reconcilliation completed & No No provided to patient/care provider Clinical Summary of Care Provided Yes Yes Additional Wound Wound debrided: Left knee wound Laterality: Left Type of Debridement: Excisional debridement Anesthesia Used: 5% Lidocaine Gel Depth: Down to and including healthy tissue and in the subcutaneous layer Percentage of wound debrided: 100 Instrument Used: 5mm curette, Forceps and - (Scissors) Tissue Removed: Bioburden and deviutalized tissue remaining from necrosed skin flap Severity: Fat Layer Exposed Amount of bleeding with debridement: Mild Bleeding Controlled with: Compression and gauze Patient tolerated procedure: Patient tolerated procedure well Additional Wound Wound debrided: Left elbow Laterality: Left Type of Debridement: Excisional debridement Anesthesia Used: 5% Lidocaine Gel Depth: Down to and including healthy tissue and in the subcutaneous layer Percentage of wound debrided: 100 Instrument Used: 5mm curette Tissue Removed: Bioburden Severity: Fat Layer Exposed Amount of bleeding with debridement: Mild Bleeding Controlled with: Compression and gauze Patient tolerated procedure: Patient tolerated procedure well Additional Wound Wound debrided: Right knee Laterality: Right Type of Debridement: Excisional debridement Anesthesia Used: 5% Lidocaine Gel Depth: Down to and including healthy tissue and in the subcutaneous layer Percentage of wound debrided: 100 Instrument Used: Forceps and - (Scissors) Severity: Fat Layer Exposed Amount of bleeding with debridement: Mild Bleeding Controlled with: Compression and gauze Patient tolerated procedure: Patient tolerated procedure well Lab / Micro Data Micro: Microbiology 05/06/24 15:45 Ulcer, Decubitus - Knee Gram Stain - Final 05/06/24 15:45 Ulcer, Decubitus - Knee Wound Culture - Final Pseudomonas aeruginosa 05/06/24 15:45 Ulcer, Decubitus - Knee Anaerobic Culture - Final No anaerobic bacteria isolated. Charges/Coding Multi Select Codes Integumentary Integumentary CPT Codes: 72402 Pili subq tissue 20 sq cm/< (97612 - Right knee; 87506 - left elbow; 25071 X 2 - left leg (left knee and left lateral calf)) Assessment/Plan Assessment/Plan (1) Non-pressure 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 layer exposed: CODE(S): L97.222 - Non-pressure 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 layer exposed (2) Traumatic open wound of left lower leg: CODE(S): S81.802A - Unspecified open wound, left lower leg, initial encounter QUALIFIERS: Encounter type: subsequent encounter Qualified Code(s): S81.802D - Unspecified open wound, left lower leg, subsequent encounter (3) Wound, open, elbow: CODE(S): S51.009A - Unspecified open wound of unspecified elbow, initial encounter QUALIFIERS: Encounter type: subsequent encounter Laterality: left Qualified Code(s): S51.002D - Unspecified open wound of left elbow, subsequent encounter (4) Open wound of knee: CODE(S): S81.009A - Unspecified open wound, unspecified knee, initial encounter QUALIFIERS: Encounter type: subsequent encounter Laterality: left Qualified Code(s): S81.002D - Unspecified open wound, left knee, subsequent encounter (5) 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: CODE(S): Z79.01 - superintendent terminal (current) use of anticoagulants (6) Hammer toe of right foot: CODE(S): M20.41 - Other hammer toe(s) (acquired), right foot (7) Venous (peripheral) insufficiency: CODE(S): I87.2 - Venous insufficiency (chronic) (peripheral) (8) Atrial fibrillation: CODE(S): I48.91 - Unspecified atrial fibrillation (9) Shortness of breath: CODE(S): R06.02 - Shortness of breath (10) CAD (coronary artery disease): CODE(S): I25.10 - Atherosclerotic heart disease of [place] coronary artery without angina pectoris QUALIFIERS: Coronary Disease-Associated Artery/Lesion type: [place] artery [place] vs. transplanted heart: [place] heart Associated angina: without angina Qualified Code(s): I25.10 - Atherosclerotic heart disease of [place] coronary artery without angina pectoris (11) Essential hypertension: CODE(S): I10 - Essential (primary) hypertension (12) Cardiac pacemaker in situ: CODE(S): Z95.0 - Presence of cardiac pacemaker (13) AV block, complete: CODE(S): I44.2 - Atrioventricular block, complete (14) History of radiofrequency ablation procedure for cardiac arrhythmia: CODE(S): Z98.890 - Other specified postprocedural states (15) Hx of atrioventricular node ablation: CODE(S): Z98.890 - Other specified postprocedural states (16) Diastolic congestive heart failure: CODE(S): I50.30 - Unspecified diastolic (congestive) heart failure QUALIFIERS: Heart failure chronicity: chronic Qualified Code(s): I50.32 - Chronic diastolic (congestive) heart failure (17) Pulmonary hypertension: CODE(S): I27.20 - Pulmonary hypertension, unspecified (18) Nonrheumatic mitral valve regurgitation: CODE(S): I34.0 - Nonrheumatic mitral (valve) insufficiency (19) Hyperlipidemia: CODE(S): E78.5 - Hyperlipidemia, unspecified QUALIFIERS: Hyperlipidemia type: unspecified Qualified Code(s): E78.5 - Hyperlipidemia, unspecified (20) GERD (gastroesophageal reflux disease): CODE(S): K21.9 - Gastro-esophageal reflux disease without esophagitis (21) Chronic anemia: CODE(S): D64.9 - Anemia, unspecified (22) Osteoarthritis of both knees: CODE(S): M17.0 - Bilateral primary osteoarthritis of knee PLAN: Plan This is an 83-year-old female who has been recently prone to falls. She injured her left lateral calf on April 04, 2024, and has been recently managed in this regard at our facility. Debridement of the patient's left lateral calf wound has been performed today. Because of the appearance of increasing amounts of necrotic and nonviable tissue within the wound, we are to implement the use of collagenase Santyl, which will be used topically on a daily basis. The patient has been instructed in the appropriate means of application. A prescription and coupon have been provided. A Tubigrip is also to be applied daily to the left lower extremity. A debridement has been performed at the site of the left knee wound, removing a large amount of nonviable and necrotic tissue, which had been a flap repositioned following an avulsion injury. As expected, the flap failed to remain viable, and its remains have been removed today. The patient is to use collagen hydrogel topically to the area on a daily basis. Collagen hydrogel is also to be used topically on the left elbow wound and on the remnants of the blisters on the right knee, which have ruptured, and now are represented by a small clustered ulceration. A prescription has been provided to the patient for Cipro 500 mg p.o. twice daily for total of 10 days. This is in treatment for the Pseudomonas aeruginosa which was cultured 1 week ago. The patient is to follow-up in 1 week for reevaluation. Total time: 26 minutes
[2024-05-20 14:41] VITALS: BP 167/68; PULSE 61; RESP 18; TEMP 36.1; BMI 24.8
--- NOTE | 2024-05-21 12:06 | PCM.WC.HP ---
History of Present Illness Date of Service: 05/20/24 Chief Complaint: Traumatic wound of the left lateral calf, left knee, and left elbow History of Wound: This is an 83-year-old female who had [facility] to a traumatic wound on the left lateral calf. The wound occurred as a result of an impact with an open car door. The wound occurred on April 04, 2024, and the patient was initially seen and evaluated in the emergency department at [facility] in [place], [place]. She was treated with a prescription for cephalexin 500 mg p.o. twice daily for total of 10 days, which was completed. She subsequently presented for evaluation and management at the [facility], where initial treatment included the use of Aquacel topically, and Tubigrips. The patient has multiple pre-existing medical problems, which are listed below. These include atrial fibrillation for which she is on systemic anticoagulation therapy with Coumadin. During the course of the patient's treatment, the patient experienced a fall at home on April 29, 2024, in which she sustained a traumatic wound to her left knee and left elbow. She presented to the Emergency Department at [facility] shortly thereafter, where the left elbow wound was bandaged, and a skin flap of the left knee was secured over the wound using multiple Steri-Strips. It is also noted that a culture of the left lateral calf wound on April 16, 2024, was positive for Staphylococcus epidermidis, Corynebacterium amycolatum, Globacatella sulfidifaciens, and anaerobic cocci. As result, the patient was placed on oral linezolid and Flagyl, which was completed. [facility] Medical History (Updated 05/21/24 @ 12:[address] Kelvin Casillas MD) Open wound of knee Non-pressure 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 layer exposed Open wound of knee Wound, open, elbow Traumatic open wound of left lower leg Osteoarthritis of both knees Chronic anemia GERD (gastroesophageal reflux disease) Atrial fibrillation Pneumonia Hyponatremia CAD (coronary artery disease) Pericardial effusion long-term current use of anticoagulant Hyperlipidemia Tear of biceps muscle Osteoarthrosis Diverticulitis Essential hypertension Nonrheumatic mitral valve regurgitation Pulmonary hypertension Diastolic congestive heart failure Longstanding persistent atrial fibrillation AV block, complete Home Medications ?Medication ?Instructions ?Recorded ?Last Taken ?Type docusate sodium 100 mg capsule 100 mg PO BID constipation 06/03/21 12/16/23 History (Stool Softener) albuterol sulfate 90 mcg/actuation 2 puff inhalation Q6H PRN 03/22/22 Unknown History aerosol inhaler shortness of breath or wheezing Lactobacillus rhamnosus GG 5 1 tab PO DAILY PRN probiotic 02/20/23 Unknown History billion cell chewable tablet ([employer] Probiotics) ondansetron 4 mg disintegrating 4 mg PO Q6H PRN PRN Nausea #10 tabs 08/17/23 12/16/23 Rx tablet ibandronate 150 mg tablet 150 mg PO QMONTH 01/07/24 Unknown History potassium chloride 20 mEq 20 meq PO DAILY #90 tabs 02/06/24 Unknown Rx tablet,extended release polyethylene glycol 3350 17 17 g PO DAILY PRN constipation 02/07/24 Unknown History gram/dose oral powder (Miralax) warfarin 1 mg tablet 1 mg PO .COMPLEX anticoagulation 02/07/24 Unknown History naloxegol 25 mg tablet (Movantik) 25 mg PO QAM PRN 02/18/24 Unknown History losartan 100 mg tablet 100 mg PO DAILY #90 tabs 03/04/24 Unknown Rx calcitriol 0.25 mcg capsule 0.25 mcg PO DAILY see mar 04/07/24 Unknown History cephalexin 500 mg capsule 500 mg PO BID 04/07/24 Unknown History ergocalciferol (vitamin D2) 1,250 1,250 mcg PO QWEEK 04/07/24 Unknown History mcg (50,000 unit) capsule furosemide 40 mg tablet 40 mg PO BID edema, shortness of 04/07/24 Unknown History breath hydrocodone-acetaminophen 5-325mg 1 tab PO TID PRN Pain 04/07/24 Unknown History 5mg-325mg qzziiovm-dub-geeki acid 0.4 1 tab PO DAILY 04/07/24 Unknown History mg-lycopene 300 mcg-lutein 250 mcg tablet (Centrum Silver) carvedilol 12.5 mg tablet 12.5 mg PO BID htn #180 tabs 04/11/24 Unknown Rx Allergy/AdvReac Type Severity Reaction Status Date / Time Iodinated Contrast Media Allergy Rash Verified 05/05/24 13:29 (Iodinated Contrast- Oral and IV Dye) iodine Allergy Rash Verified 05/05/24 13:29 Penicillins (PCN) Allergy Rash Verified 05/05/24 13:29 ciprofloxacin (From Cipro) AdvReac Intermediate dizziness Verified 05/05/24 13:29 clindamycin AdvReac Intermediate nausea Verified 05/05/24 13:29 levofloxacin (From Levaquin) AdvReac Intermediate abdominal Verified 05/05/24 13:29 pain, nausea simvastatin AdvReac Intermediate Myalgias Verified 05/05/24 13:29 Family History Father , Age 82 CAD (coronary artery disease) Myocardial infarction CVA (cerebral vascular accident) Hypertension Mother , Age 94 Hypertension CVA (cerebral vascular accident) Sister Cancer Brother , Age 13 months from congenital heart defect Congenital heart defect Surgical History History of left heart catheterization (09/09/03) History of cardioversion (07/12/05) H/O colectomy History of bunionectomy History of appendectomy History of hysterectomy (1990) History of knee replacement (05/2018) History of tilt table evaluation (06/02/04) Hx of atrioventricular node ablation History of radiofrequency ablation procedure for cardiac arrhythmia Cardiac pacemaker in situ Social History household members: spouse Smoking Status: Never smoker alcohol intake: never substance use type: does not use caffeine: No Vital Signs Vital Signs Vital Signs: 05/20/24 14:41 Temperature 97 F L Temperature Source Temporal Pulse Rate 61 Respiratory Rate 18 Blood Pressure 167/68 H Blood Pressure Mean 101 Blood Pressure Source Monitor Blood Pressure Position Semi-Fowlers Blood Pressure Location Left Arm Weight Weight: 136 lb Body Mass Index (BMI) 24.8 Physical Exam Const alert, oriented x3, no apparent distress, average body habitus, no limitations and well nourished Constitutional Narrative: The patient's BMI is 24.9 General Appearance: cooperative, comfortable and well developed Orientation / Consciousness: awake, oriented to person, oriented to place and oriented to time Exam Limitations: no limitations HEENT normocephalic and head/scalp atraumatic Head and Scalp: normal to inspection, normocephalic and atraumatic Face and Sinus: normal facial exam Eyes EOMs intact bilaterally General Eye: normal appearance of both eyes Neck full ROM Resp normal respiratory effort, normal air movement, no retractions and no use of accessory muscles Effort and Inspection: able to speak in complete sentences Auscultation: clear to auscultation bilaterally Extremity General Extremity: normal exam except as noted Skin Wounds: wounds noted Wound Narrative: An open wound is noted on the left lateral calf. There is no obvious sign of infection or cellulitis. There is a small amount of bioburden and nonviable tissue. Dimensions are documented elsewhere. This wound appears to be slowly diminishing in size, with a decreasing amount of nonviable tissue. There is also an abrasion on the patient's left elbow. Dimensions are documented elsewhere. There is no sign of infection or cellulitis. This appears to be improving. There is an avulsion injury on the left knee, which had been recently treated in the Emergency Department, at which time this skin flap had been repositioned over the wound with hope that the flap would remain viable. However, the skin flap has necrosis, and the remaining nonviable tissue has been largely removed. Only a small portion of this nonviable tissue remains at the periphery. Mild erythema previously noted at this site has resolved. Blisters which have previously formed on the anterior portion of the right knee have now resulted in an open wound, with significant periwound erythema suggestive of possible cellulitis. A swab culture has been obtained for aerobic and anaerobic bacterial growth. Culture results will be awaited. Hair: normal Neuro oriented x3, CN's II-XII intact bilaterally, moves all extremities, no focal motor deficits and no sensory deficits noted Sensorium / Orientation: awake, alert, oriented to person, oriented to place and oriented to time Psych Appearance: grossly normal Speech: normal speech Thought Content: normal thought content Judgement: judgement good Debridement Note Debridement Note Wound debrided: Left lateral calf wound Laterality: Left Type of Debridement: Excisional debridement Anesthesia Used: 5% Lidocaine Gel and Cetacaine Depth: Down to and including healthy tissue and in the subcutaneous layer Percentage of wound debrided: 100 Instrument Used: 5mm curette Tissue Removed: Bioburden and nonviable tissue Severity: Fat Layer Exposed Amount of bleeding with debridement: Mild Bleeding Controlled with: Compression and gauze Patient tolerated procedure: Patient tolerated procedure well Post-Debridement Measurements and Additional Note: Post-Debridement Measurements/Treatment WC - Nurse 1 - General Ulcer Assessment Start: 04/29/24 14:02 Freq: Status: Active Protocol: WC.LOWEXT Activity Type Activity Date Activity User E-sign Co-sign Detail Recorded Client Recorded Date Recorded By Document 04/29/24 14:02 [facility] [id number] 04/29/24 14:22 BMF Document 05/06/24 14:57 KW l 05/06/24 15:14 KW Document 05/13/24 15:11 KW ; 05/13/24 15:28 KW Document 05/20/24 14:41 RB wound 05/20/24 15:04 RB 04/29/24 05/06/24 05/13/24 14:02 14:57 15:11 WC - Today's Visit Information Type of service Follow-up Visit Follow-up Visit Follow-up Visit (Physician/CORPORATE COMMUNICATIONS SPECIALIST (Physician/CORPORATE COMMUNICATIONS SPECIALIST (Physician/CORPORATE COMMUNICATIONS SPECIALIST ) ) ) Arrival Mode Ambulatory,Cane Ambulatory,Cane Ambulatory,Cane Transfer Assistance None Transfer Assist (Other) HUSB Accompanied by Patient Identification Verified (Name & Yes Yes Yes ) Patient Requires Transmission-Based Precautions Height and Weight Body Mass Index (BMI) 24.8 24.8 24.8 BMI Classification Normal Normal Normal Vital Signs Temperature (97.8 F-99.1 F) 97.7 F L 97.4 F L 98.0 F Temperature Source Temporal Temporal Temporal Pulse Rate (60-100) 78 88 85 Pulse Location Monitor Monitor Monitor Respiratory Rate (12-18) 16 18 18 Respiratory rate source Observation Observation Observation Oxygen Delivery Method Room Air Room Air Room Air Blood Pressure (90/60-120/80) 152/76 H 172/91 H 181/90 H Blood Pressure Mean 101 118 120 Source Monitor Monitor Monitor Position Sitting Semi-Fowlers Semi-Fowlers Blood Pressure Location Right Arm Right Arm Left Arm History Since Last Visit- (Skip if this is Patient's initial visit) Have you changed medications since your No No No last visit? Any new allergies or adverse reactions No No No Had a fall/change in ADL's that may No No No increase risk of falls Signs or symptoms of abuse and/or No No No neglect since last visit Have you been in the hospital since your Yes No No last visit? Has dressing in place as prescribed Yes Yes Yes Has compression in place as prescribed Yes Yes Yes Has offloadiing in place as prescribed N/A N/A N/A Experienced any changes in pain level or No No No management Left Footwear Diabetic Shoe Regular Shoe Regular Shoe Right Footwear Diabetic Shoe Regular Shoe Regular Shoe Pain Scale: 0-10 Numeric Is Patient Pain Free? Yes Yes Yes 05/20/24 14:41 WC - Today's Visit Information Type of service Follow-up Visit (Physician/CORPORATE COMMUNICATIONS SPECIALIST ) Arrival Mode Ambulatory Transfer Assistance None Transfer Assist (Other) Accompanied by Patient Identification Verified (Name & Yes ) Patient Requires Transmission-Based No Precautions Height and Weight Body Mass Index (BMI) 24.8 BMI Classification Normal Vital Signs Temperature (97.8 F-99.1 F) 97 F L Temperature Source Temporal Pulse Rate (60-100) 61 Pulse Location Monitor Respiratory Rate (12-18) 18 Respiratory rate source Observation Oxygen Delivery Method Blood Pressure (90/60-120/80) 167/68 H Blood Pressure Mean 101 Source Monitor Position Semi-Fowlers Blood Pressure Location Left Arm History Since Last Visit- (Skip if this is Patient's initial visit) Have you changed medications since your No last visit? Any new allergies or adverse reactions No Had a fall/change in ADL's that may No increase risk of falls Signs or symptoms of abuse and/or No neglect since last visit Have you been in the hospital since your No last visit? Has dressing in place as prescribed Yes Has compression in place as prescribed No Has offloadiing in place as prescribed No Experienced any changes in pain level or No management Left Footwear Right Footwear Pain Scale: 0-10 Numeric Is Patient Pain Free? Yes WC - Nurse 1 - General Ulcer Measurement Start: 04/29/24 14:02 Freq: Status: Active Protocol: Activity Type Activity Date Activity User E-sign Co-sign Detail Recorded Client Recorded Date Recorded By Document 04/29/24 14:02 BM [id number] 04/29/24 14:22 BMF Document 05/06/24 14:57 KW l 05/06/24 15:14 KW Document 05/13/24 15:11 KW ; 05/13/24 15:28 KW Document 05/20/24 14:41 RB wound 05/20/24 15:04 RB 04/29/24 05/06/24 05/13/24 14:02 14:57 15:11 Wound Center Nurse 1 #4 right knee cluster -Combined with other wound -Current Size (cm) - Length -Current Size (cm) - Width -Current Size (cm) - Depth -Total Square Cm -Tunneling -Undermining/Tunneling -Circular Undermining -Exudate Amt -Exudate Type -Wound Margin -Granulation Amt -Granulation Quality -Slough/Fibrin -Necrosis Amt -Necrotic Tissue Type -Structure Exposed -Texture (Nhung-wound Skin Appearance) -Moisture (Nhung-wound Skin Appearance) -Color (Nhung-wound Skin Appearance) -Temperature (Nhung-wound Skin Appearance) -Tenderness on Palpation (Nhung-wound Skin Appearance) -Ulcer Cleansing -Foul Odor after Cleansing -Anesthetic Used #3- L KNEE SKIN TEAR POST FALL -Combined with other wound No -Current Size (cm) - Length 0.1 0.1 6.3 -Current Size (cm) - Width 0.1 0.1 4.2 -Current Size (cm) - Depth 0.1 0.1 0.1 -Total Square Cm 0.01 0.01 26.46 -Date of Last Picture (Recall this 04/29/24 field) -Photo Taken Yes -Tunneling -Undermining/Tunneling -Circular Undermining -Exudate Amt Medium None Present Small -Exudate Type Sanguineous Serosanguineous -Wound Margin Distinct, Outline Attached -Granulation Amt Small (1-33%) -Granulation Quality Red -Slough/Fibrin -Necrosis Amt Large (67-100%) -Necrotic Tissue Type Eschar -Structure Exposed -Texture (Nhung-wound Skin Appearance) Assessed, Assessed Assessed Localized Edema -Moisture (Nhung-wound Skin Appearance) Assessed Assessed Assessed -Color (Nhung-wound Skin Appearance) Assessed, Assessed Assessed Ecchymosis, Erythema -Temperature (Nhung-wound Skin No Abnormality No Abnormality No Abnormality Appearance) (Pt Warm) (Pt Warm) (Pt Warm) -Tenderness on Palpation (Nhung-wound Yes No Skin Appearance) -Ulcer Cleansing Rinsed/ Soap and Water Irrigated with Saline -Foul Odor after Cleansing No No -Anesthetic Used 5% Lidocaine 5% Lidocaine Gel Gel -Wound Comment(s) STERIS LEFT STERI STRIPS INTACT. APPLIED INTACT PER ER LAST EVENING @ [facility] #3- LFA SKIN TEAR -Combined with other wound No -Current Size (cm) - Length 2.1 2 2 -Current Size (cm) - Width 2.5 2.5 2.6 -Current Size (cm) - Depth 0.1 0.1 0.1 -Total Square Cm 5.25 5.0 5.2 -Date of Last Picture (Recall this 04/29/24 field) -Photo Taken Yes -Epithelialization None Present -Tunneling No -Undermining/Tunneling No -Circular Undermining No -Exudate Amt Medium Small Small -Exudate Type Serosanguineous Serosanguineous Serosanguineous -Wound Margin Distinct, Distinct, Distinct, Outline Outline Outline Attached Attached Attached -Granulation Amt Large (67-100%) Large (67-100%) Medium (34-66%) -Granulation Quality Red Red Red -Slough/Fibrin No -Necrosis Amt None Present (0 Medium (34-66%) %) -Necrotic Tissue Type Adherent Slough -Structure Exposed -Texture (Nhung-wound Skin Appearance) Assessed Assessed Assessed -Moisture (Nhung-wound Skin Appearance) Assessed Assessed Assessed -Color (Nhung-wound Skin Appearance) Assessed, Assessed Assessed, Ecchymosis, Erythema Erythema -Temperature (Nhung-wound Skin No Abnormality No Abnormality No Abnormality Appearance) (Pt Warm) (Pt Warm) (Pt Warm) -Tenderness on Palpation (Nhung-wound Yes No No Skin Appearance) -Ulcer Cleansing Soap and Water Rinsed/ Soap and Water Irrigated with Saline -Foul Odor after Cleansing No No No -Anesthetic Used 5% Lidocaine 5% Lidocaine 5% Lidocaine Gel Gel Gel #2 LT LAT LE -Combined with other wound No -Current Size (cm) - Length 4 4.2 3.6 -Current Size (cm) - Width 2.6 2.2 1.5 -Current Size (cm) - Depth 0.7 0.5 0.3 -Total Square Cm 10.4 9.24 5.40 -Date of Last Picture (Recall this 04/29/24 field) -Photo Taken Yes -Epithelialization Small 1-33% -Tunneling No -Undermining/Tunneling No -Circular Undermining No -Exudate Amt Large Medium Medium -Exudate Type Serosanguineous Serosanguineous Serosanguineous -Wound Margin Distinct, Distinct, Distinct, Outline Outline Outline Attached Attached Attached -Granulation Amt Medium (34-66%) Small (1-33%) Small (1-33%) -Granulation Quality Pale,[place] Red [place] -Slough/Fibrin Yes -Necrosis Amt Medium (34-66%) Large (67-100%) Large (67-100%) -Necrotic Tissue Type Adherent Slough Adherent Slough Adherent Slough -Structure Exposed -Texture (Nhung-wound Skin Appearance) Assessed, Assessed Assessed Localized Edema -Moisture (Nhung-wound Skin Appearance) Assessed Assessed Assessed -Color (Nhung-wound Skin Appearance) Assessed, Assessed, Assessed Erythema Erythema -Temperature (Nhung-wound Skin No Abnormality No Abnormality No Abnormality Appearance) (Pt Warm) (Pt Warm) (Pt Warm) -Tenderness on Palpation (Nhung-wound Yes No No Skin Appearance) -Ulcer Cleansing Soap and Water Rinsed/ Soap and Water Irrigated with Saline -Foul Odor after Cleansing No No No -Anesthetic Used 5% Lidocaine 5% Lidocaine 5% Lidocaine Gel Gel Gel Lower Limb Edema Present Right Calf (cm) 34 Right Ankle (cm) 21.6 Left Calf (cm) 38.8 Left Ankle (cm) 21.9 05/20/24 14:41 Wound Center Nurse 1 #4 right knee cluster -Combined with other wound No -Current Size (cm) - Length 2 -Current Size (cm) - Width 4.5 -Current Size (cm) - Depth 0.1 -Total Square Cm 9.0 -Tunneling No -Undermining/Tunneling No -Circular Undermining No -Exudate Amt Medium -Exudate Type Serosanguineous -Wound Margin Distinct, Outline Attached -Granulation Amt Medium (34-66%) -Granulation Quality [place] -Slough/Fibrin Yes -Necrosis Amt Medium (34-66%) -Necrotic Tissue Type Adherent Slough -Structure Exposed N/A -Texture (Nhung-wound Skin Appearance) Assessed -Moisture (Nhung-wound Skin Appearance) Assessed -Color (Nhung-wound Skin Appearance) Assessed, Erythema -Temperature (Nhung-wound Skin No Abnormality Appearance) (Pt Warm) -Tenderness on Palpation (Nhung-wound No Skin Appearance) -Ulcer Cleansing Wound Cleanser -Foul Odor after Cleansing No -Anesthetic Used 4% Lidocaine Solution #3- L KNEE SKIN TEAR POST FALL -Combined with other wound No -Current Size (cm) - Length 4.5 -Current Size (cm) - Width 4 -Current Size (cm) - Depth 0.1 -Total Square Cm 18.0 -Date of Last Picture (Recall this field) -Photo Taken -Tunneling No -Undermining/Tunneling No -Circular Undermining No -Exudate Amt Large -Exudate Type Serosanguineous -Wound Margin Distinct, Outline Attached -Granulation Amt Medium (34-66%) -Granulation Quality [place] -Slough/Fibrin Yes -Necrosis Amt Medium (34-66%) -Necrotic Tissue Type Adherent Slough -Structure Exposed N/A -Texture (Nhung-wound Skin Appearance) Assessed -Moisture (Nhung-wound Skin Appearance) Assessed -Color (Nhung-wound Skin Appearance) Assessed, Erythema -Temperature (Nhung-wound Skin No Abnormality Appearance) (Pt Warm) -Tenderness on Palpation (Nhung-wound No Skin Appearance) -Ulcer Cleansing -Foul Odor after Cleansing -Anesthetic Used 4% Lidocaine Solution -Wound Comment(s) #3- LFA SKIN TEAR -Combined with other wound No -Current Size (cm) - Length 1 -Current Size (cm) - Width 1 -Current Size (cm) - Depth 0.1 -Total Square Cm 1 -Date of Last Picture (Recall this field) -Photo Taken -Epithelialization -Tunneling No -Undermining/Tunneling No -Circular Undermining No -Exudate Amt Large -Exudate Type Serosanguineous -Wound Margin Distinct, Outline Attached -Granulation Amt Medium (34-66%) -Granulation Quality [place] -Slough/Fibrin Yes -Necrosis Amt Medium (34-66%) -Necrotic Tissue Type Adherent Slough -Structure Exposed N/A -Texture (Nhung-wound Skin Appearance) Assessed -Moisture (Nhung-wound Skin Appearance) Assessed -Color (Nhung-wound Skin Appearance) Assessed, Erythema -Temperature (Nhung-wound Skin No Abnormality Appearance) (Pt Warm) -Tenderness on Palpation (Nhung-wound No Skin Appearance) -Ulcer Cleansing Wound Cleanser -Foul Odor after Cleansing No -Anesthetic Used 4% Lidocaine Solution #2 LT LAT LE -Combined with other wound No -Current Size (cm) - Length 3 -Current Size (cm) - Width 1 -Current Size (cm) - Depth 0.3 -Total Square Cm 3 -Date of Last Picture (Recall this field) -Photo Taken -Epithelialization -Tunneling No -Undermining/Tunneling No -Circular Undermining No -Exudate Amt Medium -Exudate Type Serosanguineous -Wound Margin Thickened & Rolled Under -Granulation Amt Medium (34-66%) -Granulation Quality [place] -Slough/Fibrin Yes -Necrosis Amt Medium (34-66%) -Necrotic Tissue Type Adherent Slough -Structure Exposed N/A -Texture (Nhung-wound Skin Appearance) Assessed -Moisture (Nhung-wound Skin Appearance) -Color (Nhung-wound Skin Appearance) Assessed, Erythema -Temperature (Nhung-wound Skin No Abnormality Appearance) (Pt Warm) -Tenderness on Palpation (Nhung-wound No Skin Appearance) -Ulcer Cleansing Wound Cleanser -Foul Odor after Cleansing No -Anesthetic Used 4% Lidocaine Solution Lower Limb Edema Present Yes Right Calf (cm) Right Ankle (cm) Left Calf (cm) 35.5 Left Ankle (cm) 22 WC - Nurse 2 - General Ulcer CM Notes Start: 04/29/24 14:02 Freq: Status: Active Protocol: Activity Type Activity Date Activity User E-sign Co-sign Detail Recorded Client Recorded Date Recorded By Document 04/29/24 14:34 [id number] 04/29/24 14:44 Document 05/06/24 15:45 JF 000 05/06/24 15:52 Document 05/13/24 15:39 DS 1 05/13/24 15:54 DS Edit Result 05/13/24 15:39 DS (1) 1 05/13/24 15:57 DS Edit Result 05/13/24 15:39 DS (2) 1 05/21/24 08:30 DS Document 05/20/24 15:24 DS 1 05/20/24 15:44 DS Edit Result 05/20/24 15:24 DS (3) 1 05/21/24 11:30 DS (1) #4 right knee cluster - Correct Patient => No - Correct Side, Site, Position => No - Correct Procedure => No - Procedure Performed => No - Wound/Ulcer Outcome => Not Healed (2) #4 right knee cluster - Correct Patient No => - Correct Side, Site, Position No => - Correct Procedure No => - Procedure Performed No => - Wound/Ulcer Outcome Not Healed => (3) #4 right knee cluster - Debridement, SubQ, ea addt'l 20sq cm => 1 or part thereof #3- L KNEE SKIN TEAR POST FALL - Debridement - Subq, 1st 20sq cm Yes => No #3- LFA SKIN TEAR - Debridement - Subq, 1st 20sq cm Yes => No 04/29/24 05/06/24 05/13/24 14:34 15:45 15:39 Wound Center Nurse 2 #4 right knee cluster -Time -Correct Patient -Correct Side, Site, Position -Correct Procedure -Procedure Performed -Type of Procedure -Clinical Debridement -Tissue Removed -Post Debridement (cm) - Length -Post Debridement (cm) - Width -Post Debridement (cm) - Depth -Total Square (Post) (cm) -Area of Debridement (cm) - Length -Area of Debridement (cm) - Width -Total Square (Area) (cm) -Tunneling -Undermining/Tunneling -Circular Undermining -Wound/Ulcer Outcome -Bleeding Controlled with -Treatment Response -Debridement - Subq, 1st 20sq cm -Debridement, SubQ, ea addt'l 20sq cm or part thereof #3- L KNEE SKIN TEAR POST FALL -Time 15:48 15:39 -Correct Patient No Yes Yes -Correct Side, Site, Position No Yes Yes -Correct Procedure No Yes Yes -Procedure Performed No Yes Yes -Type of Procedure Debridement Debridement -Clinical Debridement Subcutaneous Subcutaneous -Tissue Removed Subcutaneous Subcutaneous -Post Debridement (cm) - Length 4.5 4.8 -Post Debridement (cm) - Width 3.5 3.2 -Post Debridement (cm) - Depth 0.1 0.1 -Total Square (Post) (cm) 15.75 15.36 -Area of Debridement (cm) - Length 4.5 4.8 -Area of Debridement (cm) - Width 3.5 3.2 -Total Square (Area) (cm) 15.75 15.36 -Tunneling No No -Undermining/Tunneling No No -Circular Undermining No No -Wound/Ulcer Outcome Not Healed Not Healed Not Healed -Ulcer Cleansing Rinsed/ Irrigated with Saline -Foul Odor after Cleansing No -Bioengineered Tissue No -Bleeding Controlled with Pressure Pressure -Treatment Response Procedure Procedure Tolerated Well Tolerated Well -Offloading No -Debridement - Subq, 1st 20sq cm No Yes #3- LFA SKIN TEAR -Time 15:46 15:39 -Correct Patient No Yes Yes -Correct Side, Site, Position No Yes Yes -Correct Procedure No Yes Yes -Procedure Performed No Yes Yes -Type of Procedure Debridement Debridement -Clinical Debridement Subcutaneous Subcutaneous -Tissue Removed Subcutaneous Subcutaneous -Post Debridement (cm) - Length 1.7 1.7 -Post Debridement (cm) - Width 2.2 1.5 -Post Debridement (cm) - Depth 0.1 0.1 -Total Square (Post) (cm) 3.74 2.55 -Area of Debridement (cm) - Length 1.7 1.7 -Area of Debridement (cm) - Width 2.2 1.5 -Total Square (Area) (cm) 3.74 2.55 -Tunneling No No -Undermining/Tunneling No No -Circular Undermining No No -Wound/Ulcer Outcome Not Healed Not Healed Not Healed -Bleeding Controlled with Pressure Pressure -Treatment Response Procedure Procedure Tolerated Well Tolerated Well -Offloading No -Debridement - Subq, 1st 20sq cm No No #2 LT LAT LE -Time 14:43 15:49 15:39 -Correct Patient Yes Yes Yes -Correct Side, Site, Position Yes Yes Yes -Correct Procedure Yes Yes Yes -Procedure Performed Yes Yes Yes -Type of Procedure Debridement Debridement Debridement -Clinical Debridement Subcutaneous Subcutaneous Subcutaneous -Tissue Removed Subcutaneous Dermis Subcutaneous -Post Debridement (cm) - Length 4.1 4 3.5 -Post Debridement (cm) - Width 2.8 2.4 1.6 -Post Debridement (cm) - Depth 0.4 0.3 0.7 -Total Square (Post) (cm) 11.48 9.6 5.60 -Area of Debridement (cm) - Length 4.1 4 3.5 -Area of Debridement (cm) - Width 2.8 2.4 1.6 -Total Square (Area) (cm) 11.48 9.6 5.60 -Tunneling No No No -Undermining/Tunneling No No No -Circular Undermining No No No -Wound/Ulcer Outcome Not Healed Not Healed Not Healed -Ulcer Cleansing Rinsed/ Rinsed/ Irrigated with Irrigated with Saline Saline -Foul Odor after Cleansing No No -Bioengineered Tissue No No -Bleeding Controlled with Pressure Pressure Pressure -Treatment Response Procedure Procedure Procedure Tolerated Well Tolerated Well Tolerated Well -Offloading No No -Debridement - Subq, 1st 20sq cm Yes Yes Yes -Debridement, SubQ, ea addt'l 20sq cm 1 or part thereof Pain Scale: 0-10 Numeric Is Patient Pain Free? Yes Yes No right knee -Description -Intensity -Pain Aggravating Factors -Alleviating Factors/Interventions left knee -Description Sharp,Aching -Intensity 5 -Duration (hours) Acute -Pain Behavior Moaning -Pain Aggravating Factors Debridement -Alleviating Factors/Interventions Will continue to monitor, Emotional Support 05/20/24 15:24 Wound Center Nurse 2 #4 right knee cluster -Time 15:25 -Correct Patient Yes -Correct Side, Site, Position Yes -Correct Procedure Yes -Procedure Performed Yes -Type of Procedure Debridement -Clinical Debridement Subcutaneous -Tissue Removed Subcutaneous -Post Debridement (cm) - Length 2.0 -Post Debridement (cm) - Width 5.8 -Post Debridement (cm) - Depth 0.1 -Total Square (Post) (cm) 11.60 -Area of Debridement (cm) - Length 2.0 -Area of Debridement (cm) - Width 5.8 -Total Square (Area) (cm) 11.60 -Tunneling No -Undermining/Tunneling No -Circular Undermining No -Wound/Ulcer Outcome Not Healed -Bleeding Controlled with Pressure -Treatment Response Procedure Tolerated Well -Debridement - Subq, 1st 20sq cm Yes -Debridement, SubQ, ea addt'l 20sq cm 1 or part thereof #3- L KNEE SKIN TEAR POST FALL -Time 15:25 -Correct Patient Yes -Correct Side, Site, Position Yes -Correct Procedure Yes -Procedure Performed Yes -Type of Procedure Debridement -Clinical Debridement Subcutaneous -Tissue Removed Subcutaneous -Post Debridement (cm) - Length 4.5 -Post Debridement (cm) - Width 3.5 -Post Debridement (cm) - Depth 0.1 -Total Square (Post) (cm) 15.75 -Area of Debridement (cm) - Length 4.5 -Area of Debridement (cm) - Width 3.5 -Total Square (Area) (cm) 15.75 -Tunneling No -Undermining/Tunneling No -Circular Undermining No -Wound/Ulcer Outcome Not Healed -Ulcer Cleansing -Foul Odor after Cleansing -Bioengineered Tissue -Bleeding Controlled with Pressure -Treatment Response Procedure Tolerated Well -Offloading -Debridement - Subq, 1st 20sq cm No #3- LFA SKIN TEAR -Time 15:26 -Correct Patient Yes -Correct Side, Site, Position Yes -Correct Procedure Yes -Procedure Performed Yes -Type of Procedure Debridement -Clinical Debridement Subcutaneous -Tissue Removed Subcutaneous -Post Debridement (cm) - Length 1.1 -Post Debridement (cm) - Width 1.0 -Post Debridement (cm) - Depth 0.1 -Total Square (Post) (cm) 1.10 -Area of Debridement (cm) - Length 1.1 -Area of Debridement (cm) - Width 1.0 -Total Square (Area) (cm) 1.10 -Tunneling No -Undermining/Tunneling No -Circular Undermining No -Wound/Ulcer Outcome Not Healed -Bleeding Controlled with Pressure -Treatment Response Procedure Tolerated Well -Offloading -Debridement - Subq, 1st 20sq cm No #2 LT LAT LE -Time 15:24 -Correct Patient Yes -Correct Side, Site, Position Yes -Correct Procedure Yes -Procedure Performed Yes -Type of Procedure Debridement -Clinical Debridement Subcutaneous -Tissue Removed Subcutaneous -Post Debridement (cm) - Length 3.3 -Post Debridement (cm) - Width 1.2 -Post Debridement (cm) - Depth 0.3 -Total Square (Post) (cm) 3.96 -Area of Debridement (cm) - Length 3.3 -Area of Debridement (cm) - Width 1.2 -Total Square (Area) (cm) 3.96 -Tunneling No -Undermining/Tunneling No -Circular Undermining No -Wound/Ulcer Outcome Not Healed -Ulcer Cleansing -Foul Odor after Cleansing -Bioengineered Tissue -Bleeding Controlled with Pressure -Treatment Response Procedure Tolerated Well -Offloading -Debridement - Subq, 1st 20sq cm No -Debridement, SubQ, ea addt'l 20sq cm or part thereof Pain Scale: 0-10 Numeric Is Patient Pain Free? No right knee -Description Aching -Intensity 8 -Pain Aggravating Factors Debridement -Alleviating Factors/Interventions Will continue to monitor, Emotional Support left knee -Description -Intensity -Duration (hours) -Pain Behavior -Pain Aggravating Factors -Alleviating Factors/Interventions WC - Nurse 3 - General Ulcer D/C NN Start: 04/29/24 14:02 Freq: Status: Active Protocol: Activity Type Activity Date Activity User E-sign Co-sign Detail Recorded Client Recorded Date Recorded By Document 04/29/24 14:59 KW z 04/29/24 15:01 KW Edit Result 04/29/24 14:59 KW (1) z 04/29/24 15:03 KW Document 05/06/24 16:18 DL [id number] 05/06/24 16:20 DL Document 05/13/24 16:18 KW ; 05/13/24 16:20 KW Document 05/21/24 09:48 KW d 05/21/24 09:50 KW (1) #2 LT LAT LE - Aquacel Extra 1 => 2 04/29/24 05/06/24 05/13/24 14:59 16:18 16:18 Wound Care Center Nurse 3 #4 right knee cluster -Ulcer Cleansing Rinsed/ Irrigated with Saline -Primary Dressing Applied C Hydrogel ($) -Other Dressing -Primary Dressing Covered/Secured with Dry Gauze,Dry Gauze & Roll Gauze,Secured with Tape #3- L KNEE SKIN TEAR POST FALL -Ulcer Cleansing Rinsed/ Irrigated with Saline -Foul Odor after Cleansing No -Primary Dressing Applied NonAdherent Contact Layer -Other Dressing ABD HYDROGEL -Primary Dressing Covered/Secured with Dry Gauze & Dry Gauze,Dry Dry Gauze,Dry Roll Gauze, Gauze & Roll Gauze & Roll Secured with Gauze Gauze,Secured Tape with Tape #3- LFA SKIN TEAR -Ulcer Cleansing Rinsed/ Irrigated with Saline -Foul Odor after Cleansing No -Primary Dressing Applied C Hydrogel ($), NonAdherent NonAdherent Contact Layer Contact Layer -Other Dressing hydrogel HYDROGEL -Primary Dressing Covered/Secured with Dry Gauze & Dry Gauze & Dry Gauze,Dry Roll Gauze, Roll Gauze, Gauze & Roll Secured with Secured with Gauze,Secured Tape Tape with Tape #2 LT LAT LE -Ulcer Cleansing Rinsed/ Irrigated with Saline -Foul Odor after Cleansing No -Primary Dressing Applied Aquacel Extra Aquacel Extra -Other Dressing HYDROGEL -Primary Dressing Covered/Secured with Dry Gauze & Dry Gauze & Dry Gauze,Dry Roll Gauze, Roll Gauze, Gauze & Roll Secured with Secured with Gauze,Secured Tape Tape with Tape -Aquacel Extra 2 1 LT FORARM -Tubular Bandage -Size of Tubigrip Used -Size C ($) Right -Compression Wrap Left -Compression Wrap -Tubular Bandage Single Layer Single Layer -Size of Tubigrip Used Size E Size E -Size D ($) -Size E ($) 1 2 -Other CHRISS Treatment Response Procedure Tolerated Well Pain Scale: 0-10 Numeric Is Patient Pain Free? Yes Yes No left knee -Description Aching -Intensity 5 -Duration (hours) Chronic -Pain Behavior Guarding -Pain Aggravating Factors Exercise/ Activity -Alleviating Factors/Interventions Medication -Effectiveness of Alleviating Factor/ Moderately Intervention effective WC - Visit Discharge Discharge Condition Stable Stable Stable Ambulatory Status Ambulatory,Cane Ambulatory, Ambulatory,Cane Walker Transportation Private Auto Private Auto Private Auto Accompanied by Medication Reconcilliation completed & No No provided to patient/care provider Clinical Summary of Care Provided Yes Yes 05/21/24 09:48 Wound Care Center Nurse 3 #4 right knee cluster -Ulcer Cleansing -Primary Dressing Applied -Other Dressing santyl -Primary Dressing Covered/Secured with Dry Gauze & Roll Gauze, Secured with Tape #3- L KNEE SKIN TEAR POST FALL -Ulcer Cleansing -Foul Odor after Cleansing -Primary Dressing Applied -Other Dressing santyl -Primary Dressing Covered/Secured with Dry Gauze & Roll Gauze, Secured with Tape #3- LFA SKIN TEAR -Ulcer Cleansing -Foul Odor after Cleansing -Primary Dressing Applied -Other Dressing hydrogel -Primary Dressing Covered/Secured with Dry Gauze & Roll Gauze, Secured with Tape #2 LT LAT LE -Ulcer Cleansing -Foul Odor after Cleansing -Primary Dressing Applied -Other Dressing santyl -Primary Dressing Covered/Secured with Dry Gauze -Aquacel Extra LT FORARM -Tubular Bandage Single Layer -Size of Tubigrip Used Size C -Size C ($) 1 Right -Compression Wrap Chriss Wrap Left -Compression Wrap Chriss Wrap -Tubular Bandage Single Layer -Size of Tubigrip Used Size D -Size D ($) 1 -Size E ($) -Other Treatment Response Pain Scale: 0-10 Numeric Is Patient Pain Free? Yes left knee -Description -Intensity -Duration (hours) -Pain Behavior -Pain Aggravating Factors -Alleviating Factors/Interventions -Effectiveness of Alleviating Factor/ Intervention WC - Visit Discharge Discharge Condition Ambulatory Status Transportation Accompanied by Medication Reconcilliation completed & provided to patient/care provider Clinical Summary of Care Provided Additional Wound Wound debrided: Left knee wound Laterality: Left Type of Debridement: Excisional debridement Anesthesia Used: 5% Lidocaine Gel Depth: Down to and including healthy tissue and in the subcutaneous layer Percentage of wound debrided: 100 Instrument Used: 5mm curette, Forceps and - (Scissors) Tissue Removed: Bioburden and devitalized tissue remaining from necrosed skin flap Severity: Fat Layer Exposed Amount of bleeding with debridement: Mild Bleeding Controlled with: Compression and gauze Patient tolerated procedure: Patient tolerated procedure well Additional Wound Wound debrided: Left elbow Laterality: Left Type of Debridement: Excisional debridement Anesthesia Used: 5% Lidocaine Gel and Cetacaine Depth: Down to and including healthy tissue and in the subcutaneous layer Percentage of wound debrided: 100 Instrument Used: 5mm curette Tissue Removed: Bioburden Severity: Fat Layer Exposed Amount of bleeding with debridement: Mild Bleeding Controlled with: Compression and gauze Patient tolerated procedure: Patient tolerated procedure well Additional Wound Wound debrided: Right knee Laterality: Right Type of Debridement: Excisional debridement Anesthesia Used: 5% Lidocaine Gel Depth: Down to and including healthy tissue and in the subcutaneous layer Percentage of wound debrided: 100 Instrument Used: 5mm curette Severity: Fat Layer Exposed Amount of bleeding with debridement: Mild Bleeding Controlled with: Compression and gauze Patient tolerated procedure: Patient tolerated procedure well Charges/Coding Multi Select Codes Integumentary Integumentary CPT Codes: 67823 Pili subq tissue 20 sq cm/< (Right knee X 1; Left elbow X 1; Left leg X 1 (calf and knee, combined)) Assessment/Plan Assessment/Plan (1) Non-pressure 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 layer exposed: CODE(S): L97.222 - Non-pressure 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 layer exposed (2) Traumatic open wound of left lower leg: CODE(S): S81.802A - Unspecified open wound, left lower leg, initial encounter QUALIFIERS: Encounter type: subsequent encounter Qualified Code(s): S81.802D - Unspecified open wound, left lower leg, subsequent encounter (3) Wound, open, elbow: CODE(S): S51.009A - Unspecified open wound of unspecified elbow, initial encounter QUALIFIERS: Encounter type: subsequent encounter Laterality: left Qualified Code(s): S51.002D - Unspecified open wound of left elbow, subsequent encounter (4) Open wound of knee: CODE(S): S81.009A - Unspecified open wound, unspecified knee, initial encounter QUALIFIERS: Encounter type: subsequent encounter Laterality: left Qualified Code(s): S81.002D - Unspecified open wound, left knee, subsequent encounter (5) Open wound of knee: CODE(S): S81.009A - Unspecified open wound, unspecified knee, initial encounter QUALIFIERS: Encounter type: subsequent encounter Laterality: right Qualified Code(s): S81.001D - Unspecified open wound, right knee, subsequent encounter (6) Current use of [facility] anticoagulation: CODE(S): Z79.01 - long-term (current) use of anticoagulants (7) Hammer toe of right foot: CODE(S): M20.41 - Other hammer toe(s) (acquired), right foot (8) Venous (peripheral) insufficiency: CODE(S): I87.2 - Venous insufficiency (chronic) (peripheral) (9) Atrial fibrillation: CODE(S): I48.91 - Unspecified atrial fibrillation (10) Shortness of breath: CODE(S): R06.02 - Shortness of breath (11) CAD (coronary artery disease): CODE(S): I25.10 - Atherosclerotic heart disease of [place] coronary artery without angina pectoris QUALIFIERS: Coronary Disease-Associated Artery/Lesion type: [place] artery [place] vs. transplanted heart: [place] heart Associated angina: without angina Qualified Code(s): I25.10 - Atherosclerotic heart disease of [place] coronary artery without angina pectoris (12) Essential hypertension: CODE(S): I10 - Essential (primary) hypertension (13) Cardiac pacemaker in situ: CODE(S): Z95.0 - Presence of cardiac pacemaker (14) AV block, complete: CODE(S): I44.2 - Atrioventricular block, complete (15) History of radiofrequency ablation procedure for cardiac arrhythmia: CODE(S): Z98.890 - Other specified postprocedural states (16) Hx of atrioventricular node ablation: CODE(S): Z98.890 - Other specified postprocedural states (17) Diastolic congestive heart failure: CODE(S): I50.30 - Unspecified diastolic (congestive) heart failure QUALIFIERS: Heart failure chronicity: chronic Qualified Code(s): I50.32 - Chronic diastolic (congestive) heart failure (18) Pulmonary hypertension: CODE(S): I27.20 - Pulmonary hypertension, unspecified (19) Nonrheumatic mitral valve regurgitation: CODE(S): I34.0 - Nonrheumatic mitral (valve) insufficiency (20) Hyperlipidemia: CODE(S): E78.5 - Hyperlipidemia, unspecified QUALIFIERS: Hyperlipidemia type: unspecified Qualified Code(s): E78.5 - Hyperlipidemia, unspecified (21) GERD (gastroesophageal reflux disease): CODE(S): K21.9 - Gastro-esophageal reflux disease without esophagitis (22) Chronic anemia: CODE(S): D64.9 - Anemia, unspecified (23) Osteoarthritis of both knees: CODE(S): M17.0 - Bilateral primary osteoarthritis of knee PLAN: Plan This is an 83-year-old female who has been recently prone to falls. She injured her left lateral calf on April 04, 2024, and has been recently managed in this regard at our facility. Debridement of the patient's left lateral calf wound has been performed today. Because of the continued presence of necrotic and nonviable tissue within the wound, we are to continue the use of collagenase Santyl, which will be used topically on a daily basis. The patient has been instructed in the appropriate means of application. A prescription and coupon were previously provided. There also remains a small amount of nonviable tissue associated with the left knee wound, and collagenase Santyl is also to be used topically at this site on a daily basis. Blisters at the site of the right knee have subsequently resulted in an open wound, with some degree of necrotic and nonviable tissue. Therefore, collagenase Santyl is to be used topically at the site as well, also on a daily basis. Because of some developing periwound erythema associated with the right knee wound, suspected to be possible early cellulitis, a swab culture has been obtained for aerobic and anaerobic bacterial growth. Culture results will be awaited. It it has been learned that the patient previously had a traumatic wound on her right knee which was sustained in July 2023, and required suture closure and antibiotics for an infection which subsequently developed at the site. The prior wound at the site is coincidental, and may be entirely unrelated to current manifestations at this site. A Tubigrip is to be applied daily to the left lower extremity. The patient is to use collagen hydrogel topically to the left elbow wound on a daily basis. The patient has a completed her course of Cipro 500 mg p.o. twice daily for total of 10 days, related to the positive culture results of her left knee wound. The patient is to follow-up in 1 week for reevaluation. Total time: 28 minutes
[2024-05-27 15:38] VITALS: BP 185/96; PULSE 78; RESP 18; TEMP 36.1; BMI 24.8
--- NOTE | 2024-05-28 17:24 | HP.PCM_ITS ---
History of Present Illness Date of Service: 05/27/24 Chief Complaint: Traumatic wound of the left lateral calf, left knee, left elbow, and right knee History of Wound: This is an 83-year-old female who had [facility] to a traumatic wound on the left lateral calf. The wound occurred as a result of an impact with an open car door. The wound occurred on April 04, 2024, and the patient was initially seen and evaluated in the emergency department at [facility] in [place], [place]. She was treated with a prescription for cephalexin 500 mg p.o. twice daily for total of 10 days, which was completed. She subsequently presented for evaluation and management at the [facility], where initial treatment included the use of Aquacel topically, and Tubigrips. The patient has multiple pre-existing medical problems, which are listed below. These include atrial fibrillation for which she is on systemic anticoagulation therapy with Coumadin. During the course of the patient's treatment, the patient experienced a fall at home on April 29, 2024, in which she sustained a traumatic wound to her left knee and left elbow. She presented to the Emergency Department at [facility] shortly thereafter, where the left elbow wound was bandaged, and a skin flap of the left knee was secured over the wound using multiple Steri-Strips. It is also noted that a culture of the left lateral calf wound on April 16, 2024, was positive for Staphylococcus epidermidis, Corynebacterium amycolatum, Globacatella sulfidifaciens, and anaerobic cocci. As result, the patient was placed on oral linezolid and Flagyl, which was completed. [facility] Medical History (Updated 05/28/24 @ 17:[address] 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 use of anticoagulant Hyperlipidemia Tear of biceps muscle Osteoarthrosis Diverticulitis Essential hypertension Nonrheumatic mitral valve regurgitation Pulmonary hypertension Diastolic congestive heart failure Longstanding persistent atrial fibrillation AV block, complete Home Medications ?Medication ?Instructions ?Recorded ?Last Taken ?Type docusate sodium 100 mg capsule 100 mg PO BID constipation 06/03/21 12/16/23 History (Stool Softener) albuterol sulfate 90 mcg/actuation 2 puff inhalation Q6H PRN 03/22/22 Unknown History aerosol inhaler shortness of breath or wheezing Lactobacillus rhamnosus GG 5 1 tab PO DAILY PRN probiotic 02/20/23 Unknown History billion cell chewable tablet (Source [employer] Probiotics) ondansetron 4 mg disintegrating 4 mg PO Q6H PRN PRN Nausea #10 tabs 08/17/23 12/16/23 Rx tablet ibandronate 150 mg tablet 150 mg PO QMONTH 01/07/24 Unknown History potassium chloride 20 mEq 20 meq PO DAILY #90 tabs 02/06/24 Unknown Rx tablet,extended release polyethylene glycol 3350 17 17 g PO DAILY PRN constipation 02/07/24 Unknown History gram/dose oral powder (Miralax) warfarin 1 mg tablet 1 mg PO .COMPLEX anticoagulation 02/07/24 Unknown History naloxegol 25 mg tablet (Movantik) 25 mg PO QAM PRN 02/18/24 Unknown History losartan 100 mg tablet 100 mg PO DAILY #90 tabs 03/04/24 Unknown Rx calcitriol 0.25 mcg capsule 0.25 mcg PO DAILY see mar 04/07/24 Unknown History cephalexin 500 mg capsule 500 mg PO BID 04/07/24 Unknown History ergocalciferol (vitamin D2) 1,250 1,250 mcg PO QWEEK 04/07/24 Unknown History mcg (50,000 unit) capsule furosemide 40 mg tablet 40 mg PO BID edema, shortness of 04/07/24 Unknown History breath hydrocodone-acetaminophen 5-325mg 1 tab PO TID PRN Pain 04/07/24 Unknown History 5mg-325mg blflojfp-qvl-hgwqi acid 0.4 1 tab PO DAILY 04/07/24 Unknown History mg-lycopene 300 mcg-lutein 250 mcg tablet (Centrum Silver) carvedilol 12.5 mg tablet 12.5 mg PO BID htn #180 tabs 04/11/24 Unknown Rx Allergy/AdvReac Type Severity Reaction Status Date / Time Iodinated Contrast Media Allergy Rash Verified 05/05/24 13:29 (Iodinated Contrast- Oral and IV Dye) iodine Allergy Rash Verified 05/05/24 13:29 Penicillins (PCN) Allergy Rash Verified 05/05/24 13:29 ciprofloxacin (From Cipro) AdvReac Intermediate dizziness Verified 05/05/24 13:29 clindamycin AdvReac Intermediate nausea Verified 05/05/24 13:29 levofloxacin (From Levaquin) AdvReac Intermediate abdominal Verified 05/05/24 13:29 pain, nausea simvastatin AdvReac Intermediate Myalgias Verified 05/05/24 13:29 Family History Father , Age 82 CAD (coronary artery disease) Myocardial infarction CVA (cerebral vascular accident) Hypertension Mother , Age 94 Hypertension CVA (cerebral vascular accident) Sister Cancer Brother , Age 13 months from congenital heart defect Congenital heart defect Surgical History History of left heart catheterization (09/09/03) History of cardioversion (07/12/05) H/O colectomy History of bunionectomy History of appendectomy History of hysterectomy (1990) History of knee replacement (05/2018) History of tilt table evaluation (06/02/04) Hx of atrioventricular node ablation History of radiofrequency ablation procedure for cardiac arrhythmia Cardiac pacemaker in situ Social History household members: spouse Smoking Status: Never smoker alcohol intake: never substance use type: does not use caffeine: No Vital Signs Vital Signs Vital Signs: Weight Weight: 136 lb Body Mass Index (BMI) 24.8 Physical Exam Const alert, oriented x3, no apparent distress, average body habitus, no limitations and well nourished Constitutional Narrative: The patient's BMI is 24.9 General Appearance: cooperative, comfortable, well kempt and well developed Orientation / Consciousness: awake, oriented to person, oriented to place and oriented to time Exam Limitations: no limitations HEENT normocephalic and head/scalp atraumatic Head and Scalp: normal to inspection, normocephalic and atraumatic Face and Sinus: normal facial exam Eyes EOMs intact bilaterally General Eye: normal appearance of both eyes Neck full ROM Resp normal respiratory effort, normal air movement, no retractions and no use of accessory muscles Effort and Inspection: able to speak in complete sentences Auscultation: clear to auscultation bilaterally Extremity General Extremity: normal exam except as noted Skin Wounds: wounds noted Wound Narrative: An open wound is noted on the left lateral calf. There is no obvious sign of infection or cellulitis. There is a small amount of bioburden and nonviable tissue. Dimensions are documented elsewhere. This wound has shown significant decrease in size recently. There is also an abrasion on the patient's left elbow. Dimensions are documented elsewhere. There is no sign of infection or cellulitis. This appears to be decreasing in size, with evidence of active granulation tissue. There is an avulsion injury on the left knee, which had been recently treated in the Emergency Department, at which time a skin flap had been repositioned over the wound with hope that the flap would remain viable. However, the skin flap became necrotic, and the remaining nonviable tissue has been largely removed. Only a small portion of this nonviable tissue remains at the periphery. Slight erythema persists in the periwound area on the left knee. Blisters which have previously formed on the anterior portion of the right knee have now resulted in an open wound, with significant periwound erythema suggestive of possible cellulitis. A swab culture was obtained at the patient's last visit, and culture results have been noted, and an antibiotic prescribed which is appropriate to the results. Hair: normal Neuro oriented x3, CN's II-XII intact bilaterally, moves all extremities, no focal motor deficits and no sensory deficits noted Sensorium / Orientation: awake, alert, oriented to person, oriented to place and oriented to time Psych Appearance: grossly normal Speech: normal speech Thought Content: normal thought content Judgement: judgement good Debridement Note Debridement Note Wound debrided: Left lateral calf wound Laterality: Left Type of Debridement: Excisional debridement Anesthesia Used: 5% Lidocaine Gel and Cetacaine Depth: Down to and including healthy tissue and in the subcutaneous layer Percentage of wound debrided: 100 Instrument Used: 5mm curette Tissue Removed: Bioburden and nonviable tissue Severity: Fat Layer Exposed Amount of bleeding with debridement: Mild Bleeding Controlled with: Compression and gauze Patient tolerated procedure: Patient tolerated procedure well Post-Debridement Measurements and Additional Note: Post-Debridement Measurements/Treatment WC - Nurse 1 - General Ulcer Assessment Start: 04/29/24 14:02 Freq: Status: Active Protocol: WC.LOWEXT Activity Type Activity Date Activity User E-sign Co-sign Detail Recorded Client Recorded Date Recorded By Document 04/29/24 14:02 [facility] 10.10.25.7 04/29/24 14:22 BMF Document 05/06/24 14:57 KW l 05/06/24 15:14 KW Document 05/13/24 15:11 KW ; 05/13/24 15:28 KW Document 05/20/24 14:41 RB wound 05/20/24 15:04 RB Document 05/27/24 15:38 KW gj 05/27/24 15:58 KW 04/29/24 05/06/24 05/13/24 14:02 14:57 15:11 WC - Today's Visit Information Type of service Follow-up Visit Follow-up Visit Follow-up Visit (Physician/PICKED EDGE SEWING MACHINE OPERATOR (Physician/PICKED EDGE SEWING MACHINE OPERATOR (Physician/PICKED EDGE SEWING MACHINE OPERATOR ) ) ) Arrival Mode Ambulatory,Cane Ambulatory,Cane Ambulatory,Cane Transfer Assistance None Transfer Assist (Other) HUSB Accompanied by Patient Identification Verified (Name & Yes Yes Yes ) Patient Requires Transmission-Based Precautions Height and Weight Body Mass Index (BMI) 24.8 24.8 24.8 BMI Classification Normal Normal Normal Vital Signs Temperature (97.8 F-99.1 F) 97.7 F L 97.4 F L 98.0 F Temperature Source Temporal Temporal Temporal Pulse Rate (60-100) 78 88 85 Pulse Location Monitor Monitor Monitor Respiratory Rate (12-18) 16 18 18 Respiratory rate source Observation Observation Observation Oxygen Delivery Method Room Air Room Air Room Air Blood Pressure (90/60-120/80) 152/76 H 172/91 H 181/90 H Blood Pressure Mean 101 118 120 Source Monitor Monitor Monitor Position Sitting Semi-Fowlers Semi-Fowlers Blood Pressure Location Right Arm Right Arm Left Arm History Since Last Visit- (Skip if this is Patient's initial visit) Have you changed medications since your No No No last visit? Any new allergies or adverse reactions No No No Had a fall/change in ADL's that may No No No increase risk of falls Signs or symptoms of abuse and/or No No No neglect since last visit Have you been in the hospital since your Yes No No last visit? Has dressing in place as prescribed Yes Yes Yes Has compression in place as prescribed Yes Yes Yes Has offloadiing in place as prescribed N/A N/A N/A Experienced any changes in pain level or No No No management Left Footwear Diabetic Shoe Regular Shoe Regular Shoe Right Footwear Diabetic Shoe Regular Shoe Regular Shoe Pain Scale: 0-10 Numeric Is Patient Pain Free? Yes Yes Yes 05/20/24 05/27/24 14:41 15:38 WC - Today's Visit Information Type of service Follow-up Visit Follow-up Visit (Physician/PICKED EDGE SEWING MACHINE OPERATOR (Physician/PICKED EDGE SEWING MACHINE OPERATOR ) ) Arrival Mode Ambulatory Ambulatory,Cane Transfer Assistance None Transfer Assist (Other) Accompanied by Patient Identification Verified (Name & Yes Yes ) Patient Requires Transmission-Based No Precautions Height and Weight Body Mass Index (BMI) 24.8 24.8 BMI Classification Normal Normal Vital Signs Temperature (97.8 F-99.1 F) 97 F L 97.0 F L Temperature Source Temporal Temporal Pulse Rate (60-100) 61 78 Pulse Location Monitor Monitor Respiratory Rate (12-18) 18 18 Respiratory rate source Observation Observation Oxygen Delivery Method Room Air Blood Pressure (90/60-120/80) 167/68 H 185/96 H Blood Pressure Mean 101 125 Source Monitor Monitor Position Semi-Fowlers Semi-Fowlers Blood Pressure Location Left Arm Left Arm History Since Last Visit- (Skip if this is Patient's initial visit) Have you changed medications since your No No last visit? Any new allergies or adverse reactions No No Had a fall/change in ADL's that may No No increase risk of falls Signs or symptoms of abuse and/or No No neglect since last visit Have you been in the hospital since your No No last visit? Has dressing in place as prescribed Yes Yes Has compression in place as prescribed No Yes Has offloadiing in place as prescribed No N/A Experienced any changes in pain level or No No management Left Footwear Regular Shoe Right Footwear Regular Shoe Pain Scale: 0-10 Numeric Is Patient Pain Free? Yes Yes - Nurse 1 - General Ulcer Measurement Start: 04/29/24 14:02 Freq: Status: Active Protocol: Activity Type Activity Date Activity User E-sign Co-sign Detail Recorded Client Recorded Date Recorded By Document 04/29/24 14:02 [facility] 10.10.25.7 04/29/24 14:22 [facility] Document 05/06/24 14:57 KW l 07/09/24 15:14 KW Document 05/13/24 15:11 KW ; 05/13/24 15:28 KW Document 05/20/24 14:41 RB wound 05/20/24 15:04 RB Document 05/27/24 15:38 KW gj 05/27/24 15:58 KW 04/29/24 05/06/24 05/13/24 14:02 14:57 15:11 Wound Center Nurse 1 #4 right knee cluster -Combined with other wound -Current Size (cm) - Length -Current Size (cm) - Width -Current Size (cm) - Depth -Total Square Cm -Date of Last Picture (Recall this field) -Tunneling -Undermining/Tunneling -Circular Undermining -Exudate Amt -Exudate Type -Wound Margin -Granulation Amt -Granulation Quality -Slough/Fibrin -Necrosis Amt -Necrotic Tissue Type -Structure Exposed -Texture (Nhung-wound Skin Appearance) -Moisture (Nhung-wound Skin Appearance) -Color (Nhung-wound Skin Appearance) -Temperature (Nhung-wound Skin Appearance) -Tenderness on Palpation (Nhung-wound Skin Appearance) -Ulcer Cleansing -Foul Odor after Cleansing -Anesthetic Used #3- L KNEE SKIN TEAR POST FALL -Combined with other wound No -Current Size (cm) - Length 0.1 0.1 6.3 -Current Size (cm) - Width 0.1 0.1 4.2 -Current Size (cm) - Depth 0.1 0.1 0.1 -Total Square Cm 0.01 0.01 26.46 -Date of Last Picture (Recall this 04/29/24 field) -Photo Taken Yes -Tunneling -Undermining/Tunneling -Circular Undermining -Exudate Amt Medium None Present Small -Exudate Type Sanguineous Serosanguineous -Wound Margin Distinct, Outline Attached -Granulation Amt Small (1-33%) -Granulation Quality Red -Slough/Fibrin -Necrosis Amt Large (67-100%) -Necrotic Tissue Type Eschar -Structure Exposed -Texture (Nhung-wound Skin Appearance) Assessed, Assessed Assessed Localized Edema -Moisture (Nhung-wound Skin Appearance) Assessed Assessed Assessed -Color (Nhung-wound Skin Appearance) Assessed, Assessed Assessed Ecchymosis, Erythema -Temperature (Nhung-wound Skin No Abnormality No Abnormality No Abnormality Appearance) (Pt Warm) (Pt Warm) (Pt Warm) -Tenderness on Palpation (Nhung-wound Yes No Skin Appearance) -Ulcer Cleansing Rinsed/ Soap and Water Irrigated with Saline -Foul Odor after Cleansing No No -Anesthetic Used 5% Lidocaine 5% Lidocaine Gel Gel -Wound Comment(s) STERIS LEFT STERI STRIPS INTACT. APPLIED INTACT PER ER LAST EVENING @ [facility] #3- LFA SKIN TEAR -Combined with other wound No -Current Size (cm) - Length 2.1 2 2 -Current Size (cm) - Width 2.5 2.5 2.6 -Current Size (cm) - Depth 0.1 0.1 0.1 -Total Square Cm 5.25 5.0 5.2 -Date of Last Picture (Recall this 04/29/24 field) -Photo Taken Yes -Epithelialization None Present -Tunneling No -Undermining/Tunneling No -Circular Undermining No -Exudate Amt Medium Small Small -Exudate Type Serosanguineous Serosanguineous Serosanguineous -Wound Margin Distinct, Distinct, Distinct, Outline Outline Outline Attached Attached Attached -Granulation Amt Large (67-100%) Large (67-100%) Medium (34-66%) -Granulation Quality Red Red Red -Slough/Fibrin No -Necrosis Amt None Present (0 Medium (34-66%) %) -Necrotic Tissue Type Adherent Slough -Structure Exposed -Texture (Nhung-wound Skin Appearance) Assessed Assessed Assessed -Moisture (Nhung-wound Skin Appearance) Assessed Assessed Assessed -Color (Nhung-wound Skin Appearance) Assessed, Assessed Assessed, Ecchymosis, Erythema Erythema -Temperature (Nhung-wound Skin No Abnormality No Abnormality No Abnormality Appearance) (Pt Warm) (Pt Warm) (Pt Warm) -Tenderness on Palpation (Nhung-wound Yes No No Skin Appearance) -Ulcer Cleansing Soap and Water Rinsed/ Soap and Water Irrigated with Saline -Foul Odor after Cleansing No No No -Anesthetic Used 5% Lidocaine 5% Lidocaine 5% Lidocaine Gel Gel Gel -Wound Comment(s) #2 LT LAT LE -Combined with other wound No -Current Size (cm) - Length 4 4.2 3.6 -Current Size (cm) - Width 2.6 2.2 1.5 -Current Size (cm) - Depth 0.7 0.5 0.3 -Total Square Cm 10.4 9.24 5.40 -Date of Last Picture (Recall this 04/29/24 field) -Photo Taken Yes -Epithelialization Small 1-33% -Tunneling No -Undermining/Tunneling No -Circular Undermining No -Exudate Amt Large Medium Medium -Exudate Type Serosanguineous Serosanguineous Serosanguineous -Wound Margin Distinct, Distinct, Distinct, Outline Outline Outline Attached Attached Attached -Granulation Amt Medium (34-66%) Small (1-33%) Small (1-33%) -Granulation Quality Pale,Thayer Red Thayer -Slough/Fibrin Yes -Necrosis Amt Medium (34-66%) Large (67-100%) Large (67-100%) -Necrotic Tissue Type Adherent Slough Adherent Slough Adherent Slough -Structure Exposed -Texture (Nhung-wound Skin Appearance) Assessed, Assessed Assessed Localized Edema -Moisture (Nhung-wound Skin Appearance) Assessed Assessed Assessed -Color (Nhung-wound Skin Appearance) Assessed, Assessed, Assessed Erythema Erythema -Temperature (Nhung-wound Skin No Abnormality No Abnormality No Abnormality Appearance) (Pt Warm) (Pt Warm) (Pt Warm) -Tenderness on Palpation (Nhung-wound Yes No No Skin Appearance) -Ulcer Cleansing Soap and Water Rinsed/ Soap and Water Irrigated with Saline -Foul Odor after Cleansing No No No -Anesthetic Used 5% Lidocaine 5% Lidocaine 5% Lidocaine Gel Gel Gel Lower Limb Edema Present Right Calf (cm) 34 Right Ankle (cm) 21.6 Left Calf (cm) 38.8 Left Ankle (cm) 21.9 05/20/24 05/27/24 14:41 15:38 Wound Center Nurse 1 #4 right knee cluster -Combined with other wound No -Current Size (cm) - Length 2 3 -Current Size (cm) - Width 4.5 6.5 -Current Size (cm) - Depth 0.1 0.2 -Total Square Cm 9.0 19.5 -Date of Last Picture (Recall this 05/27/24 field) -Tunneling No -Undermining/Tunneling No -Circular Undermining No -Exudate Amt Medium Medium -Exudate Type Serosanguineous Serosanguineous -Wound Margin Distinct, Distinct, Outline Outline Attached Attached -Granulation Amt Medium (34-66%) Medium (34-66%) -Granulation Quality Thayer Red -Slough/Fibrin Yes -Necrosis Amt Medium (34-66%) Medium (34-66%) -Necrotic Tissue Type Adherent Slough Adherent Slough -Structure Exposed N/A -Texture (Nhung-wound Skin Appearance) Assessed Assessed -Moisture (Nhung-wound Skin Appearance) Assessed Assessed -Color (Nhung-wound Skin Appearance) Assessed, Assessed, Erythema Ecchymosis, Hemosiderin Staining -Temperature (Nhung-wound Skin No Abnormality No Abnormality Appearance) (Pt Warm) (Pt Warm) -Tenderness on Palpation (Nhung-wound No Yes Skin Appearance) -Ulcer Cleansing Wound Cleanser Rinsed/ Irrigated with Saline -Foul Odor after Cleansing No No -Anesthetic Used 4% Lidocaine 4% Lidocaine Solution Solution #3- L KNEE SKIN TEAR POST FALL -Combined with other wound No -Current Size (cm) - Length 4.5 4 -Current Size (cm) - Width 4 3.5 -Current Size (cm) - Depth 0.1 0.2 -Total Square Cm 18.0 14.0 -Date of Last Picture (Recall this 05/27/24 field) -Photo Taken -Tunneling No -Undermining/Tunneling No -Circular Undermining No -Exudate Amt Large Medium -Exudate Type Serosanguineous Serosanguineous -Wound Margin Distinct, Distinct, Outline Outline Attached Attached -Granulation Amt Medium (34-66%) Medium (34-66%) -Granulation Quality Thayer Red -Slough/Fibrin Yes -Necrosis Amt Medium (34-66%) Medium (34-66%) -Necrotic Tissue Type Adherent Slough Adherent Slough -Structure Exposed N/A -Texture (Nhung-wound Skin Appearance) Assessed Localized Edema -Moisture (Nhung-wound Skin Appearance) Assessed Assessed -Color (Nhung-wound Skin Appearance) Assessed, Assessed, Erythema Ecchymosis, Hemosiderin Staining -Temperature (Nhung-wound Skin No Abnormality No Abnormality Appearance) (Pt Warm) (Pt Warm) -Tenderness on Palpation (Nhung-wound No Yes Skin Appearance) -Ulcer Cleansing Soap and Water -Foul Odor after Cleansing -Anesthetic Used 4% Lidocaine 4% Lidocaine Solution Solution -Wound Comment(s) #3- LFA SKIN TEAR -Combined with other wound No -Current Size (cm) - Length 1 0.9 -Current Size (cm) - Width 1 1 -Current Size (cm) - Depth 0.1 0.1 -Total Square Cm 1 0.9 -Date of Last Picture (Recall this 05/27/24 field) -Photo Taken -Epithelialization -Tunneling No -Undermining/Tunneling No -Circular Undermining No -Exudate Amt Large None Present -Exudate Type Serosanguineous -Wound Margin Distinct, Distinct, Outline Outline Attached Attached -Granulation Amt Medium (34-66%) -Granulation Quality Thayer -Slough/Fibrin Yes -Necrosis Amt Medium (34-66%) -Necrotic Tissue Type Adherent Slough -Structure Exposed N/A -Texture (Nhung-wound Skin Appearance) Assessed Assessed -Moisture (Nhung-wound Skin Appearance) Assessed Assessed -Color (Nhung-wound Skin Appearance) Assessed, Assessed, Erythema Ecchymosis, Hemosiderin Staining -Temperature (Nhung-wound Skin No Abnormality No Abnormality Appearance) (Pt Warm) (Pt Warm) -Tenderness on Palpation (Nhung-wound No No Skin Appearance) -Ulcer Cleansing Wound Cleanser Rinsed/ Irrigated with Saline -Foul Odor after Cleansing No No -Anesthetic Used 4% Lidocaine 4% Lidocaine Solution Solution -Wound Comment(s) SCABBED #2 LT LAT LE -Combined with other wound No -Current Size (cm) - Length 3 3.2 -Current Size (cm) - Width 1 0.6 -Current Size (cm) - Depth 0.3 0.3 -Total Square Cm 3 1.92 -Date of Last Picture (Recall this 05/27/24 field) -Photo Taken -Epithelialization Small 1-33% -Tunneling No -Undermining/Tunneling No -Circular Undermining No -Exudate Amt Medium Medium -Exudate Type Serosanguineous Serosanguineous -Wound Margin Thickened & Distinct, Rolled Under Outline Attached -Granulation Amt Medium (34-66%) Small (1-33%) -Granulation Quality Thayer Thayer,Red -Slough/Fibrin Yes -Necrosis Amt Medium (34-66%) Medium (34-66%) -Necrotic Tissue Type Adherent Slough Adherent Slough -Structure Exposed N/A -Texture (Nhung-wound Skin Appearance) Assessed Assessed -Moisture (Nhung-wound Skin Appearance) Assessed -Color (Nhung-wound Skin Appearance) Assessed, Assessed Erythema -Temperature (Nhung-wound Skin No Abnormality No Abnormality Appearance) (Pt Warm) (Pt Warm) -Tenderness on Palpation (Nhung-wound No Yes Skin Appearance) -Ulcer Cleansing Wound Cleanser Rinsed/ Irrigated with Saline -Foul Odor after Cleansing No No -Anesthetic Used 4% Lidocaine 4% Lidocaine Solution Solution Lower Limb Edema Present Yes Right Calf (cm) Right Ankle (cm) Left Calf (cm) 35.5 Left Ankle (cm) 22 WC - Nurse 2 - General Ulcer CM Notes Start: 04/29/24 14:02 Freq: Status: Active Protocol: Activity Type Activity Date Activity User E-sign Co-sign Detail Recorded Client Recorded Date Recorded By Document 04/29/24 14:34 JF [id number] 04/29/24 14:44 JF Document 05/06/24 15:45 JF 000 05/06/24 15:52 JF Document 05/13/24 15:39 DS 1 05/13/24 15:54 DS Edit Result 05/13/24 15:39 DS (1) 1 05/13/24 15:57 DS Edit Result 05/13/24 15:39 DS (2) 1 05/21/24 08:30 DS Document 05/20/24 15:24 DS 1 05/20/24 15:44 DS Edit Result 05/20/24 15:24 DS (3) 1 05/21/24 11:30 DS Document 05/27/24 16:05 JF 0000 05/27/24 16:22 JF (1) #4 right knee cluster - Correct Patient => No - Correct Side, Site, Position => No - Correct Procedure => No - Procedure Performed => No - Wound/Ulcer Outcome => Not Healed (2) #4 right knee cluster - Correct Patient No => - Correct Side, Site, Position No => - Correct Procedure No => - Procedure Performed No => - Wound/Ulcer Outcome Not Healed => (3) #4 right knee cluster - Debridement, SubQ, ea addt'l 20sq cm => 1 or part thereof #3- L KNEE SKIN TEAR POST FALL - Debridement - Subq, 1st 20sq cm Yes => No #3- LFA SKIN TEAR - Debridement - Subq, 1st 20sq cm Yes => No 04/29/24 05/06/24 05/13/24 14:34 15:45 15:39 Wound Center Nurse 2 #4 right knee cluster -Time -Correct Patient -Correct Side, Site, Position -Correct Procedure -Procedure Performed -Type of Procedure -Clinical Debridement -Tissue Removed -Post Debridement (cm) - Length -Post Debridement (cm) - Width -Post Debridement (cm) - Depth -Total Square (Post) (cm) -Area of Debridement (cm) - Length -Area of Debridement (cm) - Width -Total Square (Area) (cm) -Tunneling -Undermining/Tunneling -Circular Undermining -Wound/Ulcer Outcome -Ulcer Cleansing -Foul Odor after Cleansing -Bioengineered Tissue -Bleeding Controlled with -Treatment Response -Offloading -Debridement - Subq, 1st 20sq cm -Debridement, SubQ, ea addt'l 20sq cm or part thereof #3- L KNEE SKIN TEAR POST FALL -Time 15:48 15:39 -Correct Patient No Yes Yes -Correct Side, Site, Position No Yes Yes -Correct Procedure No Yes Yes -Procedure Performed No Yes Yes -Type of Procedure Debridement Debridement -Clinical Debridement Subcutaneous Subcutaneous -Tissue Removed Subcutaneous Subcutaneous -Post Debridement (cm) - Length 4.5 4.8 -Post Debridement (cm) - Width 3.5 3.2 -Post Debridement (cm) - Depth 0.1 0.1 -Total Square (Post) (cm) 15.75 15.36 -Area of Debridement (cm) - Length 4.5 4.8 -Area of Debridement (cm) - Width 3.5 3.2 -Total Square (Area) (cm) 15.75 15.36 -Tunneling No No -Undermining/Tunneling No No -Circular Undermining No No -Wound/Ulcer Outcome Not Healed Not Healed Not Healed -Ulcer Cleansing Rinsed/ Irrigated with Saline -Foul Odor after Cleansing No -Bioengineered Tissue No -Bleeding Controlled with Pressure Pressure -Treatment Response Procedure Procedure Tolerated Well Tolerated Well -Offloading No -Debridement - Subq, 1st 20sq cm No Yes #3- LFA SKIN TEAR -Time 15:46 15:39 -Correct Patient No Yes Yes -Correct Side, Site, Position No Yes Yes -Correct Procedure No Yes Yes -Procedure Performed No Yes Yes -Type of Procedure Debridement Debridement -Clinical Debridement Subcutaneous Subcutaneous -Tissue Removed Subcutaneous Subcutaneous -Post Debridement (cm) - Length 1.7 1.7 -Post Debridement (cm) - Width 2.2 1.5 -Post Debridement (cm) - Depth 0.1 0.1 -Total Square (Post) (cm) 3.74 2.55 -Area of Debridement (cm) - Length 1.7 1.7 -Area of Debridement (cm) - Width 2.2 1.5 -Total Square (Area) (cm) 3.74 2.55 -Tunneling No No -Undermining/Tunneling No No -Circular Undermining No No -Wound/Ulcer Outcome Not Healed Not Healed Not Healed -Ulcer Cleansing -Foul Odor after Cleansing -Bioengineered Tissue -Bleeding Controlled with Pressure Pressure -Treatment Response Procedure Procedure Tolerated Well Tolerated Well -Offloading No -Debridement - Subq, 1st 20sq cm No No #2 LT LAT LE -Time 14:43 15:49 15:39 -Correct Patient Yes Yes Yes -Correct Side, Site, Position Yes Yes Yes -Correct Procedure Yes Yes Yes -Procedure Performed Yes Yes Yes -Type of Procedure Debridement Debridement Debridement -Clinical Debridement Subcutaneous Subcutaneous Subcutaneous -Tissue Removed Subcutaneous Dermis Subcutaneous -Post Debridement (cm) - Length 4.1 4 3.5 -Post Debridement (cm) - Width 2.8 2.4 1.6 -Post Debridement (cm) - Depth 0.4 0.3 0.7 -Total Square (Post) (cm) 11.48 9.6 5.60 -Area of Debridement (cm) - Length 4.1 4 3.5 -Area of Debridement (cm) - Width 2.8 2.4 1.6 -Total Square (Area) (cm) 11.48 9.6 5.60 -Tunneling No No No -Undermining/Tunneling No No No -Circular Undermining No No No -Wound/Ulcer Outcome Not Healed Not Healed Not Healed -Ulcer Cleansing Rinsed/ Rinsed/ Irrigated with Irrigated with Saline Saline -Foul Odor after Cleansing No No -Bioengineered Tissue No No -Bleeding Controlled with Pressure Pressure Pressure -Treatment Response Procedure Procedure Procedure Tolerated Well Tolerated Well Tolerated Well -Offloading No No -Debridement - Subq, 1st 20sq cm Yes Yes Yes -Debridement, SubQ, ea addt'l 20sq cm 1 or part thereof Pain Scale: 0-10 Numeric Is Patient Pain Free? Yes Yes No right knee -Description -Intensity -Pain Aggravating Factors -Alleviating Factors/Interventions left knee -Description Sharp,Aching -Intensity 5 -Duration (hours) Acute -Pain Behavior Moaning -Pain Aggravating Factors Debridement -Alleviating Factors/Interventions Will continue to monitor, Emotional Support 05/20/24 05/27/24 15:24 16:05 Wound Center Nurse 2 #4 right knee cluster -Time 15:25 16:06 -Correct Patient Yes Yes -Correct Side, Site, Position Yes Yes -Correct Procedure Yes Yes -Procedure Performed Yes Yes -Type of Procedure Debridement Debridement -Clinical Debridement Subcutaneous Subcutaneous -Tissue Removed Subcutaneous Subcutaneous -Post Debridement (cm) - Length 2.0 1.5 -Post Debridement (cm) - Width 5.8 5.5 -Post Debridement (cm) - Depth 0.1 0.4 -Total Square (Post) (cm) 11.60 8.25 -Area of Debridement (cm) - Length 2.0 1.5 -Area of Debridement (cm) - Width 5.8 5.5 -Total Square (Area) (cm) 11.60 8.25 -Tunneling No No -Undermining/Tunneling No No -Circular Undermining No No -Wound/Ulcer Outcome Not Healed Not Healed -Ulcer Cleansing Rinsed/ Irrigated with Saline -Foul Odor after Cleansing No -Bioengineered Tissue No -Bleeding Controlled with Pressure Pressure -Treatment Response Procedure Procedure Tolerated Well Tolerated Well -Offloading No -Debridement - Subq, 1st 20sq cm Yes No -Debridement, SubQ, ea addt'l 20sq cm 1 or part thereof #3- L KNEE SKIN TEAR POST FALL -Time 15:25 16:06 -Correct Patient Yes Yes -Correct Side, Site, Position Yes Yes -Correct Procedure Yes Yes -Procedure Performed Yes Yes -Type of Procedure Debridement Debridement -Clinical Debridement Subcutaneous Subcutaneous -Tissue Removed Subcutaneous Subcutaneous -Post Debridement (cm) - Length 4.5 4.5 -Post Debridement (cm) - Width 3.5 2.8 -Post Debridement (cm) - Depth 0.1 0.2 -Total Square (Post) (cm) 15.75 12.60 -Area of Debridement (cm) - Length 4.5 4.5 -Area of Debridement (cm) - Width 3.5 2.8 -Total Square (Area) (cm) 15.75 12.60 -Tunneling No No -Undermining/Tunneling No No -Circular Undermining No No -Wound/Ulcer Outcome Not Healed Not Healed -Ulcer Cleansing Rinsed/ Irrigated with Saline -Foul Odor after Cleansing No -Bioengineered Tissue No -Bleeding Controlled with Pressure Pressure -Treatment Response Procedure Procedure Tolerated Well Tolerated Well -Offloading No -Debridement - Subq, 1st 20sq cm No No #3- LFA SKIN TEAR -Time 15:26 16:20 -Correct Patient Yes Yes -Correct Side, Site, Position Yes Yes -Correct Procedure Yes Yes -Procedure Performed Yes Yes -Type of Procedure Debridement Debridement -Clinical Debridement Subcutaneous Subcutaneous -Tissue Removed Subcutaneous Subcutaneous -Post Debridement (cm) - Length 1.1 1.2 -Post Debridement (cm) - Width 1.0 1.3 -Post Debridement (cm) - Depth 0.1 0.1 -Total Square (Post) (cm) 1.10 1.56 -Area of Debridement (cm) - Length 1.1 1.2 -Area of Debridement (cm) - Width 1.0 1.3 -Total Square (Area) (cm) 1.10 1.56 -Tunneling No No -Undermining/Tunneling No No -Circular Undermining No No -Wound/Ulcer Outcome Not Healed Not Healed -Ulcer Cleansing Rinsed/ Irrigated with Saline -Foul Odor after Cleansing No -Bioengineered Tissue No -Bleeding Controlled with Pressure Pressure -Treatment Response Procedure Procedure Tolerated Well Tolerated Well -Offloading No -Debridement - Subq, 1st 20sq cm No No #2 LT LAT LE -Time 15:24 16:09 -Correct Patient Yes Yes -Correct Side, Site, Position Yes Yes -Correct Procedure Yes Yes -Procedure Performed Yes Yes -Type of Procedure Debridement Debridement -Clinical Debridement Subcutaneous Subcutaneous -Tissue Removed Subcutaneous Subcutaneous -Post Debridement (cm) - Length 3.3 3.0 -Post Debridement (cm) - Width 1.2 0.7 -Post Debridement (cm) - Depth 0.3 0.1 -Total Square (Post) (cm) 3.96 2.10 -Area of Debridement (cm) - Length 3.3 3.0 -Area of Debridement (cm) - Width 1.2 0.7 -Total Square (Area) (cm) 3.96 2.10 -Tunneling No No -Undermining/Tunneling No No -Circular Undermining No No -Wound/Ulcer Outcome Not Healed Not Healed -Ulcer Cleansing Rinsed/ Irrigated with Saline -Foul Odor after Cleansing No -Bioengineered Tissue No -Bleeding Controlled with Pressure Pressure -Treatment Response Procedure Procedure Tolerated Well Tolerated Well -Offloading No -Debridement - Subq, 1st 20sq cm No Yes -Debridement, SubQ, ea addt'l 20sq cm 1 or part thereof Pain Scale: 0-10 Numeric Is Patient Pain Free? No Yes right knee -Description Aching -Intensity 8 -Pain Aggravating Factors Debridement -Alleviating Factors/Interventions Will continue to monitor, Emotional Support left knee -Description -Intensity -Duration (hours) -Pain Behavior -Pain Aggravating Factors -Alleviating Factors/Interventions WC - Nurse 3 - General Ulcer D/C NN Start: 04/29/24 14:02 Freq: Status: Active Protocol: Activity Type Activity Date Activity User E-sign Co-sign Detail Recorded Client Recorded Date Recorded By Document 04/29/24 14:59 KW z 04/29/24 15:01 KW Edit Result 04/29/24 14:59 KW (1) z 04/29/24 15:03 KW Document 05/06/24 16:18 DL [id number] 05/06/24 16:20 DL Document 05/13/24 16:18 KW ; 05/13/24 16:20 KW Document 05/21/24 09:48 KW d 05/21/24 09:50 KW (1) #2 LT LAT LE - Aquacel Extra 1 => 2 04/29/24 05/06/24 05/13/24 14:59 16:18 16:18 Wound Care Center Nurse 3 #4 right knee cluster -Ulcer Cleansing Rinsed/ Irrigated with Saline -Primary Dressing Applied C Hydrogel ($) -Other Dressing -Primary Dressing Covered/Secured with Dry Gauze,Dry Gauze & Roll Gauze,Secured with Tape #3- L KNEE SKIN TEAR POST FALL -Ulcer Cleansing Rinsed/ Irrigated with Saline -Foul Odor after Cleansing No -Primary Dressing Applied NonAdherent Contact Layer -Other Dressing ABD HYDROGEL -Primary Dressing Covered/Secured with Dry Gauze & Dry Gauze,Dry Dry Gauze,Dry Roll Gauze, Gauze & Roll Gauze & Roll Secured with Gauze Gauze,Secured Tape with Tape #3- LFA SKIN TEAR -Ulcer Cleansing Rinsed/ Irrigated with Saline -Foul Odor after Cleansing No -Primary Dressing Applied C Hydrogel ($), NonAdherent NonAdherent Contact Layer Contact Layer -Other Dressing hydrogel HYDROGEL -Primary Dressing Covered/Secured with Dry Gauze & Dry Gauze & Dry Gauze,Dry Roll Gauze, Roll Gauze, Gauze & Roll Secured with Secured with Gauze,Secured Tape Tape with Tape #2 LT LAT LE -Ulcer Cleansing Rinsed/ Irrigated with Saline -Foul Odor after Cleansing No -Primary Dressing Applied Aquacel Extra Aquacel Extra -Other Dressing HYDROGEL -Primary Dressing Covered/Secured with Dry Gauze & Dry Gauze & Dry Gauze,Dry Roll Gauze, Roll Gauze, Gauze & Roll Secured with Secured with Gauze,Secured Tape Tape with Tape -Aquacel Extra 2 1 LT FORARM -Tubular Bandage -Size of Tubigrip Used -Size C ($) Right -Compression Wrap Left -Compression Wrap -Tubular Bandage Single Layer Single Layer -Size of Tubigrip Used Size E Size E -Size D ($) -Size E ($) 1 2 -Other CHRISS Treatment Response Procedure Tolerated Well Pain Scale: 0-10 Numeric Is Patient Pain Free? Yes Yes No left knee -Description Aching -Intensity 5 -Duration (hours) Chronic -Pain Behavior Guarding -Pain Aggravating Factors Exercise/ Activity -Alleviating Factors/Interventions Medication -Effectiveness of Alleviating Factor/ Moderately Intervention effective WC - Visit Discharge Discharge Condition Stable Stable Stable Ambulatory Status Ambulatory,Cane Ambulatory, Ambulatory,Cane Walker Transportation Private Auto Private Auto Private Auto Accompanied by Medication Reconcilliation completed & No No provided to patient/care provider Clinical Summary of Care Provided Yes Yes 05/21/24 09:48 Wound Care Center Nurse 3 #4 right knee cluster -Ulcer Cleansing -Primary Dressing Applied -Other Dressing santyl -Primary Dressing Covered/Secured with Dry Gauze & Roll Gauze, Secured with Tape #3- L KNEE SKIN TEAR POST FALL -Ulcer Cleansing -Foul Odor after Cleansing -Primary Dressing Applied -Other Dressing santyl -Primary Dressing Covered/Secured with Dry Gauze & Roll Gauze, Secured with Tape #3- LFA SKIN TEAR -Ulcer Cleansing -Foul Odor after Cleansing -Primary Dressing Applied -Other Dressing hydrogel -Primary Dressing Covered/Secured with Dry Gauze & Roll Gauze, Secured with Tape #2 LT LAT LE -Ulcer Cleansing -Foul Odor after Cleansing -Primary Dressing Applied -Other Dressing santyl -Primary Dressing Covered/Secured with Dry Gauze -Aquacel Extra LT FORARM -Tubular Bandage Single Layer -Size of Tubigrip Used Size C -Size C ($) 1 Right -Compression Wrap Chriss Wrap Left -Compression Wrap Chriss Wrap -Tubular Bandage Single Layer -Size of Tubigrip Used Size D -Size D ($) 1 -Size E ($) -Other Treatment Response Pain Scale: 0-10 Numeric Is Patient Pain Free? Yes left knee -Description -Intensity -Duration (hours) -Pain Behavior -Pain Aggravating Factors -Alleviating Factors/Interventions -Effectiveness of Alleviating Factor/ Intervention WC - Visit Discharge Discharge Condition Ambulatory Status Transportation Accompanied by Medication Reconcilliation completed & provided to patient/care provider Clinical Summary of Care Provided Additional Wound Wound debrided: Left knee wound Laterality: Left Type of Debridement: Excisional debridement Anesthesia Used: 5% Lidocaine Gel and Cetacaine Depth: Down to and including healthy tissue and in the subcutaneous layer Percentage of wound debrided: 100 Instrument Used: 5mm curette, Forceps and - (Scissors) Tissue Removed: Bioburden and devitalized tissue remaining from necrosed skin flap Severity: Fat Layer Exposed Amount of bleeding with debridement: Mild Bleeding Controlled with: Compression and gauze Patient tolerated procedure: Patient tolerated procedure well Additional Wound Wound debrided: Left elbow Laterality: Left Type of Debridement: Excisional debridement Anesthesia Used: 5% Lidocaine Gel and Cetacaine Depth: Down to and including healthy tissue and in the subcutaneous layer Percentage of wound debrided: 100 Instrument Used: 3mm curette Tissue Removed: Bioburden Severity: Fat Layer Exposed Amount of bleeding with debridement: Mild Bleeding Controlled with: Compression and gauze Patient tolerated procedure: Patient tolerated procedure well Additional Wound Wound debrided: Right knee Laterality: Right Type of Debridement: Excisional debridement Anesthesia Used: 5% Lidocaine Gel and Cetacaine Depth: Down to and including healthy tissue and in the subcutaneous layer Percentage of wound debrided: 100 Instrument Used: 5mm curette Severity: Fat Layer Exposed Amount of bleeding with debridement: Mild Bleeding Controlled with: Compression and gauze Patient tolerated procedure: Patient tolerated procedure well Charges/Coding Multi Select Codes Integumentary Integumentary CPT Codes: 47425 Pili subq tissue 20 sq cm/< (40806 Right leg; 41391 Left elbow; 41498 and 15137 Left leg) Assessment/Plan Assessment/Plan (1) Non-pressure 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 layer exposed: CODE(S): L97.222 - Non-pressure 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 layer exposed (2) Traumatic open wound of left lower leg: CODE(S): S81.802A - Unspecified open wound, left lower leg, initial encounter QUALIFIERS: Encounter type: subsequent encounter Qualified Code(s): S81.802D - Unspecified open wound, left lower leg, subsequent encounter (3) Wound, open, elbow: CODE(S): S51.009A - Unspecified open wound of unspecified elbow, initial encounter QUALIFIERS: Encounter type: subsequent encounter Laterality: left Qualified Code(s): S51.002D - Unspecified open wound of left elbow, subsequent encounter (4) Open wound of knee: CODE(S): S81.009A - Unspecified open wound, unspecified knee, initial encounter QUALIFIERS: Encounter type: subsequent encounter Laterality: left Qualified Code(s): S81.002D - Unspecified open wound, left knee, subsequent encounter (5) Open wound of knee: CODE(S): S81.009A - Unspecified open wound, unspecified knee, initial encounter QUALIFIERS: Encounter type: subsequent encounter Laterality: right Qualified Code(s): S81.001D - Unspecified open wound, right knee, subsequent encounter (6) Non-pressure chronic ulcer of left 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: CODE(S): L97.922 - Non-pressure chronic ulcer of unspecified part of left 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 (7) Non-pressure chronic ulcer of right 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: CODE(S): L97.912 - Non-pressure chronic ulcer of unspecified part of right 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 (8) Current use of nursing home anticoagulation: CODE(S): Z79.01 - director long term care (current) use of anticoagulants (9) Hammer toe of right foot: CODE(S): M20.41 - Other hammer toe(s) (acquired), right foot (10) Venous (peripheral) insufficiency: CODE(S): I87.2 - Venous insufficiency (chronic) (peripheral) (11) Atrial fibrillation: CODE(S): I48.91 - Unspecified atrial fibrillation (12) Shortness of breath: CODE(S): R06.02 - Shortness of breath (13) CAD (coronary artery disease): CODE(S): I25.10 - Atherosclerotic heart disease of [place] coronary artery without angina pectoris QUALIFIERS: Coronary Disease-Associated Artery/Lesion type: [place] artery [place] vs. transplanted heart: [place] heart Associated angina: without angina Qualified Code(s): I25.10 - Atherosclerotic heart disease of [place] coronary artery without angina pectoris (14) Essential hypertension: CODE(S): I10 - Essential (primary) hypertension (15) Cardiac pacemaker in situ: CODE(S): Z95.0 - Presence of cardiac pacemaker (16) AV block, complete: CODE(S): I44.2 - Atrioventricular block, complete (17) History of radiofrequency ablation procedure for cardiac arrhythmia: CODE(S): Z98.890 - Other specified postprocedural states (18) Hx of atrioventricular node ablation: CODE(S): Z98.890 - Other specified postprocedural states (19) Diastolic congestive heart failure: CODE(S): I50.30 - Unspecified diastolic (congestive) heart failure QUALIFIERS: Heart failure chronicity: chronic Qualified Code(s): I50.32 - Chronic diastolic (congestive) heart failure (20) Pulmonary hypertension: CODE(S): I27.20 - Pulmonary hypertension, unspecified (21) Nonrheumatic mitral valve regurgitation: CODE(S): I34.0 - Nonrheumatic mitral (valve) insufficiency (22) Hyperlipidemia: CODE(S): E78.5 - Hyperlipidemia, unspecified QUALIFIERS: Hyperlipidemia type: unspecified Qualified Code(s): E78.5 - Hyperlipidemia, unspecified (23) GERD (gastroesophageal reflux disease): CODE(S): K21.9 - Gastro-esophageal reflux disease without esophagitis (24) Chronic anemia: CODE(S): D64.9 - Anemia, unspecified (25) Osteoarthritis of both knees: CODE(S): M17.0 - Bilateral primary osteoarthritis of knee PLAN: Plan This is an 83-year-old female who has been recently prone to falls. She injured her left lateral calf on April 04, 2024, and has been recently managed in this regard at our facility. Debridement of the patient's left lateral calf wound has been performed today. Because of the continued presence of a small amount of necrotic and nonviable tissue within the wound, we are to continue the use of collagenase Santyl, which will be used topically on a daily basis. The patient has been instructed in the appropriate means of application. A prescription and coupon were previously provided. There also remains a small amount of nonviable tissue associated with the left knee wound, and collagenase Santyl is also to be used topically at this site on a daily basis. Blisters at the site of the right knee have subsequently resulted in an open wound, with some degree of necrotic and nonviable tissue. Therefore, collagenase Santyl is to be used topically at the site as well, also on a daily basis. Because of some developing periwound erythema associated with the right knee wound, suspected to be possible early cellulitis, a swab culture was obtained last week for aerobic and anaerobic bacterial growth. Culture results have demonstrated the presence of Stenotrophomonas maltophilia and Staphylococcus homimis hominis. As a result, the patient has been placed on Bactrim double strength p.o. twice daily for a total of 10 days. A Tubigrip is to be applied daily to the left lower extremity. The patient relates some difficulty in applying the Tubigrip compression, and indicates her desire to obtain a CircAid Velcro compression garment. Effort will be made to assist the patient in obtaining this form of compression for her lower extremities. The patient is to use collagen hydrogel topically to the left elbow wound on a daily basis. The patient has a completed her course of Cipro 500 mg p.o. twice daily for total of 10 days, related to the positive culture results of her left knee wound. Nonetheless, persisting erythema is noted about the left knee wound, and another swab culture has been obtained. The results will be awaited. The patient is to follow-up in 1 week for reevaluation. Total time: 29 minutes
--- NOTE | 2024-05-30 09:29 | WC ---
PHOTO 05/27/24 LT MARCIA
--- NOTE | 2024-05-30 09:29 | WC ---
PHOTO 05/27/24 LEFT KNEE
--- NOTE | 2024-05-30 09:30 | WC ---
PHOTO RIGHT KNEE CLUSTER 05/27/24
--- NOTE | 2024-05-30 09:31 | WC ---
PHOTO LT KNEE 05/27/24
== END 2024-05-28 23:59 | disposition home or self-care (01) ==
LOC: WC 15:00
PROVIDERS: PCP Family Medicine; Referring Provider Nurse Practitioner Family; Visit Provider Surgery
DX: I87.2 Venous insufficiency (chronic) (peripheral) (principal); L97.222 Non-pressure 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 layer exposed; I11.0 Hypertensive heart disease with heart failure; I50.32 Chronic diastolic (congestive) heart failure; I27.20 Pulmonary hypertension, unspecified; I48.91 Unspecified atrial fibrillation; I44.2 Atrioventricular block, complete; I25.10 Atherosclerotic heart disease of native coronary artery without angina pectoris; M17.0 Bilateral primary osteoarthritis of knee; S81.002A Unspecified open wound, left knee, initial encounter; Z95.0 Presence of cardiac pacemaker; M20.41 Other hammer toe(s) (acquired), right foot; Z79.01 Long term (current) use of anticoagulants; E78.5 Hyperlipidemia, unspecified; Z79.83 Long term (current) use of bisphosphonates; K21.9 Gastro-esophageal reflux disease without esophagitis; Z79.899 Other long term (current) drug therapy; W22.8XXA Striking against or struck by other objects, initial encounter; S50.312A Abrasion of left elbow, initial encounter; W19.XXXA Unspecified fall, initial encounter
CPT/HCPCS: 11042; 11045; 87070; 87075; 87077; 87186; 87205

== ENCOUNTER 2024-06-01 09:57 | Emergency (ER) | payer MEDICARE, SELFPAY ==
[2024-06-01 09:58] VITALS: BP 186/90; PULSE 61; RESP 18; TEMP 36.6; O2SAT 99
[2024-06-01 10:00] VITALS: BMI 24.8
--- NOTE | 2024-06-01 10:09 | EX.ED.GENINJ ---
HPI History of Present Illness Chief Complaint: Nausea/Vomiting [facility] Medical History (Updated 05/28/24 @ 17:[address] 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 Open wound of knee Non-pressure 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 layer exposed Open wound of knee Wound, open, elbow Traumatic open wound of left lower leg Osteoarthritis of both knees Chronic anemia GERD (gastroesophageal reflux disease) Atrial fibrillation Pneumonia Hyponatremia CAD (coronary artery disease) Pericardial effusion nursing home current use of anticoagulant Hyperlipidemia Tear of biceps muscle Osteoarthrosis Diverticulitis Essential hypertension Nonrheumatic mitral valve regurgitation Pulmonary hypertension Diastolic congestive heart failure Longstanding persistent atrial fibrillation AV block, complete Home Medications ?Medication ?Instructions ?Recorded ?Last Taken ?Type docusate sodium 100 mg capsule 100 mg PO BID constipation 06/03/21 12/16/23 History (Stool Softener) albuterol sulfate 90 mcg/actuation 2 puff inhalation Q6H PRN 03/22/22 Unknown History aerosol inhaler shortness of breath or wheezing Lactobacillus rhamnosus GG 5 1 tab PO DAILY PRN probiotic 02/20/23 Unknown History billion cell chewable tablet ([employer] Probiotics) ondansetron 4 mg disintegrating 4 mg PO Q6H PRN PRN Nausea #10 tabs 08/17/23 12/16/23 Rx tablet ibandronate 150 mg tablet 150 mg PO QMONTH 01/07/24 Unknown History potassium chloride 20 mEq 20 meq PO DAILY #90 tabs 02/06/24 Unknown Rx tablet,extended release polyethylene glycol 3350 17 17 g PO DAILY PRN constipation 02/07/24 Unknown History gram/dose oral powder (Miralax) warfarin 1 mg tablet 1 mg PO .COMPLEX anticoagulation 02/07/24 Unknown History naloxegol 25 mg tablet (Movantik) 25 mg PO QAM PRN 02/18/24 Unknown History losartan 100 mg tablet 100 mg PO DAILY #90 tabs 03/04/24 Unknown Rx calcitriol 0.25 mcg capsule 0.25 mcg PO DAILY see 04/07/24 Unknown History cephalexin 500 mg capsule 500 mg PO BID 04/07/24 Unknown History ergocalciferol (vitamin D2) 1,250 1,250 mcg PO QWEEK 04/07/24 Unknown History mcg (50,000 unit) capsule furosemide 40 mg tablet 40 mg PO BID edema, shortness of 04/07/24 Unknown History breath hydrocodone-acetaminophen 5-325mg 1 tab PO TID PRN Pain 04/07/24 Unknown History 5mg-325mg bbiacuav-dws-pmfcn acid 0.4 1 tab PO DAILY 04/07/24 Unknown History mg-lycopene 300 mcg-lutein 250 mcg tablet (Centrum Silver) carvedilol 12.5 mg tablet 12.5 mg PO BID htn #180 tabs 04/11/24 Unknown Rx Allergy/AdvReac Type Severity Reaction Status Date / Time Iodinated Contrast Media Allergy Rash Verified 06/01/24 10:00 (Iodinated Contrast- Oral and IV Dye) iodine Allergy Rash Verified 06/01/24 10:00 Penicillins (PCN) Allergy Rash Verified 06/01/24 10:00 ciprofloxacin (From Cipro) AdvReac Intermediate dizziness Verified 06/01/24 10:00 clindamycin AdvReac Intermediate nausea Verified 06/01/24 10:00 levofloxacin (From Levaquin) AdvReac Intermediate abdominal Verified 06/01/24 10:00 pain, nausea simvastatin AdvReac Intermediate Myalgias Verified 06/01/24 10:00 Family History Father , Age 82 CAD (coronary artery disease) Myocardial infarction CVA (cerebral vascular accident) Hypertension Mother , Age 94 Hypertension CVA (cerebral vascular accident) Sister Cancer Brother , Age 13 months from congenital heart defect Congenital heart defect Surgical History History of left heart catheterization (09/09/03) History of cardioversion (07/12/05) H/O colectomy History of bunionectomy History of appendectomy History of hysterectomy (1990) History of knee replacement (05/2018) History of tilt table evaluation (06/02/04) Hx of atrioventricular node ablation History of radiofrequency ablation procedure for cardiac arrhythmia Cardiac pacemaker in situ Social History household members: spouse Smoking Status: Never smoker alcohol intake: never substance use type: does not use caffeine: No EXAM Physical Exam Const Vital Signs: 06/01/24 09:58 Temperature 97.9 F Temperature Source Temporal Pulse Rate 61 Respiratory Rate 18 Blood Pressure 186/90 H Blood Pressure Mean 122 Pulse Ox 99 Oxygen Delivery Method Room Air [facility] Narrative Medical decision making narrative: HISTORY OF PRESENT ILLNESS: 83-year-old female with past medical history significant for CAD, CHF, A-fib on Coumadin. She also has a pacemaker.presents with concern for nausea vomiting after beginning antibiotics. She states she has been on multiple rounds of antibiotics for the last 6 weeks. States she has been following up with a nurse practitioner in the wound care center. She notes they have been culturing her wound and has been growing various microbes. She states she initially started antibiotics on 04/21. Patient was initially started on linezolid and metronidazole based on a culture from 04/16 that grew staph epididymitis. There is no other culture report from 05/06/2024 which grew pansensitive Pseudomonas however on the Gram stain there were no culture seen. She was then prescribed ciprofloxacin for 10 days. A third culture was obtained on 05/20/2024 which also showed no organisms on Gram stain but grew Staph hominis hominis and stenotrophomonas species that were sensitive to antibiotics such as Bactrim, clindamycin. On 05/26 she was started on Bactrim for 10 days. A fourth culture was drawn a week later 05/27/2024 she can showed no organisms on Gram stain which showed pansensitive Pseudomonas once again. She was then prescribed ciprofloxacin for second time on 05/30/2024 REVIEW OF SYSTEMS: Pertinent positives: Nausea vomiting, wounds to bilateral knees, yellow drainage noted Pertinent negatives: Fever, chills, muscle aches PHYSICAL EXAM: Nursing triage notes reviewed, Vital signs reviewed Constitutional: please see mdm HENT: MMM Eyes: Pupils equal round and reactive to light, Extraocular muscles intact Neck: No stridor, no JVD, full neck ROM Lungs: Clear to auscultation, No wheezing or rales. No increased work of breathing, no conversational dyspnea, no accessory muscle use, no nasal flaring. No respiratory distress noted Heart: Regular rate and rhythm, No murmurs, No rubs and No gallops, 2+ distal pulses (radial, femoral, posterior tibial) in all extremities Abdomen: Soft, there is no tenderness, rigidity, rebound or guarding, no obvious peritoneal signs, no palpable pulsatile abdominal masses, no auscultated abdominal bruit : No CVAT Extremities: No edema Neuro: No focal neurological deficits, cranial nerves II through XII intact, 5/5 strength in all extremities. Intact sensation to light touch in all extremities, 2+ reflexes bilateral patella tendons. Normal gait. No ataxia. Skin: Chronic appearing wounds noted to bilateral knees, there is a slight pink discoloration around the wound however there is no donya erythema, no warmth, not fluctuant or indurated, there is no crepitus or bullae. They appear as chronic wounds. Did not appear acutely infected to me. MEDICAL DECISION MAKING: Chief Complaint: Nausea vomiting External records reviewed: Reviewed prior ED records: Factors affecting care: CAD, CHF, A-fib on Coumadin. She also has a pacemaker. Social determinants of health: none History obtained from others: none Consults: none [facility] Narrative: The patient was initially hypertensive with a blood pressure 186/90 otherwise afebrile and nontoxic-appearing. Abdominal exam was benign. Bilateral knees showed likely chronic appearing wounds. There was some slight yellow drainage from the right knee wound. There is no obvious fluctuance induration crepitus or bullae. Pain was out of proportion to exam. I considered the following differential diagnosis: Dehydration, electrolyte disturbance, small bowel obstruction, gastritis, sepsis, severe systemic inflammation ALL IMAGES (IF OBTAINED) HAVE BEEN PERSONALLY REVIEWED AND INTERPRETED BY MYSELF. CBC with no leukocytosis, baseline anemia, no thrombocytopenia BMP with hyponatremia, consistent with prior sodium levels, there is no anion gap suggest endorgan hypoperfusion, no elevation in, outside to suggest metabolic acidosis, no acute kidney injury Lactate is wnl indicating no end-organ hypoperfusion and/or hypoxia. CRP negative ESR negative The synthesis of the patient's history, physical exam, labs, and images suggest no acute life or limb threatening infection, sepsis, disseminated infection, severe systemic inflammation etc. Patient's clinical exam and labs are consistent with likely chronic wounds. I suspect her wound cultures are false positives that are growing either skin marcela or organisms are not causing an active infection. She has been on multiple rounds of antibiotics. I suspect antibiotics are now causing nausea and vomiting which are exacerbating her underlying issues with hyponatremia (replaced with IV fluids). I think the patient be better off if she were not on antibiotics at this time continue with wound care and follow with her primary care physician. [facility] has appoint with her primary care physician Dr. Casillas in 2 days. Shared decision making discussion was undertaken with the patient and . The patient has been more alert and orient x 3 and had capacity to make her own medical decisions. They understood the risk and benefits of hospitalization with IV antibiotics versus discharge without antibiotics. They would express the risk and benefits. They have expressed understanding. They chose to be discharged home with the plan to monitor the patient's wounds and to return if symptoms change or worsen also to follow with her primary care physician for further outpatient evaluation. I gave a prescription for p.o. Zofran to take as needed. Strict return precautions were discussed. Communication was written and verbal The patient and/or family, caregivers express understanding. The patient and/or family, caregivers agrees with the plan. Shared decision making: I will have a discussion with the patient and or visitors regarding risk/benefits of further testing or admission. They will be made aware of of the risk/benefits inherent in this decision they will be given the opportunity to voice understanding. Total critical care time today provided was at least 0 minutes. This excludes separately billable procedures. Critical care time (if documented) is secondary to the patient having high probability of clinically significant/life threatening deterioration in the patient's condition which required my urgent intervention. Impression: 1. Chronic wounds of bilateral knees 2. Medication side effect 3. Antibiotic induced nausea and vomiting Dispo: Discharge home This note was generated with [employer] dictation software. It may contain incorrect words, spelling, and punctuation that were not noted in review of the chart prior to signing. Lab Data Labs: Laboratory Results - last 24 hr 06/01/24 10:50 WBC 5.7 RBC 3.73 L Hgb 10.3 L Hct 31.5 L MCV 84.5 MCH 27.6 MCHC 32.7 RDW Std Deviation 47.9 H RDW Coeff of Donn 15.9 H Plt Count 227 MPV 9.1 Immature Gran % (Auto) 0.200 Neut % (Auto) 59.5 Lymph % (Auto) 31.2 [place] % (Auto) 7.6 Eos % (Auto) 1.1 Baso % (Auto) 0.4 Absolute Neuts (auto) 3.4 Absolute Lymphs (auto) 1.77 Nucleated RBC % 0 ESR 15 Sodium 124 L Potassium 4.1 Chloride 93 L Carbon Dioxide 23.0 Anion Gap 8 BUN 17 Creatinine 1.04 H Estim Creat Clear Calc 35.30 Est GFR (MDRD) Af Amer 65 Est GFR (MDRD) Non-Af 54 L BUN/Creatinine Ratio 16.3 Glucose 124 H Lactic Acid 0.8 Calcium 9.1 C-React Prot Ext Range < 2.90 Discharge Plan Triage Chief Complaint: Nausea/Vomiting ED Provider: Behzad Robins Dx/Rx/DC Orders Prescriptions: No Action docusate sodium [Stool Softener] 100 mg capsule 100 mg PO BID calcitriol 0.25 mcg capsule 0.25 mcg PO DAILY Rx Instructions: Take 1 capsule BID on MW, 1 capsule daily all other days albuterol sulfate 90 mcg/actuation HFA aerosol inhaler 2 puff inhalation Q6H PRN (Reason: shortness of breath or wheezing) Patient Comments: inhale 2 puffs by mouth and INTO THE LUNGS every 6 hours if needed for wheezing [employer] Pro[employer]otics 5 billion cell tablet,chewable 1 tab PO DAILY PRN (Reason: probiotic) polyethylene glycol 3350 [Miralax] 17 gram/dose powder 17 g PO DAILY PRN (Reason: constipation) ibandronate 150 mg tablet 150 mg PO QMONTH ergocalciferol (vitamin D2) 1,250 mcg (50,000 unit) capsule 1,250 mcg PO QWEEK Centrum Silver 0.4 mg-300 mcg- 250 mcg tablet 1 tab PO DAILY cephalexin 500 mg capsule 500 mg PO BID Rx Instructions: for 10 days furosemide 40 mg tablet 40 mg PO BID warfarin 1 mg tablet 1 mg PO .COMPLEX Rx Instructions: coumadin 9 mg on Sunday, 6 mg rest. Managed by PCP Movantik 25 mg tablet 25 mg PO QAM PRN Rx Instructions: must be taken on empty stomach; no food 1 hr after or 2-3 hrs before dose hydrocodone-acetaminophen 5-325 mg tablet 1 tab PO TID PRN (Reason: Pain) ondansetron 4 mg tablet,disintegrating 4 mg PO Q6H PRN PRN (Reason: Nausea) Qty: 10 0RF potassium chloride 20 mEq tablet extended release 20 meq PO DAILY Qty: 90 3RF losartan 100 mg tablet 100 mg PO DAILY Qty: 90 3RF carvedilol 12.5 mg tablet 12.5 mg PO BID Qty: 180 3RF Rx Instructions: must administer with a meal/food Primary Care Provider: Rashad Peñaloza Referrals: Rashad Peñaloza MD [Primary Care Provider] - Print Language: [place]orese
[2024-06-01] MEDS: Ondansetron 4 MG/2 ML Vial IV (10:55)
[2024-06-01] MEDS: 0.9% Normal Saline (1000mL) 1,000 ML 999 ML IV (10:55)
[2024-06-01 11:00] LABS: Absolute Lymphocyte Count 1.77 X10^3/uL (0.83-4.51); Absolute Neutrophil Count 3.4 X10^3/uL (2.0-7.7); Basophil# 0.02 X10^3/uL; Basophil% 0.4 % (0-1); Eosinophil# 0.06 X10^3/uL; Eosinophils% 1.1 % (0-5); Hematocrit 31.5 % (37-47); Hemoglobin 10.3 g/dL (12.0-15.0); Lymphocyte # 1.77 X10^3/ul (0.83-4.51); Lymphocyte % 31.2 % (19-41); Mean Corp Hgb Conc 32.7 g/dL (32-36); Mean Corpuscular Hgb 27.6 pg (27.0-32.0); Mean Corpuscular Volume 84.5 fL (81-99); Mean Platelet Vol. 9.1 fl (6.2-12.0); Monocyte# 0.43 X10^3/uL; Monocyte% 7.6 % (0-10); NRBC Flagged by Analyzer 0 % (0-5); Neutrophil # 3.39 X10^3/uL (2.7-7.7); Neutrophil % 59.5 % (47-70); Platelet Count 227 K/mm3 (150-450); RBC Distribution Width CV 15.9 % (11.6-14.6); RBC Distribution Width SD 47.9 fl (35.1-43.9); Red Blood Count 3.73 M/mm3 (4.2-5.4); White Blood Count 5.7 K/mm3 (4.4-11.0)
[2024-06-01 11:22] LABS: Erythrocyte Sedimentation Rate 15 mm/hr (0-30)
[2024-06-01 11:35] LABS: Anion Gap 8 (5-15); BUN 17 mg/dL (7-18); BUN/Creat Ratio 16.3 RATIO (10-20); CRP < 2.90 mg/L (0.0-3.0); Calcium,Total 9.1 mg/dL (8.5-10.1); Chloride 93 mmol/L (98-107); Creatinine, Serum 1.04 mg/dL (0.55-1.02); EST Glomerular Filtration Rate 54 mL/min (>60); Est Glom Filt Rate - Afr Amer 65 mL/min (>60); Glucose 124 mg/dL (74-106); Lactic Acid 0.8 mmol/L (0.4-1.9); Potassium 4.1 mmol/L (3.5-5.1); Sodium Level 124 mmol/L (136-145)
[2024-06-01 12:51] VITALS: BP 182/78; PULSE 77; RESP 18; TEMP 36.6; O2SAT 98
== END 2024-06-01 12:56 | disposition home or self-care (01) ==
PROVIDERS: Emergency Provider Emergency Medicine; PCP Family Medicine; Visit Provider Emergency Medicine
DX: R11.2 Nausea with vomiting, unspecified (principal); I11.0 Hypertensive heart disease with heart failure; I50.32 Chronic diastolic (congestive) heart failure; I48.11 Longstanding persistent atrial fibrillation; T36.95XA Adverse effect of unspecified systemic antibiotic, initial encounter; S81.001A Unspecified open wound, right knee, initial encounter; S81.002A Unspecified open wound, left knee, initial encounter; I25.10 Atherosclerotic heart disease of native coronary artery without angina pectoris; E78.5 Hyperlipidemia, unspecified; E87.1 Hypo-osmolality and hyponatremia; Z95.0 Presence of cardiac pacemaker
CPT/HCPCS: 80048; 83605; 85025; 85652; 86140; 96374; 99284; J7030; A4216; J2405

== ENCOUNTER → 2024-06-16 | Outpatient (CLI) | payer MEDICARE, SELFPAY ==
[2024-06-16 16:48] LABS: Hematocrit 34.7 % (37-47); Hemoglobin 10.9 g/dL (12.0-15.0); Mean Corp Hgb Conc 31.4 g/dL (32-36); Mean Corpuscular Hgb 27.4 pg (27.0-32.0); Mean Corpuscular Volume 87.2 fL (81-99); Mean Platelet Vol. 8.6 fl (6.2-12.0); Platelet Count 302 K/mm3 (150-450); RBC Distribution Width CV 16.9 % (11.6-14.6); RBC Distribution Width SD 53.9 fl (35.1-43.9); Red Blood Count 3.98 M/mm3 (4.2-5.4); White Blood Count 7.4 K/mm3 (4.4-11.0)
--- NOTE | 2024-06-16 16:50 | RAD_ITS ---
EXAM: XR CHEST, 2 VIEWS CLINICAL INDICATION: Orthopnea: hx pericardial effusion, diastolic CHF TECHNIQUE: Frontal and lateral views of the chest. COMPARISON: CTA chest on the same date and chest radiograph, 12/17/2023 FINDINGS: LUNGS AND PLEURAL SPACES: No significant abnormality. No consolidation or edema. No pneumothorax. No effusion. HEART: Enlarged cardiac silhouette consistent with cardiomegaly demonstrated on comparison CT. MEDIASTINUM: Central airways and mediastinal contour are unremarkable. BONES/JOINTS: Degenerative changes throughout the spine and shoulders. No acute fracture. SOFT TISSUES: No significant abnormality. TUBES, LINES AND DEVICES: Left-sided cardiac device. RAD/Chest PA and Lateral IMPRESSION: Enlarged cardiac silhouette consistent with cardiomegaly demonstrated on comparison CT. No additional acute findings. Electronically Signed: Eder Guallpa DO at 23:48 EDT ,
[2024-06-16 17:09] LABS: D-Dimer Quantitative (DVT/PE) 1.01 FEU/ug/m (0.27-0.49)
[2024-06-16 17:29] LABS: BNP,B-Type NATRIURETIC PEPTIDE 279.6 pg/mL (0-100)
[2024-06-16 17:31] LABS: Anion Gap 4 (5-15); BUN 22 mg/dL (7-18); BUN/Creat Ratio 23.9 RATIO (10-20); Calcium,Total 8.8 mg/dL (8.5-10.1); Chloride 92 mmol/L (98-107); Creatinine, Serum 0.92 mg/dL (0.55-1.02); EST Glomerular Filtration Rate 62 mL/min (>60); Est Glom Filt Rate - Afr Amer 75 mL/min (>60); Glucose 98 mg/dL (74-106); Potassium 4.1 mmol/L (3.5-5.1); Sodium Level 127 mmol/L (136-145)
== END | disposition home or self-care (01) ==
PROVIDERS: PCP Family Medicine; Referring Provider Nurse Practitioner Family; Visit Provider Nurse Practitioner Family
DX: R06.01 Orthopnea (principal); I50.32 Chronic diastolic (congestive) heart failure; R06.02 Shortness of breath; Z86.2 Personal history of diseases of the blood and blood-forming organs and certain disorders involving the immune mechanism
CPT/HCPCS: 36415; 71046; 80048; 83880; 85027; 85379

== ENCOUNTER 2024-06-17 11:37 | Emergency (ER) | payer MEDICARE, SELFPAY ==
[2024-06-17 11:38] VITALS: BP 175/88; PULSE 66; RESP 16; TEMP 36.6; O2SAT 96; BMI 31.4
[2024-06-17 11:47] VITALS: BP 178/97; PULSE 75; RESP 18; O2SAT 99
--- NOTE | 2024-06-17 12:31 | EKG12_ITS ---
Test Reason : SOB Blood Pressure : / mmHG Vent. Rate : 066 BPM Atrial Rate : 312 BPM P-R Int : 000 ms QRS Dur : 126 ms QT Int : 418 ms P-R-T Axes : 000 -72 096 degrees QTc Int : 438 ms Ventricular-paced rhythm Abnormal ECG Confirmed by ARABELLA MOHR, KENNY ([id number]), mapping editor JOHN MYRICK ([id number]) on 06/20/2024 6:38:03 AM Referred By: WARD Confirmed By:ZAK BELL MD
--- NOTE | 2024-06-17 12:32 | ED.VIS.DYS ---
HPI History of Present Illness Chief Complaint: Shortness of Breath Informant: patient and spouse/S.O. Onset/Context/Timing Onset: Days Context: gradual Timing: Continuous Quality: Positive for Orthopnea Current Severity: Gone Maximum Severity: Mild Worsened by: Lying flat Relieved by: other ( resolved in upright position. ) Associated Symptoms Chest Pain: Positive for None Narrative Narrative: 83-year-old female history of CHF, CAD, A-fib on Coumadin. Takes Lasix 40 mg twice a day. Last 4 days or so she has had shortness of breath only supine. Not with exertion or sitting upright. No cough or fever. No chest pain. Mild increase swelling around her ankles. Had outpatient labs done yesterday was told to come to the emergency department. 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 Open wound of knee Non-pressure 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 layer exposed Open wound of knee Wound, open, elbow Traumatic open wound of left lower leg Osteoarthritis of both knees Chronic anemia GERD (gastroesophageal reflux disease) Atrial fibrillation Pneumonia Hyponatremia CAD (coronary artery disease) 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 Hyperlipidemia Tear of biceps muscle Osteoarthrosis Diverticulitis Essential hypertension Nonrheumatic mitral valve regurgitation Pulmonary hypertension Diastolic congestive heart failure Longstanding persistent atrial fibrillation AV block, complete Home Medications ?Medication ?Instructions ?Recorded ?Last Taken ?Type docusate sodium 100 mg capsule 100 mg PO BID PRN constipation 06/03/21 12/16/23 History (Stool Softener) albuterol sulfate 90 mcg/actuation 2 puff inhalation Q6H PRN 03/22/22 Unknown History aerosol inhaler shortness of breath or wheezing Lactobacillus rhamnosus GG 5 1 tab PO DAILY PRN probiotic 02/20/23 Unknown History billion cell chewable tablet (Culturelle Kids Probiotics) ondansetron 4 mg disintegrating 4 mg PO Q6H PRN PRN Nausea #10 tabs 08/17/23 12/16/23 Rx tablet ibandronate 150 mg tablet 150 mg PO QMONTH 01/07/24 Unknown History potassium chloride 20 mEq 20 meq PO DAILY #90 tabs 02/06/24 Unknown Rx tablet,extended release polyethylene glycol 3350 17 17 g PO DAILY PRN constipation 02/07/24 Unknown History gram/dose oral powder (Miralax) warfarin 1 mg tablet 1 mg PO .COMPLEX anticoagulation 02/07/24 Unknown History naloxegol 25 mg tablet (Movantik) 25 mg PO QAM PRN stomach upset 02/18/24 Unknown History losartan 100 mg tablet 100 mg PO DAILY #90 tabs 03/04/24 Unknown Rx calcitriol 0.25 mcg capsule 0.25 mcg PO DAILY see mar 04/07/24 Unknown History ergocalciferol (vitamin D2) 1,250 1,250 mcg PO QWEEK 04/07/24 Unknown History mcg (50,000 unit) capsule furosemide 40 mg tablet 40 mg PO BID edema, shortness of 04/07/24 Unknown History breath hydrocodone-acetaminophen 5-325mg 1 tab PO TID PRN Pain 04/07/24 Unknown History 5mg-325mg wskgmubq-svw-iiozo acid 0.4 1 tab PO DAILY 04/07/24 Unknown History mg-lycopene 300 mcg-lutein 250 mcg tablet (Centrum Silver) carvedilol 12.5 mg tablet 12.5 mg PO BID htn #180 tabs 04/11/24 Unknown Rx Allergy/AdvReac Type Severity Reaction Status Date / Time Iodinated Contrast Media Allergy Rash Verified 06/17/24 11:40 (Iodinated Contrast- Oral and IV Dye) iodine Allergy Rash Verified 06/17/24 11:40 Penicillins (PCN) Allergy Rash Verified 06/17/24 11:40 ciprofloxacin (From Cipro) AdvReac Intermediate dizziness Verified 06/17/24 11:40 clindamycin AdvReac Intermediate nausea Verified 06/17/24 11:40 levofloxacin (From Levaquin) AdvReac Intermediate abdominal Verified 06/17/24 11:40 pain, nausea simvastatin AdvReac Intermediate Myalgias Verified 06/17/24 11:40 Family History Father , Age 82 CAD (coronary artery disease) Myocardial infarction CVA (cerebral vascular accident) Hypertension Mother , Age 94 Hypertension CVA (cerebral vascular accident) Sister Cancer Brother , Age 13 months from congenital heart defect Congenital heart defect Surgical History History of left heart catheterization (09/09/03) History of cardioversion (07/12/05) H/O colectomy History of bunionectomy History of appendectomy History of hysterectomy (1990) History of knee replacement (05/2018) History of tilt table evaluation (06/02/04) Hx of atrioventricular node ablation History of radiofrequency ablation procedure for cardiac arrhythmia Cardiac pacemaker in situ Social History household members: spouse Smoking Status: Never smoker alcohol intake: never substance use type: does not use caffeine: No ROS ROS ED ROS Narrative Positional shortness of breath supine. Resolved upright. Constitutional Constitutional ED: Denies chills or fever(s) Eyes Eyes: Denies blurry vision ENT ENT ED: Denies ear pain Cardiovascular Cardiovascular: Reports orthopnea; Denies chest pain Respiratory/Chest Respiratory/Chest: Reports dyspnea and orthopnea; Denies cough Gastrointestinal Gastrointestinal: Denies abdominal pain Genitourinary Genitourinary ED: Denies dysuria Musculoskeletal Musculoskeletal: Denies arthralgias Integumentary Denies abscess Neurologic Neurologic: Denies headache(s) Psychiatric Psychiatric: Denies anxiety or depression Endocrine Endocrinology: Denies cold intolerance Hematologic/Lymphatic Hematologic/Lymphatic: Denies easy bleeding Allergic/Immunologic Allergic/Immunologic ED: Denies mouth swelling or tongue swelling EXAM Physical Exam Narrative Exam Narrative: 83-year-old female vital signs stable afebrile. Sitting upright she is 96% on room air no distress. No symptoms. H EENT exam unremarkable. No facial droop. Normal speech. Neck nontender no JVD. Lungs clear to auscultation bilaterally. Heart regular rhythm rate about 70 no murmur. Chest wall and ribs nontender. Abdomen soft nontender. Moving all 4 extremities. Calves are nontender no cords. Trace ankle edema. Neurologically she is awake alert no focal motor deficits. Answering questions following commands. at bedside. Const Vital Signs: 06/17/24 11:38 06/17/24 11:47 06/17/24 11:48 Temperature 98 F Temperature Source Temporal Pulse Rate 66 75 Respiratory Rate 16 18 Respiratory Effort Normal Non-Labored Respiratory Depth Normal Respiratory Pattern Normal Blood Pressure 175/88 H 178/97 H Blood Pressure Mean 117 124 Pulse Ox 96 99 Oxygen Delivery Method Room Air Room Air 06/17/24 13:49 Temperature Temperature Source Pulse Rate 68 Respiratory Rate Respiratory Effort Respiratory Depth Respiratory Pattern Blood Pressure 160/69 H Blood Pressure Mean 99 Pulse Ox Oxygen Delivery Method Positive well nourished and well developed; Negative for obese, cachectic, contractures or unkempt General Appearance ED: well developed and NAD; Negative for unkempt, cachectic, contractures or pallor Nutritional Appearance: Negative for cachectic or obese HEENT Reports moist mucous membranes atraumatic; Negative for trauma or tenderness Eyes PERRL and EOMs intact bilaterally General Eye ED: Negative for pale conjunctiva or scleral icterus Neck no lymphadenopathy, supple, no meningeal signs and no JVD General: Negative for tenderness Lymph Lymphatic: Negative for other Chest Wall Chest: Negative for other Resp normal respiratory effort and clear to auscultation bilaterally Effort and Inspection: Negative for pain with movement Auscultation: Negative for rales, rhonchi, wheezes or diminished lung sounds Cardio regular rate, regular rhythm, S1 normal heart sound, S2 normal heart sound and no murmurs Rate: Negative for bradycardia or tachycardic Rhythm: Negative for abnormal rhythm GI non-distended and no masses Inspection: Negative for other Palpation: soft; Negative for tender, guarding or rebound tenderness present Back/Spine no CVA tenderness and normal to inspection General Back: Negative for CVA tenderness or tenderness Extremity Negative for normal to inspection Extremity Narrative: Trace ankle edema. General Extremety ED: Yes edema; Negative for tenderness General Extremity: edema Neuro oriented x3, No CN's II-XII intact bilaterally and No no sensory deficits noted Sensorium / Orientation: alert, oriented to person, oriented to place and oriented to time; Negative for orientation impaired or confused Speech: speech normal Motor Exam: strength 5/5 throughout Psych mental status grossly normal Appearance: Negative for unkempt Attitude: No agitated Mood & Affect: Negative for depressed, anxious or tearful Thought Process: normal thought process Skin no wounds General Skin Exam: Negative for jaundice or pallor Lesions: no lesions Rashes: no rashes MDM MDM MDM Narrative Medical decision making narrative: 83-year-old female history of CHF has only positional shortness of breath when supine. Upright she is not having shortness of breath. No chest pain. I think this is either CHF or pleural effusion. She has trace ankle edema. Labs will be done. Repeat exam patient is doing well at 2:25 PM. Resting comfortably. She and I went over her test are basically her baseline. She is on Coumadin INR is 2. Clinically I do not think this is a blood clot. Her history really does not sound like that. She does have enlarged cardiac silhouette on her chest x-ray she has had a pericardial effusion before. I am going to obtain a CTA of her chest to evaluate for that and PE but again I do not think this is a blood clot. Repeat exam patient doing well at 4:50 PM. She has been checked out to the oncoming physician. To check her CTA results. 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 This is all been discussed with the patient prior to the CAT scan results. History & Record Review Discussion w/independent historian: Patient Additional record(s) reviewed:: Prior inpatient record, Prior outpatient record, Prior ED visit, Prior labs and No prior records Lab Data Attestation: I reviewed the patient's lab results. Lab results narrative: CBC white count 8. H&H 10.7 and 33. Platelets 279. Patient is on Coumadin her INR is 2.0. Chemistry shows sodium 126 she has a history of chronic hyponatremia. Gap 5. BUN and creatinine 26 0.9. Glucose 103. Troponin 16. BNP 252 Labs consistent with her baseline. Labs: Laboratory Results - last 24 hr 06/17/24 12:00 WBC 8.2 RBC 3.82 L Hgb 10.7 L Hct 33.3 L MCV 87.2 MCH 28.0 MCHC 32.1 RDW Std Deviation 53.8 H RDW Coeff of Donn 17.0 H Plt Count 279 MPV 8.7 Immature Gran % (Auto) 0.200 Neut % (Auto) 64.4 Lymph % (Auto) 24.9 [place] % (Auto) 7.8 Eos % (Auto) 2.0 Baso % (Auto) 0.7 Absolute Neuts (auto) 5.3 Absolute Lymphs (auto) 2.04 Nucleated RBC % 0 PT 22.7 H INR 2.0 Sodium 126 L Potassium 4.4 Chloride 91 L Carbon Dioxide 30.0 Anion Gap 5 BUN 26 H Creatinine 0.97 Estim Creat Clear Calc 42.45 Est GFR (MDRD) Af Amer 70 Est GFR (MDRD) Non-Af 58 L BUN/Creatinine Ratio 26.8 H Glucose 103 Calcium 8.7 Troponin I High Sens 16 B-Natriuretic Peptide 252.9 H Radiography Chest X-Ray - ED: 1 View, Read by ED Physician, Read by Radiologist, Normal, Lungs, Mediastinum, Bony Structures, Chronic Changes and Cardiomegaly Diagnostic Testing: Clinical Impression(s) from Imaging Studies Chest X-Ray 06/17/24 12:40 IMPRESSION: Cardiomegaly. Mild degree of scarring at the lung bases. Electronically Signed: Trevin Montalvo MD at 12:53 EDT , Chest x-ray, portable, single view shows cardiomegaly. No effusion. No failure. No pneumonia. Pneumothorax. Interpreted by myself and radiologist. Discharge Plan Triage Chief Complaint: Shortness of Breath ED Provider: Satya Cruz Dx/Rx/DC Orders Clinical Impression: Acute dyspnea, Orthopnea, History of heart failure, Chronic anticoagulation Prescriptions: No Action docusate sodium [Stool Softener] 100 mg capsule 100 mg PO BID PRN (Reason: constipation) calcitriol 0.25 mcg capsule 0.25 mcg PO DAILY Rx Instructions: Take 1 capsule BID on MWF, 1 capsule daily all other days albuterol sulfate 90 mcg/actuation HFA aerosol inhaler 2 puff inhalation Q6H PRN (Reason: shortness of breath or wheezing) Patient Comments: inhale 2 puffs by mouth and INTO THE LUNGS every 6 hours if needed for wheezing Culturelle Kids Probiotics 5 billion cell tablet,chewable 1 tab PO DAILY PRN (Reason: probiotic) polyethylene glycol 3350 [Miralax] 17 gram/dose powder 17 g PO DAILY PRN (Reason: constipation) ibandronate 150 mg tablet 150 mg PO QMONTH ergocalciferol (vitamin D2) 1,250 mcg (50,000 unit) capsule 1,250 mcg PO QWEEK Centrum Silver 0.4 mg-300 mcg- 250 mcg tablet 1 tab PO DAILY furosemide 40 mg tablet 40 mg PO BID warfarin 1 mg tablet 1 mg PO .COMPLEX Rx Instructions: coumadin 9 mg on Sunday, 6 mg rest. Managed by PCP Movantik 25 mg tablet 25 mg PO QAM PRN (Reason: stomach upset) Rx Instructions: must be taken on empty stomach; no food 1 hr after or 2-3 hrs before dose hydrocodone-acetaminophen 5-325 mg tablet 1 tab PO TID PRN (Reason: Pain) ondansetron 4 mg tablet,disintegrating 4 mg PO Q6H PRN PRN (Reason: Nausea) Qty: 10 0RF potassium chloride 20 mEq tablet extended release 20 meq PO DAILY Qty: 90 3RF losartan 100 mg tablet 100 mg PO DAILY Qty: 90 3RF carvedilol 12.5 mg tablet 12.5 mg PO BID Qty: 180 3RF Rx Instructions: must administer with a meal/food Primary Care Provider: Rashad Peñaloza Referrals: Rashad Peñaloza MD [Primary Care Provider] - Print Language: Spanish
--- NOTE | 2024-06-17 12:40 | RAD_ITS ---
STUDY: X-RAY CHEST REASON FOR EXAM: Female, 83 years old. Chest pain and shortness of breath. Lower extremity swelling. TECHNIQUE: Single AP portable view of the chest. COMPARISON: Comparison is made with prior study on June 16, 2024. FINDINGS: EKG electrodes are seen. Stable mild increased markings at the lung bases just some mild bibasilar scarring. There is no demonstrated pleural abnormality. There is moderate cardiac enlargement. A left-sided dual-chamber pacemaker is seen. Normal mediastinum and luis. Normal visualized pulmonary arteries. There is atherosclerotic tortuosity of the aortic arch and descending thoracic aorta. Normal visualized thoracic spine. There is degenerative osteoarthritis of the bilateral shoulders. There is no demonstrated abnormality of the visualized soft tissue structures of the upper abdomen. RAD/Chest 1 View (Portable) IMPRESSION: Cardiomegaly. Mild degree of scarring at the lung bases. Electronically Signed: Trevin Montalvo MD at 12:53 EDT ,
[2024-06-17 12:46] LABS: Absolute Lymphocyte Count 2.04 X10^3/uL (0.83-4.51); Absolute Neutrophil Count 5.3 X10^3/uL (2.0-7.7); Basophil# 0.06 X10^3/uL; Basophil% 0.7 % (0-1); Eosinophil# 0.16 X10^3/uL; Hematocrit 33.3 % (37-47); Hemoglobin 10.7 g/dL (12.0-15.0); Lymphocyte # 2.04 X10^3/ul (0.83-4.51); Lymphocyte % 24.9 % (19-41); Mean Corp Hgb Conc 32.1 g/dL (32-36); Mean Corpuscular Volume 87.2 fL (81-99); Mean Platelet Vol. 8.7 fl (6.2-12.0); Monocyte# 0.64 X10^3/uL; Monocyte% 7.8 % (0-10); NRBC Flagged by Analyzer 0 % (0-5); Neutrophil # 5.26 X10^3/uL (2.7-7.7); Neutrophil % 64.4 % (47-70); Platelet Count 279 K/mm3 (150-450); RBC Distribution Width SD 53.8 fl (35.1-43.9); Red Blood Count 3.82 M/mm3 (4.2-5.4); White Blood Count 8.2 K/mm3 (4.4-11.0)
[2024-06-17 12:55] LABS: Prothrombin Time (Protime)PT. 22.7 SECONDS (11.7-14.9)
[2024-06-17 13:14] LABS: Anion Gap 5 (5-15); BUN 26 mg/dL (7-18); BUN/Creat Ratio 26.8 RATIO (10-20); Calcium,Total 8.7 mg/dL (8.5-10.1); Chloride 91 mmol/L (98-107); Creatinine, Serum 0.97 mg/dL (0.55-1.02); EST Glomerular Filtration Rate 58 mL/min (>60); Est Glom Filt Rate - Afr Amer 70 mL/min (>60); Estimated Creatinine Clearance 42.45 ml/min; Glucose 103 mg/dL (74-106); Potassium 4.4 mmol/L (3.5-5.1); Sodium Level 126 mmol/L (136-145); Troponin-I HS 16 pg/mL (3.0-54.0)
[2024-06-17 13:41] LABS: BNP,B-Type NATRIURETIC PEPTIDE 252.9 pg/mL (0-100)
[2024-06-17 13:49] VITALS: BP 160/69; PULSE 68
--- NOTE | 2024-06-17 14:24 | CT_ITS ---
STUDY: CTA CHEST REASON FOR EXAM: Female, 83 years old. elevated d-dimer and ?? pericardial effusion RADIATION DOSAGE (If Supplied By Facility): CTDIvol = ( 6.63 ) mGy, DLP = ( 317.17 ) mGycm TECHNIQUE: The examination was performed with the intravenous administration of IV 100mL Isovue-370. Post-processing of the angiographic images was performed, with multiplanar reformation and 3D reconstruction. Individualized dose optimization techniques were used for this CT. The protocol utilizes one or more of the following dose reduction techniques: automated exposure control, adjustment of mA and/or kV according to patient size,and/or use of iterative reconstruction technique. COMPARISON: Chest x-ray June 17, 2024 FINDINGS: Normal enhancement of the main pulmonary artery and right and left pulmonary arteries. Normal enhancement of the bilateral peripheral pulmonary arteries. There is no demonstrated pulmonary embolism. Normal thoracic aorta.. There is no demonstrated aortic dissection. Cardiomegaly and calcific coronary artery disease. Transvenous pacer left chest with leads in the right heart.] Aberrant Origin retroesophageal right subclavian artery. Normal mediastinum. Normal hilar regions. Normal visualized trachea and bronchi. The lungs are well expanded. Normal pulmonary parenchyma. Normal pleura. Pectus excavatum. Kyphosis. Normal osseous structures. Normal visualized upper abdomen. CT/CTA Chest W/WO Contrast IMPRESSION: No acute disease. Pectus excavatum. Cardiomegaly and calcific coronary artery disease. Pacer. Aberrant origin right subclavian artery. Electronically Signed: Good Resendiz MD at 18:04 EDT ,
[2024-06-17] MEDS: MethylPREDNISolone 125 MG/2 ML Vial IV (14:48)
[2024-06-17] MEDS: DiphenhydrAMINE 50 MG/ML Syringe 25 MG IV (14:48)
[2024-06-17 17:00] VITALS: BP 155/78; PULSE 71; RESP 16; O2SAT 96
[2024-06-17 18:52] VITALS: BP 159/76; PULSE 60; RESP 17; TEMP 36.3; O2SAT 95
== END 2024-06-17 18:52 | disposition home or self-care (01) ==
PROVIDERS: Emergency Provider Emergency Medicine; PCP Family Medicine; Visit Provider Emergency Medicine
DX: R06.02 Shortness of breath (principal); I11.0 Hypertensive heart disease with heart failure; I50.32 Chronic diastolic (congestive) heart failure; I48.11 Longstanding persistent atrial fibrillation; E78.5 Hyperlipidemia, unspecified; R06.01 Orthopnea; I25.10 Atherosclerotic heart disease of native coronary artery without angina pectoris; Z79.01 Long term (current) use of anticoagulants; K21.9 Gastro-esophageal reflux disease without esophagitis
CPT/HCPCS: 71045; 71275; 80048; 83880; 84484; 85025; 85610; 93005; 96374; 96375; 99285; Q9967; A4216

== ENCOUNTER 2024-06-24 14:45 | Outpatient (RCR) | payer MEDICARE, SELFPAY ==
[2024-05-29 00:40] VITALS: BP 171/89; PULSE 70; RESP 18; TEMP 36.2; BMI 24.8
[2024-06-03 14:55] VITALS: BP 186/111; PULSE 111; RESP 18; TEMP 36.3; BMI 24.8
--- NOTE | 2024-06-04 08:54 | WC ---
PHOTO 06/03/24 RIGHT KNEE
--- NOTE | 2024-06-04 08:55 | WC ---
PHOTO LEFT KNEE 06/03/24
--- NOTE | 2024-06-04 08:55 | WC ---
PHOTO LEFT LATERAL LEG 06/03/24
--- NOTE | 2024-06-04 09:01 | WC ---
PHOTO LEFT ELBOW 06/03/24
--- NOTE | 2024-06-04 12:19 | HP.PCM_ITS ---
History of Present Illness Date of Service: 06/03/24 Chief Complaint: Traumatic wound of the left lateral calf, left knee, left elbow, and right knee History of Wound: This is an 83-year-old female who had [facility] to a traumatic wound on the left lateral calf. The wound occurred as a result of an impact with an open car door. The wound occurred on April 04, 2024, and the patient was initially seen and evaluated in the emergency department at [facility] in [place], [place]. She was treated with a prescription for cephalexin 500 mg p.o. twice daily for total of 10 days, which was completed. She subsequently presented for evaluation and management at the [facility], where initial treatment included the use of Aquacel topically, and Tubigrips. The patient has multiple pre-existing medical problems, which are listed below. These include atrial fibrillation for which she is on systemic anticoagulation therapy with Coumadin. During the course of the patient's treatment, the patient experienced a fall at home on April 29, 2024, in which she sustained a traumatic wound to her left knee and left elbow. She presented to the Emergency Department at [facility] shortly thereafter, where the left elbow wound was bandaged, and a skin flap of the left knee was secured over the wound using multiple Steri-Strips. It is also noted that a culture of the left lateral calf wound on April 16, 2024, was positive for Staphylococcus epidermidis, Corynebacterium amycolatum, Globacatella sulfidifaciens, and anaerobic cocci. As result, the patient was placed on oral linezolid and Flagyl, which was completed. 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 Open wound of knee Non-pressure 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 layer exposed Open wound of knee Wound, open, elbow Traumatic open wound of left lower leg Osteoarthritis of both knees Chronic anemia GERD (gastroesophageal reflux disease) Atrial fibrillation Pneumonia Hyponatremia CAD (coronary artery disease) Pericardial effusion half-way current use of anticoagulant Hyperlipidemia Tear of biceps muscle Osteoarthrosis Diverticulitis Essential hypertension Nonrheumatic mitral valve regurgitation Pulmonary hypertension Diastolic congestive heart failure Longstanding persistent atrial fibrillation AV block, complete Home Medications ?Medication ?Instructions ?Recorded ?Last Taken ?Type docusate sodium 100 mg capsule 100 mg PO BID constipation 06/03/21 12/16/23 History (Stool Softener) albuterol sulfate 90 mcg/actuation 2 puff inhalation Q6H PRN 03/22/22 Unknown History aerosol inhaler shortness of breath or wheezing Lactobacillus rhamnosus GG 5 1 tab PO DAILY PRN probiotic 02/20/23 Unknown History billion cell chewable tablet (sfilatinollBannermans Probiotics) ondansetron 4 mg disintegrating 4 mg PO Q6H PRN PRN Nausea #10 tabs 08/17/23 12/16/23 Rx tablet ibandronate 150 mg tablet 150 mg PO QMONTH 01/07/24 Unknown History potassium chloride 20 mEq 20 meq PO DAILY #90 tabs 02/06/24 Unknown Rx tablet,extended release polyethylene glycol 3350 17 17 g PO DAILY PRN constipation 02/07/24 Unknown History gram/dose oral powder (Miralax) warfarin 1 mg tablet 1 mg PO .COMPLEX anticoagulation 02/07/24 Unknown History naloxegol 25 mg tablet (Movantik) 25 mg PO QAM PRN 02/18/24 Unknown History losartan 100 mg tablet 100 mg PO DAILY #90 tabs 03/04/24 Unknown Rx calcitriol 0.25 mcg capsule 0.25 mcg PO DAILY see mar 04/07/24 Unknown History cephalexin 500 mg capsule 500 mg PO BID 04/07/24 Unknown History ergocalciferol (vitamin D2) 1,250 1,250 mcg PO QWEEK 04/07/24 Unknown History mcg (50,000 unit) capsule furosemide 40 mg tablet 40 mg PO BID edema, shortness of 04/07/24 Unknown History breath hydrocodone-acetaminophen 5-325mg 1 tab PO TID PRN Pain 04/07/24 Unknown History 5mg-325mg cfosuyag-zrk-duxdo acid 0.4 1 tab PO DAILY 04/07/24 Unknown History mg-lycopene 300 mcg-lutein 250 mcg tablet (Centrum Silver) carvedilol 12.5 mg tablet 12.5 mg PO BID htn #180 tabs 04/11/24 Unknown Rx Allergy/AdvReac Type Severity Reaction Status Date / Time Iodinated Contrast Media Allergy Rash Verified 06/01/24 10:00 (Iodinated Contrast- Oral and IV Dye) iodine Allergy Rash Verified 06/01/24 10:00 Penicillins (PCN) Allergy Rash Verified 06/01/24 10:00 ciprofloxacin (From Cipro) AdvReac Intermediate dizziness Verified 06/01/24 10:00 clindamycin AdvReac Intermediate nausea Verified 06/01/24 10:00 levofloxacin (From Levaquin) AdvReac Intermediate abdominal Verified 06/01/24 10:00 pain, nausea simvastatin AdvReac Intermediate Myalgias Verified 06/01/24 10:00 Family History Father , Age 82 CAD (coronary artery disease) Myocardial infarction CVA (cerebral vascular accident) Hypertension Mother , Age 94 Hypertension CVA (cerebral vascular accident) Sister Cancer Brother , Age 13 months from congenital heart defect Congenital heart defect Surgical History History of left heart catheterization (09/09/03) History of cardioversion (07/12/05) H/O colectomy History of bunionectomy History of appendectomy History of hysterectomy (1990) History of knee replacement (05/2018) History of tilt table evaluation (06/02/04) Hx of atrioventricular node ablation History of radiofrequency ablation procedure for cardiac arrhythmia Cardiac pacemaker in situ Social History household members: spouse Smoking Status: Never smoker alcohol intake: never substance use type: does not use caffeine: No Vital Signs Vital Signs Vital Signs: 06/03/24 14:55 Temperature 97.3 F L Temperature Source Temporal Pulse Rate 111 H Respiratory Rate 18 Blood Pressure 186/111 H Blood Pressure Mean 136 Blood Pressure Source Monitor Blood Pressure Position Semi-Fowlers Blood Pressure Location Left Arm Oxygen Delivery Method Room Air Weight Weight: 136 lb Body Mass Index (BMI) 24.8 Physical Exam Const alert, oriented x3, no apparent distress, average body habitus, no limitations and well nourished Constitutional Narrative: The patient's BMI is 24.9 General Appearance: cooperative, comfortable, well kempt and well developed Orientation / Consciousness: awake, oriented to person, oriented to place and oriented to time Exam Limitations: no limitations HEENT normocephalic and head/scalp atraumatic Head and Scalp: normal to inspection, normocephalic and atraumatic Face and Sinus: normal facial exam Eyes EOMs intact bilaterally General Eye: normal appearance of both eyes Neck full ROM Resp normal respiratory effort, normal air movement, no retractions and no use of accessory muscles Effort and Inspection: able to speak in complete sentences Auscultation: clear to auscultation bilaterally Extremity General Extremity: normal exam except as noted Skin Wounds: wounds noted Wound Narrative: An open wound is noted on the left lateral calf. There is no obvious sign of infection or cellulitis. There is a small amount of bioburden and nonviable tissue. Dimensions are documented elsewhere. This wound has shown significant decrease in size recently. There is also an abrasion on the patient's left elbow. Dimensions are documented elsewhere. There is no sign of infection or cellulitis. There is a small, dry eschar at the site. There is an avulsion injury on the left knee, which had been recently treated in the Emergency Department, at which time a skin flap had been repositioned over the wound with hope that the flap would remain viable. However, the skin flap became necrotic, and the remaining nonviable tissue has been removed. Mild erythema persists in the periwound area on the left knee. A culture had been obtained last week, which was positive for Pseudomonas aeruginosa. Blisters which had previously formed on the anterior portion of the right knee have resulted in an open wound, where significant periwound erythema developed. The patient was treated with antibiotics tailored to the culture results which had been obtained several wee ks ago. Hair: normal Neuro oriented x3, CN's II-XII intact bilaterally, moves all extremities, no focal motor deficits and no sensory deficits noted Sensorium / Orientation: awake, alert, oriented to person, oriented to place and oriented to time Psych Appearance: grossly normal Speech: normal speech Thought Content: normal thought content Judgement: judgement good Debridement Note Debridement Note Wound debrided: Left lateral calf wound Laterality: Left Type of Debridement: Excisional debridement Anesthesia Used: 5% Lidocaine Gel and Cetacaine Depth: Down to and including healthy tissue and in the subcutaneous layer Percentage of wound debrided: 100 Instrument Used: 5mm curette Tissue Removed: Bioburden and nonviable tissue Severity: Fat Layer Exposed Amount of bleeding with debridement: Mild Bleeding Controlled with: Compression and gauze Patient tolerated procedure: Patient tolerated procedure well Post-Debridement Measurements and Additional Note: Post-Debridement Measurements/Treatment - Nurse 1 - General Ulcer Assessment Start: 06/03/24 14:52 Freq: Status: Active Protocol: JAVAN Activity Type Activity Date Activity User E-sign Co-sign Detail Recorded Client Recorded Date Recorded By Document 06/03/24 14:55 LATASHA otero 06/03/24 15:16 06/03/24 14:55 WC - Today's Visit Information Type of service Follow-up Visit (Physician/SERVICE WRITER ADVISOR ) Arrival Mode Ambulatory,Cane Accompanied by Patient Identification Verified (Name & Yes ) Height and Weight Body Mass Index (BMI) 24.8 BMI Classification Normal Vital Signs Temperature (97.8 F-99.1 F) 97.3 F L Temperature Source Temporal Pulse Rate (60-100) 111 H Pulse Location Monitor Respiratory Rate (12-18) 18 Respiratory rate source Observation Oxygen Delivery Method Room Air Blood Pressure (90/60-120/80) 186/111 H Blood Pressure Mean 136 Source Monitor Position Semi-Fowlers Blood Pressure Location Left Arm History Since Last Visit- (Skip if this is Patient's initial visit) Have you changed medications since your No last visit? Any new allergies or adverse reactions No Had a fall/change in ADL's that may No increase risk of falls Signs or symptoms of abuse and/or No neglect since last visit Have you been in the hospital since your Yes last visit? Has dressing in place as prescribed Yes Has compression in place as prescribed Yes Has offloadiing in place as prescribed N/A Experienced any changes in pain level or No management Left Footwear Regular Shoe Right Footwear Regular Shoe Pain Scale: 0-10 Numeric Is Patient Pain Free? Yes - Nurse 1 - General Ulcer Measurement Start: 06/03/24 14:52 Freq: Status: Active Protocol: Activity Type Activity Date Activity User E-sign Co-sign Detail Recorded Client Recorded Date Recorded By Document 06/03/24 14:55 LATASHA otero 06/03/24 15:16 06/03/24 14:55 Wound Center Nurse 1 #4 right knee cluster -Current Size (cm) - Length 2.9 -Current Size (cm) - Width 5 -Current Size (cm) - Depth 0.3 -Total Square Cm 14.5 -Date of Last Picture (Recall this 06/03/24 field) -Epithelialization Small 1-33% -Exudate Amt Small -Exudate Type Serosanguineous -Wound Margin Distinct, Outline Attached -Granulation Amt Large (67-100%) -Granulation Quality [place] -Necrosis Amt Small (1-33%) -Necrotic Tissue Type Adherent Slough -Texture ([place]-wound Skin Appearance) Assessed -Moisture ([place]-wound Skin Appearance) Assessed -Color ([place]-wound Skin Appearance) Assessed, Ecchymosis -Temperature ([place]-wound Skin No Abnormality Appearance) (Pt Warm) -Tenderness on Palpation ([place]-wound No Skin Appearance) -Ulcer Cleansing Soap and Water -Foul Odor after Cleansing No -Anesthetic Used 5% Lidocaine Gel #3- L KNEE SKIN TEAR POST FALL -Current Size (cm) - Length 3.2 -Current Size (cm) - Width 3.1 -Current Size (cm) - Depth 0.2 -Total Square Cm 9.92 -Date of Last Picture (Recall this 06/03/24 field) -Epithelialization Small 1-33% -Exudate Amt Medium -Exudate Type Serosanguineous -Wound Margin Distinct, Outline Attached -Granulation Amt Large (67-100%) -Granulation Quality [place] -Necrosis Amt Small (1-33%) -Necrotic Tissue Type Adherent Slough -Texture ([place]-wound Skin Appearance) Assessed -Moisture ([place]-wound Skin Appearance) Assessed -Color ([place]-wound Skin Appearance) Assessed, Ecchymosis -Temperature ([place]-wound Skin No Abnormality Appearance) (Pt Warm) -Tenderness on Palpation ([place]-wound No Skin Appearance) -Ulcer Cleansing Soap and Water -Foul Odor after Cleansing No -Anesthetic Used 5% Lidocaine Gel #3- LFA SKIN TEAR -Current Size (cm) - Length 0.1 -Current Size (cm) - Width 0.1 -Current Size (cm) - Depth 0 -Total Square Cm 0.01 -Date of Last Picture (Recall this 06/03/24 field) -Exudate Amt None Present -Wound Comment(s) SCABBED, NO DRAINAGE #2 LT LAT LE -Current Size (cm) - Length 2.9 -Current Size (cm) - Width 5 -Current Size (cm) - Depth 0.3 -Total Square Cm 14.5 -Date of Last Picture (Recall this 06/03/24 field) -Exudate Amt Small -Exudate Type Serosanguineous -Wound Margin Distinct, Outline Attached -Granulation Amt Large (67-100%) -Granulation Quality [place] -Necrosis Amt Small (1-33%) -Necrotic Tissue Type Adherent Slough -Texture ([place]-wound Skin Appearance) Assessed -Moisture ([place]-wound Skin Appearance) Assessed -Color ([place]-wound Skin Appearance) Assessed, Ecchymosis -Temperature ([place]-wound Skin No Abnormality Appearance) (Pt Warm) -Tenderness on Palpation ([place]-wound No Skin Appearance) -Ulcer Cleansing Soap and Water -Foul Odor after Cleansing No -Anesthetic Used 5% Lidocaine Gel WC - Nurse 2 - General Ulcer CM Notes Start: 06/03/24 14:52 Freq: Status: Active Protocol: Activity Type Activity Date Activity User E-sign Co-sign Detail Recorded Client Recorded Date Recorded By Document 06/03/24 15:31 DS 1 06/03/24 15:43 DS 06/03/24 15:31 Wound Center Nurse 2 #4 right knee cluster -Time 15:31 -Correct Patient Yes -Correct Side, Site, Position Yes -Correct Procedure Yes -Procedure Performed Yes -Type of Procedure Debridement -Clinical Debridement Subcutaneous -Tissue Removed Subcutaneous -Post Debridement (cm) - Length 5.5 -Post Debridement (cm) - Width 1.5 -Post Debridement (cm) - Depth 0.4 -Total Square (Post) (cm) 8.25 -Area of Debridement (cm) - Length 5.5 -Area of Debridement (cm) - Width 1.5 -Total Square (Area) (cm) 8.25 -Tunneling No -Undermining/Tunneling No -Circular Undermining No -Wound/Ulcer Outcome Not Healed -Bleeding Controlled with Pressure -Treatment Response Procedure Tolerated Well -Debridement - Subq, 1st 20sq cm Yes -Debridement, SubQ, ea addt'l 20sq cm 1 or part thereof #3- L KNEE SKIN TEAR POST FALL -Time 15:33 -Correct Patient Yes -Correct Side, Site, Position Yes -Correct Procedure Yes -Procedure Performed Yes -Type of Procedure Debridement -Clinical Debridement Subcutaneous -Tissue Removed Subcutaneous -Post Debridement (cm) - Length 3.5 -Post Debridement (cm) - Width 3 -Post Debridement (cm) - Depth 0.1 -Total Square (Post) (cm) 10.5 -Area of Debridement (cm) - Length 3.5 -Area of Debridement (cm) - Width 3.0 -Total Square (Area) (cm) 10.50 -Tunneling No -Undermining/Tunneling No -Circular Undermining No -Wound/Ulcer Outcome Not Healed -Bleeding Controlled with Pressure -Treatment Response Procedure Tolerated Well -Debridement - Subq, 1st 20sq cm No #3- LFA SKIN TEAR -Time 15:33 -Wound/Ulcer Outcome Not Healed #2 LT LAT LE -Time 15:31 -Correct Patient Yes -Correct Side, Site, Position Yes -Correct Procedure Yes -Procedure Performed Yes -Type of Procedure Debridement -Clinical Debridement Subcutaneous -Tissue Removed Subcutaneous -Post Debridement (cm) - Length 2.6 -Post Debridement (cm) - Width 0.6 -Post Debridement (cm) - Depth 0.4 -Total Square (Post) (cm) 1.56 -Area of Debridement (cm) - Length 2.6 -Area of Debridement (cm) - Width 0.6 -Total Square (Area) (cm) 1.56 -Tunneling No -Undermining/Tunneling No -Circular Undermining No -Wound/Ulcer Outcome Not Healed -Bleeding Controlled with Pressure -Treatment Response Procedure Tolerated Well -Debridement - Subq, 1st 20sq cm No Pain Scale: 0-10 Numeric Is Patient Pain Free? Yes WC - Nurse 3 - General Ulcer D/C NN Start: 06/03/24 14:52 Freq: Status: Active Protocol: Activity Type Activity Date Activity User E-sign Co-sign Detail Recorded Client Recorded Date Recorded By Document 06/03/24 16:29 TRIP barnhart 06/03/24 16:32 RB 06/03/24 16:29 Wound Care Center Nurse 3 #4 right knee cluster -Other Dressing santyl -Primary Dressing Covered/Secured with Dry Gauze,Dry Gauze & Roll Gauze,Secured with Tape #3- L KNEE SKIN TEAR POST FALL -Ulcer Cleansing Rinsed/ Irrigated with Saline -Other Dressing santyl -Primary Dressing Covered/Secured with Dry Gauze,Dry Gauze & Roll Gauze,Secured with Tape #3- LFA SKIN TEAR -Other Dressing hydrogel -Primary Dressing Covered/Secured with Dry Gauze,Dry Gauze & Roll Gauze,Secured with Tape #2 LT LAT LE -Other Dressing hydrogel -Primary Dressing Covered/Secured with Dry Gauze,Dry Gauze & Roll Gauze,Secured with Tape Right -Other circaid Left -Other circaid Treatment Response Procedure Tolerated Well Pain Scale: 0-10 Numeric Is Patient Pain Free? No right knee -Description Aching -Intensity 3 -Alleviating Factors/Interventions Medication -Effectiveness of Alleviating Factor/ Minimally Intervention effective left knee -Description Aching -Intensity 3 -Alleviating Factors/Interventions Medication -Effectiveness of Alleviating Factor/ Minimally Intervention effective Teaching: Wound Center Compression Wraps & Stockings -Person Taught Patient -Teaching Method Discussion, Demonstration -Response to teaching Verbalize Understanding WC - Visit Discharge Discharge Condition Stable Ambulatory Status Ambulatory Transportation Private Auto Medication Reconcilliation completed & No provided to patient/care provider Clinical Summary of Care Provided Yes Additional Wound Wound debrided: Left knee wound Laterality: Left Type of Debridement: Excisional debridement Anesthesia Used: 5% Lidocaine Gel and Cetacaine Depth: Down to and including healthy tissue and in the subcutaneous layer Percentage of wound debrided: 100 Instrument Used: 5mm curette, Forceps and - (Scissors) Tissue Removed: Bioburden and devitalized tissue Severity: Fat Layer Exposed Amount of bleeding with debridement: Mild Bleeding Controlled with: Compression and gauze Patient tolerated procedure: Patient tolerated procedure well Additional Wound Wound debrided: Right knee Laterality: Right Type of Debridement: Excisional debridement Anesthesia Used: 5% Lidocaine Gel and Cetacaine Depth: Down to and including healthy tissue and in the subcutaneous layer Percentage of wound debrided: 100 Instrument Used: 5mm curette Tissue Removed: Bioburden and nonviable tissue Severity: Fat Layer Exposed Amount of bleeding with debridement: Mild Bleeding Controlled with: Compression and gauze Patient tolerated procedure: Patient tolerated procedure well Charges/Coding Multi Select Codes Integumentary Integumentary CPT Codes: 79173 Pili subq tissue 20 sq cm/< (44837 - Right Leg; 05739 - Left Leg; 54858 X 1) Assessment/Plan Assessment/Plan (1) Non-pressure 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 layer exposed: CODE(S): L97.222 - Non-pressure 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 layer exposed (2) Traumatic open wound of left lower leg: CODE(S): S81.802A - Unspecified open wound, left lower leg, initial encounter QUALIFIERS: Encounter type: subsequent encounter Qualified Code(s): S81.802D - Unspecified open wound, left lower leg, subsequent encounter (3) Wound, open, elbow: CODE(S): S51.009A - Unspecified open wound of unspecified elbow, initial encounter QUALIFIERS: Encounter type: subsequent encounter Laterality: left Qualified Code(s): S51.002D - Unspecified open wound of left elbow, subsequent encounter (4) Open wound of knee: CODE(S): S81.009A - Unspecified open wound, unspecified knee, initial encounter QUALIFIERS: Encounter type: subsequent encounter Laterality: left Qualified Code(s): S81.002D - Unspecified open wound, left knee, subsequent encounter (5) Open wound of knee: CODE(S): S81.009A - Unspecified open wound, unspecified knee, initial encounter QUALIFIERS: Encounter type: subsequent encounter Laterality: right Qualified Code(s): S81.001D - Unspecified open wound, right knee, subsequent encounter (6) Non-pressure chronic ulcer of left 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: CODE(S): L97.922 - Non-pressure chronic ulcer of unspecified part of left 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 (7) Non-pressure chronic ulcer of right 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: CODE(S): L97.912 - Non-pressure chronic ulcer of unspecified part of right 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 (8) Current use of shelter anticoagulation: CODE(S): 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 transplanted heart: [place] heart Associated angina: without angina Qualified Code(s): I25.10 - Atherosclerotic heart disease of [place] coronary artery without angina pectoris (14) Essential hypertension: CODE(S): I10 - Essential (primary) hypertension (15) Cardiac pacemaker in situ: CODE(S): Z95.0 - Presence of cardiac pacemaker (16) AV block, complete: CODE(S): I44.2 - Atrioventricular block, complete (17) History of radiofrequency ablation procedure for cardiac arrhythmia: CODE(S): Z98.890 - Other specified postprocedural states (18) Hx of atrioventricular node ablation: CODE(S): Z98.890 - Other specified postprocedural states (19) Diastolic congestive heart failure: CODE(S): I50.30 - Unspecified diastolic (congestive) heart failure QUALIFIERS: Heart failure chronicity: chronic Qualified Code(s): I50.32 - Chronic diastolic (congestive) heart failure (20) Pulmonary hypertension: CODE(S): I27.20 - Pulmonary hypertension, unspecified (21) Nonrheumatic mitral valve regurgitation: CODE(S): I34.0 - Nonrheumatic mitral (valve) insufficiency (22) Hyperlipidemia: CODE(S): E78.5 - Hyperlipidemia, unspecified QUALIFIERS: Hyperlipidemia type: unspecified Qualified Code(s): E78.5 - Hyperlipidemia, unspecified (23) GERD (gastroesophageal reflux disease): CODE(S): K21.9 - Gastro-esophageal reflux disease without esophagitis (24) Chronic anemia: CODE(S): D64.9 - Anemia, unspecified (25) Osteoarthritis of both knees: CODE(S): M17.0 - Bilateral primary osteoarthritis of knee PLAN: Plan This is an 83-year-old female who has been recently prone to falls. She injured her left lateral calf on April 04, 2024, and has been recently managed in this regard at our facility. Debridement of the patient's left lateral calf wound has been performed today. Because of the continued presence of a small amount of necrotic and nonviable tissue within the wound, we are to continue the use of collagenase Santyl, which will be used topically on a daily basis. The patient has been instructed in the appropriate means of application. A prescription and coupon were previously provided. There also remains a small amount of nonviable tissue associated with the left knee wound, and collagenase Santyl is also to be used topically at this site on a daily basis. Blisters at the site of the right knee have subsequently resulted in an open wound, with some degree of necrotic and nonviable tissue. Therefore, collagenase Santyl is to be used topically at the site as well, also on a daily basis. Because of some developing periwound erythema associated with the right knee wound, suspected to be possible early cellulitis, a swab culture was recently obtained for aerobic and anaerobic bacterial growth. Culture results demonstrated the presence of Stenotrophomonas maltophilia and Staphylococcus homimis hominis. As a result, the patient was placed on Bactrim double strength p.o. twice daily for a total of 10 days, which has been completed. A more recent culture of the left knee revealed the presence of Pseudomonas aeruginosa, for which the patient was placed on Cipro 500 mg p.o. twice daily for a total of 10 days. It should be noted that the patient has complained of side effects from a variety of antibiotics, which have included nausea, dizziness, etc. As result, she has been very disinclined to take the oral antibiotics as prescribed. Several days following the initiation of Cipro, prescribed for the positive culture of the left knee wound, the patient went to the Emergency Department on June 01, 2024, and underwent evaluation. Following her evaluation, the patient was advised that she would be better off if she were not on antibiotics at this time, and she was advised to discontinue taking her antibiotics. As result, we are to request consultation with the Infectious Disease service, Dr. Nestor Gaspar. We will defer to Dr. Gaspar's recommendations in regard to management of the recent positive wound cultures. Tubigrip's have been used to the lower extremities to minimize swelling and edema. The patient relates some difficulty in applying the Tubigrip compression, and indicated her desire to obtain CircAid Velcro compression garments. Effort will be made to assist the patient in obtaining this form of compression for her lower extremities. Debridements have been pe rformed of both knee wounds today. A small eschar persists on the left elbow wound, without any signs of infection. This site was left undisturbed, and it is anticipated that the eschar will slough spontaneously, and that the wound will likely be healed once this occurs. The patient is to follow-up in 2 weeks for reevaluation. Total time: 28 minutes
[2024-06-24 14:40] VITALS: BP 147/103; PULSE 91; RESP 18; TEMP 36.3; BMI 24.8
--- NOTE | 2024-06-24 17:09 | PCM.WC.HP ---
History of Present Illness Date of Service: 06/24/24 Chief Complaint: Traumatic wound of the left lateral calf, left knee, left elbow, and right knee History of Wound: This is an 83-year-old female who had [facility] to a traumatic wound on the left lateral calf. The wound occurred as a result of an impact with an open car door. The wound occurred on April 04, 2024, and the patient was initially seen and evaluated in the Emergency Department at [facility] in [place], [place]. She was treated with a prescription for cephalexin 500 mg p.o. twice daily for total of 10 days, which was completed. She subsequently presented for evaluation and management at the [facility], where initial treatment included the use of Aquacel topically, and Tubigrips. The patient has multiple pre-existing medical problems, which are listed below. These include atrial fibrillation for which she is on systemic anticoagulation therapy with Coumadin. During the course of the patient's treatment, the patient experienced a fall at home on April 29, 2024, in which she sustained a traumatic wound to her left knee and left elbow. She presented to the Emergency Department at [facility] shortly thereafter, where the left elbow wound was bandaged, and a skin flap of the left knee was secured over the wound using multiple Steri-Strips. It is also noted that a culture of the left lateral calf wound on April 16, 2024, was positive for Staphylococcus epidermidis, Corynebacterium amycolatum, Globacatella sulfidifaciens, and anaerobic cocci. As result, the patient was placed on oral linezolid and Flagyl, which was completed. [facility] Medical History (Updated 06/25/24 @ 18:[address] 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 Hyperlipidemia Tear of biceps muscle Osteoarthrosis Diverticulitis Essential hypertension Nonrheumatic mitral valve regurgitation Pulmonary hypertension Diastolic congestive heart failure Longstanding persistent atrial fibrillation AV block, complete Home Medications ?Medication ?Instructions ?Recorded ?Last Taken ?Type docusate sodium 100 mg capsule 100 mg PO BID PRN constipation 06/03/21 12/16/23 History (Stool Softener) albuterol sulfate 90 mcg/actuation 2 puff inhalation Q6H PRN 03/22/22 Unknown History aerosol inhaler shortness of breath or wheezing Lactobacillus rhamnosus GG 5 1 tab PO DAILY PRN probiotic 02/20/23 Unknown History billion cell chewable tablet (studentSN Probiotics) ondansetron 4 mg disintegrating 4 mg PO Q6H PRN PRN Nausea #10 tabs 08/17/23 12/16/23 Rx tablet ibandronate 150 mg tablet 150 mg PO QMONTH 01/07/24 Unknown History potassium chloride 20 mEq 20 meq PO DAILY #90 tabs 02/06/24 Unknown Rx tablet,extended release polyethylene glycol 3350 17 17 g PO DAILY PRN constipation 02/07/24 Unknown History gram/dose oral powder (Miralax) warfarin 1 mg tablet 1 mg PO .COMPLEX anticoagulation 02/07/24 Unknown History naloxegol 25 mg tablet (Movantik) 25 mg PO QAM PRN stomach upset 02/18/24 Unknown History losartan 100 mg tablet 100 mg PO DAILY #90 tabs 03/04/24 Unknown Rx calcitriol 0.25 mcg capsule 0.25 mcg PO DAILY see mar 04/07/24 Unknown History ergocalciferol (vitamin D2) 1,250 1,250 mcg PO QWEEK 04/07/24 Unknown History mcg (50,000 unit) capsule hydrocodone-acetaminophen 5-325mg 1 tab PO TID PRN Pain 04/07/24 Unknown History 5mg-325mg ydgjnpty-gnq-qrdgg acid 0.4 1 tab PO DAILY 04/07/24 Unknown History mg-lycopene 300 mcg-lutein 250 mcg tablet (Centrum Silver) carvedilol 12.5 mg tablet 12.5 mg PO BID htn #180 tabs 04/11/24 Unknown Rx furosemide 40 mg tablet 40 mg PO .COMPLEX edema, shortness 06/20/24 Unknown History of breath Allergy/AdvReac Type Severity Reaction Status Date / Time Iodinated Contrast Media Allergy Rash Verified 06/20/24 15:00 (Iodinated Contrast- Oral and IV Dye) iodine Allergy Rash Verified 06/20/24 15:00 Penicillins (PCN) Allergy Rash Verified 06/20/24 15:00 ciprofloxacin (From Cipro) AdvReac Intermediate dizziness Verified 06/20/24 15:00 clindamycin AdvReac Intermediate nausea Verified 06/20/24 15:00 levofloxacin (From Levaquin) AdvReac Intermediate abdominal Verified 06/20/24 15:00 pain, nausea simvastatin AdvReac Intermediate Myalgias Verified 06/20/24 15:00 Family History Father , Age 82 CAD (coronary artery disease) Myocardial infarction CVA (cerebral vascular accident) Hypertension Mother , Age 94 Hypertension CVA (cerebral vascular accident) Sister Cancer Brother , Age 13 months from congenital heart defect Congenital heart defect Surgical History History of left heart catheterization (09/09/03) History of cardioversion (07/12/05) H/O colectomy History of bunionectomy History of appendectomy History of hysterectomy (1990) History of knee replacement (05/2018) History of tilt table evaluation (06/02/04) Hx of atrioventricular node ablation History of radiofrequency ablation procedure for cardiac arrhythmia Cardiac pacemaker in situ Social History household members: spouse Smoking Status: Never smoker alcohol intake: never substance use type: does not use caffeine: No Vital Signs Vital Signs Vital Signs: 06/24/24 14:40 Temperature 97.4 F L Temperature Source Temporal Pulse Rate 91 Respiratory Rate 18 Blood Pressure 147/103 H Blood Pressure Mean 117 Blood Pressure Source Monitor Blood Pressure Position Semi-Fowlers Blood Pressure Location Left Arm Weight Weight: 136 lb Body Mass Index (BMI) 24.8 Physical Exam Const alert, oriented x3, no apparent distress, average body habitus, no limitations and well nourished Constitutional Narrative: The patient's BMI is 24.9 General Appearance: cooperative, comfortable, well kempt and well developed Orientation / Consciousness: awake, oriented to person, oriented to place and oriented to time Exam Limitations: no limitations HEENT normocephalic and head/scalp atraumatic Head and Scalp: normal to inspection, normocephalic and atraumatic Face and Sinus: normal facial exam Nose: external nose normal External Ear: external ears normal Eyes EOMs intact bilaterally General Eye: normal appearance of both eyes Neck full ROM Resp normal respiratory effort, normal air movement, no retractions and no use of accessory muscles Effort and Inspection: able to speak in complete sentences Extremity General Extremity: normal exam except as noted Skin Wounds: wounds noted Wound Narrative: An open wound is noted on the left lateral calf. There is no obvious sign of infection or cellulitis. There is a small amount of bioburden and nonviable tissue. Dimensions are documented elsewhere. This wound has shown significant decrease in size recently. The abrasion of the patient's left elbow is now completely healed and epithelialized. There is an avulsion injury on the left knee, which had been recently treated in the Emergency Department, at which time a skin flap had been repositioned over the wound with hope that the flap would remain viable. However, the skin flap became necrotic, and the remaining nonviable tissue has been removed. An open wound remains. Dimensions are documented elsewhere. There is no sign of infection or cellulitis. Blisters which had previously formed on the anterior portion of the right knee have resulted in an open wound, which persists, though continues to diminish in size. Dimensions are documented elsewhere. There is no sign of infection or cellulitis. Patient has 2 new wounds. One is located on the right forearm, result of minor trauma approximately 10 days ago. There is no sign of infection or cellulitis. Dimensions are documented elsewhere. A very small superficial ulceration is also noted on the distal aspect of the left lateral calf, with no sign of infection or cellulitis. Dimensions are documented elsewhere. Hair: normal Neuro oriented x3, CN's II-XII intact bilaterally, moves all extremities, no focal motor deficits and no sensory deficits noted Sensorium / Orientation: awake, alert, oriented to person, oriented to place and oriented to time Psych Appearance: grossly normal Speech: normal speech Thought Content: normal thought content Judgement: judgement good Debridement Note Debridement Note Wound debrided: Left lateral calf wounds x 2 Laterality: Left Type of Debridement: Excisional debridement Anesthesia Used: 5% Lidocaine Gel and Cetacaine Depth: Down to and including healthy tissue and in the subcutaneous layer Percentage of wound debrided: 100 Instrument Used: 5mm curette Tissue Removed: Bioburden and nonviable tissue Severity: Fat Layer Exposed Amount of bleeding with debridement: Mild Bleeding Controlled with: Compression and gauze Patient tolerated procedure: Patient tolerated procedure well Post-Debridement Measurements and Additional Note: Post-Debridement Measurements/Treatment - Nurse 1 - General Ulcer Assessment Start: 06/03/24 14:52 Freq: Status: Active Protocol: JAVAN Activity Type Activity Date Activity User E-sign Co-sign Detail Recorded Client Recorded Date Recorded By Document 06/03/24 14:55 KW 06/03/24 15:16 KW Document 06/24/24 14:40 RB [id number] 06/24/24 14:55 RB 06/03/24 06/24/24 14:55 14:40 - Today's Visit Information Type of service Follow-up Visit Follow-up Visit (Physician/CHIROPRACTIC PRACTICE MANAGER (Physician/CHIROPRACTIC PRACTICE MANAGER ) ) Arrival Mode Ambulatory,Cane Ambulatory Transfer Assistance None Accompanied by Patient Identification Verified (Name & Yes Yes ) Patient Requires Transmission-Based No Precautions Height and Weight Body Mass Index (BMI) 24.8 24.8 BMI Classification Normal Normal Vital Signs Temperature (97.8 F-99.1 F) 97.3 F L 97.4 F L Temperature Source Temporal Temporal Pulse Rate (60-100) 111 H 91 Pulse Location Monitor Monitor Respiratory Rate (12-18) 18 18 Respiratory rate source Observation Observation Oxygen Delivery Method Room Air Blood Pressure (90/60-120/80) 186/111 H 147/103 H Blood Pressure Mean 136 117 Source Monitor Monitor Position Semi-Fowlers Semi-Fowlers Blood Pressure Location Left Arm Left Arm History Since Last Visit- (Skip if this is Patient's initial visit) Have you changed medications since your No No last visit? Any new allergies or adverse reactions No No Had a fall/change in ADL's that may No No increase risk of falls Signs or symptoms of abuse and/or No No neglect since last visit Have you been in the hospital since your Yes No last visit? Has dressing in place as prescribed Yes Yes Has compression in place as prescribed Yes No Has offloadiing in place as prescribed N/A No Experienced any changes in pain level or No No management Left Footwear Regular Shoe Right Footwear Regular Shoe Pain Scale: 0-10 Numeric Is Patient Pain Free? Yes Yes - Nurse 1 - General Ulcer Measurement Start: 06/03/24 14:52 Freq: Status: Active Protocol: Activity Type Activity Date Activity User E-sign Co-sign Detail Recorded Client Recorded Date Recorded By Document 06/03/24 14:55 KW kl 06/03/24 15:16 KW Document 06/24/24 14:40 RB [id number] 06/24/24 14:55 RB 06/03/24 06/24/24 14:55 14:40 Wound Center Nurse 1 #3- LFA SKIN TEAR -Combined with other wound No -Current Size (cm) - Length 0.1 0 -Current Size (cm) - Width 0.1 0 -Current Size (cm) - Depth 0 0 -Total Square Cm 0.01 0 -Date of Last Picture (Recall this 06/03/24 field) -Photo Taken Yes -Epithelialization Large 67-100% -Exudate Amt None Present -Wound Comment(s) SCABBED, NO DRAINAGE 5. RFA -Current Size (cm) - Length 0.9 -Current Size (cm) - Width 3 -Current Size (cm) - Depth 0.1 -Total Square Cm 2.7 -Photo Taken Yes -Tunneling No -Undermining/Tunneling No -Circular Undermining No -Exudate Amt Medium -Exudate Type Serosanguineous -Wound Margin Distinct, Outline Attached -Granulation Amt Medium (34-66%) -Granulation Quality [place] -Slough/Fibrin Yes -Necrosis Amt Medium (34-66%) -Necrotic Tissue Type Adherent Slough -Structure Exposed N/A -Texture (Nhung-wound Skin Appearance) Assessed -Moisture (Nhung-wound Skin Appearance) Assessed -Color (Nhung-wound Skin Appearance) Assessed -Temperature (Nhung-wound Skin No Abnormality Appearance) (Pt Warm) -Tenderness on Palpation (Nhung-wound No Skin Appearance) -Ulcer Cleansing Wound Cleanser -Foul Odor after Cleansing No -Anesthetic Used 5% Lidocaine Gel #4 right knee cluster -Combined with other wound No -Current Size (cm) - Length 2.9 2 -Current Size (cm) - Width 5 4 -Current Size (cm) - Depth 0.3 0.1 -Total Square Cm 14.5 8 -Date of Last Picture (Recall this 06/03/24 field) -Photo Taken Yes -Epithelialization Small 1-33% -Tunneling No -Undermining/Tunneling No -Circular Undermining No -Exudate Amt Small Medium -Exudate Type Serosanguineous Serosanguineous -Wound Margin Distinct, Distinct, Outline Outline Attached Attached -Granulation Amt Large (67-100%) Medium (34-66%) -Granulation Quality [place] -Slough/Fibrin Yes -Necrosis Amt Small (1-33%) Medium (34-66%) -Necrotic Tissue Type Adherent Slough Adherent Slough -Structure Exposed N/A -Texture (Nhung-wound Skin Appearance) Assessed Assessed -Moisture (Nhung-wound Skin Appearance) Assessed Assessed -Color (Nhung-wound Skin Appearance) Assessed, Assessed Ecchymosis -Temperature (Nhung-wound Skin No Abnormality No Abnormality Appearance) (Pt Warm) (Pt Warm) -Tenderness on Palpation (Nhung-wound No No Skin Appearance) -Ulcer Cleansing Soap and Water Wound Cleanser -Foul Odor after Cleansing No No -Anesthetic Used 5% Lidocaine 5% Lidocaine Gel Gel #3- L KNEE SKIN TEAR POST FALL -Combined with other wound No -Current Size (cm) - Length 3.2 3 -Current Size (cm) - Width 3.1 2.2 -Current Size (cm) - Depth 0.2 0.1 -Total Square Cm 9.92 6.6 -Date of Last Picture (Recall this 06/03/24 field) -Epithelialization Small 1-33% -Exudate Amt Medium -Exudate Type Serosanguineous -Wound Margin Distinct, Outline Attached -Granulation Amt Large (67-100%) -Granulation Quality [place] -Necrosis Amt Small (1-33%) -Necrotic Tissue Type Adherent Slough -Texture (Nhung-wound Skin Appearance) Assessed -Moisture (Nhung-wound Skin Appearance) Assessed -Color (Nhung-wound Skin Appearance) Assessed, Ecchymosis -Temperature (Nhung-wound Skin No Abnormality Appearance) (Pt Warm) -Tenderness on Palpation (Nhung-wound No Skin Appearance) -Ulcer Cleansing Soap and Water -Foul Odor after Cleansing No -Anesthetic Used 5% Lidocaine Gel #2 LT LAT LE -Combined with other wound No -Current Size (cm) - Length 2.9 2.2 -Current Size (cm) - Width 5 0.5 -Current Size (cm) - Depth 0.3 0.1 -Total Square Cm 14.5 1.10 -Date of Last Picture (Recall this 06/03/24 field) -Photo Taken Yes -Tunneling No -Undermining/Tunneling No -Circular Undermining No -Exudate Amt Small Medium -Exudate Type Serosanguineous Serosanguineous -Wound Margin Distinct, Distinct, Outline Outline Attached Attached -Granulation Amt Large (67-100%) Medium (34-66%) -Granulation Quality [place] -Slough/Fibrin Yes -Necrosis Amt Small (1-33%) Medium (34-66%) -Necrotic Tissue Type Adherent Slough Adherent Slough -Structure Exposed N/A -Texture (Nhung-wound Skin Appearance) Assessed Assessed -Moisture (Nhung-wound Skin Appearance) Assessed Assessed -Color (Nhung-wound Skin Appearance) Assessed, Assessed Ecchymosis -Temperature (Nhung-wound Skin No Abnormality No Abnormality Appearance) (Pt Warm) (Pt Warm) -Tenderness on Palpation (Nhung-wound No No Skin Appearance) -Ulcer Cleansing Soap and Water Wound Cleanser -Foul Odor after Cleansing No No -Anesthetic Used 5% Lidocaine 5% Lidocaine Gel Gel WC - Nurse 2 - General Ulcer CM Notes Start: 06/03/24 14:52 Freq: Status: Active Protocol: Activity Type Activity Date Activity User E-sign Co-sign Detail Recorded Client Recorded Date Recorded By Document 06/03/24 15:31 DS 1 06/03/24 15:43 DS Document 06/24/24 15:03 DS [id number] 06/24/24 15:15 DS 06/03/24 06/24/24 15:31 15:03 Wound Center Nurse 2 #3- LFA SKIN TEAR -Time 15:33 -Wound/Ulcer Outcome Not Healed 5. RFA -Time 15:05 -Correct Patient Yes -Correct Side, Site, Position Yes -Correct Procedure Yes -Procedure Performed Yes -Type of Procedure Debridement -Clinical Debridement Subcutaneous -Tissue Removed Subcutaneous -Post Debridement (cm) - Length 1.3 -Post Debridement (cm) - Width 2.2 -Post Debridement (cm) - Depth 0.1 -Total Square (Post) (cm) 2.86 -Area of Debridement (cm) - Length 1.3 -Area of Debridement (cm) - Width 2.2 -Total Square (Area) (cm) 2.86 -Tunneling No -Undermining/Tunneling No -Circular Undermining No -Wound/Ulcer Outcome Not Healed -Bleeding Controlled with Pressure -Treatment Response Procedure Tolerated Well -Debridement - Subq, 1st 20sq cm Yes #4 right knee cluster -Time 15:31 15:05 -Correct Patient Yes Yes -Correct Side, Site, Position Yes Yes -Correct Procedure Yes Yes -Procedure Performed Yes Yes -Type of Procedure Debridement Debridement -Clinical Debridement Subcutaneous Subcutaneous -Tissue Removed Subcutaneous Subcutaneous -Post Debridement (cm) - Length 5.5 4.5 -Post Debridement (cm) - Width 1.5 1.5 -Post Debridement (cm) - Depth 0.4 0.3 -Total Square (Post) (cm) 8.25 6.75 -Area of Debridement (cm) - Length 5.5 4.5 -Area of Debridement (cm) - Width 1.5 1.5 -Total Square (Area) (cm) 8.25 6.75 -Tunneling No No -Undermining/Tunneling No No -Circular Undermining No No -Wound/Ulcer Outcome Not Healed Not Healed -Bleeding Controlled with Pressure Pressure -Treatment Response Procedure Procedure Tolerated Well Tolerated Well -Debridement - Subq, 1st 20sq cm Yes No -Debridement, SubQ, ea addt'l 20sq cm 1 or part thereof #3- L KNEE SKIN TEAR POST FALL -Time 15:33 15:05 -Correct Patient Yes Yes -Correct Side, Site, Position Yes Yes -Correct Procedure Yes Yes -Procedure Performed Yes Yes -Type of Procedure Debridement Debridement -Clinical Debridement Subcutaneous Subcutaneous -Tissue Removed Subcutaneous Subcutaneous -Post Debridement (cm) - Length 3.5 2.5 -Post Debridement (cm) - Width 3 2.2 -Post Debridement (cm) - Depth 0.1 0.2 -Total Square (Post) (cm) 10.5 5.50 -Area of Debridement (cm) - Length 3.5 2.5 -Area of Debridement (cm) - Width 3.0 2.2 -Total Square (Area) (cm) 10.50 5.50 -Tunneling No No -Undermining/Tunneling No No -Circular Undermining No No -Wound/Ulcer Outcome Not Healed Not Healed -Bleeding Controlled with Pressure Pressure -Treatment Response Procedure Procedure Tolerated Well Tolerated Well -Debridement - Subq, 1st 20sq cm No No #2 LT LAT LE -Time 15:31 15:05 -Correct Patient Yes Yes -Correct Side, Site, Position Yes Yes -Correct Procedure Yes Yes -Procedure Performed Yes Yes -Type of Procedure Debridement Debridement -Clinical Debridement Subcutaneous Subcutaneous -Tissue Removed Subcutaneous Subcutaneous -Post Debridement (cm) - Length 2.6 1.5 -Post Debridement (cm) - Width 0.6 0.5 -Post Debridement (cm) - Depth 0.4 0.1 -Total Square (Post) (cm) 1.56 0.75 -Area of Debridement (cm) - Length 2.6 1.5 -Area of Debridement (cm) - Width 0.6 0.5 -Total Square (Area) (cm) 1.56 0.75 -Tunneling No No -Undermining/Tunneling No No -Circular Undermining No No -Wound/Ulcer Outcome Not Healed Not Healed -Bleeding Controlled with Pressure Pressure -Treatment Response Procedure Procedure Tolerated Well Tolerated Well -Debridement - Subq, 1st 20sq cm No No Pain Scale: 0-10 Numeric Is Patient Pain Free? Yes No right knee -Description Sharp,Throbbing -Intensity 6 -Duration (hours) Chronic -Pain Aggravating Factors Debridement -Alleviating Factors/Interventions Medication left knee -Description Sharp,Throbbing -Intensity 6 -Duration (hours) Chronic -Pain Aggravating Factors Debridement -Alleviating Factors/Interventions Medication -Comments CETACAINE USED WC - Nurse 3 - General Ulcer D/C NN Start: 06/03/24 14:52 Freq: Status: Active Protocol: Activity Type Activity Date Activity User E-sign Co-sign Detail Recorded Client Recorded Date Recorded By Document 06/03/24 16:29 RB [email or web address] 06/03/24 16:32 RB Document 06/24/24 15:22 RB [id number] 06/24/24 15:24 RB 06/03/24 06/24/24 16:29 15:22 Wound Care Center Nurse 3 #3- LFA SKIN TEAR -Other Dressing hydrogel -Primary Dressing Covered/Secured with Dry Gauze,Dry Gauze & Roll Gauze,Secured with Tape 5. RFA -Ulcer Cleansing Rinsed/ Irrigated with Saline -Primary Dressing Applied Promogran Brittany Matter -Primary Dressing Covered/Secured with Dry Gauze,Dry Gauze & Roll Gauze,Secured with Tape -Promogran Brittany Matter 1 #4 right knee cluster -Ulcer Cleansing Rinsed/ Irrigated with Saline -Primary Dressing Applied Promogran Brittany Matter -Other Dressing santyl -Primary Dressing Covered/Secured with Dry Gauze,Dry Dry Gauze,Dry Gauze & Roll Gauze & Roll Gauze,Secured Gauze,Secured with Tape with Tape -Promogran Brittany Matter 1 #3- L KNEE SKIN TEAR POST FALL -Ulcer Cleansing Rinsed/ Rinsed/ Irrigated with Irrigated with Saline Saline -Other Dressing santyl BRITTANY -Primary Dressing Covered/Secured with Dry Gauze,Dry Dry Gauze,Dry Gauze & Roll Gauze & Roll Gauze,Secured Gauze,Secured with Tape with Tape #2 LT LAT LE -Ulcer Cleansing Rinsed/ Irrigated with Saline -Other Dressing hydrogel BRITTANY -Primary Dressing Covered/Secured with Dry Gauze,Dry Dry Gauze,Dry Gauze & Roll Gauze & Roll Gauze,Secured Gauze,Secured with Tape with Tape -Wound Comment(s) LEFT LOWER EXTREMITY HYDROGEL TO SCRATCH Right -Other circaid RAMA Left -Other circaid RAMA Treatment Response Procedure Procedure Tolerated Well Tolerated Well Pain Scale: 0-10 Numeric Is Patient Pain Free? No Yes right knee -Description Aching -Intensity 3 -Alleviating Factors/Interventions Medication -Effectiveness of Alleviating Factor/ Minimally Intervention effective left knee -Description Aching -Intensity 3 -Alleviating Factors/Interventions Medication -Effectiveness of Alleviating Factor/ Minimally Intervention effective Teaching: Wound Center Dressing Your Wound -Person Taught Patient -Teaching Method Discussion, Demonstration -Response to teaching Verbalize Understanding Compression Wraps & Stockings -Person Taught Patient -Teaching Method Discussion, Demonstration -Response to teaching Verbalize Understanding WC - Visit Discharge Discharge Condition Stable Stable Ambulatory Status Ambulatory Ambulatory Transportation Private Auto Private Auto Medication Reconcilliation completed & No No provided to patient/care provider Clinical Summary of Care Provided Yes Yes Notes: ELVI CLARK LPN ASSITED WITH DRESSING CHANGE Additional Wound Wound debrided: Left knee wound Laterality: Left Type of Debridement: Excisional debridement Anesthesia Used: 5% Lidocaine Gel and Cetacaine Depth: Down to and including healthy tissue and in the subcutaneous layer Percentage of wound debrided: 100 Instrument Used: 5mm curette Tissue Removed: Bioburden and devitalized tissue Severity: Fat Layer Exposed Amount of bleeding with debridement: Mild Bleeding Controlled with: Compression and gauze Patient tolerated procedure: Patient tolerated procedure well Additional Wound Wound debrided: Right knee Laterality: Right Type of Debridement: Excisional debridement Anesthesia Used: 5% Lidocaine Gel and Cetacaine Depth: Down to and including healthy tissue and in the subcutaneous layer Percentage of wound debrided: 100 Instrument Used: 5mm curette Tissue Removed: Bioburden and nonviable tissue Severity: Fat Layer Exposed Amount of bleeding with debridement: Mild Bleeding Controlled with: Compression and gauze Patient tolerated procedure: Patient tolerated procedure well Additional Wound Wound debrided: Right forearm Laterality: Right Type of Debridement: Excisional debridement Anesthesia Used: 5% Lidocaine Gel Depth: Down to and including healthy tissue and in the subcutaneous layer Percentage of wound debrided: 100 Instrument Used: 5mm curette Tissue Removed: Bioburden and nonviable tissue Severity: Fat Layer Exposed Amount of bleeding with debridement: Mild Bleeding Controlled with: Compression and gauze Patient tolerated procedure: Patient tolerated procedure well Charges/Coding Multi Select Codes Integumentary Integumentary CPT Codes: 99877 Plii subq tissue 20 sq cm/< (00354 -Left leg; 75501 - Right leg; 30283 - Right arm) Assessment/Plan Assessment/Plan (1) Non-pressure 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 layer exposed: CODE(S): L97.222 - Non-pressure 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 layer exposed (2) Traumatic open wound of left lower leg: CODE(S): S81.802A - Unspecified open wound, left lower leg, initial encounter QUALIFIERS: Encounter type: subsequent encounter Qualified Code(s): S81.802D - Unspecified open wound, left lower leg, subsequent encounter (3) Wound, open, elbow: CODE(S): S51.009A - Unspecified open wound of unspecified elbow, initial encounter QUALIFIERS: Encounter type: subsequent encounter Laterality: left Qualified Code(s): S51.002D - Unspecified open wound of left elbow, subsequent encounter (4) Open wound of knee: CODE(S): S81.009A - Unspecified open wound, unspecified knee, initial encounter QUALIFIERS: Encounter type: subsequent encounter Laterality: left Qualified Code(s): S81.002D - Unspecified open wound, left knee, subsequent encounter (5) Open wound of knee: CODE(S): S81.009A - Unspecified open wound, unspecified knee, initial encounter QUALIFIERS: Encounter type: subsequent encounter Laterality: right Qualified Code(s): S81.001D - Unspecified open wound, right knee, subsequent encounter (6) Non-pressure chronic ulcer of left 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: CODE(S): L97.922 - Non-pressure chronic ulcer of unspecified part of left 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 (7) Non-pressure chronic ulcer of right 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: CODE(S): L97.912 - Non-pressure chronic ulcer of unspecified part of right 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 (8) Open wound of right upper extremity: CODE(S): S41.101A - Unspecified open wound of right upper arm, initial encounter QUALIFIERS: Encounter type: initial encounter Qualified Code(s): S41.101A - Unspecified open wound of right upper arm, initial encounter (9) 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: CODE(S): 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 transplanted heart: [place] heart Associated angina: without angina Qualified Code(s): I25.10 - Atherosclerotic heart disease of [place] coronary artery without angina pectoris (15) Essential hypertension: CODE(S): I10 - Essential (primary) hypertension (16) Cardiac pacemaker in situ: CODE(S): Z95.0 - Presence of cardiac pacemaker (17) AV block, complete: CODE(S): I44.2 - Atrioventricular block, complete (18) History of radiofrequency ablation procedure for cardiac arrhythmia: CODE(S): Z98.890 - Other specified postprocedural states (19) Hx of atrioventricular node ablation: CODE(S): Z98.890 - Other specified postprocedural states (20) Diastolic congestive heart failure: CODE(S): I50.30 - Unspecified diastolic (congestive) heart failure QUALIFIERS: Heart failure chronicity: chronic Qualified Code(s): I50.32 - Chronic diastolic (congestive) heart failure (21) Pulmonary hypertension: CODE(S): I27.20 - Pulmonary hypertension, unspecified (22) Nonrheumatic mitral valve regurgitation: CODE(S): I34.0 - Nonrheumatic mitral (valve) insufficiency (23) Hyperlipidemia: CODE(S): E78.5 - Hyperlipidemia, unspecified QUALIFIERS: Hyperlipidemia type: unspecified Qualified Code(s): E78.5 - Hyperlipidemia, unspecified (24) GERD (gastroesophageal reflux disease): CODE(S): K21.9 - Gastro-esophageal reflux disease without esophagitis (25) Chronic anemia: CODE(S): D64.9 - Anemia, unspecified (26) Osteoarthritis of both knees: CODE(S): M17.0 - Bilateral primary osteoarthritis of knee PLAN: Plan This is an 83-year-old female who has been recently prone to falls. She injured her left lateral calf on April 04, 2024, and has been recently managed in this regard at our facility. The patient has shown reasonably good progress, but has returned to several scheduled visits with additional wounds to her extremities. We are currently treating 2 wounds of the left lateral calf, a wound on each knee, and a wound on the right forearm. The patient's wounds, in general, appear to be progressing well, without signs of infection or cellulitis. They are largely free of necrotic and nonviable tissue, and demonstrate the presence of healthy granulation tissue. We are to implement the use of Brittany on all wounds but the small wound on the distal left lateral calf. On that wound, we are to use collagen hydrogel, which will be applied topically. The Brittany and collagen hydrogel will be applied on a daily basis. The patient and her have been instructed in the appropriate means of application. The patient has been recently evaluated by Dr. Gaspar, Infectious Disease specialist, who felt as though the patient did not want ongoing antibiotic administration at this time. As a result, antibiotics have been discontinued, and the patient appears to be doing well at present. The patient relates some difficulty in applying the Tubigrip compression, and indicated her desire to obtain CircAid Velcro compression garments. Effort will be made to assist the patient in obtaining this form of compression for her lower extremities. The patient is to follow-up in 1 week for reevaluation. Total time: 26 minutes
--- NOTE | 2024-07-02 09:45 | WC ---
PHOTO 06/24/24 LEFT KNEE
--- NOTE | 2024-07-02 09:46 | WC ---
PHOTO 06/24/24 RIGHT KNEE
--- NOTE | 2024-07-02 09:47 | WC ---
PHOTO 06/24/24 RFA
== END 2024-06-28 23:59 | disposition home or self-care (01) ==
LOC: WC 14:45
PROVIDERS: PCP Family Medicine; Referring Provider Nurse Practitioner Family; Visit Provider Surgery
DX: L97.222 Non-pressure 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 layer exposed (principal); L97.812 Non-pressure chronic ulcer of other part of right 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; L97.822 Non-pressure chronic ulcer of other part of left 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; I11.0 Hypertensive heart disease with heart failure; I50.32 Chronic diastolic (congestive) heart failure; I27.20 Pulmonary hypertension, unspecified; I48.11 Longstanding persistent atrial fibrillation; S81.802S Unspecified open wound, left lower leg, sequela; B96.5 Pseudomonas (aeruginosa) (mallei) (pseudomallei) as the cause of diseases classified elsewhere; S50.312S Abrasion of left elbow, sequela; M17.0 Bilateral primary osteoarthritis of knee; M20.41 Other hammer toe(s) (acquired), right foot; S81.002S Unspecified open wound, left knee, sequela; S80.22 Blister (nonthermal) of knee; W22.8XXS Striking against or struck by other objects, sequela; D64.9 Anemia, unspecified; E78.5 Hyperlipidemia, unspecified; I34.0 Nonrheumatic mitral (valve) insufficiency; K21.9 Gastro-esophageal reflux disease without esophagitis; I87.2 Venous insufficiency (chronic) (peripheral); I25.10 Atherosclerotic heart disease of native coronary artery without angina pectoris; Z79.83 Long term (current) use of bisphosphonates; Z79.01 Long term (current) use of anticoagulants; Z79.899 Other long term (current) drug therapy; Z95.0 Presence of cardiac pacemaker
CPT/HCPCS: 11042; 11045

== ENCOUNTER → 2024-07-14 | Outpatient (CLI) | payer MEDICARE, SELFPAY ==
[2024-07-14 17:24] LABS: Absolute Lymphocyte Count 2.45 X10^3/uL (0.83-4.51); Absolute Neutrophil Count 5.2 X10^3/uL (2.0-7.7); Basophil# 0.04 X10^3/uL; Basophil% 0.5 % (0-1); Eosinophil# 0.16 X10^3/uL; Eosinophils% 1.9 % (0-5); Hematocrit 33.5 % (37-47); Hemoglobin 10.6 g/dL (12.0-15.0); Lymphocyte # 2.45 X10^3/ul (0.83-4.51); Lymphocyte % 28.6 % (19-41); Mean Corp Hgb Conc 31.6 g/dL (32-36); Mean Corpuscular Hgb 27.9 pg (27.0-32.0); Mean Corpuscular Volume 88.2 fL (81-99); Mean Platelet Vol. 8.6 fl (6.2-12.0); Monocyte# 0.68 X10^3/uL; Monocyte% 7.9 % (0-10); NRBC Flagged by Analyzer 0 % (0-5); Neutrophil # 5.22 X10^3/uL (2.7-7.7); Platelet Count 303 K/mm3 (150-450); RBC Distribution Width CV 16.5 % (11.6-14.6); RBC Distribution Width SD 53.9 fl (35.1-43.9); White Blood Count 8.6 K/mm3 (4.4-11.0)
[2024-07-14 17:42] LABS: Anion Gap 8 (5-15); BUN 16 mg/dL (7-18); BUN/Creat Ratio 15.2 RATIO (10-20); Calcium,Total 9.4 mg/dL (8.5-10.1); Chloride 89 mmol/L (98-107); Creatinine, Serum 1.05 mg/dL (0.55-1.02); EST Glomerular Filtration Rate 53 mL/min (>60); Est Glom Filt Rate - Afr Amer 64 mL/min (>60); Glucose 106 mg/dL (74-106); Potassium 3.5 mmol/L (3.5-5.1); Sodium Level 125 mmol/L (136-145)
[2024-07-14 17:45] LABS: BNP,B-Type NATRIURETIC PEPTIDE 398.5 pg/mL (0-100)
== END | disposition home or self-care (01) ==
LOC: LAB 16:24
PROVIDERS: PCP Family Medicine; Referring Provider Nurse Practitioner Family; Visit Provider Nurse Practitioner Family
DX: R06.02 Shortness of breath (principal); R60.0 Localized edema; D64.9 Anemia, unspecified
CPT/HCPCS: 36415; 80048; 83880; 85025

== ENCOUNTER → 2024-07-18 | Outpatient (CLI) | payer MEDICARE, SELFPAY ==
[2024-07-18 15:49] LABS: BNP,B-Type NATRIURETIC PEPTIDE 339.8 pg/mL (0-100)
[2024-07-18 15:52] LABS: AST(SGOT) 23 U/L (15-37); Alanine Aminotransfer ALT/SGPT 21 U/L (13-56); Albumin, Serum 3.6 g/dL (3.2-5.0); Alkaline Phosphatase 107 U/L (45-117); Anion Gap 6 (5-15); BUN 25 mg/dL (7-18); BUN/Creat Ratio 24.3 RATIO (10-20); Calcium,Total 9.6 mg/dL (8.5-10.1); Chloride 91 mmol/L (98-107); Creatinine, Serum 1.03 mg/dL (0.55-1.02); EST Glomerular Filtration Rate 54 mL/min (>60); Est Glom Filt Rate - Afr Amer 66 mL/min (>60); Globulin 3.6 g/dL (2.2-4.2); Glucose 190 mg/dL (74-106); Magnesium 2.2 mg/dL (1.6-2.6); Potassium 3.9 mmol/L (3.5-5.1); Protein, Total 7.2 g/dL (6.4-8.2); Sodium Level 128 mmol/L (136-145)
== END | disposition home or self-care (01) ==
LOC: LAB 14:09
PROVIDERS: PCP Family Medicine; Referring Provider Nurse Practitioner Family; Visit Provider Family Medicine
DX: E87.1 Hypo-osmolality and hyponatremia (principal); I50.9 Heart failure, unspecified; I48.91 Unspecified atrial fibrillation
CPT/HCPCS: 36415; 80053; 83735; 83880

== ENCOUNTER 2024-07-22 14:00 | Outpatient (RCR) | payer MEDICARE, SELFPAY ==
[2024-06-29 00:24] VITALS: BP 171/89; PULSE 70; RESP 18; TEMP 36.2; BMI 24.8
[2024-07-01 14:37] VITALS: RESP 18; BMI 24.8
[2024-07-08 14:27] VITALS: BP 141/58; PULSE 60; TEMP 36; BMI 24.8
[2024-07-15 14:03] VITALS: BP 174/67; PULSE 73; RESP 18; TEMP 36.6; BMI 24.8
[2024-07-22 13:56] VITALS: BP 207/90; PULSE 88; RESP 18; TEMP 36.2; BMI 24.8
== END 2024-07-28 23:59 | disposition home or self-care (01) ==
LOC: WC 14:00
PROVIDERS: PCP Family Medicine; Referring Provider Nurse Practitioner Family; Visit Provider Surgery
DX: L97.222 Non-pressure 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 layer exposed (principal); I11.0 Hypertensive heart disease with heart failure; I50.32 Chronic diastolic (congestive) heart failure; I27.20 Pulmonary hypertension, unspecified; I48.91 Unspecified atrial fibrillation; S81.802S Unspecified open wound, left lower leg, sequela; W22.09XS Striking against other stationary object, sequela; S81.001A Unspecified open wound, right knee, initial encounter; S81.002A Unspecified open wound, left knee, initial encounter; W19.XXXA Unspecified fall, initial encounter; M20.41 Other hammer toe(s) (acquired), right foot; I87.2 Venous insufficiency (chronic) (peripheral); D64.9 Anemia, unspecified; I25.10 Atherosclerotic heart disease of native coronary artery without angina pectoris; M17.0 Bilateral primary osteoarthritis of knee; I34.0 Nonrheumatic mitral (valve) insufficiency; E78.5 Hyperlipidemia, unspecified; K21.9 Gastro-esophageal reflux disease without esophagitis; Z79.01 Long term (current) use of anticoagulants; Z79.83 Long term (current) use of bisphosphonates; Z79.899 Other long term (current) drug therapy; Z95.0 Presence of cardiac pacemaker
CPT/HCPCS: 11042; 11045

== ENCOUNTER 2024-07-31 11:30 | Emergency (ER) | payer MEDICARE, SELFPAY ==
[2024-07-31 11:31] VITALS: BP 152/71; PULSE 67; RESP 18; TEMP 36.7; O2SAT 98
--- NOTE | 2024-07-31 11:51 | EKG12_ITS ---
Test Reason : GENERAL Blood Pressure : / mmHG Vent. Rate : 066 BPM Atrial Rate : 068 BPM P-R Int : 000 ms QRS Dur : 168 ms QT Int : 418 ms P-R-T Axes : 000 -72 099 degrees QTc Int : 438 ms Ventricular-paced rhythm with occasional Premature ventricular complexes Abnormal ECG Confirmed by JEREMIAS MOHR, TASHI ([id number]), manager editorial JOHN MYRICK ([id number]) on 08/01/2024 1:49:37 PM Referred By: Rios Del Valle Confirmed By:TASHI MCDOWELL MD
--- NOTE | 2024-07-31 11:52 | EX.ED.DYSGE1 ---
HPI <CHARISSE Rangel - Last Filed: 07/31/24 14:39> History of Present Illness Chief Complaint: General Illness Narrative Narrative: 84-year-old female with history of CHF, pericardial effusion, GERD, arthritis, CAD, hypertension, atrial fibrillation on Coumadin who presents to the emergency department for worsening shortness of breath. Patient states that ever since 2018, she has to sit up with a couple pillows to help her breathing. Over the last 2 to 3 days, she is noted she had a put another pillow behind her. She also is more concerned because her legs are more swollen than usual. She has been seeing Dr. carrasco, and they have been messing with her Lasix, she is currently taking 40 mg twice a day, they also added spironolactone. She called the military science teacher office today and said that she is not feeling improved and they were requested her go to the [facility] apartment. She denies any specific pain however she says my chest feels funny. Patient states that most the problem is when she is laying flat, she denies any significant difficulty performing daily activities. Patient's CBC was unremarkable, patient's hemoglobin 11.0 which is stable. Patient's PT/INR shows INR 2.5, this is reasonable secondary to patient being on Coumadin. PT was 26.7. Patient's sodium is 126 however appears for the entire year of 2023, patient has had chronic low sodiums, creatinine 1.06, BNP was 472.9, 2 weeks ago, was 339.8, this is not a significant jump. Chest x-ray two-view showed stable mild increased markings at the lung bases, hyperinflation, no other acute process. Patient's troponin was negative at 22. A repeat will be drawn. Patient was able to ambulate around the department, she uses her cane, patient's blood oxygen level not drop low 96. I spoke with cardiology on-call, I went over the patient's chest x-ray, workup as well as the patient's daily medications. The military science teacher and I both agree that the patient can be discharged home. Patient second opponent was negative. She will continue to follow-up outpatient. She is happy with this plan of care and is stable for discharge. PFSH <CHARISSE Rangel - Last Filed: 07/31/24 14:39> PFSH Medical History Open wound of right upper extremity Non-pressure chronic ulcer of left 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 Non-pressure chronic ulcer of right 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 Open wound of knee Non-pressure 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 layer exposed Open wound of knee Wound, open, elbow Traumatic open wound of left lower leg Osteoarthritis of both knees Chronic anemia GERD (gastroesophageal reflux disease) Atrial fibrillation Pneumonia Hyponatremia CAD (coronary artery disease) Pericardial effusion intermediate current use of anticoagulant Hyperlipidemia Tear of biceps muscle Osteoarthrosis Diverticulitis Essential hypertension Nonrheumatic mitral valve regurgitation Pulmonary hypertension Diastolic congestive heart failure Longstanding persistent atrial fibrillation AV block, complete Home Medications ?Medication ?Instructions ?Recorded ?Last Taken ?Type docusate sodium 100 mg capsule 100 mg PO BID PRN constipation 06/03/21 12/16/23 History (Stool Softener) albuterol sulfate 90 mcg/actuation 2 puff inhalation Q6H PRN 03/22/22 Unknown History aerosol inhaler shortness of breath or wheezing Lactobacillus rhamnosus GG 5 1 tab PO DAILY PRN probiotic 02/20/23 Unknown History billion cell chewable tablet (ActBlue Probiotics) ondansetron 4 mg disintegrating 4 mg PO Q6H PRN PRN Nausea #10 tabs 08/17/23 12/16/23 Rx tablet ibandronate 150 mg tablet 150 mg PO QMONTH 01/07/24 Unknown History polyethylene glycol 3350 17 17 g PO DAILY PRN constipation 02/07/24 Unknown History gram/dose oral powder (Miralax) warfarin 1 mg tablet 1 mg PO .COMPLEX anticoagulation 02/07/24 Unknown History naloxegol 25 mg tablet (Movantik) 25 mg PO QAM PRN stomach upset 02/18/24 Unknown History losartan 100 mg tablet 100 mg PO DAILY #90 tabs 03/04/24 Unknown Rx calcitriol 0.25 mcg capsule 0.25 mcg PO DAILY see 04/07/24 Unknown History ergocalciferol (vitamin D2) 1,250 1,250 mcg PO QWEEK 04/07/24 Unknown History mcg (50,000 unit) capsule hydrocodone-acetaminophen 5-325mg 1 tab PO TID PRN Pain 04/07/24 Unknown History 5mg-325mg hehvcbvm-iun-fnnza acid 0.4 1 tab PO DAILY 04/07/24 Unknown History mg-lycopene 300 mcg-lutein 250 mcg tablet (Centrum Silver) carvedilol 12.5 mg tablet 12.5 mg PO BID htn #180 tabs 04/11/24 Unknown Rx furosemide 40 mg tablet 40 mg PO BID edema, shortness of 07/29/24 Unknown History breath spironolactone 25 mg tablet 25 mg PO QDAY #30 tabs 07/29/24 Unknown Rx Allergy/AdvReac Type Severity Reaction Status Date / Time Iodinated Contrast Media Allergy Rash Verified 07/31/24 11:31 (Iodinated Contrast- Oral and IV Dye) iodine Allergy Rash Verified 07/31/24 11:31 Penicillins (PCN) Allergy Rash Verified 07/31/24 11:31 ciprofloxacin (From Cipro) AdvReac Intermediate dizziness Verified 07/31/24 11:31 clindamycin AdvReac Intermediate nausea Verified 07/31/24 11:31 levofloxacin (From Levaquin) AdvReac Intermediate abdominal Verified 07/31/24 11:31 pain, nausea simvastatin AdvReac Intermediate Myalgias Verified 07/31/24 11:31 Family History Father , Age 82 CAD (coronary artery disease) Myocardial infarction CVA (cerebral vascular accident) Hypertension Mother , Age 94 Hypertension CVA (cerebral vascular accident) Sister Cancer Brother , Age 13 months from congenital heart defect Congenital heart defect Surgical History History of left heart catheterization (09/09/03) History of cardioversion (07/12/05) H/O colectomy History of bunionectomy History of appendectomy History of hysterectomy (1990) History of knee replacement (05/2018) History of tilt table evaluation (06/02/04) Hx of atrioventricular node ablation History of radiofrequency ablation procedure for cardiac arrhythmia Cardiac pacemaker in situ Social History household members: spouse Smoking Status: Never smoker alcohol intake: never substance use type: does not use caffeine: No ROS <CHARISSE Rangel - Last Filed: 07/31/24 14:39> ROS ED ROS Narrative Constitutional: Negative for fever, chills, weight loss, weakness Eyes: Negative for vision loss, vision change, double vision ENT: Negative for any sore throat, ear pain, congestion Cardiovascular: Negative for any chest pain, tightness, palpitations Respiratory: Negative for any cough, sputum production, hemoptysis, dyspnea, dyspnea on exertion. Positive for orthopnea Gastrointestinal: Negative for any abdominal pain, nausea, vomiting, diarrhea, constipation, blood in stool, blood in vomit : Negative for any urinary frequency, dysuria, retention, blood in urine Muscle skeletal: Negative for any neck pain, back pain. Positive for bilateral leg edema Neurological: Negative for any headache, syncope, dizziness Skin: Negative for any rashes, itching, abrasions, lacerations Psychiatric: Negative for any depression, anxiety, stress, suicidal ideation, homicidal ideation Hematologic: Negative for any excessive bruising, easy bleeding EXAM <CHARISSE Rangel - Last Filed: 07/31/24 14:39> Physical Exam Narrative Exam Narrative: Vital signs reviewed. Patient is in no distress, patient speaking complete sentences. HEET: Head normocephalic atraumatic, TMs clear bilaterally. Posterior pharynx is clear, moist mucous membranes. Nares clear bilaterally. Neck: Supple with no lymphadenopathy or tenderness. No signs of meningismus. Cardiac: Irregular rate, systolic murmur, no gallops or rubs, equal peripheral pulses bilaterally. Respiratory: Lungs clear to auscultation bilaterally. No chest tenderness. Abdomen: Soft, nontender, nondistended. No abdominal bruit or pulsatile masses. No hepatosplenomegaly Extremities: Patient does have slight lower leg edema, this is mostly to the patient's ankles, the left is worse than the right, no signs of gross trauma or deformity. Active full range of motion of all extremities. Patient's legs are wrapped secondary to chronic wounds. Neuro: Cranial nerves II through XII intact, no focal neurological deficits. Skin: Clean dry and intact with no rash, purpura, petechiae, vesicles or pustules. Backs/flank: No CVA tenderness, no midline spinal tenderness, no deformity. Psych: Normal mood and affect. No SI, HI or acute psychosis. Const Vital Signs: 07/31/24 11:31 07/31/24 11:51 07/31/24 12:19 Temperature 98.1 F Temperature Source Temporal Pulse Rate 67 Respiratory Rate 18 Respiratory Pattern Normal Blood Pressure 152/71 H Blood Pressure Mean 98 Pulse Ox 98 Oxygen Delivery Method Room Air Room Air 07/31/24 13:31 Temperature Temperature Source Pulse Rate 73 Respiratory Rate 18 Respiratory Pattern Blood Pressure 161/100 H Blood Pressure Mean 120 Pulse Ox 95 Oxygen Delivery Method Room Air <Dr. Rios Del Valle DO - Last Filed: 07/31/24 14:31> Physical Exam Const Vital Signs: 07/31/24 11:31 07/31/24 11:51 07/31/24 12:19 Temperature 98.1 F Temperature Source Temporal Pulse Rate 67 Respiratory Rate 18 Respiratory Pattern Normal Blood Pressure 152/71 H Blood Pressure Mean 98 Pulse Ox 98 Oxygen Delivery Method Room Air Room Air 07/31/24 13:31 Temperature Temperature Source Pulse Rate 73 Respiratory Rate 18 Respiratory Pattern Blood Pressure 161/100 H Blood Pressure Mean 120 Pulse Ox 95 Oxygen Delivery Method Room Air MDM <CHARISSE Rangel - Last Filed: 07/31/24 14:39> [facility] Lab Data Labs: Laboratory Results - last 24 hr 07/31/24 12:15 WBC 10.1 RBC 3.90 L Hgb 11.0 L Hct 33.5 L MCV 85.9 MCH 28.2 MCHC 32.8 RDW Std Deviation 49.4 H RDW Coeff of Donn 15.7 H Plt Count 326 MPV 8.4 Immature Gran % (Auto) 0.300 Neut % (Auto) 70.8 H Lymph % (Auto) 22.4 Keith % (Auto) 5.2 Eos % (Auto) 0.9 Baso % (Auto) 0.4 Absolute Neuts (auto) 7.2 Absolute Lymphs (auto) 2.27 Nucleated RBC % 0 PT 26.7 H INR 2.5 Sodium 126 L Potassium 3.6 Chloride 88 L Carbon Dioxide 31.0 Anion Gap 7 BUN 19 H Creatinine 1.06 H Estim Creat Clear Calc 35.51 Est GFR (MDRD) Af Amer 64 Est GFR (MDRD) Non-Af 53 L BUN/Creatinine Ratio 17.9 Glucose 122 H Calcium 10.2 H Troponin I High Sens 22 B-Natriuretic Peptide 472.9 H Radiography Diagnostic Testing: Clinical Impression(s) from Imaging Studies Chest X-Ray 07/31/24 13:00 IMPRESSION: Hyperinflation. Stable mild increased markings at the lung bases suggestive scarring. Electronically Signed: Trevin Montalvo MD at 13:30 EDT , Treatment and Re-Evaluation :: Differential diagnosis includes however is not limited to: CHF exacerbation, pericardial effusion, acute on chronic CHF, decreased ejection fraction, anxiety, medication reaction, ACS, NE Patient appears generally well, vital signs are stable, patient is nontoxic-appearing. Presenting to the emergency department with complaints of worsening shortness of breath while lying flat. Patient does have a history of CHF, patient received some cardiac workup including troponin, BNP, basic laboratory values. Patient received a two-view chest x-ray, I will perform a PT/INR secondary the patient be on Coumadin. On my initial evaluation, patient does not appear to be in any distress. I will likely need to reach out to cardiology. All radiologic examinations were read, reviewed by the emergency department attending. From these reads, a plan of care will be put in place. <Dr. Rios Del Valle, DO - Last Filed: 07/31/24 14:31> [facility] Narrative Medical decision making narrative: I have personally performed a face to face assessment of the patient and have reviewed the CINTHIA Note. I performed a substantive portion of the visit including all aspects of the following. My puentes findings include: History: Patient presents with orthopnea that has been getting worse over the last 2 days. Patient states she gets short of breath anytime she lays flat. Patient states she has to sit up and sleep in a recliner. Patient states that her military science teacher has been adjusting her diuretic medications recently. Patient denies any chest pain. Patient denies any nausea or vomiting. Patient denies any diaphoresis. Patient states he does have a history of congestive heart failure and pericardial effusions in the past. Exam: Vital signs are stable. Patient is afebrile. Patient is in no acute distress. Oral mucosa is pink and moist. Neck is supple. Trachea is midline. There is no JVD. Heart was regular rate and rhythm. Lungs are clear and equal bilaterally. Abdomen is soft. Bowel sounds are normal. There is no tenderness. Cranial nerves II through XII are intact. There are no focal motor or sensory deficits noted. Patient ambulated without difficulty. Medical Decision Making: Differential diagnosis includes congestive heart failure, cardiac dysrhythmia, cardiac ischemia, and pneumonia. EKG will be obtained to assess for cardiac dysrhythmia and cardiac ischemia. Chest x-ray will be obtained to assess for pneumonia and cardiomegaly. CBC will be obtained to assess for leukocytosis and anemia. Basic metabolic profile will be obtained to assess for electrolyte abnormality and renal function. PT with INR will be obtained to assess for coagulopathy. High-sensitivity troponin will be obtained to assess for cardiac ischemia. BNP will be obtained to assess for congestive heart failure. EKG was obtained. On my independent interpretation, it shows a paced rhythm with a rate of 66. There there is a left bundle branch block pattern noted. There are no acute ST or T wave changes noted. PA and lateral chest x-ray was obtained. There are 2 views. On my independent interpretation, lung salas are hyperinflated with chronic changes. There is borderline cardiomegaly. Bony thorax is normal. There is no acute process noted. Radiologist also interpreted the x-ray and agrees. CBC was reviewed. There is a mild anemia with a hemoglobin of 11.0 and hematocrit 33.5. The remainder is within normal limits. PT with INR was reviewed. Pro time was 26.7 and INR is 2.5. Basic metabolic profile was reviewed. Sodium was slightly low at 126 and chloride was slightly low at 88. The remainder is within normal limits. High-sensitivity troponin was reviewed and was normal at 22. BNP was reviewed and was 472.9. This is only mildly increased from previous result. Patient was advised of her findings. Case was discussed with Dr. Ricci. He will have the patient follow-up as an outpatient. He is agreeable to have the patient discharged. Patient understands and is agreeable with the plan. All questions were answered. Lab Data Labs: Laboratory Results - last 24 hr 07/31/24 12:15 WBC 10.1 RBC 3.90 L Hgb 11.0 L Hct 33.5 L MCV 85.9 MCH 28.2 MCHC 32.8 RDW Std Deviation 49.4 H RDW Coeff of Donn 15.7 H Plt Count 326 MPV 8.4 Immature Gran % (Auto) 0.300 Neut % (Auto) 70.8 H Lymph % (Auto) 22.4 Keith % (Auto) 5.2 Eos % (Auto) 0.9 Baso % (Auto) 0.4 Absolute Neuts (auto) 7.2 Absolute Lymphs (auto) 2.27 Nucleated RBC % 0 PT 26.7 H INR 2.5 Sodium 126 L Potassium 3.6 Chloride 88 L Carbon Dioxide 31.0 Anion Gap 7 BUN 19 H Creatinine 1.06 H Estim Creat Clear Calc 35.51 Est GFR (MDRD) Af Amer 64 Est GFR (MDRD) Non-Af 53 L BUN/Creatinine Ratio 17.9 Glucose 122 H Calcium 10.2 H Troponin I High Sens 22 B-Natriuretic Peptide 472.9 H Radiography Diagnostic Testing: Clinical Impression(s) from Imaging Studies Chest X-Ray 07/31/24 13:00 IMPRESSION: Hyperinflation. Stable mild increased markings at the lung bases suggestive scarring. Electronically Signed: Trevin Montalvo MD at 13:30 EDT , EKG Initial EKG: Attestation: I personally reviewed and interpreted this EKG as follows: Interpretation: Paced (66), LBBB and Non-Specific ST Changes Comments: EKG was obtained. On my independent interpretation, it shows a paced rhythm with a rate of 66. QRS interval was prolonged at 168 ms. QTc interval was normal at 438 ms. There is left axis deviation at -72. There is a left bundle branch block pattern noted. There are no acute ST or T wave changes noted. Prior EKG tracings: available for review Prior: Unchanged (06/17/2024) Discharge Plan Triage Chief Complaint: General Illness ED Midlevel Provider: Garfield Joyner ED Provider: Rios Del Valle Dx/Rx/DC Orders Clinical Impression: Orthopnea, Leg edema, History of acquired CHF (congestive heart failure) Instructions: Shortness of Breath Coping, ED Peripheral Edema, Bilateral Prescriptions: No Action docusate sodium [Stool Softener] 100 mg capsule 100 mg PO BID PRN (Reason: constipation) calcitriol 0.25 mcg capsule 0.25 mcg PO DAILY Rx Instructions: Take 1 capsule BID on MWF, 1 capsule daily all other days albuterol sulfate 90 mcg/actuation HFA aerosol inhaler 2 puff inhalation Q6H PRN (Reason: shortness of breath or wheezing) Patient Comments: inhale 2 puffs by mouth and INTO THE LUNGS every 6 hours if needed for wheezing Culturelle Kids Probiotics 5 billion cell tablet,chewable 1 tab PO DAILY PRN (Reason: probiotic) polyethylene glycol 3350 [Miralax] 17 gram/dose powder 17 g PO DAILY PRN (Reason: constipation) ibandronate 150 mg tablet 150 mg PO QMONTH ergocalciferol (vitamin D2) 1,250 mcg (50,000 unit) capsule 1,250 mcg PO QWEEK Centrum Silver 0.4 mg-300 mcg- 250 mcg tablet 1 tab PO DAILY warfarin 1 mg tablet 1 mg PO .COMPLEX Rx Instructions: coumadin 9 mg on Sunday, 6 mg rest. Managed by PCP Movantik 25 mg tablet 25 mg PO QAM PRN (Reason: stomach upset) Rx Instructions: must be taken on empty stomach; no food 1 hr after or 2-3 hrs before dose hydrocodone-acetaminophen 5-325 mg tablet 1 tab PO TID PRN (Reason: Pain) ondansetron 4 mg tablet,disintegrating 4 mg PO Q6H PRN PRN (Reason: Nausea) Qty: 10 0RF losartan 100 mg tablet 100 mg PO DAILY Qty: 90 3RF carvedilol 12.5 mg tablet 12.5 mg PO BID Qty: 180 3RF Rx Instructions: must administer with a meal/food furosemide 40 mg tablet 40 mg PO BID spironolactone 25 mg tablet 25 mg PO QDAY Qty: 30 11RF Primary Care Provider: Rashad Peñaloza Referrals: Paulo Carrasco MD [Med Staff - Active Staff] - Rashad Peñaloza MD [Primary Care Provider] - Print Language: Fijian Disposition Disposition: Home, Self Care
[2024-07-31 12:18] VITALS: BMI 27.2
[2024-07-31 12:23] LABS: Absolute Lymphocyte Count 2.27 X10^3/uL (0.83-4.51); Absolute Neutrophil Count 7.2 X10^3/uL (2.0-7.7); Basophil# 0.04 X10^3/uL; Basophil% 0.4 % (0-1); Eosinophil# 0.09 X10^3/uL; Eosinophils% 0.9 % (0-5); Hematocrit 33.5 % (37-47); Lymphocyte # 2.27 X10^3/ul (0.83-4.51); Lymphocyte % 22.4 % (19-41); Mean Corp Hgb Conc 32.8 g/dL (32-36); Mean Corpuscular Hgb 28.2 pg (27.0-32.0); Mean Corpuscular Volume 85.9 fL (81-99); Mean Platelet Vol. 8.4 fl (6.2-12.0); Monocyte# 0.53 X10^3/uL; Monocyte% 5.2 % (0-10); NRBC Flagged by Analyzer 0 % (0-5); Neutrophil # 7.16 X10^3/uL (2.7-7.7); Neutrophil % 70.8 % (47-70); Platelet Count 326 K/mm3 (150-450); RBC Distribution Width CV 15.7 % (11.6-14.6); RBC Distribution Width SD 49.4 fl (35.1-43.9); White Blood Count 10.1 K/mm3 (4.4-11.0)
[2024-07-31 12:42] LABS: International Normalized Ratio 2.5; Prothrombin Time (Protime)PT. 26.7 SECONDS (11.7-14.9)
[2024-07-31 12:47] LABS: Anion Gap 7 (5-15); BUN 19 mg/dL (7-18); BUN/Creat Ratio 17.9 RATIO (10-20); Calcium,Total 10.2 mg/dL (8.5-10.1); Chloride 88 mmol/L (98-107); Creatinine, Serum 1.06 mg/dL (0.55-1.02); EST Glomerular Filtration Rate 53 mL/min (>60); Est Glom Filt Rate - Afr Amer 64 mL/min (>60); Estimated Creatinine Clearance 35.51 ml/min; Glucose 122 mg/dL (74-106); Potassium 3.6 mmol/L (3.5-5.1); Sodium Level 126 mmol/L (136-145); Troponin-I HS (w/2H Reflex) 22 pg/mL (3.0-54.0)
[2024-07-31 12:51] LABS: BNP,B-Type NATRIURETIC PEPTIDE 472.9 pg/mL (0-100)
--- NOTE | 2024-07-31 13:00 | RAD_ITS ---
STUDY: X-RAY CHEST REASON FOR EXAM: Female, 84 years old. Chest pain TECHNIQUE: PA and lateral views of the chest. COMPARISON: Comparison is made with prior study June 17, 2024. FINDINGS: EKG electrodes are seen. Hyperinflation. Stable mild increased markings at the lung bases suggestive of scarring. There is no demonstrated pleural abnormality. There is moderate cardiac enlargement. Left-sided dual-chamber pacemaker is seen. Normal mediastinum and luis. Normal visualized pulmonary arteries. There is atherosclerotic tortuosity of the aortic arch and descending thoracic aorta. There is demineralization of the osseous structures. Increased kyphosis. There is degenerative osteoarthritis of the bilateral shoulders. There is no demonstrated abnormality of the visualized soft tissue structures of the upper abdomen. RAD/Chest PA and Lateral IMPRESSION: Hyperinflation. Stable mild increased markings at the lung bases suggestive scarring. Electronically Signed: Trevin Montalvo MD at 13:30 EDT ,
[2024-07-31 13:31] VITALS: BP 161/100; PULSE 73; RESP 18; O2SAT 95
[2024-07-31 14:04] VITALS: O2SAT 98
[2024-07-31 14:19] LABS: Reflex Troponin-HS? (from REC) Y
[2024-07-31 14:49] LABS: Troponin-I HS 20 pg/mL (3.0-54.0)
== END 2024-07-31 15:19 | disposition home or self-care (01) ==
PROVIDERS: Nurse Practitioner; Emergency Provider Emergency Medicine; PCP Family Medicine; Referring Provider Emergency Medicine; Visit Provider Emergency Medicine
DX: R06.01 Orthopnea (principal); I11.0 Hypertensive heart disease with heart failure; I50.32 Chronic diastolic (congestive) heart failure; M79.89 Other specified soft tissue disorders; I25.10 Atherosclerotic heart disease of native coronary artery without angina pectoris; Z79.01 Long term (current) use of anticoagulants
CPT/HCPCS: 71046; 80048; 83880; 84484; 85025; 85610; 93005; 99283; A4216

== ENCOUNTER → 2024-08-06 | Outpatient (CLI) | payer MEDICARE, SELFPAY ==
[2024-08-06 14:13] LABS: BNP,B-Type NATRIURETIC PEPTIDE 515.4 pg/mL (0-100)
[2024-08-06 14:15] LABS: Anion Gap 7 (5-15); BUN 25 mg/dL (7-18); BUN/Creat Ratio 22.7 RATIO (10-20); Calcium,Total 10.1 mg/dL (8.5-10.1); Chloride 88 mmol/L (98-107); EST Glomerular Filtration Rate 50 mL/min (>60); Est Glom Filt Rate - Afr Amer 61 mL/min (>60); Glucose 112 mg/dL (74-106); Potassium 4.5 mmol/L (3.5-5.1); Sodium Level 124 mmol/L (136-145)
== END | disposition home or self-care (01) ==
LOC: LAB 12:54
PROVIDERS: PCP Family Medicine; Referring Provider Internal Medicine Cardiovascular Disease; Visit Provider Internal Medicine Cardiovascular Disease
DX: R06.02 Shortness of breath (principal); R60.0 Localized edema
CPT/HCPCS: 36415; 80048; 83880

== ENCOUNTER → 2024-08-11 | Outpatient (CLI) | payer MEDICARE, SELFPAY ==
--- NOTE | 2024-08-11 11:08 | ECHOL_ITS ---
Reason For Study: Pericardial Effusion Procedure This was a limited 2D transthoracic echocardiogram. Technically difficult study. Echo done with patient sitting upright due to SOB. Patient was unable to lay in left lateral or supine positioning. Exam performed in department. Left Ventricle Normal LV size. Mild concentric left ventricular hypertrophy. Left ventricular systolic function is normal. The left ventricular ejection fraction is 60 %. No regional wall motion abnormalities noted. Right Ventricle Normal RV size. ICD or pacer leads identified within the right ventricle. Normal systolic function. Atria The left atrium is severely enlarged. The right atrium is mildly enlarged. Mitral Valve Bileaflet diffuse mitral valve thickening. Moderate (2+) eccentric mitral valve insufficiency. Tricuspid Valve Normal tricuspid valve. Moderate (2+) tricuspid valve insufficiency. Pulmonary artery systolic pressure is 54 mmHg. Mild pulmonary hypertension. Aortic Valve Trisinus/trileaflet aortic valve. Mild focal aortic valve calcification. Mild (1+) aortic valve insufficiency. Great Vessels Normal aortic root. The pulmonary artery is normal size. The inferior vena cava is dilated. Pericardium/Pleural No pericardial effusion. MMode/2D Measurements & Calculations LVIDd: 4.1 cm IVSd: 1.2 cm LVOT diam: 2.0 cm LVIDs: 2.8 cm LVPWd: 1.2 cm LVOT area: 3.1 cm2 RVDd: 3.6 cm FS: 30.7 % LA dimension: 5.3 cm LAV(MOD-bp): 120.0 ml LA A4 area: 37.2 cm2 LAV(MOD-bp) Indexed: 73.7 ml/m2 LAV(MOD-sp2): 92.1 ml LAV(MOD-sp4): 145.4 ml RA A4 area: 21.3 cm2 Doppler Measurements & Calculations MV E max stephanie: 169.8 cm/sec MV V2 max: 202.0 cm/sec MV P1/2t max stephanie: 202.8 cm/sec MV max P.3 mmHg MV P1/2t: 85.4 msec MV V2 mean: 87.1 cm/sec MV dec slope: 695.6 cm/sec2 MV mean P.4 mmHg MVA(P1/2t): 2.6 cm2 MV V2 VTI: 41.0 cm MVA(VTI): 1.8 cm2 Ao V2 max: 183.0 cm/sec AI max stephanie: 469.3 cm/sec LV V1 max: 123.6 cm/sec Ao max P.4 mmHg AI max P.1 mmHg LV V1 max P.1 mmHg Ao V2 mean: 113.3 cm/sec AI dec slope: 171.6 cm/sec2 LV V1 mean P.5 mmHg Ao mean P.1 mmHg AI P1/2t: 801.1 msec LV V1 mean: 70.4 cm/sec Ao V2 VTI: 33.1 cm LV V1 VTI: 22.9 cm AV (velocity ratio): 0.69 FRANCHESCA(I,D): 2.2 cm2 FRANCHESCA(V,D): 2.1 cm2 MR max stephanie: 606.0 cm/sec SV(LVOT): 71.8 ml TR max stephanie: 351.7 cm/sec MR max P.9 mmHg TR max P.5 mmHg MR mean stephanie: 510.0 cm/sec MR mean P.9 mmHg MR VTI: 212.5 cm ECHO/Echo, Limited Study Interpretation Summary Normal LV size. Left ventricular systolic function is normal. The left ventricular ejection fraction is 60 %. Pulmonary artery systolic pressure is 54 mmHg. Mild pulmonary hypertension. Mild concentric left ventricular hypertrophy. Ordering Physician: Paulo Carrasco Referring Physician: Paulo Carrasco Performed By: Wilmer Travis RCS
== END | disposition home or self-care (01) ==
LOC: CVS 11:06
PROVIDERS: PCP Family Medicine; Referring Provider Internal Medicine Cardiovascular Disease; Visit Provider Internal Medicine Cardiovascular Disease
DX: I31.39 Other pericardial effusion (noninflammatory) (principal)
CPT/HCPCS: 93308

== ENCOUNTER 2024-08-16 19:58 | Emergency (ER) | payer MEDICARE, SELFPAY ==
[2024-08-16 19:59] VITALS: BP 154/96; PULSE 67; RESP 19; TEMP 36.6; O2SAT 97
[2024-08-16 20:23] VITALS: BMI 26.5
--- NOTE | 2024-08-16 20:44 | EKG12_ITS ---
Test Reason : DYSRHYTHMIA Blood Pressure : / mmHG Vent. Rate : 060 BPM Atrial Rate : 326 BPM P-R Int : 000 ms QRS Dur : 158 ms QT Int : 428 ms P-R-T Axes : 000 -68 097 degrees QTc Int : 428 ms Atrial fibrillation with Ventricular-paced rhythm Abnormal ECG Confirmed by Paulo Carrasco ([id number]), content editor CLAIRE QUEEN ([id number]) on 08/18/2024 11:31:54 AM Referred By: Confirmed By:Paulo Carrasco
--- NOTE | 2024-08-16 20:45 | EDS_ITS ---
HPI History of Present Illness Chief Complaint: Shortness of Breath Narrative Narrative: 84-year-old female past medical history of congestive heart failure, states she had a pericardial effusion that was drained 6 years ago, presents with increasing shortness of breath and orthopnea. She states she has had a hard time breathing for quite some time. She and her relate history that they were seen at [facility] last week, on Sunday, and she was admitted for hyponatremia. She states that she had an echocardiogram done here at the hospital recently and everything checked out fine. She denies any fevers or chills, no cough, but states that she is fine during the day when she is up and about but when she goes to lay down, she has difficulty breathing. 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 Open wound of knee Non-pressure 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 layer exposed Open wound of knee Wound, open, elbow Traumatic open wound of left lower leg Osteoarthritis of both knees Chronic anemia GERD (gastroesophageal reflux disease) Atrial fibrillation Pneumonia Hyponatremia CAD (coronary artery disease) Pericardial effusion assisted current use of anticoagulant Hyperlipidemia Tear of biceps muscle Osteoarthrosis Diverticulitis Essential hypertension Nonrheumatic mitral valve regurgitation Pulmonary hypertension Diastolic congestive heart failure Longstanding persistent atrial fibrillation AV block, complete Home Medications ?Medication ?Instructions ?Recorded ?Last Taken ?Type docusate sodium 100 mg capsule 100 mg PO BID PRN constipation 06/03/21 12/16/23 History (Stool Softener) Lactobacillus rhamnosus GG 5 1 tab PO DAILY PRN probiotic 02/20/23 Unknown History billion cell chewable tablet ([employer] Probiotics) ondansetron 4 mg disintegrating 4 mg PO Q6H PRN PRN Nausea #10 tabs 08/17/23 12/16/23 Rx tablet ibandronate 150 mg tablet 150 mg PO QMONTH 01/07/24 Unknown History polyethylene glycol 3350 17 17 g PO DAILY PRN constipation 02/07/24 Unknown History gram/dose oral powder (Miralax) warfarin 1 mg tablet 1 mg PO .COMPLEX anticoagulation 02/07/24 Unknown History naloxegol 25 mg tablet (Movantik) 25 mg PO QAM PRN stomach upset 02/18/24 Unknown History losartan 100 mg tablet 100 mg PO DAILY #90 tabs 03/04/24 Unknown Rx calcitriol 0.25 mcg capsule 0.25 mcg PO DAILY see mar 04/07/24 Unknown History ergocalciferol (vitamin D2) 1,250 1,250 mcg PO QWEEK 04/07/24 Unknown History mcg (50,000 unit) capsule hydrocodone-acetaminophen 5-325mg 1 tab PO TID PRN Pain 04/07/24 Unknown History 5mg-325mg fsxhrwvh-ccl-qsxje acid 0.4 1 tab PO DAILY 04/07/24 Unknown History mg-lycopene 300 mcg-lutein 250 mcg tablet (Centrum Silver) carvedilol 12.5 mg tablet 12.5 mg PO BID htn #180 tabs 04/11/24 Unknown Rx furosemide 40 mg tablet 40 mg PO BID edema, shortness of 07/29/24 Unknown History breath spironolactone 25 mg tablet 25 mg PO QDAY #30 tabs 07/29/24 Unknown Rx Allergy/AdvReac Type Severity Reaction Status Date / Time Iodinated Contrast Media Allergy Rash Verified 08/16/24 19:59 (Iodinated Contrast- Oral and IV Dye) iodine Allergy Rash Verified 08/16/24 19:59 Penicillins (PCN) Allergy Rash Verified 08/16/24 19:59 ciprofloxacin (From Cipro) AdvReac Intermediate dizziness Verified 08/16/24 19:59 clindamycin AdvReac Intermediate nausea Verified 08/16/24 19:59 levofloxacin (From Levaquin) AdvReac Intermediate abdominal Verified 08/16/24 19:59 pain, nausea simvastatin AdvReac Intermediate Myalgias Verified 08/16/24 19:59 Family History Father , Age 82 CAD (coronary artery disease) Myocardial infarction CVA (cerebral vascular accident) Hypertension Mother , Age 94 Hypertension CVA (cerebral vascular accident) Sister Cancer Brother , Age 13 months from congenital heart defect Congenital heart defect Surgical History History of left heart catheterization (09/09/03) History of cardioversion (07/12/05) H/O colectomy History of bunionectomy History of appendectomy History of hysterectomy (1990) History of knee replacement (05/2018) History of tilt table evaluation (06/02/04) Hx of atrioventricular node ablation History of radiofrequency ablation procedure for cardiac arrhythmia Cardiac pacemaker in situ Social History household members: spouse Smoking Status: Never smoker alcohol intake: never substance use type: does not use caffeine: No ROS ROS ED ROS Narrative Constitutional: No fever, no chills. HEENT: No sore throat. No neck pain. No loss of vision. No rhinorrhea. Cardiovascular: No chest pain. No palpitations. Chronic pedal edema. Respiratory: No cough, positive orthopnea and shortness of breath. Abdominal: No abdominal pain. No nausea. No vomiting. Genitourinary: No dysuria. No hematuria. Musculoskeletal: No myalgias. No arthralgias. Neurologic: No headaches. No dizziness. No lightheadedness. Skin: No rash. No change in color. Psychiatric: No depression. No anxiety. EXAM Physical Exam Narrative Exam Narrative: Afebrile. Vital signs noted. Regular rate and rhythm. Lungs are clear to auscultation bilaterally. No tachypnea. Abdomen soft nontender with normal active bowel sounds. Neurological examination is nonfocal and nonlateralizing. She was seen ambulating from the bathroom with her cane. Upon return, she was not excessively tachypneic. She has chronic bilateral lower extremity pedal edema. Const Vital Signs: 08/16/24 19:59 08/16/24 20:24 Temperature 97.8 F Temperature Source Temporal Pulse Rate 67 Respiratory Rate 19 H Respiratory Effort Normal Non-Labored Respiratory Depth Normal Respiratory Pattern Normal Blood Pressure 154/96 H Blood Pressure Mean 115 Pulse Ox 97 Oxygen Delivery Method Room Air Room Air MDM MDM MDM Narrative Medical decision making narrative: Differential diagnosis includes but not limited to CHF exacerbation versus pericardial effusion versus COPD versus pneumonia versus pneumothorax. I have lower suspicion for the latter 3 diagnoses as she does not have a history of COPD, she does not have a cough or a fever, and she has equal breath sounds bilaterally that are clear. I reviewed her prior records including her echocardiogram. According to the dictation, she has normal left ventricular function with an ejection fraction of 60%. No noted pericardial effusion. EKG was obtained and interpreted by myself independently as a paced rhythm at [address] changes. No STEMI. I reviewed her laboratory work and she has normal white count of 7.8, hemoglobin stable at 9.5, platelet count 260. Sodium is low at 126 but she has a chronic hyponatremia. Potassium normal at 4.9, BUN of 25 and creatinine 1.18 with history of chronic kidney injury. Glucose appropriately elevated at 112 with normal anion gap of 9. LFTs are grossly unremarkable. High-sensitivity troponin is 18. I do not feel she needs serial enzymes. While her BNP is elevated at 378.1, it has been higher in the past. Chest x-ray in 1 view interpreted by myself independently shows no evidence of CHF, pneumonia, or pneumothorax. There is pacemaker visible. I reviewed the radiology report which confirms my independent interpretation. Upon repeat examination at approximately 2240, she is more upright with her feet elevated she states that her breathing has improved. She is not hypoxic. I reviewed her problem list and she has had orthopnea in the past. While I am unsure as to the cause of this, I do not feel that she requires observation or admission at this time. She states she can see her certified income tax preparer as recommended until December. I feel she can be discharged to follow-up with her primary care provider. Return instructions to the emergency department were reviewed. Disposition is discharged home in stable condition. History & Record Review Discussion w/independent historian: Patient Additional record(s) reviewed:: Prior outpatient record and Prior labs Lab Data Attestation: I reviewed the patient's lab results. Labs: Laboratory Results - last 24 hr 08/16/24 21:09 WBC 7.8 RBC 3.35 L Hgb 9.5 L Hct 28.7 L MCV 85.7 MCH 28.4 MCHC 33.1 RDW Std Deviation 48.8 H RDW Coeff of Donn 15.5 H Plt Count 260 MPV 8.2 Immature Gran % (Auto) 0.300 Neut % (Auto) 69.5 Lymph % (Auto) 19.7 Forrest % (Auto) 9.5 Eos % (Auto) 0.6 Baso % (Auto) 0.4 Absolute Neuts (auto) 5.4 Absolute Lymphs (auto) 1.53 Nucleated RBC % 0 Sodium 126 L Potassium 4.9 Chloride 91 L Carbon Dioxide 26.0 Anion Gap 9 BUN 25 H Creatinine 1.18 H Estim Creat Clear Calc 31.59 Est GFR (MDRD) Af Amer 56 L Est GFR (MDRD) Non-Af 46 L BUN/Creatinine Ratio 21.2 H Glucose 112 H Calcium 9.5 Total Bilirubin 0.70 AST 23 ALT 20 Alkaline Phosphatase 107 Troponin I High Sens 18 B-Natriuretic Peptide 378.1 H Total Protein 7.2 Albumin 3.5 Globulin 3.7 Albumin/Globulin Ratio 0.9 Radiography Diagnostic Testing: Clinical Impression(s) from Imaging Studies Chest X-Ray 08/16/24 21:12 IMPRESSION: 1. No acute cardiopulmonary abnormality. 2. Stable cardiomegaly. 3. Severe degenerative changes of the bilateral shoulder. Electronically Signed: Paulo Mazariegos MD at 22:10 EDT , Discharge Plan Triage Chief Complaint: Shortness of Breath ED Provider: Naren Mukherjee Dx/Rx/DC Orders Clinical Impression: Orthopnea, Dyspnea Prescriptions: No Action docusate sodium [Stool Softener] 100 mg capsule 100 mg PO BID PRN (Reason: constipation) calcitriol 0.25 mcg capsule 0.25 mcg PO DAILY Rx Instructions: Take 1 capsule BID on , 1 capsule daily all other days [employer] Probiotics 5 billion cell tablet,chewable 1 tab PO DAILY PRN (Reason: probiotic) polyethylene glycol 3350 [Miralax] 17 gram/dose powder 17 g PO DAILY PRN (Reason: constipation) ibandronate 150 mg tablet 150 mg PO QMONTH ergocalciferol (vitamin D2) 1,250 mcg (50,000 unit) capsule 1,250 mcg PO QWEEK Centrum Silver 0.4 mg-300 mcg- 250 mcg tablet 1 tab PO DAILY warfarin 1 mg tablet 1 mg PO .COMPLEX Rx Instructions: coumadin 9 mg on Sunday, 6 mg rest. Managed by PCP Movantik 25 mg tablet 25 mg PO QAM PRN (Reason: stomach upset) Rx Instructions: must be taken on empty stomach; no food 1 hr after or 2-3 hrs before dose hydrocodone-acetaminophen 5-325 mg tablet 1 tab PO TID PRN (Reason: Pain) ondansetron 4 mg tablet,disintegrating 4 mg PO Q6H PRN PRN (Reason: Nausea) Qty: 10 0RF losartan 100 mg tablet 100 mg PO DAILY Qty: 90 3RF carvedilol 12.5 mg tablet 12.5 mg PO BID Qty: 180 3RF Rx Instructions: must administer with a meal/food furosemide 40 mg tablet 40 mg PO BID spironolactone 25 mg tablet 25 mg PO QDAY Qty: 30 11RF Primary Care Provider: Rashad Peñaloza Referrals: Rashad Peñaloza MD [Primary Care Provider] - 3-5 Days if not improving Activity Restrictions/Additional Instructions: You may need to sleep more upright/in a more upright position. Follow-up with your primary care provider. Return with increased difficulty breathing, new or worsening symptoms. Print Language: Spanish Disposition Disposition: Home, Self Care
--- NOTE | 2024-08-16 21:12 | RAD_ITS ---
EXAM: XR CHEST, 1 VIEW CLINICAL INDICATION: Shortness of breath TECHNIQUE: Frontal view of the chest. COMPARISON: 07/31/2024. FINDINGS: LUNGS AND PLEURAL SPACES: Unremarkable. No consolidation or edema. No pneumothorax. No effusion. HEART: Stable cardiomegaly. MEDIASTINUM: Central airways and mediastinal contour are unremarkable. BONES/JOINTS: Severe degenerative changes in the bilateral shoulder. No acute fracture. SOFT TISSUES: Unremarkable. TUBES, LINES AND DEVICES: No change pacemaker. RAD/Chest 1 View (Portable) IMPRESSION: 1. No acute cardiopulmonary abnormality. 2. Stable cardiomegaly. 3. Severe degenerative changes of the bilateral shoulder. Electronically Signed: Paulo Mazariegos MD at 22:10 EDT ,
[2024-08-16 21:17] LABS: Absolute Lymphocyte Count 1.53 X10^3/uL (0.83-4.51); Absolute Neutrophil Count 5.4 X10^3/uL (2.0-7.7); Basophil# 0.03 X10^3/uL; Basophil% 0.4 % (0-1); Eosinophil# 0.05 X10^3/uL; Eosinophils% 0.6 % (0-5); Hematocrit 28.7 % (37-47); Hemoglobin 9.5 g/dL (12.0-15.0); Lymphocyte # 1.53 X10^3/ul (0.83-4.51); Lymphocyte % 19.7 % (19-41); Mean Corp Hgb Conc 33.1 g/dL (32-36); Mean Corpuscular Hgb 28.4 pg (27.0-32.0); Mean Corpuscular Volume 85.7 fL (81-99); Mean Platelet Vol. 8.2 fl (6.2-12.0); Monocyte# 0.74 X10^3/uL; Monocyte% 9.5 % (0-10); NRBC Flagged by Analyzer 0 % (0-5); Neutrophil # 5.38 X10^3/uL (2.7-7.7); Neutrophil % 69.5 % (47-70); Platelet Count 260 K/mm3 (150-450); RBC Distribution Width CV 15.5 % (11.6-14.6); RBC Distribution Width SD 48.8 fl (35.1-43.9); Red Blood Count 3.35 M/mm3 (4.2-5.4); White Blood Count 7.8 K/mm3 (4.4-11.0)
[2024-08-16 21:33] LABS: BNP,B-Type NATRIURETIC PEPTIDE 378.1 pg/mL (0-100)
[2024-08-16 21:36] LABS: ALB/GLOB Ratio 0.9 RATIO (0.9-2.4); AST(SGOT) 23 U/L (15-37); Alanine Aminotransfer ALT/SGPT 20 U/L (13-56); Albumin, Serum 3.5 g/dL (3.2-5.0); Alkaline Phosphatase 107 U/L (45-117); Anion Gap 9 (5-15); BUN 25 mg/dL (7-18); BUN/Creat Ratio 21.2 RATIO (10-20); Calcium,Total 9.5 mg/dL (8.5-10.1); Chloride 91 mmol/L (98-107); Creatinine, Serum 1.18 mg/dL (0.55-1.02); EST Glomerular Filtration Rate 46 mL/min (>60); Est Glom Filt Rate - Afr Amer 56 mL/min (>60); Estimated Creatinine Clearance 31.59 ml/min; Globulin 3.7 g/dL (2.2-4.2); Glucose 112 mg/dL (74-106); Potassium 4.9 mmol/L (3.5-5.1); Protein, Total 7.2 g/dL (6.4-8.2); Sodium Level 126 mmol/L (136-145); Troponin-I HS 18 pg/mL (3.0-54.0)
[2024-08-16 22:00] VITALS: BP 140/65; PULSE 63; RESP 19; TEMP 37.1; O2SAT 95
== END 2024-08-16 22:58 | disposition home or self-care (01) ==
PROVIDERS: Emergency Provider Emergency Medicine; PCP Family Medicine; Visit Provider Emergency Medicine
DX: R06.01 Orthopnea (principal); I11.0 Hypertensive heart disease with heart failure; I50.32 Chronic diastolic (congestive) heart failure; I25.10 Atherosclerotic heart disease of native coronary artery without angina pectoris; Z95.0 Presence of cardiac pacemaker
CPT/HCPCS: 71045; 80053; 83880; 84484; 85025; 93005; 99284; A4216

== ENCOUNTER 2024-08-26 14:00 | Outpatient (RCR) | payer MEDICARE, SELFPAY ==
[2024-07-29 00:12] VITALS: BP 171/89; PULSE 70; RESP 18; TEMP 36.2; BMI 24.8
[2024-07-29 14:06] VITALS: BP 158/65; PULSE 62; RESP 18; TEMP 36.1; BMI 24.8
--- NOTE | 2024-07-30 11:57 | WC ---
PHOTO 07/29/24 RIGHT KNEE
--- NOTE | 2024-07-30 12:00 | WC ---
PHOTO 07/29/24 LEFT LATERAL LEG
--- NOTE | 2024-07-30 12:33 | HP.PCM_ITS ---
History of Present Illness Date of Service: 07/29/24 Chief Complaint: Traumatic wound of the left lateral calf, left knee, right knee, and right lateral calf History of Wound: This is an 83-year-old female who had [facility] to a traumatic wound on the left lateral calf. The wound occurred as a result of an impact with an open car door. The wound occurred on April 04, 2024, and the patient was initially seen and evaluated in the emergency department at [facility] in [place], [place]. She was treated with a prescription for cephalexin 500 mg p.o. twice daily for total of 10 days, which was completed. She subsequently presented for evaluation and management at the [facility], where initial treatment included the use of Aquacel topically, and Tubigrips. The patient has multiple pre-existing medical problems, which are listed below. These include atrial fibrillation for which she is on systemic anticoagulation therapy with Coumadin. During the course of the patient's treatment, the patient experienced a fall at home on April 29, 2024, in which she sustained a traumatic wound to her left knee and left elbow. She presented to the Emergency Department at [facility] shortly thereafter, where the left elbow wound was bandaged, and a skin flap of the left knee was secured over the wound using multiple Steri-Strips. It is also noted that a culture of the left lateral calf wound on April 16, 2024, was positive for Staphylococcus epidermidis, Corynebacterium amycolatum, Globacatella sulfidifaciens, and anaerobic cocci. As result, the patient was placed on oral linezolid and Flagyl, which was completed. 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 Hyperlipidemia Tear of biceps muscle Osteoarthrosis Diverticulitis Essential hypertension Nonrheumatic mitral valve regurgitation Pulmonary hypertension Diastolic congestive heart failure Longstanding persistent atrial fibrillation AV block, complete Home Medications ?Medication ?Instructions ?Recorded ?Last Taken ?Type docusate sodium 100 mg capsule 100 mg PO BID PRN constipation 06/03/21 12/16/23 History (Stool Softener) albuterol sulfate 90 mcg/actuation 2 puff inhalation Q6H PRN 03/22/22 Unknown History aerosol inhaler shortness of breath or wheezing Lactobacillus rhamnosus GG 5 1 tab PO DAILY PRN probiotic 02/20/23 Unknown Hist ory billion cell chewable tablet (Loyalzoo Probiotics) ondansetron 4 mg disintegrating 4 mg PO Q6H PRN PRN Nausea #10 tabs 08/17/23 12/16/23 Rx tablet ibandronate 150 mg tablet 150 mg PO QMONTH 01/07/24 Unknown History polyethylene glycol 3350 17 17 g PO DAILY PRN constipation 02/07/24 Unknown History gram/dose oral powder (Miralax) warfarin 1 mg tablet 1 mg PO .COMPLEX anticoagulation 02/07/24 Unknown History naloxegol 25 mg tablet (Movantik) 25 mg PO QAM PRN stomach upset 02/18/24 Unknown History losartan 100 mg tablet 100 mg PO DAILY #90 tabs 03/04/24 Unknown Rx calcitriol 0.25 mcg capsule 0.25 mcg PO DAILY see mar 04/07/24 Unknown History ergocalciferol (vitamin D2) 1,250 1,250 mcg PO QWEEK 04/07/24 Unknown History mcg (50,000 unit) capsule hydrocodone-acetaminophen 5-325mg 1 tab PO TID PRN Pain 04/07/24 Unknown History 5mg-325mg jpfrxmud-qug-lagoe acid 0.4 1 tab PO DAILY 04/07/24 Unknown History mg-lycopene 300 mcg-lutein 250 mcg tablet (Centrum Silver) carvedilol 12.5 mg tablet 12.5 mg PO BID htn #180 tabs 04/11/24 Unknown Rx furosemide 40 mg tablet 40 mg PO BID edema, shortness of 07/29/24 Unknown History breath spironolactone 25 mg tablet 25 mg PO QDAY #30 tabs 07/29/24 Unknown Rx Allergy/AdvReac Type Severity Reaction Status Date / Time Iodinated Contrast Media Allergy Rash Verified 07/23/24 13:29 (Iodinated Contrast- Oral and IV Dye) iodine Allergy Rash Verified 07/23/24 13:29 Penicillins (PCN) Allergy Rash Verified 07/23/24 13:29 ciprofloxacin (From Cipro) AdvReac Intermediate dizziness Verified 07/23/24 13:29 clindamycin AdvReac Intermediate nausea Verified 07/23/24 13:29 levofloxacin (From Levaquin) AdvReac Intermediate abdominal Verified 07/23/24 13:29 pain, nausea simvastatin AdvReac Intermediate Myalgias Verified 07/23/24 13:29 Family History Father , Age 82 CAD (coronary artery disease) Myocardial infarction CVA (cerebral vascular accident) Hypertension Mother , Age 94 Hypertension CVA (cerebral vascular accident) Sister Cancer Brother , Age 13 months from congenital heart defect Congenital heart defect Surgical History History of left heart catheterization (09/09/03) History of cardioversion (07/12/05) H/O colectomy History of bunionectomy History of appendectomy History of hysterectomy (1990) History of knee replacement (05/2018) History of tilt table evaluation (06/02/04) Hx of atrioventricular node ablation History of radiofrequency ablation procedure for cardiac arrhythmia Cardiac pacemaker in situ Social History household members: spouse Smoking Status: Never smoker alcohol intake: never substance use type: does not use caffeine: No Vital Signs Vital Signs Vital Signs: 07/29/24 14:06 Temperature 97 F L Temperature Source Temporal Pulse Rate 62 Respiratory Rate 18 Blood Pressure 158/65 H Blood Pressure Mean 96 Blood Pressure Source Monitor Blood Pressure Position Semi-Fowlers Blood Pressure Location Left Arm Weight Weight: 136 lb Body Mass Index (BMI) 24.8 Physical Exam Const alert, oriented x3, no apparent distress, average body habitus, no limitations and well nourished Constitutional Narrative: The patient's BMI is 24.9 General Appearance: cooperative, comfortable, well kempt and well developed Orientation / Consciousness: awake, oriented to person, oriented to place and oriented to time Exam Limitations: no limitations HEENT normocephalic and head/scalp atraumatic Head and Scalp: normal to inspection, normocephalic and atraumatic Face and Sinus: normal facial exam Nose: external nose normal External Ear: external ears normal Eyes EOMs intact bilaterally General Eye: normal appearance of both eyes Neck full ROM Resp normal respiratory effort, normal air movement, no retractions and no use of accessory muscles Effort and Inspection: able to speak in complete sentences Extremity General Extremity: normal exam except as noted Skin Wounds: wounds noted Wound Narrative: An open wound is noted on the distal left lateral calf. There is no obvious sign of infection or cellulitis. There is a small amount of bioburden and nonviable tissue. Dimensions are documented elsewhere. This wound has shown significant decrease in size recently, and is progressing well. The abrasion of the patient's left elbow remains completely healed and epithelialized. There is an avulsion injury on the left knee, which continues to improve, and is decreasing in size. Dimensions are documented elsewhere. There is a small amount of bioburden, but evidence of peripheral epithelialization and gr anulation tissue. There is no sign of infection or cellulitis. The right knee wound continues to diminish in size as well. Dimensions are documented elsewhere. There is no sign of infection or cellulitis. The right knee wound demonstrates evidence of peripheral epithelialization and active granulation tissue. The traumatic wound on the right forearm remains completely healed and epithelialized. The most recent traumatic wound is located on the patient's right lateral calf. Dimensions are documented elsewhere. There is no sign of infection or cellulitis. However, a large amount of eschar is noted, as well as bioburden. Hair: normal Neuro oriented x3, CN's II-XII intact bilaterally, moves all extremities, no focal motor deficits and no sensory deficits noted Sensorium / Orientation: awake, alert, oriented to person, oriented to place and oriented to time Psych Appearance: grossly normal Speech: normal speech Thought Content: normal thought content Judgement: judgement good Debridement Note Debridement Note Wound debrided: Right lateral calf wound Laterality: Right Type of Debridement: Excisional debridement Anesthesia Used: 5% Lidocaine Gel and Cetacaine Depth: Down to and including healthy tissue and in the subcutaneous layer Percentage of wound debrided: 100 Instrument Used: 5mm curette Tissue Removed: Nonviable tissue, bioburden, and eschar Severity: Fat Layer Exposed Amount of bleeding with debridement: Mild Bleeding Controlled with: Compression and gauze Patient tolerated procedure: Patient did not tolerate procedure well Debridement Free Text: The debridement of the patient's right lateral calf wound was not well-tolerated. A large amount of eschar was noted. An effort was made to remove as much as possible. However, despite the use of lidocaine gel and Cetacaine spray, the patient did not tolerate excisional debridement well. 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 ) Arrival Mode Ambulatory,Cane Transfer Assistance Manual Patient Identification Verified (Name & Yes ) Patient Requires Transmission-Based No Precautions Height and Weight Body Mass Index (BMI) 24.8 BMI Classification Normal Vital Signs Temperature (97.8 F-99.1 F) 97 F L Temperature Source Temporal Pulse Rate (60-100) 62 Pulse Location Monitor Respiratory Rate (12-18) 18 Respiratory rate source Observation Blood Pressure (90/60-120/80) 158/65 H Blood Pressure Mean 96 Source Monitor Position Semi-Fowlers Blood Pressure Location Left Arm History Since Last Visit- (Skip if this is Patient's initial visit) Have you changed medications since your No last visit? Any new allergies or adverse reactions No Had a fall/change in ADL's that may No increase risk of falls Signs or symptoms of abuse and/or No neglect since last visit Have you been in the hospital since your No last visit? Has dressing in place as prescribed Yes Has compression in place as prescribed No Has offloadiing in place as prescribed No Experienced any changes in pain level or No management Pain Scale: 0-10 Numeric Is Patient Pain Free? No BILAT LE -Description Aching -Intensity 8 -Duration (hours) Acute -Pain Behavior Withdrawal from Touch -Pain Aggravating Factors Exercise/ Activity, Walking, Debridement -Alleviating Factors/Interventions Medication -Effectiveness of Alleviating Factor/ Minimally Intervention effective WC - Nurse 1 - General Ulcer Measurement Start: 07/29/24 14:06 Freq: Status: Active Protocol: Activity Type Activity Date Activity User E-sign Co-sign Detail Recorded Client Recorded Date Recorded By Document 07/29/24 14:06 RB [id number] 07/29/24 14:12 RB 07/29/24 14:06 Wound Center Nurse 1 #8 Right Lateral Calf -Combined with other wound No -Current Size (cm) - Length 4.5 -Current Size (cm) - Width 3 -Current Size (cm) - Depth 0.1 -Total Square Cm 13.5 -Photo Taken Yes -Tunneling No -Undermining/Tunneling No -Circular Undermining No -Exudate Amt Medium -Exudate Type Serosanguineous -Wound Margin Distinct, Outline Attached -Granulation Amt Small (1-33%) -Granulation Quality Red -Slough/Fibrin Yes -Necrosis Amt Large (67-100%) -Necrotic Tissue Type Eschar -Structure Exposed N/A -Texture (Nhung-wound Skin Appearance) Scarring -Moisture (Nhung-wound Skin Appearance) Assessed -Color (Nhung-wound Skin Appearance) Assessed -Temperature (Nhung-wound Skin No Abnormality Appearance) (Pt Warm) -Tenderness on Palpation (Nhung-wound No Skin Appearance) -Ulcer Cleansing Wound Cleanser -Foul Odor after Cleansing No -Anesthetic Used 5% Lidocaine Gel 6-LEFT LOWER LEG -Combined with other wound No -Current Size (cm) - Length 2.3 -Current Size (cm) - Width 1.5 -Current Size (cm) - Depth 0.1 -Total Square Cm 3.45 -Photo Taken Yes -Tunneling No -Undermining/Tunneling No -Circular Undermining No -Exudate Amt Large -Exudate Type Serosanguineous -Wound Margin Distinct, Outline Attached -Granulation Amt Medium (34-66%) -Granulation Quality Red -Slough/Fibrin Yes -Necrosis Amt Medium (34-66%) -Necrotic Tissue Type Adherent Slough -Structure Exposed N/A -Texture (Nhung-wound Skin Appearance) Assessed, Scarring -Moisture (Nhung-wound Skin Appearance) Assessed -Color (Nhung-wound Skin Appearance) Assessed -Temperature (Nhung-wound Skin No Abnormality Appearance) (Pt Warm) -Tenderness on Palpation (Nhung-wound No Skin Appearance) -Ulcer Cleansing Wound Cleanser -Foul Odor after Cleansing No -Anesthetic Used 5% Lidocaine Gel #4 right knee cluster -Combined with other wound No -Current Size (cm) - Length 0.1 -Current Size (cm) - Width 0.1 -Current Size (cm) - Depth 0.1 -Total Square Cm 0.01 -Photo Taken Yes -Tunneling No -Undermining/Tunneling No -Circular Undermining No -Exudate Amt None Present -Wound Margin Distinct, Outline Attached -Granulation Amt Large (67-100%) -Granulation Quality [place] -Slough/Fibrin Yes -Necrosis Amt Small (1-33%) -Necrotic Tissue Type Adherent Slough -Structure Exposed N/A -Texture (Nhung-wound Skin Appearance) Assessed, Scarring -Moisture (Nhung-wound Skin Appearance) Assessed -Color (Nhung-wound Skin Appearance) Assessed -Temperature (Nhung-wound Skin No Abnormality Appearance) (Pt Warm) -Tenderness on Palpation (Hnung-wound No Skin Appearance) -Ulcer Cleansing Wound Cleanser -Foul Odor after Cleansing No -Anesthetic Used 5% Lidocaine Gel #3- L KNEE SKIN TEAR POST FALL -Combined with other wound No -Current Size (cm) - Length 0.1 -Current Size (cm) - Width 0.1 -Current Size (cm) - Depth 0.1 -Total Square Cm 0.01 -Photo Taken Yes -Tunneling No -Undermining/Tunneling No -Circular Undermining No -Exudate Amt None Present -Wound Margin Distinct, Outline Attached -Granulation Amt Medium (34-66%) -Granulation Quality [place] -Slough/Fibrin Yes -Necrosis Amt Small (1-33%) -Necrotic Tissue Type Adherent Slough -Structure Exposed N/A -Texture (Nhung-wound Skin Appearance) Assessed, Scarring -Moisture (Nhung-wound Skin Appearance) Assessed -Color (Nhung-wound Skin Appearance) Assessed -Temperature (Nhung-wound Skin No Abnormality Appearance) (Pt Warm) -Tenderness on Palpation (Nhung-wound No Skin Appearance) -Ulcer Cleansing Wound Cleanser -Foul Odor after Cleansing No -Anesthetic Used 5% Lidocaine Gel WC - Nurse 2 - General Ulcer CM Notes Start: 07/29/24 14:06 Freq: Status: Active Protocol: Activity Type Activity Date Activity User E-sign Co-sign Detail Recorded Client Recorded Date Recorded By Document 07/29/24 14:21 DS [id number] 07/29/24 14:35 DS 07/29/24 14:21 Wound Center Nurse 2 #8 Right Lateral Calf -Time 14:21 -Correct Patient Yes -Correct Side, Site, Position Yes -Correct Procedure Yes -Procedure Performed Yes -Type of Procedure Debridement -Clinical Debridement Subcutaneous -Tissue Removed Subcutaneous -Post Debridement (cm) - Length 4.5 -Post Debridement (cm) - Width 3.7 -Post Debridement (cm) - Depth 0.1 -Total Square (Post) (cm) 16.65 -Area of Debridement (cm) - Length 4.5 -Area of Debridement (cm) - Width 3.7 -Total Square (Area) (cm) 16.65 -Tunneling No -Undermining/Tunneling No -Circular Undermining No -Wound/Ulcer Outcome Not Healed -Ulcer Cleansing Rinsed/ Irrigated with Saline -Bioengineered Tissue No -Bleeding Controlled with Pressure -Treatment Response Procedure Tolerated Well -Debridement - Subq, 1st 20sq cm Yes -Debridement, SubQ, ea addt'l 20sq cm 1 or part thereof 6-LEFT LOWER LEG -Time 14:21 -Correct Patient Yes -Correct Side, Site, Position Yes -Correct Procedure Yes -Procedure Performed Yes -Type of Procedure Debridement -Clinical Debridement Subcutaneous -Tissue Removed Subcutaneous -Post Debridement (cm) - Length 3.5 -Post Debridement (cm) - Width 1.5 -Post Debridement (cm) - Depth 1.0 -Total Square (Post) (cm) 5.25 -Area of Debridement (cm) - Length 3.5 -Area of Debridement (cm) - Width 1.5 -Total Square (Area) (cm) 5.25 -Tunneling No -Undermining/Tunneling No -Circular Undermining No -Wound/Ulcer Outcome Not Healed -Bleeding Controlled with Pressure,Silver Nitrate -Treatment Response Procedure Not Tolerated Well -Debridement - Subq, 1st 20sq cm No #4 right knee cluster -Time 14:21 -Correct Patient Yes -Correct Side, Site, Position Yes -Correct Procedure Yes -Procedure Performed Yes -Type of Procedure Debridement -Clinical Debridement Subcutaneous -Tissue Removed Subcutaneous -Post Debridement (cm) - Length 1.0 -Post Debridement (cm) - Width 1.0 -Post Debridement (cm) - Depth 0.1 -Total Square (Post) (cm) 1.00 -Area of Debridement (cm) - Length 1.0 -Area of Debridement (cm) - Width 1.0 -Total Square (Area) (cm) 1.00 -Tunneling No -Undermining/Tunneling No -Circular Undermining No -Wound/Ulcer Outcome Not Healed -Ulcer Cleansing Rinsed/ Irrigated with Saline -Bioengineered Tissue No -Bleeding Controlled with Pressure -Treatment Response Procedure Not Tolerated Well -Debridement - Subq, 1st 20sq cm No #3- L KNEE SKIN TEAR POST FALL -Time 14:21 -Correct Patient Yes -Correct Side, Site, Position Yes -Correct Procedure Yes -Procedure Performed Yes -Type of Procedure Debridement -Clinical Debridement Subcutaneous -Tissue Removed Subcutaneous -Post Debridement (cm) - Length 1.6 -Post Debridement (cm) - Width 1 -Post Debridement (cm) - Depth 0.1 -Total Square (Post) (cm) 1.6 -Area of Debridement (cm) - Length 1.6 -Area of Debridement (cm) - Width 1.0 -Total Square (Area) (cm) 1.60 -Tunneling No -Undermining/Tunneling No -Circular Undermining No -Wound/Ulcer Outcome Not Healed -Ulcer Cleansing Rinsed/ Irrigated with Saline -Bioengineered Tissue No -Bleeding Controlled with Pressure -Treatment Response Procedure Tolerated Well -Debridement - Subq, 1st 20sq cm No Pain Scale: 0-10 Numeric Is Patient Pain Free? No BILAT LE -Description Sharp,Throbbing ,Aching -Intensity 8 -Duration (hours) Chronic -Pain Behavior Crying, Irritability -Pain Aggravating Factors Debridement -Alleviating Factors/Interventions Will continue to monitor, Emotional Support -Comments cetacaine spray left knee -Comments cetecaine spray WC - Nurse 3 - General Ulcer D/C NN Start: 07/29/24 14:06 Freq: Status: Active Protocol: Activity Type Activity Date Activity User E-sign Co-sign Detail Recorded Client Recorded Date Recorded By Document 07/29/24 14:40 KW [id number] 07/29/24 14:41 KW 07/29/24 14:40 Wound Care Center Nurse 3 #8 Right Lateral Calf -Primary Dressing Applied NonAdherent Contact Layer -Primary Dressing Covered/Secured with Dry Gauze & Roll Gauze, Secured with Tape 6-LEFT LOWER LEG -Primary Dressing Covered/Secured with Dry Gauze #4 right knee cluster -Primary Dressing Applied NonAdherent Contact Layer -Primary Dressing Covered/Secured with Dry Gauze #3- L KNEE SKIN TEAR POST FALL -Primary Dressing Applied NonAdherent Contact Layer -Primary Dressing Covered/Secured with Dry Gauze & Roll Gauze, Secured with Tape Right -Tubular Bandage Single Layer -Size of Tubigrip Used Size E -Size E ($) 1 Left -Tubular Bandage Single Layer -Size of Tubigrip Used Size E -Size E ($) 1 Pain Scale: 0-10 Numeric Is Patient Pain Free? Yes Additional Wound Wound debrided: Right knee wound Laterality: Right Type of Debridement: Excisional debridement Anesthesia Used: 5% Lidocaine Gel and Cetacaine Depth: Down to and including healthy tissue and in the subcutaneous layer Percentage of wound debrided: 100 Instrument Used: 5mm curette Tissue Removed: Bioburden Severity: Fat Layer Exposed Amount of bleeding with debridement: Mild Bleeding Controlled with: Compression and gauze Patient tolerated procedure: Patient tolerated procedure well Additional Wound Wound debrided: Left knee wound Laterality: Left Type of Debridement: Excisional debridement Anesthesia Used: 5% Lidocaine Gel and Cetacaine Depth: in the subcutaneous layer Percentage of wound debrided: 100 Instrument Used: 5mm curette Tissue Removed: Bioburden Severity: Fat Layer Exposed Bleeding Controlled with: Compression and gauze Patient tolerated procedure: Patient tolerated procedure well Additional Wound Wound debrided: Left lateral calf wound Laterality: Left Type of Debridement: Excisional debridement Anesthesia Used: 5% Lidocaine Gel and Cetacaine Depth: in the subcutaneous layer Percentage of wound debrided: 100 Instrument Used: 5mm curette Tissue Removed: Bioburden Severity: Fat Layer Exposed Amount of bleeding with debridement: Mild Bleeding Controlled with: Compression and gauze Patient tolerated procedure: Patient tolerated procedure well Charges/Coding Multi Select Codes Integumentary Integumentary CPT Codes: 87707 Pili subq tissue 20 sq cm/< (67422 - Right Leg; 57872 - Left Leg) Assessment/Plan Assessment/Plan (1) Non-pressure chronic ulcer of right 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: CODE(S): L97.912 - Non-pressure chronic ulcer of unspecified part of right 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 (2) Non-pressure chronic ulcer of left 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: CODE(S): L97.922 - Non-pressure chronic ulcer of unspecified part of left 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 (3) Non-pressure 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 layer exposed: CODE(S): L97.222 - Non-pressure 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 layer exposed (4) Traumatic open wound of left lower leg: CODE(S): S81.802A - Unspecified open wound, left lower leg, initial encounter QUALIFIERS: Encounter type: subsequent encounter Qualified Code(s): S81.802D - Unspecified open wound, left lower leg, subsequent encounter (5) Open wound of knee: CODE(S): S81.009A - Unspecified open wound, unspecified knee, initial encounter QUALIFIERS: Encounter type: subsequent encounter Laterality: left Qualified Code(s): S81.002D - Unspecified open wound, left knee, subsequent encounter (6) Open wound of knee: CODE(S): S81.009A - Unspecified open wound, unspecified knee, initial encounter QUALIFIERS: Encounter type: subsequent encounter Laterality: right Qualified Code(s): S81.001D - Unspecified open wound, right knee, subsequent encounter (7) Current use of senior living anticoagulation: CODE(S): Z79.01 - detention (current) use of anticoagulants (8) Hammer toe of right foot: CODE(S): M20.41 - Other hammer toe(s) (acquired), right foot (9) Venous (peripheral) insufficiency: CODE(S): I87.2 - Venous insufficiency (chronic) (peripheral) (10) Atrial fibrillation: CODE(S): I48.91 - Unspecified atrial fibrillation QUALIFIERS: Atrial fibrillation type: permanent Qualified Code(s): I48.21 - Permanent atrial fibrillation (11) Shortness of breath: CODE(S): R06.02 - Shortness of breath (12) CAD (coronary artery disease): CODE(S): I25.10 - Atherosclerotic heart disease of [place] coronary artery without angina pectoris QUALIFIERS: Coronary Disease-Associated Artery/Lesion type: [place] artery [place] vs. transplanted heart: [place] heart Associated angina: without angina Qualified Code(s): I25.10 - Atherosclerotic heart disease of [place] coronary artery without angina pectoris (13) Essential hypertension: CODE(S): I10 - Essential (primary) hypertension (14) Cardiac pacemaker in situ: CODE(S): Z95.0 - Presence of cardiac pacemaker (15) AV block, complete: CODE(S): I44.2 - Atrioventricular block, complete (16) History of radiofrequency ablation procedure for cardiac arrhythmia: CODE(S): Z98.890 - Other specified postprocedural states (17) Hx of atrioventricular node ablation: CODE(S): Z98.890 - Other specified postprocedural states (18) Diastolic congestive heart failure: CODE(S): I50.30 - Unspecified diastolic (congestive) heart failure QUALIFIERS: Heart failure chronicity: chronic Qualified Code(s): I50.32 - Chronic diastolic (congestive) heart failure (19) Pulmonary hypertension: CODE(S): I27.20 - Pulmonary hypertension, unspecified (20) Nonrheumatic mitral valve regurgitation: CODE(S): I34.0 - Nonrheumatic mitral (valve) insufficiency (21) Hyperlipidemia: CODE(S): E78.5 - Hyperlipidemia, unspecified QUALIFIERS: Hyperlipidemia type: unspecified Qualified Code(s): E78.5 - Hyperlipidemia, unspecified (22) GERD (gastroesophageal reflux disease): CODE(S): K21.9 - Gastro-esophageal reflux disease without esophagitis (23) Chronic anemia: CODE(S): D64.9 - Anemia, unspecified (24) Osteoarthritis of both knees: CODE(S): M17.0 - Bilateral primary osteoarthritis of knee PLAN: Plan This is an 84-year-old female who has been recently prone to falls and injuries. She injured her left lateral calf on April 04, 2024, and has been recently managed in this regard at our facility. The patient has demonstrated good progress, but has returned to several scheduled visits with additional traumatic wounds to her extremities. In fact, the patient has developed another open traumatic wound on her right lateral calf recently. Several of her traumatic wounds have healed, though we continue to treat wounds on both calves and both knees. The patient's wounds, in general, appear to be progressing well, without signs of infection or cellulitis. The patient did not tolerate debridement of the right lateral calf wound today. The patient's level of discomfort created some limitations in the amount of debridement which was performed at that site today. The other wounds were debrided without limitation. We are to continue the use of collagen hydrogel topically to the patient's wounds on a daily basis. The patient has been instructed in the appropriate means of application. Adaptic is to be placed over the wounds following administration of the collagen hydrogel. The patient uses a narcotic analgesic at home for her arthritis, which can be expected to assist in pain control relative to her wounds. The patient continues to use compression to her lower extremities by means of Tubigrip's. The patient has been encouraged to maintain optimal nutritional intake, and has been using Shekhar as a supplement. She remains on systemic anticoagulation with warfarin, which is monitored and regulated by the outpatient clinic at [facility]. The patient is to follow-up in 1 week for reevaluation. Total time: 25 minutes
[2024-08-05 13:26] VITALS: RESP 18; TEMP 36.4; BMI 24.8
[2024-08-05 14:04] VITALS: BP 146/56; PULSE 64; RESP 20; O2SAT 97; BMI 24.8
--- NOTE | 2024-08-06 20:31 | PCM.WC.HP ---
History of Present Illness Date of Service: 08/05/24 Chief Complaint: Traumatic wound of the left lateral calf, left knee, right knee, and right lateral calf History of Wound: This is an 84-year-old female who had [facility] to a traumatic wound on the left lateral calf. The wound occurred as a result of an impact with an open car door. The wound occurred on April 04, 2024, and the patient was initially seen and evaluated in the emergency department at [facility] in [place], [place]. She was treated with a prescription for cephalexin 500 mg p.o. twice daily for total of 10 days, which was completed. She subsequently presented for evaluation and management at the [facility], where initial treatment included the use of Aquacel topically, and Tubigrips. The patient has multiple pre-existing medical problems, which are listed below. These include atrial fibrillation for which she is on systemic anticoagulation therapy with Coumadin. During the course of the patient's treatment, the patient experienced a fall at home on April 29, 2024, in which she sustained a traumatic wound to her left knee and left elbow. She presented to the Emergency Department at [facility] shortly thereafter, where the left elbow wound was bandaged, and a skin flap of the left knee was secured over the wound using multiple Steri-Strips. It is also noted that a culture of the left lateral calf wound on April 16, 2024, was positive for Staphylococcus epidermidis, Corynebacterium amycolatum, Globacatella sulfidifaciens, and anaerobic cocci. As result, the patient was placed on oral linezolid and Flagyl, which was completed. 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 Hyperlipidemia Tear of biceps muscle Osteoarthrosis Diverticulitis Essential hypertension Nonrheumatic mitral valve regurgitation Pulmonary hypertension Diastolic congestive heart failure Longstanding persistent atrial fibrillation AV block, complete Home Medications ?Medication ?Instructions ?Recorded ?Last Taken ?Type docusate sodium 100 mg capsule 100 mg PO BID PRN constipation 06/03/21 12/16/23 History (Stool Softener) Lactobacillus rhamnosus GG 5 1 tab PO DAILY PRN probiotic 02/20/23 Unknown History billion cell chewable tablet (I[employer]Systems Probiotics) ondansetron 4 mg disintegrating 4 mg PO Q6H PRN PRN Nausea #10 tabs 08/17/23 12/16/23 Rx tablet ibandronate 150 mg tablet 150 mg PO QMONTH 01/07/24 Unknown History polyethylene glycol 3350 17 17 g PO DAILY PRN constipation 02/07/24 Unknown History gram/dose oral powder (Miralax) warfarin 1 mg tablet 1 mg PO .COMPLEX anticoagulation 02/07/24 Unknown History naloxegol 25 mg tablet (Movantik) 25 mg PO QAM PRN stomach upset 02/18/24 Unknown History losartan 100 mg tablet 100 mg PO DAILY #90 tabs 03/04/24 Unknown Rx calcitriol 0.25 mcg capsule 0.25 mcg PO DAILY see mar 04/07/24 Unknown History ergocalciferol (vitamin D2) 1,250 1,250 mcg PO QWEEK 04/07/24 Unknown History mcg (50,000 unit) capsule hydrocodone-acetaminophen 5-325mg 1 tab PO TID PRN Pain 04/07/24 Unknown History 5mg-325mg kcussitm-uga-sxzor acid 0.4 1 tab PO DAILY 04/07/24 Unknown History mg-lycopene 300 mcg-lutein 250 mcg tablet (Centrum Silver) carvedilol 12.5 mg tablet 12.5 mg PO BID htn #180 tabs 04/11/24 Unknown Rx furosemide 40 mg tablet 40 mg PO BID edema, shortness of 07/29/24 Unknown History breath spironolactone 25 mg tablet 25 mg PO QDAY #30 tabs 07/29/24 Unknown Rx Allergy/AdvReac Type Severity Reaction Status Date / Time Iodinated Contrast Media Allergy Rash Verified 08/01/24 10:12 (Iodinated Contrast- Oral and IV Dye) iodine Allergy Rash Verified 08/01/24 10:12 Penicillins (PCN) Allergy Rash Verified 08/01/24 10:12 ciprofloxacin (From Cipro) AdvReac Intermediate dizziness Verified 08/01/24 10:12 clindamycin AdvReac Intermediate nausea Verified 08/01/24 10:12 levofloxacin (From Levaquin) AdvReac Intermediate abdominal Verified 08/01/24 10:12 pain, nausea simvastatin AdvReac Intermediate Myalgias Verified 08/01/24 10:12 Family History Father , Age 82 CAD (coronary artery disease) Myocardial infarction CVA (cerebral vascular accident) Hypertension Mother , Age 94 Hypertension CVA (cerebral vascular accident) Sister Cancer Brother , Age 13 months from congenital heart defect Congenital heart defect Surgical History History of left heart catheterization (09/09/03) History of cardioversion (07/12/05) H/O colectomy History of bunionectomy History of appendectomy History of hysterectomy (1990) History of knee replacement (05/2018) History of tilt table evaluation (06/02/04) Hx of atrioventricular node ablation History of radiofrequency ablation procedure for cardiac arrhythmia Cardiac pacemaker in situ Social History household members: spouse Smoking Status: Never smoker alcohol intake: never substance use type: does not use caffeine: No Vital Signs Vital Signs Vital Signs: Weight Weight: 136 lb Body Mass Index (BMI) 24.8 Physical Exam Const alert, oriented x3, no apparent distress, average body habitus, no limitations and well nourished Constitutional Narrative: The patient's BMI is 24.9. At the time of the patient's initial intake, she appeared calm and with normal demeanor. However, during the course of her Nurse 1 assessment, she appeared to become very apprehensive and anxious. General Appearance: cooperative, comfortable, well kempt and well developed Orientation / Consciousness: awake, oriented to person, oriented to place and oriented to time Exam Limitations: no limitations HEENT normocephalic and head/scalp atraumatic Head and Scalp: normal to inspection, normocephalic and atraumatic Face and Sinus: normal facial exam Nose: external nose normal External Ear: external ears normal Eyes EOMs intact bilaterally General Eye: normal appearance of both eyes Neck full ROM Resp normal respiratory effort, normal air movement, no retractions and no use of accessory muscles Effort and Inspection: able to speak in complete sentences Extremity General Extremity: normal exam except as noted Skin Wounds: wounds noted Wound Narrative: An open wound is noted on the distal left lateral calf. There is no obvious sign of infection or cellulitis. There is a small amount of bioburden and nonviable tissue. Dimensions are documented elsewhere. This wound has shown significant decrease in size recently, and is progressing well. The abrasion of the patient's left elbow remains completely healed and epithelialized. There is an avulsion injury on the left knee, which continues to improve, and is decreasing in size. Dimensions are documented elsewhere. There is a small amount of bioburden, but evidence of peripheral epithelialization and granulation tissue. There is no sign of infection or cellulitis. The right knee wound continues to diminish in size as well. Dimensions are documented elsewhere. There is no sign of infection or cellulitis. The right knee wound demonstrates evidence of peripheral epithelialization and active granulation tissue. The traumatic wound on the right forearm remains completely healed and epithelialized. The most recent traumatic wound is located on the patient's right lateral calf. Dimensions are documented elsewhere. There is no sign of infection or cellulitis. However, a large amount of eschar is noted, as well as bioburden. Hair: normal Neuro oriented x3, CN's II-XII intact bilaterally, moves all extremities, no focal motor deficits and no sensory deficits noted Sensorium / Orientation: awake, alert, oriented to person, oriented to place and oriented to time Psych Appearance: grossly normal Speech: normal speech Thought Content: normal thought content Judgement: judgement good Debridement Note Debridement Note No debridement was completed: No debridement was completed today Post-Debridement Measurements and Additional Note: Post-Debridement Measurements/Treatment PAULETTE - Nurse 1 - General Ulcer Assessment Start: 07/29/24 14:06 Freq: Status: Active Protocol: JAVAN Activity Type Activity Date Activity User E-sign Co-sign Detail Recorded Client Recorded Date Recorded By Document 07/29/24 14:06 RB [id number] 07/29/24 14:12 RB Document 08/05/24 13:26 KW [id number] 08/05/24 13:50 KW Document 08/05/24 14:04 DS [id number] 08/05/24 14:22 DS 07/29/24 08/05/24 08/05/24 14:06 13:26 14:04 WC - Today's Visit Information Type of service Follow-up Visit Follow-up Visit (Physician/HIGHER LEVEL TEACHING ASSISTANT (Physician/HIGHER LEVEL TEACHING ASSISTANT ) ) Arrival Mode Ambulatory,Cane Ambulatory,Cane Transfer Assistance Manual Accompanied by Patient Identification Verified (Name & Yes Yes ) Patient Requires Transmission-Based No Precautions Height and Weight Body Mass Index (BMI) 24.8 24.8 24.8 BMI Classification Normal Normal Normal Vital Signs Temperature (97.8 F-99.1 F) 97 F L 97.6 F L Temperature Source Temporal Temporal Pulse Rate (60-100) 62 64 Pulse Location Monitor Monitor Monitor Respiratory Rate (12-18) 18 18 20 H Respiratory rate source Observation Observation Observation Pulse Oximetry 97 Oxygen Delivery Method Room Air Room Air Blood Pressure (90/60-120/80) 158/65 H 146/56 H Blood Pressure Mean 96 86 Source Monitor Monitor Monitor Position Semi-Fowlers Semi-Fowlers Sitting Blood Pressure Location Left Arm Left Arm Right Arm History Since Last Visit- (Skip if this is Patient's initial visit) Have you changed medications since your No No last visit? Any new allergies or adverse reactions No No Had a fall/change in ADL's that may No No increase risk of falls Signs or symptoms of abuse and/or No No neglect since last visit Have you been in the hospital since your No No last visit? Has dressing in place as prescribed Yes Yes Has compression in place as prescribed No Yes Has offloadiing in place as prescribed No N/A Experienced any changes in pain level or No No management Left Footwear Regular Shoe Right Footwear Regular Shoe Pain Scale: 0-10 Numeric Is Patient Pain Free? No No No BILAT LE -Description Aching Sharp,Aching -Intensity 8 10 8 -Duration (hours) Acute Chronic -Pain Behavior Withdrawal from Crying, Touch Irritability, Facial Grimacing -Pain Aggravating Factors Exercise/ Activity, Walking, Debridement -Alleviating Factors/Interventions Medication Medication Will continue to monitor, Emotional Support -Effectiveness of Alleviating Factor/ Minimally Intervention effective -Comments feels pulling from dressing WC - Nurse 1 - General Ulcer Measurement Start: 07/29/24 14:06 Freq: Status: Active Protocol: Activity Type Activity Date Activity User E-sign Co-sign Detail Recorded Client Recorded Date Recorded By Document 07/29/24 14:06 RB [id number] 07/29/24 14:12 RB Document 08/05/24 13:26 KW [id number] 08/05/24 13:50 KW 07/29/24 08/05/24 14:06 13:26 Wound Center Nurse 1 #8 Right Lateral Calf -Combined with other wound No -Current Size (cm) - Length 4.5 0.1 -Current Size (cm) - Width 3 0.1 -Current Size (cm) - Depth 0.1 0.1 -Total Square Cm 13.5 0.01 -Photo Taken Yes -Tunneling No -Undermining/Tunneling No -Circular Undermining No -Exudate Amt Medium Small -Exudate Type Serosanguineous Serosanguineous -Wound Margin Distinct, Distinct, Outline Outline Attached Attached -Granulation Amt Small (1-33%) Small (1-33%) -Granulation Quality Red [place] -Slough/Fibrin Yes -Necrosis Amt Large (67-100%) Large (67-100%) -Necrotic Tissue Type Eschar Adherent Slough -Structure Exposed N/A -Texture (Nhung-wound Skin Appearance) Scarring Assessed -Moisture (Nhung-wound Skin Appearance) Assessed Assessed -Color (Nhung-wound Skin Appearance) Assessed Assessed, Erythema -Temperature (Nhung-wound Skin No Abnormality No Abnormality Appearance) (Pt Warm) (Pt Warm) -Tenderness on Palpation (Nhung-wound No No Skin Appearance) -Ulcer Cleansing Wound Cleanser Soap and Water -Foul Odor after Cleansing No No -Anesthetic Used 5% Lidocaine 4% Lidocaine Gel Solution,5% Lidocaine Gel, Cetacaine 6-LEFT LOWER LEG -Combined with other wound No -Current Size (cm) - Length 2.3 0.1 -Current Size (cm) - Width 1.5 0.1 -Current Size (cm) - Depth 0.1 0.1 -Total Square Cm 3.45 0.01 -Photo Taken Yes -Tunneling No -Undermining/Tunneling No -Circular Undermining No -Exudate Amt Large Small -Exudate Type Serosanguineous Serosanguineous -Wound Margin Distinct, Distinct, Outline Outline Attached Attached -Granulation Amt Medium (34-66%) Small (1-33%) -Granulation Quality Red Red -Slough/Fibrin Yes -Necrosis Amt Medium (34-66%) Large (67-100%) -Necrotic Tissue Type Adherent Slough Adherent Slough -Structure Exposed N/A -Texture (Nhung-wound Skin Appearance) Assessed, Assessed Scarring -Moisture (Nhung-wound Skin Appearance) Assessed Assessed -Color (Nhung-wound Skin Appearance) Assessed Assessed, Erythema -Temperature (Nhung-wound Skin No Abnormality No Abnormality Appearance) (Pt Warm) (Pt Warm) -Tenderness on Palpation (Nhung-wound No No Skin Appearance) -Ulcer Cleansing Wound Cleanser Soap and Water -Foul Odor after Cleansing No No -Anesthetic Used 5% Lidocaine 4% Lidocaine Gel Solution,5% Lidocaine Gel, Cetacaine #4 right knee cluster -Combined with other wound No -Current Size (cm) - Length 0.1 0.1 -Current Size (cm) - Width 0.1 0.1 -Current Size (cm) - Depth 0.1 0.1 -Total Square Cm 0.01 0.01 -Photo Taken Yes -Tunneling No -Undermining/Tunneling No -Circular Undermining No -Exudate Amt None Present Small -Exudate Type Serosanguineous -Wound Margin Distinct, Distinct, Outline Outline Attached Attached -Granulation Amt Large (67-100%) Small (1-33%) -Granulation Quality [place] Red -Slough/Fibrin Yes -Necrosis Amt Small (1-33%) Large (67-100%) -Necrotic Tissue Type Adherent Slough Adherent Slough -Structure Exposed N/A -Texture (Nhung-wound Skin Appearance) Assessed, Assessed Scarring -Moisture (Nhung-wound Skin Appearance) Assessed Assessed -Color (Nhung-wound Skin Appearance) Assessed Assessed, Erythema -Temperature (Nhung-wound Skin No Abnormality No Abnormality Appearance) (Pt Warm) (Pt Warm) -Tenderness on Palpation (Nhung-wound No No Skin Appearance) -Ulcer Cleansing Wound Cleanser Soap and Water -Foul Odor after Cleansing No No -Anesthetic Used 5% Lidocaine 4% Lidocaine Gel Solution,5% Lidocaine Gel, Cetacaine #3- L KNEE SKIN TEAR POST FALL -Combined with other wound No -Current Size (cm) - Length 0.1 -Current Size (cm) - Width 0.1 -Current Size (cm) - Depth 0.1 -Total Square Cm 0.01 -Photo Taken Yes -Tunneling No -Undermining/Tunneling No -Circular Undermining No -Exudate Amt None Present Small -Exudate Type Serosanguineous -Wound Margin Distinct, Distinct, Outline Outline Attached Attached -Granulation Amt Medium (34-66%) Small (1-33%) -Granulation Quality [place] Red -Slough/Fibrin Yes -Necrosis Amt Small (1-33%) Large (67-100%) -Necrotic Tissue Type Adherent Slough Adherent Slough -Structure Exposed N/A -Texture (Nhung-wound Skin Appearance) Assessed, Assessed Scarring -Moisture (Nhung-wound Skin Appearance) Assessed Assessed -Color (Nhung-wound Skin Appearance) Assessed Assessed, Erythema -Temperature (Nhung-wound Skin No Abnormality No Abnormality Appearance) (Pt Warm) (Pt Warm) -Tenderness on Palpation (Nhung-wound No No Skin Appearance) -Ulcer Cleansing Wound Cleanser Soap and Water -Foul Odor after Cleansing No No -Anesthetic Used 5% Lidocaine 4% Lidocaine Gel Solution,5% Lidocaine Gel, Cetacaine WC - Nurse 2 - General Ulcer CM Notes Start: 07/29/24 14:06 Freq: Status: Active Protocol: Activity Type Activity Date Activity User E-sign Co-sign Detail Recorded Client Recorded Date Recorded By Document 07/29/24 14:21 DS [id number] 07/29/24 14:35 DS Document 08/05/24 14:00 DS [id number] 08/05/24 16:16 DS 07/29/24 08/05/24 14:21 14:00 Wound Center Nurse 2 #8 Right Lateral Calf -Time 14:21 14:00 -Correct Patient Yes -Correct Side, Site, Position Yes -Correct Procedure Yes -Procedure Performed Yes No -Type of Procedure Debridement -Clinical Debridement Subcutaneous -Tissue Removed Subcutaneous -Post Debridement (cm) - Length 4.5 4.5 -Post Debridement (cm) - Width 3.7 3.5 -Post Debridement (cm) - Depth 0.1 0.1 -Total Square (Post) (cm) 16.65 15.75 -Area of Debridement (cm) - Length 4.5 4.5 -Area of Debridement (cm) - Width 3.7 3.5 -Total Square (Area) (cm) 16.65 15.75 -Tunneling No No -Undermining/Tunneling No No -Circular Undermining No No -Wound/Ulcer Outcome Not Healed Not Healed -Ulcer Cleansing Rinsed/ Irrigated with Saline -Bioengineered Tissue No -Bleeding Controlled with Pressure -Treatment Response Procedure Tolerated Well -Debridement - Subq, 1st 20sq cm Yes -Debridement, SubQ, ea addt'l 20sq cm 1 or part thereof 6-LEFT LOWER LEG -Time 14:00 -Correct Patient Yes -Correct Side, Site, Position Yes -Correct Procedure Yes -Procedure Performed Yes No -Type of Procedure Debridement -Clinical Debridement Subcutaneous -Tissue Removed Subcutaneous -Post Debridement (cm) - Length 3.5 2.5 -Post Debridement (cm) - Width 1.5 2.0 -Post Debridement (cm) - Depth 1.0 0.2 -Total Square (Post) (cm) 5.25 5.00 -Area of Debridement (cm) - Length 3.5 2.5 -Area of Debridement (cm) - Width 1.5 2.0 -Total Square (Area) (cm) 5.25 5.00 -Tunneling No No -Undermining/Tunneling No No -Circular Undermining No No -Wound/Ulcer Outcome Not Healed Not Healed -Bleeding Controlled with Pressure,Silver Nitrate -Treatment Response Procedure Not Tolerated Well -Debridement - Subq, 1st 20sq cm No #4 right knee cluster -Time 14:00 -Correct Patient Yes -Correct Side, Site, Position Yes -Correct Procedure Yes -Procedure Performed Yes No -Type of Procedure Debridement -Clinical Debridement Subcutaneous -Tissue Removed Subcutaneous -Post Debridement (cm) - Length 1.0 0.4 -Post Debridement (cm) - Width 1.0 3.0 -Post Debridement (cm) - Depth 0.1 0.1 -Total Square (Post) (cm) 1.00 1.20 -Area of Debridement (cm) - Length 1.0 0.4 -Area of Debridement (cm) - Width 1.0 3.0 -Total Square (Area) (cm) 1.00 1.20 -Tunneling No No -Undermining/Tunneling No No -Circular Undermining No No -Wound/Ulcer Outcome Not Healed -Ulcer Cleansing Rinsed/ Irrigated with Saline -Bioengineered Tissue No -Bleeding Controlled with Pressure -Treatment Response Procedure Not Tolerated Well -Debridement - Subq, 1st 20sq cm No #3- L KNEE SKIN TEAR POST FALL -Time 14:00 -Correct Patient Yes -Correct Side, Site, Position Yes -Correct Procedure Yes -Procedure Performed Yes No -Type of Procedure Debridement -Clinical Debridement Subcutaneous -Tissue Removed Subcutaneous -Post Debridement (cm) - Length 1.6 1.0 -Post Debridement (cm) - Width 1 0.5 -Post Debridement (cm) - Depth 0.1 0.1 -Total Square (Post) (cm) 1.6 0.50 -Area of Debridement (cm) - Length 1.6 1.0 -Area of Debridement (cm) - Width 1.0 0.5 -Total Square (Area) (cm) 1.60 0.50 -Tunneling No No -Undermining/Tunneling No No -Circular Undermining No No -Wound/Ulcer Outcome Not Healed Not Healed -Ulcer Cleansing Rinsed/ Irrigated with Saline -Bioengineered Tissue No -Bleeding Controlled with Pressure -Treatment Response Procedure Tolerated Well -Debridement - Subq, 1st 20sq cm No Pain Scale: 0-10 Numeric Is Patient Pain Free? No No BILAT LE -Description Sharp,Throbbing Sharp,Aching ,Aching -Intensity 8 10 -Duration (hours) Chronic Chronic -Pain Behavior Crying, Moaning,Crying, Irritability Irritability -Pain Aggravating Factors Debridement -Alleviating Factors/Interventions Will continue Will continue to monitor, to monitor, Emotional Emotional Support Support -Comments cetacaine spray cetecaine spray left knee -Comments cetecaine spray WC - Nurse 3 - General Ulcer D/C NN Start: 07/29/24 14:06 Freq: Status: Active Protocol: Activity Type Activity Date Activity User E-sign Co-sign Detail Recorded Client Recorded Date Recorded By Document 07/29/24 14:40 KW [id number] 07/29/24 14:41 KW Document 08/05/24 14:26 RB [id number] 08/05/24 14:30 RB 07/29/24 08/05/24 14:40 14:26 Wound Care Center Nurse 3 #8 Right Lateral Calf -Ulcer Cleansing Wound Cleanser -Primary Dressing Applied NonAdherent Contact Layer -Other Dressing hydrogel -Primary Dressing Covered/Secured with Dry Gauze & Dry Gauze,Dry Roll Gauze, Gauze & Roll Secured with Gauze,Secured Tape with Tape 6-LEFT LOWER LEG -Other Dressing hydrogel -Primary Dressing Covered/Secured with Dry Gauze Dry Gauze,Dry Gauze & Roll Gauze,Secured with Tape #4 right knee cluster -Primary Dressing Applied NonAdherent Contact Layer -Other Dressing hydrogel -Primary Dressing Covered/Secured with Dry Gauze Dry Gauze,Dry Gauze & Roll Gauze,Secured with Tape #3- L KNEE SKIN TEAR POST FALL -Primary Dressing Applied NonAdherent Contact Layer -Other Dressing hydrogel -Primary Dressing Covered/Secured with Dry Gauze & Dry Gauze,Dry Roll Gauze, Gauze & Roll Secured with Gauze,Secured Tape with Tape Right -Tubular Bandage Single Layer Single Layer -Size of Tubigrip Used Size E Size E -Size E ($) 1 1 Left -Tubular Bandage Single Layer Single Layer -Size of Tubigrip Used Size E Size E -Size E ($) 1 1 Treatment Response Procedure Tolerated Well Pain Scale: 0-10 Numeric Is Patient Pain Free? Yes Yes WC - Visit Discharge Discharge Condition Stable Ambulatory Status Wheelchair Transportation Private Auto Accompanied by Medication Reconcilliation completed & No provided to patient/care provider Clinical Summary of Care Provided Yes Charges/Coding Visit Charges Office Visits / Consults: [id number] OV L3 Est 20min Assessment/Plan Assessment/Plan (1) Non-pressure chronic ulcer of right 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: CODE(S): L97.912 - Non-pressure chronic ulcer of unspecified part of right 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 (2) Non-pressure chronic ulcer of left 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: CODE(S): L97.922 - Non-pressure chronic ulcer of unspecified part of left 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 (3) Non-pressure 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 layer exposed: CODE(S): L97.222 - Non-pressure 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 layer exposed (4) Traumatic open wound of left lower leg: CODE(S): S81.802A - Unspecified open wound, left lower leg, initial encounter QUALIFIERS: Encounter type: subsequent encounter Qualified Code(s): S81.802D - Unspecified open wound, left lower leg, subsequent encounter (5) Open wound of knee: CODE(S): S81.009A - Unspecified open wound, unspecified knee, initial encounter QUALIFIERS: Encounter type: subsequent encounter Laterality: left Qualified Code(s): S81.002D - Unspecified open wound, left knee, subsequent encounter (6) Open wound of knee: CODE(S): S81.009A - Unspecified open wound, unspecified knee, initial encounter QUALIFIERS: Encounter type: subsequent encounter Laterality: right Qualified Code(s): S81.001D - Unspecified open wound, right knee, subsequent encounter (7) 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: CODE(S): Z79.01 - [facility] (current) use of anticoagulants (8) Hammer toe of right foot: CODE(S): M20.41 - Other hammer toe(s) (acquired), right foot (9) Venous (peripheral) insufficiency: CODE(S): I87.2 - Venous insufficiency (chronic) (peripheral) (10) Atrial fibrillation: CODE(S): I48.91 - Unspecified atrial fibrillation QUALIFIERS: Atrial fibrillation type: permanent Qualified Code(s): I48.21 - Permanent atrial fibrillation (11) Shortness of breath: CODE(S): R06.02 - Shortness of breath (12) CAD (coronary artery disease): CODE(S): I25.10 - Atherosclerotic heart disease of [place] coronary artery without angina pectoris QUALIFIERS: Coronary Disease-Associated Artery/Lesion type: [place] artery [place] vs. transplanted heart: [place] heart Associated angina: without angina Qualified Code(s): I25.10 - Atherosclerotic heart disease of [place] coronary artery without angina pectoris (13) Essential hypertension: CODE(S): I10 - Essential (primary) hypertension (14) Cardiac pacemaker in situ: CODE(S): Z95.0 - Presence of cardiac pacemaker (15) AV block, complete: CODE(S): I44.2 - Atrioventricular block, complete (16) History of radiofrequency ablation procedure for cardiac arrhythmia: CODE(S): Z98.890 - Other specified postprocedural states (17) Hx of atrioventricular node ablation: CODE(S): Z98.890 - Other specified postprocedural states (18) Diastolic congestive heart failure: CODE(S): I50.30 - Unspecified diastolic (congestive) heart failure QUALIFIERS: Heart failure chronicity: chronic Qualified Code(s): I50.32 - Chronic diastolic (congestive) heart failure (19) Pulmonary hypertension: CODE(S): I27.20 - Pulmonary hypertension, unspecified (20) Nonrheumatic mitral valve regurgitation: CODE(S): I34.0 - Nonrheumatic mitral (valve) insufficiency (21) Hyperlipidemia: CODE(S): E78.5 - Hyperlipidemia, unspecified QUALIFIERS: Hyperlipidemia type: unspecified Qualified Code(s): E78.5 - Hyperlipidemia, unspecified (22) GERD (gastroesophageal reflux disease): CODE(S): K21.9 - Gastro-esophageal reflux disease without esophagitis (23) Chronic anemia: CODE(S): D64.9 - Anemia, unspecified (24) Osteoarthritis of both knees: CODE(S): M17.0 - Bilateral primary osteoarthritis of knee PLAN: Plan This is an 84-year-old female who has been recently prone to falls and injuries. She originally injured her left lateral calf on April 04, 2024, and presented for treatment at our facility. The patient has demonstrated good progress, but has returned to several scheduled visits with additional traumatic wounds to her extremities. Several of her traumatic wounds have healed, though we continue to treat wounds on both calves and both knees. The patient's wounds, in general, appear to be progressing well, without signs of infection or cellulitis. With each of the patient's serial debridements, the patient has expressed discomfort, and displeasure with the debridement process. Nonetheless, serial debridements have resulted in significant improvement over time. Upon presentation today, the patient began to exhibit manifestations of severe anxiety and apprehension. It appears as though she suffered an anxiety attack. Anxiety appeared related to the anticipation of wound debridement, as the manifestations occurred and intensified shortly prior to her anticipated wound debridements. The patient was noted to become diaphoretic, and stated I cannot breathe. I am just exhausted. Initially, preparations were made to transfer the patient to the [facility] Emergency Department. The decision to proceed with debridements of the patient's wounds was aborted, and upon realization that debridement was not to be performed, the patient's condition improved rapidly. The patient's vital signs were taken serially, and appear to remain stable. Her pulse was 67, oxygen saturation 97, and blood pressure 146/56. At no time was the patient's mental status noted to diminish. Once the patient had calmed down, discussion was undertaken with both her and her . Concern remained as to this episode, especially in consideration that she was in the Emergency Department as recently as July 31, complaining of shortness of breath. On August 01, 2024, she was evaluated by the [facility]. The patient and her voiced their preference to avoid evaluation in the Emergency Department, and indicated that they have an appointment with their primary care physician, Dr. Rashad Peñaloza, on August 06, 2024. In summary, debridement was not performed today. The patient is to continue with the use of collagen hydrogel topically to all of her wounds on a daily basis. The patient has been instructed in the appropriate means of application. Adaptic is to be placed over the wounds following administration of the collagen hydrogel. The patient uses a narcotic analgesic at home for her arthritis, which can be expected to assist in pain control relative to her wounds. The patient continues to use compression to her lower extremities by means of Tubigrip's. The patient has been encouraged to maintain optimal nutritional intake, and has been using Shekhar as a supplement. She remains on systemic anticoagulation with warfarin, which is monitored and regulated by the outpatient clinic at [facility]. The patient is to follow-up in 1 week for reevaluation. It is felt that the patient's intolerance to weekly wound debridement is an inhibiting factor relative to the healing process. Total time: 28 minutes
[2024-08-12 14:06] VITALS: BP 180/88; PULSE 88; RESP 18; TEMP 35.8; BMI 24.8
--- NOTE | 2024-08-13 16:18 | PCM.WC.HP ---
History of Present Illness Date of Service: 08/12/24 Chief Complaint: Traumatic wound of the left lateral calf, left knee, right knee, and right lateral calf History of Wound: This is an 84-year-old female who had [facility] to a traumatic wound on the left lateral calf. The wound occurred as a result of an impact with an open car door. The wound occurred on April 04, 2024, and the patient was initially seen and evaluated in the emergency department at [facility] in [place], [place]. She was treated with a prescription for cephalexin 500 mg p.o. twice daily for total of 10 days, which was completed. She subsequently presented for evaluation and management at the [facility], where initial treatment included the use of Aquacel topically, and Tubigrips. The patient has multiple pre-existing medical problems, which are listed below. These include atrial fibrillation for which she is on systemic anticoagulation therapy with Coumadin. During the course of the patient's treatment, the patient experienced a fall at home on April 29, 2024, in which she sustained a traumatic wound to her left knee and left elbow. She presented to the Emergency Department at [facility] shortly thereafter, where the left elbow wound was bandaged, and a skin flap of the left knee was secured over the wound using multiple Steri-Strips. It is also noted that a culture of the left lateral calf wound on April 16, 2024, was positive for Staphylococcus epidermidis, Corynebacterium amycolatum, Globacatella sulfidifaciens, and anaerobic cocci. As result, the patient was placed on oral linezolid and Flagyl, which was completed. 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 Hyperlipidemia Tear of biceps muscle Osteoarthrosis Diverticulitis Essential hypertension Nonrheumatic mitral valve regurgitation Pulmonary hypertension Diastolic congestive heart failure Longstanding persistent atrial fibrillation AV block, complete Home Medications ?Medication ?Instructions ?Recorded ?Last Taken ?Type docusate sodium 100 mg capsule 100 mg PO BID PRN constipation 06/03/21 12/16/23 History (Stool Softener) Lactobacillus rhamnosus GG 5 1 tab PO DAILY PRN probiotic 02/20/23 Unknown History billion cell chewable tablet ([employer] Probiotics) ondansetron 4 mg disintegrating 4 mg PO Q6H PRN PRN Nausea #10 tabs 08/17/23 12/16/23 Rx tablet ibandronate 150 mg tablet 150 mg PO QMONTH 01/07/24 Unknown History polyethylene glycol 3350 17 17 g PO DAILY PRN constipation 02/07/24 Unknown History gram/dose oral powder (Miralax) warfarin 1 mg tablet 1 mg PO .COMPLEX anticoagulation 02/07/24 Unknown History naloxegol 25 mg tablet (Movantik) 25 mg PO QAM PRN stomach upset 02/18/24 Unknown History losartan 100 mg tablet 100 mg PO DAILY #90 tabs 03/04/24 Unknown Rx calcitriol 0.25 mcg capsule 0.25 mcg PO DAILY see mar 04/07/24 Unknown History ergocalciferol (vitamin D2) 1,250 1,250 mcg PO QWEEK 04/07/24 Unknown History mcg (50,000 unit) capsule hydrocodone-acetaminophen 5-325mg 1 tab PO TID PRN Pain 04/07/24 Unknown History 5mg-325mg cimxjtdf-sqn-egbmz acid 0.4 1 tab PO DAILY 04/07/24 Unknown History mg-lycopene 300 mcg-lutein 250 mcg tablet (Centrum Silver) carvedilol 12.5 mg tablet 12.5 mg PO BID htn #180 tabs 04/11/24 Unknown Rx furosemide 40 mg tablet 40 mg PO BID edema, shortness of 07/29/24 Unknown History breath spironolactone 25 mg tablet 25 mg PO QDAY #30 tabs 07/29/24 Unknown Rx Allergy/AdvReac Type Severity Reaction Status Date / Time Iodinated Contrast Media Allergy Rash Verified 08/01/24 10:12 (Iodinated Contrast- Oral and IV Dye) iodine Allergy Rash Verified 08/01/24 10:12 Penicillins (PCN) Allergy Rash Verified 08/01/24 10:12 ciprofloxacin (From Cipro) AdvReac Intermediate dizziness Verified 08/01/24 10:12 clindamycin AdvReac Intermediate nausea Verified 08/01/24 10:12 levofloxacin (From Levaquin) AdvReac Intermediate abdominal Verified 08/01/24 10:12 pain, nausea simvastatin AdvReac Intermediate Myalgias Verified 08/01/24 10:12 Family History Father , Age 82 CAD (coronary artery disease) Myocardial infarction CVA (cerebral vascular accident) Hypertension Mother , Age 94 Hypertension CVA (cerebral vascular accident) Sister Cancer Brother , Age 13 months from congenital heart defect Congenital heart defect Surgical History History of left heart catheterization (09/09/03) History of cardioversion (07/12/05) H/O colectomy History of bunionectomy History of appendectomy History of hysterectomy (1990) History of knee replacement (05/2018) History of tilt table evaluation (06/02/04) Hx of atrioventricular node ablation History of radiofrequency ablation procedure for cardiac arrhythmia Cardiac pacemaker in situ Social History household members: spouse Smoking Status: Never smoker alcohol intake: never substance use type: does not use caffeine: No Vital Signs Vital Signs Vital Signs: Weight Weight: 136 lb Body Mass Index (BMI) 24.8 Physical Exam Const alert, oriented x3, no apparent distress, average body habitus, no limitations and well nourished Constitutional Narrative: The patient's BMI is 24.9. At the time of the patient's initial intake, she appeared calm and with normal demeanor. However, during the course of her Nurse 1 assessment, she appeared to become very apprehensive and anxious. General Appearance: cooperative, comfortable, well kempt and well developed Orientation / Consciousness: awake, oriented to person, oriented to place and oriented to time Exam Limitations: no limitations HEENT normocephalic and head/scalp atraumatic Head and Scalp: normal to inspection, normocephalic and atraumatic Face and Sinus: normal facial exam Nose: external nose normal External Ear: external ears normal Eyes EOMs intact bilaterally General Eye: normal appearance of both eyes Neck full ROM Resp normal respiratory effort, normal air movement, no retractions and no use of accessory muscles Effort and Inspection: able to speak in complete sentences Extremity General Extremity: normal exam except as noted Skin Wounds: wounds noted Wound Narrative: An open wound is noted on the distal left lateral calf. There is no obvious sign of infection or cellulitis. There is a moderate amount of bioburden and nonviable tissue. Dimensions are documented elsewhere. The abrasion of the patient's left elbow remains completely healed and epithelialized. There is an avulsion injury on the left knee, which continues to improve, and is decreasing in size. Dimensions are documented elsewhere. There is a small eschar, which is likely to slough in the near future. The prospect for healing at this site is good. There is no sign of infection or cellulitis. The right knee wound appears completely healed and epithelialized. The traumatic wound on the right forearm remains completely healed and epithelialized. The most recent traumatic wound is located on the patient's right lateral calf. Dimensions are documented elsewhere. There is no sign of infection or cellulitis. However, a large amount of bioburden and nonviable tissue are noted. Hair: normal Neuro oriented x3, CN's II-XII intact bilaterally, moves all extremities, no focal motor deficits and no sensory deficits noted Sensorium / Orientation: awake, alert, oriented to person, oriented to place and oriented to time Psych Appearance: grossly normal Speech: normal speech Thought Content: normal thought content Judgement: judgement good Debridement Note Debridement Note Wound debrided: Left lateral calf wound Laterality: Left Type of Debridement: Excisional debridement Anesthesia Used: 5% Lidocaine Gel and Cetacaine Depth: Down to and including healthy tissue and in the subcutaneous layer Percentage of wound debrided: 100 Instrument Used: 5mm curette and - (Misonix Ultrasonic Debridement Device) Tissue Removed: Bioburden and non-viable, necrotic tissue Severity: Fat Layer Exposed Amount of bleeding with debridement: Mild Bleeding Controlled with: Compression and gauze Patient tolerated procedure: Patient did not tolerate procedure well Debridement Free Text: As in past visit, the patient did not tolerate debridement well. An effort was made to debride the calf wounds using standard mechanical debridement with a sterile 5 mm curette. Patient did not tolerate mechanical debridement well, prompting the use of the Misonix ultrasonic debridement device. Ultrasonic debridement was performed of both calf wounds. The ultrasonic debridement was somewhat better tolerated, though not entirely. Ultrasonic debridement did allow for the removal of more nonviable tissue present at the wound surface. A small area of the dermis was removed at the superior pole of the left calf wound inadvertently as a result of the extreme fragility of the patient's skin. Post-Debridement Measurements and Additional Note: Post-Debridement Measurements/Treatment - Nurse 1 - General Ulcer Assessment Start: 07/29/24 14:06 Freq: Status: Active Protocol: JAVAN Activity Type Activity Date Activity User E-sign Co-sign Detail Recorded Client Recorded Date Recorded By Document 07/29/24 14:06 RB [id number] 07/29/24 14:12 RB Document 08/05/24 13:26 KW [id number] 08/05/24 13:50 KW Document 08/05/24 14:04 DS [id number] 08/05/24 14:22 DS Document 08/12/24 14:06 RB [id number] 08/12/24 14:24 RB 07/29/24 08/05/24 08/05/24 14:06 13:26 14:04 - Today's Visit Information Type of service Follow-up Visit Follow-up Visit (Physician/TEACHER ADULT EDUCATION (Physician/TEACHER ADULT EDUCATION ) ) Arrival Mode Ambulatory,Cane Ambulatory,Cane Transfer Assistance Manual Accompanied by Patient Identification Verified (Name & Yes Yes ) Patient Requires Transmission-Based No Precautions Height and Weight Body Mass Index (BMI) 24.8 24.8 24.8 BMI Classification Normal Normal Normal Vital Signs Temperature (97.8 F-99.1 F) 97 F L 97.6 F L Temperature Source Temporal Temporal Pulse Rate (60-100) 62 64 Pulse Location Monitor Monitor Monitor Respiratory Rate (12-18) 18 18 20 H Respiratory rate source Observation Observation Observation Pulse Oximetry 97 Oxygen Delivery Method Room Air Room Air Blood Pressure (90/60-120/80) 158/65 H 146/56 H Blood Pressure Mean 96 86 Source Monitor Monitor Monitor Position Semi-Fowlers Semi-Fowlers Sitting Blood Pressure Location Left Arm Left Arm Right Arm History Since Last Visit- (Skip if this is Patient's initial visit) Have you changed medications since your No No last visit? Any new allergies or adverse reactions No No Had a fall/change in ADL's that may No No increase risk of falls Signs or symptoms of abuse and/or No No neglect since last visit Have you been in the hospital since your No No last visit? Has dressing in place as prescribed Yes Yes Has compression in place as prescribed No Yes Has offloadiing in place as prescribed No N/A Experienced any changes in pain level or No No management Left Footwear Regular Shoe Right Footwear Regular Shoe Pain Scale: 0-10 Numeric Is Patient Pain Free? No No No BILAT LE -Description Aching Sharp,Aching -Intensity 8 10 8 -Duration (hours) Acute Chronic -Pain Behavior Withdrawal from Crying, Touch Irritability, Facial Grimacing -Pain Aggravating Factors Exercise/ Activity, Walking, Debridement -Alleviating Factors/Interventions Medication Medication Will continue to monitor, Emotional Support -Effectiveness of Alleviating Factor/ Minimally Intervention effective -Comments feels pulling from dressing 08/12/24 14:06 WC - Today's Visit Information Type of service Follow-up Visit (Physician/TEACHER ADULT EDUCATION ) Arrival Mode Ambulatory Transfer Assistance None Accompanied by Patient Identification Verified (Name & Yes ) Patient Requires Transmission-Based No Precautions Height and Weight Body Mass Index (BMI) 24.8 BMI Classification Normal Vital Signs Temperature (97.8 F-99.1 F) 96.5 F L Temperature Source Temporal Pulse Rate (60-100) 88 Pulse Location Monitor Respiratory Rate (12-18) 18 Respiratory rate source Observation Pulse Oximetry Oxygen Delivery Method Blood Pressure (90/60-120/80) 180/88 H Blood Pressure Mean 118 Source Monitor Position Semi-Fowlers Blood Pressure Location Left Arm History Since Last Visit- (Skip if this is Patient's initial visit) Have you changed medications since your No last visit? Any new allergies or adverse reactions No Had a fall/change in ADL's that may No increase risk of falls Signs or symptoms of abuse and/or No neglect since last visit Have you been in the hospital since your No last visit? Has dressing in place as prescribed Yes Has compression in place as prescribed Yes Has offloadiing in place as prescribed No Experienced any changes in pain level or No management Left Footwear Right Footwear Pain Scale: 0-10 Numeric Is Patient Pain Free? No BILAT LE -Description Burning,Aching -Intensity 8 -Duration (hours) -Pain Behavior Irritability, Withdrawal from Touch -Pain Aggravating Factors Exercise/ Activity, Debridement -Alleviating Factors/Interventions Medication -Effectiveness of Alleviating Factor/ Minimally Intervention effective -Comments WC - Nurse 1 - General Ulcer Measurement Start: 07/29/24 14:06 Freq: Status: Active Protocol: Activity Type Activity Date Activity User E-sign Co-sign Detail Recorded Client Recorded Date Recorded By Document 07/29/24 14:06 RB [id number] 07/29/24 14:12 RB Document 08/05/24 13:26 KW [id number] 08/05/24 13:50 KW Document 08/12/24 14:06 RB [id number] 08/12/24 14:24 RB 07/29/24 08/05/24 08/12/24 14:06 13:26 14:06 Wound Center Nurse 1 #4 right knee cluster -Combined with other wound No No -Current Size (cm) - Length 0.1 0.1 0.1 -Current Size (cm) - Width 0.1 0.1 0.1 -Current Size (cm) - Depth 0.1 0.1 0.1 -Total Square Cm 0.01 0.01 0.01 -Photo Taken Yes Yes -Tunneling No No -Undermining/Tunneling No No -Circular Undermining No No -Exudate Amt None Present Small Small -Exudate Type Serosanguineous Serosanguineous -Wound Margin Distinct, Distinct, Distinct, Outline Outline Outline Attached Attached Attached -Granulation Amt Large (67-100%) Small (1-33%) Medium (34-66%) -Granulation Quality [place] -Slough/Fibrin Yes Yes -Necrosis Amt Small (1-33%) Large (67-100%) Medium (34-66%) -Necrotic Tissue Type Adherent Slough Adherent Slough Adherent Slough -Structure Exposed N/A N/A -Texture (Nhung-wound Skin Appearance) Assessed, Assessed Assessed Scarring -Moisture (Nhung-wound Skin Appearance) Assessed Assessed Assessed -Color (Nhung-wound Skin Appearance) Assessed Assessed, Assessed Erythema -Temperature (Nhung-wound Skin No Abnormality No Abnormality No Abnormality Appearance) (Pt Warm) (Pt Warm) (Pt Warm) -Tenderness on Palpation (Nhung-wound No No No Skin Appearance) -Ulcer Cleansing Wound Cleanser Soap and Water Wound Cleanser -Foul Odor after Cleansing No No No -Anesthetic Used 5% Lidocaine 4% Lidocaine 4% Lidocaine Gel Solution,5% Solution,5% Lidocaine Gel, Lidocaine Gel Cetacaine #8 Right Lateral Calf -Combined with other wound No No -Current Size (cm) - Length 4.5 0.1 4.6 -Current Size (cm) - Width 3 0.1 3.2 -Current Size (cm) - Depth 0.1 0.1 0.1 -Total Square Cm 13.5 0.01 14.72 -Photo Taken Yes Yes -Tunneling No No -Undermining/Tunneling No No -Circular Undermining No No -Exudate Amt Medium Small Large -Exudate Type Serosanguineous Serosanguineous Serosanguineous -Wound Margin Distinct, Distinct, Distinct, Outline Outline Outline Attached Attached Attached -Granulation Amt Small (1-33%) Small (1-33%) Medium (34-66%) -Granulation Quality [place] -Slough/Fibrin Yes Yes -Necrosis Amt Large (67-100%) Large (67-100%) Small (1-33%) -Necrotic Tissue Type Eschar Adherent Slough Adherent Slough -Structure Exposed N/A N/A -Texture (Nhung-wound Skin Appearance) Scarring Assessed Assessed, Scarring -Moisture (Nhung-wound Skin Appearance) Assessed Assessed Assessed -Color (Nhung-wound Skin Appearance) Assessed Assessed, Assessed, Erythema Hemosiderin Staining -Temperature (Nhung-wound Skin No Abnormality No Abnormality No Abnormality Appearance) (Pt Warm) (Pt Warm) (Pt Warm) -Tenderness on Palpation (Nhung-wound No No No Skin Appearance) -Ulcer Cleansing Wound Cleanser Soap and Water Wound Cleanser -Foul Odor after Cleansing No No No -Anesthetic Used 5% Lidocaine 4% Lidocaine 4% Lidocaine Gel Solution,5% Solution,5% Lidocaine Gel, Lidocaine Gel Cetacaine 6-LEFT LOWER LEG -Combined with other wound No No -Current Size (cm) - Length 2.3 0.1 2.7 -Current Size (cm) - Width 1.5 0.1 2.2 -Current Size (cm) - Depth 0.1 0.1 0.1 -Total Square Cm 3.45 0.01 5.94 -Photo Taken Yes Yes -Tunneling No No -Undermining/Tunneling No No -Circular Undermining No No -Exudate Amt Large Small Large -Exudate Type Serosanguineous Serosanguineous Serosanguineous -Wound Margin Distinct, Distinct, Distinct, Outline Outline Outline Attached Attached Attached -Granulation Amt Medium (34-66%) Small (1-33%) Medium (34-66%) -Granulation Quality [place] -Slough/Fibrin Yes Yes -Necrosis Amt Medium (34-66%) Large (67-100%) Medium (34-66%) -Necrotic Tissue Type Adherent Slough Adherent Slough Adherent Slough -Structure Exposed N/A N/A -Texture (Nhung-wound Skin Appearance) Assessed, Assessed Assessed Scarring -Moisture (Nhung-wound Skin Appearance) Assessed Assessed Assessed -Color (Nhung-wound Skin Appearance) Assessed Assessed, Hemosiderin Erythema Staining -Temperature (Nhung-wound Skin No Abnormality No Abnormality No Abnormality Appearance) (Pt Warm) (Pt Warm) (Pt Warm) -Tenderness on Palpation (Nhung-wound No No No Skin Appearance) -Ulcer Cleansing Wound Cleanser Soap and Water Wound Cleanser -Foul Odor after Cleansing No No No -Anesthetic Used 5% Lidocaine 4% Lidocaine 4% Lidocaine Gel Solution,5% Solution,5% Lidocaine Gel, Lidocaine Gel Cetacaine #3- L KNEE SKIN TEAR POST FALL -Combined with other wound No No -Current Size (cm) - Length 0.1 0.7 -Current Size (cm) - Width 0.1 0.4 -Current Size (cm) - Depth 0.1 0.1 -Total Square Cm 0.01 0.28 -Photo Taken Yes Yes -Tunneling No No -Undermining/Tunneling No No -Circular Undermining No No -Exudate Amt None Present Small Small -Exudate Type Serosanguineous Serosanguineous -Wound Margin Distinct, Distinct, Distinct, Outline Outline Outline Attached Attached Attached -Granulation Amt Medium (34-66%) Small (1-33%) Medium (34-66%) -Granulation Quality [place] -Slough/Fibrin Yes Yes -Necrosis Amt Small (1-33%) Large (67-100%) Small (1-33%) -Necrotic Tissue Type Adherent Slough Adherent Slough Adherent Slough -Structure Exposed N/A N/A -Texture (Nhung-wound Skin Appearance) Assessed, Assessed Assessed, Scarring Localized Edema -Moisture (Nhung-wound Skin Appearance) Assessed Assessed Assessed -Color (Nhung-wound Skin Appearance) Assessed Assessed, Assessed Erythema -Temperature (Nhung-wound Skin No Abnormality No Abnormality No Abnormality Appearance) (Pt Warm) (Pt Warm) (Pt Warm) -Tenderness on Palpation (Nhung-wound No No No Skin Appearance) -Ulcer Cleansing Wound Cleanser Soap and Water Wound Cleanser -Foul Odor after Cleansing No No No -Anesthetic Used 5% Lidocaine 4% Lidocaine 4% Lidocaine Gel Solution,5% Solution,5% Lidocaine Gel, Lidocaine Gel Cetacaine -Wound Comment(s) pt assited to restroom Lower Limb Edema Present Yes Right Calf (cm) 35.5 Right Ankle (cm) 22 Left Calf (cm) 36 Left Ankle (cm) 23.5 WC - Nurse 2 - General Ulcer CM Notes Start: 07/29/24 14:06 Freq: Status: Active Protocol: Activity Type Activity Date Activity User E-sign Co-sign Detail Recorded Client Recorded Date Recorded By Document 07/29/24 14:21 DS [id number] 07/29/24 14:35 DS Document 08/05/24 14:00 DS [id number] 08/05/24 16:16 DS Document 08/12/24 14:35 DS [id number] 08/12/24 14:52 DS Edit Result 08/12/24 14:35 DS (1) 000 08/12/24 15:45 DS (1) #8 Right Lateral Calf - Post Debridement (cm) - Length => 4.9 - Post Debridement (cm) - Width => 3.5 - Post Debridement (cm) - Depth => 0.2 - Total Square (Post) (cm) => 17.15 - Area of Debridement (cm) - Length => 4.9 - Area of Debridement (cm) - Width => 3.5 - Total Square (Area) (cm) => 17.15 6-LEFT LOWER LEG - Post Debridement (cm) - Length => 6.5 - Post Debridement (cm) - Width => 2.7 - Post Debridement (cm) - Depth => 0.2 - Total Square (Post) (cm) => 17.55 - Area of Debridement (cm) - Length => 6.5 - Area of Debridement (cm) - Width => 2.7 - Total Square (Area) (cm) => 17.55 - Treatment Response Procedure => Procedure Not Tolerated Well => Tolerated Well - Debridement, SubQ, ea addt'l 20sq cm => 1 or part thereof - Wound Comment(s) => misonix used on bl LE #3- L KNEE SKIN TEAR POST FALL - Post Debridement (cm) - Length => 1.2 - Post Debridement (cm) - Width => 0.5 - Post Debridement (cm) - Depth => 0.1 - Total Square (Post) (cm) => 0.60 - Area of Debridement (cm) - Length => 1.2 - Area of Debridement (cm) - Width => 0.5 - Total Square (Area) (cm) => 0.60 - Tunneling => No - Undermining/Tunneling => No - Circular Undermining => No - Wound/Ulcer Outcome => Not Healed 07/29/24 08/05/24 08/12/24 14: 14:00 14:35 Wound Center Nurse 2 #4 right knee cluster -Time 14: 14:00 -Correct Patient Yes -Correct Side, Site, Position Yes -Correct Procedure Yes -Procedure Performed Yes No No -Type of Procedure Debridement -Clinical Debridement Subcutaneous -Tissue Removed Subcutaneous -Post Debridement (cm) - Length 1.0 0.4 -Post Debridement (cm) - Width 1.0 3.0 -Post Debridement (cm) - Depth 0.1 0.1 -Total Square (Post) (cm) 1.00 1.20 -Area of Debridement (cm) - Length 1.0 0.4 -Area of Debridement (cm) - Width 1.0 3.0 -Total Square (Area) (cm) 1.00 1.20 -Tunneling No No -Undermining/Tunneling No No -Circular Undermining No No -Wound/Ulcer Outcome Not Healed Healed- Epithelialized -Ulcer Cleansing Rinsed/ Irrigated with Saline -Bioengineered Tissue No -Bleeding Controlled with Pressure -Treatment Response Procedure Not Tolerated Well -Debridement - Subq, 1st 20sq cm No #8 Right Lateral Calf -Time 14: 14:00 14:40 -Correct Patient Yes Yes -Correct Side, Site, Position Yes Yes -Correct Procedure Yes Yes -Procedure Performed Yes No Yes -Type of Procedure Debridement Debridement -Clinical Debridement Subcutaneous Subcutaneous -Tissue Removed Subcutaneous Subcutaneous -Post Debridement (cm) - Length 4.5 4.5 4.9 -Post Debridement (cm) - Width 3.7 3.5 3.5 -Post Debridement (cm) - Depth 0.1 0.1 0.2 -Total Square (Post) (cm) 16.65 15.75 17.15 -Area of Debridement (cm) - Length 4.5 4.5 4.9 -Area of Debridement (cm) - Width 3.7 3.5 3.5 -Total Square (Area) (cm) 16.65 15.75 17.15 -Tunneling No No No -Undermining/Tunneling No No No -Circular Undermining No No No -Wound/Ulcer Outcome Not Healed Not Healed Not Healed -Ulcer Cleansing Rinsed/ Rinsed/ Irrigated with Irrigated with Saline Saline -Bioengineered Tissue No No -Bleeding Controlled with Pressure Pressure -Treatment Response Procedure Procedure Not Tolerated Well Tolerated Well -Debridement - Subq, 1st 20sq cm Yes No -Debridement, SubQ, ea addt'l 20sq cm 1 or part thereof 6-LEFT LOWER LEG -Time 14: 14:00 14:39 -Correct Patient Yes Yes -Correct Side, Site, Position Yes Yes -Correct Procedure Yes Yes -Procedure Performed Yes No Yes -Type of Procedure Debridement Debridement -Clinical Debridement Subcutaneous Subcutaneous -Tissue Removed Subcutaneous Subcutaneous -Post Debridement (cm) - Length 3.5 2.5 6.5 -Post Debridement (cm) - Width 1.5 2.0 2.7 -Post Debridement (cm) - Depth 1.0 0.2 0.2 -Total Square (Post) (cm) 5.25 5.00 17.55 -Area of Debridement (cm) - Length 3.5 2.5 6.5 -Area of Debridement (cm) - Width 1.5 2.0 2.7 -Total Square (Area) (cm) 5.25 5.00 17.55 -Tunneling No No No -Undermining/Tunneling No No No -Circular Undermining No No No -Wound/Ulcer Outcome Not Healed Not Healed Not Healed -Ulcer Cleansing Rinsed/ Irrigated with Saline -Bioengineered Tissue No -Bleeding Controlled with Pressure,Silver Pressure Nitrate -Treatment Response Procedure Not Procedure Not Tolerated Well Tolerated Well -Debridement - Subq, 1st 20sq cm No Yes -Debridement, SubQ, ea addt'l 20sq cm 1 or part thereof -Wound Comment(s) misonix used on bl LE #3- L KNEE SKIN TEAR POST FALL -Time 14:21 14:00 14:38 -Correct Patient Yes -Correct Side, Site, Position Yes -Correct Procedure Yes -Procedure Performed Yes No -Type of Procedure Debridement -Clinical Debridement Subcutaneous -Tissue Removed Subcutaneous -Post Debridement (cm) - Length 1.6 1.0 1.2 -Post Debridement (cm) - Width 1 0.5 0.5 -Post Debridement (cm) - Depth 0.1 0.1 0.1 -Total Square (Post) (cm) 1.6 0.50 0.60 -Area of Debridement (cm) - Length 1.6 1.0 1.2 -Area of Debridement (cm) - Width 1.0 0.5 0.5 -Total Square (Area) (cm) 1.60 0.50 0.60 -Tunneling No No No -Undermining/Tunneling No No No -Circular Undermining No No No -Wound/Ulcer Outcome Not Healed Not Healed Not Healed -Ulcer Cleansing Rinsed/ Irrigated with Saline -Bioengineered Tissue No -Bleeding Controlled with Pressure -Treatment Response Procedure Tolerated Well -Debridement - Subq, 1st 20sq cm No Pain Scale: 0-10 Numeric Is Patient Pain Free? No No No BILAT LE -Description Sharp,Throbbing Sharp,Aching Sharp,Throbbing ,Aching -Intensity 8 10 10 -Duration (hours) Chronic Chronic Chronic -Pain Behavior Crying, Moaning,Crying, Irritability Irritability -Pain Aggravating Factors Debridement Debridement -Alleviating Factors/Interventions Will continue Will continue Will continue to monitor, to monitor, to monitor, Emotional Emotional Emotional Support Support Support -Comments cetacaine spray cetecaine spray left knee -Comments cetecaine spray WC - Nurse 3 - General Ulcer D/C NN Start: 07/29/24 14:06 Freq: Status: Active Protocol: Activity Type Activity Date Activity User E-sign Co-sign Detail Recorded Client Recorded Date Recorded By Document 07/29/24 14:40 KW [id number] 07/29/24 14:41 KW Document 08/05/24 14:26 RB [id number] 08/05/24 14:30 RB Document 08/12/24 15:20 RB [id number] 08/12/24 15:22 RB 07/29/24 08/05/24 08/12/24 14:40 14:26 15:20 [facility] Nurse 3 #4 right knee cluster -Primary Dressing Applied NonAdherent Contact Layer -Other Dressing hydrogel -Primary Dressing Covered/Secured with Dry Gauze Dry Gauze,Dry Gauze & Roll Gauze,Secured with Tape #8 Right Lateral Calf -Ulcer Cleansing Wound Cleanser -Primary Dressing Applied NonAdherent Contact Layer -Other Dressing hydrogel hydrogel -Primary Dressing Covered/Secured with Dry Gauze & Dry Gauze,Dry Dry Gauze,Dry Roll Gauze, Gauze & Roll Gauze & Roll Secured with Gauze,Secured Gauze,Secured Tape with Tape with Tape 6-LEFT LOWER LEG -Other Dressing hydrogel hydrogel -Primary Dressing Covered/Secured with Dry Gauze Dry Gauze,Dry Dry Gauze,Dry Gauze & Roll Gauze & Roll Gauze,Secured Gauze,Secured with Tape with Tape #3- L KNEE SKIN TEAR POST FALL -Primary Dressing Applied NonAdherent Contact Layer -Other Dressing hydrogel hydrogel -Primary Dressing Covered/Secured with Dry Gauze & Dry Gauze,Dry Dry Gauze, Roll Gauze, Gauze & Roll Secured with Secured with Gauze,Secured Tape Tape with Tape Right -Tubular Bandage Single Layer Single Layer Single Layer -Size of Tubigrip Used Size E Size E Size E -Size E ($) 1 1 1 Left -Tubular Bandage Single Layer Single Layer Single Layer -Size of Tubigrip Used Size E Size E Size E -Size E ($) 1 1 1 Treatment Response Procedure Procedure Tolerated Well Tolerated Well Pain Scale: 0-10 Numeric Is Patient Pain Free? Yes Yes No BILAT LE -Description Burning,Aching -Intensity 8 -Alleviating Factors/Interventions Medication -Effectiveness of Alleviating Factor/ Minimally Intervention effective WC - Visit Discharge Discharge Condition Stable Stable Ambulatory Status Wheelchair Wheelchair Transportation Private Auto Private Auto Accompanied by Medication Reconcilliation completed & No No provided to patient/care provider Clinical Summary of Care Provided Yes Yes Additional Wound Wound debrided: Left lateral calf Laterality: Left Type of Debridement: Excisional debridement Anesthesia Used: 5% Lidocaine Gel and Cetacaine Depth: Down to and including healthy tissue and in the subcutaneous layer Percentage of wound debrided: 100 Instrument Used: 5mm curette and - ([employer] Ultrasonic Debridement Device) Tissue Removed: Bioburden and non-viable, necrotic tissue Severity: Fat Layer Exposed Amount of bleeding with debridement: Mild Bleeding Controlled with: Compression and gauze Patient tolerated procedure: Patient did not tolerate procedure well Charges/Coding Multi Select Codes Integumentary Integumentary CPT Codes: 04030 Pili subq tissue 20 sq cm/< (67785 - Right Leg; 50951 - Left Leg) Assessment/Plan Assessment/Plan (1) Non-pressure chronic ulcer of right 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: CODE(S): L97.912 - Non-pressure chronic ulcer of unspecified part of right 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 (2) Non-pressure chronic ulcer of left 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: CODE(S): L97.922 - Non-pressure chronic ulcer of unspecified part of left 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 (3) Non-pressure 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 layer exposed: CODE(S): L97.222 - Non-pressure 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 layer exposed (4) Traumatic open wound of left lower leg: CODE(S): S81.802A - Unspecified open wound, left lower leg, initial encounter QUALIFIERS: Encounter type: subsequent encounter Qualified Code(s): S81.802D - Unspecified open wound, left lower leg, subsequent encounter (5) Open wound of knee: CODE(S): S81.009A - Unspecified open wound, unspecified knee, initial encounter QUALIFIERS: Encounter type: subsequent encounter Laterality: left Qualified Code(s): S81.002D - Unspecified open wound, left knee, subsequent encounter (6) Open wound of knee: CODE(S): S81.009A - Unspecified open wound, unspecified knee, initial encounter QUALIFIERS: Encounter type: subsequent encounter Laterality: right Qualified Code(s): S81.001D - Unspecified open wound, right knee, subsequent encounter (7) Current use of joint terminal attack controller anticoagulation: CODE(S): Z79.01 - residential (current) use of anticoagulants (8) Hammer toe of right foot: CODE(S): M20.41 - Other hammer toe(s) (acquired), right foot (9) Venous (peripheral) insufficiency: CODE(S): I87.2 - Venous insufficiency (chronic) (peripheral) (10) Atrial fibrillation: CODE(S): I48.91 - Unspecified atrial fibrillation QUALIFIERS: Atrial fibrillation type: permanent Qualified Code(s): I48.21 - Permanent atrial fibrillation (11) Shortness of breath: CODE(S): R06.02 - Shortness of breath (12) CAD (coronary artery disease): CODE(S): I25.10 - Atherosclerotic heart disease of [place] coronary artery without angina pectoris QUALIFIERS: Coronary Disease-Associated Artery/Lesion type: [place] artery [place] vs. transplanted heart: [place] heart Associated angina: without angina Qualified Code(s): I25.10 - Atherosclerotic heart disease of [place] coronary artery without angina pectoris (13) Essential hypertension: CODE(S): I10 - Essential (primary) hypertension (14) Cardiac pacemaker in situ: CODE(S): Z95.0 - Presence of cardiac pacemaker (15) AV block, complete: CODE(S): I44.2 - Atrioventricular block, complete (16) History of radiofrequency ablation procedure for cardiac arrhythmia: CODE(S): Z98.890 - Other specified postprocedural states (17) Hx of atrioventricular node ablation: CODE(S): Z98.890 - Other specified postprocedural states (18) Diastolic congestive heart failure: CODE(S): I50.30 - Unspecified diastolic (congestive) heart failure QUALIFIERS: Heart failure chronicity: chronic Qualified Code(s): I50.32 - Chronic diastolic (congestive) heart failure (19) Pulmonary hypertension: CODE(S): I27.20 - Pulmonary hypertension, unspecified (20) Nonrheumatic mitral valve regurgitation: CODE(S): I34.0 - Nonrheumatic mitral (valve) insufficiency (21) Hyperlipidemia: CODE(S): E78.5 - Hyperlipidemia, unspecified QUALIFIERS: Hyperlipidemia type: unspecified Qualified Code(s): E78.5 - Hyperlipidemia, unspecified (22) GERD (gastroesophageal reflux disease): CODE(S): K21.9 - Gastro-esophageal reflux disease without esophagitis (23) Chronic anemia: CODE(S): D64.9 - Anemia, unspecified (24) Osteoarthritis of both knees: CODE(S): M17.0 - Bilateral primary osteoarthritis of knee PLAN: Plan This is an 84-year-old female who has been recently prone to falls and injuries. She originally injured her left lateral calf on April 04, 2024, and presented for treatment at our facility. The patient has demonstrated good progress, but has returned to several scheduled visits with additional traumatic wounds to her extremities. Several of her traumatic wounds have healed, though we continue to treat wounds on both calves and the left knee. The right knee wound appears healed. The patient's wounds are without signs of infection or cellulitis. With each of the patient's serial debridements, the patient has expressed discomfort, and displeasure with the debridement process. As result, we have utilized the [employer] ultrasonic debridement device today relative to the patient's calf wounds. This debridement was not completely tolerated, but somewhat better than standard mechanical debridements. The patient is to continue with the daily use of collagen hydrogel topically to her left knee wound, and collagenase Santyl topically to each of her calf wounds. The patient has been instructed in the appropriate means of application. Adaptic is to be placed over the wounds following administration of the collagen hydrogel and collagenase Santyl. The patient uses a narcotic analgesic at home for her arthritis, which can be expected to assist in pain control relative to her wounds. The patient continues to use compression to her lower extremities by means of Tubigrip's. The patient has been encouraged to maintain optimal nutritional intake, and has been using Shekhar as a supplement. She remains on systemic anticoagulation with warfarin, which is monitored and regulated by the outpatient clinic at [facility]. The patient is to follow-up in 1 week for reevaluation. It is felt that the patient's intolerance to weekly wound debridement is an inhibiting factor relative to the healing process. It is also known that the patient was hospitalized at [facility] for several days since her prior appointment at our facility for reasons unrelated to her wounds. Total time: 28 minutes
--- NOTE | 2024-08-14 11:46 | WC ---
PHOTO 08/12/24 AD
--- NOTE | 2024-08-14 11:46 | WC ---
PHOTO 08/12/24 LEFT KNEE
--- NOTE | 2024-08-14 11:47 | WC ---
PHOTO 08/12/24 RIGHT KNEE
--- NOTE | 2024-08-14 11:47 | WC ---
PHOTO 08/12/24 ADI
[2024-08-19 14:36] VITALS: BP 150/93; PULSE 67; RESP 18; TEMP 36.9; BMI 24.8
--- NOTE | 2024-08-20 11:59 | HP.PCM_ITS ---
History of Present Illness Date of Service: 08/19/24 Chief Complaint: Traumatic wound of the left lateral calf, left knee, right knee, and right lateral calf History of Wound: This is an 84-year-old female who had [facility] to a traumatic wound on the left lateral calf. The wound occurred as a result of an impact with an open car door. The wound occurred on April 04, 2024, and the patient was initially seen and evaluated in the emergency department at [facility] in [place], [place]. She was treated with a prescription for cephalexin 500 mg p.o. twice daily for total of 10 days, which was completed. She subsequently presented for evaluation and management at the [facility], where initial treatment included the use of Aquacel topically, and Tubigrips. The patient has multiple pre-existing medical problems, which are listed below. These include atrial fibrillation for which she is on systemic anticoagulation therapy with Coumadin. During the course of the patient's treatment, the patient experienced a fall at home on April 29, 2024, in which she sustained a traumatic wound to her left knee and left elbow. She presented to the Emergency Department at [facility] shortly thereafter, where the left elbow wound was bandaged, and a skin flap of the left knee was secured over the wound using multiple Steri-Strips. It is also noted that a culture of the left lateral calf wound on April 16, 2024, was positive for Staphylococcus epidermidis, Corynebacterium amycolatum, Globacatella sulfidifaciens, and anaerobic cocci. As result, the patient was placed on oral linezolid and Flagyl, which was completed. 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 Hyperlipidemia Tear of biceps muscle Osteoarthrosis Diverticulitis Essential hypertension Nonrheumatic mitral valve regurgitation Pulmonary hypertension Diastolic congestive heart failure Longstanding persistent atrial fibrillation AV block, complete Home Medications ?Medication ?Instructions ?Recorded ?Last Taken ?Type docusate sodium 100 mg capsule 100 mg PO BID PRN constipation 06/03/21 12/16/23 History (Stool Softener) Lactobacillus rhamnosus GG 5 1 tab PO DAILY PRN probiotic 02/20/23 Unknown History billion cell chewable tablet ([employer] Probiotics) ondansetron 4 mg disintegrating 4 mg PO Q6H PRN PRN Nausea #10 tabs 08/17/23 12/16/23 Rx tablet ibandronate 150 mg tablet 150 mg PO QMONTH 01/07/24 Unknown History polyethylene glycol 3350 17 17 g PO DAILY PRN constipation 02/07/24 Unknown History gram/dose oral powder (Miralax) warfarin 1 mg tablet 1 mg PO .COMPLEX anticoagulation 02/07/24 Unknown History naloxegol 25 mg tablet (Movantik) 25 mg PO QAM PRN stomach upset 02/18/24 Unknown History calcitriol 0.25 mcg capsule 0.25 mcg PO DAILY see mar 04/07/24 Unknown History ergocalciferol (vitamin D2) 1,250 1,250 mcg PO QWEEK 04/07/24 Unknown History mcg (50,000 unit) capsule hydrocodone-acetaminophen 5-325mg 1 tab PO TID PRN Pain 04/07/24 Unknown History 5mg-325mg yaxuirbv-phv-slanx acid 0.4 1 tab PO DAILY 04/07/24 Unknown History mg-lycopene 300 mcg-lutein 250 mcg tablet (Centrum Silver) carvedilol 12.5 mg tablet 12.5 mg PO BID htn #180 tabs 04/11/24 Unknown Rx furosemide 40 mg tablet 40 mg PO BID edema, shortness of 07/29/24 Unknown History breath spironolactone 25 mg tablet 25 mg PO QDAY #30 tabs 07/29/24 Unknown Rx sacubitril 49 mg-valsartan 51 mg 1 tab PO BID Pt stopped Losartan 08/19/24 Unknown Rx tablet (Entresto) #60 tabs Allergy/AdvReac Type Severity Reaction Status Date / Time Iodinated Contrast Media Allergy Rash Verified 08/16/24 19:59 (Iodinated Contrast- Oral and IV Dye) iodine Allergy Rash Verified 08/16/24 19:59 Penicillins (PCN) Allergy Rash Verified 08/16/24 19:59 ciprofloxacin (From Cipro) AdvReac Intermediate dizziness Verified 08/16/24 19:59 clindamycin AdvReac Intermediate nausea Verified 08/16/24 19:59 levofloxacin (From Levaquin) AdvReac Intermediate abdominal Verified 08/16/24 19:59 pain, nausea simvastatin AdvReac Intermediate Myalgias Verified 08/16/24 19:59 Family History Father , Age 82 CAD (coronary artery disease) Myocardial infarction CVA (cerebral vascular accident) Hypertension Mother , Age 94 Hypertension CVA (cerebral vascular accident) Sister Cancer Brother , Age 13 months from congenital heart defect Congenital heart defect Surgical History History of left heart catheterization (09/09/03) History of cardioversion (07/12/05) H/O colectomy History of bunionectomy History of appendectomy History of hysterectomy (1990) History of knee replacement (05/2018) History of tilt table evaluation (06/02/04) Hx of atrioventricular node ablation History of radiofrequency ablation procedure for cardiac arrhythmia Cardiac pacemaker in situ Social History household members: spouse Smoking Status: Never smoker alcohol intake: never substance use type: does not use caffeine: No Vital Signs Vital Signs Vital Signs: 08/19/24 14:36 Temperature 98.5 F Temperature Source Temporal Pulse Rate 67 Respiratory Rate 18 Blood Pressure 150/93 H Blood Pressure Mean 112 Blood Pressure Source Monitor Blood Pressure Position Semi-Fowlers Blood Pressure Location Left Arm Oxygen Delivery Method Room Air Weight Weight: 136 lb Body Mass Index (BMI) 24.8 Physical Exam Const alert, oriented x3, no apparent distress, average body habitus, no limitations and well nourished Constitutional Narrative: The patient's BMI is 24.9. At the time of the patient's initial intake, she appeared calm and with normal demeanor. However, during the course of her Nurse 1 assessment, she appeared to become very apprehensive and anxious. General Appearance: cooperative, comfortable, well kempt and well developed Orientation / Consciousness: awake, oriented to person, oriented to place and oriented to time Exam Limitations: no limitations HEENT normocephalic and head/scalp atraumatic Head and Scalp: normal to inspection, normocephalic and atraumatic Face and Sinus: normal facial exam Nose: external nose normal External Ear: external ears normal Eyes EOMs intact bilaterally General Eye: normal appearance of both eyes Neck full ROM Resp normal respiratory effort, normal air movement, no retractions and no use of accessory muscles Effort and Inspection: able to speak in complete sentences Extremity General Extremity: normal exam except as noted Skin Wounds: wounds noted Wound Narrative: An open wound is noted on the distal left lateral calf. There is no obvious sign of infection or cellulitis. There is a moderate amount of bioburden and nonviable tissue. The amount of nonviable tissue appears to be diminishing. Dimensions are documented elsewhere. The left knee wound is now completely healed and epithelialized. The right knee wound remains completely healed and epithelialized. The wound on the right lateral calf persists, with a moderate amount of bioburden and nonviable tissue. The nonviable tissue appears to be diminishing in amount. Dimensions are documented elsewhere. There is no sign of infection or cellulitis. There is now a new wound on the patient's right anterolateral calf, which is full-thickness, and small in size. There is a moderate amount of bioburden. Dimensions are documented elsewhere. There is no sign of infection or cellulitis. Hair: normal Neuro oriented x3, CN's II-XII intact bilaterally, moves all extremities, no focal motor deficits and no sensory deficits noted Sensorium / Orientation: awake, alert, oriented to person, oriented to place and oriented to time Psych Appearance: grossly normal Speech: normal speech Thought Content: normal thought content Judgement: judgement good Debridement Note Debridement Note Wound debrided: Left lateral calf wound Laterality: Left Type of Debridement: Excisional debridement Anesthesia Used: 5% Lidocaine Gel and Cetacaine Depth: Down to and including healthy tissue and in the subcutaneous layer Percentage of wound debrided: 100 Instrument Used: 5mm curette and - ([employer] ultrasounic debridement device) Tissue Removed: Bioburden and nonviable tissue Severity: Fat Layer Exposed Amount of bleeding with debridement: Mild Bleeding Controlled with: Compression and gauze Patient tolerated procedure: Patient did not tolerate procedure well Debridement Free Text: The patient continues to have difficulty in tolerating the debridements of her calf wounds. She experiences a great deal of discomfort. We have used both lidocaine gel and Cetacaine spray to enhance patient comfort. Both standard mechanical debridement and Misonix ultrasonic debridement have been performed. Post-Debridement Measurements and Additional Note: Post-Debridement Measurements/Treatment WC - Nurse 1 - General Ulcer Assessment Start: 07/29/24 14:06 Freq: Status: Active Protocol: [email or web address].[email or web address] Activity Type Activity Date Activity User E-sign Co-sign Detail Recorded Client Recorded Date Recorded By Document 07/29/24 14:06 RB [id number] 07/29/24 14:12 RB Document 08/05/24 13:26 KW [id number] 08/05/24 13:50 KW Document 08/05/24 14:04 DS [id number] 08/05/24 14:22 DS Document 08/12/24 14:06 RB [id number] 08/12/24 14:24 RB Document 08/19/24 14:36 KW [id number] 08/19/24 14:55 KW 07/29/24 08/05/24 08/05/24 14:06 13:26 14:04 - Today's Visit Information Type of service Follow-up Visit Follow-up Visit (Physician/FLOOR REFINISHER (Physician/FLOOR REFINISHER ) ) Arrival Mode Ambulatory,Cane Ambulatory,Cane Transfer Assistance Manual Accompanied by Patient Identification Verified (Name & Yes Yes ) Patient Requires Transmission-Based No Precautions Height and Weight Body Mass Index (BMI) 24.8 24.8 24.8 BMI Classification Normal Normal Normal Vital Signs Temperature (97.8 F-99.1 F) 97 F L 97.6 F L Temperature Source Temporal Temporal Pulse Rate (60-100) 62 64 Pulse Location Monitor Monitor Monitor Respiratory Rate (12-18) 18 18 20 H Respiratory rate source Observation Observation Observation Pulse Oximetry 97 Oxygen Delivery Method Room Air Room Air Blood Pressure (90/60-120/80) 158/65 H 146/56 H Blood Pressure Mean 96 86 Source Monitor Monitor Monitor Position Semi-Fowlers Semi-Fowlers Sitting Blood Pressure Location Left Arm Left Arm Right Arm History Since Last Visit- (Skip if this is Patient's initial visit) Have you changed medications since your No No last visit? Any new allergies or adverse reactions No No Had a fall/change in ADL's that may No No increase risk of falls Signs or symptoms of abuse and/or No No neglect since last visit Have you been in the hospital since your No No last visit? Has dressing in place as prescribed Yes Yes Has compression in place as prescribed No Yes Has offloadiing in place as prescribed No N/A Experienced any changes in pain level or No No management Left Footwear Regular Shoe Right Footwear Regular Shoe Pain Scale: 0-10 Numeric Is Patient Pain Free? No No No BILAT LE -Description Aching Sharp,Aching -Intensity 8 10 8 -Duration (hours) Acute Chronic -Pain Behavior Withdrawal from Crying, Touch Irritability, Facial Grimacing -Pain Aggravating Factors Exercise/ Activity, Walking, Debridement -Alleviating Factors/Interventions Medication Medication Will continue to monitor, Emotional Support -Effectiveness of Alleviating Factor/ Minimally Intervention effective -Comments feels pulling from dressing 08/12/24 08/19/24 14:06 14:36 WC - Today's Visit Information Type of service Follow-up Visit Follow-up Visit (Physician/FLOOR REFINISHER (Physician/FLOOR REFINISHER ) ) Arrival Mode Ambulatory Ambulatory,Cane Transfer Assistance None Accompanied by Patient Identification Verified (Name & Yes Yes ) Patient Requires Transmission-Based No Precautions Height and Weight Body Mass Index (BMI) 24.8 24.8 BMI Classification Normal Normal Vital Signs Temperature (97.8 F-99.1 F) 96.5 F L 98.5 F Temperature Source Temporal Temporal Pulse Rate (60-100) 88 67 Pulse Location Monitor Monitor Respiratory Rate (12-18) 18 18 Respiratory rate source Observation Observation Pulse Oximetry Oxygen Delivery Method Room Air Blood Pressure (90/60-120/80) 180/88 H 150/93 H Blood Pressure Mean 118 112 Source Monitor Monitor Position Semi-Fowlers Semi-Fowlers Blood Pressure Location Left Arm Left Arm History Since Last Visit- (Skip if this is Patient's initial visit) Have you changed medications since your No No last visit? Any new allergies or adverse reactions No No Had a fall/change in ADL's that may No No increase risk of falls Signs or symptoms of abuse and/or No No neglect since last visit Have you been in the hospital since your No Yes last visit? Has dressing in place as prescribed Yes Yes Has compression in place as prescribed Yes N/A Has offloadiing in place as prescribed No N/A Experienced any changes in pain level or No No management Left Footwear Regular Shoe Right Footwear Regular Shoe Pain Scale: 0-10 Numeric Is Patient Pain Free? No Yes BILAT LE -Description Burning,Aching -Intensity 8 -Duration (hours) -Pain Behavior Irritability, Withdrawal from Touch -Pain Aggravating Factors Exercise/ Activity, Debridement -Alleviating Factors/Interventions Medication -Effectiveness of Alleviating Factor/ Minimally Intervention effective -Comments WC - Nurse 1 - General Ulcer Measurement Start: 07/29/24 14:06 Freq: Status: Active Protocol: Activity Type Activity Date Activity User E-sign Co-sign Detail Recorded Client Recorded Date Recorded By Document 07/29/24 14:06 RB [id number] 07/29/24 14:12 RB Document 08/05/24 13:26 KW [id number] 08/05/24 13:50 KW Document 08/12/24 14:06 RB [id number] 08/12/24 14:24 RB Document 08/19/24 14:36 KW [id number] 08/19/24 14:55 KW 07/29/24 08/05/24 08/12/24 14:06 13:26 14:06 Wound Center Nurse 1 #4 right knee cluster -Combined with other wound No No -Current Size (cm) - Length 0.1 0.1 0.1 -Current Size (cm) - Width 0.1 0.1 0.1 -Current Size (cm) - Depth 0.1 0.1 0.1 -Total Square Cm 0.01 0.01 0.01 -Photo Taken Yes Yes -Tunneling No No -Undermining/Tunneling No No -Circular Undermining No No -Exudate Amt None Present Small Small -Exudate Type Serosanguineous Serosanguineous -Wound Margin Distinct, Distinct, Distinct, Outline Outline Outline Attached Attached Attached -Granulation Amt Large (67-100%) Small (1-33%) Medium (34-66%) -Granulation Quality [place] -Slough/Fibrin Yes Yes -Necrosis Amt Small (1-33%) Large (67-100%) Medium (34-66%) -Necrotic Tissue Type Adherent Slough Adherent Slough Adherent Slough -Structure Exposed N/A N/A -Texture (Nhung-wound Skin Appearance) Assessed, Assessed Assessed Scarring -Moisture (Nhung-wound Skin Appearance) Assessed Assessed Assessed -Color (Nhung-wound Skin Appearance) Assessed Assessed, Assessed Erythema -Temperature (Nhung-wound Skin No Abnormality No Abnormality No Abnormality Appearance) (Pt Warm) (Pt Warm) (Pt Warm) -Tenderness on Palpation (Nhung-wound No No No Skin Appearance) -Ulcer Cleansing Wound Cleanser Soap and Water Wound Cleanser -Foul Odor after Cleansing No No No -Anesthetic Used 5% Lidocaine 4% Lidocaine 4% Lidocaine Gel Solution,5% Solution,5% Lidocaine Gel, Lidocaine Gel Cetacaine #9 RT LAT LE INF -Current Size (cm) - Length -Current Size (cm) - Width -Current Size (cm) - Depth -Total Square Cm -Exudate Amt -Exudate Type -Wound Margin -Necrosis Amt -Necrotic Tissue Type -Texture (Nhung-wound Skin Appearance) -Moisture (Nhung-wound Skin Appearance) -Color (Nhung-wound Skin Appearance) -Temperature (Nhung-wound Skin Appearance) -Tenderness on Palpation (Nhung-wound Skin Appearance) -Ulcer Cleansing -Foul Odor after Cleansing -Anesthetic Used #8 Right Lateral Calf -Combined with other wound No No -Current Size (cm) - Length 4.5 0.1 4.6 -Current Size (cm) - Width 3 0.1 3.2 -Current Size (cm) - Depth 0.1 0.1 0.1 -Total Square Cm 13.5 0.01 14.72 -Photo Taken Yes Yes -Tunneling No No -Undermining/Tunneling No No -Circular Undermining No No -Exudate Amt Medium Small Large -Exudate Type Serosanguineous Serosanguineous Serosanguineous -Wound Margin Distinct, Distinct, Distinct, Outline Outline Outline Attached Attached Attached -Granulation Amt Small (1-33%) Small (1-33%) Medium (34-66%) -Granulation Quality [place] -Slough/Fibrin Yes Yes -Necrosis Amt Large (67-100%) Large (67-100%) Small (1-33%) -Necrotic Tissue Type Eschar Adherent Slough Adherent Slough -Structure Exposed N/A N/A -Texture (Nhung-wound Skin Appearance) Scarring Assessed Assessed, Scarring -Moisture (Nhung-wound Skin Appearance) Assessed Assessed Assessed -Color (Nhung-wound Skin Appearance) Assessed Assessed, Assessed, Erythema Hemosiderin Staining -Temperature (Nhung-wound Skin No Abnormality No Abnormality No Abnormality Appearance) (Pt Warm) (Pt Warm) (Pt Warm) -Tenderness on Palpation (Nhung-wound No No No Skin Appearance) -Ulcer Cleansing Wound Cleanser Soap and Water Wound Cleanser -Foul Odor after Cleansing No No No -Anesthetic Used 5% Lidocaine 4% Lidocaine 4% Lidocaine Gel Solution,5% Solution,5% Lidocaine Gel, Lidocaine Gel Cetacaine 6-LEFT LOWER LEG -Combined with other wound No No -Current Size (cm) - Length 2.3 0.1 2.7 -Current Size (cm) - Width 1.5 0.1 2.2 -Current Size (cm) - Depth 0.1 0.1 0.1 -Total Square Cm 3.45 0.01 5.94 -Photo Taken Yes Yes -Tunneling No No -Undermining/Tunneling No No -Circular Undermining No No -Exudate Amt Large Small Large -Exudate Type Serosanguineous Serosanguineous Serosanguineous -Wound Margin Distinct, Distinct, Distinct, Outline Outline Outline Attached Attached Attached -Granulation Amt Medium (34-66%) Small (1-33%) Medium (34-66%) -Granulation Quality [place] -Slough/Fibrin Yes Yes -Necrosis Amt Medium (34-66%) Large (67-100%) Medium (34-66%) -Necrotic Tissue Type Adherent Slough Adherent Slough Adherent Slough -Structure Exposed N/A N/A -Texture (Nhung-wound Skin Appearance) Assessed, Assessed Assessed Scarring -Moisture (Nhung-wound Skin Appearance) Assessed Assessed Assessed -Color (Nhung-wound Skin Appearance) Assessed Assessed, Hemosiderin Erythema Staining -Temperature (Nhung-wound Skin No Abnormality No Abnormality No Abnormality Appearance) (Pt Warm) (Pt Warm) (Pt Warm) -Tenderness on Palpation (Nhung-wound No No No Skin Appearance) -Ulcer Cleansing Wound Cleanser Soap and Water Wound Cleanser -Foul Odor after Cleansing No No No -Anesthetic Used 5% Lidocaine 4% Lidocaine 4% Lidocaine Gel Solution,5% Solution,5% Lidocaine Gel, Lidocaine Gel Cetacaine #3- L KNEE SKIN TEAR POST FALL -Combined with other wound No No -Current Size (cm) - Length 0.1 0.7 -Current Size (cm) - Width 0.1 0.4 -Current Size (cm) - Depth 0.1 0.1 -Total Square Cm 0.01 0.28 -Photo Taken Yes Yes -Tunneling No No -Undermining/Tunneling No No -Circular Undermining No No -Exudate Amt None Present Small Small -Exudate Type Serosanguineous Serosanguineous -Wound Margin Distinct, Distinct, Distinct, Outline Outline Outline Attached Attached Attached -Granulation Amt Medium (34-66%) Small (1-33%) Medium (34-66%) -Granulation Quality [place] -Slough/Fibrin Yes Yes -Necrosis Amt Small (1-33%) Large (67-100%) Small (1-33%) -Necrotic Tissue Type Adherent Slough Adherent Slough Adherent Slough -Structure Exposed N/A N/A -Texture (Nhung-wound Skin Appearance) Assessed, Assessed Assessed, Scarring Localized Edema -Moisture (Nhung-wound Skin Appearance) Assessed Assessed Assessed -Color (Nhung-wound Skin Appearance) Assessed Assessed, Assessed Erythema -Temperature (Nhung-wound Skin No Abnormality No Abnormality No Abnormality Appearance) (Pt Warm) (Pt Warm) (Pt Warm) -Tenderness on Palpation (Nhung-wound No No No Skin Appearance) -Ulcer Cleansing Wound Cleanser Soap and Water Wound Cleanser -Foul Odor after Cleansing No No No -Anesthetic Used 5% Lidocaine 4% Lidocaine 4% Lidocaine Gel Solution,5% Solution,5% Lidocaine Gel, Lidocaine Gel Cetacaine -Wound Comment(s) pt assited to restroom Lower Limb Edema Present Yes Right Calf (cm) 35.5 Right Ankle (cm) 22 Left Calf (cm) 36 Left Ankle (cm) 23.5 08/19/24 14:36 Wound Center Nurse 1 #4 right knee cluster -Combined with other wound -Current Size (cm) - Length -Current Size (cm) - Width -Current Size (cm) - Depth -Total Square Cm -Photo Taken -Tunneling -Undermining/Tunneling -Circular Undermining -Exudate Amt -Exudate Type -Wound Margin -Granulation Amt -Granulation Quality -Slough/Fibrin -Necrosis Amt -Necrotic Tissue Type -Structure Exposed -Texture (Nhung-wound Skin Appearance) -Moisture (Nhung-wound Skin Appearance) -Color (Nhung-wound Skin Appearance) -Temperature (Nhung-wound Skin Appearance) -Tenderness on Palpation (Nhung-wound Skin Appearance) -Ulcer Cleansing -Foul Odor after Cleansing -Anesthetic Used #9 RT LAT LE INF -Current Size (cm) - Length 0.5 -Current Size (cm) - Width 0.5 -Current Size (cm) - Depth 0.1 -Total Square Cm 0.25 -Exudate Amt Medium -Exudate Type Serosanguineous -Wound Margin Distinct, Outline Attached -Necrosis Amt Large (67-100%) -Necrotic Tissue Type Adherent Slough -Texture (Nhung-wound Skin Appearance) Assessed -Moisture (Nhung-wound Skin Appearance) Assessed, Maceration -Color (Nhung-wound Skin Appearance) Assessed -Temperature (Nhung-wound Skin No Abnormality Appearance) (Pt Warm) -Tenderness on Palpation (Nhung-wound No Skin Appearance) -Ulcer Cleansing Soap and Water -Foul Odor after Cleansing No -Anesthetic Used 5% Lidocaine Gel #8 Right Lateral Calf -Combined with other wound -Current Size (cm) - Length 5.5 -Current Size (cm) - Width 3.5 -Current Size (cm) - Depth 0.3 -Total Square Cm 19.25 -Photo Taken -Tunneling -Undermining/Tunneling -Circular Undermining -Exudate Amt Medium -Exudate Type Serosanguineous -Wound Margin Distinct, Outline Attached -Granulation Amt Medium (34-66%) -Granulation Quality Red -Slough/Fibrin -Necrosis Amt Medium (34-66%) -Necrotic Tissue Type Adherent Slough -Structure Exposed -Texture (Nhung-wound Skin Appearance) Assessed -Moisture (Nhung-wound Skin Appearance) Assessed -Color (Nhung-wound Skin Appearance) Assessed, Erythema -Temperature (Nhung-wound Skin No Abnormality Appearance) (Pt Warm) -Tenderness on Palpation (Nhung-wound No Skin Appearance) -Ulcer Cleansing Soap and Water -Foul Odor after Cleansing No -Anesthetic Used 4% Lidocaine Solution,5% Lidocaine Gel 6-LEFT LOWER LEG -Combined with other wound -Current Size (cm) - Length 6.7 -Current Size (cm) - Width 3.8 -Current Size (cm) - Depth 0.4 -Total Square Cm 25.46 -Photo Taken -Tunneling -Undermining/Tunneling -Circular Undermining -Exudate Amt Medium -Exudate Type Serosanguineous -Wound Margin Distinct, Outline Attached -Granulation Amt Medium (34-66%) -Granulation Quality Red -Slough/Fibrin -Necrosis Amt Medium (34-66%) -Necrotic Tissue Type Adherent Slough -Structure Exposed -Texture (Nhung-wound Skin Appearance) Assessed -Moisture (Nhung-wound Skin Appearance) Assessed -Color (Nhung-wound Skin Appearance) Assessed, Erythema -Temperature (Nhung-wound Skin No Abnormality Appearance) (Pt Warm) -Tenderness on Palpation (Nhung-wound No Skin Appearance) -Ulcer Cleansing Soap and Water -Foul Odor after Cleansing No -Anesthetic Used 4% Lidocaine Solution,5% Lidocaine Gel #3- L KNEE SKIN TEAR POST FALL -Combined with other wound -Current Size (cm) - Length 0.1 -Current Size (cm) - Width 0.1 -Current Size (cm) - Depth 0.1 -Total Square Cm 0.01 -Photo Taken -Tunneling -Undermining/Tunneling -Circular Undermining -Exudate Amt -Exudate Type -Wound Margin -Granulation Amt -Granulation Quality -Slough/Fibrin -Necrosis Amt -Necrotic Tissue Type -Structure Exposed -Texture (Hnung-wound Skin Appearance) Assessed -Moisture (Nhung-wound Skin Appearance) Assessed -Color (Nhung-wound Skin Appearance) Assessed -Temperature (Nhung-wound Skin No Abnormality Appearance) (Pt Warm) -Tenderness on Palpation (Nhung-wound No Skin Appearance) -Ulcer Cleansing -Foul Odor after Cleansing -Anesthetic Used -Wound Comment(s) Lower Limb Edema Present Right Calf (cm) Right Ankle (cm) Left Calf (cm) Left Ankle (cm) WC - Nurse 2 - General Ulcer CM Notes Start: 07/29/24 14:06 Freq: Status: Active Protocol: Activity Type Activity Date Activity User E-sign Co-sign Detail Recorded Client Recorded Date Recorded By Document 07/29/24 14:21 DS [id number] 07/29/24 14:35 DS Document 08/05/24 14:00 DS [id number] 08/05/24 16:16 DS Document 08/12/24 14:35 DS [id number] 08/12/24 14:52 DS Edit Result 08/12/24 14:35 DS (1) 000 08/12/24 15:45 DS Document 08/19/24 15:08 DS [id number] 08/19/24 15:20 DS (1) #8 Right Lateral Calf - Post Debridement (cm) - Length => 4.9 - Post Debridement (cm) - Width => 3.5 - Post Debridement (cm) - Depth => 0.2 - Total Square (Post) (cm) => 17.15 - Area of Debridement (cm) - Length => 4.9 - Area of Debridement (cm) - Width => 3.5 - Total Square (Area) (cm) => 17.15 6-LEFT LOWER LEG - Post Debridement (cm) - Length => 6.5 - Post Debridement (cm) - Width => 2.7 - Post Debridement (cm) - Depth => 0.2 - Total Square (Post) (cm) => 17.55 - Area of Debridement (cm) - Length => 6.5 - Area of Debridement (cm) - Width => 2.7 - Total Square (Area) (cm) => 17.55 - Treatment Response Procedure => Procedure Not Tolerated Well => Tolerated Well - Debridement, SubQ, ea addt'l 20sq cm => 1 or part thereof - Wound Comment(s) => misonix used on bl LE #3- L KNEE SKIN TEAR POST FALL - Post Debridement (cm) - Length => 1.2 - Post Debridement (cm) - Width => 0.5 - Post Debridement (cm) - Depth => 0.1 - Total Square (Post) (cm) => 0.60 - Area of Debridement (cm) - Length => 1.2 - Area of Debridement (cm) - Width => 0.5 - Total Square (Area) (cm) => 0.60 - Tunneling => No - Undermining/Tunneling => No - Circular Undermining => No - Wound/Ulcer Outcome => Not Healed 07/29/24 08/05/24 08/12/24 14:21 14:00 14:35 Wound Center Nurse 2 #4 right knee cluster -Time 14:21 14:00 -Correct Patient Yes -Correct Side, Site, Position Yes -Correct Procedure Yes -Procedure Performed Yes No No -Type of Procedure Debridement -Clinical Debridement Subcutaneous -Tissue Removed Subcutaneous -Post Debridement (cm) - Length 1.0 0.4 -Post Debridement (cm) - Width 1.0 3.0 -Post Debridement (cm) - Depth 0.1 0.1 -Total Square (Post) (cm) 1.00 1.20 -Area of Debridement (cm) - Length 1.0 0.4 -Area of Debridement (cm) - Width 1.0 3.0 -Total Square (Area) (cm) 1.00 1.20 -Tunneling No No -Undermining/Tunneling No No -Circular Undermining No No -Wound/Ulcer Outcome Not Healed Healed- Epithelialized -Ulcer Cleansing Rinsed/ Irrigated with Saline -Bioengineered Tissue No -Bleeding Controlled with Pressure -Treatment Response Procedure Not Tolerated Well -Debridement - Subq, 1st 20sq cm No #9 RT LAT LE INF -Time -Correct Patient -Correct Side, Site, Position -Correct Procedure -Procedure Performed -Type of Procedure -Clinical Debridement -Tissue Removed -Post Debridement (cm) - Length -Post Debridement (cm) - Width -Post Debridement (cm) - Depth -Total Square (Post) (cm) -Area of Debridement (cm) - Length -Area of Debridement (cm) - Width -Total Square (Area) (cm) -Tunneling -Undermining/Tunneling -Circular Undermining -Wound/Ulcer Outcome -Ulcer Cleansing -Bioengineered Tissue -Bleeding Controlled with -Treatment Response -Debridement - Subq, 1st 20sq cm -Wound Comment(s) #8 Right Lateral Calf -Time 14:21 14:00 14:40 -Correct Patient Yes Yes -Correct Side, Site, Position Yes Yes -Correct Procedure Yes Yes -Procedure Performed Yes No Yes -Type of Procedure Debridement Debridement -Clinical Debridement Subcutaneous Subcutaneous -Tissue Removed Subcutaneous Subcutaneous -Post Debridement (cm) - Length 4.5 4.5 4.9 -Post Debridement (cm) - Width 3.7 3.5 3.5 -Post Debridement (cm) - Depth 0.1 0.1 0.2 -Total Square (Post) (cm) 16.65 15.75 17.15 -Area of Debridement (cm) - Length 4.5 4.5 4.9 -Area of Debridement (cm) - Width 3.7 3.5 3.5 -Total Square (Area) (cm) 16.65 15.75 17.15 -Tunneling No No No -Undermining/Tunneling No No No -Circular Undermining No No No -Wound/Ulcer Outcome Not Healed Not Healed Not Healed -Ulcer Cleansing Rinsed/ Rinsed/ Irrigated with Irrigated with Saline Saline -Bioengineered Tissue No No -Bleeding Controlled with Pressure Pressure -Treatment Response Procedure Procedure Not Tolerated Well Tolerated Well -Debridement - Subq, 1st 20sq cm Yes No -Debridement, SubQ, ea addt'l 20sq cm 1 or part thereof -Wound Comment(s) 6-LEFT LOWER LEG -Time 14: 14:00 14:39 -Correct Patient Yes Yes -Correct Side, Site, Position Yes Yes -Correct Procedure Yes Yes -Procedure Performed Yes No Yes -Type of Procedure Debridement Debridement -Clinical Debridement Subcutaneous Subcutaneous -Tissue Removed Subcutaneous Subcutaneous -Post Debridement (cm) - Length 3.5 2.5 6.5 -Post Debridement (cm) - Width 1.5 2.0 2.7 -Post Debridement (cm) - Depth 1.0 0.2 0.2 -Total Square (Post) (cm) 5.25 5.00 17.55 -Area of Debridement (cm) - Length 3.5 2.5 6.5 -Area of Debridement (cm) - Width 1.5 2.0 2.7 -Total Square (Area) (cm) 5.25 5.00 17.55 -Tunneling No No No -Undermining/Tunneling No No No -Circular Undermining No No No -Wound/Ulcer Outcome Not Healed Not Healed Not Healed -Ulcer Cleansing Rinsed/ Irrigated with Saline -Bioengineered Tissue No -Bleeding Controlled with Pressure,Silver Pressure Nitrate -Treatment Response Procedure Not Procedure Not Tolerated Well Tolerated Well -Debridement - Subq, 1st 20sq cm No Yes -Debridement, SubQ, ea addt'l 20sq cm 1 or part thereof -Wound Comment(s) misonix used on bl LE #3- L KNEE SKIN TEAR POST FALL -Time : 14:00 14:38 -Correct Patient Yes -Correct Side, Site, Position Yes -Correct Procedure Yes -Procedure Performed Yes No -Type of Procedure Debridement -Clinical Debridement Subcutaneous -Tissue Removed Subcutaneous -Post Debridement (cm) - Length 1.6 1.0 1.2 -Post Debridement (cm) - Width 1 0.5 0.5 -Post Debridement (cm) - Depth 0.1 0.1 0.1 -Total Square (Post) (cm) 1.6 0.50 0.60 -Area of Debridement (cm) - Length 1.6 1.0 1.2 -Area of Debridement (cm) - Width 1.0 0.5 0.5 -Total Square (Area) (cm) 1.60 0.50 0.60 -Tunneling No No No -Undermining/Tunneling No No No -Circular Undermining No No No -Wound/Ulcer Outcome Not Healed Not Healed Not Healed -Ulcer Cleansing Rinsed/ Irrigated with Saline -Bioengineered Tissue No -Bleeding Controlled with Pressure -Treatment Response Procedure Tolerated Well -Debridement - Subq, 1st 20sq cm No Pain Scale: 0-10 Numeric Is Patient Pain Free? No No No BILAT LE -Description Sharp,Throbbing Sharp,Aching Sharp,Throbbing ,Aching -Intensity 8 10 10 -Duration (hours) Chronic Chronic Chronic -Pain Behavior Crying, Moaning,Crying, Irritability Irritability -Pain Aggravating Factors Debridement Debridement -Alleviating Factors/Interventions Will continue Will continue Will continue to monitor, to monitor, to monitor, Emotional Emotional Emotional Support Support Support -Comments cetacaine spray cetecaine spray left knee -Comments cetecaine spray 08/19/24 15:08 Wound Center Nurse 2 #4 right knee cluster -Time -Correct Patient -Correct Side, Site, Position -Correct Procedure -Procedure Performed -Type of Procedure -Clinical Debridement -Tissue Removed -Post Debridement (cm) - Length -Post Debridement (cm) - Width -Post Debridement (cm) - Depth -Total Square (Post) (cm) -Area of Debridement (cm) - Length -Area of Debridement (cm) - Width -Total Square (Area) (cm) -Tunneling -Undermining/Tunneling -Circular Undermining -Wound/Ulcer Outcome -Ulcer Cleansing -Bioengineered Tissue -Bleeding Controlled with -Treatment Response -Debridement - Subq, 20sq cm #9 RT LAT LE INF -Time 15:05 -Correct Patient Yes -Correct Side, Site, Position Yes -Correct Procedure Yes -Procedure Performed Yes -Type of Procedure Debridement -Clinical Debridement Subcutaneous -Tissue Removed Subcutaneous -Post Debridement (cm) - Length 0.5 -Post Debridement (cm) - Width 0.6 -Post Debridement (cm) - Depth 0.1 -Total Square (Post) (cm) 0.30 -Area of Debridement (cm) - Length 0.5 -Area of Debridement (cm) - Width 0.6 -Total Square (Area) (cm) 0.30 -Tunneling No -Undermining/Tunneling No -Circular Undermining No -Wound/Ulcer Outcome Not Healed -Ulcer Cleansing Rinsed/ Irrigated with Saline -Bioengineered Tissue No -Bleeding Controlled with Pressure -Treatment Response Procedure Tolerated Well -Debridement - Subq, 1st 20sq cm No -Wound Comment(s) MISONIX USED #8 Right Lateral Calf -Time 15:05 -Correct Patient Yes -Correct Side, Site, Position Yes -Correct Procedure Yes -Procedure Performed Yes -Type of Procedure Debridement -Clinical Debridement Subcutaneous -Tissue Removed Subcutaneous -Post Debridement (cm) - Length 5.0 -Post Debridement (cm) - Width 4.0 -Post Debridement (cm) - Depth 0.2 -Total Square (Post) (cm) 20.00 -Area of Debridement (cm) - Length 5.0 -Area of Debridement (cm) - Width 4.0 -Total Square (Area) (cm) 20.00 -Tunneling No -Undermining/Tunneling No -Circular Undermining No -Wound/Ulcer Outcome Not Healed -Ulcer Cleansing Rinsed/ Irrigated with Saline -Bioengineered Tissue No -Bleeding Controlled with Pressure -Treatment Response Procedure Tolerated Well -Debridement - Subq, 1st 20sq cm No -Debridement, SubQ, ea addt'l 20sq cm or part thereof -Wound Comment(s) MISONIX USED 6-LEFT LOWER LEG -Time 15:05 -Correct Patient Yes -Correct Side, Site, Position Yes -Correct Procedure Yes -Procedure Performed Yes -Type of Procedure Debridement -Clinical Debridement Subcutaneous -Tissue Removed Subcutaneous -Post Debridement (cm) - Length 6.0 -Post Debridement (cm) - Width 3.4 -Post Debridement (cm) - Depth 0.4 -Total Square (Post) (cm) 20.40 -Area of Debridement (cm) - Length 6.0 -Area of Debridement (cm) - Width 3.4 -Total Square (Area) (cm) 20.40 -Tunneling No -Undermining/Tunneling No -Circular Undermining No -Wound/Ulcer Outcome Not Healed -Ulcer Cleansing Rinsed/ Irrigated with Saline -Bioengineered Tissue No -Bleeding Controlled with Pressure -Treatment Response Procedure Tolerated Well -Debridement - Subq, 1st 20sq cm Yes -Debridement, SubQ, ea addt'l 20sq cm 2 or part thereof -Wound Comment(s) MISONIX USED #3- L KNEE SKIN TEAR POST FALL -Time 15:09 -Correct Patient -Correct Side, Site, Position -Correct Procedure -Procedure Performed -Type of Procedure -Clinical Debridement -Tissue Removed -Post Debridement (cm) - Length -Post Debridement (cm) - Width -Post Debridement (cm) - Depth -Total Square (Post) (cm) -Area of Debridement (cm) - Length -Area of Debridement (cm) - Width -Total Square (Area) (cm) -Tunneling -Undermining/Tunneling -Circular Undermining -Wound/Ulcer Outcome Healed- Epithelialized -Ulcer Cleansing -Bioengineered Tissue -Bleeding Controlled with -Treatment Response -Debridement - Subq, 1st 20sq cm Pain Scale: 0-10 Numeric Is Patient Pain Free? No BILAT LE -Description Aching -Intensity 6 -Duration (hours) Chronic -Pain Behavior -Pain Aggravating Factors Debridement -Alleviating Factors/Interventions Medication -Comments CETECAINE SPRAY left knee -Comments WC - Nurse 3 - General Ulcer D/C NN Start: 07/29/24 14:06 Freq: Status: Active Protocol: Activity Type Activity Date Activity User E-sign Co-sign Detail Recorded Client Recorded Date Recorded By Document 07/29/24 14:40 KW [id number] 07/29/24 14:41 KW Document 08/05/24 14:26 RB [id number] 08/05/24 14:30 RB Document 08/12/24 15:20 RB [id number] 08/12/24 15:22 RB Document 08/19/24 15:47 RB [id number] 08/19/24 15:51 RB 07/29/24 08/05/24 08/12/24 14:40 14:26 15:20 Wound Care Center Nurse 3 #4 right knee cluster -Primary Dressing Applied NonAdherent Contact Layer -Other Dressing hydrogel -Primary Dressing Covered/Secured with Dry Gauze Dry Gauze,Dry Gauze & Roll Gauze,Secured with Tape #9 RT LAT LE INF -Primary Dressing Applied -Other Dressing -Primary Dressing Covered/Secured with -Other Covering #8 Right Lateral Calf -Ulcer Cleansing Wound Cleanser -Primary Dressing Applied NonAdherent Contact Layer -Other Dressing hydrogel hydrogel -Primary Dressing Covered/Secured with Dry Gauze & Dry Gauze,Dry Dry Gauze,Dry Roll Gauze, Gauze & Roll Gauze & Roll Secured with Gauze,Secured Gauze,Secured Tape with Tape with Tape 6-LEFT LOWER LEG -Primary Dressing Applied -Other Dressing hydrogel hydrogel -Primary Dressing Covered/Secured with Dry Gauze Dry Gauze,Dry Dry Gauze,Dry Gauze & Roll Gauze & Roll Gauze,Secured Gauze,Secured with Tape with Tape #3- L KNEE SKIN TEAR POST FALL -Primary Dressing Applied NonAdherent Contact Layer -Other Dressing hydrogel hydrogel -Primary Dressing Covered/Secured with Dry Gauze & Dry Gauze,Dry Dry Gauze, Roll Gauze, Gauze & Roll Secured with Secured with Gauze,Secured Tape Tape with Tape Right -Tubular Bandage Single Layer Single Layer Single Layer -Size of Tubigrip Used Size E Size E Size E -Size E ($) 1 1 1 Left -Tubular Bandage Single Layer Single Layer Single Layer -Size of Tubigrip Used Size E Size E Size E -Size E ($) 1 1 1 Treatment Response Procedure Procedure Tolerated Well Tolerated Well Pain Scale: 0-10 Numeric Is Patient Pain Free? Yes Yes No BILAT LE -Description Burning,Aching -Intensity 8 -Alleviating Factors/Interventions Medication -Effectiveness of Alleviating Factor/ Minimally Intervention effective WC - Visit Discharge Discharge Condition Stable Stable Ambulatory Status Wheelchair Wheelchair Transportation Private Auto Private Auto Accompanied by Medication Reconcilliation completed & No No provided to patient/care provider Clinical Summary of Care Provided Yes Yes 08/19/24 15:47 Wound Care Center Nurse 3 #4 right knee cluster -Primary Dressing Applied -Other Dressing -Primary Dressing Covered/Secured with #9 RT LAT LE INF -Primary Dressing Applied NonAdherent Contact Layer -Other Dressing HYDROGEL -Primary Dressing Covered/Secured with Dry Gauze,Dry Gauze & Roll Gauze,Secured with Tape -Other Covering abd PAD #8 Right Lateral Calf -Ulcer Cleansing -Primary Dressing Applied NonAdherent Contact Layer -Other Dressing HYDROGEL -Primary Dressing Covered/Secured with Dry Gauze,Dry Gauze & Roll Gauze,Secured with Tape 6-LEFT LOWER LEG -Primary Dressing Applied NonAdherent Contact Layer -Other Dressing HYDROGEL -Primary Dressing Covered/Secured with Dry Gauze,Dry Gauze & Roll Gauze,Secured with Tape #3- L KNEE SKIN TEAR POST FALL -Primary Dressing Applied NonAdherent Contact Layer -Other Dressing HYDROGEL -Primary Dressing Covered/Secured with Dry Gauze, Secured with Tape Right -Tubular Bandage Single Layer -Size of Tubigrip Used Size E -Size E ($) 1 Left -Tubular Bandage Single Layer -Size of Tubigrip Used Size E -Size E ($) 1 Treatment Response Procedure Tolerated Well Pain Scale: 0-10 Numeric Is Patient Pain Free? Yes JUAN LE -Description -Intensity -Alleviating Factors/Interventions -Effectiveness of Alleviating Factor/ Intervention WC - Visit Discharge Discharge Condition Stable Ambulatory Status Ambulatory,Cane Transportation Private Auto Accompanied by Medication Reconcilliation completed & No provided to patient/care provider Clinical Summary of Care Provided Yes Additional Wound Wound debrided: Right lateral calf wound Laterality: Right Type of Debridement: Excisional debridement Anesthesia Used: 5% Lidocaine Gel and Cetacaine Depth: Down to and including healthy tissue and in the subcutaneous layer Percentage of wound debrided: 100 Instrument Used: 5mm curette and - ([employer] ultrasonic debridement device) Tissue Removed: Bioburden and nonviable tissue Severity: Fat Layer Exposed Amount of bleeding with debridement: Mild Bleeding Controlled with: Compression and gauze Patient tolerated procedure: Patient did not tolerate procedure well Additional Wound Wound debrided: Right anterolateral calf wound Laterality: Right Type of Debridement: Excisional debridement Anesthesia Used: 5% Lidocaine Gel and Cetacaine Depth: Down to and including healthy tissue and in the subcutaneous layer Percentage of wound debrided: 100 Instrument Used: 5mm curette Tissue Removed: Bioburden and nonviable tissue Severity: Fat Layer Exposed Bleeding Controlled with: Compression and gauze Patient tolerated procedure: Patient did not tolerate procedure well Charges/Coding Procedures Integumentary [id number]: [id number] Pili subq tissue 20 sq cm/< (76790; 91275 x 2) Assessment/Plan Assessment/Plan (1) Non-pressure chronic ulcer of right 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: CODE(S): L97.912 - Non-pressure chronic ulcer of unspecified part of right 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 (2) Non-pressure chronic ulcer of left 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: CODE(S): L97.922 - Non-pressure chronic ulcer of unspecified part of left 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 (3) Non-pressure 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 layer exposed: CODE(S): L97.222 - Non-pressure 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 layer exposed (4) Traumatic open wound of left lower leg: CODE(S): S81.802A - Unspecified open wound, left lower leg, initial encounter QUALIFIERS: Encounter type: subsequent encounter Qualified Code(s): S81.802D - Unspecified open wound, left lower leg, subsequent encounter (5) Open wound of knee: CODE(S): S81.009A - Unspecified open wound, unspecified knee, initial encounter QUALIFIERS: Encounter type: subsequent encounter Laterality: left Qualified Code(s): S81.002D - Unspecified open wound, left knee, subsequent encounter (6) Open wound of knee: CODE(S): S81.009A - Unspecified open wound, unspecified knee, initial encounter QUALIFIERS: Encounter type: subsequent encounter Laterality: right Qualified Code(s): S81.001D - Unspecified open wound, right knee, subsequent encounter (7) 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: CODE(S): Z79.01 - senior living (current) use of anticoagulants (8) Hammer toe of right foot: CODE(S): M20.41 - Other hammer toe(s) (acquired), right foot (9) Venous (peripheral) insufficiency: CODE(S): I87.2 - Venous insufficiency (chronic) (peripheral) (10) Atrial fibrillation: CODE(S): I48.91 - Unspecified atrial fibrillation QUALIFIERS: Atrial fibrillation type: permanent Qualified Code(s): I48.21 - Permanent atrial fibrillation (11) Shortness of breath: CODE(S): R06.02 - Shortness of breath (12) CAD (coronary artery disease): CODE(S): I25.10 - Atherosclerotic heart disease of [place] coronary artery without angina pectoris QUALIFIERS: Coronary Disease-Associated Artery/Lesion type: [place] artery [place] vs. transplanted heart: [place] heart Associated angina: without angina Qualified Code(s): I25.10 - Atherosclerotic heart disease of [place] coronary artery without angina pectoris (13) Essential hypertension: CODE(S): I10 - Essential (primary) hypertension (14) Cardiac pacemaker in situ: CODE(S): Z95.0 - Presence of cardiac pacemaker (15) AV block, complete: CODE(S): I44.2 - Atrioventricular block, complete (16) History of radiofrequency ablation procedure for cardiac arrhythmia: CODE(S): Z98.890 - Other specified postprocedural states (17) Hx of atrioventricular node ablation: CODE(S): Z98.890 - Other specified postprocedural states (18) Diastolic congestive heart failure: CODE(S): I50.30 - Unspecified diastolic (congestive) heart failure QUALIFIERS: Heart failure chronicity: chronic Qualified Code(s): I50.32 - Chronic diastolic (congestive) heart failure (19) Pulmonary hypertension: CODE(S): I27.20 - Pulmonary hypertension, unspecified (20) Nonrheumatic mitral valve regurgitation: CODE(S): I34.0 - Nonrheumatic mitral (valve) insufficiency (21) Hyperlipidemia: CODE(S): E78.5 - Hyperlipidemia, unspecified QUALIFIERS: Hyperlipidemia type: unspecified Qualified Code(s): E78.5 - Hyperlipidemia, unspecified (22) GERD (gastroesophageal reflux disease): CODE(S): K21.9 - Gastro-esophageal reflux disease without esophagitis (23) Chronic anemia: CODE(S): D64.9 - Anemia, unspecified (24) Osteoarthritis of both knees: CODE(S): M17.0 - Bilateral primary osteoarthritis of knee PLAN: Plan This is an 84-year-old female who has been recently prone to falls and injuries. She originally injured her left lateral calf on April 04, 2024, and presented for treatment at our facility. The patient demonstrated good progress, but has returned to several scheduled visits with additional traumatic wounds to her extremities. Several of her traumatic wounds have healed, though we continue to treat wounds on both calves. Both right and left knee wounds appear to have completely healed. The patient's remaining wounds are without signs of infection or cellulitis. There is a a large open wound on each lateral calf, as well as a recent traumatic wound on the anterolateral aspect of the right calf. With each of the patient's serial debridements, the patient has expressed discomfort, and displeasure with the debridement process. As result, we have utilized the Misonix ultrasonic debridement device recently relative to the patient's large calf wounds. This debridement was not completely tolerated, but somewhat better than standard mechanical debridements. The patient is to continue with the daily use of collagenase Santyl topically to each of her calf wounds. The patient has been instructed in the appropriate means of application. Adaptic is to be placed over the wounds following administration of the collagenase Santyl. The patient uses a narcotic analgesic at home for her arthritis, which can be expected to assist in pain control relative to her wounds. The patient continues to use compression to her lower extremities by means of Tubigrip's. The patient has been encouraged to maintain optimal nutritional intake, and has been using Shekhar as a supplement. She remains on systemic anticoagulation with warfarin, which is monitored and regulated by the outpatient clinic at [facility]. The patient is to follow-up in 1 week for reevaluation. It is felt that the patient's intolerance to weekly wound debridement is an inhibiting factor relative to the healing process. It is also known that the patient was evaluated at [facility] ER since her last visit for evaluation of shortness of breath and orthopnea. Her ER evaluation resulted in a suggestion to sleep with her head in an elevated position. She was also placed on a fluid restriction, and referred for consultation with Dr. Cuevas (color paste mixing supervisor) and Dr. Corbett (applications support specialist). She has been cautioned to elevate her lower extremities as much as possible, to avoid swelling in her lower extremities. Elevation is to be to heart level, or higher. She admits to relative noncompliance with the wearing of her Tubigrip's. Total time: 26 minutes
[2024-08-26 14:24] VITALS: BP 149/74; PULSE 69; RESP 18; TEMP 36.4; BMI 24.8
--- NOTE | 2024-08-26 21:40 | PCM.WC.HP ---
History of Present Illness Date of Service: 08/26/24 Chief Complaint: Traumatic wounds of the lower extremities History of Wound: This is an 84-year-old female who had [facility] to a traumatic wound on the left lateral calf. The wound occurred as a result of an impact with an open car door. The wound occurred on April 04, 2024, and the patient was initially seen and evaluated in the emergency department at [facility] in [place], [place]. She was treated with a prescription for cephalexin 500 mg p.o. twice daily for total of 10 days, which was completed. She subsequently presented for evaluation and management at the [facility], where initial treatment included the use of Aquacel topically, and Tubigrips. The patient has multiple pre-existing medical problems, which are listed below. These include atrial fibrillation for which she is on systemic anticoagulation therapy with Coumadin. Since the patient's initial intake, she has sustained additional wounds on her lower extremities, which have been treated during her serial visits at the [facility]. Many of these wounds have since healed, but other, more recent wounds, remain. [facility] Medical History Open wound of right upper extremity Non-pressure chronic ulcer of left 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 Non-pressure chronic ulcer of right 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 Open wound of knee Non-pressure 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 layer exposed Open wound of knee Wound, open, elbow Traumatic open wound of left lower leg Osteoarthritis of both knees Chronic anemia GERD (gastroesophageal reflux disease) Atrial fibrillation Pneumonia Hyponatremia CAD (coronary artery disease) Pericardial effusion snf current use of anticoagulant Hyperlipidemia Tear of biceps muscle Osteoarthrosis Diverticulitis Essential hypertension Nonrheumatic mitral valve regurgitation Pulmonary hypertension Diastolic congestive heart failure Longstanding persistent atrial fibrillation AV block, complete Home Medications ?Medication ?Instructions ?Recorded ?Last Taken ?Type docusate sodium 100 mg capsule 100 mg PO BID PRN constipation 06/03/21 12/16/23 History (Stool Softener) Lactobacillus rhamnosus GG 5 1 tab PO DAILY PRN probiotic 02/20/23 Unknown History billion cell chewable tablet (Culturelle Kids Probiotics) ondansetron 4 mg disintegrating 4 mg PO Q6H PRN PRN Nausea #10 tabs 08/17/23 12/16/23 Rx tablet ibandronate 150 mg tablet 150 mg PO QMONTH 01/07/24 Unknown History polyethylene glycol 3350 17 17 g PO DAILY PRN constipation 02/07/24 Unknown History gram/dose oral powder (Miralax) warfarin 1 mg tablet 1 mg PO .COMPLEX anticoagulation 02/07/24 Unknown History naloxegol 25 mg tablet (Movantik) 25 mg PO QAM PRN stomach upset 02/18/24 Unknown History calcitriol 0.25 mcg capsule 0.25 mcg PO DAILY see mar 04/07/24 Unknown History ergocalciferol (vitamin D2) 1,250 1,250 mcg PO QWEEK 04/07/24 Unknown History mcg (50,000 unit) capsule hydrocodone-acetaminophen 5-325mg 1 tab PO TID PRN Pain 04/07/24 Unknown History 5mg-325mg ztrxnhvi-mnq-fayqr acid 0.4 1 tab PO DAILY 04/07/24 Unknown History mg-lycopene 300 mcg-lutein 250 mcg tablet (Centrum Silver) carvedilol 12.5 mg tablet 12.5 mg PO BID htn #180 tabs 04/11/24 Unknown Rx furosemide 40 mg tablet 40 mg PO BID edema, shortness of 07/29/24 Unknown History breath spironolactone 25 mg tablet 25 mg PO QDAY #30 tabs 07/29/24 Unknown Rx sacubitril 49 mg-valsartan 51 mg 1 tab PO BID Pt stopped Losartan 08/19/24 Unknown Rx tablet (Entresto) #60 tabs Allergy/AdvReac Type Severity Reaction Status Date / Time Iodinated Contrast Media Allergy Rash Verified 08/16/24 19:59 (Iodinated Contrast- Oral and IV Dye) iodine Allergy Rash Verified 08/16/24 19:59 Penicillins (PCN) Allergy Rash Verified 08/16/24 19:59 ciprofloxacin (From Cipro) AdvReac Intermediate dizziness Verified 08/16/24 19:59 clindamycin AdvReac Intermediate nausea Verified 08/16/24 19:59 levofloxacin (From Levaquin) AdvReac Intermediate abdominal Verified 08/16/24 19:59 pain, nausea simvastatin AdvReac Intermediate Myalgias Verified 08/16/24 19:59 Family History Father , Age 82 CAD (coronary artery disease) Myocardial infarction CVA (cerebral vascular accident) Hypertension Mother , Age 94 Hypertension CVA (cerebral vascular accident) Sister Cancer Brother , Age 13 months from congenital heart defect Congenital heart defect Surgical History History of left heart catheterization (09/09/03) History of cardioversion (07/12/05) H/O colectomy History of bunionectomy History of appendectomy History of hysterectomy (1990) History of knee replacement (05/2018) History of tilt table evaluation (06/02/04) Hx of atrioventricular node ablation History of radiofrequency ablation procedure for cardiac arrhythmia Cardiac pacemaker in situ Social History household members: spouse Smoking Status: Never smoker alcohol intake: never substance use type: does not use caffeine: No Vital Signs Vital Signs Vital Signs: 08/26/24 14:24 Temperature 97.6 F L Temperature Source Temporal Pulse Rate 69 Respiratory Rate 18 Blood Pressure 149/74 H Blood Pressure Mean 99 Blood Pressure Source Monitor Blood Pressure Position Semi-Fowlers Blood Pressure Location Left Arm Oxygen Delivery Method Room Air Weight Weight: 136 lb Body Mass Index (BMI) 24.8 Physical Exam Const alert, oriented x3, no apparent distress, average body habitus, no limitations and well nourished Constitutional Narrative: The patient's BMI is 24.9. At the time of the patient's initial intake, she appeared calm and with normal demeanor. However, during the course of her Nurse 1 assessment, she appeared to become very apprehensive and anxious. General Appearance: cooperative, comfortable, well kempt and well developed Orientation / Consciousness: awake, oriented to person, oriented to place and oriented to time Exam Limitations: no limitations HEENT normocephalic and head/scalp atraumatic Head and Scalp: normal to inspection, normocephalic and atraumatic Face and Sinus: normal facial exam Nose: external nose normal External Ear: external ears normal Eyes EOMs intact bilaterally General Eye: normal appearance of both eyes Neck full ROM Resp normal respiratory effort, normal air movement, no retractions and no use of accessory muscles Effort and Inspection: able to speak in complete sentences Extremity General Extremity: normal exam except as noted Skin Wounds: wounds noted Wound Narrative: An open wound is noted on the left and right lateral calf. There is a moderate amount of bioburden and necrotic, nonviable tissue. The amount of nonviable tissue appears to be diminishing slowly. Dimensions are documented elsewhere. Both of the patient's prior knee wounds remain healed. The patient now has 2 smaller wounds more distally on the left lower extremity, one which is located laterally and one which is located medially. The dimensions of all of her wounds are documented elsewhere. There is no sign of infection or cellulitis at any of the wound sites. Each of the wounds is full-thickness, extending into the subcutaneous adipose layer. Hair: normal Neuro oriented x3, CN's II-XII intact bilaterally, moves all extremities, no focal motor deficits and no sensory deficits noted Sensorium / Orientation: awake, alert, oriented to person, oriented to place and oriented to time Psych Appearance: grossly normal Speech: normal speech Thought Content: normal thought content Judgement: judgement good Debridement Note Debridement Note Wound debrided: Right lateral calf x 2 Laterality: Right Type of Debridement: Excisional debridement Anesthesia Used: 5% Lidocaine Gel and Cetacaine Depth: Down to and including healthy tissue and in the subcutaneous layer Percentage of wound debrided: 100 Instrument Used: 5mm curette and - (Misonix ultrasonic debridement device) Tissue Removed: Bioburden and nonviable, necrotic tissue Severity: Fat Layer Exposed Amount of bleeding with debridement: Mild Bleeding Controlled with: Compression and gauze Patient tolerated procedure: Patient did not tolerate procedure well Debridement Free Text: Once again, the patient did not tolerate wound debridements well today. She appears to experience a great deal of discomfort, despite the use of topical lidocaine gel and Cetacaine spray. In an effort to mitigate the discomfort, we have again used the Misonix ultrasonic debridement device on the larger ulcerations on each lateral calf. Effort was made to eliminate as much of the nonviable and necrotic material on the surface of the wounds as possible. Nonetheless, due to the limitations of the debridement due to pain, significant amounts of necrotic and nonviable tissue remained. Post-Debridement Measurements and Additional Note: Post-Debridement Measurements/Treatment PAULETTE - Nurse 1 - General Ulcer Assessment Start: 07/29/24 14:06 Freq: Status: Active Protocol: JAVAN Activity Type Activity Date Activity User E-sign Co-sign Detail Recorded Client Recorded Date Recorded By Document 07/29/24 14:06 RB [id number] 07/29/24 14:12 RB Document 08/05/24 13:26 KW [id number] 08/05/24 13:50 KW Document 08/05/24 14:04 DS [id number] 08/05/24 14:22 DS Document 08/12/24 14:06 RB [id number] 08/12/24 14:24 RB Document 08/19/24 14:36 KW [id number] 08/19/24 14:55 KW Document 08/26/24 14:24 KW [id number] 08/26/24 14:41 KW 07/29/24 08/05/24 08/05/24 14:06 13:26 14:04 WC - Today's Visit Information Type of service Follow-up Visit Follow-up Visit (Physician/GLASS DEPOSITION TENDER (Physician/GLASS DEPOSITION TENDER ) ) Arrival Mode Ambulatory,Cane Ambulatory,Cane Transfer Assistance Manual Accompanied by Patient Identification Verified (Name & Yes Yes ) Patient Requires Transmission-Based No Precautions Height and Weight Body Mass Index (BMI) 24.8 24.8 24.8 BMI Classification Normal Normal Normal Vital Signs Temperature (97.8 F-99.1 F) 97 F L 97.6 F L Temperature Source Temporal Temporal Pulse Rate (60-100) 62 64 Pulse Location Monitor Monitor Monitor Respiratory Rate (12-18) 18 18 20 H Respiratory rate source Observation Observation Observation Pulse Oximetry 97 Oxygen Delivery Method Room Air Room Air Blood Pressure (90/60-120/80) 158/65 H 146/56 H Blood Pressure Mean 96 86 Source Monitor Monitor Monitor Position Semi-Fowlers Semi-Fowlers Sitting Blood Pressure Location Left Arm Left Arm Right Arm History Since Last Visit- (Skip if this is Patient's initial visit) Have you changed medications since your No No last visit? Any new allergies or adverse reactions No No Had a fall/change in ADL's that may No No increase risk of falls Signs or symptoms of abuse and/or No No neglect since last visit Have you been in the hospital since your No No last visit? Has dressing in place as prescribed Yes Yes Has compression in place as prescribed No Yes Has offloadiing in place as prescribed No N/A Experienced any changes in pain level or No No management Left Footwear Regular Shoe Right Footwear Regular Shoe Pain Scale: 0-10 Numeric Is Patient Pain Free? No No No BILAT LE -Description Aching Sharp,Aching -Intensity 8 10 8 -Duration (hours) Acute Chronic -Pain Behavior Withdrawal from Crying, Touch Irritability, Facial Grimacing -Pain Aggravating Factors Exercise/ Activity, Walking, Debridement -Alleviating Factors/Interventions Medication Medication Will continue to monitor, Emotional Support -Effectiveness of Alleviating Factor/ Minimally Intervention effective -Comments feels pulling from dressing 08/12/24 08/19/24 08/26/24 14:06 14:36 14:24 WC - Today's Visit Information Type of service Follow-up Visit Follow-up Visit Follow-up Visit (Physician/GLASS DEPOSITION TENDER (Physician/GLASS DEPOSITION TENDER (Physician/GLASS DEPOSITION TENDER ) ) ) Arrival Mode Ambulatory Ambulatory,Cane Ambulatory,Cane Transfer Assistance None Accompanied by Patient Identification Verified (Name & Yes Yes Yes ) Patient Requires Transmission-Based No Precautions Height and Weight Body Mass Index (BMI) 24.8 24.8 24.8 BMI Classification Normal Normal Normal Vital Signs Temperature (97.8 F-99.1 F) 96.5 F L 98.5 F 97.6 F L Temperature Source Temporal Temporal Temporal Pulse Rate (60-100) 88 67 69 Pulse Location Monitor Monitor Monitor Respiratory Rate (12-18) 18 18 18 Respiratory rate source Observation Observation Observation Pulse Oximetry Oxygen Delivery Method Room Air Room Air Blood Pressure (90/60-120/80) 180/88 H 150/93 H 149/74 H Blood Pressure Mean 118 112 99 Source Monitor Monitor Monitor Position Semi-Fowlers Semi-Fowlers Semi-Fowlers Blood Pressure Location Left Arm Left Arm Left Arm History Since Last Visit- (Skip if this is Patient's initial visit) Have you changed medications since your No No No last visit? Any new allergies or adverse reactions No No No Had a fall/change in ADL's that may No No No increase risk of falls Signs or symptoms of abuse and/or No No No neglect since last visit Have you been in the hospital since your No Yes No last visit? Has dressing in place as prescribed Yes Yes Yes Has compression in place as prescribed Yes N/A Yes Has offloadiing in place as prescribed No N/A N/A Experienced any changes in pain level or No No No management Left Footwear Regular Shoe Regular Shoe Right Footwear Regular Shoe Regular Shoe Pain Scale: 0-10 Numeric Is Patient Pain Free? No Yes Yes BILAT LE -Description Burning,Aching -Intensity 8 -Duration (hours) -Pain Behavior Irritability, Withdrawal from Touch -Pain Aggravating Factors Exercise/ Activity, Debridement -Alleviating Factors/Interventions Medication -Effectiveness of Alleviating Factor/ Minimally Intervention effective -Comments WC - Nurse 1 - General Ulcer Measurement Start: 07/29/24 14:06 Freq: Status: Active Protocol: Activity Type Activity Date Activity User E-sign Co-sign Detail Recorded Client Recorded Date Recorded By Document 07/29/24 14:06 RB [id number] 07/29/24 14:12 RB Document 08/05/24 13:26 KW [id number] 08/05/24 13:50 KW Document 08/12/24 14:06 RB [id number] 08/12/24 14:24 RB Document 08/19/24 14:36 KW [id number] 08/19/24 14:55 KW Document 08/26/24 14:24 KW [id number] 08/26/24 14:41 KW 07/29/24 08/05/24 08/12/24 14:06 13:26 14:06 Wound Center Nurse 1 #4 right knee cluster -Combined with other wound No No -Current Size (cm) - Length 0.1 0.1 0.1 -Current Size (cm) - Width 0.1 0.1 0.1 -Current Size (cm) - Depth 0.1 0.1 0.1 -Total Square Cm 0.01 0.01 0.01 -Photo Taken Yes Yes -Tunneling No No -Undermining/Tunneling No No -Circular Undermining No No -Exudate Amt None Present Small Small -Exudate Type Serosanguineous Serosanguineous -Wound Margin Distinct, Distinct, Distinct, Outline Outline Outline Attached Attached Attached -Granulation Amt Large (67-100%) Small (1-33%) Medium (34-66%) -Granulation Quality [place] -Slough/Fibrin Yes Yes -Necrosis Amt Small (1-33%) Large (67-100%) Medium (34-66%) -Necrotic Tissue Type Adherent Slough Adherent Slough Adherent Slough -Structure Exposed N/A N/A -Texture (Nhung-wound Skin Appearance) Assessed, Assessed Assessed Scarring -Moisture (Nhung-wound Skin Appearance) Assessed Assessed Assessed -Color (Nhung-wound Skin Appearance) Assessed Assessed, Assessed Erythema -Temperature (Nhung-wound Skin No Abnormality No Abnormality No Abnormality Appearance) (Pt Warm) (Pt Warm) (Pt Warm) -Tenderness on Palpation (Nhung-wound No No No Skin Appearance) -Ulcer Cleansing Wound Cleanser Soap and Water Wound Cleanser -Foul Odor after Cleansing No No No -Anesthetic Used 5% Lidocaine 4% Lidocaine 4% Lidocaine Gel Solution,5% Solution,5% Lidocaine Gel, Lidocaine Gel Cetacaine #3- L KNEE SKIN TEAR POST FALL -Combined with other wound No No -Current Size (cm) - Length 0.1 0.7 -Current Size (cm) - Width 0.1 0.4 -Current Size (cm) - Depth 0.1 0.1 -Total Square Cm 0.01 0.28 -Photo Taken Yes Yes -Tunneling No No -Undermining/Tunneling No No -Circular Undermining No No -Exudate Amt None Present Small Small -Exudate Type Serosanguineous Serosanguineous -Wound Margin Distinct, Distinct, Distinct, Outline Outline Outline Attached Attached Attached -Granulation Amt Medium (34-66%) Small (1-33%) Medium (34-66%) -Granulation Quality [place] -Slough/Fibrin Yes Yes -Necrosis Amt Small (1-33%) Large (67-100%) Small (1-33%) -Necrotic Tissue Type Adherent Slough Adherent Slough Adherent Slough -Structure Exposed N/A N/A -Texture (Nhung-wound Skin Appearance) Assessed, Assessed Assessed, Scarring Localized Edema -Moisture (Nhung-wound Skin Appearance) Assessed Assessed Assessed -Color (Nhung-wound Skin Appearance) Assessed Assessed, Assessed Erythema -Temperature (Nhung-wound Skin No Abnormality No Abnormality No Abnormality Appearance) (Pt Warm) (Pt Warm) (Pt Warm) -Tenderness on Palpation (Nhung-wound No No No Skin Appearance) -Ulcer Cleansing Wound Cleanser Soap and Water Wound Cleanser -Foul Odor after Cleansing No No No -Anesthetic Used 5% Lidocaine 4% Lidocaine 4% Lidocaine Gel Solution,5% Solution,5% Lidocaine Gel, Lidocaine Gel Cetacaine -Wound Comment(s) pt assited to restroom #9 RT LAT LE INF -Current Size (cm) - Length -Current Size (cm) - Width -Current Size (cm) - Depth -Total Square Cm -Date of Last Picture (Recall this field) -Exudate Amt -Exudate Type -Wound Margin -Granulation Amt -Granulation Quality -Necrosis Amt -Necrotic Tissue Type -Texture (Nhung-wound Skin Appearance) -Moisture (Nhung-wound Skin Appearance) -Color (Nhung-wound Skin Appearance) -Temperature (Nhung-wound Skin Appearance) -Tenderness on Palpation (Nhung-wound Skin Appearance) -Ulcer Cleansing -Foul Odor after Cleansing -Anesthetic Used #8 Right Lateral Calf -Combined with other wound No No -Current Size (cm) - Length 4.5 0.1 4.6 -Current Size (cm) - Width 3 0.1 3.2 -Current Size (cm) - Depth 0.1 0.1 0.1 -Total Square Cm 13.5 0.01 14.72 -Date of Last Picture (Recall this field) -Photo Taken Yes Yes -Tunneling No No -Undermining/Tunneling No No -Circular Undermining No No -Exudate Amt Medium Small Large -Exudate Type Serosanguineous Serosanguineous Serosanguineous -Wound Margin Distinct, Distinct, Distinct, Outline Outline Outline Attached Attached Attached -Granulation Amt Small (1-33%) Small (1-33%) Medium (34-66%) -Granulation Quality Red [place] -Slough/Fibrin Yes Yes -Necrosis Amt Large (67-100%) Large (67-100%) Small (1-33%) -Necrotic Tissue Type Eschar Adherent Slough Adherent Slough -Structure Exposed N/A N/A -Texture (Nhung-wound Skin Appearance) Scarring Assessed Assessed, Scarring -Moisture (Nhung-wound Skin Appearance) Assessed Assessed Assessed -Color (Nhung-wound Skin Appearance) Assessed Assessed, Assessed, Erythema Hemosiderin Staining -Temperature (Nhung-wound Skin No Abnormality No Abnormality No Abnormality Appearance) (Pt Warm) (Pt Warm) (Pt Warm) -Tenderness on Palpation (Nhung-wound No No No Skin Appearance) -Ulcer Cleansing Wound Cleanser Soap and Water Wound Cleanser -Foul Odor after Cleansing No No No -Anesthetic Used 5% Lidocaine 4% Lidocaine 4% Lidocaine Gel Solution,5% Solution,5% Lidocaine Gel, Lidocaine Gel Cetacaine 6-LEFT LOWER LEG -Combined with other wound No No -Current Size (cm) - Length 2.3 0.1 2.7 -Current Size (cm) - Width 1.5 0.1 2.2 -Current Size (cm) - Depth 0.1 0.1 0.1 -Total Square Cm 3.45 0.01 5.94 -Date of Last Picture (Recall this field) -Photo Taken Yes Yes -Tunneling No No -Undermining/Tunneling No No -Circular Undermining No No -Exudate Amt Large Small Large -Exudate Type Serosanguineous Serosanguineous Serosanguineous -Wound Margin Distinct, Distinct, Distinct, Outline Outline Outline Attached Attached Attached -Granulation Amt Medium (34-66%) Small (1-33%) Medium (34-66%) -Granulation Quality Red [place] -Slough/Fibrin Yes Yes -Necrosis Amt Medium (34-66%) Large (67-100%) Medium (34-66%) -Necrotic Tissue Type Adherent Slough Adherent Slough Adherent Slough -Structure Exposed N/A N/A -Texture (Nhung-wound Skin Appearance) Assessed, Assessed Assessed Scarring -Moisture (Nhung-wound Skin Appearance) Assessed Assessed Assessed -Color (Nhung-wound Skin Appearance) Assessed Assessed, Hemosiderin Erythema Staining -Temperature (Nhung-wound Skin No Abnormality No Abnormality No Abnormality Appearance) (Pt Warm) (Pt Warm) (Pt Warm) -Tenderness on Palpation (Nhung-wound No No No Skin Appearance) -Ulcer Cleansing Wound Cleanser Soap and Water Wound Cleanser -Foul Odor after Cleansing No No No -Anesthetic Used 5% Lidocaine 4% Lidocaine 4% Lidocaine Gel Solution,5% Solution,5% Lidocaine Gel, Lidocaine Gel Cetacaine Lower Limb Edema Present Yes Right Calf (cm) 35.5 Right Ankle (cm) 22 Left Calf (cm) 36 Left Ankle (cm) 23.5 08/19/24 08/26/24 14:36 14:24 Wound Center Nurse 1 #4 right knee cluster -Combined with other wound -Current Size (cm) - Length -Current Size (cm) - Width -Current Size (cm) - Depth -Total Square Cm -Photo Taken -Tunneling -Undermining/Tunneling -Circular Undermining -Exudate Amt -Exudate Type -Wound Margin -Granulation Amt -Granulation Quality -Slough/Fibrin -Necrosis Amt -Necrotic Tissue Type -Structure Exposed -Texture (Nhung-wound Skin Appearance) -Moisture (Nhung-wound Skin Appearance) -Color (Nhung-wound Skin Appearance) -Temperature (Nhung-wound Skin Appearance) -Tenderness on Palpation (Nhung-wound Skin Appearance) -Ulcer Cleansing -Foul Odor after Cleansing -Anesthetic Used #3- L KNEE SKIN TEAR POST FALL -Combined with other wound -Current Size (cm) - Length 0.1 -Current Size (cm) - Width 0.1 -Current Size (cm) - Depth 0.1 -Total Square Cm 0.01 -Photo Taken -Tunneling -Undermining/Tunneling -Circular Undermining -Exudate Amt -Exudate Type -Wound Margin -Granulation Amt -Granulation Quality -Slough/Fibrin -Necrosis Amt -Necrotic Tissue Type -Structure Exposed -Texture (Nhung-wound Skin Appearance) Assessed -Moisture (Nhung-wound Skin Appearance) Assessed -Color (Nhung-wound Skin Appearance) Assessed -Temperature (Nhung-wound Skin No Abnormality Appearance) (Pt Warm) -Tenderness on Palpation (Nhung-wound No Skin Appearance) -Ulcer Cleansing -Foul Odor after Cleansing -Anesthetic Used -Wound Comment(s) #9 RT LAT LE INF -Current Size (cm) - Length 0.5 1 -Current Size (cm) - Width 0.5 1 -Current Size (cm) - Depth 0.1 0.1 -Total Square Cm 0.25 1 -Date of Last Picture (Recall this 08/26/24 field) -Exudate Amt Medium Small -Exudate Type Serosanguineous Serosanguineous -Wound Margin Distinct, Distinct, Outline Outline Attached Attached -Granulation Amt Small (1-33%) -Granulation Quality [place],Red -Necrosis Amt Large (67-100%) Large (67-100%) -Necrotic Tissue Type Adherent Slough Adherent Slough -Texture (Nhung-wound Skin Appearance) Assessed Assessed -Moisture (Nhung-wound Skin Appearance) Assessed, Assessed Maceration -Color (Nhung-wound Skin Appearance) Assessed Assessed -Temperature (Nhung-wound Skin No Abnormality No Abnormality Appearance) (Pt Warm) (Pt Warm) -Tenderness on Palpation (Nhung-wound No No Skin Appearance) -Ulcer Cleansing Soap and Water Soap and Water -Foul Odor after Cleansing No No -Anesthetic Used 5% Lidocaine 4% Lidocaine Gel Solution,5% Lidocaine Gel, Cetacaine #8 Right Lateral Calf -Combined with other wound -Current Size (cm) - Length 5.5 5.5 -Current Size (cm) - Width 3.5 3.5 -Current Size (cm) - Depth 0.3 0.2 -Total Square Cm 19.25 19.25 -Date of Last Picture (Recall this 08/26/24 field) -Photo Taken -Tunneling -Undermining/Tunneling -Circular Undermining -Exudate Amt Medium Small -Exudate Type Serosanguineous Serosanguineous -Wound Margin Distinct, Distinct, Outline Outline Attached Attached -Granulation Amt Medium (34-66%) Medium (34-66%) -Granulation Quality Red Red -Slough/Fibrin -Necrosis Amt Medium (34-66%) Medium (34-66%) -Necrotic Tissue Type Adherent Slough Adherent Slough -Structure Exposed -Texture (Nhung-wound Skin Appearance) Assessed Assessed -Moisture (Nhung-wound Skin Appearance) Assessed Assessed -Color (Nhung-wound Skin Appearance) Assessed, Assessed Erythema -Temperature (Nhung-wound Skin No Abnormality No Abnormality Appearance) (Pt Warm) (Pt Warm) -Tenderness on Palpation (Nhung-wound No No Skin Appearance) -Ulcer Cleansing Soap and Water Soap and Water -Foul Odor after Cleansing No No -Anesthetic Used 4% Lidocaine 4% Lidocaine Solution,5% Solution,5% Lidocaine Gel Lidocaine Gel, Cetacaine 6-LEFT LOWER LEG -Combined with other wound -Current Size (cm) - Length 6.7 6 -Current Size (cm) - Width 3.8 4.5 -Current Size (cm) - Depth 0.4 0.2 -Total Square Cm 25.46 27.0 -Date of Last Picture (Recall this 08/26/24 field) -Photo Taken -Tunneling -Undermining/Tunneling -Circular Undermining -Exudate Amt Medium Small -Exudate Type Serosanguineous Serosanguineous -Wound Margin Distinct, Distinct, Outline Outline Attached Attached -Granulation Amt Medium (34-66%) Medium (34-66%) -Granulation Quality Red Red -Slough/Fibrin -Necrosis Amt Medium (34-66%) Medium (34-66%) -Necrotic Tissue Type Adherent Slough Adherent Slough -Structure Exposed -Texture (N[place]-wound Skin Appearance) Assessed Assessed -Moisture ([place]-wound Skin Appearance) Assessed Assessed -Color ([place]-wound Skin Appearance) Assessed, Assessed Erythema -Temperature ([place]-wound Skin No Abnormality No Abnormality Appearance) (Pt Warm) (Pt Warm) -Tenderness on Palpation ([place]-wound No No Skin Appearance) -Ulcer Cleansing Soap and Water Soap and Water -Foul Odor after Cleansing No No -Anesthetic Used 4% Lidocaine 4% Lidocaine Solution,5% Solution,5% Lidocaine Gel Lidocaine Gel, Cetacaine Lower Limb Edema Present Right Calf (cm) Right Ankle (cm) Left Calf (cm) Left Ankle (cm) WC - Nurse 2 - General Ulcer CM Notes Start: 07/29/24 14:06 Freq: Status: Active Protocol: Activity Type Activity Date Activity User E-sign Co-sign Detail Recorded Client Recorded Date Recorded By Document 07/29/24 14:21 DS [id number] 07/29/24 14:35 DS Document 08/05/24 14:00 DS [id number] 08/05/24 16:16 DS Document 08/12/24 14:35 DS [id number] 08/12/24 14:52 DS Edit Result 08/12/24 14:35 DS (1) 000 08/12/24 15:45 DS Document 08/19/24 15:08 DS [id number] 08/19/24 15:20 DS Document 08/26/24 14:53 JF [id number] 08/26/24 15:02 JF (1) #3- L KNEE SKIN TEAR POST FALL - Post Debridement (cm) - Length => 1.2 - Post Debridement (cm) - Width => 0.5 - Post Debridement (cm) - Depth => 0.1 - Total Square (Post) (cm) => 0.60 - Area of Debridement (cm) - Length => 1.2 - Area of Debridement (cm) - Width => 0.5 - Total Square (Area) (cm) => 0.60 - Tunneling => No - Undermining/Tunneling => No - Circular Undermining => No - Wound/Ulcer Outcome => Not Healed #8 Right Lateral Calf - Post Debridement (cm) - Length => 4.9 - Post Debridement (cm) - Width => 3.5 - Post Debridement (cm) - Depth => 0.2 - Total Square (Post) (cm) => 17.15 - Area of Debridement (cm) - Length => 4.9 - Area of Debridement (cm) - Width => 3.5 - Total Square (Area) (cm) => 17.15 6-LEFT LOWER LEG - Post Debridement (cm) - Length => 6.5 - Post Debridement (cm) - Width => 2.7 - Post Debridement (cm) - Depth => 0.2 - Total Square (Post) (cm) => 17.55 - Area of Debridement (cm) - Length => 6.5 - Area of Debridement (cm) - Width => 2.7 - Total Square (Area) (cm) => 17.55 - Treatment Response Procedure => Procedure Not Tolerated Well => Tolerated Well - Debridement, SubQ, ea addt'l 20sq cm => 1 or part thereof - Wound Comment(s) => misonix used on bl LE 07/29/24 08/05/24 08/12/24 14: 14:00 14:35 Wound Center Nurse 2 #4 right knee cluster -Time 14: 14:00 -Correct Patient Yes -Correct Side, Site, Position Yes -Correct Procedure Yes -Procedure Performed Yes No No -Type of Procedure Debridement -Clinical Debridement Subcutaneous -Tissue Removed Subcutaneous -Post Debridement (cm) - Length 1.0 0.4 -Post Debridement (cm) - Width 1.0 3.0 -Post Debridement (cm) - Depth 0.1 0.1 -Total Square (Post) (cm) 1.00 1.20 -Area of Debridement (cm) - Length 1.0 0.4 -Area of Debridement (cm) - Width 1.0 3.0 -Total Square (Area) (cm) 1.00 1.20 -Tunneling No No -Undermining/Tunneling No No -Circular Undermining No No -Wound/Ulcer Outcome Not Healed Healed- Epithelialized -Ulcer Cleansing Rinsed/ Irrigated with Saline -Bioengineered Tissue No -Bleeding Controlled with Pressure -Treatment Response Procedure Not Tolerated Well -Debridement - Subq, 1st 20sq cm No #3- L KNEE SKIN TEAR POST FALL -Time 14: 14:00 14:38 -Correct Patient Yes -Correct Side, Site, Position Yes -Correct Procedure Yes -Procedure Performed Yes No -Type of Procedure Debridement -Clinical Debridement Subcutaneous -Tissue Removed Subcutaneous -Post Debridement (cm) - Length 1.6 1.0 1.2 -Post Debridement (cm) - Width 1 0.5 0.5 -Post Debridement (cm) - Depth 0.1 0.1 0.1 -Total Square (Post) (cm) 1.6 0.50 0.60 -Area of Debridement (cm) - Length 1.6 1.0 1.2 -Area of Debridement (cm) - Width 1.0 0.5 0.5 -Total Square (Area) (cm) 1.60 0.50 0.60 -Tunneling No No No -Undermining/Tunneling No No No -Circular Undermining No No No -Wound/Ulcer Outcome Not Healed Not Healed Not Healed -Ulcer Cleansing Rinsed/ Irrigated with Saline -Bioengineered Tissue No -Bleeding Controlled with Pressure -Treatment Response Procedure Tolerated Well -Debridement - Subq, 1st 20sq cm No 10-RIGHT MEDIAL LEG -Time -Correct Patient -Correct Side, Site, Position -Correct Procedure -Procedure Performed -Type of Procedure -Clinical Debridement -Tissue Removed -Post Debridement (cm) - Length -Post Debridement (cm) - Width -Post Debridement (cm) - Depth -Total Square (Post) (cm) -Area of Debridement (cm) - Length -Area of Debridement (cm) - Width -Total Square (Area) (cm) -Tunneling -Undermining/Tunneling -Circular Undermining -Wound/Ulcer Outcome -Ulcer Cleansing -Foul Odor after Cleansing -Bioengineered Tissue -Bleeding Controlled with -Treatment Response -Offloading -Debridement - Subq, 1st 20sq cm -Debridement, SubQ, ea addt'l 20sq cm or part thereof #9 RT LAT LE INF -Time -Correct Patient -Correct Side, Site, Position -Correct Procedure -Procedure Performed -Type of Procedure -Clinical Debridement -Tissue Removed -Post Debridement (cm) - Length -Post Debridement (cm) - Width -Post Debridement (cm) - Depth -Total Square (Post) (cm) -Area of Debridement (cm) - Length -Area of Debridement (cm) - Width -Total Square (Area) (cm) -Tunneling -Undermining/Tunneling -Circular Undermining -Wound/Ulcer Outcome -Ulcer Cleansing -Foul Odor after Cleansing -Bioengineered Tissue -Bleeding Controlled with -Treatment Response -Offloading -Debridement - Subq, 1st 20sq cm -Wound Comment(s) #8 Right Lateral Calf -Time 14:21 14:00 14:40 -Correct Patient Yes Yes -Correct Side, Site, Position Yes Yes -Correct Procedure Yes Yes -Procedure Performed Yes No Yes -Type of Procedure Debridement Debridement -Clinical Debridement Subcutaneous Subcutaneous -Tissue Removed Subcutaneous Subcutaneous -Post Debridement (cm) - Length 4.5 4.5 4.9 -Post Debridement (cm) - Width 3.7 3.5 3.5 -Post Debridement (cm) - Depth 0.1 0.1 0.2 -Total Square (Post) (cm) 16.65 15.75 17.15 -Area of Debridement (cm) - Length 4.5 4.5 4.9 -Area of Debridement (cm) - Width 3.7 3.5 3.5 -Total Square (Area) (cm) 16.65 15.75 17.15 -Tunneling No No No -Undermining/Tunneling No No No -Circular Undermining No No No -Wound/Ulcer Outcome Not Healed Not Healed Not Healed -Ulcer Cleansing Rinsed/ Rinsed/ Irrigated with Irrigated with Saline Saline -Foul Odor after Cleansing -Bioengineered Tissue No No -Bleeding Controlled with Pressure Pressure -Treatment Response Procedure Procedure Not Tolerated Well Tolerated Well -Offloading -Debridement - Subq, 1st 20sq cm Yes No -Debridement, SubQ, ea addt'l 20sq cm 1 or part thereof -Wound Comment(s) 6-LEFT LOWER LEG -Time 14: 14:00 14:39 -Correct Patient Yes Yes -Correct Side, Site, Position Yes Yes -Correct Procedure Yes Yes -Procedure Performed Yes No Yes -Type of Procedure Debridement Debridement -Clinical Debridement Subcutaneous Subcutaneous -Tissue Removed Subcutaneous Subcutaneous -Post Debridement (cm) - Length 3.5 2.5 6.5 -Post Debridement (cm) - Width 1.5 2.0 2.7 -Post Debridement (cm) - Depth 1.0 0.2 0.2 -Total Square (Post) (cm) 5.25 5.00 17.55 -Area of Debridement (cm) - Length 3.5 2.5 6.5 -Area of Debridement (cm) - Width 1.5 2.0 2.7 -Total Square (Area) (cm) 5.25 5.00 17.55 -Tunneling No No No -Undermining/Tunneling No No No -Circular Undermining No No No -Wound/Ulcer Outcome Not Healed Not Healed Not Healed -Ulcer Cleansing Rinsed/ Irrigated with Saline -Foul Odor after Cleansing -Bioengineered Tissue No -Bleeding Controlled with Pressure,Silver Pressure Nitrate -Treatment Response Procedure Not Procedure Not Tolerated Well Tolerated Well -Offloading -Debridement - Subq, 1st 20sq cm No Yes -Debridement, SubQ, ea addt'l 20sq cm 1 or part thereof -Wound Comment(s) misonix used on bl LE Pain Scale: 0-10 Numeric Is Patient Pain Free? No No No BILAT LE -Description Sharp,Throbbing Sharp,Aching Sharp,Throbbing ,Aching -Intensity 8 10 10 -Duration (hours) Chronic Chronic Chronic -Pain Behavior Crying, Moaning,Crying, Irritability Irritability -Pain Aggravating Factors Debridement Debridement -Alleviating Factors/Interventions Will continue Will continue Will continue to monitor, to monitor, to monitor, Emotional Emotional Emotional Support Support Support -Comments cetacaine spray cetecaine spray left knee -Comments cetecaine spray 08/19/24 08/26/24 15:08 14:53 Wound Center Nurse 2 #4 right knee cluster -Time -Correct Patient -Correct Side, Site, Position -Correct Procedure -Procedure Performed -Type of Procedure -Clinical Debridement -Tissue Removed -Post Debridement (cm) - Length -Post Debridement (cm) - Width -Post Debridement (cm) - Depth -Total Square (Post) (cm) -Area of Debridement (cm) - Length -Area of Debridement (cm) - Width -Total Square (Area) (cm) -Tunneling -Undermining/Tunneling -Circular Undermining -Wound/Ulcer Outcome -Ulcer Cleansing -Bioengineered Tissue -Bleeding Controlled with -Treatment Response -Debridement - Subq, 1st 20sq cm #3- L KNEE SKIN TEAR POST FALL -Time 15:09 -Correct Patient -Correct Side, Site, Position -Correct Procedure -Procedure Performed -Type of Procedure -Clinical Debridement -Tissue Removed -Post Debridement (cm) - Length -Post Debridement (cm) - Width -Post Debridement (cm) - Depth -Total Square (Post) (cm) -Area of Debridement (cm) - Length -Area of Debridement (cm) - Width -Total Square (Area) (cm) -Tunneling -Undermining/Tunneling -Circular Undermining -Wound/Ulcer Outcome Healed- Epithelialized -Ulcer Cleansing -Bioengineered Tissue -Bleeding Controlled with -Treatment Response -Debridement - Subq, 1st 20sq cm 10-RIGHT MEDIAL LEG -Time 15:00 -Correct Patient Yes -Correct Side, Site, Position Yes -Correct Procedure Yes -Procedure Performed Yes -Type of Procedure Debridement -Clinical Debridement Subcutaneous -Tissue Removed Subcutaneous -Post Debridement (cm) - Length 0.7 -Post Debridement (cm) - Width 0.9 -Post Debridement (cm) - Depth 0.1 -Total Square (Post) (cm) 0.63 -Area of Debridement (cm) - Length 0.7 -Area of Debridement (cm) - Width 0.9 -Total Square (Area) (cm) 0.63 -Tunneling No -Undermining/Tunneling No -Circular Undermining No -Wound/Ulcer Outcome Not Healed -Ulcer Cleansing Rinsed/ Irrigated with Saline -Foul Odor after Cleansing No -Bioengineered Tissue No -Bleeding Controlled with Pressure -Treatment Response Procedure Tolerated Well -Offloading No -Debridement - Subq, 1st 20sq cm Yes -Debridement, SubQ, ea addt'l 20sq cm 2 or part thereof #9 RT LAT LE INF -Time 15:05 14:54 -Correct Patient Yes Yes -Correct Side, Site, Position Yes Yes -Correct Procedure Yes Yes -Procedure Performed Yes Yes -Type of Procedure Debridement Debridement -Clinical Debridement Subcutaneous Subcutaneous -Tissue Removed Subcutaneous Subcutaneous -Post Debridement (cm) - Length 0.5 0.8 -Post Debridement (cm) - Width 0.6 1 -Post Debridement (cm) - Depth 0.1 0.1 -Total Square (Post) (cm) 0.30 0.8 -Area of Debridement (cm) - Length 0.5 0.8 -Area of Debridement (cm) - Width 0.6 1.0 -Total Square (Area) (cm) 0.30 0.80 -Tunneling No No -Undermining/Tunneling No No -Circular Undermining No No -Wound/Ulcer Outcome Not Healed Not Healed -Ulcer Cleansing Rinsed/ Rinsed/ Irrigated with Irrigated with Saline Saline -Foul Odor after Cleansing No -Bioengineered Tissue No No -Bleeding Controlled with Pressure Pressure -Treatment Response Procedure Procedure Tolerated Well Tolerated Well -Offloading No -Debridement - Subq, 1st 20sq cm No No -Wound Comment(s) MISONIX USED #8 Right Lateral Calf -Time 15:05 14:57 -Correct Patient Yes Yes -Correct Side, Site, Position Yes Yes -Correct Procedure Yes Yes -Procedure Performed Yes Yes -Type of Procedure Debridement Debridement -Clinical Debridement Subcutaneous Subcutaneous -Tissue Removed Subcutaneous Subcutaneous -Post Debridement (cm) - Length 5.0 5.4 -Post Debridement (cm) - Width 4.0 3.7 -Post Debridement (cm) - Depth 0.2 0.1 -Total Square (Post) (cm) 20.00 19.98 -Area of Debridement (cm) - Length 5.0 5.4 -Area of Debridement (cm) - Width 4.0 3.7 -Total Square (Area) (cm) 20.00 19.98 -Tunneling No No -Undermining/Tunneling No No -Circular Undermining No No -Wound/Ulcer Outcome Not Healed Not Healed -Ulcer Cleansing Rinsed/ Rinsed/ Irrigated with Irrigated with Saline Saline -Foul Odor after Cleansing No -Bioengineered Tissue No No -Bleeding Controlled with Pressure Pressure -Treatment Response Procedure Procedure Tolerated Well Tolerated Well -Offloading No -Debridement - Subq, 1st 20sq cm No No -Debridement, SubQ, ea addt'l 20sq cm or part thereof -Wound Comment(s) MISONIX USED 6-LEFT LOWER LEG -Time 15:05 14:57 -Correct Patient Yes Yes -Correct Side, Site, Position Yes Yes -Correct Procedure Yes Yes -Procedure Performed Yes Yes -Type of Procedure Debridement Debridement -Clinical Debridement Subcutaneous Subcutaneous -Tissue Removed Subcutaneous Subcutaneous -Post Debridement (cm) - Length 6.0 5.8 -Post Debridement (cm) - Width 3.4 4 -Post Debridement (cm) - Depth 0.4 0.2 -Total Square (Post) (cm) 20.40 23.2 -Area of Debridement (cm) - Length 6.0 5.8 -Area of Debridement (cm) - Width 3.4 4 -Total Square (Area) (cm) 20.40 23.2 -Tunneling No No -Undermining/Tunneling No No -Circular Undermining No No -Wound/Ulcer Outcome Not Healed Not Healed -Ulcer Cleansing Rinsed/ Rinsed/ Irrigated with Irrigated with Saline Saline -Foul Odor after Cleansing No -Bioengineered Tissue No No -Bleeding Controlled with Pressure Pressure -Treatment Response Procedure Procedure Tolerated Well Tolerated Well -Offloading No -Debridement - Subq, 1st 20sq cm Yes No -Debridement, SubQ, ea addt'l 20sq cm 2 or part thereof -Wound Comment(s) MISONIX USED Pain Scale: 0-10 Numeric Is Patient Pain Free? No Yes BILAT LE -Description Aching -Intensity 6 -Duration (hours) Chronic -Pain Behavior -Pain Aggravating Factors Debridement -Alleviating Factors/Interventions Medication -Comments CETECAINE SPRAY left knee -Comments WC - Nurse 3 - General Ulcer D/C NN Start: 07/29/24 14:06 Freq: Status: Active Protocol: Activity Type Activity Date Activity User E-sign Co-sign Detail Recorded Client Recorded Date Recorded By Document 07/29/24 14:40 KW [id number] 07/29/24 14:41 KW Document 08/05/24 14:26 RB [id number] 08/05/24 14:30 RB Document 08/12/24 15:20 RB [id number] 08/12/24 15:22 RB Document 08/19/24 15:47 RB [id number] 08/19/24 15:51 RB Document 08/26/24 15:31 RB [id number] 08/26/24 15:34 RB 07/29/24 08/05/24 08/12/24 14:40 14:26 15:20 Wound Care Center Nurse 3 #4 right knee cluster -Primary Dressing Applied NonAdherent Contact Layer -Other Dressing hydrogel -Primary Dressing Covered/Secured with Dry Gauze Dry Gauze,Dry Gauze & Roll Gauze,Secured with Tape #3- L KNEE SKIN TEAR POST FALL -Primary Dressing Applied NonAdherent Contact Layer -Other Dressing hydrogel hydrogel -Primary Dressing Covered/Secured with Dry Gauze & Dry Gauze,Dry Dry Gauze, Roll Gauze, Gauze & Roll Secured with Secured with Gauze,Secured Tape Tape with Tape 10-RIGHT MEDIAL LEG -Other Dressing -Primary Dressing Covered/Secured with #9 RT LAT LE INF -Primary Dressing Applied -Other Dressing -Primary Dressing Covered/Secured with -Other Covering #8 Right Lateral Calf -Ulcer Cleansing Wound Cleanser -Primary Dressing Applied NonAdherent Contact Layer -Other Dressing hydrogel hydrogel -Primary Dressing Covered/Secured with Dry Gauze & Dry Gauze,Dry Dry Gauze,Dry Roll Gauze, Gauze & Roll Gauze & Roll Secured with Gauze,Secured Gauze,Secured Tape with Tape with Tape 6-LEFT LOWER LEG -Primary Dressing Applied -Other Dressing hydrogel hydrogel -Primary Dressing Covered/Secured with Dry Gauze Dry Gauze,Dry Dry Gauze,Dry Gauze & Roll Gauze & Roll Gauze,Secured Gauze,Secured with Tape with Tape Right -Tubular Bandage Single Layer Single Layer Single Layer -Size of Tubigrip Used Size E Size E Size E -Size E ($) 1 1 1 Left -Tubular Bandage Single Layer Single Layer Single Layer -Size of Tubigrip Used Size E Size E Size E -Size E ($) 1 1 1 Treatment Response Procedure Procedure Tolerated Well Tolerated Well Pain Scale: 0-10 Numeric Is Patient Pain Free? Yes Yes No BILAT LE -Description Burning,Aching -Intensity 8 -Alleviating Factors/Interventions Medication -Effectiveness of Alleviating Factor/ Minimally Intervention effective WC - Visit Discharge Discharge Condition Stable Stable Ambulatory Status Wheelchair Wheelchair Transportation Private Auto Private Auto Accompanied by Medication Reconcilliation completed & No No provided to patient/care provider Clinical Summary of Care Provided Yes Yes 08/19/24 08/26/24 15:47 15:31 Wound Care Center Nurse 3 #4 right knee cluster -Primary Dressing Applied -Other Dressing -Primary Dressing Covered/Secured with #3- L KNEE SKIN TEAR POST FALL -Primary Dressing Applied NonAdherent Contact Layer -Other Dressing HYDROGEL -Primary Dressing Covered/Secured with Dry Gauze, Secured with Tape 10-RIGHT MEDIAL LEG -Other Dressing HYDROGEL -Primary Dressing Covered/Secured with Dry Gauze,Dry Gauze & Roll Gauze,Secured with Tape #9 RT LAT LE INF -Primary Dressing Applied NonAdherent Contact Layer -Other Dressing HYDROGEL HYDROGEL -Primary Dressing Covered/Secured with Dry Gauze,Dry Dry Gauze,Dry Gauze & Roll Gauze & Roll Gauze,Secured Gauze,Secured with Tape with Tape -Other Covering abd PAD #8 Right Lateral Calf -Ulcer Cleansing -Primary Dressing Applied NonAdherent Contact Layer -Other Dressing HYDROGEL HYDROGEL -Primary Dressing Covered/Secured with Dry Gauze,Dry Dry Gauze,Dry Gauze & Roll Gauze & Roll Gauze,Secured Gauze,Secured with Tape with Tape 6-LEFT LOWER LEG -Primary Dressing Applied NonAdherent Contact Layer -Other Dressing HYDROGEL HYDROGEL -Primary Dressing Covered/Secured with Dry Gauze,Dry Dry Gauze,Dry Gauze & Roll Gauze & Roll Gauze,Secured Gauze,Secured with Tape with Tape Right -Tubular Bandage Single Layer Single Layer -Size of Tubigrip Used Size E Size E -Size E ($) 1 1 Left -Tubular Bandage Single Layer Single Layer -Size of Tubigrip Used Size E Size E -Size E ($) 1 1 Treatment Response Procedure Procedure Tolerated Well Tolerated Well Pain Scale: 0-10 Numeric Is Patient Pain Free? Yes Yes JUAN HAMMER -Description -Intensity -Alleviating Factors/Interventions -Effectiveness of Alleviating Factor/ Intervention WC - Visit Discharge Discharge Condition Stable Stable Ambulatory Status Ambulatory,Cane Ambulatory,Cane Transportation Private Auto Private Auto Accompanied by Medication Reconcilliation completed & No No provided to patient/care provider Clinical Summary of Care Provided Yes Yes Additional Wound Wound debrided: Left lateral calf x 2 Laterality: Left Type of Debridement: Excisional debridement Anesthesia Used: 5% Lidocaine Gel and Cetacaine Depth: Down to and including healthy tissue and in the subcutaneous layer Percentage of wound debrided: 100 Instrument Used: 5mm curette and - (Sefairaonix ultrasonic debridement device) Severity: Fat Layer Exposed Amount of bleeding with debridement: Mild Bleeding Controlled with: Compression and gauze Patient tolerated procedure: Patient did not tolerate procedure well Lab / Micro Data Labs: Laboratory Tests 08/16/24 21:09 WBC 7.8 Hgb 9.5 L Hct 28.7 L Plt Count 260 Sodium 126 L Potassium 4.9 Chloride 91 L Carbon Dioxide 26.0 BUN 25 H Creatinine 1.18 H Estim Creat Clear Calc 31.59 Glucose 112 H Calcium 9.5 Total Bilirubin 0.70 AST 23 ALT 20 Alkaline Phosphatase 107 Troponin I High Sens 18 Total Protein 7.2 Albumin 3.5 Globulin 3.7 Charges/Coding Multi Select Codes Integumentary Integumentary CPT Codes: 01112 Pili subq tissue 20 sq cm/< (16869 x 1; 48605 x 2) Assessment/Plan Assessment/Plan (1) Non-pressure chronic ulcer of right 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: CODE(S): L97.912 - Non-pressure chronic ulcer of unspecified part of right 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 (2) Non-pressure chronic ulcer of left 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: CODE(S): L97.922 - Non-pressure chronic ulcer of unspecified part of left 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 (3) Non-pressure 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 layer exposed: CODE(S): L97.222 - Non-pressure 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 layer exposed (4) Traumatic open wound of left lower leg: CODE(S): S81.802A - Unspecified open wound, left lower leg, initial encounter QUALIFIERS: Encounter type: subsequent encounter Qualified Code(s): S81.802D - Unspecified open wound, left lower leg, subsequent encounter (5) Open wound of knee: CODE(S): S81.009A - Unspecified open wound, unspecified knee, initial encounter QUALIFIERS: Encounter type: subsequent encounter Laterality: left Qualified Code(s): S81.002D - Unspecified open wound, left knee, subsequent encounter (6) Open wound of knee: CODE(S): S81.009A - Unspecified open wound, unspecified knee, initial encounter QUALIFIERS: Encounter type: subsequent encounter Laterality: right Qualified Code(s): S81.001D - Unspecified open wound, right knee, subsequent encounter (7) Current use of residential anticoagulation: CODE(S): Z79.01 - snf (current) use of anticoagulants (8) Hammer toe of right foot: CODE(S): M20.41 - Other hammer toe(s) (acquired), right foot (9) Venous (peripheral) insufficiency: CODE(S): I87.2 - Venous insufficiency (chronic) (peripheral) (10) Atrial fibrillation: CODE(S): I48.91 - Unspecified atrial fibrillation QUALIFIERS: Atrial fibrillation type: permanent Qualified Code(s): I48.21 - Permanent atrial fibrillation (11) Shortness of breath: CODE(S): R06.02 - Shortness of breath (12) CAD (coronary artery disease): CODE(S): I25.10 - Atherosclerotic heart disease of [place] coronary artery without angina pectoris QUALIFIERS: Coronary Disease-Associated Artery/Lesion type: [place] artery [place] vs. transplanted heart: [place] heart Associated angina: without angina Qualified Code(s): I25.10 - Atherosclerotic heart disease of [place] coronary artery without angina pectoris (13) Essential hypertension: CODE(S): I10 - Essential (primary) hypertension (14) Cardiac pacemaker in situ: CODE(S): Z95.0 - Presence of cardiac pacemaker (15) AV block, complete: CODE(S): I44.2 - Atrioventricular block, complete (16) History of radiofrequency ablation procedure for cardiac arrhythmia: CODE(S): Z98.890 - Other specified postprocedural states (17) Hx of atrioventricular node ablation: CODE(S): Z98.890 - Other specified postprocedural states (18) Diastolic congestive heart failure: CODE(S): I50.30 - Unspecified diastolic (congestive) heart failure QUALIFIERS: Heart failure chronicity: chronic Qualified Code(s): I50.32 - Chronic diastolic (congestive) heart failure (19) Pulmonary hypertension: CODE(S): I27.20 - Pulmonary hypertension, unspecified (20) Nonrheumatic mitral valve regurgitation: CODE(S): I34.0 - Nonrheumatic mitral (valve) insufficiency (21) Hyperlipidemia: CODE(S): E78.5 - Hyperlipidemia, unspecified QUALIFIERS: Hyperlipidemia type: unspecified Qualified Code(s): E78.5 - Hyperlipidemia, unspecified (22) GERD (gastroesophageal reflux disease): CODE(S): K21.9 - Gastro-esophageal reflux disease without esophagitis (23) Chronic anemia: CODE(S): D64.9 - Anemia, unspecified (24) Osteoarthritis of both knees: CODE(S): M17.0 - Bilateral primary osteoarthritis of knee PLAN: Plan This is an 84-year-old female who has been recently prone to falls and injuries. She originally injured her left lateral calf on April 04, 2024, and presented for treatment at our facility. The patient demonstrated good progress, but has returned to several scheduled visits with additional traumatic wounds to her extremities. Several of her traumatic wounds have healed, though we continue to treat wounds on both calves. Both right and left knee wounds appear to have completely healed. The patient's remaining wounds are without signs of infection or cellulitis. There is a a large open wound on each lateral calf, as well as a recent traumatic wounds on the distal right calf. With each of the patient's serial debridements, the patient has expressed discomfort, and displeasure with the debridement process. As result, we have utilized the Misonix ultrasonic debridement device recently relative to the patient's large calf wounds. These debridements have not been well-tolerated, but somewhat better than standard mechanical sharp debridements. The patient is to continue with the daily use of collagenase Santyl topically to each of her calf wounds. The patient has been instructed in the appropriate means of application. Adaptic is to be placed over the wounds following administration of the collagenase Santyl. The patient uses a narcotic analgesic at home for her arthritis, which can be expected to assist in pain control relative to her wounds. The patient continues to use compression to her lower extremities by means of Tubigrip's. The patient has been encouraged to maintain optimal nutritional intake, and has been using Shekhar as a supplement. She remains on systemic anticoagulation with warfarin, which is monitored and regulated by the outpatient clinic at [facility]. The patient is to follow-up in 1 week for reevaluation. It is felt that the patient's intolerance to weekly wound debridement is an inhibiting factor relative to the healing process. Therefore, we are to seek consultation with the Plastic Surgery service for consideration of surgical debridement in the operating room setting, where adequate sedation or anesthesia can be utilized to achieve a more complete debridement of the necrotic material on the patient's calf wounds. However, given the patient's advanced age and medical condition, the risks of such intervention must be considered. It is noted that the patient is scheduled for consultation with Dr. Cuevas (fleet coordinator) and Dr. Corbett (applied psychology professor) in the near future. The patient has been advised to elevate her lower extremities as much as possible, to avoid swelling in her lower extremities. Elevation is to be to heart level, or higher. She admits to relative noncompliance with the wearing of her Tubigrip's. We are to request home health nursing care to assist the patient in her daily wound dressing changes. We are to schedule the patient for a venous duplex ultrasound examination and a noninvasive lower extremity arterial study to evaluate the circulatory status in the patient's lower extremities. Total time: 25 minutes
--- NOTE | 2024-08-28 10:19 | WC ---
PHOTO 08/26/24 AD
--- NOTE | 2024-08-28 10:19 | WC ---
PHOTO 08/26/24 ADI
== END 2024-08-28 23:59 | disposition home or self-care (01) ==
LOC: WC 14:00
PROVIDERS: PCP Family Medicine; Referring Provider Nurse Practitioner Family; Visit Provider Surgery
DX: I87.2 Venous insufficiency (chronic) (peripheral) (principal); L97.812 Non-pressure chronic ulcer of other part of right 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; L97.222 Non-pressure 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 layer exposed; L97.822 Non-pressure chronic ulcer of other part of left 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; L97.212 Non-pressure chronic ulcer of right calf with fat layer exposed; I11.0 Hypertensive heart disease with heart failure; I50.32 Chronic diastolic (congestive) heart failure; I48.21 Permanent atrial fibrillation; I44.2 Atrioventricular block, complete; M17.0 Bilateral primary osteoarthritis of knee; I25.10 Atherosclerotic heart disease of native coronary artery without angina pectoris; Z79.01 Long term (current) use of anticoagulants; E78.5 Hyperlipidemia, unspecified; M20.41 Other hammer toe(s) (acquired), right foot; Z79.83 Long term (current) use of bisphosphonates; K21.9 Gastro-esophageal reflux disease without esophagitis; Z79.899 Other long term (current) drug therapy
CPT/HCPCS: 11042; 11045; 99212; 99213; G0463

== ENCOUNTER 2024-08-29 08:56 | Inpatient (IN) | payer MEDICARE, SELFPAY ==
[2024-08-29] VITALS (13 sets, daily range): BP systolic 112–182; BP diastolic 60–112; PULSE 61–79; RESP 16–18; TEMP 36.6–37.1; O2SAT 93–99; BMI 27.1; BMI 23.9
--- NOTE | 2024-08-29 09:06 | CT_ITS ---
STUDY: CT BRAIN WITHOUT CONTRAST REASON FOR EXAM: Female, 84 years old. chi HIA at injury due to a fall. RADIATION DOSAGE (If Supplied By Facility): CTDIvol = ( 44.99 ) mGy, DLP = ( 812.98 ) mGycm TECHNIQUE: Transaxial CT imaging of the brain was performed without administration of intravenous contrast material. Individualized dose optimization techniques were used for this CT. COMPARISON: No relevant priors. FINDINGS: Normal soft tissue structures. Normal calvarium. There is moderate cerebral atrophy with widening of the extra-axial spaces and ventricular dilatation. There are areas of decreased attenuation within the white matter tracts of the supratentorial brain, consistent with microvascular disease changes. Normal basal ganglia and thalami. Normal brainstem. There is mild cerebellar atrophy. There is no intracranial hemorrhage. There are no findings of an acute ischemic infarction. Atherosclerotic calcification in the cavernous portions of the internal carotid arteries bilaterally Normal visualized paranasal sinuses. CT/Brain/Head without Contrast IMPRESSION: Chronic involutional changes of the brain. Electronically Signed: Trevin Montalvo MD at 9:50 EDT ,
--- NOTE | 2024-08-29 09:14 | CT_ITS ---
STUDY: CT FACIAL BONES WITHOUT CONTRAST REASON FOR EXAM: Female, 84 years old. Head injury RADIATION DOSAGE (If Supplied By Facility): CTDIvol = ( 29.38 ) mGy, DLP = ( 547.46 ) mGycm TECHNIQUE: The patient was scanned in a multi detector CT scanner. Sagittal and coronal images were reconstructed. Individualized dose optimization techniques were used for this CT. COMPARISON: None. FINDINGS: Prominence of the middle turbinates bilaterally. Calcification of the carotid bifurcations. Normal orbital javier and orbital contents. Normal nasal bones and anterior nasal spine. Normal facial bones. There is no demonstrated fracture. Normal visualized paranasal sinuses. CT/Sinus/Facial Bone IMPRESSION: No acute abnormality seen. Electronically Signed: Trevin Montalvo MD at 9:49 EDT ,
--- NOTE | 2024-08-29 09:17 | EKG12_ITS ---
Test Reason : fall Blood Pressure : */* mmHG Vent. Rate : 66 BPM Atrial Rate : 170 BPM P-R Int : * ms QRS Dur : 168 ms QT Int : 432 ms P-R-T Axes : * -73 103 degrees QTcB Int : 452 ms Ventricular-paced rhythm Abnormal ECG When compared with ECG of 16-Aug-2024 20:52, Vent. rate has increased by 6 bpm Confirmed by Paulo Carrasco ([id number]), material expeditor JOHN MYRICK ([id number]) on 09/02/2024 9:30:58 AM Referred By: Confirmed By: Paulo Carrasco
--- NOTE | 2024-08-29 09:18 | CT_ITS ---
STUDY: CT CERVICAL SPINE WITHOUT CONTRAST REASON FOR EXAM: Female, 84 years old. Pain following a fall. RADIATION DOSAGE (If Supplied By Facility): CTDIvol = ( 16.13 ) mGy, DLP = ( 284.96 ) mGycm TECHNIQUE: High resolution transaxial imaging was performed without contrast material. Sagittal and coronal images were reconstructed. Individualized dose optimization techniques were used for this CT. COMPARISON: None FINDINGS: Normal craniovertebral junction. Normal anterior atlantoaxial articulation. Normal odontoid process. Normal cervical lordosis. Normal vertebral bodies and posterior osseous elements. C2-3: Normal endplates. Normal disc height and morphology. Normal central canal and intervertebral neuroforamina. C3-4: Mild degree of disc space narrowing. Facet joint osteoarthritis and hypertrophy. Uncovertebral arthrosis. Bilateral neural foraminal stenosis. C4-5: Marked degree of disc space narrowing. Spondylosis. Uncovertebral arthrosis and facet joint osteoarthritis prominent on the right side. Moderate to severe right neural foraminal stenosis. C5-6: Marked degree of this space narrowing. Uncovertebral arthrosis. Marked degree of bilateral neural foraminal stenosis. C6-7: Normal endplates. Normal disc height and morphology. Normal central canal and intervertebral neuroforamina. C7-T1: Normal endplates. Normal disc height and morphology. Normal central canal and intervertebral neuroforamina. Atherosclerotic plaque formation of the carotid bifurcations bilaterally. Mucosal thickening of the right mastoid air cells. CT/Spine Cervical without Contras IMPRESSION: Multilevel degenerative changes, as described above. Neural foraminal stenosis as described. Electronically Signed: Trevin Montalvo MD at 9:55 EDT ,
--- NOTE | 2024-08-29 09:20 | EDS_ITS ---
HPI History of Present Illness Chief Complaint: Fall Narrative Narrative: HIA protocols have been initiated, secondary to Coumadin and close head injury. Patient is a very pleasant 84-year-old female who is presenting to the ER today after a medical fall, head injury, and patient is on Coumadin. Patient has been on a new medication that she has been taking that she just 2 days ago. Patient stated that ever since she started the new medication, she has been having lightheaded, dizziness, weakness, and unsteadiness. Patient stopped taking the medication 2 days ago. Patient did call the cardiology office on the way to the ER and they also recommended stopping that medication as well, lunestitide (sp??). Patient stated that she took a Mountain [place] prior to arrival, patient only takes 2 or 3 Mountain [place] a day for chronic arthritic changes and pain. Patient says that she was sitting in the chair, went to stand up, lost her balance, fell face forward. Patient has abrasion to her chin, abrasion to forehead. Patient has a slowly expanding hematoma to her chin. Patient has no bony tenderness to palpation to the mandible. Patient has no headache or neck pain. No chest pain or shortness of breath. She has no other extremity complaints at this time. Patient was brought to the ER by her son. Patient had no loss of consciousness. Patient says when she went to go stand up from the chair, she does not remember exactly passing out but does remember hitting the floor. No other acute complaints at this time. [facility] Medical History Open wound of right upper extremity Non-pressure chronic ulcer of left 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 Non-pressure chronic ulcer of right 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 Open wound of knee Non-pressure 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 layer exposed Open wound of knee Wound, open, elbow Traumatic open wound of left lower leg Osteoarthritis of both knees Chronic anemia GERD (gastroesophageal reflux disease) Atrial fibrillation Pneumonia Hyponatremia CAD (coronary artery disease) Pericardial effusion half-way current use of anticoagulant Hyperlipidemia Tear of biceps muscle Osteoarthrosis Diverticulitis Essential hypertension Nonrheumatic mitral valve regurgitation Pulmonary hypertension Diastolic congestive heart failure Longstanding persistent atrial fibrillation AV block, complete Home Medications ?Medication ?Instructions ?Recorded ?Last Taken ?Type docusate sodium 100 mg capsule 100 mg PO BID PRN constipation 06/03/21 12/16/23 History (Stool Softener) Lactobacillus rhamnosus GG 5 1 tab PO DAILY PRN probiotic 02/20/23 Unknown History billion cell chewable tablet (Culturelle Kids Probiotics) ondansetron 4 mg disintegrating 4 mg PO Q6H PRN PRN Nausea #10 tabs 08/17/23 12/16/23 Rx tablet ibandronate 150 mg tablet 150 mg PO QMONTH 01/07/24 Unknown History polyethylene glycol 3350 17 17 g PO DAILY PRN constipation 02/07/24 Unknown History gram/dose oral powder (Miralax) warfarin 1 mg tablet 1 mg PO .COMPLEX anticoagulation 02/07/24 Unknown History naloxegol 25 mg tablet (Movantik) 25 mg PO QAM PRN stomach upset 02/18/24 Unknown History calcitriol 0.25 mcg capsule 0.25 mcg PO DAILY see mar 04/07/24 Unknown History ergocalciferol (vitamin D2) 1,250 1,250 mcg PO QWEEK 04/07/24 Unknown History mcg (50,000 unit) capsule hydrocodone-acetaminophen 5-325mg 1 tab PO TID PRN Pain 04/07/24 Unknown History 5mg-325mg wxrmhqgk-pyq-ciryd acid 0.4 1 tab PO DAILY 04/07/24 Unknown History mg-lycopene 300 mcg-lutein 250 mcg tablet (Centrum Silver) carvedilol 12.5 mg tablet 12.5 mg PO BID htn #180 tabs 04/11/24 Unknown Rx furosemide 40 mg tablet 40 mg PO BID edema, shortness of 07/29/24 Unknown History breath spironolactone 25 mg tablet 25 mg PO QDAY #30 tabs 07/29/24 Unknown Rx Allergy/AdvReac Type Severity Reaction Status Date / Time Iodinated Contrast Media Allergy Rash Verified 08/29/24 08:59 (Iodinated Contrast- Oral and IV Dye) iodine Allergy Rash Verified 08/29/24 08:59 Penicillins (PCN) Allergy Rash Verified 08/29/24 08:59 ciprofloxacin (From Cipro) AdvReac Intermediate dizziness Verified 08/29/24 08:59 clindamycin AdvReac Intermediate nausea Verified 08/29/24 08:59 levofloxacin (From Levaquin) AdvReac Intermediate abdominal Verified 08/29/24 08:59 pain, nausea simvastatin AdvReac Intermediate Myalgias Verified 08/29/24 08:59 Family History Father , Age 82 CAD (coronary artery disease) Myocardial infarction CVA (cerebral vascular accident) Hypertension Mother , Age 94 Hypertension CVA (cerebral vascular accident) Sister Cancer Brother , Age 13 months from congenital heart defect Congenital heart defect Surgical History History of left heart catheterization (09/09/03) History of cardioversion (07/12/05) H/O colectomy History of bunionectomy History of appendectomy History of hysterectomy (1990) History of knee replacement (05/2018) History of tilt table evaluation (06/02/04) Hx of atrioventricular node ablation History of radiofrequency ablation procedure for cardiac arrhythmia Cardiac pacemaker in situ Social History household members: spouse Smoking Status: Never smoker alcohol intake: never substance use type: does not use caffeine: No ROS ROS ED ROS Narrative REVIEW OF SYSTEMS: Unless otherwise stated in this report the patient's positive and negative responses for review of systems for constitutional, eyes, ENT, cardiovascular, respiratory, gastrointestinal, neurological, , musculoskeletal, and integument systems and related systems to the presenting problem are either stated in the history of present illness or were not pertinent or were negative for the symptoms and/or complaints related to the presenting medical problem. EXAM Physical Exam Narrative Exam Narrative: Vital signs reviewed and patient is not hypoxic. General: The patient appears well and in no apparent distress. Patient is resting comfortably on cart. Not toxic, lethargic, or listless. Ice has been applied to her left forehead and her chin. Skin: Warm, dry, no pallor noted. There is no rash noted. Head: Normocephalic, atraumatic; patient has no midline or paracervical tenderness palpation. Full range of motion of cervical spine and the difficulty. Patient does not want to be placed in a cervical collar as recommended secondary to age. Patient does have slow expanding hematoma noted to her chin, small abrasion noted to her chin. Patient does not have any teeth, patient has 2 implants to the lower palate, they are intact. No signs of intraoral laceration or pathology. Patient does have some mild ecchymosis and bruising around the left orbit. Patient has mild to moderate tenderness palpation to the superior lateral and inferior left orbit, no ocular motion deficits. No signs of any type of trauma to the eyeballs. Patient has no other signs of retrobulbar hematoma, or any other acute abnormalities at this time. Ice has been applied. Eye: Normal conjunctiva, no drainage, EOMI. PERRL. Ears, Nose, Mouth, and Throat: oral mucosa is moist. Nares patent. Mouth without vesicles. Cardiovascular: Regular Rate and Rhythm, no murmurs, gallops, or rubs Respiratory: Patient is in no distress, no accessory muscle use, lungs are clear to auscultation, no wheezing, rales or rhonchi Back: non-tender, no CVA tenderness bilaterally to percussion. NO CTLS midline or paraspinal tenderness to palpation. GI: Soft, no tenderness to palpation, no masses appreciated. No rebound, guarding, or rigidity noted. Musculoskeletal: The patient has full range of motion of all extremities and joints with no difficulty. Patient has no motor, no sensory deficits. Neurological: A&O x4, normal speech, no focal neurological deficits. Patient has the functional decision making capacity to make her own judgments and statements. Psychiatric: Cooperative Const Vital Signs: 08/29/24 08:57 08/29/24 10:33 08/29/24 10:36 Temperature 98 F Temperature Source Oral Pulse Rate 61 Pulse Rate [Lying] Pulse Rate [Sitting (for 1 minute prior to obtaining)] Pulse Rate [Standing (for 1 minute prior to obtaining)] Respiratory Rate 18 Respiratory Effort Normal Blood Pressure 175/91 H Blood Pressure [Lying] Blood Pressure [Sitting (for 1 minute prior to obtaining)] Blood Pressure [Standing (for 1 minute prior to obtaining)] Blood Pressure Mean 119 Blood Pressure Mean [Lying] Blood Pressure Mean [Sitting (for 1 minute prior to obtaining)] Blood Pressure Mean [Standing (for 1 minute prior to obtaining)] Pulse Ox 98 Oxygen Delivery Method Room Air Room Air 08/29/24 10:45 08/29/24 10:56 08/29/24 12:00 Temperature Temperature Source Pulse Rate 67 65 Pulse Rate [Lying] 74 Pulse Rate [Sitting (for 1 minute prior to obtaining)] 79 Pulse Rate [Standing (for 1 minute prior to obtaining)] 66 Respiratory Rate 18 18 Respiratory Effort Blood Pressure 129/63 H 124/60 H Blood Pressure [Lying] 158/79 H Blood Pressure [Sitting (for 1 minute prior to obtaining)] 182/80 H Blood Pressure [Standing (for 1 minute prior to obtaining)] 141/112 H Blood Pressure Mean 85 81 Blood Pressure Mean [Lying] 105 Blood Pressure Mean [Sitting (for 1 minute prior to obtaining)] 114 Blood Pressure Mean [Standing (for 1 minute prior to obtaining)] 121 Pulse Ox 93 94 Oxygen Delivery Method MDM MDM MDM Narrative Medical decision making narrative: HIA trauma protocols have been initiated secondary to closed head injury and Coumadin Patient took a [place] prior to arrival, she is now anything else for pain at this time. Patient was given ice to her left forehead and her left chin. Patient has a slowly expanding hematoma to her left lower chin, ice and pressure dressing has been applied 1040 patient sodium is 122. Patient has chronic hyponatremia. Chloride 88. BUN and creatinine are 36/1.38. Troponin negative. CT of brain, facial bones, cervical spine negative. Chest x-ray negative. Patient took a [place] prior to arrival, she had ice applied to forehead and chin. 1228 patient had ice reapplied, show eating lunch. Patient to receive 500 cc bolus of IV fluid secondary to sodium of 122, and urine creatinine slightly higher than her normal renal insufficiency. Patient is seen nephrology in the past, has been told that her kidneys are functioning at approximately 40-45%. Patient states that she thinks her sodium is normally around averaging 126. Patient's son has many questions at bedside as well and why patient sodium is chronically low, they have have done testing but nobody seems to have an answer. Patient will be admitted for observation for hyponatremia, vasovagal syncope. CT of the brain, cervical spine, facial bones show no acute fracture. Ice and bacitracin has been applied to abrasions. No questions at discharge. Dr Pace will be admitting Lab Data Attestation: I reviewed the patient's lab results. Labs: Laboratory Results - last 24 hr 08/29/24 08/29/24 09:16 11:45 WBC 12.0 H RBC 3.93 L Hgb 10.5 L Hct 32.3 L MCV 82.2 MCH 26.7 L MCHC 32.5 RDW Std Deviation 46.2 H RDW Coeff of Donn 15.3 H Plt Count 357 MPV 8.2 Immature Gran % (Auto) 0.500 Neut % (Auto) 69.3 Lymph % (Auto) 21.8 [place] % (Auto) 6.7 Eos % (Auto) 1.4 Baso % (Auto) 0.3 Absolute Neuts (auto) 8.3 H Absolute Lymphs (auto) 2.61 Nucleated RBC % 0 Sodium 122 L Potassium 4.9 Chloride 88 L Carbon Dioxide 24.0 Anion Gap 10 BUN 36 H Creatinine 1.38 H Est GFR (MDRD) Af Amer 47 L Est GFR (MDRD) Non-Af 39 L BUN/Creatinine Ratio 26.1 H Glucose 112 H Calcium 9.9 Magnesium 2.1 Troponin I High Sens 22 20 Patient has chronic hyponatremia, patient has sodium of 122, chloride 88. Patient BUN and creatinine slightly elevated 36/1.3-8. Potassium normal 4.9. Radiography Chest X-Ray - ED: 2 View and Read by ED Physician (Chest x-ray shows no acute cardiopulmonary disease, no infiltrate, no effusion.) Diagnostic Testing: Clinical Impression(s) from Imaging Studies Brain CT 08/29/24 09:06 IMPRESSION: Chronic involutional changes of the brain. Electronically Signed: Trevin Montalvo MD at 9:50 EDT , Facial/Sinus 08/29/24 09:14 IMPRESSION: No acute abnormality seen. Electronically Signed: Trevin Montalvo MD at 9:49 EDT , Cervical Spine CT 08/29/24 09:18 IMPRESSION: Multilevel degenerative changes, as described above. Neural foraminal stenosis as described. Electronically Signed: Trevin Montalvo MD at 9:55 EDT , Chest X-Ray 08/29/24 09:43 IMPRESSION: Thyromegaly. No acute abnormality is seen. Electronically Signed: Trevin Montalvo MD at 9:58 EDT , EKG Initial EKG: Attestation: I personally reviewed and interpreted this EKG as follows: (EKG interpretation. Ventricular paced rhythm at 66 beats a minute. No acute ST elevation, QTc of 452. No acute changes. Paced rhythm.) Discharge Plan Dx/Rx/DC Orders Clinical Impression: CHI (closed head injury), Hyponatremia, Contusion of face, Facial hematoma, Dehydration, mild, Vasovagal syncopes Disposition Disposition: Acute Care [facility]
[2024-08-29 09:33] LABS: Absolute Lymphocyte Count 2.61 X10^3/uL (0.83-4.51); Absolute Neutrophil Count 8.3 X10^3/uL (2.0-7.7); Basophil# 0.03 X10^3/uL; Basophil% 0.3 % (0-1); Eosinophil# 0.17 X10^3/uL; Eosinophils% 1.4 % (0-5); Hematocrit 32.3 % (37-47); Hemoglobin 10.5 g/dL (12.0-15.0); Lymphocyte # 2.61 X10^3/ul (0.83-4.51); Lymphocyte % 21.8 % (19-41); Mean Corp Hgb Conc 32.5 g/dL (32-36); Mean Corpuscular Hgb 26.7 pg (27.0-32.0); Mean Corpuscular Volume 82.2 fL (81-99); Mean Platelet Vol. 8.2 fl (6.2-12.0); Monocyte% 6.7 % (0-10); NRBC Flagged by Analyzer 0 % (0-5); Neutrophil # 8.32 X10^3/uL (2.7-7.7); Neutrophil % 69.3 % (47-70); Platelet Count 357 K/mm3 (150-450); RBC Distribution Width CV 15.3 % (11.6-14.6); RBC Distribution Width SD 46.2 fl (35.1-43.9); Red Blood Count 3.93 M/mm3 (4.2-5.4)
--- NOTE | 2024-08-29 09:43 | RAD_ITS ---
STUDY: X-RAY CHEST REASON FOR EXAM: Female, 84 years old. Chest pain TECHNIQUE: Single AP portable view of the chest. COMPARISON: Comparison is made with prior study August 16, 2024. FINDINGS: The lungs are clear and expanded. There is no demonstrated pleural abnormality. There is moderate cardiac enlargement. A left-sided dual-chamber pacemaker seen. Normal mediastinum and luis. Normal visualized pulmonary arteries. There is atherosclerotic tortuosity of the aortic arch and descending thoracic aorta. There are diffuse degenerative changes of the visualized thoracic spine. There is degenerative osteoarthritis of the bilateral shoulders. There is no demonstrated abnormality of the visualized soft tissue structures of the upper abdomen. RAD/Chest 1 View (Portable) IMPRESSION: Thyromegaly. No acute abnormality is seen. Electronically Signed: Trevin Montalvo MD at 9:58 EDT ,
[2024-08-29 09:47] LABS: Anion Gap 10 (5-15); BUN 36 mg/dL (7-18); BUN/Creat Ratio 26.1 RATIO (10-20); Calcium,Total 9.9 mg/dL (8.5-10.1); Chloride 88 mmol/L (98-107); Creatinine, Serum 1.38 mg/dL (0.55-1.02); EST Glomerular Filtration Rate 39 mL/min (>60); Est Glom Filt Rate - Afr Amer 47 mL/min (>60); Glucose 112 mg/dL (74-106); Magnesium 2.1 mg/dL (1.6-2.6); Potassium 4.9 mmol/L (3.5-5.1); Sodium Level 122 mmol/L (136-145); Troponin-I HS (w/2H Reflex) 22 pg/mL (3.0-54.0)
[2024-08-29 11:27] LABS: Reflex Troponin-HS? (from REC) Y
[2024-08-29] MEDS: 0.9% Normal Saline (500mL Bag) 500 ML IV (11:27)
[2024-08-29 12:13] LABS: Troponin-I HS 20 pg/mL (3.0-54.0)
--- NOTE | 2024-08-29 12:22 | HP.PCM.HOS_ITS ---
[facility] - General General Date of Admission: 08/29/24 Date of Service: 08/29/24 Chief Complaint: Multiple falls HPI Narrative JEANINE JARAMILLO, is a 84 F who presents with multiple falls. Patient has significant past cardiac history including paroxysmal A-fib, previous SVT status post ablation, conduction system disorder status post pacemaker placement, chronic congestive heart failure with preserved ejection fraction. Patient presented with multiple falls. Patient states she was recently placed on a new cardiac medication (unable to recall the name) since then she is experienced multiple falls and lightheadedness. Her last fall was on the morning of her presentation. Presented to the emergency department as a result. Imaging studies did not demonstrate any fractures. Patient was however found to have significant left periorbital bruising. She was also found to have acute kidney injury. Started on IV fluids admitted to regular nursing floor for further management [facility] Medical History Open wound of right upper extremity Non-pressure chronic ulcer of left 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 Non-pressure chronic ulcer of right 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 Open wound of knee Non-pressure 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 layer exposed Open wound of knee Wound, open, elbow Traumatic open wound of left lower leg Osteoarthritis of both knees Chronic anemia GERD (gastroesophageal reflux disease) Atrial fibrillation Pneumonia Hyponatremia CAD (coronary artery disease) Pericardial effusion longterm current use of anticoagulant Hyperlipidemia Tear of biceps muscle Osteoarthrosis Diverticulitis Essential hypertension Nonrheumatic mitral valve regurgitation Pulmonary hypertension Diastolic congestive heart failure Longstanding persistent atrial fibrillation AV block, complete Home Medications ?Medication ?Instructions ?Recorded ?Last Taken ?Type docusate sodium 100 mg capsule 100 mg PO BID PRN constipation 06/03/21 12/16/23 History (Stool Softener) Lactobacillus rhamnosus GG 5 1 tab PO DAILY PRN probiotic 02/20/23 Unknown History billion cell chewable tablet (Culturelle Kids Probiotics) ondansetron 4 mg disintegrating 4 mg PO Q6H PRN PRN Nausea #10 tabs 08/17/23 12/16/23 Rx tablet ibandronate 150 mg tablet 150 mg PO QMONTH 01/07/24 Unknown History polyethylene glycol 3350 17 17 g PO DAILY PRN constipation 02/07/24 Unknown History gram/dose oral powder (Miralax) warfarin 1 mg tablet 1 mg PO .COMPLEX anticoagulation 02/07/24 Unknown History naloxegol 25 mg tablet (Movantik) 25 mg PO QAM PRN stomach upset 02/18/24 Unknown History calcitriol 0.25 mcg capsule 0.25 mcg PO DAILY see mar 04/07/24 Unknown History ergocalciferol (vitamin D2) 1,250 1,250 mcg PO QWEEK 04/07/24 Unknown History mcg (50,000 unit) capsule hydrocodone-acetaminophen 5-325mg 1 tab PO TID PRN Pain 04/07/24 Unknown History 5mg-325mg xutoztss-ysl-rlwnd acid 0.4 1 tab PO DAILY 04/07/24 Unknown History mg-lycopene 300 mcg-lutein 250 mcg tablet (Centrum Silver) carvedilol 12.5 mg tablet 12.5 mg PO BID htn #180 tabs 04/11/24 Unknown Rx furosemide 40 mg tablet 40 mg PO BID edema, shortness of 07/29/24 Unknown History breath spironolactone 25 mg tablet 25 mg PO QDAY #30 tabs 07/29/24 Unknown Rx Allergy/AdvReac Type Severity Reaction Status Date / Time Iodinated Contrast Media Allergy Rash Verified 08/29/24 08:59 (Iodinated Contrast- Oral and IV Dye) iodine Allergy Rash Verified 08/29/24 08:59 Penicillins (PCN) Allergy Rash Verified 08/29/24 08:59 ciprofloxacin (From Cipro) AdvReac Intermediate dizziness Verified 08/29/24 08:59 clindamycin AdvReac Intermediate nausea Verified 08/29/24 08:59 levofloxacin (From Levaquin) AdvReac Intermediate abdominal Verified 08/29/24 08:59 pain, nausea simvastatin AdvReac Intermediate Myalgias Verified 08/29/24 08:59 Family History Father , Age 82 CAD (coronary artery disease) Myocardial infarction CVA (cerebral vascular accident) Hypertension Mother , Age 94 Hypertension CVA (cerebral vascular accident) Sister Cancer Brother , Age 13 months from congenital heart defect Congenital heart defect Surgical History History of left heart catheterization (09/09/03) History of cardioversion (07/12/05) H/O colectomy History of bunionectomy History of appendectomy History of hysterectomy (1990) History of knee replacement (05/2018) History of tilt table evaluation (06/02/04) Hx of atrioventricular node ablation History of radiofrequency ablation procedure for cardiac arrhythmia Cardiac pacemaker in situ Social History household members: spouse Smoking Status: Never smoker alcohol intake: never substance use type: does not use caffeine: No ROS ROS Narrative GENERAL: Headache HEENT: denies headache, sinus congestion, RESPIRATORY: denies cough, sputum production, CARDIAC: denies chest pain, palpitations, orthopnea, GASTROINTESTINAL: denies abdominal pain, nausea, GENITOURINARY: denies dysuria, urgency, frequency, EXTREMITY: denies swelling MUSCULOSKELETAL: denies current joint pain or tenderness NEUROLOGIC: denies focal numbness, weakness, tingling HEMATOLOGIC: denies easy bruising and/or hemorrhage INTEGUMENT: Left periorbital bruise PSYCHIATRIC: denies suicidal or homicidal ideation Vital Signs Vital Signs Vital Signs: 08/29/24 08:57 08/29/24 10:33 08/29/24 10:36 Temperature 98 F Temperature Source Oral Pulse Rate 61 Pulse Rate [Lying] Pulse Rate [Sitting (for 1 minute prior to obtaining)] Pulse Rate [Standing (for 1 minute prior to obtaining)] Respiratory Rate 18 Respiratory Effort Normal Blood Pressure 175/91 H Blood Pressure [Lying] Blood Pressure [Sitting (for 1 minute prior to obtaining)] Blood Pressure [Standing (for 1 minute prior to obtaining)] Blood Pressure Mean 119 Blood Pressure Mean [Lying] Blood Pressure Mean [Sitting (for 1 minute prior to obtaining)] Blood Pressure Mean [Standing (for 1 minute prior to obtaining)] Pulse Ox 98 Oxygen Delivery Method Room Air Room Air 08/29/24 10:45 08/29/24 10:56 08/29/24 12:00 Temperature Temperature Source Pulse Rate 67 65 Pulse Rate [Lying] 74 Pulse Rate [Sitting (for 1 minute prior to obtaining)] 79 Pulse Rate [Standing (for 1 minute prior to obtaining)] 66 Respiratory Rate 18 18 Respiratory Effort Blood Pressure 129/63 H 124/60 H Blood Pressure [Lying] 158/79 H Blood Pressure [Sitting (for 1 minute prior to obtaining)] 182/80 H Blood Pressure [Standing (for 1 minute prior to obtaining)] 141/112 H Blood Pressure Mean 85 81 Blood Pressure Mean [Lying] 105 Blood Pressure Mean [Sitting (for 1 minute prior to obtaining)] 114 Blood Pressure Mean [Standing (for 1 minute prior to obtaining)] 121 Pulse Ox 93 94 Oxygen Delivery Method Weight Weight: 67.132 kg Body Mass Index (BMI) 27.1 Physical Exam Narrative GENERAL: cooperative HEENT: Bruising involving the left periorbital region as well as the chin EYES; Anicteric, Normal Conjunctiva NECK; supple, normal thyroid, RESPIRATORY: Diminished to auscultation CARDIOVASCULAR: Irregularly irregular GI: soft, normoactive bowel sounds, : No Renal angle tenderness; EXTREMITIES: Wrapped, MUSCULOSKELETAL: no muscle wasting NEURO: Awake; no lateralizing signs. SKIN: No Rash PSYCH; Flat affect Results Lab / Micro Data 08/29/24 09:16 08/29/24 09:16 Labs: Laboratory Results - last 24 hr 08/29/24 09:16: WBC 12.0 H, RBC 3.93 L, Hgb 10.5 L, Hct 32.3 L, MCV 82.2, MCH 26.7 L, MCHC 32.5, RDW Std Deviation 46.2 H, RDW Coeff of Donn 15.3 H, Plt Count 357, MPV 8.2, Immature Gran % (Auto) 0.500, Neut % (Auto) 69.3, Lymph % (Auto) 21.8, [place] % (Auto) 6.7, Eos % (Auto) 1.4, Baso % (Auto) 0.3, Absolute Neuts (auto) 8.3 H, Absolute Lymphs (auto) 2.61, Nucleated RBC % 0, Sodium 122 L, Potassium 4.9, Chloride 88 L, Carbon Dioxide 24.0, Anion Gap 10, BUN 36 H, C reatinine 1.38 H, Est GFR (MDRD) Af Amer 47 L, Est GFR (MDRD) Non-Af 39 L, B UN/Creatinine Ratio 26.1 H, Glucose 112 H, Calcium 9.9, Magnesium 2.1, Troponin I High Sens 22 08/29/24 11:45: Troponin I High Sens 20 Imaging Radiology Impression Brain CT 08/29/24 09:06 IMPRESSION: Chronic involutional changes of the brain. Electronically Signed: Trevin Montalvo MD at 9:50 EDT , Facial/Sinus 08/29/24 09:14 IMPRESSION: No acute abnormality seen. Electronically Signed: Trevin Montalvo MD at 9:49 EDT , Cervical Spine CT 08/29/24 09:18 IMPRESSION: Multilevel degenerative changes, as described above. Neural foraminal stenosis as described. Electronically Signed: Trevin Montalvo MD at 9:55 EDT , Chest X-Ray 08/29/24 09:43 IMPRESSION: Thyromegaly. No acute abnormality is seen. Electronically Signed: Trevin Montalvo MD at 9:58 EDT , Assessment & Plan Assessment/Plan (1) Contusion of face: (2) Hyponatremia: PLAN: Plan Patient is an 84-year-old lady presenting with multiple falls 1. Multiple falls Do suspect orthostatic hypotension. Patient did experience close head injury. CT of the head obtained did not show any intracranial hemorrhage. Admitted to monitored bed requested for PT OT eval and social worker aide to assist with discharge planning 2. Hyponatremia ? Patient has chronic hyponatremia with sodium levels ranging between 1 24 to134, sodium level on admission was 122. Patient is on diuretic therapy held resuscitated with IV fluid subsequent monitoring of sodium levels ordered with daily BMPs 3. Syncopal episode ? Suspected to be secondary to orthostatic hypotension. Admitted to telemetry for continuous telemetry monitoring to rule out arrhythmia. Also ordered every shift orthostatic checks patient resuscitated with IV fluid 4. Paroxysmal A-fib ? Patient is on systemic anticoagulation with warfarin ordered INR to guide dosing once patient is on admission 5. Conduction system disorder ? Status post pacemaker placement 6. History of SVT ? Status post ablation 8. Chronic congestive heart failure with preserved ejection -2D echo from 08/11/2024 demonstrated LVEF of 60% with PASP of 54 mmHg. Patient diuretic therapy held given her presentation 8. Pulmonary hypertension Complicating care 9. Degenerative joint disease ? Pain meds as needed 10. Osteoporosis ? Patient is on biphosphonate as outpatient plan is to resume on discharge 11. Anemia ? Secondary to chronic disorder monitoring H&H and transfuse if patient becomes symptomatic or hemoglobin falls below 7 12. DVT prophylaxis ? Patient already anticoagulated with warfarin Time spent in the patient's overall evaluation,decision-making process, review of diagnostic data, adjustment of management, discussion with other providers, nursing nursing and ancillary staff involved in patient's care documentation,75 Minutes Advance planning; did discuss with the patient and family regarding advanced directives as well as CODE STATUS. Did explain the various scenarios involved ( FULL CODE, DNR CCA, DNR CCA with no intubation, and DNR CC and what each meant) patient elected remain full code with CPR and intubation if needed. Order was placed. Time spent on discussion 16 minutes. ? Charges/Coding Multi Select Codes Visit Charges Visit Charges: 88384 Init Hosp Hospitalists' Procedures Procedures: 42557 Advncd Care Plan 30 Min
[2024-08-29 13:08] LABS: Prothrombin Time (Protime)PT. 46.8 SECONDS (11.7-14.9)
[2024-08-29 13:30] LABS: International Normalized Ratio 5.1
[2024-08-29] MEDS: 0.9% Normal Saline (1000mL) 1,000 ML 150 ML IV ×2 (14:26→21:09)
[2024-08-29] MEDS: Acetaminophen 500 MG Tablet 1000 MG PO ×2 (14:26→21:08)
--- NOTE | 2024-08-29 15:20 | CASEMGMT ---
RN AMY levee superintendent CM to room to meet with patient for initial transition planning/care coordination assessment. RN AMY introduced self and role at [facility], pt voices understanding. Pt is A&O and is resting comfortably in bed. Care providers, pharmacy, and demographics verified. PCP: Dr Rashad Peñaloza Specialists: MELBA Fam - [facility]. Dr Egan @ [facility] in [place]. Dr Aye Cuevas- nephrology. Pt just had her 1st appt w/Dr Cuevas a couple days ago. Preferred Pharmacy: [facility] in [place]. [facility] Retail pharmacy @ discharge. Insurance: [employer] [facility] Prescription Benefit: Yes LNOK: Gabriel Zay (H). Calista Esquedaris (CAT). Ramos (Son) Living Arrangements: Pt lives with her in a 2 story home with a BM and HR throughout. 2 steps to enter home w/handrail. Pt states she has been sleeping on the couch for the past 8-10 months d/t legs got so bad. ADLs/IADLs: Ind w/ADL's (bathing/dressing) although does assist if needed. Daughter does most of the cleaning and laundry. Pt and was getting groceries together but states this past week she has been too weak to go. Transportation: Pt states she has not bee driving recently. does most of the driving. DME: Cane and walker at home. Raised toilet seat with grab bar. BSC. They just ordered a lift chair. HHC/SNF: [facility] after knee surgery a few years ago. .Pt denies HHC history and denies need for HHC @ discharte. Currently goes w/her to [facility] 2-3 x's week, which [facility] w[facility], where pt has gone to in the past. Pt declines need for SNF @ dc, although she does state, if necessary, she may consider it. Pt states she feels she will be safe to discharge home w/spousal support, declines need for HHC, and would like to go to [facility] again. Made aware a script can be provided @ dc and she states she can set this up on her own. She was made aware, if she changes her mind once returning home that she would like HHC instead of OP, to discuss this w/her her PCP. She voices understanding. She is aware PT/OT evals pending. Pt?s goal: Home with OP Therapy Plan: TBD. PT/OT evals pending. Bonnie AMARON RN CM
[2024-08-29] MEDS: Polyethylene Glycol 3350 17 GM PACKET PO (21:08)
[2024-08-29] MEDS: oxyCODONE 5 MG Tablet PO (21:09)
[2024-08-29] MEDS: Calcitriol 0.25 MCG Capsule PO (21:12)
[2024-08-29] MEDS: Carvedilol 12.5 MG Tablet PO (21:12)
[2024-08-30 03:25] VITALS: BP 126/66; PULSE 59; RESP 16; TEMP 36.5; O2SAT 95
[2024-08-30] MEDS: 0.9% Normal Saline (1000mL) 1,000 ML 150 ML IV ×2 (03:31→09:39)
[2024-08-30 05:32] VITALS: BMI 23.9
[2024-08-30 06:47] LABS: Absolute Lymphocyte Count 1.74 X10^3/uL (0.83-4.51); Absolute Neutrophil Count 3.1 X10^3/uL (2.0-7.7); Basophil# 0.04 X10^3/uL; Basophil% 0.7 % (0-1); Eosinophil# 0.25 X10^3/uL; Eosinophils% 4.2 % (0-5); Hematocrit 28.3 % (37-47); Lymphocyte # 1.74 X10^3/ul (0.83-4.51); Lymphocyte % 29.5 % (19-41); Mean Corp Hgb Conc 31.8 g/dL (32-36); Mean Corpuscular Hgb 26.8 pg (27.0-32.0); Mean Corpuscular Volume 84.2 fL (81-99); Mean Platelet Vol. 8.2 fl (6.2-12.0); Monocyte# 0.72 X10^3/uL; Monocyte% 12.2 % (0-10); NRBC Flagged by Analyzer 0 % (0-5); Neutrophil # 3.14 X10^3/uL (2.7-7.7); Neutrophil % 53.2 % (47-70); Platelet Count 271 K/mm3 (150-450); RBC Distribution Width CV 15.5 % (11.6-14.6); RBC Distribution Width SD 46.9 fl (35.1-43.9); Red Blood Count 3.36 M/mm3 (4.2-5.4); White Blood Count 5.9 K/mm3 (4.4-11.0)
[2024-08-30] MEDS: Acetaminophen 500 MG Tablet 1000 MG PO ×3 (06:58→22:54)
[2024-08-30 06:59] LABS: International Normalized Ratio 5.8; Prothrombin Time (Protime)PT. 51.5 SECONDS (11.7-14.9)
[2024-08-30] MEDS: oxyCODONE 5 MG Tablet PO ×4 (07:00→23:08)
[2024-08-30 07:20] LABS: Anion Gap 5 (5-15); BUN 25 mg/dL (7-18); BUN/Creat Ratio 25.7 RATIO (10-20); Calcium,Total 8.5 mg/dL (8.5-10.1); Chloride 106 mmol/L (98-107); Creatinine, Serum 0.97 mg/dL (0.55-1.02); EST Glomerular Filtration Rate 58 mL/min (>60); Est Glom Filt Rate - Afr Amer 70 mL/min (>60); Estimated Creatinine Clearance 34.15 ml/min; Glucose 86 mg/dL (74-106); Phosphorus 2.9 mg/dL (2.5-4.9); Potassium 4.8 mmol/L (3.5-5.1); Sodium Level 134 mmol/L (136-145)
--- NOTE | 2024-08-30 07:43 | PN.HOSP_ITS ---
Reason for Visit Reason for Visit: Diagnoses Hypo-osmolality and hyponatremia (08/29/24) Contusion of other part of head, initial encounter (08/29/24) Subjective Subjective Patient seen complains of hurting all over. Objective Data Objective Data Vital Signs: Vital Signs Temp Pulse Resp BP Pulse Ox O2 Del Method 97.7 F L 59 L 16 126/66 H 95 Room Air 08/30/24 03:25 08/30/24 03:25 08/30/24 03:25 08/30/24 03:25 08/30/24 03:25 08/30/24 03:25 Oxygen Delivery Method Room Air Weight: 59.4 kg Body Mass Index (BMI) 23.9 Intake & Output: Intake and Output for Last 24 Hours 08/28/24 08/29/24 08/30/24 23:59 23:59 23:59 Intake Total 1979 955 / 955 Balance 1979 955 / 955 Lab / Micro Data 08/30/24 06:25 08/30/24 06:25 Labs: Laboratory Results - last 24 hr 08/29/24 09:16: WBC 12.0 H, RBC 3.93 L, Hgb 10.5 L, Hct 32.3 L, MCV 82.2, MCH 26.7 L, MCHC 32.5, RDW Std Deviation 46.2 H, RDW Coeff of Donn 15.3 H, Plt Count 357, MPV 8.2, Immature Gran % (Auto) 0.500, Neut % (Auto) 69.3, Lymph % (Auto) 21.8, [place] % (Auto) 6.7, Eos % (Auto) 1.4, Baso % (Auto) 0.3, Absolute Neuts (auto) 8.3 H, Absolute Lymphs (auto) 2.61, Nucleated RBC % 0, PT 46.8 H, INR 5.1 H*, Sodium 122 L, Potassium 4.9, Chloride 88 L, Carbon Dioxide 24.0, Anion Gap 10, BUN 36 H, Creatinine 1.38 H, Est GFR (MDRD) Af Amer 47 L, Est GFR (MDRD) Non-Af 39 L, BUN/Creatinine Ratio 26.1 H, Glucose 112 H, Calcium 9.9, Magnesium 2.1, Troponin I High Sens 22 08/29/24 11:45: Troponin I High Sens 20 08/30/24 06:25: WBC 5.9, RBC 3.36 L, Hgb 9.0 L, Hct 28.3 L, MCV 84.2, MCH 26.8 L , MCHC 31.8 L, RDW Std Deviation 46.9 H, RDW Coeff of Donn 15.5 H, Plt Count 271, MPV 8.2, Immature Gran % (Auto) 0.200, Neut % (Auto) 53.2, Lymph % (Auto) 29.5, [place] % (Auto) 12.2 H, Eos % (Auto) 4.2, Baso % (Auto) 0.7, Absolute Neuts (auto) 3.1, Absolute Lymphs (auto) 1.74, Nucleated RBC % 0, PT 51.5 H, INR 5.8 H*, S odium 134 L, Potassium 4.8, Chloride 106, Carbon Dioxide 23.0, Anion Gap 5, BUN 25 H, Creatinine 0.97, Estim Creat Clear Calc 34.15, Est GFR (MDRD) Af Amer 70, Est GFR (MDRD) Non-Af 58 L, BUN/Creatinine Ratio 25.7 H, Glucose 86, Calcium 8.5, Phosphorus 2.9, Magnesium 2.0 Radiography Diagnostic Testing: Radiology Impression Brain CT 08/29/24 09:06 IMPRESSION: Chronic involutional changes of the brain. Electronically Signed: Trevin Montalvo MD at 9:50 EDT , Facial/Sinus 08/29/24 09:14 IMPRESSION: No acute abnormality seen. Electronically Signed: Trevin Montalvo MD at 9:49 EDT , Cervical Spine CT 08/29/24 09:18 IMPRESSION: Multilevel degenerative changes, as described above. Neural foraminal stenosis as described. Electronically Signed: Trevin Montalvo MD at 9:55 EDT , Chest X-Ray 08/29/24 09:43 IMPRESSION: Thyromegaly. No acute abnormality is seen. Electronically Signed: Trevin Montalvo MD at 9:58 EDT , Physical Exam Narrative GENERAL: cooperative HEENT: Bruising involving the left periorbital region as well as the chin EYES; Anicteric, Normal Conjunctiva NECK; supple, normal thyroid, RESPIRATORY: Diminished to auscultation CARDIOVASCULAR: Irregularly irregular GI: soft, normoactive bowel sounds, : No Renal angle tenderness; EXTREMITIES: Wrapped, MUSCULOSKELETAL: no muscle wasting NEURO: Awake; no lateralizing signs. SKIN: No Rash PSYCH; Flat affect Assessment & Plan Assessment/Plan (1) Contusion of face: (2) Hyponatremia: PLAN: Plan Patient is an 84-year-old lady presenting with multiple falls 1. Multiple falls Do suspect orthostatic hypotension. Patient did experience close head injury. CT of the head obtained did not show any intracranial hemorrhage. Admitted to monitored bed requested for PT OT eval and social media strategist to assist with discharge planning ? 08/30/2024. PT eval pending 2. Hyponatremia ? Patient has chronic hyponatremia with sodium levels ranging between 1 24 to134, sodium level on admission was 122. Patient is on diuretic therapy held resuscitated with IV fluid subsequent monitoring of sodium levels ordered with daily BMPs ? 08/30/2024 patient sodium levels up to 134 will discontinue IV fluid 3. Syncopal episode ? Suspected to be secondary to orthostatic hypotension. Admitted to telemetry for continuous telemetry monitoring to rule out arrhythmia. Also ordered every shift orthostatic checks patient resuscitated with IV fluid 4. Paroxysmal A-fib ? Patient is on systemic anticoagulation with warfarin ordered INR to guide dosing once patient is on admission ? 08/30/2024; Coumadin being held given her elevated INR 5. Conduction system disorder ? Status post pacemaker placement 6. History of SVT ? Status post ablation 8. Chronic congestive heart failure with preserved ejection -2D echo from 08/11/2024 demonstrated LVEF of 60% with PASP of 54 mmHg. Patient diuretic therapy held given her presentation 8. Pulmonary hypertension Complicating care 9. Degenerative joint disease ? Pain meds as needed 10. Osteoporosis ? Patient is on biphosphonate as outpatient plan is to resume on discharge 11. Anemia ? Secondary to chronic disorder monitoring H&H and transfuse if patient becomes symptomatic or hemoglobin falls below 7 12. DVT prophylaxis ? Patient already anticoagulated with warfarin Time spent in the patient's overall evaluation,decision-making process, review of diagnostic data, adjustment of management, discussion with other providers, nursing nursing and ancillary staff involved in patient's care documentation, 38 minutes Charges/Coding Visit Charges Inpatient E&M: 31166 Subs Hosp L2
[2024-08-30 08:35] VITALS: O2SAT 96
[2024-08-30 09:29] VITALS: BP 112/60; PULSE 65; RESP 18; TEMP 36.4; O2SAT 96
[2024-08-30] MEDS: Carvedilol 12.5 MG Tablet PO ×2 (09:35→22:54)
[2024-08-30] MEDS: Calcitriol 0.25 MCG Capsule PO (09:35)
[2024-08-30] MEDS: Famotidine 20 MG Tablet PO (09:35)
[2024-08-30] MEDS: Senna/Docusate Sodium 1 Tablet 2 TABLET PO (09:38)
[2024-08-30] MEDS: Polyethylene Glycol 3350 17 GM PACKET PO (09:39)
[2024-08-30] MEDS: guaiFENesin 10 ML UDC (200MG/10ML) 20 ML PO (09:39)
--- NOTE | 2024-08-30 14:28 | CASEMGMT ---
Therapy is recommending SNF for patient. SW met with patient. Introduced self and role at [facility] again. SW explained recommendations and patient is agreeable. SW provided patient a list of [facility] facility providers including quality and resource use data and consistent with patient?s preferred geographic region, medical needs, and insurance network were provided from the [employer] Guide.?SW asked patient to review the list and pick 3 places. SW will follow up on Sunday for choices. Patient did say she would like [facility]. They were not on the list, but SW can check. Plan: SNF [facility]
[2024-08-30 15:16] VITALS: BP 104/64; PULSE 66; RESP 18; TEMP 36.4; O2SAT 97
[2024-08-30 22:00] VITALS: BP 144/63; PULSE 60; RESP 16; TEMP 37.1; O2SAT 97
[2024-08-31] MEDS: oxyCODONE 5 MG Tablet PO ×5 (03:10→22:22)
[2024-08-31 03:25] VITALS: BP 167/95; PULSE 74; RESP 16; TEMP 36.4; O2SAT 96
[2024-08-31 05:54] LABS: Basophil% 0.7 % (0-1); Eosinophils% 4.8 % (0-5); Hematocrit 26.5 % (37-47); Hemoglobin 8.5 g/dL (12.0-15.0); Lymphocyte % 26.4 % (19-41); Mean Corp Hgb Conc 32.1 g/dL (32-36); Mean Corpuscular Hgb 27.1 pg (27.0-32.0); Mean Corpuscular Volume 84.4 fL (81-99); Mean Platelet Vol. 8.3 fl (6.2-12.0); Monocyte% 8.9 % (0-10); Neutrophil # 4.18 X10^3/uL (2.7-7.7); Neutrophil % 58.9 % (47-70); Platelet Count 245 K/mm3 (150-450); RBC Distribution Width CV 15.7 % (11.6-14.6); RBC Distribution Width SD 47.4 fl (35.1-43.9); Red Blood Count 3.14 M/mm3 (4.2-5.4); White Blood Count 7.1 K/mm3 (4.4-11.0)
[2024-08-31 05:55] LABS: Absolute Lymphocyte Count 1.87 X10^3/uL (0.83-4.51); Absolute Neutrophil Count 4.2 X10^3/uL (2.0-7.7); Basophil# 0.05 X10^3/uL; Eosinophil# 0.34 X10^3/uL; Lymphocyte # 1.87 X10^3/ul (0.83-4.51); Monocyte# 0.63 X10^3/uL; NRBC Flagged by Analyzer 0 % (0-5)
[2024-08-31 06:10] LABS: International Normalized Ratio 4.2
[2024-08-31] MEDS: Acetaminophen 500 MG Tablet 1000 MG PO ×3 (06:54→20:45)
[2024-08-31 06:55] LABS: Anion Gap 5 (5-15); BUN 17 mg/dL (7-18); BUN/Creat Ratio 19.7 RATIO (10-20); Calcium,Total 9.1 mg/dL (8.5-10.1); Chloride 104 mmol/L (98-107); Creatinine, Serum 0.86 mg/dL (0.55-1.02); EST Glomerular Filtration Rate 67 mL/min (>60); Est Glom Filt Rate - Afr Amer 81 mL/min (>60); Estimated Creatinine Clearance 38.51 ml/min; Glucose 91 mg/dL (74-106); Potassium 4.9 mmol/L (3.5-5.1); Sodium Level 131 mmol/L (136-145)
[2024-08-31 07:36] VITALS: O2SAT 96
--- NOTE | 2024-08-31 08:12 | PCM.PN.HOSP ---
Reason for Visit Reason for Visit: Diagnoses Hypo-osmolality and hyponatremia (08/29/24) Contusion of other part of head, initial encounter (08/29/24) Subjective Subjective Patient seen complaining of aching all over. INR still remains elevated. Plan is for patient to be discharged to a assisted facility. Objective Data Objective Data Vital Signs: Vital Signs Temp Pulse Resp BP Pulse Ox O2 Del Method 97.5 F L 74 16 167/95 H 96 Room Air 08/31/24 03:25 08/31/24 03:25 08/31/24 03:25 08/31/24 03:25 08/31/24 03:25 08/31/24 03:25 Oxygen Delivery Method Room Air Weight: 59.4 kg Body Mass Index (BMI) 23.9 Intake & Output: Intake and Output for Last 24 Hours 08/29/24 08/30/24 08/31/24 23:59 23:59 22:59 Intake Total 1979 2875 / 2875 Balance 1979 2875 / 2875 Lab / Micro Data 08/31/24 05:35 08/31/24 05:35 Labs: Laboratory Results - last 24 hr 08/31/24 05:35: WBC 7.1, RBC 3.14 L, Hgb 8.5 L, Hct 26.5 L, MCV 84.4, MCH 27.1, MCHC 32.1, RDW Std Deviation 47.4 H, RDW Coeff of Donn 15.7 H, Plt Count 245, MPV 8.3, Immature Gran % (Auto) 0.300, Neut % (Auto) 58.9, Lymph % (Auto) 26.4, [place] % (Auto) 8.9, Eos % (Auto) 4.8, Baso % (Auto) 0.7, Absolute Neuts (auto) 4.2, Absolute Lymphs (auto) 1.87, Nucleated RBC % 0, PT 40.0 H, INR 4.2 H*, Sodium 131 L, Potassium 4.9, Chloride 104, Carbon Dioxide 23.0, Anion Gap 5, BUN 17, Creatinine 0.86, Estim Creat Clear Calc 38.51, Est GFR (MDRD) Af Amer 81, Est GFR (MDRD) Non-Af 67, BUN/Creatinine Ratio 19.7, Glucose 91, Calcium 9.1 Physical Exam Narrative GENERAL: cooperative HEENT: Bruising involving the left periorbital region as well as the chin EYES; Anicteric, Normal Conjunctiva NECK; supple, normal thyroid, RESPIRATORY: Diminished to auscultation CARDIOVASCULAR: Irregularly irregular GI: soft, normoactive bowel sounds, : No Renal angle tenderness; EXTREMITIES: Wrapped, MUSCULOSKELETAL: no muscle wasting NEURO: Awake; no lateralizing signs. SKIN: No Rash PSYCH; Flat affect Assessment & Plan Assessment/Plan (1) Contusion of face: (2) Hyponatremia: PLAN: Plan Patient is an 84-year-old lady presenting with multiple falls 1. Multiple falls Do suspect orthostatic hypotension. Patient did experience close head injury. CT of the head obtained did not show any intracranial hemorrhage. Admitted to monitored bed requested for PT OT eval and director of social services to assist with discharge planning ? 08/30/2024. PT eval pending 2. Hyponatremia ? Patient has chronic hyponatremia with sodium levels ranging between 1 24 to134, sodium level on admission was 122. Patient is on diuretic therapy held resuscitated with IV fluid subsequent monitoring of sodium levels ordered with daily BMPs ? 08/30/2024 patient sodium levels up to 134 will discontinue IV fluid 08/31/2024 patient sodium continues to fluctuate 131 this a.m. 3. Syncopal episode ? Suspected to be secondary to orthostatic hypotension. Admitted to telemetry for continuous telemetry monitoring to rule out arrhythmia. Also ordered every shift orthostatic checks patient resuscitated with IV fluid 4. Paroxysmal A-fib ? Patient is on systemic anticoagulation with warfarin ordered INR to guide dosing once patient is on admission ? 08/30/2024; Coumadin being held given her elevated INR -08/31/2024; INR down to 4.2 continue with holding of Coumadin 5. Conduction system disorder ? Status post pacemaker placement 6. History of SVT ? Status post ablation 8. Chronic congestive heart failure with preserved ejection -2D echo from 08/11/2024 demonstrated LVEF of 60% with PASP of 54 mmHg. Patient diuretic therapy held given her presentation 8. Pulmonary hypertension Complicating care 9. Degenerative joint disease ? Pain meds as needed 10. Osteoporosis ? Patient is on biphosphonate as outpatient plan is to resume on discharge 11. Anemia ? Secondary to chronic disorder monitoring H&H and transfuse if patient becomes symptomatic or hemoglobin falls below 7 12. DVT prophylaxis ? Patient already anticoagulated with warfarin Time spent in the patient's overall evaluation,decision-making process, review of diagnostic data, adjustment of management, discussion with other providers, nursing nursing and ancillary staff involved in patient's care documentation, 38 minutes Charges/Coding Visit Charges Inpatient E&M: 14475 Subs Hosp L2
[2024-08-31 08:19] VITALS: BP 144/62; PULSE 63; RESP 18; TEMP 36.3; O2SAT 99
[2024-08-31] MEDS: Senna/Docusate Sodium 1 Tablet 2 TABLET PO (08:20)
[2024-08-31] MEDS: Polyethylene Glycol 3350 17 GM PACKET PO (08:20)
[2024-08-31] MEDS: guaiFENesin 10 ML UDC (200MG/10ML) 20 ML PO (08:20)
[2024-08-31] MEDS: Calcitriol 0.25 MCG Capsule PO (08:21)
[2024-08-31] MEDS: Famotidine 20 MG Tablet PO (08:22)
[2024-08-31] MEDS: Carvedilol 12.5 MG Tablet PO ×2 (08:22→20:45)
[2024-08-31 15:01] VITALS: BP 155/72; PULSE 70; RESP 18; TEMP 36.4; O2SAT 96
[2024-08-31 21:01] VITALS: BP 164/74; PULSE 72; RESP 18; TEMP 36.6; O2SAT 98
[2024-09-01] VITALS (10 sets, daily range): BP systolic 125–203; BP diastolic 50–91; PULSE 64–71; RESP 18; TEMP 36.7–37.1; O2SAT 99–100; BMI 26.7
[2024-09-01] MEDS: oxyCODONE 5 MG Tablet PO ×5 (02:13→20:51)
[2024-09-01] MEDS: Acetaminophen 500 MG Tablet 1000 MG PO ×3 (05:26→20:10)
[2024-09-01 06:06] LABS: Absolute Lymphocyte Count 2.21 X10^3/uL (0.83-4.51); Absolute Neutrophil Count 5.1 X10^3/uL (2.0-7.7); Basophil# 0.06 X10^3/uL; Basophil% 0.7 % (0-1); Eosinophils% 3.6 % (0-5); Lymphocyte # 2.21 X10^3/ul (0.83-4.51); Lymphocyte % 26.6 % (19-41); Mean Corp Hgb Conc 32.3 g/dL (32-36); Mean Corpuscular Hgb 27.3 pg (27.0-32.0); Mean Corpuscular Volume 84.7 fL (81-99); Mean Platelet Vol. 8.7 fl (6.2-12.0); Monocyte# 0.65 X10^3/uL; Monocyte% 7.8 % (0-10); NRBC Flagged by Analyzer 0 % (0-5); Neutrophil # 5.08 X10^3/uL (2.7-7.7); Neutrophil % 61.1 % (47-70); Platelet Count 299 K/mm3 (150-450); RBC Distribution Width CV 15.7 % (11.6-14.6); RBC Distribution Width SD 48.2 fl (35.1-43.9); Red Blood Count 3.66 M/mm3 (4.2-5.4); White Blood Count 8.3 K/mm3 (4.4-11.0)
[2024-09-01 06:12] LABS: International Normalized Ratio 2.2; Prothrombin Time (Protime)PT. 24.3 SECONDS (11.7-14.9)
[2024-09-01 06:42] LABS: Magnesium 1.9 mg/dL (1.6-2.6)
[2024-09-01 06:45] LABS: Anion Gap 8 (5-15); BUN 13 mg/dL (7-18); Calcium,Total 9.8 mg/dL (8.5-10.1); Chloride 99 mmol/L (98-107); EST Glomerular Filtration Rate 56 mL/min (>60); Est Glom Filt Rate - Afr Amer 68 mL/min (>60); Estimated Creatinine Clearance 37.41 ml/min; Glucose 110 mg/dL (74-106); Sodium Level 129 mmol/L (136-145)
--- NOTE | 2024-09-01 07:21 | PN.HOSP_ITS ---
Reason for Visit Reason for Visit: Diagnoses Hypo-osmolality and hyponatremia (08/29/24) Contusion of other part of head, initial encounter (08/29/24) Subjective Subjective Patient seen complaining of hurting all over across the chest making it difficult for her to breathe. Ordered chest x-ray and given Toradol 15 mg x 1 Objective Data Objective Data Vital Signs: Vital Signs Temp Pulse Resp BP Pulse Ox O2 Del Method 98.2 F 71 18 160/80 H 99 Room Air 09/01/24 03:00 09/01/24 03:00 09/01/24 03:00 09/01/24 03:00 09/01/24 03:00 09/01/24 03:00 Oxygen Delivery Method Room Air Weight: 66.3 kg Body Mass Index (BMI) 26.7 Intake & Output: Intake and Output for Last 24 Hours 08/30/24 08/31/24 09/01/24 23:59 22:59 23:59 Intake Total 2875 / 2875 900 / 900 Balance 2875 / 2875 900 / 900 Lab / Micro Data 09/01/24 05:26 09/01/24 05:26 Labs: Laboratory Results - last 24 hr 09/01/24 05:26: WBC 8.3, RBC 3.66 L, Hgb 10.0 L, Hct 31.0 L, MCV 84.7, MCH 27.3, MCHC 32.3, RDW Std Deviation 48.2 H, RDW Coeff of Donn 15.7 H, Plt Count 299, MPV 8.7, Immature Gran % (Auto) 0.200, Neut % (Auto) 61.1, Lymph % (Auto) 26.6, [place] % (Auto) 7.8, Eos % (Auto) 3.6, Baso % (Auto) 0.7, Absolute Neuts (auto) 5.1, Absolute Lymphs (auto) 2.21, Nucleated RBC % 0, PT 24.3 H, INR 2.2, Sodium 129 L , Potassium 5.0, Chloride 99, Carbon Dioxide 23.0, Anion Gap 8, BUN 13, Creatinine 1.00, Estim Creat Clear Calc 37.41, Est GFR (MDRD) Af Amer 68, Est GFR (MDRD) Non-Af 56 L, BUN/Creatinine Ratio 13.0, Glucose 110 H, Calcium 9.8, Magnesium 1.9 Physical Exam Narrative GENERAL: cooperative HEENT: Bruising involving the left periorbital region as well as the chin EYES; Anicteric, Normal Conjunctiva NECK; supple, normal thyroid, RESPIRATORY: Diminished to auscultation CARDIOVASCULAR: Irregularly irregular GI: soft, normoactive bowel sounds, : No Renal angle tenderness; EXTREMITIES: Wrapped, MUSCULOSKELETAL: no muscle wasting NEURO: Awake; no lateralizing signs. SKIN: No Rash PSYCH; Flat affect Assessment & Plan Assessment/Plan (1) Contusion of face: (2) Hyponatremia: PLAN: Plan Patient is an 84-year-old lady presenting with multiple falls 1. Multiple falls Do suspect orthostatic hypotension. Patient did experience close head injury. CT of the head obtained did not show any intracranial hemorrhage. Admitted to monitored bed requested for PT OT eval and social sciences department chair to assist with discharge planning ? 08/30/2024. PT eval pending ? 09/01/2024 plan is for [facility] pending insurance approval. Patient complains of hurting all over did order a single dose of Toradol 15 mg x 1 also requested for checks x-ray in view of patient complaining of difficulty breathing 2. Hyponatremia ? Patient has chronic hyponatremia with sodium levels ranging between 1 24 to134, sodium level on admission was 122. Patient is on diuretic therapy held resuscitated with IV fluid subsequent monitoring of sodium levels ordered with daily BMPs ? 08/30/2024 patient sodium levels up to 134 will discontinue IV fluid 08/31/2024 patient sodium continues to fluctuate 131 this a.m. ? 09/01/2024 sodium levels from 129 this a.m. 3. Syncopal episode ? Suspected to be secondary to orthostatic hypotension. Admitted to telemetry for continuous telemetry monitoring to rule out arrhythmia. Also ordered every shift orthostatic checks patient resuscitated with IV fluid 4. Paroxysmal A-fib ? Patient is on systemic anticoagulation with warfarin ordered INR to guide dosing once patient is on admission ? 08/30/2024; Coumadin being held given her elevated INR -08/31/2024; INR down to 4.2 continue with holding of Coumadin ? 09/01/2024 INR 2.2 resume Coumadin 5. Conduction system disorder ? Status post pacemaker placement 6. History of SVT ? Status post ablation 8. Chronic congestive heart failure with preserved ejection -2D echo from 08/11/2024 demonstrated LVEF of 60% with PASP of 54 mmHg. Patient diuretic therapy held given her presentation 8. Pulmonary hypertension Complicating care 9. Degenerative joint disease ? Pain meds as needed 10. Osteoporosis ? Patient is on biphosphonate as outpatient plan is to resume on discharge 11. Anemia ? Secondary to chronic disorder monitoring H&H and transfuse if patient becomes symptomatic or hemoglobin falls below 7 12. DVT prophylaxis ? Patient already anticoagulated with warfarin Time spent in the patient's overall evaluation,decision-making process, review of diagnostic data, adjustment of management, discussion with other providers, nursing nursing and ancillary staff involved in patient's care documentation, 35 minutes Charges/Coding Visit Charges Inpatient E&M: 63243 Subs Hosp L2
[2024-09-01] MEDS: Ketorolac 15 MG/ML Vial IV (08:59)
[2024-09-01] MEDS: Carvedilol 12.5 MG Tablet PO ×2 (09:03→20:10)
[2024-09-01] MEDS: Famotidine 20 MG Tablet PO (09:04)
[2024-09-01] MEDS: Calcitriol 0.25 MCG Capsule PO ×2 (09:04→20:48)
--- NOTE | 2024-09-01 11:00 | RAD_ITS ---
STUDY: X-RAY CHEST REASON FOR EXAM: Female, 84 years old. DYSPNEA TECHNIQUE: Frontal and lateral views of the chest. COMPARISON: 08/29/2024.. FINDINGS: There is hyperinflation of the lungs consistent with chronic obstructive lung disease (COPD). No infiltrates or effusions. There is moderate cardiac enlargement. Pacemaker is seen with leads terminating in the right atrium and right ventricle. Normal mediastinum and luis. Normal visualized pulmonary arteries. Normal visualized aortic arch and descending thoracic aorta. There is demineralization of the osseous structures. There is degenerative osteoarthritis of the bilateral shoulders. There is no demonstrated abnormality of the visualized soft tissue structures of the upper abdomen. RAD/Chest PA and Lateral IMPRESSION: No definite acute chest disease. Electronically Signed: Arthur Guevara MD at 23:52 EST ,
--- NOTE | 2024-09-01 13:48 | CASEMGMT ---
Patient is doing well with therapy. Patient walked 300'. Therefore, patient would not qualify for a stay at [facility]. SW updated RN CM. Kelsie SIDDIQUI
--- NOTE | 2024-09-01 14:39 | WOUNDNOTE ---
wound photo: left lower leg
--- NOTE | 2024-09-01 14:39 | WOUNDNOTE ---
wound photo: right lower leg
[2024-09-01] MEDS: hydrALAZINE 20 MG/ML Vial 10 MG IV ×2 (14:58→20:12)
--- NOTE | 2024-09-01 15:41 | CASEMGMT ---
Per physician patient does not want to go home. SW met with patient. SW let patient know that her insurance is not going to approve her to go to a prison facility as she is doing too well with therapy. Patient said her cannot care for her and she needs help. SW asked patient what she needs help with. Patient stated she can't imagine going home and making dinner. SW mentioned private paying at a facility and approximate cost. Patient mentioned she has senior care care insurance. SW told patient she might want to check in with her terminal worker care insurance about coverage. Patient asked SW to check with [facility] on their private pay pricing. Kelsie Ferguson ASSISTANT DISTRICT ATTORNEY [facility]
--- NOTE | 2024-09-01 16:01 | CHAPLAIN ---
Type of Pastoral Visit _x__ Initial Visit ___ Follow-up Visit ___ On-call Visit ___ General Patient Visit ___ Spiritual Assessment ___ Family Conference ___ Bereavement ___ Rapid Response ___ Code Blue ___ Other (describe below) Pastoral Care Referral From _x__ Patient ___ Family ___ Nurse ___ Physician ___ Large Engine Assembler ___ Wellness Program Administrator ___ Other (describe below) Sacrament/Intervention _x__ Active listening ___ Anointing ___ Shinto ___ Bereavement ___ Communion ___ Lily exploration ___ _x__ Life review _x__ Prayer ___ Reconciliation ___ Sacrament of Sick _x__ Supportive presence ___ Wedding ___ Other (describe below) Pastoral Comments patient fell and has massive bruising on her face and body; pt is somewhat embarrassed but tries to make light about it; pt expresses her discomfort as very significant and not finding anything that is really helping yet; pain and discomfort are her biggest concerns at this time; pt has concerns about what medications she will need; pt welcomes presence and prayer and is quite talkative
[2024-09-01] MEDS: Lidocaine 5% Patch 2 PATCH TOPICAL (16:44)
[2024-09-01] MEDS: Spironolactone 25 MG Tablet PO (16:44)
[2024-09-01] MEDS: Furosemide 40 MG Tablet PO (20:10)
[2024-09-01] MEDS: Nitroglycerin (INPATIENT USE) 0.4 MG TAB.SUBL SL (20:20)
--- NOTE | 2024-09-01 20:20 | EKG12_ITS ---
Test Reason : CP Blood Pressure : */* mmHG Vent. Rate : 73 BPM Atrial Rate : 75 BPM P-R Int : * ms QRS Dur : 162 ms QT Int : 438 ms P-R-T Axes : * -74 91 degrees QTcB Int : 482 ms Ventricular-paced rhythm Abnormal ECG When compared with ECG of 29-Aug-2024 09:42, MANUAL COMPARISON REQUIRED DATA IS UNCONFIRMED Confirmed by Paulo Carrasco ([id number]), technical writer and editor JOHN MYRICK ([id number]) on 09/02/2024 1:07:18 PM Referred By: PRO Confirmed By: Paulo Carrasco
[2024-09-01] MEDS: Ondansetron 4 MG/2 ML Vial IV (20:48)
[2024-09-01] MEDS: hydrOXYzine 10 MG Tablet PO (20:48)
[2024-09-02] VITALS (9 sets, daily range): BP systolic 66–180; BP diastolic 33–113; PULSE 66–130; RESP 12–40; TEMP 36.1–36.9; O2SAT 79–100; BMI 26.6
[2024-09-02] MEDS: Acetaminophen 500 MG Tablet 1000 MG PO ×2 (05:25→13:23)
[2024-09-02] MEDS: oxyCODONE 5 MG Tablet PO ×2 (05:26→13:23)
[2024-09-02] MEDS: hydrOXYzine 10 MG Tablet PO ×2 (05:26→13:23)
[2024-09-02] MEDS: Ondansetron 4 MG/2 ML Vial IV (05:26)
[2024-09-02 06:16] LABS: Absolute Lymphocyte Count 2.18 X10^3/uL (0.83-4.51); Absolute Neutrophil Count 4.5 X10^3/uL (2.0-7.7); Basophil# 0.04 X10^3/uL; Basophil% 0.5 % (0-1); Eosinophil# 0.17 X10^3/uL; Eosinophils% 2.3 % (0-5); Hematocrit 28.2 % (37-47); Hemoglobin 9.3 g/dL (12.0-15.0); Lymphocyte # 2.18 X10^3/ul (0.83-4.51); Mean Corpuscular Hgb 27.4 pg (27.0-32.0); Mean Corpuscular Volume 82.9 fL (81-99); Mean Platelet Vol. 8.7 fl (6.2-12.0); Monocyte# 0.56 X10^3/uL; Monocyte% 7.4 % (0-10); NRBC Flagged by Analyzer 0 % (0-5); Neutrophil # 4.53 X10^3/uL (2.7-7.7); Neutrophil % 60.3 % (47-70); Platelet Count 256 K/mm3 (150-450); RBC Distribution Width CV 15.8 % (11.6-14.6); RBC Distribution Width SD 47.6 fl (35.1-43.9); White Blood Count 7.5 K/mm3 (4.4-11.0)
[2024-09-02 06:36] LABS: Anion Gap 9 (5-15); BUN 18 mg/dL (7-18); BUN/Creat Ratio 16.7 RATIO (10-20); Calcium,Total 9.6 mg/dL (8.5-10.1); Chloride 96 mmol/L (98-107); Creatinine, Serum 1.08 mg/dL (0.55-1.02); EST Glomerular Filtration Rate 51 mL/min (>60); Est Glom Filt Rate - Afr Amer 62 mL/min (>60); Estimated Creatinine Clearance 34.59 ml/min; Glucose 112 mg/dL (74-106); Potassium 4.5 mmol/L (3.5-5.1); Sodium Level 128 mmol/L (136-145)
[2024-09-02 07:07] LABS: International Normalized Ratio 2.2
[2024-09-02] MEDS: Famotidine 20 MG Tablet PO (09:48)
[2024-09-02] MEDS: Carvedilol 12.5 MG Tablet PO (09:48)
[2024-09-02] MEDS: Calcitriol 0.25 MCG Capsule PO (09:48)
[2024-09-02] MEDS: Spironolactone 25 MG Tablet PO (09:49)
[2024-09-02] MEDS: Lidocaine 5% Patch 2 PATCH TOPICAL (09:49)
[2024-09-02] MEDS: Senna/Docusate Sodium 1 Tablet 2 TABLET PO (09:50)
[2024-09-02] MEDS: Furosemide 40 MG Tablet PO (09:51)
--- NOTE | 2024-09-02 11:51 | CASEMGMT ---
[facility] has not returned phone call yet. SW met with patient. SW told patient that we are still waiting on [facility] to get back to us. SW asked patient if she had other choices. Patient said [facility] and [facility]. SW asked patient if she is denied would she want to go somewhere private pay. Patient said it depends on the cost. Kelsie Ferguson MSW [facility]
--- NOTE | 2024-09-02 13:34 | CASEMGMT ---
SW spoke with patient and she said she cannot go home. Patient said she normally cares for her , but now she can't even take care of herself. Patient said she needs to go somewhere for therapy. SW explained her insurance is likely not going to approve her since she walked 300'. SW talked about home health and patient said that isn't enough. Patient said she does not have anyone that is available to help as everyone is busy. Patient is very anxious and kept saying, Oh my God, I cannot go home. SW told patient SW will make referrals to [facility], [facility], and [facility]. SW told patient SW will get back to her on private pay costs. [facility] private pay cost is $290.50 per day. They require 30 days up front. [facility] is full. [facility] is $310 per day for a private room and $297 for a semi private (none open right now). They also want 30 days up front. SW shared this information with patient. SW asked patient what she needs to be able to go home. Patient said her cannot help her as he has a bad back. Patient said she cannot get up on her own she cannot get off and on the toilet by herself. SW mentioned Meals on Wheels and home health, but patient feels this would not be enough. RN CM asked therapy to see patient regarding toileting etc. PT saw patient this afternoon. Patient did not do as well today. Patient is more painful, needed moderate assistance with getting up and toileting. ANA notified physician and it is now possible patient could get approved for SNF based on her deteriorating status. SW went to patient's room to explain this information to patient. Patient was leaning over in bed and would not respond to SW. ANA asked cupola charger insulation to come and see patient. type proof reproducer and RN addressed patient's needs. SW will talk with patient tomorrow. Kelsie SIDDIQUI
--- NOTE | 2024-09-02 15:04 | PN.HOSP_ITS ---
Reason for Visit Reason for Visit: Diagnoses Hypo-osmolality and hyponatremia (08/29/24) Contusion of other part of head, initial encounter (08/29/24) Objective Data Objective Data Vital Signs: Vital Signs Temp Pulse Resp BP Pulse Ox O2 Del Method O2 Flow Rate 98.3 F 66 15 180/83 H 96 Nasal Cannula 2 09/02/24 09:18 09/02/24 09:18 09/02/24 09:18 09/02/24 09:18 09/02/24 12:00 09/02/24 14:00 09/02/24 14:00 Oxygen Flow Rate (L/min) 2 Oxygen Delivery Method Nasal Cannula Weight: 66.1 kg Body Mass Index (BMI) 26.6 Intake & Output: Intake and Output for Last 24 Hours 08/31/24 09/01/24 09/02/24 22:59 23:59 23:59 Intake Total 900 / 900 1550 / 1550 Balance 900 / 900 1550 / 1550 Lab / Micro Data 09/02/24 06:05 09/02/24 06:05 Labs: Laboratory Results - last 24 hr 09/02/24 06:05: WBC 7.5, RBC 3.40 L, Hgb 9.3 L, Hct 28.2 L, MCV 82.9, MCH 27.4, MCHC 33.0, RDW Std Deviation 47.6 H, RDW Coeff of Donn 15.8 H, Plt Count 256, MPV 8.7, Immature Gran % (Auto) 0.500, Neut % (Auto) 60.3, Lymph % (Auto) 29.0, [place] % (Auto) 7.4, Eos % (Auto) 2.3, Baso % (Auto) 0.5, Absolute Neuts (auto) 4.5, Absolute Lymphs (auto) 2.18, Nucleated RBC % 0, PT 24.0 H, INR 2.2, Sodium 128 L , Potassium 4.5, Chloride 96 L, Carbon Dioxide 23.0, Anion Gap 9, BUN 18, C reatinine 1.08 H, Estim Creat Clear Calc 34.59, Est GFR (MDRD) Af Amer 62, Est GFR (MDRD) Non-Af 51 L, BUN/Creatinine Ratio 16.7, Glucose 112 H, Calcium 9.6 Radiography Diagnostic Testing: Radiology Impression Chest X-Ray 09/01/24 11:00 IMPRESSION: No definite acute chest disease. Electronically Signed: Arthur Guevara MD at 23:52 EST ,
[2024-09-02] MEDS: 0.9% Normal Saline (1000mL) 1,000 ML 999 ML IV (15:30)
--- NOTE | 2024-09-02 15:45 | RAD_ITS ---
STUDY: X-RAY CHEST REASON FOR EXAM: Female, 84 years old. sob TECHNIQUE: AP portable COMPARISON: 09/01/2024 FINDINGS: There is a right pleural effusion with consolidation of the right lower lobe. Heart is enlarged. Normal mediastinum and luis. Normal visualized pulmonary arteries. Tortuous aortic arch and descending thoracic aorta. Biventricular pacemaker noted on the left with electrodes in satisfactory position Dorsal spine and shoulders demonstrate degenerative changes Normal visualized ribs, and clavicles There is no demonstrated abnormality of the visualized soft tissue structures of the upper abdomen. Right pleural effusion and basal consolidation is new finding since previous study RAD/Chest 1 View (Portable) IMPRESSION: ASHD. Right pleural effusion and right lower lobe consolidation Electronically Signed: Freddie Cullen MD at 16:11 EST ,
--- NOTE | 2024-09-02 16:06 | CT_ITS ---
INDICATION: eval for pericard effusion and R pleural effusion EXAMINATION: CT CHEST WITHOUT CONTRAST - CT Chest W/O Contrast Injection TECHNIQUE: Helically acquired images were obtained of the chest. The protocol utilizes one or more of the following dose reduction techniques: automated exposure control, adjustment of mA and/or kV according to patient size,and/or use of iterative reconstruction technique. IV Contrast dosage and agent: None. RADIATION DOSAGE (If Supplied By Facility): CTDIvol = ( 15.22 ) mGy, DLP = ( 524.7 ) mGycm COMPARISON: FINDINGS: LUNGS, PLEURA AND LARGE AIRWAYS: Large complex possibly loculated right pleural collection compression atelectasis of the right lung with possible underlying infiltrates. . No pneumothorax. THYROID: No thyroid lesions. HEART AND PERICARDIUM: Heart size is enlarged. Questionable loculated complex pericardial collection.. CORONARY ARTERIES: Coronary artery calcifications are present VESSELS: Thoracic aorta is not dilated. Aberrant right subclavian artery. MEDIASTINUM AND SHERIDAN: No mediastinal or hilar adenopathy. Esophagus is unremarkable. No hiatal hernia. UPPER ABDOMEN: Probable hyperdense left renal cyst. BONES: Possible old sternal fracture. No suspicious lytic or blastic abnormality. CT/Chest without Contrast IMPRESSION: Large complex possibly loculated right pleural collection compression atelectasis of the right lung with possible underlying infiltrates. . Questionable loculated complex pericardial collection.. Cardiomegaly. Echocardiography may be of value if needed. Evaluation of the study is limited without intravenous contrast. Electronically Signed: Modesto Torres DO at 17:59 EST ,
[2024-09-02 16:08] LABS: Bedside Glucose 171 mg/dL (74-106)
--- NOTE | 2024-09-02 16:43 | NURSING ---
notified daugher of low o2 and need for bipap. patient is better now
[2024-09-02 17:14] LABS: Hematocrit 19.9 % (37-47); Hemoglobin 6.2 g/dL (12.0-15.0); Mean Corp Hgb Conc 31.2 g/dL (32-36); Mean Corpuscular Hgb 27.6 pg (27.0-32.0); Mean Corpuscular Volume 88.4 fL (81-99); Mean Platelet Vol. 8.8 fl (6.2-12.0); Platelet Count 259 K/mm3 (150-450); RBC Distribution Width CV 15.9 % (11.6-14.6); RBC Distribution Width SD 50.9 fl (35.1-43.9); Red Blood Count 2.25 M/mm3 (4.2-5.4); White Blood Count 12.1 K/mm3 (4.4-11.0)
[2024-09-02 17:32] LABS: BNP,B-Type NATRIURETIC PEPTIDE 1721.2 pg/mL (0-100)
--- NOTE | 2024-09-02 18:00 | NURSING ---
Patient was received to ICU 5 as an Emergent transfer after Code Blue on PCU. Patient arrived and was being placed on ICU Monitors and preparing for emergent CVC placement when she was noted to be in PEA again by Dr Cuevas who was to place the CVC. Deepali rucker was called and compressions started. See code blue documentation
--- NOTE | 2024-09-02 18:10 | RAD_ITS ---
STUDY: X-RAY CHEST REASON FOR EXAM: Female, 84 years old. cpr, ETT PLACEMENT TECHNIQUE: AP portable COMPARISON: September 02, 2024 3:50 PM FINDINGS: Moderate-sized right pleural effusion and mild right lower lobe atelectasis or infiltrate mild left basilar atelectasis Heart is enlarged Normal mediastinum and luis. Normal visualized pulmonary arteries. Normal visualized aortic arch and descending thoracic aorta. Pacer noted on the left with electrodes in satisfactory position. Endotracheal tube noted with tip 4.4 cm proximal to yonathan Dorsal spine and shoulders demonstrate degenerative change. Normal visualized ribs, and clavicles There is no demonstrated abnormality of the visualized soft tissue structures of the upper abdomen. RAD/Chest 1 View (Portable) IMPRESSION: Right pleural effusion and consolidation of the right lower lobe as well as mild left basilar atelectasis status post intubation. Electronically Signed: Freddie Cullen MD at 19:45 EST ,
--- NOTE | 2024-09-02 18:21 | PCM.PN.BLA ---
Progress Note Intubation Indication: Code Blue Consent was obtained from: Emergent The patient was placed in the appropriate sniffing position. The patient had continuous cardiac as well as pulse oximetry monitoring during the procedure. Direct laryngoscopy was then performed using a number 4 blade, which revealed a grade 1a view. A 7.0 mm endotracheal tube was visualized advancing between the cords to the level of 22 cm at the lip. The stylette was then removed and discarded. Tube placement was confirmed by fogging in the tube along with equal and bilateral breath sounds. Colorimetric change was visualized on the CO2 meter. The cuff was then inflated and the tube secured using a commercially available device. A good pulse oximetry waveform was seen on the monitor throughout the procedure. A portable chest x-ray has been ordered to confirm appropriate placement. The patient tolerated the procedure well. Procedures Hospitalists Procedures: [id number] Insert Emergency Airway
--- NOTE | 2024-09-02 18:48 | PCM.CODE.SUM ---
Code Blue Report Code Blue Summary Code Blue Summary: JAYLA MAYERS called at 1720 after patient was found unresponsive in bed. Patient notably had a hypoxic episode at 1530. Chest x-ray showed an apparent new right-sided pleural effusion. Stat CT chest was obtained shortly thereafter and wet read was again concerning for large new right-sided pleural effusion. Patient had been maintained on BiPAP with oxygen saturations in the mid 90s since her hypoxic episode at 1530. Per nursing staff, she returned from CT scan at 1705 on BiPAP and was stable at that time. She was then found unresponsive at 1720. Patient had pacemaker so initial rhythm could not be determined. Greatest concern was for respiratory arrest so patient was treated as PEA during her arrest. Notably, the magnet was held over her pacemaker to attempt to determine the underlying rhythm but she continued to have pacer spikes despite this. CPR was performed from 1720 to 1735. ROSC was achieved at 1735. Patient was given 4 doses of epinephrine 1 mg and 2 doses of sodium bicarb during the code. She was also intubated during the code, see procedure note for further details. After ROSC was obtained, patient was then transported up to the ICU for further management. She notably was started on Levophed 10 after obtaining ROSC and this was maintained on transfer up to the ICU. Patient unfortunately went back into cardiac arrest shortly after arriving up to the ICU. Time of CODE BLUE 1757. Again due to pacemaker spikes it was unclear what the underlying rhythm was. She was initially treated as PEA and received another 2 doses of epinephrine 1 mg and 1 dose of sodium bicarb. At pulse check at 1805 there was concern for possible V. tach versus V-fib so patient was defibrillated with 200 J. Unfortunately patient did not regain a pulse with this defibrillation. She was given another round of epinephrine 1 mg and a dose of amiodarone 300 mg during subsequent pulse checks again with no return of pulse. Patient's arrived to the floor at around 1805 and I spoke with him as Dr. Cuevas ran the code. I did take back to see the patient while the code was taking place. Ultimately due to inability to regain a pulse despite maximal medical therapy, the code was discontinued at 181. Time of 1810.
--- NOTE | 2024-09-02 18:48 | PCM.DEATH ---
Preliminary Cause of Preliminary Cause of Preliminary Cause of : Cardiac arrest suspected secondary to acute intrathoracic hemorrhage with possible cardiac tamponade from pericardial effusion Date of Admission: 08/29/24 Date of : 09/02/24 Principle Diagnosis Problem List: Active and Suspected Problems (Updated 08/29/24 @ 12:[address] Freddie Merida, DO) Vasovagal syncopes (Acute) Dehydration, mild (Acute) Facial hematoma (Acute) Contusion of face (Acute) Hyponatremia (Acute) CHI (closed head injury) (Acute) Hospital Course Patient is an 84-year-old female who presented to [facility] ED on 08/29/2024 after multiple falls at home. Patient had significant past cardiac history of paroxysmal A-fib, previous SVT s/p ablation, conduction system disorder s/p pacemaker placement and chronic HFpEF. Patient noted that she had been started on Entresto by cardiology and had experienced lightheadedness and dizziness shortly after beginning this medication. This subsequently led to a few small falls but then patient had a fall where she fell forward from ground-level and hit her chin and lower face as well as her chest hard. These falls were unwitnessed per patient. Patient had self discontinued Entresto the day prior to admission but given the ongoing falls and lightheadedness/dizziness she came in for further evaluation. Patient had significant left periorbital bruising, significant bruising diffusely on the chin and upper chest bruising as well. CT head was negative for intracranial hemorrhage and imaging was negative for any acute fractures. She was found to have an CHRIS and mild acute on chronic anemia and was admitted for further management. Importantly, patient was also found to have a supratherapeutic INR of 5.8 on admission; was on warfarin for A-fib. INR did improve back to 2.2 by 09/01 with holding home warfarin. Sodium level resolved shortly after admission and CHRIS also resolved after IV fluid resuscitation. During the hospitalization patient reported significant facial and diffuse chest pain that was limiting her ability to work with therapy. Chest x-ray on 09/01 was obtained to rule out occult fracture and the x-ray showed no fractures and lung salas were clear. Patient notably was hemodynamically stable and on room air until the evening of 09/01. She had 2 L placed at night for symptom relief as her oxygen saturations were remaining in the mid 90s. On the afternoon of 09/02, patient was found unresponsive in the bedside chair shortly after working with physical therapy. She did recover consciousness after about 30 seconds to a minute but appeared fairly pale and diaphoretic. Was suspected this could be vasovagal related due to pain that she had with therapy. However, she had increased work of breathing noted at that time and her oxygen saturations were consistently in the low to mid 80s on 6 L nasal cannula. She was placed on Venturi mask and her oxygenation remained in the 80s. Was then placed on BiPAP with improvement to the 90s and some improvement in work of breathing. Chest x-ray was obtained and showed a significant right sided pleural effusion, which was markedly different from the chest x-ray the day before. On my read of the chest x-ray I was also concerned for a possible pericardial effusion given an enlarged heart border. Stat CT chest without contrast was obtained at that time. Patient returned from CT around 1705 and then unfortunately was found unresponsive in bed at 1720 and did not have a pulse. CODE BLUE was initiated at that time. Please see CODE BLUE note for further details. In short, patient was pulseless for 15 minutes. She was intubated during that time and received 4 doses of epinephrine and 2 doses of sodium bicarbonate. Was suspected that she had PEA but her rhythm was paced and despite holding a magnet over the pacemaker we continued to get pacer spikes. Thus, she was treated as PEA throughout that arrest. ROSC was obtained after 15 minutes and patient was quickly moved up to the ICU for further management. Was on Levophed peripherally at 10 and maintaining a pulse on arrival to the ICU. However, about 5 to 10 minutes after arrival to the ICU she again lost a pulse and CPR was initiated. Central line was attempted during that code but access was difficult to obtain. Patient was thought to be in V-fib after about 8 minutes of compressions and she was defibrillated but with no return of pulse. She was also given bolus of amiodarone without improvement. Patient's arrived in the ICU during the second CODE BLUE and other family arrived shortly after that. After 15 minutes without achieving ROSC and discussion with patient's , code was discontinued. Patient time of 1810. CT chest read became available after patient's and showed a large complex possible loculated right pleural fluid collection, as well as a questionable loculated complex pericardial collection with cardiomegaly. Stat labs that resulted after patient status showed that the patient's hemoglobin had dropped significantly from 9.3 on the morning of 09/02 to 6.2 that afternoon. In total, patient certainly had some internal bleeding either into the pericardium and/or pleural space on the afternoon of 09/02 given the hemoglobin drop. Have concerned that she may have had a developing pericardial effusion after her fall with a supratherapeutic INR that was indolent and notably not called on chest x-ray on 09/01, which may have led to cardiac tamponade on the afternoon of 09/02 contributing to a cardiac arrest. Discharge diagnoses: ? Multiple falls with debility ? Paroxysmal A-fib on warfarin with supratherapeutic INR ? Acute on chronic anemia ? Conduction system disorder s/p pacemaker placement, history of SVT s/p ablation ? Chronic congestive HFpEF with pulmonary hypertension ? Osteoporosis Total clinical time spent by myself addressing the patient's medical issues, reviewing all the data, and collaborating with patient's care team: 55 minutes. Visit Charges Inpatient E&M: 33019 Disch Hosp >30min
== END 2024-09-02 21:00 | DRG 673 ==
LOC: ED 12:22 → PCU 13:08 → ICU 09-02 17:51
PROVIDERS: Internal Medicine; Admitting Provider Internal Medicine; Emergency Provider Emergency Medicine; PCP Family Medicine; Visit Provider Hospitalist
DX: N17.9 Acute kidney failure, unspecified (principal); J96.01 Acute respiratory failure with hypoxia; I31.4 Cardiac tamponade; I31.39 Other pericardial effusion (noninflammatory); E87.1 Hypo-osmolality and hyponatremia; I50.32 Chronic diastolic (congestive) heart failure; L97.222 Non-pressure 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 layer exposed; J90 Pleural effusion, not elsewhere classified; L97.212 Non-pressure chronic ulcer of right calf with fat layer exposed; I47.10 Supraventricular tachycardia, unspecified; I27.20 Pulmonary hypertension, unspecified; R58 Hemorrhage, not elsewhere classified; S20.20XA Contusion of thorax, unspecified, initial encounter; I11.0 Hypertensive heart disease with heart failure; I48.0 Paroxysmal atrial fibrillation; I46.8 Cardiac arrest due to other underlying condition; I25.10 Atherosclerotic heart disease of native coronary artery without angina pectoris; I95.1 Orthostatic hypotension; E78.5 Hyperlipidemia, unspecified; M47.819 Spondylosis without myelopathy or radiculopathy, site unspecified; S05.12XA Contusion of eyeball and orbital tissues, left eye, initial encounter; W19.XXXA Unspecified fall, initial encounter; Z66 Do not resuscitate; Z79.01 Long term (current) use of anticoagulants; Z90.710 Acquired absence of both cervix and uterus; Z79.83 Long term (current) use of bisphosphonates; Z82.3 Family history of stroke; Z79.891 Long term (current) use of opiate analgesic; M81.0 Age-related osteoporosis without current pathological fracture; Z95.0 Presence of cardiac pacemaker; R79.1 Abnormal coagulation profile; Z79.2 Long term (current) use of antibiotics
CPT/HCPCS: 11042; 11045; 31500; 36415; 70450; 70486; 71045; 71046; 71250; 72125; 80048; 82962; 83735; 83880; 84100; 84484; 85025; 85027; 85610; 92950; 93005; 94002; 94668; 94762; 97110; 97162; 97166; 97530; 97535; 99285; J7030; J7040; A4216; J2405